=== PATIENT | female | born 1930 | race Caucasian/White ===

== ENCOUNTER 2016-07-09 11:58 | Inpatient (IN) | payer MEDICARE, MEDICAID ==
[~2016-07-09] VITALS: Ht 160 cm; Wt 79.8 kg
[~2016-07-09 11:58] MED LIST: ADVAIR; ALBU8.5H INH; ASPI-611 PO; CALC-191 PO; CIPR-280 PO; CLOP75TA PO; DOCU-175 PO; ENAL10TA PO; FURO40TA70 PO; GABA-215 PO; GUAI400T65 PO; HYDR-3989 PO; LATA2.5D7 BOTH EYES; MAGN250T33 PO; METR-116 PO; NEBI2.5T5 PO; OMEP40CA30 PO; PNEUMOCOCCAL VAC. ADMIN. CHARGE INJ ONE; POLY17PO2 PO; POTA-81 PO; TOLT4CAP12 PO
--- OUTSIDE RECORDS SUMMARY | 2016-07-09 12:03 | XMS REPORT | Continuity of Care Document ---
Author Author [facility] Organization [facility] Address Unknown Phone Unavailable Allergies Medications Problems Procedures Code Description Performed By Performed On 13.59 EXTRACAP LENS EXTRAC NEC 05/08/2012 13.90 OPERATION ON LENS, NOT ELSEWHERE CLASSIFIED Jose Hightower MD 05/08/2012 14.74 MECH VITRECTOMY NEC 05/08/2012 Results Test Result Range GLUCOSE (POC) - 05/08/12 06:34 GLUCOSE (POC) 130 mg/dL 70-99 HEMOGLOBIN - 05/08/12 06:41 MEAN CELL VOLUME 89.7 fl 80.0-100.0 HEMOGLOBIN 13.8 gm/dL 12.0-16.0 METABOLIC PANEL, BASIC - 05/08/12 06:41 POTASSIUM 4.1 mmol/L 3.5-5.3 EST GFR (MDRD) 41 mL/min > 59 ANION GAP 11 mmol/L 5-15 GLUCOSE 129 mg/dL 70-99 CALCIUM 9.4 mg/dL 8.5-10.1 BLOOD UREA NITROGEN 22 mg/dL 7-20 CREATININE 1.3 mg/dL 0.6-1.0 SODIUM 143 mmol/L 135-148 CHLORIDE 103 mmol/L 98-110 CARBON DIOXIDE 29 mmol/L 21-32 Encounters ACCT No. Visit Date/Time Discharge Status Pt. Type Provider Facility Loc./Unit Complaint [id number] 05/08/2012 05:57:00 2012 10:55:00 DIS Outpatient Jose Hightower MD [facility]
--- OUTSIDE RECORDS SUMMARY | 2016-07-09 12:03 | XMS REPORT | Continuity of Care Document ---
Author Author [facility] Organization [facility] Address Unknown Phone Unavailable Care Team Providers Care Skirt Trimmer Name Role Phone Yuval Hoang Primary Care Physician [phone] Source Comments Some departments are not documenting in the electronic medical record. If you do not see the information that you expected, contact Release of Information in the Health Information Management department at [phone] for further assistance in locating additional records.[facility] Active Allergies and Adverse Reactions Allergen Noted Date Severity Reactions Comments Aspartame 09/16/2010 UNKNOWN Contrast Dye Iv, Iodine 09/16/2010 RASH, ITCHING Containing Gluten 09/16/2010 SEE COMMENTS Celiac disease Keflex 09/16/2010 NAUSEA AND VOMITING Lactose 09/16/2010 NAUSEA AND VOMITING Merthiolate (Thimerosal) 09/16/2010 UNKNOWN Penicillins 09/16/2010 SEE COMMENTS Bruising from IM injection Cjoumvx-Dze-Kly Reductase 09/16/2010 UNKNOWN Inhibitors Current Medications Prescription Sig. Disp. Refills Start End Date Status Date budesonide/formoterol(+) Inhale 2 Puffs by mouth Active (SYMBICORT) 160/4.5 mcg twice daily. IN HFAA inhalation clonidine (CATAPRESS) 0.1 Take 0.1 mg by mouth Active mg PO tablet twice daily. hydrochlorothiazide Take 25 mg by mouth Active (HYDRODIURIL) 25 mg PO daily. tablet enalapril (VASOTEC) 10 mg Take 10 mg by mouth Active PO tablet daily. Aspirin 81 mg PO Tab Take 81 mg by mouth Active daily. potassium chloride SR Take 20 mEq by mouth Active (K-DUR) 20 mEq PO tablet daily. furosemide (LASIX) 40 mg Take 40 mg by mouth Active PO tablet daily. albuterol (PROVENTIL; Inhale 2 Puffs by mouth Active VENTOLIN) 90 every 6 hours as needed. mcg/Actuation IN inhaler albuterol-ipratropium Inhale 3 mL solution as Active (DUO-NEB) 0.5 mg-3 mg(2.5 directed every 6 hours as mg base)/3 mL IN needed. nebulizer solution nitroglycerin (NITROSTAT) Place 0.4 mg under tongue Active 0.4 mg SL tablet as Needed. tiotropium (SPIRIVA WITH Inhale 18 mcg by mouth Active HANDIHALER) 18 mcg IN daily. capsule for inhaler LUTEIN PO Take 45 mg by mouth Active daily. docusate (COLACE) 100 mg Take 100 mg by mouth four Active PO capsule times daily as needed. Magnesium 100 mg PO Cap Take 100 mg by mouth Active daily. CALCIUM CARBONATE/VITAMIN Take 2 Tabs by mouth Active D3 (CALCIUM 600 WITH twice daily. VITAMIN D3 PO) Red Yeast Rice Extract Take 2 Caps by mouth Active 600 mg PO Cap twice daily. Chromium Picolinate 500 Take 500 mcg by mouth Active mcg PO Cap twice daily. ferrous sulfate 325 mg Take 325 mg by mouth Active (65 mg iron) PO tablet daily. loratadine (CLARITIN) 10 Take 10 mg by mouth Active mg PO tablet daily. famotidine (PEPCID) 10 mg Take 10 mg by mouth twice Active PO tablet daily. oxycodone/acetaminophen Take 1 Tab by mouth every 60 Tab 0 09/22/19 Active (PERCOCET) 5/325 mg PO 4 hours as needed for 11 tablet Pain. senna/docusate Take 1 Tab by mouth twice 09/22/19 Active (SENOKOT-S) 8.6/50 mg PO daily. 11 tablet Active Problems Problem Noted Date Lumbar spinal stenosis 09/21/2010 Social History Tobacco Use Types Packs/Day Years Used Date Never Smoker Alcohol Use Drinks/Week oz/Week Comments No Last Filed Vital Signs Vital Sign Reading Time Taken Blood Pressure 121/51 09/21/2010 11:10 AM CDT Pulse 79 09/21/2010 11:10 AM CDT Temperature 37.2 C (98.9 F) 09/21/2010 11:10 AM CDT Respiratory Rate - - Height 1.6 m (5' 3") 09/16/2010 8:48 AM CDT Weight 83.3 kg (183 lb 10.3 oz) 09/16/2010 8:48 AM CDT Body Mass Index 32.54 09/16/2010 8:48 AM CDT Oxygen Saturation 97% 09/21/2010 11:34 AM CDT Plan of Care Health Maintenance Due Date Last Done Comments Physical (Comprehensive) 1935 Exam Pertussis Vaccine 1939 Tetanus Vaccine 1945 Shingles Vaccine 1988 Osteoporosis Screening 1993 Prevnar/Pneumovax (#1) 1993 Influenza Vaccine 12/10/2016 Results from Last 3 Months Not on file
--- OUTSIDE RECORDS SUMMARY | 2016-07-09 12:03 | XMS REPORT | Referral Summary ---
Author Author [facility] Organization [facility] Address Unknown Phone Unavailable Care Team Providers Care Design Project Manager Name Role Phone Andrey Maria Primary Care Physician [phone] Encounter VC Date(s): 08/27/14 - 08/27/14 [facility] [address] [place] [id number]- Discharge Disposition: 01-Home or Self Care Attending Physician: Juan Maria MD Admitting Physician: Amaya Gusman MD Vital Signs No data available for this section Problem List Condition Effective Dates Status Health Status Informant Allergic Active rhinitis(Confirmed) Allergy(Confirmed) Active Anxiety(Confirmed) Active Arthritis(Confirmed) Active Asthma(Confirmed) Active Afib(Confirmed) Active Benign essential Active hypertension (disorder)(Confirmed ) Cataracts, Active bilateral(Confirmed) Overactive Active bladder(Confirmed) Bronchitis(Confirmed Active ) Chicken Active pox(Confirmed) Chronic airway Active obstruction(Confirme d) Cirrhosis(Confirmed) Active Condition(Confirmed) Active 1 Condition(Confirmed) Active 2 condition(Confirmed) Active 3 CHF (congestive Active heart failure)(Confirmed) Coronary Active arteriosclerosis (disorder)(Confirmed ) Coronary Active atherosclerosis(Conf irmed) DDD (degenerative Active disc disease)(Confirmed) Depression(Confirmed Active ) Diabetes(Confirmed) Active Drug Active abuse(Confirmed) Ear Active infection(Confirmed) Fibromyalgia(Confirm Active ed) GERD Active (gastroesophageal reflux disease)(Confirmed) GI Active bleeding(Confirmed) Stress Active incontinence(Confirm ed) Glaucoma(Confirmed) Active High Active cholesterol(Confirme d) Hypertension(Confirm Active ed) Insomnia(Confirmed) Active Migraine Active headache(Confirmed) Obstructive sleep Active apnea, adult(Confirmed) Overweight(Confirmed Active ) Pneumonia(Confirmed) Active Psoriasis(Confirmed) Active Restless legs Active (disorder)(Confirmed ) Sinus Active infection(Confirmed) Sleep Active apnea(Confirmed) Substance Active abuse(Confirmed) TMJ Active disease(Confirmed) Tension Active headache(Confirmed) Ulcer(Confirmed) Active Urge Active incontinence(Confirm ed) 1digenerative disc disorder 2bladder problems 3bleeding Allergies, Adverse Reactions, Alerts Substance Reaction Severity Status cephalexin Active iodine Unknown Active penicillin Active Medications aspirin 81 mg, Oral, Daily, 0 Refill(s) Start Date: 09/24/13 Status: Ordered calcium carbonate Oral, Daily, 0 Refill(s) Start Date: 02/18/15 Status: Ordered clopidogrel 75 mg oral tablet 1 tabs, Oral, Daily, 0 Refill(s) Start Date: 04/15/14 Status: Ordered Colace 100 mg oral capsule 1 caps, Oral, BID, as needed for constipation, # 20 caps, 0 Refill(s) Start Date: 01/16/14 Status: Ordered enalapril 10 mg oral tablet 1 tabs, Oral, BID, # 60 tabs, 2 Refill(s), Pharmacy: [facility] , 1 tabs Oral BID Start Date: 01/30/14 Status: Ordered gabapentin 300 mg oral capsule 2 caps, Oral, BID, 0 Refill(s) Start Date: 09/24/13 Status: Ordered guaiFENesin 400 mg oral tablet 1 tabs, Oral, BID, 0 Refill(s) Start Date: 04/15/14 Status: Ordered latanoprost ophthalmic 1 drops, Eye-Both, Bedtime (once a day), 0 Refill(s) Start Date: 01/16/14 Status: Ordered magnesium oxide 250 mg oral tablet 1 tabs, Oral, Daily, 0 Refill(s) Start Date: 01/04/14 Status: Ordered metoprolol tartrate 25 mg oral tablet 25 mg 1 tabs, Oral, BID, # 180 tabs, 0 Refill(s) Start Date: 02/18/15 Status: Ordered MiraLax 17 g, Oral, Daily, 0 Refill(s) Start Date: 04/15/14 Status: Ordered [place] 5 mg-325 mg oral tablet 1 tabs, Oral, q4hr, as needed for pain, KATELIN, # 60 tabs, 0 Refill(s) Start Date: 09/11/14 Status: Ordered nystatin 100,000 units/g topical cream 1 malka, Topical, BID, Rash, 0 Refill(s) Start Date: 11/29/14 Status: Ordered nystatin 100,000 units/g topical powder 1 malka, Topical, BID, # 15 g, 0 Refill(s) Start Date: 02/18/15 Status: Ordered omeprazole 20 mg, Oral, Daily, 0 Refill(s) Start Date: 02/18/15 Status: Ordered potassium chloride 10 mEq oral capsule, extended release See Instructions, TAKE 2 CAPSULE (20MEQ) BY ORAL ROUTE 2 TIMES EVERY DAY WITH FOOD, # 60 unknown unit, 2 Refill(s), eRx: [facility] [id number], TAKE 1 CAPSULE (10MEQ) BY ORAL ROUTE 2 TIMES EVERY DAY WITH FOOD Start Date: 01/28/14 Status: Ordered ProAir HFA 90 mcg/inh inhalation aerosol 2 puffs, Inhalation, q4hr, as needed for wheezing, 0 Refill(s) Start Date: 01/16/14 Status: Ordered Symbicort 160 mcg-4.5 mcg/inh inhalation aerosol 2 puffs, Inhalation, BID, To replace Advair (non-formulary [employer]). Candi [facility] # 1 Each, 3 Refill(s) Start Date: 12/10/14 Status: Ordered tolterodine 2 mg oral capsule, extended release 2 mg 1 caps, Oral, Daily, # 90 caps, 0 Refill(s) Start Date: 02/18/15 Status: Ordered Results No data available for this section Immunizations Vaccine Date Refusal Reason influenza virus vaccine, inactivated 01/11/14 influenza virus vaccine, live 03/20/13 pneumococcal 23-polyvalent vaccine 01/02/14 zoster vaccine live 12/15/12 Procedures Procedure Date Related Diagnosis Body Site Eye examination 2012 Social History Social History Type Response Smoking Status Never smoker Assessment and Plan No data available for this section
--- OUTSIDE RECORDS SUMMARY | 2016-07-09 12:03 | XMS REPORT | Continuity of Care Document ---
Author Author [facility] Organization [facility] Address Unknown Phone Unavailable Support Name Relationship Address Phone JES SIEGEL MD Caregiver [address] [place] [address] [place] [address] PEDRO LIU MD Caregiver [address] [place] [address] [place] [phone] JUAN CLARK MD Caregiver [address] [place] [id number] [phone] DARLEEN LAWTON Next Of Kin [address] [place] [address] Insurance Providers Payer Name Policy Number Subscriber Name Relationship Medicare [id number] Aurelia Duran 16 Self [facility] [id number] Aurelia Duran 16 Self Advance Directives Directive Response Recorded Date/Time Advanced Directives Type Living Will 10/13/13 1:33pm Ordered Resuscitation Status Full Code 01/08/14 7:00pm Chief Complaint and Reason for Visit Chief Complaint CP, DIFFICULT BREATHING Reason for Visit Dyspnea on exertion COPD exacerbation Chest pain on exertion Pneumonia Dyspnea on exertion Diastolic CHF, chronic Obesity (BMI 30.0-34.9) Chest pain as manifestation of blood transfusion reaction HTN (hypertension) Elevated serum creatinine Hyponatremia Problems Medical Problems Problem Onset Date Status Headache, chronic daily Unknown Active Headache, chronic daily Unknown Active Muscle strain Unknown Active Cellulitis Unknown Active Candidiasis, intertrigo Unknown Active Lower extremity pain Unknown Active Muscle strain Unknown Active CHF exacerbation Unknown Active A-fib Unknown Active Asthma with COPD Unknown Active CAD (coronary artery disease) Unknown Active Diabetes Unknown Active GERD (gastroesophageal reflux disease) Unknown Active Insomnia Unknown Active Urge incontinence Unknown Active Sleep apnea Unknown Active Glaucoma Unknown Active Depression Unknown Active History of cirrhosis Unknown Resolved Dyspnea on exertion Unknown Active COPD exacerbation Unknown Active Chest pain on exertion Unknown Active Pneumonia Unknown Active Dyspnea on exertion Unknown Active Diastolic CHF, chronic Unknown Active Obesity (BMI 30.0-34.9) Unknown Active Chest pain as manifestation of blood transfusion reaction Unknown Active HTN (hypertension) Unknown Active Elevated serum creatinine Unknown Active Hyponatremia Unknown Active Medications Medication Dose Route Sig Days/Qty Instructions Order Date Discontinued Date Status Flaxseed 1,000 Mg PO DAILY 08/05/13 01/01/14 Discontinued Magnesium Oxide 250 Mg PO DAILY 08/05/13 Active Red Yeast Rice 1,200 Mg PO TWICE A DAY 08/05/13 Active Aspirin 81 Mg PO DAILY 08/05/13 Active Antiox#10/Om3/Dha/Epa/Lut/Zeax 1 Each PO DAILY 08/05/13 Active Calcium Carbonate 1 Tab PO TWICE A DAY 08/05/13 Active Fish Oil/Cartwright-3 Fatty Acids 1 Cap PO TWICE A DAY 08/05/13 Active Loratadine 10 Mg PO DAILY 08/05/13 Active Furosemide 40 Mg PO DAILY 10/13/13 Active Gabapentin 600 Mg PO TWICE A DAY 10/13/13 Active Omeprazole 40 Mg PO BEFORE BREAKFAST 10/13/13 Active Iron Ps Cmplx/Vit B12/Fa 1 Udcap PO TWICE A DAY 10/13/13 Active Potassium Chloride 10 Meq PO TWICE A DAY 10/13/13 Active Budesonide/Formoterol Fumarate 10.2 Gm IH TWICE A DAY 10/13/13 Active Tolterodine Tartrate 4 Mg PO DAILY 10/13/13 Active Nystatin 0 MC THREE TIMES A DAY 1 Qty Apply to affected area in right groin 3 times daily until 10/13/13 01/01/14 Discontinued Hydrocodone Bit/Acetaminophen 1-2 Tab PO EVERY 4-6 HOURS PRN PAIN 20 Qty 10/13/13 01/08/14 Discontinued Enalapril Maleate 1 Tab PO TWICE A DAY 60 Qty 01/03/14 Active Flaxseed 2,000 Mg PO TWICE A DAY 01/08/14 Active Docusate Sodium 1 Cap PO TWICE A DAY 01/08/14 Active Latanoprost 1 Drop RIGHT EYE BEDTIME 01/08/14 Active Meclizine HCl 1 Tab PO THREE TIMES A DAY PRN DIZZINESS 01/08/14 Active Albuterol Sulfate 2 Puff INH EVERY 4-6 HOURS PRN PRN ORDERS 01/08/14 Active Prednisone 0 PO DAILY For take per pk directions 1 Qty 01/12/14 Active Social History Social History Problem Response Recorded Date/Time Smoking Status Unknown if ever smoked 10/13/2013 1:39pm Hospital Discharge Instructions Instructions: Care Instructions: Reason for Hospitalization: COPD exacerbation I was in the hospital because (patient own words): "COUGH AND FIGHTING FOR BREATH" Discharge Diet: ADA, 2 gm low sodium, gluten free Discharge Activity: as tolerated Follow Up Appointments: see PCP in one week for hospital followup Patient Instructions: should your symptoms return you could contact your PCP through the office or return to the ED for emergent evaluation Condition at time of discharge: Good see discharge instructions Condition at time of discharge: Good Good 1.May drive in 4 weeks if you had your LEFT extremity operated on. 2.May drive in 6 weeks if you had your RIGHT extremity operated on. Wound/Incision Care: Tegaderm 1.Clear dressing is to remain in place for 2 weeks. 2.Do not pick at it or scrub it while showering. 3.If the dressing begins to pull up, secure it with 4x4 gauze pad and tape. 4.You may shower; however, do not submerge yourself in water until the incision is completely healed. Mepilex 1.Dressing to remain in place until your follow up appointment. 2.If this dressing starts peeling up slightly, it may be reinforced, if it peels excessively, notify your surgeon's office. 3.You may shower with the dressing in place, but do not submerge in water 4.Do not allow water to seep under the dressing, if it should seep under, remove the dressing and notify your surgeon. Notify Physician If: Call your Surgeon if you have: 1.Chest pain, difficulty breathing, fever>100.5 degrees, chills, heart rate >100, confusion, or persistent nausea/vomitting. 2.Severe pain, swelling, redness, or warmth in either of your legs. 3.During office hours, call [phone] 4. After hours, please call [facility] at [phone], and have the sand mill operator facing sand page your Surgeon IN THE EVENT OF AN EMERGENCY, seek medical care at the nearest Emergency Room Condition at time of discharge: Good Care Plan Discharge Patient: Goal: Understand discharge plan Patient Instructions: see patient instructions Plan of Care Discharge Date 01/12/14 6:00pm Disposition 06 HOME HEALTH SERVICE Instructions/Education Provided DI for Chronic Obstructive Pulmonary Disease Prednisone Prescriptions See Medications Section Functional Status Query Response Date Recorded Physical Hygiene Self January 12, 2014 3:37pm Disabilities Visual January 12, 2014 3:37pm Devices Used Walker January 12, 2014 3:37pm Dressing Self January 12, 2014 3:37pm Ambulation Assist January 12, 2014 3:37pm Diet Self January 12, 2014 3:37pm Mental Status Alert October 13, 2013 4:56pm Disabilities Visual January 12, 2014 3:37pm Devices Used Walker January 12, 2014 3:37pm Physical Hygiene Self January 12, 2014 3:37pm Dressing Self January 12, 2014 3:37pm Ambulation Assist January 12, 2014 3:37pm Diet Self January 12, 2014 3:37pm Allergies, Adverse Reactions, Alerts Allergen Type Severity Reaction Status Last Updated iodine Allergy Unknown Active 01/08/14 Penicillin Allergy Unknown Active 01/08/14 Cephalexin Allergy Intermediate Active 01/08/14 Immunizations Name Given Type Hx [place] [facility] [place] Pneumococcal Vacc[place]02[place] [facility] [place] [place] Hx Tetanus, Diptheria, Pertussis N UNKNOWN Historical Hx Influenza Vaccination [place] [facility] [place] [place] Hx Tetanus Diptheria N UNKNOWN Historical Hx Tetanus, Diptheria, Pertussis N UNKNOWN Historical Hx Tetanus Toxoid Vaccination N UNKNOWN Historical pneumococcal polysaccharide PPV23 01/02/14 Administered pneumococcal polysaccharide PPV23 01/02/14 Administered Influenza, seasonal, injectable 01/11/14 Administered Influenza, seasonal, injectable 01/11/14 Administered Influenza, seasonal, injectable 01/11/14 Administered Vital Signs Acute Vital Signs Vital Response Date/Time Temperature (Fahrenheit) 96.1 deg F (96.8 - 99.1) Temperature (Calculated Celsius) 35.18925 degrees C (36.0 - 37.3) Temperature Source Oral Pulse Rate (adult) 90 bpm (60 - 100) Respiratory Rate 18 breaths/min (10 - 20) O2 Sat by Pulse Oximetry 96 % (90 - 100) Oxygen Delivery Method Room Air Blood Pressure 151/82 mm Hg Blood Pressure Source Automatic Cuff Height 5 ft 3 in Weight 181 lb Body Mass Index 32.0 kg/m^2 Results Test Source Date Result Interp. Ref. Range Comments Activated Partial Thromboplast Time January 08, 2014 12:24pm 32.6 SEC N 24-36 Alanine Aminotransferase (ALT/SGPT) January 08, 2014 12:24pm 24 U/L N 9-52 Albumin January 08, 2014 12:24pm 4.4 G/DL N 3.5-5.0 Albumin/Globulin Ratio January 08, 2014 12:24pm 1.3 RATIO N 1.1-2.2 Alkaline Phosphatase January 08, 2014 12:24pm 75 U/L N 38-126 Amylase Level January 08, 2014 12:24pm 81 U/L N 30-110 Anion Gap January 12, 2014 5:29am 10 MEQ/L N 5-15 Aspartate Amino Transf (AST/SGOT) January 08, 2014 12:24pm 27 U/L N 14 -36 BUN/Creatinine Ratio January 12, 2014 5:29am 26 RATIO N 6-26 Band Neutrophils # January 10, 2014 4:26am 1.8 T/MM3 - Band Neutrophils % January 10, 2014 4:26am 12.0 % H 0-6 Basophils # (Auto) January 12, 2014 5:29am 0.0 T/MM3 N 0-0.2 Basophils (%) (Auto) January 12, 2014 5:29am 0.3 % N 0-2 Blood Urea Nitrogen January 12, 2014 5:29am 37.0 MG/DL H 7-17 C-Reactive Protein August 05, 2013 1:19pm 14.3 MG/L H 0-9 Calcium Level January 12, 2014 5:29am 9.1 MG/DL N 8.4-10.2 Calculated Osmolality January 12, 2014 5:29am 277 MOSM/KG N 261-280 Carbon Dioxide Level January 12, 2014 5:29am 27 MEQ/L N 22-30 Chemistry Specimen Hemolysis January 12, 2014 5:29am < 15 0-25 0-25: No Hemolysis.26-70: Slight Hemolysis - can falsely elevate K and Urine Protein. 71-285: Moderate Hemolysis - can falsely elevate K, Troponin I, CA 19-9, PTH, CSF GLucose, and Urine Protein, and can falsely decrease Phenytoin. 286-999: Gross Hemolysis - can falsely elevate K, Troponin I, CA 19-9, PTH, CSF Glucose, and Urine Protine, and can falsely decrease Phenytoin. Recommend specimen recollection. Chloride Level January 12, 2014 5:29am 99 MEQ/L N 98-107 Creatinine January 12, 2014 5:29am 1.4 MG/DL DH 0.7-1.2 Eosinophils # (Auto) January 12, 2014 5:29am 0.0 T/MM3 N 0-0.5 Eosinophils # (Manual) January 09, 2014 12:36am 0.1 T/MM3 N 0-0.5 Eosinophils % (Manual) January 09, 2014 12:36am 1.0 % N 0-4 Eosinophils (%) (Auto) January 12, 2014 5:29am 0.0 % N 0-4 Erythrocyte Sedimentation Rate August 05, 2013 1:19pm 17 MM/HR N 0-20 Globulin January 08, 2014 12:24pm 3.4 G/DL N 2.4-3.6 Glomerular Filtration Rate Calc January 12, 2014 5:29am 36 - Glucometer January 12, 2014 6:15am 159 mg/dL H 65-110 Glucose Level January 12, 2014 5:29am 204 MG/DL H 65-110 Hematocrit January 12, 2014 5:29am 38.5 % N 36-46 Hemoglobin January 12, 2014 5:29am 12.8 GM/DL N 12-16 Hemoglobin A1c January 01, 2014 5:56pm 6.0 % N 6-7 <6.0 NON-DIABETIC RANGE6.0-7.0 ADA THERAPEUTIC RANGE >7.0 ACTION SUGGESTED Icterus Index January 12, 2014 5:29am < 2 0-7 Immature Granulocyte # (Auto) January 12, 2014 5:29am 0.22 T/MM3 H 0.00- 0.03 Immature Granulocyte % (Auto) January 12, 2014 5:29am 2.0 % H 0.0-0.5 Lab Scanned Report January 01, 2014 9:21pm LAB TEST FORM REQUEST [id number] - Lipase January 08, 2014 12:24pm 136 U/L N 23-300 Lymphocytes # (Auto) January 12, 2014 5:29am 0.8 T/MM3 L 1-4.8 Lymphocytes # (Manual) January 11, 2014 4:41am 1.1 T/MM3 N 1-4.8 Lymphocytes % (Manual) January 11, 2014 4:41am 9.0 % L 23-45 Lymphocytes (%) (Auto) January 12, 2014 5:29am 7.1 % L 23-45 Magnesium Level January 09, 2014 12:36am 2.3 MG/DL N 1.6-2.3 Mean Corpuscular Hemoglobin January 12, 2014 5:29am 29.3 UUG N 26-34 Mean Corpuscular Hemoglobin Concent January 12, 2014 5:29am 33.2 GM/DL N 31-37 Mean Corpuscular Volume January 12, 2014 5:29am 88.1 UM3 N 80-100 Mean Platelet Volume January 12, 2014 5:29am 11.5 UM3 N 9.4-12.4 Monocytes # (Auto) January 12, 2014 5:29am 0.7 T/MM3 N 0-0.8 Monocytes # (Manual) January 11, 2014 4:41am 0.1 T/MM3 N 0-0.8 Monocytes % (Manual) January 11, 2014 4:41am 1.0 % N 0-9.0 Monocytes (%) (Auto) January 12, 2014 5:29am 6.0 % N 0-9.0 KI-Wub-J-Type Natriuretic Peptide January 08, 2014 12:24pm 133 PG/ML N 0-175 Rule in cut points: <50 years old=450; 50-75 years old=900; >75 years old=1800; When utilizing ProBNP rule-in cut points, adjustment for impaired renal function is typically not required. Neutrophils # (Auto) January 12, 2014 5:29am 9.5 T/MM3 H 1.8-7.7 Neutrophils # (Manual) January 11, 2014 4:41am 11.3 T/MM3 H 1.8-7.7 Neutrophils % (Manual) January 11, 2014 4:41am 90.0 % H 33-66 Neutrophils (%) (Auto) January 12, 2014 5:29am 84.6 % H 33-66 Platelet Count January 12, 2014 5:29am 188 T/MM3 N 130-400 Potassium Level January 12, 2014 5:29am 4.8 MEQ/L N 3.6-5 Prealbumin January 08, 2014 6:07pm 31.5 MG/DL N 17.6-36.0 COMMENT may use blood in lab Procalcitonin January 08, 2014 1:17pm < 0.05 NG/ML - PCT </=0.5 ng/ mL - sepsis not likely;PCT >0.5 and </=2 ng/mL - sepsis possible; PCT >2 ng/mL - sepsis likely; PCT >/=10 ng/mL - systemic inflammatory response - sepsis or septic shock highly indicated. Prothromb Time International Ratio January 08, 2014 12:24pm 0.90 N 0.81-1.09 THERAPUTIC RANGE=2.00-3.00 FOR ANTI-THROMBOSIS THERAPUTIC RANGE=2.50 -3.50 FOR IMPLANTED VALVE RDW Standard Deviation January 12, 2014 5:29am 47.0 FL N 36.9-50.2 Red Blood Count January 12, 2014 5:29am 4.37 M/MM3 N 4.00-5.20 Sodium Level January 12, 2014 5:29am 136 MEQ/L N 134-144 Thyroid Stimulating Hormone (TSH) January 08, 2014 12:24pm 1.93 MIU/L N 0.47-4.68 Total Bilirubin January 08, 2014 12:24pm 0.70 MG/DL N 0.20-1.30 Total Protein January 08, 2014 12:24pm 7.8 G/DL N 6.3-8.2 Troponin I January 09, 2014 12:36am < 0.012 ng/ml 0-0.12 Turbidity January 12, 2014 5:29am < 20 0-20 Urinalysis Comment January 01, 2014 8:10pm Microscopic not ind. - COMMENT UA, C&S REFLEXHas specimen been collected/obtained? Y Urine Bacteria January 08, 2014 3:05pm Trace H - Has specimen been collected/obtained? Y Urine Bilirubin January 08, 2014 3:05pm Negative - Has specimen been collected/obtained? Y Urine Blood January 08, 2014 3:05pm Trace-lysed H - Has specimen been collected/obtained? Y Urine Collection Type January 08, 2014 3:05pm Voided-not cc-midstr - Has specimen been collected/obtained? Y Urine Color January 08, 2014 3:05pm Yellow - Has specimen been collected/obtained? Y Urine Glucose (UA) January 08, 2014 3:05pm Negative - Has specimen been collected/obtained? Y Urine Ketones January 08, 2014 3:05pm Negative - Has specimen been collected/obtained? Y Urine Leukocyte Esterase January 08, 2014 3:05pm 1+ H - Has specimen been collected/obtained? Y Urine Nitrite January 08, 2014 3:05pm Negative - Has specimen been collected/obtained? Y Urine Protein January 08, 2014 3:05pm Negative - Has specimen been collected/obtained? Y Urine RBC January 08, 2014 3:05pm Trace /HPF - Has specimen been collected/obtained? Y Urine Specific [place] January 08, 2014 3:05pm 1.010 L - Has specimen been collected/obtained? Y Urine Squamous Epithelial Cells January 08, 2014 3:05pm 0-5 - Has specimen been collected/obtained? Y Urine Turbidity January 08, 2014 3:05pm Clear - Has specimen been collected/obtained? Y Urine Urobilinogen January 08, 2014 3:05pm 0.2 EU/DL - Has specimen been collected/obtained? Y Urine WBC January 08, 2014 3:05pm 3-5 /HPF - Has specimen been collected/obtained? Y Urine pH January 08, 2014 3:05pm 6.5 - Has specimen been collected/ obtained? Y Venous Blood Lactate January 08, 2014 1:17pm 2.0 MMOL/L N 0.6-2.2 White Blood Count January 12, 2014 5:29am 11.2 T/MM3 H 4.5-11.0 Blood Culture Blood January 08, 2014 1:17pm NO GROWTH AFTER 4 DAYS Name: AURELIA DURAN Unit #: [id number] : 1930 Sex: F Loc / Svc: ED DOS: 01/08/14 Signed Report #: [id number] DIAGNOSTIC IMAGING REPORT TYPE OF EXAM: CHEST, PA & LATERAL Dictated By: JUAN KENNY MD INDICATION: ITS.REASON: CHEST PAIN, SHORTNESS OF BREATH, COUGH COMPARISON: none. CHEST, PA LATERAL: Normal heart size. Minor increased lower lobe markings in the pneumonia or fibrosis. No evidence of CHF. There are monitoring leads. IMPRESSION: Possible lower lobe pneumonia or fibrosis. . Procedures No known history of procedures. Encounters Encounter Location Date/Time Discharged Inpatient [facility] 01/10/14 9:17am Discharged Inpatient [facility] 01/03/14 10:31am Registered Clinic [facility] 01/01/14 4:18pm Registered [facility] 11/06/13 8:54am Recent Diagnosis Dyspnea on exertion COPD exacerbation Chest pain on exertion Pneumonia Dyspnea on exertion Diastolic CHF, chronic Obesity (BMI 30.0-34.9) Chest pain as manifestation of blood transfusion reaction HTN (hypertension) Elevated serum creatinine Hyponatremia
--- OUTSIDE RECORDS SUMMARY | 2016-07-09 12:04 | XMS REPORT | Referral Summary ---
Author Author [facility] Organization [facility] Address Unknown Phone Unavailable Care Team Providers Care Statuary Painter Name Role Phone Andrey Maria Primary Care Physician [phone] Encounter VC Date(s): 12/24/14 - 12/24/14 [facility] [address] [place] [id number] Discharge Disposition: 01-Home or Self Care Attending Physician: Juan Maria MD Admitting Physician: Juan Maria MD Vital Signs No data available for [...] BID, # 60 tabs, 2 Refill(s), Pharmacy: [facility] , 1 tabs Oral BID Start Date: [...] 0 Refill(s) Start Date: 04/15/14 Status: Ordered [place] 5 mg-325 mg oral tablet 1 tabs, [...] # 60 unknown unit, 2 Refill(s), eRx: [id number], TAKE 1 CAPSULE (10MEQ) BY ORAL ROUTE 2 TIMES EVERY DAY WITH FOOD Start Date: 01/28/14 Status: Ordered ProAir HFA 90 mcg/inh inhalation aerosol 2 puffs, Inhalation, q4hr, as needed for wheezing, 0 Refill(s) Start Date: 01/16/14 Status: Ordered Symbicort 160 mcg-4.5 mcg/inh inhalation aerosol 2 puffs, Inhalation, BID, To replace Advair (non-formulary [employer]). Candi prather. [facility] # 1 Each, 3 Refill(s), Pharmacy: [facility] Start Date: 04/29/15 Status: Ordered tolterodine 2 mg oral capsule, extended release 2 mg 1 caps, Oral, Daily, # 90 caps, 0 Refill(s) Start Date: 02/18/15 Status: Ordered traMADol 50 mg oral tablet 50 mg 1 tabs, Oral, q8hr, jal, # 31 tabs, 3 Refill(s) Start Date: 03/31/15 Stop Date: 03/31/16 Status: Ordered Results No data available for this section Immunizations Vaccine Date Refusal Reason influenza virus vaccine, inactivated 01/11/14 influenza virus vaccine, live 03/20/13 pneumococcal 23-polyvalent vaccine 01/02/14 zoster vaccine live 12/15/12 Procedures Procedure Date Related Diagnosis Body Site Eye examination 2013 Social History Social History Type Response Smoking Status Never smoker Assessment and Plan No data available for this section
--- OUTSIDE RECORDS SUMMARY | 2016-07-09 12:04 | XMS REPORT | Continuity of Care Document ---
Author Author [facility] Organization [facility] Address Unknown Phone Unavailable Support Name Relationship Address Phone DASHA DE SANTIAGO MD Caregiver [address] [place] [phone] EDUARD CLARK MD Caregiver [address] [place] [phone] DARLEEN LAWTON Next Of Kin [address] [place] [phone] Insurance Providers Payer Name Policy Number Subscriber Name Relationship Medicare [id number] Aurelia Duran 16 Self [facility] [id number] Aurelia Duran 16 Self Advance Directives Directive Response Recorded Date/Time Advanced Directives Type Living Will 10/13/13 1:33pm Ordered Resuscitation Status Full Code, unverified 02/12/14 8:44am Resuscitation Documents on File No 02/12/14 8:30am Chief Complaint and Reason for Visit Chief Complaint Chest Pain Reason for Visit [id number] Dyspnea on exertion Chest pain on exertion Pneumonia Problems Medical Problems Problem Onset Date Status [...] PO TWICE A DAY 08/05/13 Active Fish Oil/Layton-3 Fatty Acids 1 Cap PO TWICE A DAY 08/05/13 Active Loratadine 10 Mg PO DAILY 08/05/13 Active Furosemide 40 Mg PO DAILY RESTART ON FEB 14. 10/13/13 Active Gabapentin 600 Mg PO TWICE A DAY 10/13/13 Active Omeprazole 40 Mg PO BEFORE BREAKFAST 10/13/13 Active Iron Ps Cmplx/Vit B12/Fa 1 Udcap PO TWICE A DAY 10/13/13 Active Potassium Chloride 10 Meq PO TWICE A DAY 10/13/13 02/12/14 Discontinued Budesonide/Formoterol Fumarate 10.2 Gm IH TWICE A DAY 10/13/13 Active Tolterodine Tartrate 4 Mg PO DAILY 10/13/13 Active Nystatin 0 MC THREE TIMES A DAY 1 Qty resolved. 10/13/13 01/01/14 Discontinued Hydrocodone Bit/Acetaminophen 1-2 Tab PO EVERY 4-6 HOURS PRN PAIN 20 Qty 10/13/13 01/08/14 Discontinued Enalapril Maleate 1 Tab PO TWICE A DAY 60 Qty 01/03/14 Active Flaxseed 2,000 Mg PO TWICE A DAY 01/08/14 Active Docusate Sodium 1 Cap PO NEEDED 01/08/14 Active Latanoprost 1 Drop RIGHT EYE BEDTIME 01/08/14 Active Meclizine HCl 1 Tab PO THREE TIMES A DAY PRN DIZZINESS 01/08/14 Active Albuterol Sulfate 2 Puff INH EVERY 4-6 HOURS PRN PRN ORDERS 01/08/14 Active Potassium Chloride 20 Meq PO TWICE DAILY WITH MEALS 0 Qty 02/12/14 Active Social History Social History Problem Response Recorded Date/Time Smoking Status Unknown if ever smoked 10/13/2013 1:39pm Hx Alcohol Use No 02/12/2014 8:34am Has the pt used tobacco in the last 12 months No 02/12/2014 8:34am Hospital Discharge Instructions Instructions: Care Instructions: Reason [...] evaluation Condition at time of discharge: Good Fever over 101.5. Redness or oozing of the incision. Increasing abdominal pain. Condition at time of discharge: Good 1)Cont PT/OT at current level. 2)Titrate oxygen to keep o2 sats equal to or greater than 90% on rest and exertion; take o2 sats daily Call MD if equal to or less than 90% 3) I&O per A.P protocol. Condition at time of discharge: Good General Information: n/a Condition at time of discharge: Fair Plan of Care Discharge Date 01/12/14 6:00pm Disposition 02 TO [facility] Condition at Discharge Stable Instructions/Education Provided DI for Chronic Obstructive Pulmonary Disease Prednisone Prescriptions See Medications Section Referrals EDUARD CLARK MD Functional Status Query Response Date Recorded Physical Hygiene Self January 12, 2014 3:37pm Mental Status Alert October 13, 2013 4:56pm Physical Hygiene Self January 12, 2014 3:37pm Allergies, Adverse Reactions, Alerts Allergen Type Severity Reaction Status Last Updated iodine Allergy Unknown Active 01/08/14 Penicillin Allergy Unknown Active 01/08/14 Cephalexin Allergy Intermediate Active 02/12/14 Immunizations Name Given Type Hx Influenza Vaccination Y PT UNSURE BELIEVES LAST ONE PASTIN 2012 Historical Hx Pneumococcal Vaccination Y GIVEN 01/02/14 AT [facility] Historical Hx Tetanus, Diptheria, Pertussis N UNKNOWN Historical Hx Influenza Vaccination Y PT UNSURE BELIEVES LAST ONE PASTIN 2012 Historical Hx Tetanus Diptheria N UNKNOWN Historical Hx Tetanus, Diptheria, Pertussis N UNKNOWN Historical Hx Tetanus Toxoid Vaccination N UNKNOWN Historical Vital Signs Acute Vital Signs Vital Response Date/Time Temperature (Fahrenheit) 96.3 deg F (96.8 - 99.1) Temperature (Calculated Celsius) 35.57208 degrees C (36.0 - 37.3) Temperature Source Temporal Pulse Rate (adult) 90 bpm (60 - 100) Respiratory Rate 24 breaths/min (10 - 20) O2 Sat by Pulse Oximetry 95 % (90 - 100) Oxygen Delivery Method Room Air Blood Pressure 154/71 mm Hg Blood Pressure Source Automatic Cuff Height 5 ft 3 in Weight 170 lb Body Mass Index 30.0 kg/m^2 Results Test Source Date Result Interp. [...] 12:24pm 81 U/L N 30-110 Anion Gap February 12, 2014 8:46am 16 MEQ/L H 5-15 COMMENT NURSE WILL CALL WHEN PT HERE Aspartate Amino Transf (AST/SGOT) January 08, 2014 12:24pm 27 U/L N 14 -36 BUN/Creatinine Ratio February 12, 2014 8:46am 32 RATIO H 6-26 COMMENT NURSE WILL CALL WHEN PT HERE Band Neutrophils # January 10, 2014 4:26am 1.8 T/MM3 - Band Neutrophils % January 10, 2014 4:26am 12.0 % H 0-6 Basophils # (Auto) February 12, 2014 8:46am 0.2 T/MM3 N 0-0.2 COMMENT NURSE WILL CALL WHEN PT HERE Basophils (%) (Auto) February 12, 2014 8:46am 1.1 % N 0-2 COMMENT NURSE WILL CALL WHEN PT HERE Blood Urea Nitrogen February 12, 2014 8:46am 38.0 MG/DL H 7-17 COMMENT NURSE WILL CALL WHEN PT HERE C-Reactive Protein August 05, 2013 1:19pm 14.3 MG/L H 0-9 Calcium Level February 12, 2014 8:46am 9.6 MG/DL N 8.4-10.2 COMMENT NURSE WILL CALL WHEN PT HERE Calculated Osmolality February 12, 2014 8:46am 281 MOSM/KG H 261-280 COMMENT NURSE WILL CALL WHEN PT HERE Carbon Dioxide Level February 12, 2014 8:46am 25 MEQ/L N 22-30 COMMENT NURSE WILL CALL WHEN PT HERE Chemistry Specimen Hemolysis February 12, 2014 8:46am 18 N 0-25 0-25: No Hemolysis.26-70: Slight Hemolysis - [...] decrease Phenytoin. Recommend specimen recollection. Chloride Level February 12, 2014 8:46am 99 MEQ/L N 98-107 COMMENT NURSE WILL CALL WHEN PT HERE Creatinine February 12, 2014 8:46am 1.2 MG/DL N 0.7-1.2 COMMENT NURSE WILL CALL WHEN PT HERE Eosinophils # (Auto) February 12, 2014 8:46am 0.0 T/MM3 N 0-0.5 COMMENT NURSE WILL CALL WHEN PT HERE Eosinophils # (Manual) January 09, 2014 12:36am 0.1 T/MM3 N 0-0.5 Eosinophils % (Manual) January 09, 2014 12:36am 1.0 % N 0-4 Eosinophils (%) (Auto) February 12, 2014 8:46am 0.3 % N 0-4 COMMENT NURSE WILL CALL WHEN PT HERE Erythrocyte Sedimentation Rate August 05, 2013 1:19pm 17 MM/HR N 0-20 Globulin January 08, 2014 12:24pm 3.4 G/DL N 2.4-3.6 Glomerular Filtration Rate Calc February 12, 2014 8:46am 43 - COMMENT NURSE WILL CALL WHEN PT HERE Glucometer January 12, 2014 6:15am 159 mg/dL H 65-110 Glucose Level February 12, 2014 8:46am 157 MG/DL H 65-110 COMMENT NURSE WILL CALL WHEN PT HERE Hematocrit February 12, 2014 8:46am 41.9 % N 36-46 COMMENT NURSE WILL CALL WHEN PT HERE Hemoglobin February 12, 2014 8:46am 13.8 GM/DL N 12-16 COMMENT NURSE WILL CALL WHEN PT HERE Hemoglobin A1c January 01, 2014 5:56pm 6.0 % N 6-7 <6.0 NON-DIABETIC RANGE6.0-7.0 ADA THERAPEUTIC RANGE >7.0 ACTION SUGGESTED Icterus Index February 12, 2014 8:46am < 2 0-7 COMMENT NURSE WILL CALL WHEN PT HERE Immature Granulocyte # (Auto) February 12, 2014 8:46am 0.12 T/MM3 H 0.00 -0.03 COMMENT NURSE WILL CALL WHEN PT HERE Immature Granulocyte % (Auto) February 12, 2014 8:46am 0.9 % H 0.0-0.5 COMMENT NURSE WILL CALL WHEN PT HERE Lab Scanned Report January 01, 2014 9:21pm LAB TEST FORM REQUEST [id number] - Lipase January 08, 2014 12:24pm 136 U/L N 23-300 Lymphocytes # (Auto) February 12, 2014 8:46am 1.3 T/MM3 N 1-4.8 COMMENT NURSE WILL CALL WHEN PT HERE Lymphocytes # (Manual) January 11, 2014 4:41am 1.1 T/MM3 N 1-4.8 Lymphocytes % (Manual) January 11, 2014 4:41am 9.0 % L 23-45 Lymphocytes (%) (Auto) February 12, 2014 8:46am 9.7 % L 23-45 COMMENT NURSE WILL CALL WHEN PT HERE Magnesium Level January 09, 2014 12:36am 2.3 MG/DL N 1.6-2.3 Mean Corpuscular Hemoglobin February 12, 2014 8:46am 28.9 UUG N 26-34 COMMENT NURSE WILL CALL WHEN PT HERE Mean Corpuscular Hemoglobin Concent February 12, 2014 8:46am 32.9 GM/DL N 31-37 COMMENT NURSE WILL CALL WHEN PT HERE Mean Corpuscular Volume February 12, 2014 8:46am 87.8 UM3 N 80-100 COMMENT NURSE WILL CALL WHEN PT HERE Mean Platelet Volume February 12, 2014 8:46am 11.2 UM3 N 9.4-12.4 COMMENT NURSE WILL CALL WHEN PT HERE Monocytes # (Auto) February 12, 2014 8:46am 1.6 T/MM3 H 0-0.8 COMMENT NURSE WILL CALL WHEN PT HERE Monocytes # (Manual) January 11, 2014 4:41am 0.1 T/MM3 N 0-0.8 Monocytes % (Manual) January 11, 2014 4:41am 1.0 % N 0-9.0 Monocytes (%) (Auto) February 12, 2014 8:46am 12.4 % H 0-9.0 COMMENT NURSE WILL CALL WHEN PT HERE TU-Qtd-N-Type Natriuretic Peptide January 08, 2014 12:24pm 133 PG/ML N 0-175 Rule in cut points: <50 years old=450; 50-75 years old=900; >75 years old=1800; When utilizing ProBNP rule-in cut points, adjustment for impaired renal function is typically not required. Neutrophils # (Auto) February 12, 2014 8:46am 9.9 T/MM3 H 1.8-7.7 COMMENT NURSE WILL CALL WHEN PT HERE Neutrophils # (Manual) January 11, 2014 4:41am 11.3 T/MM3 H 1.8-7.7 Neutrophils % (Manual) January 11, 2014 4:41am 90.0 % H 33-66 Neutrophils (%) (Auto) February 12, 2014 8:46am 75.6 % H 33-66 COMMENT NURSE WILL CALL WHEN PT HERE Platelet Count February 12, 2014 8:46am 283 T/MM3 N 130-400 COMMENT NURSE WILL CALL WHEN PT HERE Potassium Level February 12, 2014 8:46am 3.3 MEQ/L L 3.6-5 COMMENT NURSE WILL CALL WHEN PT HERE Prealbumin January 08, 2014 6:07pm 31.5 MG/DL [...] -3.50 FOR IMPLANTED VALVE RDW Standard Deviation February 12, 2014 8:46am 46.2 FL N 36.9-50.2 COMMENT NURSE WILL CALL WHEN PT HERE Red Blood Count February 12, 2014 8:46am 4.77 M/MM3 N 4.00-5.20 COMMENT NURSE WILL CALL WHEN PT HERE Sodium Level February 12, 2014 8:46am 140 MEQ/L N 134-144 COMMENT NURSE WILL CALL WHEN PT HERE Thyroid Stimulating Hormone (TSH) January 08, 2014 12:24pm 1.93 MIU/L N 0.47-4.68 Total Bilirubin January 08, 2014 12:24pm 0.70 MG/DL N 0.20-1.30 Total Protein January 08, 2014 12:24pm 7.8 G/DL N 6.3-8.2 Troponin I January 09, 2014 12:36am < 0.012 ng/ml 0-0.12 Turbidity February 12, 2014 8:46am < 20 0-20 COMMENT NURSE WILL CALL WHEN PT HERE Urinalysis Comment January 01, 2014 8:10pm Microscopic [...] Has specimen been collected/obtained? Y Urine Specific [place] January 08, 2014 3:05pm 1.010 L - [...] 2.0 MMOL/L N 0.6-2.2 White Blood Count February 12, 2014 8:46am 13.1 T/MM3 H 4.5-11.0 COMMENT NURSE WILL CALL WHEN PT HERE Blood Culture Blood January 08, 2014 1:17pm NO GROWTH AFTER 5 DAYS Name: AURELIA DURAN Unit #: [id number] : 1930 Sex: F DISCHARGE SUMMARY Admit Date: 01/10/14 Report #: [id number] General Date Date DATE: 01/12/14 TIME: 14:46 Attending Physician Magnus Back MD Admitting Physician Magnus Back MD Consulting Physician Sofy Christopher Admitting Diagnosis 1) COPD exacerbation Status: Acute (2) Diastolic CHF, chronic Status: Chronic (3) Chest pain on exertion Status: Acute (4) A-fib Status: Chronic (5) CAD (coronary artery disease) Status: Chronic (6) GERD (gastroesophageal reflux disease) Status: Chronic (7) HTN (hypertension) Status: Chronic (8) Sleep apnea Status: Chronic (9) Glaucoma Status: Chronic (10) Depression Status: Chronic (11) Insomnia Status: Chronic (12) Obesity (BMI 30.0-34.9) Status: Chronic Discharge Diagnosis same adding hyponatremia Laboratory Laboratory Laboratory Tests Test 01/12/14 01/12/14 05:29 06:15 White Blood Count 11.2 T/MM3 Red Blood Count 4.37 M/MM3 Hemoglobin 12.8 GM/DL Hematocrit 38.5 % Mean Corpuscular Volume 88.1 UM3 Mean Corpuscular Hemoglobin 29.3 UUG Mean Corpuscular Hemoglobin 33.2 GM/DL Concent RDW Standard Deviation 47.0 FL Platelet Count 188 T/MM3 Mean Platelet Volume 11.5 UM3 Immature Granulocyte % (Auto) 2.0 % Neutrophils (%) (Auto) 84.6 % Lymphocytes (%) (Auto) 7.1 % Monocytes (%) (Auto) 6.0 % Eosinophils (%) (Auto) 0.0 % Basophils (%) (Auto) 0.3 % Immature Granulocyte # (Auto) 0.22 T/MM3 Neutrophils # (Auto) 9.5 T/MM3 Lymphocytes # (Auto) 0.8 T/MM3 Monocytes # (Auto) 0.7 T/MM3 Eosinophils # (Auto) 0.0 T/MM3 Basophils # (Auto) 0.0 T/MM3 Turbidity < 20 Sodium Level 136 MEQ/L Potassium Level 4.8 MEQ/L Chloride Level 99 MEQ/L Carbon Dioxide Level 27 MEQ/L Anion Gap 10 MEQ/L Blood Urea Nitrogen 37.0 MG/DL Creatinine 1.4 MG/DL Glomerular Filtration Rate 36 Calc BUN/Creatinine Ratio 26 RATIO Glucose Level 204 MG/DL Calculated Osmolality 277 MOSM/KG Calcium Level 9.1 MG/DL Icterus Index < 2 Chemistry Specimen Hemolysis < 15 Glucometer 159 mg/dL History of Present Illness Aurelia Duran is an 83 year old woman who was recently admitted to [facility] for CHF exacerbation. She was discharged on 01/03, and had been getting along fairly well until today (01/08). She started experiencing diffuse chest pain, productive cough, and difficulty breathing, especially with exertion. She denies known fever/chills. She denies sinus problems. She denies abdominal pain, n/v/d , or urinary problems. She states that she hasn't had any leg swelling since getting home from the hospital. She presented to [facility] ED for evaluation. There, lab and imaging studies were obtained. CBC was stable. Lactate was at upper limits of normal at 2.0. On chemistries, her sodium was high at 146. UA showed 1+ leuk esterace and trace bacteria. EKG was NSR with nonspecific t wave changes. CXR was read as possible lower lobe pneumonia. BNP was 133, and troponin was < .012. Levaquin was initiated in the ED. Dr. Back was notified, and the patient was placed into outpatient observation status for further treatment and monitoring. Hospital Course Pt was admitted to the outpt unit but was later changed to an inpt as her stay exceeded the scope of observation. She was started on Levaquin for empiric abx coverage. Solumedrol was given and weaned slowly over her stay. Duonebs with pulmicort neb treatments and supplemental O2 was given. Mucinex was used for mucolysis. DVT and GI protection was utilized. Her lasix, TRUDY inhibitor and K was held due to a small rise in her Cr. She also had a small drop in her sodium level which normalized prior to DC. Overall her stay was one of good improvement. However at the end she was still needing some assistance. CM did get them set up with [facility]. She was instructed to f/u with her PCP in one week. Should her symptoms return she could contact her PCP through the office or return to the ED for emergent evaluation. Time spent in discharge activity was 40 minutes Problems: DVT Prophylaxis: SCD'S, Lovenox GI Prophylaxis: Protonix Code Status Full Code Home Meds Active Scripts Prednisone 5 Mg Tab.ds.pk Po Daily #1 Prov:OSCAR MCCORMICK DO 01/12/14 Enalapril Maleate 10 Mg Tablet1 Tab PO BID #60 TAB Prov:OSCAR MCCORMICK DO 01/03/14 Reported Medications Albuterol Sulfate (Proair Hfa)8.5 Gm Hfa.aer.ad2 Puff INH Q4-6H PRN (PRN ORDERS) 01/08/14 Meclizine HCl 25 Mg Tablet1 Tab PO TID PRN (DIZZINESS) 01/08/14 Latanoprost 2.5 Ml Drops1 Drop RIGHT EYE HS 01/08/14 Docusate Sodium 100 Mg Capsule1 Cap PO BID 01/08/14 Flaxseed (Flaxseed Oil)1,000 Mg Capsule2,000 Mg PO BID 01/08/14 Tolterodine Tartrate (Detrol La)4 Mg Cap.sr.24h4 Mg PO DAILY 10/13/13 Budesonide/Formoterol Fumarate (Symbicort 160-4.5 Mcg Inhaler)10.2 Gm Hfa.aer.ad10.2 Gm IH BID 10/13/13 Potassium Chloride 10 Meq Capsule.sa10 Meq PO BID 10/13/13 Iron Ps Cmplx/Vit B12/Fa (Poly-Iron 150 Forte Capsule)1 Udcap Capsule1 Udcap PO BID 10/13/13 Omeprazole (Prilosec)40 Mg Capsule.dr40 Mg PO ACB 10/13/13 Gabapentin 300 Mg [id number] Mg PO BID 10/13/13 Furosemide (Lasix)40 Mg Goyagb05 Mg PO DAILY 10/13/13 Loratadine 10 Mg Icfubd34 Mg PO DAILY 08/05/13 Fish Oil/Layton-3 Fatty Acids (Fish Oil 1,000 Mg Softgel)1 Cap Capsule1 Cap PO BID 08/05/13 Calcium Carbonate (Calcium 500)1 Tab Tablet1 Tab PO BID 08/05/13 Antiox#10/Om3/Dha/Epa/Lut/Zeax (I-Caps With Lutein-Layton 3 Sfg)1 Each Capsule1 Each PO DAILY 08/05/13 Aspirin 81 Mg Bqgrek97 Mg PO DAILY 08/05/13 Red Yeast Rice 600 Mg Tablet1,200 Mg PO BID 08/05/13 Magnesium Oxide (Magnesium)250 Mg Oqwamq610 Mg PO DAILY 08/05/13 Discharge Disposition stable Copies To 1: EDUARD CLARK MD, CARRIE DO Jan 12, 2014 14:46 Procedures No known history of procedures. Encounters Encounter Location Date/Time Departed [facility] 02/12/14 8:06am Registered [facility] 01/29/14 9:54am Discharged Inpatient [facility] 01/10/14 9:17am Discharged Inpatient [facility] 01/03/14 10:31am Registered [facility] 01/01/14 4:18pm
--- OUTSIDE RECORDS SUMMARY | 2016-07-09 12:04 | XMS REPORT | Continuity of Care Document ---
Author Author [facility] Organization [facility] Address Unknown Phone Unavailable Support Name Relationship Address Phone LEVAR DE SANTIAGO MD Caregiver [address] [id number] EDUARD CLARK MD Caregiver [address] [place], [place] [phone] [place] Next Of Kin [address] [place], [place] [id number] Insurance Providers Payer Name Policy Number Subscriber Name Relationship Medicare [id number] Aurelia Duran 16 Self [facility] [id number] Aurelia Duran 16 Self Advance Directives Directive Response Recorded Date/Time Advanced Directives Type Living Will 10/13/13 1:33pm Ordered Resuscitation Status Full Code, unverified 02/19/14 3:20am Chief Complaint and Reason for Visit Chief Complaint Chest Pain Reason for Visit [id number] Dyspnea on exertion Chest pain on exertion [...] PO TWICE A DAY 08/05/13 Active Fish Oil/[place]-3 Fatty Acids 1 Cap PO TWICE A [...] TWICE A DAY 60 Qty 01/03/14 Active Docusate Sodium 1 Cap PO NEEDED 01/08/14 Active Latanoprost 1 Drop RIGHT EYE BEDTIME 01/08/14 Active Meclizine HCl 1 Tab PO THREE TIMES A DAY PRN DIZZINESS 01/08/14 Active Albuterol Sulfate 2 Puff INH EVERY 4-6 HOURS PRN PRN ORDERS 01/08/14 Active Potassium Chloride 20 Meq PO TWICE DAILY WITH MEALS 0 Qty 02/12/14 Active Guaifenesin 1 Tab PO TWICE A DAY 02/19/14 Active Sodium Chloride 1 [place] NS NEEDED 02/19/14 Active Clopidogrel Bisulfate 75 Mg PO DAILY 30 Qty 02/19/14 Active Social History Social History Problem Response Recorded Date/Time Smoking Status Unknown if ever smoked 10/13/2013 1:39pm Chewing Tobacco Status No 02/18/2014 11:26am Hx Substance Use No 02/18/2014 11:26am Hx Alcohol Use No 02/18/2014 11:26am Has the pt used tobacco in the last 12 months No 02/18/2014 11:26am Hospital Discharge Instructions Instructions: Care Instructions: Reason [...] evaluation Condition at time of discharge: Good Discharge Diet: regular Discharge Activity: as tolerated Follow Up Appointments: Follow up with Dr. Clark as needed Condition at time of discharge: Good n/a Condition at time of discharge: Fair Plan of Care Discharge Date 01/12/14 6:00pm Disposition 02 TO [facility] Condition at Discharge Stable Instructions/Education Provided [...] Name Given Type Hx Influenza Vaccination Y JANUARY 2014 Historical Hx Pneumococcal Vaccination Y GIVEN 01/02/14 AT [facility] Historical Hx Tetanus, Diptheria, Pertussis N UNKNOWN Historical Hx Influenza Vaccination Y JANUARY 2014 Historical Hx Tetanus Diptheria N UNKNOWN Historical Hx Tetanus, Diptheria, Pertussis N UNKNOWN Historical Hx Tetanus Toxoid Vaccination N UNKNOWN Historical Vital Signs Acute Vital Signs Vital Response Date/Time Temperature (Fahrenheit) 96.7 deg F (96.8 - 99.1) Temperature (Calculated Celsius) 35.17864 degrees C (36.0 - 37.3) Temperature Source Temporal Pulse Rate (adult) 90 bpm (60 - 100) O2 Sat by Pulse Oximetry 94 % (90 - 100) Oxygen Delivery Method Nasal Cannula Oxygen Flow Rate 1.00 L/min Blood Pressure 147/68 mm Hg Blood Pressure Source Automatic Cuff Height 5 ft 3 in Weight 171 lb Body Mass Index 30.0 kg/m^2 Results [...] 81 U/L N 30-110 Anion Gap February 19, 2014 6:29am 10 MEQ/L N 5-15 COMMENT WILL CALL LAB WHEN NEEDED Aspartate Amino Transf (AST/SGOT) January 08, 2014 12:24pm 27 U/L N 14 -36 BUN/Creatinine Ratio February 19, 2014 6:29am 23 RATIO N 6-26 COMMENT WILL CALL LAB WHEN NEEDED Band Neutrophils # February 19, 2014 6:29am 0.2 T/MM3 - COMMENT WILL CALL LAB WHEN NEEDED Band Neutrophils % February 19, 2014 6:29am 2.0 % DN 0-6 COMMENT WILL CALL LAB WHEN NEEDED Basophils # (Auto) February 12, 2014 8:46am 0.2 T/MM3 N 0-0.2 COMMENT NURSE WILL CALL WHEN PT HERE Basophils (%) (Auto) February 12, 2014 8:46am 1.1 % N 0-2 COMMENT NURSE WILL CALL WHEN PT HERE Blood Urea Nitrogen February 19, 2014 6:29am 27.0 MG/DL H 7-17 COMMENT WILL CALL LAB WHEN NEEDED C-Reactive Protein August 05, 2013 1:19pm 14.3 MG/L H 0-9 Calcium Level February 19, 2014 6:29am 9.2 MG/DL N 8.4-10.2 COMMENT WILL CALL LAB WHEN NEEDED Calculated Osmolality February 19, 2014 6:29am 266 MOSM/KG N 261-280 COMMENT WILL CALL LAB WHEN NEEDED Carbon Dioxide Level February 19, 2014 6:29am 26 MEQ/L N 22-30 COMMENT WILL CALL LAB WHEN NEEDED Chemistry Specimen Hemolysis February 19, 2014 6:29am 223 H 0-25 0-25: No Hemolysis.26-70: Slight Hemolysis - [...] Phenytoin. Recommend specimen recollection. Chloride Level February 19, 2014 6:29am 98 MEQ/L N 98-107 COMMENT WILL CALL LAB WHEN NEEDED Creatinine February 19, 2014 6:29am 1.2 MG/DL N 0.7-1.2 COMMENT WILL CALL LAB WHEN NEEDED Eosinophils # (Auto) February 12, 2014 8:46am 0.0 T/MM3 N 0-0.5 COMMENT NURSE WILL CALL WHEN PT HERE Eosinophils # (Manual) February 19, 2014 6:29am 0.1 T/MM3 N 0-0.5 COMMENT WILL CALL LAB WHEN NEEDED Eosinophils % (Manual) February 19, 2014 6:29am 1.0 % N 0-4 COMMENT WILL CALL LAB WHEN NEEDED Eosinophils (%) (Auto) February 12, 2014 8:46am 0.3 % N 0-4 COMMENT NURSE WILL CALL WHEN PT HERE Erythrocyte Sedimentation Rate August 05, 2013 1:19pm 17 MM/HR N 0-20 Globulin January 08, 2014 12:24pm 3.4 G/DL N 2.4-3.6 Glomerular Filtration Rate Calc February 19, 2014 6:29am 43 - COMMENT WILL CALL LAB WHEN NEEDED Glucometer January 12, 2014 6:15am 159 mg/dL H 65-110 Glucose Level February 19, 2014 6:29am 157 MG/DL H 65-110 COMMENT WILL CALL LAB WHEN NEEDED Hematocrit February 19, 2014 6:29am 39.0 % N 36-46 COMMENT WILL CALL LAB WHEN NEEDED Hemoglobin February 19, 2014 6:29am 13.2 GM/DL N 12-16 COMMENT WILL CALL LAB WHEN NEEDED Hemoglobin A1c January 01, 2014 5:56pm 6.0 % N 6-7 <6.0 NON-DIABETIC RANGE6.0-7.0 ADA THERAPEUTIC RANGE >7.0 ACTION SUGGESTED Icterus Index February 19, 2014 6:29am < 2 0-7 COMMENT WILL CALL LAB WHEN NEEDED Immature Granulocyte # (Auto) February 12, 2014 8:46am 0.12 T/MM3 H 0.00 -0.03 COMMENT NURSE WILL CALL WHEN PT HERE Immature Granulocyte % (Auto) February 12, 2014 8:46am 0.9 % H 0.0-0.5 COMMENT NURSE WILL CALL WHEN PT HERE Lab Scanned Report January 01, 2014 9:21pm LAB TEST FORM REQUEST [id number] - Lipase January 08, 2014 12:24pm 136 U/L N 23-300 Lymphocytes # (Auto) February 12, 2014 8:46am 1.3 T/MM3 N 1-4.8 COMMENT NURSE WILL CALL WHEN PT HERE Lymphocytes # (Manual) February 19, 2014 6:29am 1.5 T/MM3 N 1-4.8 COMMENT WILL CALL LAB WHEN NEEDED Lymphocytes % (Manual) February 19, 2014 6:29am 13.0 % L 23-45 COMMENT WILL CALL LAB WHEN NEEDED Lymphocytes (%) (Auto) February 12, 2014 8:46am 9.7 % L 23-45 COMMENT NURSE WILL CALL WHEN PT HERE Magnesium Level January 09, 2014 12:36am 2.3 MG/DL N 1.6-2.3 Mean Corpuscular Hemoglobin February 19, 2014 6:29am 29.1 UUG N 26-34 COMMENT WILL CALL LAB WHEN NEEDED Mean Corpuscular Hemoglobin Concent February 19, 2014 6:29am 33.8 GM/DL N 31-37 COMMENT WILL CALL LAB WHEN NEEDED Mean Corpuscular Volume February 19, 2014 6:29am 86.1 UM3 N 80-100 COMMENT WILL CALL LAB WHEN NEEDED Mean Platelet Volume February 19, 2014 6:29am 11.8 UM3 N 9.4-12.4 COMMENT WILL CALL LAB WHEN NEEDED Monocytes # (Auto) February 12, 2014 8:46am 1.6 T/MM3 H 0-0.8 COMMENT NURSE WILL CALL WHEN PT HERE Monocytes # (Manual) February 19, 2014 6:29am 1.1 T/MM3 H 0-0.8 COMMENT WILL CALL LAB WHEN NEEDED Monocytes % (Manual) February 19, 2014 6:29am 10.0 % H 0-9.0 COMMENT WILL CALL LAB WHEN NEEDED Monocytes (%) (Auto) February 12, 2014 8:46am 12.4 % H 0-9.0 COMMENT NURSE WILL CALL WHEN PT HERE VX-Hpo-M-Type Natriuretic Peptide January 08, 2014 12:24pm 133 PG/ML N 0-175 Rule in cut points: <50 years old=450; 50-75 years old=900; >75 years old=1800; When utilizing ProBNP rule-in cut points, adjustment for impaired renal function is typically not required. Neutrophils # (Auto) February 12, 2014 8:46am 9.9 T/MM3 H 1.8-7.7 COMMENT NURSE WILL CALL WHEN PT HERE Neutrophils # (Manual) February 19, 2014 6:29am 8.4 T/MM3 H 1.8-7.7 COMMENT WILL CALL LAB WHEN NEEDED Neutrophils % (Manual) February 19, 2014 6:29am 74.0 % H 33-66 COMMENT WILL CALL LAB WHEN NEEDED Neutrophils (%) (Auto) February 12, 2014 8:46am 75.6 % H 33-66 COMMENT NURSE WILL CALL WHEN PT HERE Platelet Count February 19, 2014 6:29am 192 T/MM3 N 130-400 COMMENT WILL CALL LAB WHEN NEEDED Potassium Level February 19, 2014 6:29am 5.0 MEQ/L N 3.6-5 K+ REDRAWN AT 0745 02/19/14, K+ REDRAW RESULT 5.0--- 02/19/14 0923 --- K previously reported as: 5.6 H MEQ/L Prealbumin January 08, 2014 6:07pm 31.5 MG/DL [...] FOR IMPLANTED VALVE RDW Standard Deviation February 19, 2014 6:29am 45.0 FL N 36.9-50.2 COMMENT WILL CALL LAB WHEN NEEDED Red Blood Count February 19, 2014 6:29am 4.53 M/MM3 N 4.00-5.20 COMMENT WILL CALL LAB WHEN NEEDED Sodium Level February 19, 2014 6:29am 134 MEQ/L N 134-144 COMMENT WILL CALL LAB WHEN NEEDED Thyroid Stimulating Hormone (TSH) January 08, 2014 12:24pm 1.93 MIU/L N 0.47-4.68 Total Bilirubin January 08, 2014 12:24pm 0.70 MG/DL N 0.20-1.30 Total Protein January 08, 2014 12:24pm 7.8 G/DL N 6.3-8.2 Troponin I January 09, 2014 12:36am < 0.012 ng/ml 0-0.12 Turbidity February 19, 2014 6:29am < 20 0-20 COMMENT WILL CALL LAB WHEN NEEDED Urinalysis Comment January 01, 2014 8:10pm Microscopic [...] Has specimen been collected/obtained? Y Urine Specific [place] January 08, 2014 3:05pm 1.010 L - [...] MMOL/L N 0.6-2.2 White Blood Count February 19, 2014 6:29am 11.4 T/MM3 H 4.5-11.0 COMMENT WILL CALL LAB WHEN NEEDED Blood Culture Blood January 08, 2014 1:17pm NO GROWTH AFTER 5 DAYS Name: AURELIA DURAN Unit #: [id number] : 1930 Sex: F DISCHARGE SUMMARY Admit Date: 01/10/14 Report #: [id number] General Date Date DATE: 01/12/14 TIME: 14:46 [...] old woman who was recently admitted to [facility] for CHF exacerbation. She was discharged on [...] home from the hospital. She presented to [facility] ED for evaluation. There, lab and imaging [...] CM did get them set up with [facility]. She was instructed to f/u with [...] Mg PO ACB 10/13/13 Gabapentin 300 Mg Swlplnq464 Mg PO BID 10/13/13 Furosemide (Lasix)40 Mg Cffwvd54 Mg PO DAILY 10/13/13 Loratadine 10 Mg Ecvoql33 Mg PO DAILY 08/05/13 Fish Oil/[place]-3 Fatty Acids (Fish Oil 1,000 Mg Softgel)1 Cap Capsule1 Cap PO BID 08/05/13 Calcium Carbonate (Calcium 500)1 Tab Tablet1 Tab PO BID 08/05/13 Antiox#10/Om3/Dha/Epa/Lut/Zeax (I-Caps With Lutein-[place] 3 Sfg)1 Each Capsule1 Each PO DAILY 08/05/13 Aspirin 81 Mg Mrepzp36 Mg PO DAILY 08/05/13 Red Yeast Rice 600 Mg Tablet1,200 Mg PO BID 08/05/13 Magnesium Oxide (Magnesium)250 Mg Xdbvtz498 Mg PO DAILY 08/05/13 Discharge Disposition stable Copies To 1: EDUARD CLARK MD, CARRIE DO Jan 12, 2014 14:46 Procedures Procedure Status Date Provider(s) ROUTINE VENIPUNCTURE completed 02/12/14 METABOLIC PANEL TOTAL CA completed 02/12/14 COMPLETE CBC W/AUTO DIFF WBC completed 02/12/14 ELECTROCARDIOGRAM TRACING completed 02/12/14 L HRT ARTERY/VENTRICLE ANGIO completed 02/12/14 DASHA DE SANTIAGO MD [id number] ITEM OR SERVICE completed 02/12/14999536"INJECTION, DIPHENHYDRAMINE HCL, UP TO 50 MG" completed 02/12/14269897"INJECTION, HEPARIN SODIUM, PER 1000 UNITS" completed 02/12/14044249"INJECTION, HEPARIN SODIUM, PER 1000 UNITS" completed 02/12/14242738"INJECTION, MIDAZOLAM HYDROCHLORIDE, PER 1 MG" completed 02/12/14830953"INJECTION, METHYLPREDNISOLONE SODIUM SUCCINATE, UP TO completed 003"INJECTION, FENTANYL CITRATE, 0.1 MG" completed 02/12/14883429CTQBIQYHTVUE DRUGS completed 02/12/14993402"INFUSION, NORMAL SALINE SOLUTION , 1000 CC" completed 02/12/14696386"LOW OSMOLAR CONTRAST MATERIAL, 300-399 MG/ML IODINE C completed Encounters Encounter Location Date/Time Departed [facility] 02/19/14 5:57am Departed [facility] 02/12/14 8:06am Registered Clinic [facility] 01/29/14 9:54am Discharged Inpatient [facility] 01/10/14 9:17am Discharged Inpatient [facility] 01/03/14 10:31am Registered Clinic [facility] 01/01/14 4:18pm
--- OUTSIDE RECORDS SUMMARY | 2016-07-09 12:04 | XMS REPORT | Continuity of Care Document ---
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 Name Role Phone Juan Maria PP Unavailable Payers Payer name Insurance type Covered alliance party ID Authorization(s) Unknown Problems Condition Effective Dates (start - stop) Clinical Status Hip pain, right - *Acute COPD - *Chronic CAD, Unspecified - *Chronic RESTLESS LEGS SYNDROME - *Chronic Hypertension, Benign - *Chronic Celiac disease - *Chronic NEED FOR PROPHYLACTIC VACCINATION AND INOCULATION, OTHER VIRAL DISEASES - DJD (degenerative joint disease), lumbar - *Chronic Right hip pain - *Symptomatic Headache - *Chronic COPD - *Chronic CAD, Unspecified - *Chronic RESTLESS LEGS SYNDROME - *Chronic Hypertension, Benign - *Chronic COPD - Chronic CAD, Unspecified - Chronic RESTLESS LEGS SYNDROME - Chronic Hypertension, Benign - Chronic CAD, Unspecified - *Chronic Hypertension, Benign - *Chronic RESTLESS LEGS SYNDROME - *Chronic COPD - *Chronic CAD, Unspecified - Chronic Hypertension, Benign - Chronic RESTLESS LEGS SYNDROME - Chronic COPD - Chronic Headache - *Acute Hypertension, Benign - *Chronic CAD, Unspecified - *Chronic COPD - *Chronic RESTLESS LEGS SYNDROME - *Chronic Headache - *Chronic Influenza Vaccine - COPD - Chronic COPD - *Chronic CAD, Unspecified - *Chronic RESTLESS LEGS SYNDROME - *Chronic Hypertension, Benign - *Chronic COPD - Chronic CAD, Unspecified - Chronic RESTLESS LEGS SYNDROME - Chronic Hypertension, Benign - Chronic Back pain - *Chronic Stomach tumor (benign) - *Chronic Family History Family Member Diagnosis Age At Onset Status Unknown Social History Social History Element Description Quantity Unknown Allergies, Adverse Reactions, Alerts Substance Reaction Severity Status CEPHALEXIN MONOHYDRATE Unknown PENICILLINS Unknown IODINE Unknown Unknown Medications Medication Instructions Dosage Effective Dates (start - stop) Status tramadol 50 mg tablet take 1 tablet (50MG) by oral route every 6 hours as needed 50 MG - No Longer Active Test daily fasting or 2 hours after meals 250.00 - Active Symbicort 160 mcg-4.5 mcg/actuation HFA aerosol inhaler inhale 2 puff by inhalation route 2 times every day 0 - Active albuterol sulfate HFA 90 mcg/actuation aerosol inhaler inhale 2 puff by inhalation route every 4 - 6 hours as needed 0 - Active aspirin, buffered 81 mg tablet 1 t, po, qd - Active red yeast rice 600 mg capsule 4 c, po, qd - Active loratadine 10 mg tablet take 1 tablet (10MG) by oral route every day as needed as needed 10 MG - Active Calcium 600 600 mg (1,500 mg) tablet take 1 by Oral route every day 0 - Active magnesium 100 mg capsule 1 c, po, tid - Active fish oil-fat acid comb8-herb prbo147 1,200 mg (400 gg-[id number]) cap 4 c, po , qd - Active I-Caps 280 mg-10 mg-2 mg capsule 1 c, po, qd - Active Tylenol Ex Str Arthritis Pain 500 mg tablet take 2 tablet (1000MG) by oral route every 8 hours as needed as needed 1000 MG - Active latanoprost 0.005 % eye drops instill 1 drop by ophthalmic route every day into affected eye(s) in the evening 0 - Active Accu-Chek Janina Plus Meter Test daily fasting or 2 hours after meals dx 250.00 - Active Accu-Chek Janina strips Test daily fasting or 2 hours after meals dx 250.00 - Active enalapril maleate 10 mg tablet take 1.5 Tablet (15MG) by oral route every day 15 MG - Active furosemide 40 mg tablet take 1 Tablet (40MG) by oral route every day Apr - Active omeprazole 40 mg capsule,delayed release take 1 capsule (40MG) by oral route every day at bedtime 40 MG - Active Detrol LA 4 mg capsule,extended release take 1 capsule (4MG) by oral route every day 4 MG - Active potassium chloride ER 10 mEq capsule,extended release take 1 capsule (10MEQ) by oral route 2 times every day with food 10 MEQ - Active Poly-Iron 150 Forte 150 mg-25 mcg-1 mg capsule take 1 capsule by oral route 2 times every day 0 - Active gabapentin 300 mg capsule take 2 Capsule (600MG) by oral route every day at HS 600 MG - Active meclizine 25 mg tablet take 1 tablet (25MG) by oral route 3 times every day as needed for dizziness 25 MG - Active tramadol 50 mg tablet take 1 tablet (50MG) by oral route every 6 hours as needed 50 MG - Active Immunizations Vaccine Date Status Comments Zoster completed Flu (split) (3 yrs or older) completed Results Test Name Date and Time Measure Units Reference Range Abnormal Flag Comments Unknown Vital Signs Date / Time: Height Weight Pulse Rate Blood Pressure Temperature /13:51:00 63.00 in 181.40 lbs 72 /min 130/66 mm[Hg] 97.7 F Procedures Procedure Date Unknown Encounters Encounter Location Date Patient Visit [facility] Patient [facility] Patient [facility] Patient [facility] Patient [facility] Patient [facility] Patient [facility] Patient Visit [facility] Patient Visit [facility] Patient [facility] Patient Visit [facility] Advance Directives Directive Effective Date Unknown
--- OUTSIDE RECORDS SUMMARY | 2016-07-09 12:04 | XMS REPORT | Referral Summary ---
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 Role Phone Andrey Maria Primary Care Physician [phone] Encounter VC Date(s): 06/10/14 - 06/10/14 [facility], [place] [address] , [facility] [address] [place], [place] [address] Discharge Diagnosis: Obstructive sleep apnea, adult Discharge Disposition: Home or Self Care Attending Physician: Roldan Alejandre MD Admitting Physician: Roldan Alejandre MD Vital Signs Most recent to 1 oldest [Reference Range]: Peripheral Pulse 64 bpm Rate [60-100 bpm] (06/10/14 11:22 AM) Blood Pressure 110/62 mmHg [90-140/60-90 mmHg] (06/10/14 11:22 AM) Most recent to 1 oldest [Reference Range]: SpO2 93 % (06/10/14 11:22 AM) Problem List Condition Effective Dates Status Health [...] Active iodine Unknown Active penicillin Active Medications acetaminophen 325 mg oral tablet 2 tabs, Oral, q4hr, as needed for pain, not to exceed 3000 mg in 24 hour period , # 120 tabs, 0 Refill(s) Special Instructions: not to exceed 3000 mg in 24 hour period Start Date: 06/10/14 Status: Ordered Asper-Flex 0 Refill(s) Start Date: 06/10/14 Status: Ordered aspirin 81 mg, Oral, Daily, 0 Refill(s) Start Date: 09/24/13 Status: Ordered Calcium 600+D 1 tabs, Oral, BID, 0 Refill(s) Start Date: 09/24/13 Status: Ordered clopidogrel 75 mg oral tablet 1 tabs, Oral, Daily, 0 Refill(s) Start Date: 04/15/14 Status: Ordered Colace 100 mg oral capsule 1 caps, Oral, BID, as needed for constipation, # 20 caps, 0 Refill(s) Start Date: 01/16/14 Status: Ordered enalapril 10 mg oral tablet 1 tabs, Oral, BID, # 60 tabs, 2 Refill(s), Pharmacy: [facility] [id number] , 1 tabs Oral BID Start Date: 01/30/14 Status: Ordered Fish Oil 1200 mg oral capsule 1 caps, Oral, BID, 0 Refill(s) Start Date: 09/24/13 Status: Ordered furosemide 40 mg oral tablet See Instructions, TAKE 1 TABLET (40MG) BY ORAL ROUTE EVERY DAY, # 30 unknown unit, 2 Refill(s), eRx: [facility] [id number], TAKE 1 TABLET (40MG) BY ORAL ROUTE EVERY DAY Special Instructions: TAKE 1 TABLET (40MG) BY ORAL ROUTE EVERY DAY Start Date: 04/08/14 Status: Ordered gabapentin 300 mg oral capsule 2 caps, Oral, BID, 0 Refill(s) Start Date: 09/24/13 Status: Ordered guaiFENesin 400 mg oral tablet 1 tabs, Oral, BID, 0 Refill(s) Start Date: 04/15/14 Status: Ordered ICaps MV 1 tabs, Oral, Daily, 0 Refill(s) Start Date: 09/24/13 Status: Ordered latanoprost ophthalmic 1 drops, Eye-Both, Bedtime (once a day), 0 Refill(s) Start Date: 01/16/14 Status: Ordered loratadine 10 mg, Oral, Daily, 0 Refill(s) Start Date: 09/24/13 Status: Ordered magnesium oxide 250 mg oral tablet 1 tabs, Oral, Daily, 0 Refill(s) Start Date: 01/04/14 Status: Ordered meclizine 25 mg oral tablet See Instructions, TAKE 1 TABLET BY MOUTH THREE TIMES DAILY NEEDED FOR DIZZINESS, # 100 tabs, 3 Refill(s), LIZZY, eRx: [facility] [id number], TAKE 1 TABLET BY MOUTH THREE TIMES DAILY NEEDED FOR DIZZINESS Special Instructions: TAKE 1 TABLET BY MOUTH THREE TIMES DAILY NEEDED FOR DIZZINESS Start Date: 03/11/14 Status: Ordered metoprolol tartrate 12.5 mg tab 1 tabs, Oral, BID, 0 Refill(s) Start Date: 06/10/14 Status: Ordered MiraLax 17 g, Oral, Daily, 0 Refill(s) Start Date: 04/15/14 Status: Ordered [place] 5 mg-325 mg oral tablet 1 tabs, Oral, q4hr, as needed for pain, # 60 tabs, 0 Refill(s) Start Date: 04/16/14 Status: Ordered omeprazole 40 mg oral delayed release capsule See Instructions, TAKE 1 CAPSULE (40MG) BY ORAL ROUTE EVERY DAY AT BEDTIME, # 30 unknown unit, 5 Refill(s), eRx: [facility] [id number], TAKE 1 CAPSULE ( 40MG) BY ORAL ROUTE EVERY DAY AT BEDTIME Special Instructions: TAKE 1 CAPSULE (40MG) BY ORAL ROUTE EVERY DAY AT BEDTIME Start Date: 03/11/14 Status: Ordered Poly Iron 150 Forte oral capsule See Instructions, TAKE 1 CAPSULE BY ORAL ROUTE 2 TIMES EVERY DAY, # 60 unknown unit, 1 Refill(s), eRx: [facility] [id number], TAKE 1 CAPSULE BY ORAL ROUTE 2 TIMES EVERY DAY Special Instructions: TAKE 1 CAPSULE BY ORAL ROUTE 2 TIMES EVERY DAY Start Date: 04/08/14 Status: Ordered potassium chloride 10 mEq oral capsule, extended release See Instructions, TAKE 1 CAPSULE (10MEQ) BY ORAL ROUTE 2 TIMES EVERY DAY WITH FOOD, # 60 unknown unit, 2 Refill(s), eRx: [facility] , TAKE 1 CAPSULE (10MEQ) BY ORAL ROUTE 2 TIMES EVERY DAY WITH FOOD Special Instructions: TAKE 1 CAPSULE (10MEQ) BY ORAL ROUTE 2 TIMES EVERY DAY WITH FOOD Start Date: 01/28/14 Status: Ordered ProAir HFA 90 mcg/inh inhalation aerosol 2 puffs, Inhalation, QID, as needed for wheezing, 0 Refill(s) Start Date: 01/16/14 Status: Ordered Red Yeast Rice 600 mg oral capsule 4 caps, Oral, Daily, 0 Refill(s) Start Date: 09/24/13 Status: Ordered Simply Saline 0.9% nasal spray 1 sprays, Nasal, q30min, as needed for dry nasal passages, # 45 mL, 0 Refill(s) Start Date: 04/15/14 Status: Ordered Symbicort 160 mcg-4.5 mcg/inh inhalation aerosol See Instructions, INHALE 2 PUFF BY INHALATION ROUTE 2 TIMES EVERY DAY, # 1 unknown unit, 1 Refill(s), eRx: [facility] [id number], INHALE 2 PUFF BY INHALATION ROUTE 2 TIMES EVERY DAY Special Instructions: INHALE 2 PUFF BY INHALATION ROUTE 2 TIMES EVERY DAY Start Date: 10/23/13 Status: Ordered tolterodine 4 mg oral capsule, extended release See Instructions, TAKE 1 CAPSULE BY MOUTH EVERY DAY, # 30 caps, 4 Refill(s), ILZZY , eRx: [facility] [id number], TAKE 1 CAPSULE BY MOUTH EVERY DAY Special Instructions: TAKE 1 CAPSULE BY MOUTH EVERY DAY Start Date: 04/12/14 Status: Ordered Results No data available for this section Immunizations Vaccine Date Refusal Reason influenza virus vaccine, inactivated 01/11/14 influenza virus vaccine, live 03/20/13 pneumococcal 23-polyvalent vaccine 01/02/14 zoster vaccine live 12/15/12 Procedures Procedure Date Related Diagnosis Body Site Eye examination 2012 Social History Social History Type Response Smoking Status Never smoker Assessment and Plan Extracted from: Title: Office Visit Note Author: Roldan Alejandre MD Date: 06/10/14 Assessment/Plan Obstructive sleep apnea, adult Assessment: The patient has an obsolete CPAP machine that has no humidifier and the should be replaced. It is fairly likely that she requires a higher pressure, as pressure needs often go up with age. She has some sleep onset insomnia issues that are multifactorial. An effective CPAP pressure and mask may help. Plan: We talked about the pros and cons of repeating a sleep study. We could titrate her pressure and troubleshoot mask issues, finding her mask a that works. That would be difficult to do. The other option, which is chosen , is to start with an auto titrating CPAP unit. That will be set at 5-14 cm. And order is sent with the patient today to her nursing facility,[facility]. She needs to be fitted for a mask. She needs a local home care company to provide supplies, and I am sure the longterm has a contract with someone. She will return here in 2 months, sooner if necessary. Referrals to Other Providers Referred by: Roldan Alejandre MD
--- OUTSIDE RECORDS SUMMARY | 2016-07-09 12:04 | XMS REPORT | Continuity of Care Document ---
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 Name Role Phone Juan Maria PP Unavailable Payers Payer name Insurance type Covered republican ID Authorization(s) Unknown Problems Condition Effective Dates (start - stop) Clinical Status Hypertension, Benign - *Chronic CAD, Unspecified - *Chronic COPD - *Chronic RESTLESS LEGS SYNDROME - *Chronic Headache - *Chronic Influenza Vaccine - COPD - *Chronic CAD, Unspecified - *Chronic RESTLESS LEGS SYNDROME - *Chronic Hypertension, Benign - *Chronic Celiac disease - *Chronic NEED FOR PROPHYLACTIC VACCINATION AND INOCULATION, OTHER VIRAL DISEASES - CAD, Unspecified - *Chronic Hypertension, Benign - *Chronic RESTLESS LEGS SYNDROME - *Chronic COPD - *Chronic CAD, Unspecified - Chronic Hypertension, Benign - Chronic RESTLESS LEGS SYNDROME - Chronic COPD - Chronic Headache - *Acute COPD - Chronic Family History Family Member Diagnosis Age At Onset Status Unknown Social History Social History Element Description Quantity Unknown Allergies, Adverse Reactions, Alerts Substance Reaction Severity Status CEPHALEXIN MONOHYDRATE Unknown PENICILLINS Unknown Medications Medication Instructions Dosage Effective Dates (start - stop) Status meclizine 25 mg tablet take 1 tablet (25MG) by oral route 3 times every day as needed for dizziness 25 MG - Active omeprazole 40 mg capsule,delayed release take 1 capsule (40MG) by oral route every day at bedtime 40 MG - Active Test daily fasting or 2 hours after meals 250.00 - Active Celebrex 200 mg capsule take 1 capsule (200MG) by oral route every day as needed 200 MG - Active Symbicort 160 mcg-4.5 mcg/actuation HFA aerosol inhaler inhale 2 puff by inhalation route 2 times every day 0 - Active albuterol sulfate HFA 90 mcg/actuation aerosol inhaler inhale 2 puff by inhalation route every 4 - 6 hours as needed 0 - Active ipratropium-albuterol 0.5 mg-3 mg(2.5 mg base)/3 mL nebulization soln inhale 3 milliliter by nebulization route q 4 hrs prn - Active aspirin, buffered 81 mg tablet 1 t, po, qd - Active docusate sodium 100 mg capsule take 1 capsule (100MG) by oral route every day at bedtime as needed 100 MG - Active red yeast rice 600 mg capsule 4 c, po, qd - Active loratadine 10 mg tablet take 1 tablet (10MG) by oral route every day as needed as needed 10 MG - Active Calcium 600 600 mg (1,500 mg) tablet take 1 by Oral route every day 0 - Active magnesium 100 mg capsule 1 c, po, tid - Active MUCINEX (unknown strength) take 1 Tablet by oral route every 12 hours - Active fish oil-fat acid comb8-herb [id number] 1,200 mg (400 [id number]) cap 4 c, po , qd - Active I-Caps 280 mg-10 mg-2 mg capsule 1 c, po, qd - Active Vitamin B-12 ER 1,000 mcg tablet,extended release 1 t, po, qd - Active Miralax 17 gram/dose oral powder take (17G) by oral route every day mixed with 8 oz. water, juice, soda, coffee or tea 17 G - Active Tylenol Ex Str Arthritis Pain 500 mg tablet take 2 tablet (1000MG) by oral route every 8 hours as needed as needed 1000 MG - Active potassium chloride ER 10 mEq capsule,extended release take 1 capsule (10MEQ) by oral route 2 times every day with food 10 MEQ - Active latanoprost 0.005 % eye drops instill 1 drop by ophthalmic route every day into affected eye(s) in the evening 0 - Active Accu-Chek Janina Plus Meter Test daily fasting or 2 hours after meals dx 250.00 - Active Accu-Chek Janina strips Test daily fasting or 2 hours after meals dx 250.00 - Active Poly-Iron 150 Forte 150 mg-25 mcg-1 mg capsule take 1 capsule by oral route 2 times every day 0 - Active gabapentin 300 mg capsule take 2 Capsule (600MG) by oral route every day at HS 600 MG - Active tramadol 50 mg tablet take 1 - 2 Tablet (50MG) by oral route every 6 hours as needed 50 MG - Active Detrol LA 4 mg capsule,extended release take 1 capsule (4MG) by oral route every day 4 MG - Active enalapril maleate 10 mg tablet take 1.5 Tablet (15MG) by oral route every day 15 MG - Active furosemide 40 mg tablet take 1 Tablet (40MG) by oral route every day Apr - Active Immunizations Vaccine Date Status Comments Flu (split) (3 yrs or older) completed Zoster completed Results Test Name Date and Time Measure Units Reference Range Abnormal Flag Comments Unknown Vital Signs Date / Time: Height Weight Pulse Rate Blood Pressure Temperature /09:00:00 63.00 in 177.00 lbs 72 /min 122/72 mm[Hg] 96.4 F Procedures Procedure Date FLU VACCINE,>/=3 YRS, IM ADMINISTRATION OF FLU SHOT Encounters Encounter Location Date Patient Visit [facility] Patient Visit [facility] Patient Visit [facility] Patient Visit [facility] Patient Visit [facility] Patient Visit [facility] Patient Visit [facility] Patient Visit [facility] Patient Visit [facility] Advance Directives Directive Effective Date Unknown
--- OUTSIDE RECORDS SUMMARY | 2016-07-09 12:05 | XMS REPORT | Referral Summary ---
Author Organization Unknown Address Unknown Phone Unavailable Care Team Providers Care Skiff Operator Name Role Phone Andrey Maria Primary Care Physician [phone] Encounter VC Date(s): 05/21/14 - 05/21/14 [facility], [place], Family [address] [place] [address] Discharge Diagnosis: Arthritis Discharge Diagnosis: Diabetes Discharge Diagnosis: Afib Discharge Diagnosis: CHF (congestive heart failure) Discharge Diagnosis: Chronic airway obstruction Discharge Diagnosis: Benign essential hypertension Discharge Disposition: Home or Self Care Attending Physician: Juan Maria MD Admitting Physician: Juan Maria MD Vital Signs Most recent to 1 oldest [Reference Range]: Temperature Tympanic 36.0 degC [36.6-38.1 degC] *LOW* (05/21/14 9:34 AM) Peripheral Pulse 88 bpm Rate [60-100 bpm] (05/21/14 9:34 AM) Respiratory Rate 18 br/min [14-20 br/min] (05/21/14 9:34 AM) Blood Pressure 152/84 mmHg [90-140/60-90 mmHg] *HI* (05/21/14 9:34 AM) Problem List Condition Effective Dates Status [...] Active ed) Insomnia(Confirmed) Active Migraine Active headache(Confirmed) Overweight(Confirmed Active ) Pneumonia(Confirmed) Active Psoriasis(Confirmed) Active [...] BID, # 60 tabs, 2 Refill(s), Pharmacy: [facility] [place] [id number] , 1 tabs Oral BID Start Date: 01/30/14 Status: Ordered Fish Oil 1200 mg oral capsule 1 caps, Oral, BID, 0 Refill(s) Start Date: 09/24/13 Status: Ordered furosemide 40 mg oral tablet See Instructions, TAKE 1 TABLET (40MG) BY ORAL ROUTE EVERY DAY, # 30 unknown unit, 2 Refill(s), eRx: [facility] [place] [id number], TAKE 1 TABLET (40MG) BY ORAL ROUTE [...] # 100 tabs, 3 Refill(s), LIZZY, eRx: [facility] [place] [id number], TAKE 1 TABLET BY MOUTH THREE TIMES DAILY NEEDED FOR DIZZINESS Special Instructions: TAKE 1 TABLET BY MOUTH THREE TIMES DAILY NEEDED FOR DIZZINESS Start Date: 03/11/14 Status: Ordered MiraLax 17 g, Oral, Daily, 0 Refill(s) Start Date: 04/15/14 Status: Ordered [place] 5 mg-325 mg oral tablet 1 tabs, Oral, q4hr, as needed for pain, # 60 tabs, 0 Refill(s) Start Date: 04/16/14 Status: Ordered omeprazole 40 mg oral delayed release capsule See Instructions, TAKE 1 CAPSULE (40MG) BY ORAL ROUTE EVERY DAY AT BEDTIME, # 30 unknown unit, 5 Refill(s), eRx: [facility] [place] [address], TAKE 1 CAPSULE ( 40MG) BY ORAL ROUTE EVERY DAY AT BEDTIME Special Instructions: TAKE 1 CAPSULE (40MG) BY ORAL ROUTE EVERY DAY AT BEDTIME Start Date: 03/11/14 Status: Ordered Poly Iron 150 Forte oral capsule See Instructions, TAKE 1 CAPSULE BY ORAL ROUTE 2 TIMES EVERY DAY, # 60 unknown unit, 1 Refill(s), eRx: [facility] [place] [id number], TAKE 1 CAPSULE BY ORAL ROUTE 2 TIMES EVERY DAY Special Instructions: TAKE 1 CAPSULE BY ORAL ROUTE 2 TIMES EVERY DAY Start Date: 04/08/14 Status: Ordered potassium chloride 10 mEq oral capsule, extended release See Instructions, TAKE 1 CAPSULE (10MEQ) BY ORAL ROUTE 2 TIMES EVERY DAY WITH FOOD, # 60 unknown unit, 2 Refill(s), eRx: [facility] [id number], TAKE 1 CAPSULE (10MEQ) BY ORAL ROUTE [...] # 1 unknown unit, 1 Refill(s), eRx: [facility] [place] [address], INHALE 2 PUFF BY INHALATION ROUTE 2 TIMES EVERY DAY Special Instructions: INHALE 2 PUFF BY INHALATION ROUTE 2 TIMES EVERY DAY Start Date: 10/23/13 Status: Ordered tolterodine 4 mg oral capsule, extended release See Instructions, TAKE 1 CAPSULE BY MOUTH EVERY DAY, # 30 caps, 4 Refill(s), LIZZY , eRx: [facility] [id number], TAKE 1 CAPSULE BY MOUTH EVERY DAY [...] Extracted from: Title: Office Visit Note Author: Juan Maria MD Date: 05/21/14 Assessment/Plan Afib Chronic stable rate controlled. Continue current treatment without change. Ordered: Office Visit Level 4 Est 38140 Arthritis Stable overall seems to be doing fine. No new change in treatment. Ordered: Office Visit Level 4 Est 52351 Benign essential hypertension Blood pressure is well-controlled continue current treatment plan without change. Ordered: Office Visit Level 4 Est 90557 CHF (congestive heart failure) Heart failure appears to be well compensated no change in current treatment plan recommended. Ordered: Office Visit Level 4 Est 33517 Chronic airway obstruction Stable no change in current treatment plan. Ordered: Office Visit Level 4 Est 38497 Diabetes Glucometer readings reviewed overall appears stable no change in current treatment plan. Ordered: Office Visit Level 4 Est 62969 Generalized weakness this is related to her recent hospital stay along with her chronic medical problems. Overall appears to be improving some although we may be reaching a plateau. There some question as to whether she will be safe back at home. Family is considering various options. We talked about assisted living versus living at home with assistance versus penitentiary care. All these are under consideration this time. His decisions are being made if I can be helpful the family will let me know."
--- OUTSIDE RECORDS SUMMARY | 2016-07-09 12:05 | XMS REPORT | Referral Summary ---
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 Name Role Phone Andrey Maria Primary Care Physician [phone] Encounter VC Date(s): 11/24/14 - 11/24/14 [facility] [address] [place] [address] [place] [address]- Discharge Disposition: 01-Home or Self Care Attending Physician: Barrera Banks MD Admitting Physician: Barrera Banks MD Vital Signs No data available for [...] BID, # 60 tabs, 2 Refill(s), [facility] , 1 tabs Oral BID Start Date: [...] 0 Refill(s) Start Date: 04/15/14 Status: Ordered [place] 5 mg-325 mg oral tablet 1 tabs, [...] # 60 unknown unit, 2 Refill(s), eRx: [facility] [address], TAKE 1 CAPSULE (10MEQ) BY ORAL ROUTE 2 TIMES EVERY DAY WITH FOOD Start Date: 01/28/14 Status: Ordered ProAir HFA 90 mcg/inh inhalation aerosol 2 puffs, Inhalation, q4hr, as needed for wheezing, 0 Refill(s) Start Date: 01/16/14 Status: Ordered Symbicort 160 mcg-4.5 mcg/inh inhalation aerosol 2 puffs, Inhalation, BID, To replace Advair (non-formulary [employer]). [facility] # 1 Each, 3 Refill(s), Pharmacy: [facility] Start Date: 04/29/15 Status: Ordered tolterodine 2 mg oral capsule, extended release 2 mg 1 caps, Oral, Daily, # 90 caps, 0 Refill(s) Start Date: 02/18/15 Status: Ordered traMADol 50 mg oral tablet 50 mg 1 tabs, Oral, q8hr, katelin, # 31 tabs, 3 Refill(s) Start Date: [...]
--- OUTSIDE RECORDS SUMMARY | 2016-07-09 12:05 | XMS REPORT | Continuity of Care Document ---
Author Author [facility] Organization [facility] Address Unknown Phone Unavailable Support Name Relationship Address Phone MAGNUS BACK MD Caregiver [address] [place] [address] DR [place] [phone] ОЛЬГА JOHNSON FACS, MD Caregiver [address] [place] [address] [address] [place] [phone] PEDRO LIU MD Caregiver [address] [place] [address] [place] [phone] EDUARD CLARK MD Caregiver [address] [place] [address] [place] [phone] DARLEEN LAWTON Next Of Kin [address] [place] [address] Insurance Providers Payer Name Policy Number Subscriber Name Relationship Medicare [id number] Aurelia Duran 16 Self [facility] [id number] Aurelia Duran 16 Self Advance Directives Directive Response Recorded Date/Time Advanced Directives Type Living Will 10/13/13 1:33pm Ordered Resuscitation Status Full Code 04/02/14 2:49pm Resuscitation Documents on File No 04/02/14 10:06am Chief Complaint and Reason for Visit Chief Complaint DIVERTICULITIS W/MICROPERFORATION,FALL, LBP, FIBFX Reason for Visit Diabetes Urge incontinence History of cirrhosis Bradycardia Diverticulitis of large intestine with perforation Closed rib fracture Dyslipidemia History of RI (myocardial infarction) Allergic rhinitis Osteoarthritis Back pain Respiratory insufficiency Syncope Injury of jaw Low back pain Diverticulitis of large intestine with perforation Fall Problems Medical Problems Problem Onset Date Status [...] Depression Unknown Active History of cirrhosis Unknown Active Dyspnea on exertion Unknown Active COPD exacerbation Unknown Active Chest pain on exertion Unknown Active Pneumonia Unknown Active Dyspnea on exertion Unknown Active Diastolic CHF, chronic Unknown Active Obesity (BMI 30.0-34.9) Unknown Active Chest pain as manifestation of blood transfusion reaction Unknown Active HTN (hypertension) Unknown Active Elevated serum creatinine Unknown Active Hyponatremia Unknown Active Bradycardia Unknown Resolved Diverticulitis of large intestine with perforation Unknown Active Closed rib fracture ~04/02/2014 Active Dyslipidemia Unknown Active History of RI (myocardial infarction) Unknown Active Allergic rhinitis Unknown Active Osteoarthritis Unknown Active Back pain Unknown Active Respiratory insufficiency Unknown Resolved Syncope Unknown Resolved Injury of jaw Unknown Resolved Low back pain Unknown Active Diverticulitis of large intestine with perforation Unknown Active Fall Unknown Active Medications Medication Dose Route Sig [...] PO TWICE A DAY 08/05/13 Active Fish Oil/Florence-3 Fatty Acids 1 Cap PO TWICE A [...] A DAY 02/19/14 Active Sodium Chloride 1 Redmon NS NEEDED 02/19/14 Active Clopidogrel Bisulfate 75 Mg PO DAILY 30 Qty 02/19/14 Active Metronidazole 500 Mg PO EVERY 12 HOURS 10 Days 04/11/14 Active Hydrocodone/Acetaminophen 1 Tab PO Q4H PRN PAIN 30 Qty 04/11/14 Active Ciprofloxacin HCl 500 Mg PO EVERY 12 HOURS 10 Days 04/11/14 Active Polyethylene Glycol 3350 1 Packet PO DAILY 30 Days 04/11/14 Active Social History Social History Problem Response Recorded Date/Time Hx Substance Use No 04/02/2014 7:27am Hx Alcohol Use No 04/02/2014 7:27am Has the pt used tobacco in the last 12 months No 04/02/2014 9:57am Tobacco Usage none 04/02/2014 2:49pm Query Response Start Date Stop Date Smoking Status Unknown if ever smoked Hospital Discharge Instructions Instructions: Care Instructions: Reason for Hospitalization: diverticulitis with perforation I was in the hospital because (patient own words): "I FELL AND THE DR SAID I HAVE DIVERTICULITIS" Discharge Diet: regular Discharge Activity: as tolerated Follow Up Appointments: see Dr Johnson in one week for followup, pt to make appointment Patient Instructions: should your symptoms return you could contact Dr Johnson or your PCP through the office or return to the ED for emergent evaluation Condition at time of discharge: Good See Maternal Child dismissal instructions General Information: See Maternal Child dismissal instructions Condition at time of discharge: Good - You develop redness, swelling, increasing pain, excessive bleeding, or excessive/foul smelling drainage at your incision site. - You have difficulty breathing. During office hours, call [phone]. After hours, please call [facility] at [phone] and have the impact hammer operator page Dr. Pretty or the covering surgeon. *In the event of an emergency, seek medical care at the nearest emergency room.* Condition at time of discharge: Good Plan of Care Discharge Date 04/11/14 4:35pm Disposition 06 HOME HEALTH SERVICE Instructions/Education Provided [facility] Congestive Heart Failure DI for Diverticulitis Prescriptions See Medications Section Functional Status Query Response Date Recorded Physical Hygiene Self April 11, 2014 2:37pm Disabilities Visual April 11, 2014 2:37pm Devices Used Glasses Walker April 11, 2014 2:37pm Dressing Self April 11, 2014 2:37pm Ambulation Self April 11, 2014 2:37pm Diet Self April 11, 2014 2:37pm Mental Status Alert October 13, 2013 4:56pm Disabilities Visual April 11, 2014 2:37pm Devices Used Glasses Walker April 11, 2014 2:37pm Physical Hygiene Self April 11, 2014 2:37pm Dressing Self April 11, 2014 2:37pm Ambulation Self April 11, 2014 2:37pm Diet Self April 11, 2014 2:37pm Allergies, Adverse Reactions, Alerts Allergen Type Severity Reaction Status Last Updated iodine Allergy Unknown Active 04/02/14 Penicillin Allergy Unknown Active 04/02/14 Cephalexin Allergy Intermediate Active 04/02/14 Immunizations Name Given Type Hx Influenza Vaccination Y JANUARY 2014 Historical Hx Pneumococcal Vaccination Y GIVEN 01/02/14 AT [facility] Historical Hx Tetanus, Diptheria, Pertussis N UNKNOWN Historical Hx Influenza Vaccination Y JANUARY 2014 Historical Hx Tetanus Diptheria N UNKNOWN Historical Hx Tetanus, Diptheria, Pertussis N UNKNOWN Historical Hx Tetanus Toxoid Vaccination N UNKNOWN Historical Vital Signs Acute Vital Signs Vital Response Date/Time Temperature (Fahrenheit) 96.7 deg F (96.8 - 99.1) Temperature (Calculated Celsius) 35.47959 degrees C (36.0 - 37.3) Temperature Source Oral Pulse Rate (adult) 84 bpm (60 - 100) Respiratory Rate 12 breaths/min (10 - 20) O2 Sat by Pulse Oximetry 90 % (90 - 100) Oxygen Delivery Method Room Air Blood Pressure 137/66 mm Hg Blood Pressure Source Automatic Cuff Height 5 ft 3 in Weight 181 lb Body Mass Index 32.0 kg/m^2 Results Test Source Date Result Interp. Ref. Range Comments Activated Partial Thromboplast Time January 08, 2014 12:24pm 32.6 SEC N 24-36 Alanine Aminotransferase (ALT/SGPT) April 08, 2014 4:37am 24 U/L N 9- 52 Albumin April 08, 2014 4:37am 3.2 G/DL L 3.5-5.0 Albumin/Globulin Ratio April 08, 2014 4:37am 1.2 RATIO N 1.1-2.2 Alkaline Phosphatase April 08, 2014 4:37am 51 U/L N 38-126 Amylase Level January 08, 2014 12:24pm 81 U/L N 30-110 Anion Gap April 10, 2014 5:05am 6 MEQ/L N 5-15 Anisocytosis April 08, 2014 4:37am 1+ - Aspartate Amino Transf (AST/SGOT) April 08, 2014 4:37am 20 U/L N 14- 36 BUN/Creatinine Ratio April 10, 2014 5:05am 16 RATIO N 6-26 Band Neutrophils # April 08, 2014 4:37am 0.2 T/MM3 - Band Neutrophils % April 08, 2014 4:37am 4.0 % N 0-6 Basophils # (Auto) April 10, 2014 5:05am 0.1 T/MM3 N 0-0.2 Basophils (%) (Auto) April 10, 2014 5:05am 2.1 % H 0-2 Blood Urea Nitrogen April 10, 2014 5:05am 17.0 MG/DL N 7-17 C-Reactive Protein August 05, 2013 1:19pm 14.3 MG/L H 0-9 Calcium Level April 10, 2014 5:05am 9.0 MG/DL N 8.4-10.2 Calculated Osmolality April 10, 2014 5:05am 273 MOSM/KG N 261-280 Carbon Dioxide Level April 10, 2014 5:05am 34 MEQ/L H 22-30 Chemistry Specimen Hemolysis April 10, 2014 5:05am < 15 0-25 0-25 : No Hemolysis.26-70: Slight Hemolysis - can falsely elevate K and Urine Protein. 71-285: Moderate Hemolysis - can falsely elevate K, Troponin I, CA 19-9, PTH, CSF GLucose, and Urine Protein, and can falsely decrease Phenytoin. 286-999: Gross Hemolysis - can falsely elevate K, Troponin I, CA 19-9, PTH, CSF Glucose, and Urine Protine, and can falsely decrease Phenytoin. Recommend specimen recollection. Chloride Level April 10, 2014 5:05am 101 MEQ/L N 98-107 Creatinine April 10, 2014 5:05am 1.1 MG/DL N 0.7-1.2 Eosinophils # (Auto) April 10, 2014 5:05am 0.3 T/MM3 N 0-0.5 Eosinophils # (Manual) February 19, 2014 6:29am 0.1 T/MM3 N 0-0.5 COMMENT WILL CALL LAB WHEN NEEDED Eosinophils % (Manual) February 19, 2014 6:29am 1.0 % N 0-4 COMMENT WILL CALL LAB WHEN NEEDED Eosinophils (%) (Auto) April 10, 2014 5:05am 5.5 % H 0-4 Erythrocyte Sedimentation Rate August 05, 2013 1:19pm 17 MM/HR N 0-20 Globulin April 08, 2014 4:37am 2.6 G/DL N 2.4-3.6 Glomerular Filtration Rate Calc April 10, 2014 5:05am 47 - Glucometer April 11, 2014 6:15am 129 mg/dL H 65-110 Glucose Level April 10, 2014 5:05am 101 MG/DL N 65-110 Hematocrit April 10, 2014 5:05am 37.1 % N 36-46 Hemoglobin April 10, 2014 5:05am 11.9 GM/DL L 12-16 Hemoglobin A1c April 02, 2014 8:46am 6.0 % N 6-7 <6.0 NON-DIABETIC RANGE6.0-7.0 ADA THERAPEUTIC RANGE >7.0 ACTION SUGGESTED Icterus Index April 10, 2014 5:05am < 2 0-7 Immature Granulocyte # (Auto) April 10, 2014 5:05am 0.01 T/MM3 N 0.00 -0.03 Immature Granulocyte % (Auto) April 10, 2014 5:05am 0.2 % N 0.0-0.5 Lab Scanned Report January 01, 2014 9:21pm LAB TEST FORM REQUEST [id number] - Large Platelets April 08, 2014 4:37am Few - Lipase January 08, 2014 12:24pm 136 U/L N 23-300 Lymphocytes # (Auto) April 10, 2014 5:05am 1.2 T/MM3 N 1-4.8 Lymphocytes # (Manual) April 08, 2014 4:37am 1.1 T/MM3 N 1-4.8 Lymphocytes % (Manual) April 08, 2014 4:37am 19.0 % L 23-45 Lymphocytes (%) (Auto) April 10, 2014 5:05am 25.8 % N 23-45 Magnesium Level April 02, 2014 8:46am 2.4 MG/DL H 1.6-2.3 COMMENT may use blood in lab Mean Corpuscular Hemoglobin April 10, 2014 5:05am 29.8 UUG N 26-34 Mean Corpuscular Hemoglobin Concent April 10, 2014 5:05am 32.1 GM/DL N 31-37 Mean Corpuscular Volume April 10, 2014 5:05am 92.8 UM3 N 80-100 Mean Platelet Volume April 10, 2014 5:05am 11.5 UM3 N 9.4-12.4 Monocytes # (Auto) April 10, 2014 5:05am 0.6 T/MM3 N 0-0.8 Monocytes # (Manual) April 08, 2014 4:37am 1.1 T/MM3 H 0-0.8 Monocytes % (Manual) April 08, 2014 4:37am 18.0 % H 0-9.0 Monocytes (%) (Auto) April 10, 2014 5:05am 13.4 % H 0-9.0 UJ-Uyl-U-Type Natriuretic Peptide April 02, 2014 8:46am 438 PG/ML H 0 -175 Rule in cut points: <50 years old=450; 50-75 years old=900; >75 years old=1800; When utilizing ProBNP rule-in cut points, adjustment for impaired renal function is typically not required. Neutrophils # (Auto) April 10, 2014 5:05am 2.5 T/MM3 N 1.8-7.7 Neutrophils # (Manual) April 08, 2014 4:37am 3.5 T/MM3 N 1.8-7.7 Neutrophils % (Manual) April 08, 2014 4:37am 59.0 % N 33-66 Neutrophils (%) (Auto) April 10, 2014 5:05am 53.0 % N 33-66 Platelet Count April 10, 2014 5:05am 179 T/MM3 N 130-400 Potassium Level April 10, 2014 5:05am 3.7 MEQ/L N 3.6-5 Prealbumin April 02, 2014 8:46am 24.5 MG/DL N 17.6-36.0 COMMENT may use blood [...] -3.50 FOR IMPLANTED VALVE RDW Standard Deviation April 10, 2014 5:05am 50.8 FL H 36.9-50.2 Red Blood Count April 10, 2014 5:05am 4.00 M/MM3 N 4.00-5.20 Sodium Level April 10, 2014 5:05am 141 MEQ/L N 134-144 Thyroid Stimulating Hormone (TSH) April 02, 2014 8:46am 1.39 MIU/L N 0.47-4.68 COMMENT may use blood in lab Total Bilirubin April 08, 2014 4:37am 0.50 MG/DL N 0.20-1.30 Total Protein April 08, 2014 4:37am 5.8 G/DL L 6.3-8.2 Troponin I April 02, 2014 8:46am < 0.012 ng/ml 0-0.12 COMMENT may use blood in lab Turbidity April 10, 2014 5:05am < 20 0-20 Urinalysis Comment April 02, 2014 9:05am Microscopic not ind. - Has specimen been collected/obtained? Y Urine Bacteria January 08, 2014 3:05pm Trace H - Has specimen been collected/obtained? Y Urine Bilirubin April 02, 2014 9:05am Negative - Has specimen been collected/obtained? Y Urine Blood April 02, 2014 9:05am Negative - Has specimen been collected/obtained? Y Urine Collection Type April 02, 2014 9:05am Straight cath - Has specimen been collected/obtained? Y Urine Color April 02, 2014 9:05am Yellow - Has specimen been collected/obtained? Y Urine Glucose (UA) April 02, 2014 9:05am Negative - Has specimen been collected/obtained? Y Urine Ketones April 02, 2014 9:05am Negative - Has specimen been collected/obtained? Y Urine Leukocyte Esterase April 02, 2014 9:05am Negative - Has specimen been collected/obtained? Y Urine Nitrite April 02, 2014 9:05am Negative - Has specimen been collected/obtained? Y Urine Protein April 02, 2014 9:05am Negative - Has specimen been collected/obtained? Y Urine RBC January 08, 2014 3:05pm Trace /HPF - Has specimen been collected/obtained? Y Urine Specific [place] April 02, 2014 9:05am 1.010 L - Has specimen been collected/obtained? Y Urine Squamous Epithelial Cells January 08, 2014 3:05pm 0-5 - Has specimen been collected/obtained? Y Urine Turbidity April 02, 2014 9:05am Clear - Has specimen been collected/obtained? Y Urine Urobilinogen April 02, 2014 9:05am 0.2 EU/DL - Has specimen been collected/obtained? Y Urine WBC January 08, 2014 3:05pm 3-5 /HPF - Has specimen been collected/obtained? Y Urine pH April 02, 2014 9:05am 7.0 - Has specimen been collected/ obtained? Y Venous Blood Lactate January 08, 2014 1:17pm 2.0 MMOL/L N 0.6-2.2 Vitamin B12 Level April 02, 2014 8:46am 810 PG/ML N 239-931 COMMENT may use blood in lab White Blood Count April 10, 2014 5:05am 4.7 T/MM3 N 4.5-11.0 Blood Culture Blood January 08, 2014 1:17pm NO GROWTH AFTER 5 DAYS Name: AURELIA DURAN Unit #: [id number] : 1930 Sex: F DISCHARGE SUMMARY Admit Date: 04/02/14 Report #: [id number] General Date Date DATE: 04/11/14 TIME: 14:18 Attending Physician Magnus Back MD Admitting Physician Magnus Back MD Consulting Physician [facility] Dr Johnson Admitting Diagnosis (1) Syncope Status: Acute (2) Diverticulitis of large intestine with perforation Status: Acute (3) Respiratory insufficiency Status: Acute Assessment & Plan: present on admission (4) Closed rib fracture Onset Date: ~ 04/02/2014 Status: Acute Assessment & Plan: [id number] rib (5) Bradycardia Status: Acute Assessment & Plan: present on admission; heart rate 51 (6) Injury of jaw Status: Acute (7) Back pain Status: Acute Assessment & Plan: acute on chronic (8) Asthma with COPD Status: Acute (9) Diastolic CHF, chronic Status: Chronic Assessment & Plan: Echo 01/02/14: EF 60%; mild diastolic dysfunction; aortic stenosis; RVH with borderline pulmonary hypertension and mildly high central venous pressure. (10) HTN (hypertension) Status: Chronic (11) A-fib Status: Chronic (12) CAD (coronary artery disease) Status: Chronic (13) Sleep apnea Status: Chronic (14) Glaucoma Status: Chronic (15) GERD (gastroesophageal reflux disease) Status: Chronic (16) Depression Status: Chronic (17) Insomnia Status: Chronic (18) Obesity (BMI 30.0-34.9) Status: Chronic (19) History of cirrhosis Status: Chronic (20) Diabetes Status: Chronic (21) Urge incontinence Status: Chronic (22) History of RI (myocardial infarction) Status: Chronic (23) Dyslipidemia Status: Chronic (24) Allergic rhinitis Status: Chronic (25) Osteoarthritis Status: Chronic Discharge Diagnosis 1. Diverticulitis of large intestine with microperforation. 2. Syncope. 3. Acute respiratory insufficiency improving. 4. Closed rib fracture. 5. Bradycardia. 6. Injury to jaw. 7. Back pain. 8. COPD/asthma. 9. Chronic diastolic heart failure. 10. Chronic atrial fibrillation. 11. ASCAD. 12. Hypertension. 13. Obstructive sleep apnea. 14. Dyslipidemia. 15. GERD. 16. Glaucoma. 17. Depression. 18. Insomnia. 19. Allergic rhinitis. 20. Obesity with BMI 30.9. Procedures none Laboratory Laboratory Laboratory Tests Test 04/10/14 04/10/14 04/11/14 17:09 21:32 06:15 Glucometer 200 mg/dL 144 mg/dL 129 mg/dL History of Present Illness Aurelia Duran is a very pleasant 84 year old female who presented to [facility] ED today, 04/02/14, via EMS for severe low back pain after falling at home. She reports that she remembers going to bed last night and then woke up this morning on the floor. She pushed her emergency button to alert EMS who responded and transported her to [facility] ED. Upon arrival to the ED she complained of severe mid low back pain with no numbness or tingling and reports that her pain today is different than her chronic back pain. She also reports left jaw pain with mild swelling and ecchymosis. She denies any recent illness but does admit to a recent dry cough but attributes it to no using her CPAP recently due to it needing to be repaired. She also reports shortness of breath but states that she is chronically short of breath but denies using oxygen at home. No known fevers, chills, nausea , vomiting, headache, dental injury, neck pain, chest pain, abdominal pain, diarrhea or blood in her stools. No headache or change in vision. In the ED, she was found to have a blood pressure 182 /79, heart rate 51, respiratory rate 18, temperature 97.2 and SAO2 93% on 1L NC. Labs were obtained and showed WBC 7.7, hemoglobin 13.4, platelets 204, sodium 144, potassium 4.0, BUN 20, SCr 1.1 and glucose 116. UA was unremarkable. CT head showed no acute abnormalities. CT C-spine showed no fracture or acute abnormalities. CT L-spine showed no fracture or cord compression; old hardware intact; acute sigmoid diverticulitis with evidence of microperforation ; left 12th rib fracture. In the ED she was given morphine 2mg once which helped with her back pain. Due to diverticulitis with microperforation and syncope, Dr. Back was contacted and she was admitted into inpatient status for further evaluation, IV antibiotics, IV fluids, close monitoring with continuous pulse oximetry and telemetry and surgical consult to Dr. Johnson. Her length of stay is expected to exceed more than 2 overnights. Hospital Course 04/11/14 Pt has had 2 bowel movements overnight, she is going to go and stay with her grand daughter overnight the first night. Pt is instructed to call [facility] and notify them of her plans. She should followup with Dr Johnson in 1-2 weeks. Should her symptoms return she could contact Dr Johnson or Dr Clark through the office or return to the ED for emergent evaluation. Time spent in discharge activity was 45 min 04/10 Pt was set up for home health services but expresses concerns regarding her bowels and is somewhat nervous going home alone the first night. Spoke with family and they will make arrangements to stay with her. Pt continues to decline SNU. Will motivate bowels. Anticipate discharge in the am 04/09: Continue treatment plan with Ciprio and Flagyl for antimicrobial coverage and low-flow IV fluids. Assess for possible discharge tomorrow, 04/10. CM assisting, switched to PO abx (cipro and flagyl). Weaned to RA with CPAP support overnight (baseline) 04/08 Continue Cipro and metronidazole for antimicrobial coverage. Continue low-flow IV fluids . Encourage activities Continue with supportive care. 04/06- Slowly improving. Tolerating PO well. Continue antibiotics, ADAT. Monitor for BM. Encourage activity as tolerated. Pain is controlled. Continue supportive meds for medical co-morbidities. 04/03 IV Flagyl Q 6 hours and Levaquin IV daily for antimicrobial coverage Bowel rest- NPO Appreciate Surgical consultation and expertise Monitor daily labs 04/02: Patient was admitted to inpatient status under the care of Dr. Back for syncope, back pain and sigmoid diverticulitis with perforation. Upon further review of her chart she was also found to be bradycardic which appears to be new from when she was admitted 12/2013 and had a heart rate in the 80 's at that time. Today she is in the upper 40's-50's. She is also found to have respiratory insufficiency requiring oxygen which she does not typically use. EKG, CXR and troponin pending. CT head and c-spine were unremarkable. CT lumbar showed sigmoid diverticulitis and left 12th rib fracture. She will be monitored on telemetry with continuos pulse oximetry and breathing treatments. Dr. Urias was consulted for surgical evaluation. Morphine for pain control and zofran as needed for nausea and vomiting. Radiology to review CT head and c- spine to evaluate for possible left jaw fracture (negative). Will continue home medications and provide oxygen to maintain SAO2 >90%. Will monitor blood sugars with AM labs and routine BGMs. Problems: (1) Diverticulitis of large intestine with perforation Status: Acute (2) Syncope Status: Resolved (3) Respiratory insufficiency Status: Resolved Assessment & Plan: present on admission (4) Closed rib fracture Onset Date: ~ 04/02/2014 Status: Acute Assessment & Plan: [id number] rib (5) Bradycardia Status: Resolved Assessment & Plan: present on admission; heart rate 51 (6) Injury of jaw Status: Resolved Assessment & Plan: CT of the mandible showed no sign of acute fracture. (7) Back pain Status: Acute Assessment & Plan: acute on chronic (8) Asthma with COPD Status: Acute (9) Diastolic CHF, chronic Status: Chronic Assessment & Plan: Echo 01/02/14: EF 60%; mild diastolic dysfunction; aortic stenosis; RVH with borderline pulmonary hypertension and mildly high central venous pressure. (10) HTN (hypertension) Status: Chronic (11) A-fib Status: Chronic (12) CAD (coronary artery disease) Status: Chronic (13) Sleep apnea Status: Chronic (14) GERD (gastroesophageal reflux disease) Status: Chronic (15) Depression Status: Chronic (16) Obesity (BMI 30.0-34.9) Status: Chronic (17) History of cirrhosis Status: Chronic (18) Diabetes Status: Chronic (19) History of RI (myocardial infarction) Status: Chronic (20) Dyslipidemia Status: Chronic DVT Prophylaxis: SCD'S GI Prophylaxis: Protonix Code Status Full Code Home Meds Active Scripts Polyethylene Glycol 3350 17 Gm Powd.pack1 Packet PO DAILY 30 Days Prov:OSCAR MCCORMICK DO 04/11/14 Ciprofloxacin HCl (Cipro)500 Mg [id number] Mg PO Q12HR 10 Days Prov:OSCAR MCCORMICK DO 04/11/14 Hydrocodone/Acetaminophen (Hydrocodon-Acetaminophen 5-325)1 Tab Tablet1 Tab PO Q4H PRN (PAIN) #30 TAB Prov:OSCAR MCCORMICK DO 04/11/14 Metronidazole (Flagyl)500 Mg [id number] Mg PO Q12HR 10 Days Prov:OSCAR MCCORMICK DO 04/11/14 Clopidogrel Bisulfate (Plavix)75 Mg Dpylvq37 Mg PO DAILY #30 Ref 11 Prov:LEVAR DE SANTIAGO MD 02/19/14 Potassium Chloride 20 Meq Tablet.er20 Meq PO BIDWM #0 TAB Take 1 tablet, by mouth, two times a day with meals. Prov:DASHA DE SANTIAGO MD 02/12/14 Enalapril Maleate 10 Mg Tablet1 Tab PO BID #60 TAB Prov:OSCAR MCCORMICK DO 01/03/14 Reported Medications Sodium Chloride (Saline Nasal Redmon)30 Ml Spray1 Redmon NS PRN 02/19/14 Guaifenesin 400 Mg Tablet1 Tab PO BID 02/19/14 Albuterol Sulfate (Proair Hfa)8.5 Gm Hfa.aer.ad2 Puff INH Q4-6H PRN (PRN ORDERS) 01/08/14 Meclizine HCl 25 Mg Tablet1 Tab PO TID PRN (DIZZINESS) 01/08/14 Latanoprost 2.5 Ml Drops1 Drop RIGHT EYE HS 01/08/14 Docusate Sodium 100 Mg Capsule1 Cap PO PRN 01/08/14 Tolterodine Tartrate (Detrol La)4 Mg Cap.sr.24h4 Mg PO DAILY 10/13/13 Budesonide/Formoterol Fumarate (Symbicort 160-4.5 Mcg Inhaler)10.2 Gm Hfa.aer.ad10.2 Gm IH BID 10/13/13 Iron Ps Cmplx/Vit B12/Fa (Poly-Iron 150 Forte Capsule)1 Udcap Capsule1 Udcap PO BID 10/13/13 Omeprazole (Prilosec)40 Mg Capsule.dr40 Mg PO ACB 10/13/13 Gabapentin 300 Mg [id number] Mg PO BID 10/13/13 Furosemide (Lasix)40 Mg Zezbeh39 Mg PO DAILY RESTART ON FEB 14. 10/13/13 Loratadine 10 Mg Vnrrkj78 Mg PO DAILY 08/05/13 Fish Oil/[place]-3 Fatty Acids (Fish Oil 1,000 Mg Softgel)1 Cap Capsule1 Cap PO BID 08/05/13 Calcium Carbonate (Calcium 500)1 Tab Tablet1 Tab PO BID 08/05/13 Antiox#10/Om3/Dha/Epa/Lut/Zeax (I-Caps With Lutein-[place] 3 Sfg)1 Each Capsule1 Each PO DAILY 08/05/13 Aspirin 81 Mg Vdcbmv48 Mg PO DAILY 08/05/13 Red Yeast Rice 600 Mg Tablet1,200 Mg PO BID 08/05/13 Magnesium Oxide (Magnesium)250 Mg Cjmayt496 Mg PO DAILY 08/05/13 Discharge Disposition stable Copies To 1: EDUARD CLARK MD Copies To 2: ОЛЬГА JOHNSON MD, FACS, CWS OSCAR MCCORMICK DO Apr 11, 2014 14:23 Procedures Procedure Status Date Provider(s) ROUTINE VENIPUNCTURE completed 02/12/14 METABOLIC PANEL TOTAL CA completed 02/12/14 COMPLETE CBC W/AUTO DIFF WBC completed 02/12/14 ELECTROCARDIOGRAM TRACING completed 02/12/14 L HRT ARTERY/VENTRICLE ANGIO completed 02/12/14 DASHA DE SANTIAGO MD [id number] ITEM OR SERVICE completed 02/12/14947088"INJECTION, DIPHENHYDRAMINE HCL, UP TO 50 MG" completed 02/12/14"INJECTION, HEPARIN SODIUM, PER 1000 UNITS" completed 02/12/14"INJECTION, HEPARIN SODIUM, PER 1000 UNITS" completed 02/12/14"INJECTION, MIDAZOLAM HYDROCHLORIDE, PER 1 MG" completed 02/12/14"INJECTION, METHYLPREDNISOLONE SODIUM SUCCINATE, UP TO completed "INJECTION, FENTANYL CITRATE, 0.1 MG" completed 02/12/14433973WLUPEQUHPNSG DRUGS completed 02/12/14"INFUSION, NORMAL SALINE SOLUTION , 1000 CC" completed 02/12/14"LOW OSMOLAR CONTRAST MATERIAL, 300-399 MG/ML IODINE C completed ROUTINE VENIPUNCTURE completed 02/19/14 METABOLIC PANEL TOTAL CA completed 02/19/14 BL SMEAR W/DIFF WBC COUNT completed 02/19/14 COMPLETE CBC AUTOMATED completed 02/19/14 [id number] ITEM OR SERVICE completed 02/19/14 [id number] ITEM OR SERVICE completed 02/19/14 [id number] ITEM OR SERVICE completed 02/19/14 [id number] ITEM OR SERVICE completed 02/19/14915763"CLOSURE DEVICE, VASCULAR (IMPLANTABLE/INSERTABLE)" completed 02/19/14874278LLMMA WIRE completed 02/19/14"STENT, COATED/COVERED, WITH DELIVERY SYSTEM" completed 02/19/14"CATHETER, GUIDING (MAY INCLUDE INFUSION/PERFUSION CAP completed [id number] THAN PEEL-AWAY completed 02/19/14 completed 02/19/14 LEVAR DE SANTIAGO MD [id number]"INJECTION, HEPARIN SODIUM, PER 1000 UNITS" completed 02/19/14"INJECTION, HEPARIN SODIUM, PER 1000 UNITS" completed 02/19/14"INJECTION, MIDAZOLAM HYDROCHLORIDE, PER 1 MG" completed 02/19/14"INJECTION, FENTANYL CITRATE, 0.1 MG" completed 02/19/14"INFUSION, NORMAL SALINE SOLUTION , 1000 CC" completed 02/19/14"LOW OSMOLAR CONTRAST MATERIAL, 300-399 MG/ML IODINE C completed Encounters Encounter Location Date/Time Discharged Inpatient [facility] 04/02/14 8:47am Departed Clinic [facility] 02/19/14 5:57am Departed Clinic [facility] 02/12/14 8:06am Registered Clinic [facility] 01/29/14 9:54am Discharged Inpatient [facility] 01/10/14 9:17am Recent Diagnosis Diabetes Urge incontinence History of cirrhosis Bradycardia Diverticulitis of large intestine with perforation Closed rib fracture Dyslipidemia History of RI (myocardial infarction) Allergic rhinitis Osteoarthritis Back pain Respiratory insufficiency Syncope Injury of jaw Low back pain Diverticulitis of large intestine with perforation Fall
--- OUTSIDE RECORDS SUMMARY | 2016-07-09 12:05 | XMS REPORT | Continuity of Care Document ---
Author Author Chelita Coelho Organization Amb[facility] Address [address] [facility] [place] [address] Phone Care Team Providers Care Dynamometer Tuner Name Role Phone Juan Maria PP Unavailable Payers Payer name Insurance type Covered democrat ID Authorization(s) Unknown Problems Condition Effective Dates (start - stop) Clinical Status DJD (degenerative joint disease), lumbar - *Chronic Right hip pain - *Symptomatic COPD - *Chronic CAD, Unspecified - *Chronic RESTLESS LEGS SYNDROME - *Chronic Hypertension, Benign - *Chronic Celiac disease - *Chronic NEED FOR PROPHYLACTIC VACCINATION AND INOCULATION, OTHER VIRAL DISEASES - Hip pain, right - *Acute Headache - *Chronic COPD - *Chronic CAD, [...] Dosage Effective Dates (start - stop) Status Test daily fasting or 2 hours after [...] tid - Active fish oil-fat acid [id number] 1,200 mg ([id number]) cap 4 c, po , qd - [...] Height Weight Pulse Rate Blood Pressure Temperature /14:16:00 63.00 in 180.00 lbs Procedures Procedure Date Unknown Encounters Encounter Location Date Patient Visit [facility] Orth[facility] Patient Visit [facility] Patient Visit [facility] Patient Visit [facility] Patient Visit [facility] Patient [facility] Patient [facility] Patient [facility] Patient [facility] Patient [facility] Patient Visit [facility] Patient Visit [facility] Patient Visit [facility] Patient Visit [facility] Patient Visit [facility] Patient Visit [facility] Advance Directives Directive Effective Date Unknown
--- OUTSIDE RECORDS SUMMARY | 2016-07-09 12:05 | XMS REPORT | Continuity of Care Document ---
Author Author [facility] Organization [facility] Address Unknown Phone Unavailable Support Name Relationship Address Phone EDUARD CLARK MD Caregiver [address] [facility] [facility] [place] [phone] SONDRA BERGERON MD Caregiver [address] [place] [address] DARLEEN LAWTON Next Of Kin Unknown [phone] Insurance Providers Payer Name Policy Number Subscriber Name Relationship Medicare [id number] Aurelia Duran 18 Self [facility] [id number] [place]lia [employer] Self Advance Directives Directive Response Recorded Date/Time Advanced Directives Type Living Will 10/13/13 1:33pm Problems Medical Problems Problem Onset Date Status Headache, chronic daily Unknown Active Headache, chronic daily Unknown Active Muscle strain Unknown Active Cellulitis Unknown Active Candidiasis, intertrigo Unknown Active Lower extremity pain Unknown Active Muscle strain Unknown Active Medications Medication Dose Route Sig Days/Qty Instructions Order Date Discontinued Date Status Flaxseed 1,000 Mg PO DAILY 08/05/13 Active Magnesium Oxide 250 Mg PO DAILY 08/05/13 Active Red Yeast Rice 1,200 Mg PO TWICE A DAY 08/05/13 Active Aspirin 81 Mg PO DAILY 08/05/13 Active Antiox#10/Om3/Dha/Epa/Lut/Zeax 1 Each PO DAILY 08/05/13 Active Calcium Carbonate 1 Tab PO TWICE A DAY 08/05/13 Active Fish Oil/[place]-3 Fatty Acids 1 Cap PO TWICE A DAY 08/05/13 Active Loratadine 10 Mg PO DAILY 08/05/13 Active Enalapril Maleate 15 Mg PO DAILY 10/13/13 Active Furosemide 40 Mg PO DAILY 10/13/13 Active Gabapentin 600 Mg PO TWICE A DAY 10/13/13 Active Omeprazole 40 Mg PO BEFORE BREAKFAST 10/13/13 Active Iron Ps Cmplx/Vit B12/Fa 1 Udcap PO TWICE A DAY 10/13/13 Active Potassium Chloride 10 Meq PO TWICE A DAY 10/13/13 Active Budesonide/Formoterol Fumarate 10.2 Gm IH DAILY 10/13/13 Active Tolterodine Tartrate 4 Mg PO DAILY 10/13/13 Active Tramadol Hcl 50 Mg PO NEEDED 10/13/13 Active Nystatin 0 MC THREE TIMES A DAY 1 Qty Apply to affected area in right groin 3 times daily until 10/13/13 Active Hydrocodone Bit/Acetaminophen 1-2 Tab PO EVERY 4-6 HOURS PRN PAIN 20 Qty 10/13/13 Active Social History Social History Problem Response Recorded Date/Time Smoking Status Unknown if ever smoked 10/13/2013 1:39pm Hospital Discharge Instructions No hospital discharge instructions. Plan of Care No plan of care. Functional Status Query Response Date Recorded Mental Status Alert October 13, 2013 4:56pm Allergies, Adverse Reactions, Alerts Allergen Type Severity Reaction Status Last Updated iodine Allergy Unknown Active 10/13/13 Penicillin Allergy Unknown Active 10/13/13 Aspirin Allergy Unknown Active 10/13/13 Immunizations No immunization records. Vital Signs Acute Vital Signs Vital Response Date/Time Temperature (Fahrenheit) 97.8 deg F (96.8 - 99.1) Temperature (Calculated Celsius) 36.09138 degrees C (36.0 - 37.3) Pulse Rate (adult) 78 bpm (60 - 100) Respiratory Rate 12 breaths/min (10 - 20) O2 Sat by Pulse Oximetry 94 % (90 - 100) Blood Pressure 157/73 mm Hg Height 5 ft 3 in Weight 180 lb Body Mass Index 31.0 kg/m^2 Results Test Source Date Result Interp. Ref. Range Comments Alanine Aminotransferase (ALT/SGPT) August 05, 2013 1:19pm 19 U/L N 9-52 Albumin August 05, 2013 1:19pm 3.9 G/DL N 3.5-5.0 Albumin/Globulin Ratio August 05, 2013 1:19pm 1.5 RATIO N 1.1-2.2 Alkaline Phosphatase August 05, 2013 1:19pm 63 U/L N 38-126 Anion Gap August 05, 2013 1:19pm 10 MEQ/L N 5-15 Aspartate Amino Transf (AST/SGOT) August 05, 2013 1:19pm 16 U/L N 14-36 BUN/Creatinine Ratio August 05, 2013 1:19pm 22 RATIO N 6-26 Basophils # (Auto) October 13, 2013 2:21pm 0.1 T/MM3 N 0-0.2 Basophils (%) (Auto) October 13, 2013 2:21pm 0.8 % N 0-2 Blood Urea Nitrogen August 05, 2013 1:19pm 24.0 MG/DL H 7-17 C-Reactive Protein August 05, 2013 1:19pm 14.3 MG/L H 0-9 Calcium Level August 05, 2013 1:19pm 9.1 MG/DL N 8.4-10.2 Calculated Osmolality August 05, 2013 1:19pm 276 MOSM/KG N 261-280 Carbon Dioxide Level August 05, 2013 1:19pm 29 MEQ/L N 22-30 Chloride Level August 05, 2013 1:19pm 102 MEQ/L N 98-107 Creatinine August 05, 2013 1:19pm 1.1 MG/DL N 0.7-1.2 Eosinophils # (Auto) October 13, 2013 2:21pm 0.3 T/MM3 N 0-0.5 Eosinophils (%) (Auto) October 13, 2013 2:21pm 2.9 % N 0-4 Erythrocyte Sedimentation Rate August 05, 2013 1:19pm 17 MM/HR N 0-20 Globulin August 05, 2013 1:19pm 2.6 G/DL N 2.4-3.6 Glucose Level August 05, 2013 1:19pm 120 MG/DL H 65-110 Hematocrit October 13, 2013 2:21pm 41.6 % N 36-46 Hemoglobin October 13, 2013 2:21pm 13.5 GM/DL N 12-16 Lymphocytes # (Auto) October 13, 2013 2:21pm 1.7 T/MM3 N 1-4.8 Lymphocytes (%) (Auto) October 13, 2013 2:21pm 19.2 % L 23-45 Mean Corpuscular Hemoglobin October 13, 2013 2:21pm 29.6 UUG N 26-34 Mean Corpuscular Hemoglobin Concent October 13, 2013 2:21pm 32.5 GM/DL N 31 -37 Mean Corpuscular Volume October 13, 2013 2:21pm 91.2 UM3 N 80-100 Mean Platelet Volume October 13, 2013 2:21pm 10.7 UM3 N 9.4-12.4 Monocytes # (Auto) October 13, 2013 2:21pm 1.1 T/MM3 H 0-0.8 Monocytes (%) (Auto) October 13, 2013 2:21pm 12.2 % H 0-9.0 Neutrophils # (Auto) October 13, 2013 2:21pm 5.8 T/MM3 N 1.8-7.7 Neutrophils (%) (Auto) October 13, 2013 2:21pm 64.7 % N 33-66 Platelet Count October 13, 2013 2:21pm 247 T/MM3 N 130-400 Potassium Level August 05, 2013 1:19pm 4.4 MEQ/L N 3.6-5 RDW Standard Deviation October 13, 2013 2:21pm 49.7 FL N 36.9-50.2 Red Blood Count October 13, 2013 2:21pm 4.56 M/MM3 N 4.00-5.20 Sodium Level August 05, 2013 1:19pm 141 MEQ/L N 134-144 Thyroid Stimulating Hormone (TSH) August 05, 2013 1:19pm 1.03 MIU/L N 0.47-4.68 Total Bilirubin August 05, 2013 1:19pm 0.30 MG/DL N 0.20-1.30 Total Protein August 05, 2013 1:19pm 6.5 G/DL N 6.3-8.2 Urine Bilirubin August 05, 2013 1:55pm Negative - Has specimen been collected/obtained? Y Urine Blood August 05, 2013 1:55pm Negative - Has specimen been collected/obtained? Y Urine Collection Type August 05, 2013 1:55pm Voided-not cc-midstr - Has specimen been collected/obtained? Y Urine Color August 05, 2013 1:55pm Yellow - Has specimen been collected/obtained? Y Urine Glucose (UA) August 05, 2013 1:55pm Negative - Has specimen been collected/obtained? Y Urine Ketones August 05, 2013 1:55pm Negative - Has specimen been collected/obtained? Y Urine Leukocyte Esterase August 05, 2013 1:55pm Negative - Has specimen been collected/obtained? Y Urine Nitrite August 05, 2013 1:55pm Negative - Has specimen been collected/obtained? Y Urine Protein August 05, 2013 1:55pm Negative - Has specimen been collected/obtained? Y Urine Specific Byron August 05, 2013 1:55pm <=1.005 L - Has specimen been collected/obtained? Y Urine Turbidity August 05, 2013 1:55pm Clear - Has specimen been collected/obtained? Y Urine Urobilinogen August 05, 2013 1:55pm 0.2 EU/DL - Has specimen been collected/obtained? Y Urine pH August 05, 2013 1:55pm 6.0 - Has specimen been collected/ obtained? Y White Blood Count October 13, 2013 2:21pm 9.0 T/MM3 N 4.5-11.0 Chemistry Specimen Hemolysis August 05, 2013 1:19pm < 15 0-25 0-25: No Hemolysis.26-70: Slight [...] can falsely decrease Phenytoin. Recommend specimen recollection. Urinalysis Comment August 05, 2013 1:55pm Microscopic not ind. - Has specimen been collected/obtained? Y Turbidity August 05, 2013 1:19pm < 20 0-20 Glomerular Filtration Rate Calc August 05, 2013 1:19pm 47 - Immature Granulocyte # (Auto) October 13, 2013 2:21pm 0.02 T/MM3 N 0.00- 0.03 Immature Granulocyte % (Auto) October 13, 2013 2:21pm 0.2 % N 0.0-0.5 Icterus Index August 05, 2013 1:19pm < 2 0-7 Procedures Procedure Status Date Provider(s) THER/PROPH/DIAG INJ IV PUSH completed 08/05/13 TX/PRO/DX INJ NEW DRUG ADDON completed 08/05/13 HYDRATE IV INFUSION ADD-ON completed 08/05/13 Encounters Encounter Location Date/Time Departed Emergency Room [facility] 10/13/13 1:28pm Departed Emergency Room [facility] 08/05/13 12:39pm Recent Diagnosis
--- OUTSIDE RECORDS SUMMARY | 2016-07-09 12:05 | XMS REPORT | Referral Summary ---
Author Author [facility] Organization [facility] Address Unknown Phone Unavailable Care Team Providers Care Collar Starcher Name Role Phone Andrey Maria Primary Care Physician [phone] Encounter VC Date(s): 02/18/15 - 02/18/15 [facility] [address] [place] [id number] Discharge Diagnosis: Skin candidiasis Discharge Disposition: 01-Home or Self Care Attending Physician: Lupis Ernst APRN Admitting Physician: Lupis Ernst APRN Vital Signs Most recent to 1 oldest [Reference Range]: Temperature Tympanic 36.3 degC [36.6-38.1 degC] *LOW* (02/18/15 1:05 PM) Peripheral Pulse 64 bpm Rate [60-100 bpm] (02/18/15 1:05 PM) Respiratory Rate 18 br/min [14-20 br/min] (02/18/15 1:05 PM) Blood Pressure 134/76 mmHg [90-140/60-90 mmHg] (02/18/15 1:05 PM) Problem List Condition Effective Dates Status Health [...] BID, # 60 tabs, 2 Refill(s), [facility] [id number] , 1 tabs Oral BID Start Date: [...] 0 Refill(s) Start Date: 04/15/14 Status: Ordered [place] 5 mg-325 mg oral tablet 1 tabs, [...] # 60 unknown unit, 2 Refill(s), eRx: [facility] [id number], TAKE 1 CAPSULE (10MEQ) BY ORAL ROUTE 2 TIMES EVERY DAY WITH FOOD Start Date: 01/28/14 Status: Ordered ProAir HFA 90 mcg/inh inhalation aerosol 2 puffs, Inhalation, q4hr, as needed for wheezing, 0 Refill(s) Start Date: 01/16/14 Status: Ordered Symbicort 160 mcg-4.5 mcg/inh inhalation aerosol 2 puffs, Inhalation, BID, To replace Advair (non-formulary [employer]). Candi prather. 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 Continue the nystatin powder and cream twice a day routinely. Discussed keeping skin clean and dry. Probiotic one tablet daily. If does not improve may need to consider culturing rash. Ordered: Office Visit Level 3 Est [id number]
--- OUTSIDE RECORDS SUMMARY | 2016-07-09 12:05 | XMS REPORT | Referral Summary ---
Author Author [facility] Organization [facility] Address Unknown Phone Unavailable Care Team Providers Care Supervisor Brooder Farm Name Role Phone Andrey Maria Primary Care Physician [phone] Encounter VC Date(s): 10/03/14 - 10/03/14 [facility] [address], [facility] [address] [place], [place] [address] Discharge Diagnosis: Obstructive sleep apnea, adult Discharge Disposition: 01-Home or Self Care Attending Physician: Roldan Alejandre MD Admitting Physician: Roldan Alejandre MD Referring Physician: Juan Maria MD Vital Signs Most recent to 1 oldest [Reference Range]: Peripheral Pulse 67 bpm Rate [60-100 bpm] (10/03/14 2:39 PM) Blood Pressure 122/60 mmHg [90-140/60-90 mmHg] (10/03/14 2:39 PM) SpO2 94 % (10/03/14 2:39 PM) Problem List Condition Effective Dates Status [...] BID, # 60 tabs, 2 Refill(s), Pharmacy: [facility] [id number] , 1 tabs Oral BID Start Date: [...] 0 Refill(s) Start Date: 04/15/14 Status: Ordered [place] 5 mg-325 mg oral tablet 1 tabs, [...] # 60 unknown unit, 2 Refill(s), eRx: [facility] [id number], TAKE 1 CAPSULE (10MEQ) BY ORAL ROUTE 2 TIMES EVERY DAY WITH FOOD Start Date: 01/28/14 Status: Ordered ProAir HFA 90 mcg/inh inhalation aerosol 2 puffs, Inhalation, q4hr, as needed for wheezing, 0 Refill(s) Start Date: 01/16/14 Status: Ordered Symbicort 160 mcg-4.5 mcg/inh inhalation aerosol 2 puffs, Inhalation, BID, To replace Advair (non-formulary [employer]). Candi prather. [facility] # 1 Each, 3 Refill(s) Start [...] Visit Note Author: Roldan Alejandre MD Date: 10/03/14 Assessment/Plan Obstructive sleep apnea, adult Assessment: Obstructive sleep apnea syndrome. The patient is complying with CPAP and benefiting. Her sleep apnea is adequately controlled at the current pressure, no changes are needed. Plan: Continue CPAP at current pressure range. With her debility, I would recommend a PRN return. A form is filled out for her snf.
--- OUTSIDE RECORDS SUMMARY | 2016-07-09 12:06 | XMS REPORT | Continuity of Care Document ---
Author Author [facility] Organization [facility] Address Unknown Phone Unavailable Support Name Relationship Address Phone JACE OSCAR DO Caregiver [address] [place] [address] EDUARD CLARK MD Caregiver [address] [place] [phone] DARLEEN LAWTON Next Of Kin Unknown [phone] Insurance Providers Payer Name Policy Number Subscriber Name Relationship Medicare [id number] RogerAurelia 18 Self [facility] [id number] Aurelia Duran 16 Self Advance Directives Directive Response Recorded Date/Time Advanced Directives Type Living Will 10/13/13 1:33pm Ordered Resuscitation Status Full Code 01/01/14 5:40pm Chief Complaint and Reason for Visit Chief Complaint CHF EXACRERBATION Reason for Visit CHF exacerbation A-fib Asthma with COPD CAD (coronary artery disease) Diabetes GERD (gastroesophageal reflux disease) Insomnia Urge incontinence Sleep apnea Glaucoma Depression History of cirrhosis Problems Medical Problems Problem Onset Date Status [...] Unknown Active History of cirrhosis Unknown Resolved Medications Medication Dose Route Sig Days/Qty Instructions [...] PO TWICE A DAY 08/05/13 Active Fish Oil/Birch Tree-3 Fatty Acids 1 Cap PO TWICE A [...] HOURS PRN PAIN 20 Qty 10/13/13 Active Enalapril Maleate 1 Tab PO TWICE A DAY 60 Qty 01/03/14 Active Social History Social History Problem Response Recorded Date/Time Smoking Status Unknown if ever smoked 10/13/2013 1:39pm Hospital Discharge Instructions Instructions: Care Instructions: Reason for Hospitalization: CONGESTIVE HEART FAILURE EXACERBATION I was in the hospital because (patient own words): States,"I was having shortness of air and i gained 12lbs." Discharge Diet: diabetic/cardiac 2g low sodium Discharge Activity: as tolerated Follow Up Appointments: RETURN TO DR CONTRERAS'S OFFICE 01/29/14 AT 1:00PM FOR ECHOCARDIOGRAM. CHECK IN AT [facility] REGISTRATION ON 01/15/14 AT 8:30AM FOR A NUCLEAR STRESS TEST. FOLLOW UP AT DR CONTRERAS'S OFFICE ON 02/04/14 AT 2:45PM. Patient Instructions: Should your symptoms return you could contact Dr Clark or Dr Contreras through the office or return to the ED for emergent evaluation Condition at time of discharge: Good BLOOT CLOTS WALKING (REPETITIVE, I KNOW, BUT IT'S GOOD FOR YOU) AND ANKLES PUMPS TAKE ANTICOAGULANTS ORDERED-ASPIRIN, COUMADIN, OR LOVENOX FOR COUMADIN-LABS DRAWN ON EVERY TUESDAY AND TUESDAY LOVENOX INSTRUCTIONS ON PAGE 35 IN YOUR WORKBOOK PULMONARY EMBOLUS IF YOU EXPERIENCE SUDDEN CHEST PAIN, DIFFICULT OR RAPID BREATHING, SHORTNESS OF BREATH, SWEATING OR CONFUSION, CALL 911-THIS CAN POTENTIALLY BE LIFE THREATENING! Wound/Incision Care: LEAVE THE DRESSING ON. IT WILL BE REMOVED AT YOUR FOLLOW UP APPOINTMENT, PLEASE REPORT TO SURGEON IF DRESSING BECOMES DISLODGED OR WET Durable Medical Equipment: [email or web address] [phone] Notify Physician If: CALL YOUR SURGEON IF: INCISION BECOMES MORE RED AND INFLAMMED FEVER GREATER THAN 101.0, OR NIGHT SWEATS INCREASE DRAINAGE OR CHANGE IN COLOR OF DRAINAGE INCREASED PAIN, NOT ASSOCIATED WITH ACTIVITY PAIN, REDNESS OR SWELLING IN EITHER LEG BLEEDING OR OOZING FROM SURGICAL SITE DRESSING BECOME DISLODGED OR WET Condition at time of discharge: Good Dr. Camarillo wants to see you in follow up on 01/01/14. You will need to get an INR on 12/26/[address] Camarillo with the result [phone]. Condition at time of discharge: Good Plan of Care Discharge Date 01/03/14 3:55pm Disposition 01 DISCHARGED HOME, SELF-CARE Instructions/Education Provided [facility] [place] Congestive Heart Failure Prescriptions See Medications Section Functional Status Query Response Date Recorded Mental Status Alert October 13, 2013 4:56pm Allergies, Adverse Reactions, Alerts Allergen Type Severity Reaction Status Last Updated iodine Allergy Unknown Active 01/02/14 Penicillin Allergy Unknown Active 01/02/14 Cephalexin Allergy Intermediate Active 01/02/14 Immunizations Name Given Type Hx Influenza Vaccination No Historical Hx Pneumococcal Vaccination Y GIVEN 01/02/14 AT [facility] [place] Hx Influenza Vaccination No Historical Vital Signs Acute Vital Signs Vital Response Date/Time Temperature (Fahrenheit) 98.9 deg F (96.8 - 99.1) Temperature (Calculated Celsius) 37.20491 degrees C (36.0 - 37.3) Temperature Source Oral Pulse Rate (adult) 75 bpm (60 - 100) Respiratory Rate 16 breaths/min (10 - 20) O2 Sat by Pulse Oximetry 92 % (90 - 100) Height 5 ft 3 in Weight 184 lb Body Mass Index 32.0 kg/m^2 Results Test Source Date Result Interp. Ref. Range Comments Alanine Aminotransferase (ALT/SGPT) January 02, 2014 5:13am 23 U/L N 9 -52 Albumin January 02, 2014 5:13am 3.8 G/DL N 3.5-5.0 Albumin/Globulin Ratio January 02, 2014 5:13am 1.5 RATIO N 1.1-2.2 Alkaline Phosphatase January 02, 2014 5:13am 64 U/L N 38-126 Anion Gap January 02, 2014 5:13am 9 MEQ/L N 5-15 Aspartate Amino Transf (AST/SGOT) January 02, 2014 5:13am 19 U/L N 14- 36 BUN/Creatinine Ratio January 02, 2014 5:13am 17 RATIO N 6-26 Basophils # (Auto) January 02, 2014 5:13am 0.1 T/MM3 N 0-0.2 Basophils (%) (Auto) January 02, 2014 5:13am 0.8 % N 0-2 Blood Urea Nitrogen January 02, 2014 5:13am 19.0 MG/DL H 7-17 C-Reactive Protein August 05, 2013 1:19pm 14.3 MG/L H 0-9 Calcium Level January 02, 2014 5:13am 9.0 MG/DL N 8.4-10.2 Calculated Osmolality January 02, 2014 5:13am 275 MOSM/KG N 261-280 Carbon Dioxide Level January 02, 2014 5:13am 34 MEQ/L H 22-30 Chemistry Specimen Hemolysis January 02, 2014 5:13am 29 H 0-25 0-25: No Hemolysis.26-70: Slight Hemolysis [...] Phenytoin. Recommend specimen recollection. Chloride Level January 02, 2014 5:13am 98 MEQ/L N 98-107 Creatinine January 02, 2014 5:13am 1.1 MG/DL N 0.7-1.2 Eosinophils # (Auto) January 02, 2014 5:13am 0.1 T/MM3 N 0-0.5 Eosinophils (%) (Auto) January 02, 2014 5:13am 1.0 % N 0-4 Erythrocyte Sedimentation Rate August 05, 2013 1:19pm 17 MM/HR N 0-20 Globulin January 02, 2014 5:13am 2.6 G/DL N 2.4-3.6 Glomerular Filtration Rate Calc January 02, 2014 5:13am 47 - Glucometer January 03, 2014 10:55am 113 mg/dL H 65-110 Glucose Level January 02, 2014 5:13am 138 MG/DL H 65-110 Hematocrit January 02, 2014 5:13am 40.6 % N 36-46 Hemoglobin January 02, 2014 5:13am 13.4 GM/DL N 12-16 Hemoglobin A1c January 01, 2014 5:56pm 6.0 % N 6-7 <6.0 NON-DIABETIC RANGE6.0-7.0 ADA THERAPEUTIC RANGE >7.0 ACTION SUGGESTED Icterus Index January 02, 2014 5:13am < 2 0-7 Immature Granulocyte # (Auto) January 02, 2014 5:13am 0.04 T/MM3 H 0.00-0.03 Immature Granulocyte % (Auto) January 02, 2014 5:13am 0.5 % N 0.0-0.5 Lab Scanned Report January 01, 2014 9:21pm LAB TEST FORM REQUEST - Lymphocytes # (Auto) January 02, 2014 5:13am 1.5 T/MM3 N 1-4.8 Lymphocytes (%) (Auto) January 02, 2014 5:13am 16.8 % L 23-45 Magnesium Level January 01, 2014 5:56pm 2.3 MG/DL N 1.6-2.3 Mean Corpuscular Hemoglobin January 02, 2014 5:13am 29.6 UUG N 26-34 Mean Corpuscular Hemoglobin Concent January 02, 2014 5:13am 33.0 GM/DL N 31-37 Mean Corpuscular Volume January 02, 2014 5:13am 89.8 UM3 N 80-100 Mean Platelet Volume January 02, 2014 5:13am 11.4 UM3 N 9.4-12.4 Monocytes # (Auto) January 02, 2014 5:13am 0.9 T/MM3 H 0-0.8 Monocytes (%) (Auto) January 02, 2014 5:13am 10.4 % H 0-9.0 GZ-Iac-L-Type Natriuretic Peptide January 02, 2014 5:13am 244 PG/ML H 0-175 Rule in cut points: <50 years old=450; 50-75 years old=900; >75 years old=1800; When utilizing ProBNP rule-in cut points, adjustment for impaired renal function is typically not required. Neutrophils # (Auto) January 02, 2014 5:13am 6.1 T/MM3 N 1.8-7.7 Neutrophils (%) (Auto) January 02, 2014 5:13am 70.5 % H 33-66 Platelet Count January 02, 2014 5:13am 178 T/MM3 N 130-400 Potassium Level January 02, 2014 5:13am 4.4 MEQ/L N 3.6-5 Prealbumin January 01, 2014 5:56pm 36.1 MG/DL H 17.6-36.0 RDW Standard Deviation January 02, 2014 5:13am 47.2 FL N 36.9-50.2 Red Blood Count January 02, 2014 5:13am 4.52 M/MM3 N 4.00-5.20 Sodium Level January 02, 2014 5:13am 141 MEQ/L N 134-144 Thyroid Stimulating Hormone (TSH) January 01, 2014 5:56pm 2.50 MIU/L DN 0.47-4.68 Total Bilirubin January 02, 2014 5:13am 0.40 MG/DL N 0.20-1.30 Total Protein January 02, 2014 5:13am 6.4 G/DL N 6.3-8.2 Troponin I January 02, 2014 5:13am < 0.012 ng/ml 0-0.12 Turbidity January 02, 2014 5:13am < 20 0-20 Urinalysis Comment January 01, 2014 8:10pm Microscopic not ind. - COMMENT UA, C&S REFLEXHas specimen been collected/obtained? Y Urine Bilirubin January 01, 2014 8:10pm Negative - COMMENT UA, C&S REFLEXHas specimen been collected/obtained? Y Urine Blood January 01, 2014 8:10pm Negative - COMMENT UA, C&S REFLEXHas specimen been collected/obtained? Y Urine Collection Type January 01, 2014 8:10pm Cleancatch-midstream - COMMENT UA, C&S REFLEXHas specimen been collected/obtained? Y Urine Color January 01, 2014 8:10pm Yellow - COMMENT UA, C&S REFLEXHas specimen been collected/obtained? Y Urine Glucose (UA) January 01, 2014 8:10pm Negative - COMMENT UA, C &S REFLEXHas specimen been collected/obtained? Y Urine Ketones January 01, 2014 8:10pm Negative - COMMENT UA, C&S REFLEXHas specimen been collected/obtained? Y Urine Leukocyte Esterase January 01, 2014 8:10pm Negative - COMMENT UA, C&S REFLEXHas specimen been collected/obtained? Y Urine Nitrite January 01, 2014 8:10pm Negative - COMMENT UA, C&S REFLEXHas specimen been collected/obtained? Y Urine Protein January 01, 2014 8:10pm Negative - COMMENT UA, C&S REFLEXHas specimen been collected/obtained? Y Urine Specific [place] January 01, 2014 8:10pm <=1.005 L - COMMENT UA , C&S REFLEXHas specimen been collected/obtained? Y Urine Turbidity January 01, 2014 8:10pm Clear - COMMENT UA, C&S REFLEXHas specimen been collected/obtained? Y Urine Urobilinogen January 01, 2014 8:10pm 0.2 EU/DL - COMMENT UA, C&S REFLEXHas specimen been collected/obtained? Y Urine pH January 01, 2014 8:10pm 7.0 - COMMENT UA, C&S REFLEXHas specimen been collected/obtained? Y White Blood Count January 02, 2014 5:13am 8.6 T/MM3 DN 4.5-11.0 Name: AURELIA DURAN Unit #: [id number] : 1930 Sex: F DISCHARGE SUMMARY Admit Date: 01/03/14 Report #: [id number] General Date Date DATE: 01/03/14 TIME: 14:50 Attending Physician Oscar Brown DO Admitting Physician Oscar Brown DO Consulting Physician Dasha Contreras MD Admitting Diagnosis (1) CHF exacerbation Status: Acute (2) Asthma with COPD Status: Acute Assessment & Plan: (3) Diabetes Status: Acute (4) A-fib Status: Chronic (5) CAD (coronary artery disease) Status: Chronic (6) GERD (gastroesophageal reflux disease) Status: Chronic (7) Glaucoma Status: Chronic (8) Insomnia Status: Chronic (9) Depression Status: Chronic (10) Sleep apnea Status: Chronic Discharge Diagnosis same Laboratory Laboratory Laboratory Tests Test 01/02/14 01/02/14 01/03/14 01/03/14 16:42 20:43 06:17 10:55 Glucometer 116 mg/dL 142 mg/dL 121 mg/dL 113 mg/dL History of Present Illness Patient is an 83-year-old female who was brought to the [facility] to see Dr. Min for increasing shortness of breath over the last week. Her primary care provider is Dr. Clark. Patient reports has been using her rescue inhaler more often however is not seeming to get much relief. She reports dyspnea is worse with laying flat and reports she has had increased cough that is nonproductive. Patient reports that yesterday and today she noticed that she is more dyspneic even with sitting still. Patient lives alone and her daughter usually sets up her pill- patient is unsure she is taking her daily medications including her Lasix for fluid motivation to patient does have a known history of congestive heart failure. While at the clinic a CBC, BNP, BMP, Chest xray, EKG. EKG was a sinus rhythm with a rate of 86. Patient's chest x-ray was consistent with cardiomegaly with cephalization of pulmonary vessels. CBC-6.4, hemoglobin 13, hematocrit 39.3, platelet count 170 otherwise unremarkable. Sodium is 141, potassium 3.8, BUN 16 , creatinine 1.0, glucose 161, calculated osmolality 275. Pro BNP 154. Based on patient's clinical symptomatic dyspnea as well his medication adherence Dr. Brown was contacted by Dr. Min for direct admission to the outpatient floor. It is expected that patient stay will be less than 2 overnights. Hospital Course Pt was admitted to the outpt unit under the hospitalist service. She was started on IV lasix and a montero was placed. Neb treatments were given as well. Pt did diurese well. Home meds were continued. Pain and nausea were controlled with PRN medications. DVT and GI protection was utilized. Dr Contreras did see the pt after changes were noted on her echo (see report) and he was consulted to see the pt. He did change her enalapril to BID and encouraged a low sodium diet. At discharge pt was feeling much improved and felt ready to go home. CM did see her and she denied any needs. She was instructed to f/u with Dr Contreras in a week for outpt repeat echo , nuclear stress testing and office followup. Should her symptoms return she could either contact her PCP Dr Clark or Dr Contreras through the office or return to the ED for emergent evaluation Problems: (1) CHF exacerbation Status: Acute (2) Asthma with COPD Status: Acute Assessment & Plan: (3) Diabetes Status: Acute (4) A-fib Status: Chronic (5) CAD (coronary artery disease) Status: Chronic (6) GERD (gastroesophageal reflux disease) Status: Chronic (7) Glaucoma Status: Chronic (8) Insomnia Status: Chronic (9) Depression Status: Chronic (10) Sleep apnea Status: Chronic Assessment & Plan: May use C-pap (11) History of cirrhosis Status: Resolved DVT Prophylaxis: SCD'S GI Prophylaxis: Protonix Code Status Full Code Home Meds Active Scripts Enalapril Maleate 10 Mg Tablet1 Tab PO BID #60 TAB Prov:OSCAR BROWN DO 01/03/14 Hydrocodone Bit/Acetaminophen ([place] 5/325 Tablet)1 Tab Tablet1-2 Tab PO Q4-6H PRN (PAIN) #20 TAB Prov:SIA CARBONE 10/13/13 Reported Medications Tramadol Hcl 50 Mg Uufkqx97 Mg PO PRN 10/13/13 Tolterodine Tartrate (Detrol La)4 Mg Cap.sr.24h4 Mg PO DAILY 10/13/13 Budesonide/Formoterol Fumarate (Symbicort 160-4.5 Mcg Inhaler)10.2 Gm Hfa.aer.ad10.2 Gm IH DAILY 10/13/13 Potassium Chloride 10 Meq Capsule.sa10 Meq PO BID 10/13/13 Iron Ps Cmplx/Vit B12/Fa (Poly-Iron 150 Forte Capsule)1 Udcap Capsule1 Udcap PO BID 10/13/13 Omeprazole (Prilosec)40 Mg Capsule.dr40 Mg PO ACB 10/13/13 Gabapentin 300 Mg Mvtvqqg189 Mg PO BID 10/13/13 Furosemide (Lasix)40 Mg Vltrac46 Mg PO DAILY 10/13/13 Loratadine 10 Mg Aveitf67 Mg PO DAILY 08/05/13 Fish Oil/Birch Tree-3 Fatty Acids (Fish Oil 1,000 Mg Softgel)1 Cap Capsule1 Cap PO BID 08/05/13 Calcium Carbonate (Calcium 500)1 Tab Tablet1 Tab PO BID 08/05/13 Antiox#10/Om3/Dha/Epa/Lut/Zeax (I-Caps With Lutein-Birch Tree 3 Sfg)1 Each Capsule1 Each PO DAILY 08/05/13 Aspirin 81 Mg Rssrrr61 Mg PO DAILY 08/05/13 Red Yeast Rice 600 Mg Tablet1,200 Mg PO BID 08/05/13 Magnesium Oxide (Magnesium)250 Mg Bilroo850 Mg PO DAILY 08/05/13 Discontinued Reported Medications Flaxseed (Flaxseed Oil)1,000 Mg Capsule1,000 Mg PO DAILY 08/05/13 Discontinued Scripts Nystatin 25 Gm Powder Mc Tid #1 Pwd Apply to affected area in right groin 3 times daily until resolved. Prov:SIA CARBONE 10/13/13 Discharge Disposition stable Copies To 1: EDUARD CLARK MD Copies To 2: DASHA CONTRERAS MD, CARRIE DO Jan 03, 2014 14:55 Procedures No known history of procedures. Encounters Encounter Location Date/Time Discharged Inpatient [facility] 01/03/14 10:31am Registered Clinic [facility] 01/01/14 4:18pm Registered Clinic [facility] 11/06/13 8:54am Departed Emergency Room [facility] 10/13/13 1:28pm Recent Diagnosis CHF exacerbation A-fib Asthma with COPD CAD (coronary artery disease) Diabetes GERD (gastroesophageal reflux disease) Insomnia Urge incontinence Sleep apnea Glaucoma Depression History of cirrhosis
--- OUTSIDE RECORDS SUMMARY | 2016-07-09 12:06 | XMS REPORT | Continuity of Care Document ---
Author Author Stefani Diez RN Ambulatory Address [address] [place] [address] Phone Care Team Providers Care Territory Supervisor Name Role Phone Juan Maria PP Unavailable Payers Payer name Insurance type Covered green party ID Authorization(s) Unknown Problems Condition Effective Dates (start - stop) Clinical Status COPD - *Chronic CAD, Unspecified - *Chronic RESTLESS LEGS SYNDROME - *Chronic Hypertension, Benign - *Chronic COPD - Chronic CAD, Unspecified - Chronic RESTLESS LEGS SYNDROME - Chronic Hypertension, Benign - Chronic Back pain - *Chronic Stomach tumor (benign) - *Chronic COPD - *Chronic CAD, Unspecified - *Chronic RESTLESS LEGS SYNDROME - *Chronic Hypertension, Benign - *Chronic Celiac disease - *Chronic NEED FOR PROPHYLACTIC VACCINATION AND INOCULATION, OTHER VIRAL DISEASES - DJD (degenerative joint disease), lumbar - *Chronic Right hip pain - *Symptomatic Hip pain, right - *Acute Headache - [...] *Chronic Influenza Vaccine - COPD - Chronic Family History Family Member [...] tid - Active fish oil-fat acid comb8-herb [id number] 1,200 mg (400 [id number]) cap 4 c, po , qd - [...] Height Weight Pulse Rate Blood Pressure Temperature /10:00:00 63.00 in 179.00 lbs 68 /min 112/68 mm[Hg] 97.7 F Procedures Procedure Date Unknown Encounters Encounter Location Date Patient Visit [facility] Patient Visit [facility] Patient Visit [facility] Patient Visit [facility] Patient Visit [facility] Patient Visit [facility] Patient Visit [facility] Patient Visit [facility] Patient Visit [facility] Patient Visit [facility] Orth[facility] Patient Visit [facility] Patient Visit [facility] Patient Visit [facility] Patient Visit [facility] Patient Visit [facility] Patient Visit [facility] Advance Directives Directive Effective Date Unknown
--- NOTE | 2016-07-09 12:24 | ERPDOC ---
Departure Disposition Decision Date: Jul 09, 2016 Disposition Decision Time: 14:44 (ENRIQUE WILLSON APRN) Disposition: 02 TO [facility] Impression Impression (ENRIQUE WILLSON APRN) Impression: Primary Impression: Bradycardia Additional Impressions: UTI (urinary tract infection) Fall Hand fracture, right Condition: Stable Seen By: Mid-level only (ENRIQUE WILLSON APRN) Referrals: EDUARD CLARK MD (Family) Problems/Meds/Labs Reviewed?: Yes Medications reviewed and manag: Yes (ENRIQUE WILLSON APRN) Follow up care ordered?: Yes Mental Status: Alert, Oriented (ENRIQUE WILLSON APRN) Scripts Diltiazem HCl (Cardizem Cd) 120 Mg Cap.er.24h 120 MG PO DAILY for hypertension/SVT, #30 CAP Prov: ANGELES FUNK MD 07/16/16 Minocycline HCl (Minocin) 50 Mg Capsule 50 MG PO BID for prophylaxsis after pacemaker for 6 Days, #12 CAP Prov: ANGELES FUNK MD 07/16/16 Tramadol HCl (Tramadol HCl) 50 Mg Tablet 25 MG PO HS Y for pain, #30 Prov: ANGELES FUNK MD 07/16/16 HPI - Fall/Injury General Chief Complaint: Fall Stated Complaint: FALL,RIGHT WRIST PAIN Time Seen by Provider: 12:24 Source: patient, family (son Shawn) (ENRIQUE WILLSON APRN) Time Seen by Provider: 12:39 (ANDREW MASTERSON MD) HPI - Fall/Injury Initial Comments Aurelia is an 86 year old elderly female resident of [facility]. She was reportedly sitting on the toilet this morning and fell off there is question as to whether it was witnessed. Patient is a poor historian and son was not present. Patient reportedly struck her head on the right side and comes to the emergency room via private facility vehicle. Complains of right wrist and right shoulder pain. Son states yesterday patient was found asleep on the toilet and that over the last couple of days she has had poor sleeping and increased daytime fatigue. No documented or known fevers. Patient denies any chest pain or trouble breathing. She denies cough. Patient reports not being able to bear weight fully following fall but normally is ambulatory with walker. retirement documentation corroborates inability to bear weight post fall. Pain Scale: Now: 10/10 Injuries/Pain Location: head, upper extremity, pelvis, lower extremity Context: unknown Loss of Consciousness: no loss of consciousness Associated Symptoms: neck pain Hx of Similar Symptoms: Yes (ENRIQUE WILLSON APRN) Allergies: Coded Allergies: cephalexin (Verified Allergy, Intermediate, 07/09/16) Penicillins (Verified Allergy, Unknown, 07/09/16) iodine (Verified Allergy, Unknown, 07/09/16) milk (Verified Allergy, Unknown, 07/09/16) gluten (Verified Adverse Reaction, Intermediate, diarrhea, stomach cramps , 07/13/16) Past History Patient Surgical History Back surgery Cholecystectomy Cardiac stent T&A (ENRIQUE WILLSON APRN) Past Medical History Metabolic: diabetes, hypercholesterolemia, hypertension ENMT: cataracts, glaucoma Cardiac: A-fib, CAD, CHF, [place], echocardiogram Respiratory: COPD, asthma, other, pneumonia GI: GERD, gallbladder disease, other Female: other Neurological: concussion, headaches, migraines, neuropathy Musculoskeletal: back pain, osteoarthritis Psychological: depression (ENRIQUE WILLSON APRN) Surgical History General: back, gallbladder, other, tonsils Cardiac: cardiac cath, cardiac stent (ENRIQUE WILLSON APRN) Family History Family PMH: FOUND: CAD, CHF, [place], cancer, diabetes, hypertension (ENRIQUE WILLSON APRN) Vaccines Hx Influenza Vaccination: Yes (FALL 2014) Hx Pneumococcal Vaccination: No (UNKNOWN MAYBE 2 YEARS AGO PER SON) Hx Tetanus Diptheria: No (UNKNOWN) Hx Tetanus, Diptheria, Pertuss: No (UNKNOWN) (ENRIQUE WILLSON APRN) Social History Smoking Status: Never smoker Substance Use Type: does not use Alcohol Intake: none Sexuality: other Housing: [facility] Current Occupational Status: retired Advance Directives: Yes DNR, Yes DPOA for Healthcare Only (ENRIQUE WILLSON APRN) Review of Systems Constitutional Constitutional: weakness, DENIES: fever (ENRIQUE WILLSON APRN) Eyes Vision: other (legally blind) (ENRIQUE WILLSON APRN) ENMT Mouth/Throat: DENIES: sore throat (ENRIQUE WILLSON APRN) Cardiovascular Cardiac: DENIES: chest pain, dyspnea on exertion (ENRIQUE WILLSON APRN) Pulmonary Respiratory: DENIES: cough (WILLSON,ENRIQUE ORGANIZATIONAL RESEARCH CONSULTANT) GI Upper Abdomen: DENIES: vomiting Lower Abdomen: DENIES: diarrhea (WILLSON,ENRIQUE ORGANIZATIONAL RESEARCH CONSULTANT) General: DENIES: dysuria (WILLSON,ENRIQUE ORGANIZATIONAL RESEARCH CONSULTANT) Musculoskeletal General: pain (rt wrist, rt shoulder, pelvis) (WILLSON,ENRIQUE ORGANIZATIONAL RESEARCH CONSULTANT) Integumentary Skin: DENIES: rash (WILLSON,ENRIQUE ORGANIZATIONAL RESEARCH CONSULTANT) Neurological General: headache (WILLSON,ENRIQUE ORGANIZATIONAL RESEARCH CONSULTANT) Psychiatric Psychiatric: memory loss (WILLSON,ENRIQUE ORGANIZATIONAL RESEARCH CONSULTANT) All other Systems All Other Systems: Reviewed and Negative (WILLSON,ENRIQUE ORGANIZATIONAL RESEARCH CONSULTANT) Physical Exam General General Nourishment: well nourished, well developed, appears stated age, no acute distress (WILLSON,ENRIQUE ORGANIZATIONAL RESEARCH CONSULTANT) Vitals and Pain Weight: Kilograms: 75.300 Height (feet): 5 Height (inches): 3.00 Triage Pain Scale: (WILLSON,ENRIQUE ORGANIZATIONAL RESEARCH CONSULTANT) Eyes (brief) Eyes Brief: found: PERRL, not found: scleral icterus, trauma (WILLSON,ENRIQUE ORGANIZATIONAL RESEARCH CONSULTANT) ENMT (brief) ENMT Brief: FOUND: TM clear, TM good light reflex, ear canals clear, mucosa moist, NOT FOUND: nasal exudate (WILLSON,ENRIQUE ORGANIZATIONAL RESEARCH CONSULTANT) Neck (brief) Neck: NOT FOUND: thyromegaly (WILLSON,ENRIQUE ORGANIZATIONAL RESEARCH CONSULTANT) Respiratory (brief) Respiratory: FOUND: clear all florez, equal bilaterally (WILLSON,ENRIQUE ORGANIZATIONAL RESEARCH CONSULTANT) Cardiovascular (brief) Cardiac: FOUND: regular rate, regular rhythm (WILLSON,ENRIQUE ORGANIZATIONAL RESEARCH CONSULTANT) Abdomen (brief) Abdominal Brief: FOUND: bowel normo active x4, soft, NOT FOUND: tender (WILLSON, ENRIQUE ORGANIZATIONAL RESEARCH CONSULTANT) Lymphatic (brief) Lymphatic Brief: NOT FOUND: lymphedema (WILLSON,ENRIQUE ORGANIZATIONAL RESEARCH CONSULTANT) Musculoskeletal (brief) Musculoskeletal Brief: FOUND: tenderness (rt wrist, rt shoulder, cspine) (WILLSON, ENRIQUE ORGANIZATIONAL RESEARCH CONSULTANT) Integumentary (brief) Integumentary Brief: FOUND: dry, pink, warm, NOT FOUND: rash (WILLSON,ENRIQUE ORGANIZATIONAL RESEARCH CONSULTANT) Neurologic (brief) Neurological Brief: FOUND: CN w/o gross def to obs (WILLSON,ENRIQUE ORGANIZATIONAL RESEARCH CONSULTANT) Psychiatric (brief) Psychiatric Brief: FOUND: alert, attentive, oriented (WILLSON,ENRIQUE ORGANIZATIONAL RESEARCH CONSULTANT) Differential Diagnoses Considering: Contusion, Fracture, Sprain, Strain, Subdural Hematoma, UTI (ENRIQUE WILLSON APRN) Procedures Splinting Procedure Splint : Site: rt wrist Pre-placement NV: FOUND: good movement, good sensation Hand-Made Type: orthoglass Splint: volar Post-placement NV: FOUND: cap refill < 3 sec, good movement, good sensation Applied by: PA/CLINICAL OFFICE TECHNICIAN (ENRIQUE WILLSON APRN) Progress Results/Orders Orders Procedure Category Date Status Time Cbc W/Auto LAB 07/09/16 Complete Diff-Reflex Manual 12:39 Bmp - Basic Metabolic LAB 07/09/16 Complete Panel 12:39 EKG EKG 07/09/16 Taken 12:39 Pelvis 1-2 View RAD 07/09/16 Resulted Dedicated Pelv 12:39 Ct Head W/O Contrast CT 07/09/16 Resulted 12:39 Ct Cervical Spine W/O CT 07/09/16 Resulted Contrast 12:39 Iv Lock (Ed Only) EDM 07/09/16 Transmitted 12:39 Troponin I W LAB 07/09/16 Complete Hemolysis Index 12:39 Wrist Right 2 View RAD 07/09/16 Resulted Shoulder Right 2-3 RAD 07/09/16 Resulted Views Telemetry CINDA 07/09/16 Complete 13:17 UA, LAB 07/09/16 Complete Dip&Micro(Complete) & 13:29 Urine Culture DANIEL 07/09/16 Complete 13:53 Lactate - Lactic Acid LAB 07/09/16 Complete Lactate - Lactic Acid LAB 07/09/16 Complete 18:37 Blood Culture DANIEL 07/09/16 Complete Levofloxacin 500 Mg PHA 07/09/16 Complete Ivpb (Levaquin [address] 15:00 Place In Facility As: ADMIT 07/09/16 Transmitted 14:47 (ANDREW MASTERSON MD) Lab Results Laboratory Tests Test 07/09/16 13:23 07/09/16 13:29 07/09/16 14:37 White Blood Count 14.6T/MM3 Red Blood Count 5.17M/MM3 Hemoglobin 14.9GM/DL Hematocrit 45.7% Mean Corpuscular Volume 88.4UM3 Mean Corpuscular Hemoglobin 28.8UUG Mean Corpuscular Hemoglobin Concent 32.6GM/DL RDW Standard Deviation 47.9FL Platelet Count 243T/MM3 Mean Platelet Volume 11.5UM3 Immature Granulocyte % (Auto) 0.2% Neutrophils (%) (Auto) 80.9% Lymphocytes (%) (Auto) 10.2% Monocytes (%) (Auto) 7.9% Eosinophils (%) (Auto) 0.5% Basophils (%) (Auto) 0.3% Absolute Immature Granulocyte (auto 0.03T/MM3 Absolute Neutrophils (auto) 11.8T/MM3 Absolute Lymphocytes (auto) 1.5T/MM3 Absolute Monocytes (auto) 1.2T/MM3 Absolute Eosinophils (auto) 0.1T/MM3 Absolute Basophils (auto) 0.0T/MM3 Turbidity < 20 Sodium Level 144MEQ/L Potassium Level 5.2MEQ/L Chloride Level 104MEQ/L Carbon Dioxide Level 28MEQ/L Anion Gap 12MEQ/L Blood Urea Nitrogen 26.0MG/DL Creatinine 1.8MG/DL Glomerular Filtration Rate Calc 27 BUN/Creatinine Ratio 14RATIO Glucose Level 123MG/DL Hemoglobin A1c 6.0% Calculated Osmolality 283MOSM/KG Calcium Level 9.8MG/DL Icterus Index < 2 Troponin I < 0.012ng/ml Thyroid Stimulating Hormone (TSH) 1.60MIU/L Chemistry Specimen Hemolysis 20 Urine Collection Type Urine Color Yellow Urine Turbidity Sl cloudy Urine pH 5.5 Urine Specific [place] 1.010 Urine Protein Negative Urine Glucose (UA) Negative Urine Ketones Negative Urine Blood Negative Urine Nitrite Positive Urine Bilirubin Negative Urine Urobilinogen 0.2EU/DL Urine Leukocyte Esterase 1+ Urine RBC 0-1/HPF Urine WBC 3-5/HPF Urine WBC Clumps Few Urine Squamous Epithelial Cells None seen Urine Amorphous Urates Few Urine Bacteria 2+ Urine Culture Indicated Cult reflexed &setup Plasma Lactate 2.2MMOL/L (ANDREW MASTERSON MD) Progress Progress 1435 - Patient as low as 42 on the firing pin gauger while sleeping. (ENRIQUE WILLSON APRN) EKG EKG : Rate: <60 Rhythm: sinus QRS: RBBB ST/T: non-specific changes Interpreted by: signing physician (ENRIQUE WILLSON APRN) Consult/PCP Consult/PCP : Time Called: 14:35 Time of first response: 14:40 Type of discussion: Admit Discussion/PCP Discussion Details Admit acute UTI, bradycardia (ENRIQUE WILLSON APRN) Xray Xray #1: Xray: Wrist R Interpretation: Abnormal (closed fx fourth metacarpal), Interpreted by Me Xray #2: Xray: Shoulder R Interpretation: Normal, Reviewed Written Report Xray #3: Xray: Pelvis Interpretation: Normal, Reviewed Written Report (ENRIQUE WILLSON APRN) CT CT #1: CT: Head no contrast Interpretation: Abnormal (subacute vs chronic occipital infarct), Reviewed Written Report CT #2: CT: C-Spine no contrast Interpretation: Normal, Reviewed Written Report (ENRIQUE WILLSON APRN) ENRIQUE WILLSON APRN Jul 09, 2016 12:24 ANDREW MASTERSON MD Jul 20, 2016 17:04
--- NOTE | 2016-07-09 12:26 | NUR ---
ENRIQUE ORTIZ IN
--- NOTE | 2016-07-09 12:38 | NUR ---
HX PT WAS ON TOILET & TIPPED APPLIANCE CAUSED HER TO HIT HER HEAD. NO LOC. PT REPORTEDLY ALWAYS HAS GARBLED SPEECH. HAS C/O RT WRIST PAIN. NO DEFORMITY NOTED.
[2016-07-09] MEDS ORDERED: BUDE10.2 INH (12:40)
[2016-07-09] MEDS ORDERED: METO25TA6 PO (12:40)
[2016-07-09] MEDS ORDERED: GABA-305 PO (12:40)
[2016-07-09] MEDS ORDERED: ENAL10TA PO (12:42)
[2016-07-09] MEDS ORDERED: CLOP75TA33 PO (12:46)
[2016-07-09] MEDS ORDERED: POTA20TA87 PO (12:46)
--- OUTSIDE RECORDS SUMMARY | 2016-07-09 12:46 | XMS REPORT | Continuity of Care Document ---
[facility] Address Unknown Phone Unavailable Care Team Providers Care Director Outcomes Name Role Phone Yuval Hoang Primary Care Physician [phone] Source Comments Some departments are not documenting in the electronic medical record. If you do not see the information that you expected, contact Release of Information in the Health Information Management department at [phone] for further assistance in locating additional records[facility] Active Allergies and Adverse Reactions Allergen Noted Date Severity Reactions Comments Aspartame 09/16/2010 UNKNOWN Contrast Dye Iv, Iodine 09/16/2010 RASH, ITCHING Containing Gluten 09/16/2010 SEE COMMENTS Celiac disease Keflex 09/16/2010 NAUSEA AND VOMITING Lactose 09/16/2010 NAUSEA AND VOMITING Merthiolate (Thimerosal) 09/16/2010 UNKNOWN Penicillins 09/16/2010 SEE COMMENTS Bruising from IM injection Eydaasz-Eie-Smg Reductase 09/16/2010 UNKNOWN Inhibitors Current Medications Prescription [...]
--- OUTSIDE RECORDS SUMMARY | 2016-07-09 12:46 | XMS REPORT | Continuity of Care Document ---
Author Author [facility] Organization [facility] Address Unknown Phone Unavailable Allergies Medications Problems [...] Status Pt. Type Provider Facility Loc./Unit Complaint [id number] 05/08/2012 05:57:00 2012 10:55:00 DIS Outpatient Jose Hightower MD [facility]
--- OUTSIDE RECORDS SUMMARY | 2016-07-09 12:46 | XMS REPORT | Continuity of Care Document ---
Author Author [facility] Organization [facility] Address Unknown Phone Unavailable Support Name Relationship Address Phone JES SIEGEL MD Caregiver [address] [place] [address] [place] [address] PEDRO LIU MD Caregiver [address] [place] [address] [place] [phone] JUNA CLARK MD Caregiver [address] [place] [phone] DARLEEN LAWTON Next Of Kin [address] [place] [address] Insurance Providers Payer Name Policy Number Subscriber Name Relationship Medicare [id number] Aurelia Duran 16 Self [facility] [id number] Aurelia Duran 16 Self Advance Directives Directive [...] PO TWICE A DAY 08/05/13 Active Fish Oil/Fluker-3 Fatty Acids 1 Cap PO TWICE A [...] of your legs. 3.During office hours, call [phone] 4. After hours, please call [facility] at [phone], and have the picker machine operator page your Surgeon IN THE EVENT OF [...] Hx Influenza Vaccination [place] [facility] [place] Hx Pneumococcal Vaccination Y GIVEN 01/02/14 AT [facility] Historical Hx Tetanus, Diptheria, Pertussis N UNKNOWN Historical Hx Influenza Vaccination Y GIVEN 01/11/10 AT [facility] Historical Hx Tetanus Diptheria N UNKNOWN Historical [...] F (96.8 - 99.1) Temperature (Calculated Celsius) 35.92231 degrees C (36.0 - 37.3) Temperature Source [...] 01, 2014 9:21pm LAB TEST FORM REQUEST [id number] - Lipase January 08, 2014 12:24pm 136 [...] 12, 2014 5:29am 6.0 % N 0-9.0 UL-Jny-D-Type Natriuretic Peptide January 08, 2014 12:24pm 133 [...] Has specimen been collected/obtained? Y Urine Specific [place] January 08, 2014 3:05pm 1.010 L - [...] 4 DAYS Name: AURELIA DURAN Unit #: [id number] : 1930 Sex: F Loc / Svc: ED DOS: 01/08/14 Signed Report #: [id number] DIAGNOSTIC IMAGING REPORT TYPE OF EXAM: CHEST, [...] procedures. Encounters Encounter Location Date/Time Discharged Inpatient [facility] 01/10/14 9:17am Discharged Inpatient [facility] 01/03/14 10:31am Registered Clinic [facility] 01/01/14 4:18pm Registered [facility] 11/06/13 8:54am Recent Diagnosis Dyspnea on exertion COPD exacerbation Chest pain on exertion Pneumonia Dyspnea on exertion Diastolic CHF, chronic Obesity (BMI 30.0-34.9) Chest pain as manifestation of blood transfusion reaction HTN (hypertension) Elevated serum creatinine Hyponatremia
--- OUTSIDE RECORDS SUMMARY | 2016-07-09 12:47 | XMS REPORT | Continuity of Care Document ---
Author Author [facility] Organization [facility] Address Unknown Phone Unavailable Support Name Relationship Address Phone EDUARD CLARK MD Caregiver [address] [place] [phone] SONDRA BERGERON MD Caregiver [address] [place] [address] DARLEEN LAWTON Next Of Kin Unknown [phone] Insurance Providers Payer Name Policy Number Subscriber Name Relationship Medicare [id number] Aurelia Duran 16 Self [facility] [id number] [place]lia 16 Self Advance Directives Directive Response Recorded [...] PO TWICE A DAY 08/05/13 Active Fish Oil/[place]-3 Fatty Acids 1 Cap PO TWICE A [...] F (96.8 - 99.1) Temperature (Calculated Celsius) 36.70232 degrees C (36.0 - 37.3) Pulse Rate [...] Has specimen been collected/obtained? Y Urine Specific [place] August 05, 2013 1:55pm <=1.005 L - [...] Encounters Encounter Location Date/Time Departed Emergency Room [facility] 10/13/13 1:28pm Departed Emergency Room [facility] 08/05/13 12:39pm Recent Diagnosis
--- OUTSIDE RECORDS SUMMARY | 2016-07-09 12:47 | XMS REPORT | Continuity of Care Document ---
Author Author [facility] Organization [facility] Address Unknown Phone Unavailable Support Name Relationship Address Phone DASHA DE SANTIAGO MD Caregiver [address] [place] [address] [place] [phone] EDUARD CLARK MD Caregiver [address] [place] [phone] DARLEEN LAWTON Next Of Kin [address] [place] [id number] Insurance Providers Payer Name Policy Number Subscriber Name Relationship Medicare [id number] Aurelia Duran [address] [facility] [id number] Aurelia Duran 16 Self Advance Directives Directive Response Recorded Date/Time Advanced Directives Type Living Will 10/13/13 1:33pm Ordered Resuscitation Status Full Code, unverified 02/12/14 8:44am Resuscitation Documents on File No 02/12/14 8:30am Chief Complaint and Reason for Visit Chief Complaint Chest Pain Reason for Visit [id number] Dyspnea on exertion Chest pain on exertion [...] PO TWICE A DAY 08/05/13 Active Fish Oil/[place]-3 Fatty Acids 1 Cap PO TWICE A [...] Discharge Date 01/12/14 6:00pm Disposition 02 TO [facility] Condition at Discharge Stable Instructions/Education Provided [...] Hx P[place] [facility] [place] Hx Tetanus, Diptheria, Pertussis N UNKNOWN Historical Hx Influenza Vaccination Y PT UNSURE BELIEVES LAST ONE PASTIN 2012 Historical Hx Tetanus Diptheria N UNKNOWN Historical Hx Tetanus, Diptheria, Pertussis N UNKNOWN Historical Hx Tetanus Toxoid Vaccination N UNKNOWN Historical Vital Signs Acute Vital Signs Vital Response Date/Time Temperature (Fahrenheit) 96.3 deg F (96.8 - 99.1) Temperature (Calculated Celsius) 35.86160 degrees C (36.0 - 37.3) Temperature Source [...] 01, 2014 9:21pm LAB TEST FORM REQUEST [id number] - Lipase January 08, 2014 12:24pm 136 [...] COMMENT NURSE WILL CALL WHEN PT HERE XW-Lyb-M-Type Natriuretic Peptide January 08, 2014 12:24pm 133 [...] Has specimen been collected/obtained? Y Urine Specific [place] January 08, 2014 3:05pm 1.010 L - [...] 5 DAYS Name: AURELIA DURAN Unit #: [id number] : 1930 Sex: F DISCHARGE SUMMARY Admit Date: 01/10/14 Report #: [id number] General Date Date DATE: 01/12/14 TIME: 14:46 [...] old woman who was recently [place] [facility] [place]. She was discharged [...] home from the hospital. She presented [place] [facility] [place]. There, lab and [...] CM did get them set up with [facility]. She was instructed to f/u with [...] Mg PO ACB 10/13/13 Gabapentin 300 Mg [id number] Mg PO BID 10/13/13 Furosemide (Lasix)40 Mg [id number] Mg PO DAILY 10/13/13 Loratadine 10 Mg Jyvwhe69 Mg PO DAILY 08/05/13 Fish Oil/Biddle-3 Fatty Acids (Fish Oil 1,000 Mg Softgel)1 Cap Capsule1 Cap PO BID 08/05/13 Calcium Carbonate (Calcium 500)1 Tab Tablet1 Tab PO BID 08/05/13 Antiox#10/Om3/Dha/Epa/Lut/Zeax (I-Caps With Lutein-Biddle 3 Sfg)1 Each Capsule1 Each PO DAILY 08/05/13 Aspirin 81 Mg [id number] Mg PO DAILY 08/05/13 Red Yeast Rice 600 Mg Tablet1,200 Mg PO BID 08/05/13 Magnesium Oxide (Magnesium)250 Mg [id number] Mg PO DAILY 08/05/13 Discharge Disposition stable Copies To 1: EDUARD CLARK MD, CARRIE DO Jan 12, 2014 14:46 Procedures No known history of procedures. Encounters Encounter Location Date/Time Departed [facility] 02/12/14 8:06am Registered [facility] 01/29/14 9:54am Discharged Inpatient [facility] 01/10/14 9:17am Discharged Inpatient [facility] 01/03/14 10:31am Registered [facility] 01/01/14 4:18pm
--- OUTSIDE RECORDS SUMMARY | 2016-07-09 12:47 | XMS REPORT | Continuity of Care Document ---
Author Author [facility] Organization [facility] Address Unknown Phone Unavailable Support Name Relationship Address Phone LEVAR DE SANTIAGO MD Caregiver [address] [address] EDUARD CLARK MD Caregiver [address] [facility] [address] [facility] [address] [place], [place] [phone] LAWTONDARLEEN Next Of Kin [address] [facility] [facility] [place] [id number] Insurance Providers Payer Name Policy Number Subscriber Name Relationship Medicare [id number] Aurelia Duran 18 Self [facility] [id number] Aurelia Duran 18 Self Advance Directives Directive Response Recorded Date/Time Advanced Directives Type Living Will 10/13/13 1:33pm Ordered Resuscitation Status Full Code, unverified 02/19/14 3:20am Chief Complaint and Reason for Visit Chief Complaint Chest Pain Reason for Visit [id number] Dyspnea on exertion Chest pain on exertion [...] PO TWICE A DAY 08/05/13 Active Fish Oil/[place]-3 Fatty Acids 1 Cap PO TWICE A [...] A DAY 02/19/14 Active Sodium Chloride 1 [place] NS NEEDED 02/19/14 Active Clopidogrel Bisulfate 75 [...] Discharge Date 01/12/14 6:00pm Disposition 02 TO [facility] Condition at Discharge Stable Instructions/Education Provided DI [...] Hx Pneumococcal Vaccination Y GIVEN 01/02/14 AT [facility] Historical Hx Tetanus, Diptheria, Pertussis N UNKNOWN Historical Hx Influenza Vaccination Y JANUARY 2014 Historical Hx Tetanus Diptheria N UNKNOWN Historical Hx Tetanus, Diptheria, Pertussis N UNKNOWN Historical Hx Tetanus Toxoid Vaccination N UNKNOWN Historical Vital Signs Acute Vital Signs Vital Response Date/Time Temperature (Fahrenheit) 96.7 deg F (96.8 - 99.1) Temperature (Calculated Celsius) 35.07664 degrees C (36.0 - 37.3) Temperature Source [...] 01, 2014 9:21pm LAB TEST FORM REQUEST [id number] - Lipase January 08, 2014 12:24pm 136 [...] COMMENT NURSE WILL CALL WHEN PT HERE BM-Vmq-Y-Type Natriuretic Peptide January 08, 2014 12:24pm 133 [...] Has specimen been collected/obtained? Y Urine Specific [place] January 08, 2014 3:05pm 1.010 L - [...] 5 DAYS Name: AURELIA DURAN Unit #: [id number] : 1930 Sex: F DISCHARGE SUMMARY Admit Date: 01/10/14 Report #: [id number] General Date Date DATE: 01/12/14 TIME: 14:46 [...] old woman who was recently admitted to [facility] for CHF exacerbation. She was discharged on [...] home from the hospital. She presented to [facility] ED for evaluation. There, lab and imaging [...] CM did get them set up with [facility]. She was instructed to f/u with her [...] Mg PO ACB 10/13/13 Gabapentin 300 Mg Miuejnn826 Mg PO BID 10/13/13 Furosemide (Lasix)40 Mg Mrnxqp53 Mg PO DAILY 10/13/13 Loratadine 10 Mg Dxdoah38 Mg PO DAILY 08/05/13 Fish Oil/[place]-3 Fatty Acids (Fish Oil 1,000 Mg Softgel)1 Cap Capsule1 Cap PO BID 08/05/13 Calcium Carbonate (Calcium 500)1 Tab Tablet1 Tab PO BID 08/05/13 Antiox#10/Om3/Dha/Epa/Lut/Zeax (I-Caps With Lutein-[place] 3 Sfg)1 Each Capsule1 Each PO DAILY 08/05/13 Aspirin 81 Mg Eweiju69 Mg PO DAILY 08/05/13 Red Yeast Rice 600 Mg Tablet1,200 Mg PO BID 08/05/13 Magnesium Oxide (Magnesium)250 Mg Tfbkig727 Mg PO DAILY 08/05/13 Discharge Disposition stable Copies To 1: EDUARD CLARK MD, CARRIE DO Jan 12, 2014 14:46 Procedures Procedure Status Date Provider(s) ROUTINE VENIPUNCTURE completed 02/12/14 METABOLIC PANEL TOTAL CA completed 02/12/14 COMPLETE CBC W/AUTO DIFF WBC completed 02/12/14 ELECTROCARDIOGRAM TRACING completed 02/12/14 L HRT ARTERY/VENTRICLE ANGIO completed 02/12/14 DASHA DE SANTIAGO MD [id number] ITEM OR SERVICE completed 02/12/14619831"INJECTION, DIPHENHYDRAMINE HCL, UP TO 50 MG" completed 02/12/14693036"INJECTION, HEPARIN SODIUM, PER 1000 UNITS" completed 02/12/14782376"INJECTION, HEPARIN SODIUM, PER 1000 UNITS" completed 02/12/14065180"INJECTION, MIDAZOLAM HYDROCHLORIDE, PER 1 MG" completed 02/12/14334140"INJECTION, METHYLPREDNISOLONE SODIUM SUCCINATE, UP TO completed 003"INJECTION, FENTANYL CITRATE, 0.1 MG" completed 02/12/14462720NARAHXWYKYDW DRUGS completed 02/12/14070792"INFUSION, NORMAL SALINE SOLUTION , 1000 CC" completed 02/12/14145102"LOW OSMOLAR CONTRAST MATERIAL, 300-399 MG/ML IODINE C completed Encounters Encounter Location Date/Time Departed [facility] 02/19/14 5:57am Departed [facility] 02/12/14 8:06am Registered Clinic [facility] 01/29/14 9:54am Discharged Inpatient [facility] 01/10/14 9:17am Discharged Inpatient [facility] 01/03/14 10:31am Registered Clinic [facility] 01/01/14 4:18pm
--- OUTSIDE RECORDS SUMMARY | 2016-07-09 12:48 | XMS REPORT | Continuity of Care Document ---
Author Author [facility] Organization [facility] Address Unknown Phone Unavailable Support Name Relationship Address Phone JACE OSCAR DO Caregiver [address] [place] [address] EDUARD CLARK MD Caregiver [address] [place] [phone] DARLEEN LAWTON Next Of Kin Unknown [phone] Insurance Providers Payer Name Policy Number Subscriber Name Relationship Medicare [id number] RogerAurelia 18 Self [facility] [id number] Aurelia Duran 18 Self Advance Directives Directive [...] PO TWICE A DAY 08/05/13 Active Fish Oil/[place]-3 Fatty Acids 1 Cap PO TWICE A [...] AT 1:00PM FOR ECHOCARDIOGRAM. CHECK IN AT [facility] REGISTRATION ON 01/15/14 AT 8:30AM FOR A [...] BECOMES DISLODGED OR WET Durable Medical Equipment: [employer] [phone] Notify Physician If: CALL YOUR SURGEON IF: [...] and call Dr. Camarillo with the result [phone]. Condition at time of discharge: Good Plan of Care Discharge Date 01/03/14 3:55pm Disposition 01 DISCHARGED HOME, SELF-CARE Instructions/Education Provided [facility] Congestive Heart Failure Prescriptions See Medications Section Functional Status Query Response Date Recorded Mental Status Alert October 13, 2013 4:56pm Allergies, Adverse Reactions, Alerts Allergen Type Severity Reaction Status Last Updated iodine Allergy Unknown Active 01/02/14 Penicillin Allergy Unknown Active 01/02/14 Cephalexin Allergy Intermediate Active 01/02/14 Immunizations Name Given Type Hx Influenza Vaccination No Historical Hx Pneumococcal Vaccination Y GIVEN 01/02/14 AT [facility] Historical Hx Influenza Vaccination No Historical Vital Signs Acute Vital Signs Vital Response Date/Time Temperature (Fahrenheit) 98.9 deg F (96.8 - 99.1) Temperature (Calculated Celsius) 37.44292 degrees C (36.0 - 37.3) Temperature Source [...] 02, 2014 5:13am 10.4 % H 0-9.0 DZ-Wyo-K-Type Natriuretic Peptide January 02, 2014 5:13am 244 [...] REFLEXHas specimen been collected/obtained? Y Urine Specific [place] January 01, 2014 8:10pm <=1.005 L - [...] DN 4.5-11.0 Name: AURELIA DURAN Unit #: [id number] : 1930 Sex: F DISCHARGE SUMMARY Admit Date: 01/03/14 Report #: [id number] General Date Date DATE: 01/03/14 TIME: 14:50 [...] 83-year-old female who was brought to the [facility] to see Dr. Min for increasing shortness [...] TAB Prov:OSCAR BROWN DO 01/03/14 Hydrocodone Bit/Acetaminophen ([place] 5/325 Tablet)1 Tab Tablet1-2 Tab PO Q4-6H PRN (PAIN) #20 TAB Prov:SIA CARBONE 10/13/13 Reported Medications Tramadol Hcl 50 Mg Heinmq61 Mg PO PRN 10/13/13 Tolterodine Tartrate (Detrol La)4 Mg Cap.sr.24h4 Mg PO DAILY 10/13/13 Budesonide/Formoterol Fumarate (Symbicort 160-4.5 Mcg Inhaler)10.2 Gm Hfa.aer.ad10.2 Gm IH DAILY 10/13/13 Potassium Chloride 10 Meq Capsule.sa10 Meq PO BID 10/13/13 Iron Ps Cmplx/Vit B12/Fa (Poly-Iron 150 Forte Capsule)1 Udcap Capsule1 Udcap PO BID 10/13/13 Omeprazole (Prilosec)40 Mg Capsule.dr40 Mg PO ACB 10/13/13 Gabapentin 300 Mg Cpfbfus526 Mg PO BID 10/13/13 Furosemide (Lasix)40 Mg Dwmbfd47 Mg PO DAILY 10/13/13 Loratadine 10 Mg Qyzoph51 Mg PO DAILY 08/05/13 Fish Oil/[place]-3 Fatty Acids (Fish Oil 1,000 Mg Softgel)1 Cap Capsule1 Cap PO BID 08/05/13 Calcium Carbonate (Calcium 500)1 Tab Tablet1 Tab PO BID 08/05/13 Antiox#10/Om3/Dha/Epa/Lut/Zeax (I-Caps With Lutein-[place] 3 Sfg)1 Each Capsule1 Each PO DAILY 08/05/13 Aspirin 81 Mg Yxgcbw13 Mg PO DAILY 08/05/13 Red Yeast Rice 600 Mg Tablet1,200 Mg PO BID 08/05/13 Magnesium Oxide (Magnesium)250 Mg Tbgjtv727 Mg PO DAILY 08/05/13 Discontinued Reported Medications [...] procedures. Encounters Encounter Location Date/Time Discharged Inpatient [facility] 01/03/14 10:31am Registered Clinic [facility] 01/01/14 4:18pm Registered Clinic [facility] 11/06/13 8:54am Departed Emergency Room [facility] 10/13/13 1:28pm Recent Diagnosis CHF exacerbation A-fib Asthma with COPD CAD (coronary artery disease) Diabetes GERD (gastroesophageal reflux disease) Insomnia Urge incontinence Sleep apnea Glaucoma Depression History of cirrhosis
--- OUTSIDE RECORDS SUMMARY | 2016-07-09 12:48 | XMS REPORT | Continuity of Care Document ---
Author Author [facility] Organization [facility] Address Unknown Phone Unavailable Support Name Relationship Address Phone MAGNUS BACK MD Caregiver [address] [place] [address] [address] [place] [phone] ОЛЬГА JOHNSON FACS, MD Caregiver [address] [place] [address] [address] [place] [phone] PEDRO LIU MD Caregiver [address] [place] [address] [place] [phone] EDUARD CLARK MD Caregiver [address] [place] [place] [address] [place] [phone] DARLEEN LAWTON Next Of Kin [address] [place] [address] Insurance Providers Payer Name Policy Number Subscriber Name Relationship Medicare [id number] Aurelia Duran 18 Self [facility] [id number] Aurelia Duran 18 Self Advance Directives Directive [...] perforation Closed rib fracture Dyslipidemia History of SD (myocardial infarction) Allergic rhinitis Osteoarthritis Back pain [...] ~04/02/2014 Active Dyslipidemia Unknown Active History of SD (myocardial infarction) Unknown Active Allergic rhinitis Unknown [...] PO TWICE A DAY 08/05/13 Active Fish Oil/[place]-3 Fatty Acids 1 Cap PO TWICE A [...] A DAY 02/19/14 Active Sodium Chloride 1 [place] NS NEEDED 02/19/14 Active Clopidogrel Bisulfate 75 [...] have difficulty breathing. During office hours, call [phone]. After hours, please call [facility] at [phone] and have the die stamping press operator page Dr. Pretty or the covering surgeon. *In the event of an emergency, seek medical care at the nearest emergency room.* Condition at time of discharge: Good Plan of Care Discharge Date 04/11/14 4:35pm Disposition 06 HOME HEALTH SERVICE Instructions/Education Provided [facility] Congestive Heart Failure DI for Diverticulitis Prescriptions [...] Hx Pneumococcal Vaccination Y GIVEN 01/02/14 AT [facility] Historical Hx Tetanus, Diptheria, Pertussis N UNKNOWN Historical Hx Influenza Vaccination Y JANUARY 2014 Historical Hx Tetanus Diptheria N UNKNOWN Historical Hx Tetanus, Diptheria, Pertussis N UNKNOWN Historical Hx Tetanus Toxoid Vaccination N UNKNOWN Historical Vital Signs Acute Vital Signs Vital Response Date/Time Temperature (Fahrenheit) 96.7 deg F (96.8 - 99.1) Temperature (Calculated Celsius) 35.88558 degrees C (36.0 - 37.3) Temperature Source [...] 01, 2014 9:21pm LAB TEST FORM REQUEST [id number] - Large Platelets April 08, 2014 4:37am [...] 10, 2014 5:05am 13.4 % H 0-9.0 RK-Fln-H-Type Natriuretic Peptide April 02, 2014 8:46am 438 [...] Has specimen been collected/obtained? Y Urine Specific [place] April 02, 2014 9:05am 1.010 L - [...] 5 DAYS Name: AURELIA DURAN Unit #: [id number] : 1930 Sex: F DISCHARGE SUMMARY Admit Date: 04/02/14 Report #: [id number] General Date Date DATE: 04/11/14 TIME: 14:18 Attending Physician Magnus Back MD Admitting Physician Magnus Back MD Consulting Physician [facility] Dr Johnson Admitting Diagnosis (1) Syncope Status: Acute (2) Diverticulitis of large intestine with perforation Status: Acute (3) Respiratory insufficiency Status: Acute Assessment & Plan: present on admission (4) Closed rib fracture Onset Date: ~ 04/02/2014 Status: Acute Assessment & Plan: [id number] rib (5) Bradycardia Status: Acute Assessment & [...] Urge incontinence Status: Chronic (22) History of SD (myocardial infarction) Status: Chronic (23) Dyslipidemia Status: [...] 84 year old female who presented to [facility] ED today, 04/02/14, via EMS for severe low back pain after falling at home. She reports that she remembers going to bed last night and then woke up this morning on the floor. She pushed her emergency button to alert EMS who responded and transported her to [facility] ED. Upon arrival to the ED she [...] ~ 04/02/2014 Status: Acute Assessment & Plan: fwlf80so rib (5) Bradycardia Status: Resolved Assessment & [...] (18) Diabetes Status: Chronic (19) History of SD (myocardial infarction) Status: Chronic (20) Dyslipidemia Status: Chronic DVT Prophylaxis: SCD'S GI Prophylaxis: Protonix Code Status Full Code Home Meds Active Scripts Polyethylene Glycol 3350 17 Gm Powd.pack1 Packet PO DAILY 30 Days Prov:OSCAR MCCORMICK DO 04/11/14 Ciprofloxacin HCl (Cipro)500 Mg Dubxbg249 Mg PO Q12HR 10 Days Prov:OSCAR MCCORMICK DO 04/11/14 Hydrocodone/Acetaminophen (Hydrocodon-Acetaminophen 5-325)1 Tab Tablet1 Tab PO Q4H PRN (PAIN) #30 TAB Prov:OSCAR MCCORMICK DO 04/11/14 Metronidazole (Flagyl)500 Mg Rmajwr459 Mg PO Q12HR 10 Days Prov:OSCAR MCCORMICK DO 04/11/14 Clopidogrel Bisulfate (Plavix)75 Mg Mdwhff91 Mg PO DAILY #30 Ref 11 Prov:LEVAR DE SANTIAGO MD 02/19/14 Potassium Chloride 20 Meq Tablet.er20 Meq PO BIDWM #0 TAB Take 1 tablet, by mouth, two times a day with meals. Prov:DASHA DE SANTIAGO MD 02/12/14 Enalapril Maleate 10 Mg Tablet1 Tab PO BID #60 TAB Prov:OSCAR MCCORMICK DO 01/03/14 Reported Medications Sodium Chloride (Saline Nasal [place])30 Ml Spray1 [place] NS PRN 02/19/14 Guaifenesin 400 Mg Tablet1 [...] Mg PO ACB 10/13/13 Gabapentin 300 Mg Iwxvnnh104 Mg PO BID 10/13/13 Furosemide (Lasix)40 Mg Wachph10 Mg PO DAILY RESTART ON FEB 14. 10/13/13 Loratadine 10 Mg Ohbedz90 Mg PO DAILY 08/05/13 Fish Oil/[place]-3 Fatty Acids (Fish Oil 1,000 Mg Softgel)1 Cap Capsule1 Cap PO BID 08/05/13 Calcium Carbonate (Calcium 500)1 Tab Tablet1 Tab PO BID 08/05/13 Antiox#10/Om3/Dha/Epa/Lut/Zeax (I-Caps With Lutein-[place] 3 Sfg)1 Each Capsule1 Each PO DAILY 08/05/13 Aspirin 81 Mg Gxjhhh89 Mg PO DAILY 08/05/13 Red Yeast Rice 600 Mg Tablet1,200 Mg PO BID 08/05/13 Magnesium Oxide (Magnesium)250 Mg Qhazfd324 Mg PO DAILY 08/05/13 Discharge Disposition stable [...] ANGIO completed 02/12/14 DASHA DE SANTIAGO MD [id number] ITEM OR SERVICE completed 02/12/14043433"INJECTION, DIPHENHYDRAMINE HCL, UP TO 50 MG" completed 02/12/14"INJECTION, HEPARIN SODIUM, PER 1000 UNITS" completed 02/12/14"INJECTION, HEPARIN SODIUM, PER 1000 UNITS" completed 02/12/14"INJECTION, MIDAZOLAM HYDROCHLORIDE, PER 1 MG" completed 02/12/14"INJECTION, METHYLPREDNISOLONE SODIUM SUCCINATE, UP TO completed "INJECTION, FENTANYL CITRATE, 0.1 MG" completed 02/12/14876643XWTXRWFIGEEX DRUGS completed 02/12/14"INFUSION, NORMAL SALINE SOLUTION , 1000 CC" completed 02/12/14"LOW OSMOLAR CONTRAST MATERIAL, 300-399 MG/ML IODINE C completed ROUTINE VENIPUNCTURE completed 02/19/14 METABOLIC PANEL TOTAL CA completed 02/19/14 BL SMEAR W/DIFF WBC COUNT completed 02/19/14 COMPLETE CBC AUTOMATED completed 02/19/14 [id number] ITEM OR SERVICE completed 02/19/14 [id number] ITEM OR SERVICE completed 02/19/14 [id number] ITEM OR SERVICE completed 02/19/14 [id number] ITEM OR SERVICE completed 02/19/14529371"CLOSURE DEVICE, VASCULAR (IMPLANTABLE/INSERTABLE)" completed 02/19/14132242BKJXU WIRE completed 02/19/14"STENT, COATED/COVERED, WITH DELIVERY SYSTEM" completed 02/19/14"CATHETER, GUIDING (MAY INCLUDE INFUSION/PERFUSION CAP completed [id number] THAN PEEL-AWAY completed 02/19/14 completed 02/19/14 LEVAR DE SANTIAGO MD [id number]"INJECTION, HEPARIN SODIUM, PER 1000 UNITS" completed 02/19/14"INJECTION, HEPARIN SODIUM, PER 1000 UNITS" completed 02/19/14"INJECTION, MIDAZOLAM HYDROCHLORIDE, PER 1 MG" completed 02/19/14"INJECTION, FENTANYL CITRATE, 0.1 MG" completed 02/19/14"INFUSION, NORMAL SALINE SOLUTION , 1000 CC" completed 02/19/14"LOW OSMOLAR CONTRAST MATERIAL, 300-399 MG/ML IODINE C completed Encounters Encounter Location Date/Time Discharged Inpatient [facility] 04/02/14 8:47am Departed Clinic [facility] 02/19/14 5:57am Departed Clinic [facility] 02/12/14 8:06am Registered Clinic [facility] 01/29/14 9:54am Discharged Inpatient [facility] 01/10/14 9:17am Recent Diagnosis Diabetes Urge incontinence History of cirrhosis Bradycardia Diverticulitis of large intestine with perforation Closed rib fracture Dyslipidemia History of SD (myocardial infarction) Allergic rhinitis Osteoarthritis Back pain Respiratory insufficiency Syncope Injury of jaw Low back pain Diverticulitis of large intestine with perforation Fall
[2016-07-09] MEDS ORDERED: POLY255P2 PO (12:49)
[2016-07-09] MEDS ORDERED: NYST15PO3 TOP (12:51)
[2016-07-09] MEDS ORDERED: POLY15DR57 BOTH EYES (12:54)
[2016-07-09] MEDS ORDERED: ACET-62 PO (12:54)
[2016-07-09] MEDS ORDERED: MAG360OR92 PO (12:54)
[2016-07-09] MEDS ORDERED: LORA0.5T2 PO (12:58)
[2016-07-09] MEDS ORDERED: GUAI600T94 PO (12:58)
[2016-07-09] MEDS ORDERED: DONE10TA30 PO (12:58)
[2016-07-09] MEDS ORDERED: BISA10SU8 RECTALLY (12:59)
[2016-07-09] MEDS ORDERED: TRAM50TA4 PO (12:59)
--- NOTE | 2016-07-09 13:25 | NUR ---
ACTIVITY PT IS VERY SENSITIVE TO BEING TOUCHED. SHE JUMPS ANYTIME SHE IS TOUCHED ANYWHERE. PT IS MOVING RT ARM & WRIST
[2016-07-09 13:29] LABS: BASOPHILS % (AUTO) 0.3 % (0-2); EOSINOPHILS # (AUTO) 0.1 T/MM3 (0-0.5); EOSINOPHILS % (AUTO) 0.5 % (0-4); HCT - HEMATOCRIT 45.7 % (36-46); HGB - HEMOGLOBIN 14.9 GM/DL (12-16); IMMATURE GRANULOCYTE # (AUTO) 0.03 T/MM3 (0.00-0.03); IMMATURE GRANULOCYTE % (AUTO) 0.2 % (0.0-0.5); LYMPHOCYTES # (AUTO) 1.5 T/MM3 (1-4.8); LYMPHOCYTES % (AUTO) 10.2 % (23-45); MEAN CORPUSCULAR HGB 28.8 UUG (26-34); MEAN CORPUSCULAR HGB CONC(MCHC 32.6 GM/DL (31-37); MEAN CORPUSCULAR VOLUME 88.4 UM3 (80-100); MEAN PLATELET VOLUME 11.5 UM3 (9.4-12.4); MONOCYTES # (AUTO) 1.2 T/MM3 (0-0.8); MONOCYTES % (AUTO) 7.9 % (0-9.0); NEUTROPHILS #(AUTO)-ABSOLUTE 11.8 T/MM3 (1.8-7.7); NEUTROPHILS % (AUTO) 80.9 % (33-66); RED BLOOD COUNT 5.17 M/MM3 (4.00-5.20); WBC - WHITE BLOOD COUNT 14.6 T/MM3 (4.5-11.0)
[2016-07-09 13:34] LABS: BLOOD, URINE NEGATIVE (NEGATIVE); COLOR,URINE YELLOW (YELLOW); LEUKOCYTE ESTERASE ,URINE 1+ (NEGATIVE); NITRITE,URINE POSITIVE (NEGATIVE); UROBILINOGEN,URINE 0.2 EU/DL (NORMAL)
[2016-07-09 13:38] LABS: ANION GAP 12 MEQ/L (5-15); BUN/CREATININE RATIO 14 RATIO (6-26); CALCIUM 9.8 MG/DL (8.4-10.2); CHLORIDE 104 MEQ/L (98-107); CO2 - CARBON DIOXIDE 28 MEQ/L (22-30); CREATININE 1.8 MG/DL (0.7-1.2); GLOMERULAR FILTRATION RATE 27; GLUCOSE 123 MG/DL (65-110); POTASSIUM 5.2 MEQ/L (3.6-5); SODIUM 144 MEQ/L (134-144)
[2016-07-09 13:50] LABS: SQUAMOUS EPITHELIAL CELL,UR NONE SEEN
[2016-07-09 13:52] LABS: RBC,URINE 0-1 /HPF (0-3); WBC CLUMPS,URINE FEW
[2016-07-09 13:53] LABS: BACTERIA,URINE 2+ (NEGATIVE)
--- NOTE | 2016-07-09 13:54 | DI ---
Indication: ITS.REASON: FALL, HEAD INJURY, ON PLAVIX PROCEDURE: CT HEAD W/O CONTRAST: Encounter: Initial Comparison: April 02, 2014 Technique: Axial CT images through the head were performed without contrast. Iterative Reconstruction dose reducing technique was utilized. FINDINGS: Interval development of a left occipital lobe infarct with encephalomalacia. Old infarct in the right thalamus. The ventricles are of normal size, shape, and configuration for the patient's age. There is no evidence of acute intracranial hemorrhage, midline displacement, or mass effect. There are extensive areas of low attenuation in the white matter which most likely represent changes of chronic microvascular ischemia. The CT attenuation of the brain parenchyma is otherwise normal within the cerebellum, brain stem, and cerebral hemispheres. The tympanic cavities and mastoid air cells are free of appreciable disease. There are no definite fractures of the skull base, calvarium, or visualized portion of the midface. IMPRESSION: 1. No CT evidence of acute traumatic intracranial injury. 2. 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 .
--- NOTE | 2016-07-09 13:56 | DI ---
Indication: ITS.REASON: FALL, NECK PAIN, PROCEDURE: CT CERVICAL SPINE W/O CONTRAST: Encounter: Initial Comparison: CT cervical spine dated April 02, 2014 Technique: Axial CT images through the cervical spine were performed without contrast. Coronal and sagittal reformatted images were also obtained. Automated Exposure Control and Iterative Reconstruction dose reducing techniques were utilized. FINDINGS: Motion artifact. The alignment of the cervical spine is unchanged. Multilevel degenerative changes are present. There is no evidence of acute fracture or subluxation of the cervical spine. The atlantoaxial articulation, dens, and upper cervical spine demonstrate no subluxation. The paraspinal soft tissues and spinal canal appear unremarkable. IMPRESSION: No acute traumatic abnormality of the cervical spine. .
--- NOTE | 2016-07-09 14:00 | NUR ---
BACK FROM CT
--- NOTE | 2016-07-09 14:15 | DI ---
Indication: ITS.REASON: FALL, PELVIC PAIN PROCEDURE: PELVIS 1-2 VIEW DEDICATED PELV: Encounter: Initial Comparison: None Findings: There is no acute fracture, dislocation or malalignment identified. Impression: No acute osseous abnormality. .
--- NOTE | 2016-07-09 14:16 | DI ---
Indication: ITS.REASON: FALL, WRIST PAIN PROCEDURE: WRIST RIGHT 2 VIEW: Encounter: Initial Comparison: None Findings: There is a spiral minimally displaced fracture of the fourth metacarpal. This may extend into the carpometacarpal joint. Severe degenerative change at the first carpometacarpal joint. No additional acute fracture or dislocation seen. Impression: Closed posttraumatic fourth metacarpal fracture. .
--- NOTE | 2016-07-09 14:23 | DI ---
Indication: ITS.REASON: FALL, SHOULDER PAIN PROCEDURE: SHOULDER RIGHT 2-3 VIEWS: Encounter: Initial Comparison: Chest x-rays dated April 09, 2014, April 02, 2014 and January 08, 2014 Findings: There is no acute fracture, dislocation or malalignment identified. Mild degenerative change in the acromioclavicular and glenohumeral joints. 1.5 cm pulmonary nodule seen projecting over the right lower lobe this is not definitely visualized on any of the prior chest x-rays. Impression: 1. No acute osseous abnormality. 2. 1.5 cm right lower lobe pulmonary nodule. Recommend a noncontrast chest CT for further evaluation which can be performed on a nonemergent basis. .
--- NOTE | 2016-07-09 14:40 | NUR ---
LAB HERE TO DRAW BLOOD CULTURES
--- NOTE | 2016-07-09 14:47 | NUR ---
REPORT TO MORALES RN
--- OUTSIDE RECORDS SUMMARY | 2016-07-09 14:59 | XMS REPORT | Continuity of Care Document ---
Author Author [facility] Organization [facility] Address Unknown Phone Unavailable Care Team Providers Care Sorter Operator Name Role Phone Yuval Hoang Primary Care Physician [phone] Source Comments Some departments are not documenting in the electronic medical record. If you do not see the information that you expected, contact Release of Information in the Health Information Management department at [phone] for further assistance in locating additional records.[facility] Active Allergies and Adverse Reactions Allergen Noted Date Severity Reactions Comments Aspartame 09/16/2010 UNKNOWN Contrast Dye Iv, Iodine 09/16/2010 RASH, ITCHING Containing Gluten 09/16/2010 SEE COMMENTS Celiac disease Keflex 09/16/2010 NAUSEA AND VOMITING Lactose 09/16/2010 NAUSEA AND VOMITING Merthiolate (Thimerosal) 09/16/2010 UNKNOWN Penicillins 09/16/2010 SEE COMMENTS Bruising from IM injection Veezpdl-Vgc-Zwx Reductase 09/16/2010 UNKNOWN Inhibitors Current Medications Prescription [...]
[2016-07-09] MEDS ORDERED: LEVOFLOXACIN 500 mg IVPB 500 MG in D5W 100 ML IV ONE (15:00)
--- OUTSIDE RECORDS SUMMARY | 2016-07-09 15:00 | XMS REPORT | Continuity of Care Document ---
Author Author [facility] Organization [facility] Address Unknown Phone Unavailable Support Name Relationship Address Phone LEVAR DE SANTIAGO MD Caregiver [address] [address] EDUARD CLARK MD Caregiver [address] [place], [place] [phone] LAWTONDARLEEN Next Of Kin [address] [place], [place] [id number] Insurance Providers Payer Name Policy Number Subscriber Name Relationship Medicare [id number] Aurelia Duran 18 Self [facility] [id number] Aurelia Duran 16 Self Advance Directives Directive Response Recorded Date/Time Advanced Directives Type Living Will 10/13/13 1:33pm Ordered Resuscitation Status Full Code, unverified 02/19/14 3:20am Chief Complaint and Reason for Visit Chief Complaint Chest Pain Reason for Visit [id number] Dyspnea on exertion Chest pain on exertion [...] PO TWICE A DAY 08/05/13 Active Fish Oil/[place]-3 Fatty Acids 1 Cap PO TWICE A [...] A DAY 02/19/14 Active Sodium Chloride 1 Deweese NS NEEDED 02/19/14 Active Clopidogrel Bisulfate 75 [...] Discharge Date 01/12/14 6:00pm Disposition 02 TO [facility] Condition at Discharge Stable Instructions/Education Provided [...] Hx Pneumococcal Vaccination Y GIVEN 01/02/14 AT [facility] Historical Hx Tetanus, Diptheria, Pertussis N UNKNOWN Historical Hx Influenza Vaccination Y JANUARY 2014 Historical Hx Tetanus Diptheria N UNKNOWN Historical Hx Tetanus, Diptheria, Pertussis N UNKNOWN Historical Hx Tetanus Toxoid Vaccination N UNKNOWN Historical Vital Signs Acute Vital Signs Vital Response Date/Time Temperature (Fahrenheit) 96.7 deg F (96.8 - 99.1) Temperature (Calculated Celsius) 35.25318 degrees C (36.0 - 37.3) Temperature Source [...] 01, 2014 9:21pm LAB TEST FORM REQUEST [id number] - Lipase January 08, 2014 12:24pm 136 [...] COMMENT NURSE WILL CALL WHEN PT HERE CV-Vfr-S-Type Natriuretic Peptide January 08, 2014 12:24pm 133 [...] Has specimen been collected/obtained? Y Urine Specific [place] January 08, 2014 3:05pm 1.010 L - [...] 5 DAYS Name: AURELIA DURAN Unit #: [id number] : 1930 Sex: F DISCHARGE SUMMARY Admit Date: 01/10/14 Report #: [id number] General Date Date DATE: 01/12/14 TIME: 14:46 [...] old woman who was recently admitted to [facility] for CHF exacerbation. She was discharged on [...] home from the hospital. She presented to [facility] ED for evaluation. There, lab and imaging [...] CM did get them set up with [facility]. She was instructed to f/u with [...] 5 Mg Tab.ds.pk Po Daily #1 Prov:OSCAR MCCORMIKC DO 01/12/14 Enalapril Maleate 10 Mg Tablet1 [...] Mg PO ACB 10/13/13 Gabapentin 300 Mg Pnvdull704 Mg PO BID 10/13/13 Furosemide (Lasix)40 Mg Drufmi24 Mg PO DAILY 10/13/13 Loratadine 10 Mg Nirweu91 Mg PO DAILY 08/05/13 Fish Oil/[place]-3 Fatty Acids (Fish Oil 1,000 Mg Softgel)1 Cap Capsule1 Cap PO BID 08/05/13 Calcium Carbonate (Calcium 500)1 Tab Tablet1 Tab PO BID 08/05/13 Antiox#10/Om3/Dha/Epa/Lut/Zeax (I-Caps With Lutein-[place] 3 Sfg)1 Each Capsule1 Each PO DAILY 08/05/13 Aspirin 81 Mg Vpbbie11 Mg PO DAILY 08/05/13 Red Yeast Rice 600 Mg Tablet1,200 Mg PO BID 08/05/13 Magnesium Oxide (Magnesium)250 Mg Wplkhr784 Mg PO DAILY 08/05/13 Discharge Disposition stable Copies To 1: EDUARD CLARK MD, CARRIE DO Jan 12, 2014 14:46 Procedures Procedure Status Date Provider(s) ROUTINE VENIPUNCTURE completed 02/12/14 METABOLIC PANEL TOTAL CA completed 02/12/14 COMPLETE CBC W/AUTO DIFF WBC completed 02/12/14 ELECTROCARDIOGRAM TRACING completed 02/12/14 L HRT ARTERY/VENTRICLE ANGIO completed 02/12/14 DASHA DE SANTIAGO MD [id number] ITEM OR SERVICE completed 02/12/14876633"INJECTION, DIPHENHYDRAMINE HCL, UP TO 50 MG" completed 02/12/14904739"INJECTION, HEPARIN SODIUM, PER 1000 UNITS" completed 02/12/14579681"INJECTION, HEPARIN SODIUM, PER 1000 UNITS" completed 02/12/14672373"INJECTION, MIDAZOLAM HYDROCHLORIDE, PER 1 MG" completed 02/12/14830748"INJECTION, METHYLPREDNISOLONE SODIUM SUCCINATE, UP TO completed 003"INJECTION, FENTANYL CITRATE, 0.1 MG" completed 02/12/14189832WBBAVZDNWZGF DRUGS completed 02/12/14594036"INFUSION, NORMAL SALINE SOLUTION , 1000 CC" completed 02/12/14042976"LOW OSMOLAR CONTRAST MATERIAL, 300-399 MG/ML IODINE C completed Encounters Encounter Location Date/Time Departed [facility] 02/19/14 5:57am Departed [facility] 02/12/14 8:06am Registered Clinic [facility] 01/29/14 9:54am Discharged Inpatient [facility] 01/10/14 9:17am Discharged Inpatient [facility] 01/03/14 10:31am Registered Clinic [facility] 01/01/14 4:18pm
--- OUTSIDE RECORDS SUMMARY | 2016-07-09 15:00 | XMS REPORT | Continuity of Care Document ---
Author Author [facility] Organization [facility] Address Unknown Phone Unavailable Allergies Medications Problems [...] Status Pt. Type Provider Facility Loc./Unit Complaint [id number] 05/08/2012 05:57:00 2012 10:55:00 DIS Outpatient Jose Hightower MD [facility]
--- OUTSIDE RECORDS SUMMARY | 2016-07-09 15:00 | XMS REPORT | Continuity of Care Document ---
Author Author [facility] Organization [facility] Address Unknown Phone Unavailable Support Name Relationship Address Phone DASHA DE SANTIAGO MD Caregiver [address] [place] [place] [phone] EDUARD CLARK MD Caregiver [address] [phone] DARLEEN LAWTON Next Of Kin [address] [place] [id number] Insurance Providers Payer Name Policy Number Subscriber Name Relationship Medicare [id number] Aurelia Duran 18 Self [facility] [id number] Aurelia Duran 18 Self Advance Directives Directive Response Recorded Date/Time Advanced Directives Type Living Will 10/13/13 1:33pm Ordered Resuscitation Status Full Code, unverified 02/12/14 8:44am Resuscitation Documents on File No 02/12/14 8:30am Chief Complaint and Reason for Visit Chief Complaint Chest Pain Reason for Visit [id number] Dyspnea on exertion Chest pain on exertion [...] PO TWICE A DAY 08/05/13 Active Fish Oil/[place]-3 Fatty Acids 1 Cap PO TWICE A [...] Discharge Date 01/12/14 6:00pm Disposition 02 TO [facility] Condition at Discharge Stable Instructions/Education Provided DI [...] F (96.8 - 99.1) Temperature (Calculated Celsius) 35.54260 degrees C (36.0 - 37.3) Temperature Source [...] 01, 2014 9:21pm LAB TEST FORM REQUEST [id number] - Lipase January 08, 2014 12:24pm 136 [...] COMMENT NURSE WILL CALL WHEN PT HERE MO-Upc-Y-Type Natriuretic Peptide January 08, 2014 12:24pm 133 [...] Has specimen been collected/obtained? Y Urine Specific [place] January 08, 2014 3:05pm 1.010 L - [...] 5 DAYS Name: AURELIA DURAN Unit #: [id number] : 1930 Sex: F DISCHARGE SUMMARY Admit Date: 01/10/14 Report #: [id number] General Date Date DATE: 01/12/14 TIME: 14:46 [...] CM did get them set up with [facility]. She was instructed to f/u with [...] Mg PO ACB 10/13/13 Gabapentin 300 Mg Azvsjlg534 Mg PO BID 10/13/13 Furosemide (Lasix)40 Mg Dcsoam63 Mg PO DAILY 10/13/13 Loratadine 10 Mg Wmmvlx29 Mg PO DAILY 08/05/13 Fish Oil/[place]-3 Fatty Acids (Fish Oil 1,000 Mg Softgel)1 Cap Capsule1 Cap PO BID 08/05/13 Calcium Carbonate (Calcium 500)1 Tab Tablet1 Tab PO BID 08/05/13 Antiox#10/Om3/Dha/Epa/Lut/Zeax (I-Caps With Lutein-[place] 3 Sfg)1 Each Capsule1 Each PO DAILY 08/05/13 Aspirin 81 Mg Fbitfz55 Mg PO DAILY 08/05/13 Red Yeast Rice 600 Mg Tablet1,200 Mg PO BID 08/05/13 Magnesium Oxide (Magnesium)250 Mg Eneiei275 Mg PO DAILY 08/05/13 Discharge Disposition stable Copies To 1: EDUARD CLARK MD, CARRIE DO Jan 12, 2014 14:46 Procedures No known history of procedures. Encounters Encounter Location Date/Time Departed [facility] 02/12/14 8:06am Registered [facility] 01/29/14 9:54am Discharged Inpatient [facility] 01/10/14 9:17am Discharged Inpatient [facility] 01/03/14 10:31am Registered [facility] 01/01/14 4:18pm
--- OUTSIDE RECORDS SUMMARY | 2016-07-09 15:00 | XMS REPORT | Continuity of Care Document ---
Author Author [facility] Organization [facility] Address Unknown Phone Unavailable Support Name Relationship Address Phone JES SIEGEL MD Caregiver [address] [place] [address] [place] [address] PEDRO LIU MD Caregiver [address] [place] [address] [place] [phone] JUAN CLARK MD Caregiver [address] [place] [phone] DARLEEN LAWTON Next Of Kin [address] [place] [address] Insurance Providers Payer Name Policy Number Subscriber Name Relationship Medicare [id number] Aurelia Duran 18 Self [facility] [id number] Aurelia Duran 18 Self Advance Directives Directive [...] PO TWICE A DAY 08/05/13 Active Fish Oil/[place]-3 Fatty Acids 1 Cap PO TWICE A [...] of your legs. 3.During office hours, call [phone] 4. After hours, please call [facility] at [phone], and have the bindery cutter operator page your Surgeon IN THE EVENT [...] Hx Influenza Vaccination Y GIVEN 01[place]11[place]10 [place] [facility] Historical Hx Pneumococcal Vaccination Y GIVEN 01/02/14 AT [facility] Historical Hx Tetanus, Diptheria, Pertussis N UNKNOWN Historical Hx Influenza Vaccination Y GIVEN 01/11/10 [place] [facility] Historical Hx Tetanus Diptheria N UNKNOWN Historical [...] F (96.8 - 99.1) Temperature (Calculated Celsius) 35.20035 degrees C (36.0 - 37.3) Temperature Source [...] 01, 2014 9:21pm LAB TEST FORM REQUEST [id number] - Lipase January 08, 2014 12:24pm 136 [...] 12, 2014 5:29am 6.0 % N 0-9.0 ZF-Zxl-G-Type Natriuretic Peptide January 08, 2014 12:24pm 133 [...] Has specimen been collected/obtained? Y Urine Specific [address] January 08, 2014 3:05pm 1.010 L - [...] 4 DAYS Name: AURELIA DURAN Unit #: [id number] : 1930 Sex: F Loc / Svc: ED DOS: 01/08/14 Signed Report #: [id number] DIAGNOSTIC IMAGING REPORT TYPE OF EXAM: CHEST, [...] procedures. Encounters Encounter Location Date/Time Discharged Inpatient [facility] 01/10/14 9:17am Discharged Inpatient [facility] 01/03/14 10:31am Registered Clinic [facility] 01/01/14 4:18pm Registered [facility] 11/06/13 8:54am Recent Diagnosis Dyspnea on exertion COPD exacerbation Chest pain on exertion Pneumonia Dyspnea on exertion Diastolic CHF, chronic Obesity (BMI 30.0-34.9) Chest pain as manifestation of blood transfusion reaction HTN (hypertension) Elevated serum creatinine Hyponatremia
--- OUTSIDE RECORDS SUMMARY | 2016-07-09 15:01 | XMS REPORT | Continuity of Care Document ---
Author Author [facility] Organization [facility] Address Unknown Phone Unavailable Support Name Relationship Address Phone EDUARD CLARK MD Caregiver [address] [place] [place] [phone] SONDRA BERGERON MD Caregiver [address] [place] [place] [address] DARLEEN LAWTON Next Of Kin Unknown [phone] Insurance Providers Payer Name Policy Number Subscriber Name Relationship Medicare [id number] Aurelia Duran 16 Self [facility] [id number] MoultonAurelia 18 Self Advance Directives Directive Response Recorded [...] PO TWICE A DAY 08/05/13 Active Fish Oil/[place]-3 Fatty Acids 1 Cap PO TWICE A [...] F (96.8 - 99.1) Temperature (Calculated Celsius) 36.62894 degrees C (36.0 - 37.3) Pulse Rate [...] Has specimen been collected/obtained? Y Urine Specific [place] August 05, 2013 1:55pm <=1.005 L - [...] Encounters Encounter Location Date/Time Departed Emergency Room [facility] 10/13/13 1:28pm Departed Emergency Room [facility] 08/05/13 12:39pm Recent Diagnosis
--- OUTSIDE RECORDS SUMMARY | 2016-07-09 15:01 | XMS REPORT | Continuity of Care Document ---
Author Author [facility] Organization [facility] Address Unknown Phone Unavailable Support Name Relationship Address Phone JACE OSCAR DO Caregiver [address] [place] [address] EDUARD CLARK MD Caregiver [address] [phone] DARLEEN LAWTON Next Of Kin Unknown [phone] Insurance Providers Payer Name Policy Number Subscriber Name Relationship Medicare [id number] RogerAurelia 18 Self [facility] [id number] Aurelia Duran 18 Self Advance Directives Directive [...] PO TWICE A DAY 08/05/13 Active Fish Oil/[place]-3 Fatty Acids 1 Cap PO TWICE A [...] AT 1:00PM FOR ECHOCARDIOGRAM. CHECK IN AT [facility] REGISTRATION ON 01/15/14 AT 8:30AM FOR A [...] BECOMES DISLODGED OR WET Durable Medical Equipment: [employer] [phone] Notify Physician If: CALL YOUR SURGEON IF: [...] and call Dr. Camarillo with the result [phone]. Condition at time of discharge: Good Plan of Care Discharge Date 01/03/14 3:55pm Disposition 01 DISCHARGED HOME, SELF-CARE Instructions/Education Provided [facility] Congestive Heart Failure Prescriptions See Medications Section Functional Status Query Response Date Recorded Mental Status Alert October 13, 2013 4:56pm Allergies, Adverse Reactions, Alerts Allergen Type Severity Reaction Status Last Updated iodine Allergy Unknown Active 01/02/14 Penicillin Allergy Unknown Active 01/02/14 Cephalexin Allergy Intermediate Active 01/02/14 Immunizations Name Given Type Hx Influenza Vaccination No Historical Hx Pneumococcal Vaccination Y GIVEN 01/02/14 AT [facility] Historical Hx Influenza Vaccination No Historical Vital Signs Acute Vital Signs Vital Response Date/Time Temperature (Fahrenheit) 98.9 deg F (96.8 - 99.1) Temperature (Calculated Celsius) 37.62246 degrees C (36.0 - 37.3) Temperature Source [...] 02, 2014 5:13am 10.4 % H 0-9.0 AY-The-F-Type Natriuretic Peptide January 02, 2014 5:13am 244 [...] REFLEXHas specimen been collected/obtained? Y Urine Specific [place] January 01, 2014 8:10pm <=1.005 L - [...] DN 4.5-11.0 Name: AURELIA DURAN Unit #: [id number] : 1930 Sex: F DISCHARGE SUMMARY Admit Date: 01/03/14 Report #: [id number] General Date Date DATE: 01/03/14 TIME: 14:50 [...] 83-year-old female who was brought to the [facility] to see Dr. Min for [...] TAB Prov:OSCAR BROWN DO 01/03/14 Hydrocodone Bit/Acetaminophen ([place] 5/325 Tablet)1 Tab Tablet1-2 Tab PO Q4-6H PRN (PAIN) #20 TAB Prov:SIA CARBONE 10/13/13 Reported Medications Tramadol Hcl 50 Mg Etxvze14 Mg PO PRN 10/13/13 Tolterodine Tartrate (Detrol La)4 Mg Cap.sr.24h4 Mg PO DAILY 10/13/13 Budesonide/Formoterol Fumarate (Symbicort 160-4.5 Mcg Inhaler)10.2 Gm Hfa.aer.ad10.2 Gm IH DAILY 10/13/13 Potassium Chloride 10 Meq Capsule.sa10 Meq PO BID 10/13/13 Iron Ps Cmplx/Vit B12/Fa (Poly-Iron 150 Forte Capsule)1 Udcap Capsule1 Udcap PO BID 10/13/13 Omeprazole (Prilosec)40 Mg Capsule.dr40 Mg PO ACB 10/13/13 Gabapentin 300 Mg Urxufbp186 Mg PO BID 10/13/13 Furosemide (Lasix)40 Mg Wxmvng28 Mg PO DAILY 10/13/13 Loratadine 10 Mg Voroas32 Mg PO DAILY 08/05/13 Fish Oil/[place]-3 Fatty Acids (Fish Oil 1,000 Mg Softgel)1 Cap Capsule1 Cap PO BID 08/05/13 Calcium Carbonate (Calcium 500)1 Tab Tablet1 Tab PO BID 08/05/13 Antiox#10/Om3/Dha/Epa/Lut/Zeax (I-Caps With Lutein-[place] 3 Sfg)1 Each Capsule1 Each PO DAILY 08/05/13 Aspirin 81 Mg Pueumw07 Mg PO DAILY 08/05/13 Red Yeast Rice 600 Mg Tablet1,200 Mg PO BID 08/05/13 Magnesium Oxide (Magnesium)250 Mg Iagkcp234 Mg PO DAILY 08/05/13 Discontinued Reported Medications [...] procedures. Encounters Encounter Location Date/Time Discharged Inpatient [facility] 01/03/14 10:31am Registered Clinic [facility] 01/01/14 4:18pm Registered Clinic [facility] 11/06/13 8:54am Departed Emergency Room [facility] 10/13/13 1:28pm Recent Diagnosis CHF exacerbation A-fib Asthma with COPD CAD (coronary artery disease) Diabetes GERD (gastroesophageal reflux disease) Insomnia Urge incontinence Sleep apnea Glaucoma Depression History of cirrhosis
--- OUTSIDE RECORDS SUMMARY | 2016-07-09 15:01 | XMS REPORT | Continuity of Care Document ---
Author Author [facility] Organization [facility] Address Unknown Phone Unavailable Support Name Relationship Address Phone MAGNUS BACK MD Caregiver [address] [place] [address] [address] [place] [phone] ОЛЬГА JOHNSON FACS, MD Caregiver [address] [place] [address] [address] [place] [phone] PEDRO LIU MD Caregiver [address] [place] [address] [place] [phone] EDUARD CLARK MD Caregiver [address] [place] [address] [place] [phone] DARLEEN LATWON Next Of Kin [address] [place] [address] Insurance Providers Payer Name Policy Number Subscriber Name Relationship Medicare [id number] Aurelia Duran 16 Self [facility] [id number] Aurelia Duran 16 Self Advance Directives Directive [...] perforation Closed rib fracture Dyslipidemia History of LA (myocardial infarction) Allergic rhinitis Osteoarthritis Back pain [...] ~04/02/2014 Active Dyslipidemia Unknown Active History of LA (myocardial infarction) Unknown Active Allergic rhinitis Unknown [...] PO TWICE A DAY 08/05/13 Active Fish Oil/Cokato-3 Fatty Acids 1 Cap PO TWICE A [...] A DAY 02/19/14 Active Sodium Chloride 1 [place] NS NEEDED 02/19/14 Active Clopidogrel Bisulfate 75 [...] have difficulty breathing. During office hours, call [phone]. After hours, please call [facility] at [phone] and have the cbx operator page Dr. Pretty or the covering surgeon. *In the event of an emergency, seek medical care at the nearest emergency room.* Condition at time of discharge: Good Plan of Care Discharge Date 04/11/14 4:35pm Disposition 06 HOME HEALTH SERVICE Instructions/Education Provided [facility] Congestive Heart Failure DI for Diverticulitis Prescriptions [...] Hx Pneumococcal Vaccination Y GIVEN 01/02/14 AT [facility] Historical Hx Tetanus, Diptheria, Pertussis N UNKNOWN Historical Hx Influenza Vaccination Y JANUARY 2014 Historical Hx Tetanus Diptheria N UNKNOWN Historical Hx Tetanus, Diptheria, Pertussis N UNKNOWN Historical Hx Tetanus Toxoid Vaccination N UNKNOWN Historical Vital Signs Acute Vital Signs Vital Response Date/Time Temperature (Fahrenheit) 96.7 deg F (96.8 - 99.1) Temperature (Calculated Celsius) 35.12984 degrees C (36.0 - 37.3) Temperature Source [...] 01, 2014 9:21pm LAB TEST FORM REQUEST [id number] - Large Platelets April 08, 2014 4:37am [...] 10, 2014 5:05am 13.4 % H 0-9.0 GJ-Wxs-L-Type Natriuretic Peptide April 02, 2014 8:46am 438 [...] Has specimen been collected/obtained? Y Urine Specific [place] April 02, 2014 9:05am 1.010 L - [...] 5 DAYS Name: AURELIA DURAN Unit #: [id number] : 1930 Sex: F DISCHARGE SUMMARY Admit Date: 04/02/14 Report #: [id number] General Date Date DATE: 04/11/14 TIME: 14:18 Attending Physician Magnus Back MD Admitting Physician Magnus Back MD Consulting Physician [facility] Dr Johnson Admitting Diagnosis (1) Syncope Status: Acute (2) Diverticulitis of large intestine with perforation Status: Acute (3) Respiratory insufficiency Status: Acute Assessment & Plan: present on admission (4) Closed rib fracture Onset Date: ~ 04/02/2014 Status: Acute Assessment & Plan: [id number] rib (5) Bradycardia Status: Acute Assessment & [...] Urge incontinence Status: Chronic (22) History of LA (myocardial infarction) Status: Chronic (23) Dyslipidemia Status: [...] 84 year old female who presented to [facility] ED today, 04/02/14, via EMS for severe low back pain after falling at home. She reports that she remembers going to bed last night and then woke up this morning on the floor. She pushed her emergency button to alert EMS who responded and transported her to [facility] ED. Upon arrival to the ED she [...] ~ 04/02/2014 Status: Acute Assessment & Plan: [id number] rib (5) Bradycardia Status: Resolved Assessment & [...] (18) Diabetes Status: Chronic (19) History of LA (myocardial infarction) Status: Chronic (20) Dyslipidemia Status: Chronic DVT Prophylaxis: SCD'S GI Prophylaxis: Protonix Code Status Full Code Home Meds Active Scripts Polyethylene Glycol 3350 17 Gm Powd.pack1 Packet PO DAILY 30 Days Prov:OSCAR MCCORMICK DO 04/11/14 Ciprofloxacin HCl (Cipro)500 Mg Dkleip878 Mg PO Q12HR 10 Days Prov:OSCAR MCCORMICK DO 04/11/14 Hydrocodone/Acetaminophen (Hydrocodon-Acetaminophen 5-325)1 Tab Tablet1 Tab PO Q4H PRN (PAIN) #30 TAB Prov:OSCAR MCCORMICK DO 04/11/14 Metronidazole (Flagyl)500 Mg Hvnwsj504 Mg PO Q12HR 10 Days Prov:OSCAR MCCORMICK DO 04/11/14 Clopidogrel Bisulfate (Plavix)75 Mg Skgwyg59 Mg PO DAILY #30 Ref 11 Prov:LEVAR DE SANTIAGO MD 02/19/14 Potassium Chloride 20 Meq Tablet.er20 Meq PO BIDWM #0 TAB Take 1 tablet, by mouth, two times a day with meals. Prov:DASHA DE SANTIAGO MD 02/12/14 Enalapril Maleate 10 Mg Tablet1 Tab PO BID #60 TAB Prov:OSCAR MCCORMICK DO 01/03/14 Reported Medications Sodium Chloride (Saline Nasal [place])30 Ml Spray1 [place] NS PRN 02/19/14 Guaifenesin 400 Mg Tablet1 [...] Mg PO ACB 10/13/13 Gabapentin 300 Mg Nhxgefs055 Mg PO BID 10/13/13 Furosemide (Lasix)40 Mg Kypfvc28 Mg PO DAILY RESTART ON FEB 14. 10/13/13 Loratadine 10 Mg Ysgrax62 Mg PO DAILY 08/05/13 Fish Oil/Cokato-3 Fatty Acids (Fish Oil 1,000 Mg Softgel)1 Cap Capsule1 Cap PO BID 08/05/13 Calcium Carbonate (Calcium 500)1 Tab Tablet1 Tab PO BID 08/05/13 Antiox#10/Om3/Dha/Epa/Lut/Zeax (I-Caps With Lutein-Cokato 3 Sfg)1 Each Capsule1 Each PO DAILY 08/05/13 Aspirin 81 Mg Trhqvn55 Mg PO DAILY 08/05/13 Red Yeast Rice 600 Mg Tablet1,200 Mg PO BID 08/05/13 Magnesium Oxide (Magnesium)250 Mg Bsuciz675 Mg PO DAILY 08/05/13 Discharge Disposition stable [...] ANGIO completed 02/12/14 DASHA DE SANTIAGO MD [id number] ITEM OR SERVICE completed 02/12/14024315"INJECTION, DIPHENHYDRAMINE HCL, UP TO 50 MG" completed 02/12/14"INJECTION, HEPARIN SODIUM, PER 1000 UNITS" completed 02/12/14"INJECTION, HEPARIN SODIUM, PER 1000 UNITS" completed 02/12/14"INJECTION, MIDAZOLAM HYDROCHLORIDE, PER 1 MG" completed 02/12/14"INJECTION, METHYLPREDNISOLONE SODIUM SUCCINATE, UP TO completed "INJECTION, FENTANYL CITRATE, 0.1 MG" completed 02/12/[id number] DRUGS completed 02/12/14"INFUSION, NORMAL SALINE SOLUTION , 1000 CC" completed 02/12/14"LOW OSMOLAR CONTRAST MATERIAL, 300-399 MG/ML IODINE C completed ROUTINE VENIPUNCTURE completed 02/19/14 METABOLIC PANEL TOTAL CA completed 02/19/14 BL SMEAR W/DIFF WBC COUNT completed 02/19/14 COMPLETE CBC AUTOMATED completed 02/19/14 [id number] ITEM OR SERVICE completed 02/19/14 [id number] ITEM OR SERVICE completed 02/19/14 [id number] ITEM OR SERVICE completed 02/19/14 [id number] ITEM OR SERVICE completed 02/19/14117374"CLOSURE DEVICE, VASCULAR (IMPLANTABLE/INSERTABLE)" completed 02/19/14328384MMIGF WIRE completed 02/19/14"STENT, COATED/COVERED, WITH DELIVERY SYSTEM" completed 02/19/14"CATHETER, GUIDING (MAY INCLUDE INFUSION/PERFUSION CAP completed [id number] THAN PEEL-AWAY completed 02/19/14 completed 02/19/14 LEVAR DE SANTIAGO MD [id number]"INJECTION, HEPARIN SODIUM, PER 1000 UNITS" completed 02/19/14"INJECTION, HEPARIN SODIUM, PER 1000 UNITS" completed 02/19/14"INJECTION, MIDAZOLAM HYDROCHLORIDE, PER 1 MG" completed 02/19/14"INJECTION, FENTANYL CITRATE, 0.1 MG" completed 02/19/14"INFUSION, NORMAL SALINE SOLUTION , 1000 CC" completed 02/19/14"LOW OSMOLAR CONTRAST MATERIAL, 300-399 MG/ML IODINE C completed Encounters Encounter Location Date/Time Discharged Inpatient [facility] 04/02/14 8:47am Departed Clinic [facility] 02/19/14 5:57am Departed Clinic [facility] 02/12/14 8:06am Registered Clinic [facility] 01/29/14 9:54am Discharged Inpatient [facility] 01/10/14 9:17am Recent Diagnosis Diabetes Urge incontinence History of cirrhosis Bradycardia Diverticulitis of large intestine with perforation Closed rib fracture Dyslipidemia History of LA (myocardial infarction) Allergic rhinitis Osteoarthritis Back pain Respiratory insufficiency Syncope Injury of jaw Low back pain Diverticulitis of large intestine with perforation Fall
--- NOTE | 2016-07-09 15:05 | NUR ---
LAB HERE FOR SECOND BC
--- NOTE | 2016-07-09 15:15 | NUR ---
TRANSPORTED PER CART TO [facility] ACCOMPANIED BY ELIAS MONTEMAYOR. CARE ASSUMED BY MORALES MONTEMAYOR
--- NOTE | 2016-07-09 15:15 | NUR ---
ADMIT PT TO [facility] PER CART AFTER REPORT RECEIVED FROM ALBINA TANNER. PT ALERT AND ORIENTED TO NAME AND "HOSPITAL." PT RATES PAIN TO RIGHT WRIST 5/10 BUT DENIES THE NEED FOR PAIN MEDICATION AT THIS TIME. PERIPHERAL VASCULAR STATUS TO RUE INTACT-CAP REFILL <3 SECONDS TO FINGERNAILS, PT REPORTS ABILITY TO FEEL, FINGERS PINK. VITALS OBTAINED AND STABLE CHARTED. WILL CONTINUE TO MONITOR.
[2016-07-09 15:29] VITALS: PULSE 75; RESP 16; TEMP 96.7; O2SAT 99
--- NOTE | 2016-07-09 15:31 | HPPDOC ---
NITA CRUZ V ECONOMIC FORECASTER 07/09/16 1521: HPI - Adult Date DATE: 07/09/16 TIME: 15:18 General Chief Complaint: sepsis, UTI, encephalopathy, bradycardia History of Present Illness Patient is an 86-year-old female who currently resides at [facility]. It is reported that she was sitting on the toilet this morning and had an unwitnessed fall. [facility] staff reported that patient allegedly struck her head, however, event was unwitnessed. Patient was brought to the emergency room today for further evaluation. Lab for studies were obtained. Patient was found have an elevated white count at 14.6, hemoglobin 14.9, hematocrit 45.7, platelet count 243, neutrophils 80.9. Sodium is 144, potassium 5.2, BUN 26, creatinine 1.8. Baseline creatinine is found to be 1.0 (4 months ago). Gluecose is 123. Troponin less than 0.012, venous lactate 2.2. Urinalysis was obtained showing specific gravity of 1.010, positive nitrates, 1+ leukocyte esterase, 2+ bacteria. Patient is afebrile at 96.8. Patient has been intermittently bradycardic and at one point. Heart rate was in the 40s. Twelve-lead EKG is obtained showing sinus bradycardia. CT scan of the C-spine was negative for acute trauma, CT scan of the head did show a subacute left occipital lobe infarct. X-ray of pelvic and shoulders were both negative. X-ray of the right wrist did indicate a 4th metacarpal fracture of the midshaft. Patient was placed in or the Splint for support. The hospitalist services were contacted and accepted patient for inpatient admission for further evaluation and treatment. A shunt is seen on initial examination. She is lying in the bed. She is alert, however, is confused. She is able to identify her son in the room, however, is unclear of her location or the year. Son reports that she does have some "dementia". However, she has been more confused over the last several days. He reports that she usually is confused when she has a acute infectious process. Patient is unable to participate in review of systems or answer specific questions. All information is obtained from her son at the bedside. We did discuss advanced directives and son does verify that patient is a do not resuscitate. Past Medical History Past Medical History Atrial fibrillation. COPD Asthma Chronic diastolic heart failure Coronary artery disease with history of [place] Dyslipidemia Hypertension Depression Glaucoma with blindness Osteoarthritis Sleep Apnea Surgical History Patient's Surgical History: Back surgery Cholecystectomy Cardiac stent T&A Current Medications Home Meds Reported Medications Tramadol HCl (Tramadol HCl) 50 Mg Tablet, 25 MG PO HS 07/09/16 Bisacodyl (Bisacodyl) 10 Mg Supp.rect, 10 MG RECTALLY DAILY Y for CONSTIPATION 07/09/16 Guaifenesin (Guaifenesin ER) 600 Mg Tab.er.12h, 600 MG PO Q12H Y for CONGESTION 07/09/16 Lorazepam (Lorazepam) 0.5 Mg Tablet, 0.5 MG PO Q6H Y for ANXIETY/AGITATION 07/09/16 Donepezil HCl (Donepezil HCl) 10 Mg Tablet, 10 MG PO HS 07/09/16 Acetaminophen (Acetaminophen) 500 Mg Tablet, 1000 MG PO Q4-6H Y for PAIN 07/09/16 Polyvinyl Alcohol (Artificial Tears) 15 Ml Drops, 1 DROP BOTH EYES QID Y for DRY EYES 07/09/16 Mag Hydrox/Al Hydrox/Simeth (Alum-Mag Hydroxide-Simeth Liq) 360 Ml Oral.susp, 30 ML PO Q4H Y for EPIGASTRIC DISTRESS 07/09/16 Nystatin (Nyamyc) 15 Gm Powder, 1 APPLIC TOP BID Y for PRN ORDERS APPLY UNDER ABD FOLD AND/OR GROIN BID PRN 07/09/16 Polyethylene Glycol 3350 (Polyethylene Glycol 3350) 255 Gm Powder, 17 GM PO DAILY Y for CONSTIPATION 07/09/16 Potassium Chloride (Potassium Chloride) 20 Meq Tab.er.prt, 20 MEQ PO BID 07/09/16 Clopidogrel Bisulfate (Clopidogrel) 75 Mg Tablet, 75 MG PO DAILY 07/09/16 Enalapril Maleate (Enalapril Maleate) 10 Mg Tablet, 10 MG PO BID 07/09/16 Gabapentin (Gabapentin) 600 Mg Tablet, 600 MG PO BID 07/09/16 Metoprolol Tartrate (Metoprolol Tartrate) 25 Mg Tablet, 25 MG PO BID 07/09/16 Budesonide/Formoterol Fumarate (Symbicort 160-4.5 Mcg Inhaler) 10.2 Gm Hfa.aer.ad, 2 PUFF INH BID 07/09/16 Calcium Carbonate/Vitamin D3 (Calcium + Vitamin D Tablet) 1 Each Tablet, 1 TAB PO DAILY 11/23/14 Albuterol Sulfate (Proair HFA 90 mcg/actuation) 8.5 Gm Hfa.aer.ad, 2 PUFF INH Q4HR Y for WHEEZING 01/08/14 Latanoprost (Latanoprost) 2.5 Ml Drops, 1 DROP BOTH EYES PM 01/08/14 Omeprazole (Prilosec) 40 Mg Capsule.dr, 20 MG PO ACB 10/13/13 Furosemide (Lasix) 40 Mg Tablet, 40 MG PO DAILY 10/13/13 Allergies: Coded Allergies: cephalexin (Verified Allergy, Intermediate, 07/09/16) Penicillins (Verified Allergy, Unknown, 07/09/16) iodine (Verified Allergy, Unknown, 07/09/16) milk (Verified Allergy, Unknown, 07/09/16) Family History Family History: Father- Coronary artery disease, CHF Mother- DM Brother- DM Social History Smoking Status: Never smoker Substance Use Type: does not use Alcohol Intake: none Housing: retirement Current Occupational Status: retired Advance Directives: Yes DNR, Yes DPOA for Healthcare Only Social History Comments PCP Dr Maria Review of Systems Unable to Obtain ROS Due to: clinical condition Comments Unable to obtain ROS due to mentation, encephalopathy Physical Exam General General Nourishment: well nourished, well developed, obese Vital Signs Vital Signs Date Time Temp Pulse Resp B/P Pulse Ox O2 Delivery O2 Flow Rate FiO2 07/09/16 15:00 97.8 68 23 196/86 98 Room Air Height (Feet): 5 Height (Inches): 3.00 Comments Blindness Respiratory Brief: FOUND: clear all florez Comments Diminished bases Cardiovascular (brief) Cardiac Brief: FOUND: pedal edema, regular rate, regular rhythm Abdomen (brief) Abdominal Brief: FOUND: BS normo active x4, soft Integumentary (brief) Integumentary Brief: FOUND: pink Neurologic (brief) Neurological Brief: FOUND: cranial 2-12 intact, motor (Moves 4 extremities equally bilaterally) Neurologic RN Documented GCS Eye Opening: (4)Spontaneous Verbal: (4)Confused Motor: (6)Obeys Commands Total: Psychiatric (brief) FOUND: alert Comments Alert only to son. Confused regarding location and date Laboratory Laboratory Tests Test 07/09/16 13:23 07/09/16 13:29 07/09/16 14:37 White Blood Count 14.6T/MM3 Red Blood Count 5.17M/MM3 Hemoglobin 14.9GM/DL Hematocrit 45.7% Mean Corpuscular Volume 88.4UM3 Mean Corpuscular Hemoglobin 28.8UUG Mean Corpuscular Hemoglobin Concent 32.6GM/DL RDW Standard Deviation 47.9FL Platelet Count 243T/MM3 Mean Platelet Volume 11.5UM3 Immature Granulocyte % (Auto) 0.2% Neutrophils (%) (Auto) 80.9% Lymphocytes (%) (Auto) 10.2% Monocytes (%) (Auto) 7.9% Eosinophils (%) (Auto) 0.5% Basophils (%) (Auto) 0.3% Absolute Immature Granulocyte (auto 0.03T/MM3 Absolute Neutrophils (auto) 11.8T/MM3 Absolute Lymphocytes (auto) 1.5T/MM3 Absolute Monocytes (auto) 1.2T/MM3 Absolute Eosinophils (auto) 0.1T/MM3 Absolute Basophils (auto) 0.0T/MM3 Turbidity < 20 Sodium Level 144MEQ/L Potassium Level 5.2MEQ/L Chloride Level 104MEQ/L Carbon Dioxide Level 28MEQ/L Anion Gap 12MEQ/L Blood Urea Nitrogen 26.0MG/DL Creatinine 1.8MG/DL Glomerular Filtration Rate Calc 27 BUN/Creatinine Ratio 14RATIO Glucose Level 123MG/DL Calculated Osmolality 283MOSM/KG Calcium Level 9.8MG/DL Icterus Index < 2 Troponin I < 0.012ng/ml Chemistry Specimen Hemolysis 20 Urine Collection Type Urine Color Yellow Urine Turbidity Sl cloudy Urine pH 5.5 Urine Specific [place] 1.010 Urine Protein Negative Urine Glucose (UA) Negative Urine Ketones Negative Urine Blood Negative Urine Nitrite Positive Urine Bilirubin Negative Urine Urobilinogen 0.2EU/DL Urine Leukocyte Esterase 1+ Urine RBC 0-1/HPF Urine WBC 3-5/HPF Urine WBC Clumps Few Urine Squamous Epithelial Cells None seen Urine Amorphous Urates Few Urine Bacteria 2+ Urine Culture Indicated Cult reflexed &setup Plasma Lactate 2.2MMOL/L Sepsis Diagnostic Criteria Sepsis Confirmed/Suspected Infection: Yes SIRS Criteria: Acute mental status chg, WBC >=12,000 or <=4,000 Assessment & Plan Problems: (1) Sepsis Status: Acute Assessment & Plan: Magnifications of Sepsis include the following- 1. UTI 2. Leukocytosis- WBC 14.6 3. Encephalopathy 4. Tachypneic- rate 26 (2) Encephalopathy Status: Acute (3) UTI (urinary tract infection) Status: Acute (4) Fracture, metacarpal Status: Acute Qualifiers: Encounter type: initial encounter Metacarpal bone: fourth Fracture type: closed Metacarpal location: shaft Fracture alignment: displaced Laterality: right Qualified Codes: S62.324A - Displaced fracture of shaft of fourth metacarpal bone, right hand, initial encounter for closed fracture (5) Acute kidney injury Status: Acute Assessment & Plan: Present on admission (6) Hyperkalemia Status: Acute Assessment & Plan: Present on admission (7) Diastolic CHF, chronic Status: Chronic (8) Asthma with COPD Status: Acute (9) Dyslipidemia Status: Chronic (10) HTN (hypertension) Status: Chronic (11) GERD (gastroesophageal reflux disease) Status: Chronic (12) Bradycardia Status: Acute Assessment & Plan: Heart rate in the 40's. (13) A-fib Status: Chronic (14) Diabetes Status: Chronic (15) Sleep apnea Status: Chronic (16) Depression Status: Chronic (17) Osteoarthritis Status: Chronic (18) History of [place] (myocardial infarction) Status: Resolved Plan/Intensity of Service Admit patient to inpatient status under the care of Dr. Rodarte for sepsis, urinary tract infection, encephalopathy, bradycardia, and medic carpal fracture. Patient was started on Levaquin IV for antimicrobial coverage while in the emergency room. Will discuss this further with attending as Levaquin may worsen encephalopathy. Place patient on half NS at 100 ML per hour for gentle hydration. Will monitor patient. Cardiac telemetry given bradycardia. Did review home medications and note that patient is on metoprolol 25 milligrams twice a day. Will hold this medication on admission In light of sepsis protocol. Will obtain serial venous lactate levels, blood cultures and urine cultures are pending. Continue patient on Plavix. Patient does have known coronary artery disease along with findings of subacute cerebral infarct. No neurologic deficits on exam. Monitor Accu-Cheks, diabetes is listed in patient's history, however, she is not currently on an oral agent. Will check a hemoglobin A1c on admission. SCDs to bilateral lower extremity for DVT prophylaxis Hyperkalemia noted on admission. However, this could be due to specimen analysis. Will recheck tomorrow am. Will recheck CBC and BMP tomorrow morning to follow blood counts, renal function , electrolytes Again, patient is a do not resuscitate and this orders written Will discuss further plan of care with attending, Dr. Rodarte At time of discharge medical care will return to primary care provider, Dr. Maria DVT Prophylaxis: SCD'S Code Status Do Not Resuscitate Hospital Course Summary Disclaimer The hospital course summary below is not to be considered part of the above Progress Note. Hospital Course Summary Admit patient to inpatient status under the care of Dr. Rodarte for sepsis, urinary tract infection, encephalopathy, bradycardia, and medic carpal fracture. Patient was started on Levaquin IV for antimicrobial coverage while in the emergency room. Will discuss this further with attending as Levaquin may worsen encephalopathy. Place patient on half NS at 100 ML per hour for gentle hydration. Will monitor patient. Cardiac telemetry given bradycardia. Did review home medications and note that patient is on metoprolol 25 milligrams twice a day. Will hold this medication on admission In light of sepsis protocol. Will obtain serial venous lactate levels, blood cultures and urine cultures are pending. Continue patient on Plavix. Patient does have known coronary artery disease along with findings of subacute cerebral infarct. No neurologic deficits on exam. Monitor Accu-Cheks, diabetes is listed in patient's history, however, she is not currently on an oral agent. Will check a hemoglobin A1c on admission. SCDs to bilateral lower extremity for DVT prophylaxis Hyperkalemia noted on admission. However, this could be due to specimen analysis. Will recheck tomorrow am. Will recheck CBC and BMP tomorrow morning to follow blood counts, renal function , electrolytes Again, patient is a do not resuscitate and this orders written Will discuss further plan of care with attending, Dr. Rodarte At time of discharge medical care will return to primary care provider, ENZO Gilliam MD 07/09/162120: Past Medical History Current Medications Home Meds Reported Medications Tramadol HCl (Tramadol HCl) 50 Mg Tablet, 25 MG PO HS 07/09/16 Bisacodyl (Bisacodyl) 10 Mg Supp.rect, 10 MG RECTALLY DAILY Y for CONSTIPATION 07/09/16 Guaifenesin (Guaifenesin ER) 600 Mg Tab.er.12h, 600 MG PO Q12H Y for CONGESTION 07/09/16 Lorazepam (Lorazepam) 0.5 Mg Tablet, 0.5 MG PO Q6H Y for ANXIETY/AGITATION 07/09/16 Donepezil HCl (Donepezil HCl) 10 Mg Tablet, 10 MG PO HS 07/09/16 Acetaminophen (Acetaminophen) 500 Mg Tablet, 1000 MG PO Q4-6H Y for PAIN 07/09/16 Polyvinyl Alcohol (Artificial Tears) 15 Ml Drops, 1 DROP BOTH EYES QID Y for DRY EYES 07/09/16 Mag Hydrox/Al Hydrox/Simeth (Alum-Mag Hydroxide-Simeth Liq) 360 Ml Oral.susp, 30 ML PO Q4H Y for EPIGASTRIC DISTRESS 07/09/16 Nystatin (Nyamyc) 15 Gm Powder, 1 APPLIC TOP BID Y for PRN ORDERS APPLY UNDER ABD FOLD AND/OR GROIN BID PRN 07/09/16 Polyethylene Glycol 3350 (Polyethylene Glycol 3350) 255 Gm Powder, 17 GM PO DAILY Y for CONSTIPATION 07/09/16 Potassium Chloride (Potassium Chloride) 20 Meq Tab.er.prt, 20 MEQ PO BID 07/09/16 Clopidogrel Bisulfate (Clopidogrel) 75 Mg Tablet, 75 MG PO DAILY 07/09/16 Enalapril Maleate (Enalapril Maleate) 10 Mg Tablet, 10 MG PO BID 07/09/16 Gabapentin (Gabapentin) 600 Mg Tablet, 600 MG PO BID 07/09/16 Metoprolol Tartrate (Metoprolol Tartrate) 25 Mg Tablet, 25 MG PO BID 07/09/16 Budesonide/Formoterol Fumarate (Symbicort 160-4.5 Mcg Inhaler) 10.2 Gm Hfa.aer.ad, 2 PUFF INH BID 07/09/16 Calcium Carbonate/Vitamin D3 (Calcium + Vitamin D Tablet) 1 Each Tablet, 1 TAB PO DAILY 11/23/14 Albuterol Sulfate (Proair HFA 90 mcg/actuation) 8.5 Gm Hfa.aer.ad, 2 PUFF INH Q4HR Y for WHEEZING 01/08/14 Latanoprost (Latanoprost) 2.5 Ml Drops, 1 DROP BOTH EYES PM 01/08/14 Omeprazole (Prilosec) 40 Mg Capsule.dr, 20 MG PO ACB 10/13/13 Furosemide (Lasix) 40 Mg Tablet, 40 MG PO DAILY 10/13/13 Allergies: Coded Allergies: cephalexin (Verified Allergy, Intermediate, 07/09/16) Penicillins (Verified Allergy, Unknown, 07/09/16) iodine (Verified Allergy, Unknown, 07/09/16) milk (Verified Allergy, Unknown, 07/09/16) Assessment & Plan Assessment 07/09/2016-I reviewed this chart, the patient history, and the ECONOMIC FORECASTER's/PA's documented findings as above. We discussed and formulated the assessment and plan as above with the additions below.-Dr. Rodarte The patient was seen in her room this evening. No family was present late this evening. The patient states she is feeling okay currently and has just some mild pain in her right hand where she suffered a right fourth metacarpal fracture earlier today. Her hand is in a splint. She denies any pain elsewhere but states her neck is a little stiff. She denies any headache. She denies any chest pain. She does have some mumbling speech and expressive aphasia with word finding difficulties. She states she's had that for "a long time". She denies any new weakness anywhere. She has had severe vision difficulties chronically but notices no new vision problems. She denies any difficulty swallowing, and less she is trying to swallow 3 or more pills at a time. She denies any dysuria or frequency. She think she is urinating less than she should. She denies any recent fevers chills or sweats. She states she has occasional diarrhea. She does not remember falling today. I did call her son, Shawn and he stated that is not unusual for her to have mumbling speech and word finding difficulties when she has an infection. He states that this seems to come and go when she has an infection. He states he noticed her having these symptoms about a week ago. I discussed with him that we found a possible stroke that was not seen in 2013 on her CAT scan of her head. I also notified him that we saw a right lower lobe nodule on shoulder x- ray. He stated that with her dementia and significant decline over the past 2 years he does not think we should evaluate those issues any further. He wants to make sure that she is Comfortable and he agrees with treatment of UTI and dehydration. He also agrees with PT and OT evaluations. He stated that he noticed that she would stop breathing on occasion in the ER and he would nudge her so she would wake up and take a breath. At that time she had some bradycardia as well. She does have known sleep apnea and has a CPAP. We will make sure she uses that at night. On exam the patient is alert and in no acute distress. She has some mumbling speech, and occasional word salad. HEENT reveals sclerae to be anicteric and pupils are equal. She has significant visual deficits. Oropharynx is moist. Neck is somewhat stiff. Carotids are silent. Chest is clear to auscultation. Cardiac vascular reveals a well controlled rate with an irregular rhythm. Abdomen is soft and nontender with positive bowel sounds. Extremities are free of edema. The patient is able to move all 4 extremities on command. Cranial nerves II through XII are intact other than stiffness in her neck and visual difficulties. 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 Crust Sorter strength feels good in the left hand. She is able to raise both arms up off of the bed without difficulties. Strength in her legs is 4+ to 5 and equal bilaterally. Impression Encephalopathy with associated expressive aphasia and slurred speech, possibly secondary to UTI and dehydration Urinary tract infection Dehydration Acute kidney injury on chronic kidney disease-baseline creatinine 1.3 and is 1.8 today Dementia Left occipital infarct subacute versus chronic-no workup wanted by family Hypokalemia Right lower lobe lung nodule seen on shoulder x-ray-no workup wanted by family Atrial fibrillation with well-controlled rate COPD Obstructive sleep apnea Plan IV fluids for rehydration Continue Levaquin for now for UTI, await culture results. Patient is allergic to penicillin and cephalexin Continue home medications except, will hold enalapril, potassium and Lasix. Hold beta christin if heart rate is less than 60 or systolic blood pressure less than 110. Continue on telemetry PT and OT evaluation CPAP for sleep apnea Recheck lab tomorrow DO NOT RESUSCITATE status NITA CRUZ APRN Jul 09, 2016 15:21 ENZO RODARTE MD Jul 09, 2016 21:21
[2016-07-09 15:35] VITALS: Ht 160 cm; Wt 79.8 kg
[2016-07-09 16:11] VITALS: PULSE 75; RESP 16; O2SAT 99
[2016-07-09 16:30] VITALS: BP 143/69
[2016-07-09] MEDS: 1/2 NS 1,000 ML IV SCH (16:34)
[2016-07-09 17:00] LABS: THYROID STIM HORMONE-TSH 1.6 MIU/L (0.47-4.68)
[2016-07-09] MEDS: HYDROCODONE/APAP 5 mg/325 mg TABLET PO PRN (19:19)
--- NOTE | 2016-07-09 19:35 | NUR ---
STATUS PT EATS 100% OF SUPPER WITH SOME ASSIST. PT UP TO BSC WITH ASSIST X2 AND USE OF GAIT BELT. PT INCONTINENT OF MINIMAL AMOUNT OF URINE BUT DOES NOT VOID MORE AT THIS TIME. NORCO 5 i TAB PO GIVEN FOR C/O'S RIGHT ARM PAIN RATED 7/10. PT RESTING QUIETLY BACK IN BED. WILL CONTINUE TO MONITOR.
[2016-07-09] MEDS ORDERED: GUAIFENESIN LA 600 MG TABLET PO PRN (21:00)
[2016-07-09] MEDS ORDERED: LORAZEPAM 0.5 MG TABLET PO PRN (21:00)
[2016-07-09] MEDS ORDERED: BISACODYL 10 MG SUPPOSITORY RECTALLY PRN (21:00)
[2016-07-09 22:04] VITALS: BP 121/57; PULSE 57
[2016-07-09] MEDS: DONEPEZIL 10 MG TABLET PO SCH (22:33)
[2016-07-09] MEDS: GABAPENTIN 600 MG TABLET PO SCH (22:34)
[2016-07-10] VITALS: BP 147/65; PULSE 72; RESP 20; TEMP 96.2; O2SAT 95
[2016-07-10] MEDS: NYSTATIN POWDER 15gm BOTTLE TOP PRN (03:11)
[2016-07-10] MEDS: 1/2 NS 1,000 ML IV SCH ×3 (03:16→23:55)
--- NOTE | 2016-07-10 04:50 | NUR ---
SHIFT SUMMARY: PT IS COOPERATIVE, AND ALERT TO SELF AND LOCATION, IS UP WITH 2 TO BEDSIDE COMMODE, CAN BE INCONTINENT (MINIMAL AMOUNT OF URINE OUTPUT), TAKES PILLS WHOLE, RIGHT HAND IN A CAST, FLUIDS RUNNING, WEARS A C-PAP AT NIGHT, ON ROOM AIR, WEARS SCD'S, TURNED Q2 HRS, AND SPEECH IS A LITTLE GARBLED. CALL LIGHT WITHIN REACH, BED ALARM ON. WILL CONTINUE TO MONITOR.
--- NOTE | 2016-07-10 05:51 | NUR ---
LOW OUTPUT: PT HAD 1 INCONTINENT OUTPUT AT THE BEGINNING OF MY SHIFT. BLADDER SCANNED PT AT 05:45 THIS MORNING AND ONLY 281 URINE RETENTION. WILL CONTINUE TO MONITOR AND PASS INFORMATION ONTO DAY SHIFT.
[2016-07-10] MEDS ORDERED: ALBUTEROL INH.SOLN. 2.5mg/3ml (0.083%) Neb. AEROSOL PRN (07:00)
[2016-07-10 07:32] VITALS: BP 167/72; PULSE 72; RESP 18; TEMP 96.8; O2SAT 96
--- NOTE | 2016-07-10 07:40 | NUR ---
YEAST: IT APPEARS THAT THE PT IS DEVELOPING YEAST IN HER GROIN AREA. SPOKE TO DR. BARRERA REGARDING THIS, SHE ASKED ME TO PUT AN ORDER IN FOR NYSTATIN POWDER. ORDER PLACED AND POWDER APPLIED. DAY SHIFT NOTIFIED.
[2016-07-10 08:40] LABS: BASOPHILS % (AUTO) 0.5 % (0-2); EOSINOPHILS # (AUTO) 0.1 T/MM3 (0-0.5); EOSINOPHILS % (AUTO) 1.7 % (0-4); HGB - HEMOGLOBIN 12.1 GM/DL (12-16); IMMATURE GRANULOCYTE # (AUTO) 0.02 T/MM3 (0.00-0.03); IMMATURE GRANULOCYTE % (AUTO) 0.3 % (0.0-0.5); LYMPHOCYTES % (AUTO) 26.4 % (23-45); MEAN CORPUSCULAR HGB CONC(MCHC 32.7 GM/DL (31-37); MEAN CORPUSCULAR VOLUME 88.7 UM3 (80-100); MEAN PLATELET VOLUME 11.8 UM3 (9.4-12.4); MONOCYTES # (AUTO) 0.9 T/MM3 (0-0.8); MONOCYTES % (AUTO) 11.2 % (0-9.0); NEUTROPHILS #(AUTO)-ABSOLUTE 4.6 T/MM3 (1.8-7.7); NEUTROPHILS % (AUTO) 59.9 % (33-66); RED BLOOD COUNT 4.17 M/MM3 (4.00-5.20); WBC - WHITE BLOOD COUNT 7.6 T/MM3 (4.5-11.0)
[2016-07-10 08:58] LABS: ANION GAP 10 MEQ/L (5-15); BUN/CREATININE RATIO 15 RATIO (6-26); CALCIUM 8.5 MG/DL (8.4-10.2); CHLORIDE 102 MEQ/L (98-107); CO2 - CARBON DIOXIDE 27 MEQ/L (22-30); CREATININE 1.7 MG/DL (0.7-1.2); GLOMERULAR FILTRATION RATE 28; GLUCOSE 100 MG/DL (65-110); POTASSIUM 4.7 MEQ/L (3.6-5); SODIUM 139 MEQ/L (134-144)
[2016-07-10] MEDS ORDERED: POLYETHYL.GLYCOL 3350 PACKET 17gm PO PRN (09:00)
[2016-07-10] MEDS: HYDROCODONE/APAP 5 mg/325 mg TABLET PO PRN (09:06)
[2016-07-10] MEDS: GABAPENTIN 600 MG TABLET PO SCH ×2 (09:48→22:18)
[2016-07-10] MEDS: CLOPIDOGREL 75 MG TABLET PO SCH (09:48)
--- NOTE | 2016-07-10 10:00 | NUR ---
OLIVIER CATHETER JORGE CARE PERFORMED PRIOR TO INSERTION OF OLIVIER. PROPER HYGIENE APPLIED, STERILE TECHNIQUE IMPLEMENTED DURING INSERTION, PT TOLERATED WELL. IMMEDIATE URINE OUTPUT, URINE CLOUDY AND STRAW COLORED. WILL CONTINUE TO MONITOR.
[2016-07-10 10:58] VITALS: BP 145/57; PULSE 53
--- NOTE | 2016-07-10 11:53 | NUR ---
VICKI CM VISITED PT. PT RESTING QUIETLY. CM LEFT CONTACT AT BEDSIDE AND WROTE ON BOARD. CM LEFT MESSAGE FOR PT GUERDA MOREJON AND PROVIDED CONTACT INFORMATION. PT IS [facility].
--- NOTE | 2016-07-10 12:00 | NUR ---
STATUS PT VERY FATIGUED AND LETHARGIC. VSS. PT ON RA, NO S/S OF SOA. BLOOD SUGAR WNL. DR. BARRERA NOTIFIED OF PT'S STATUS, HOME CPAP TO BE APPLIED. WILL CONTINUE TO MONITOR.
[2016-07-10 12:40] VITALS: BP 142/66; PULSE 51
[2016-07-10] MEDS ORDERED: PNEUMOCOCCAL 13 VACCINE 0.5 ML SYRINGE IM ONE (13:00)
[2016-07-10] MEDS ORDERED: PNEUMOCOCCAL VAC. ADMIN. CHARGE INJ ONE (14:00)
--- NOTE | 2016-07-10 14:15 | NUR ---
STATUS BED ALARM SOUNDED, NURSING STAFF FOUND PT SITTING UP ON EDGE OF BED. PT CONFUSED, PULLING OFF TELEMETRY AND IV WAS PULLED OUT. PT ATTEMPTING TO REMOVE OLIVIER CATHETER STAT-LOCK. PT REORIENTED AND REDIRECTED, AND PT EXPRESSED UNDERSTANDING OF WHERE SHE WAS AND WHAT WAS HAPPENING. PT REPOSITIONED TO COMFORT IN BED. PT ABLE TO MAKE NEEDS KNOWN. PLEASANT AND COOPERATIVE WITH STAFF. WILL CONTINUE TO MONITOR.
[2016-07-10] MEDS ORDERED: D5W IV SCH (15:00)
[2016-07-10] MEDS ORDERED: LEVOFLOXACIN IV SCH (15:00)
[2016-07-10 15:57] VITALS: BP_SYST 142; BP_SYST 149; BP_DIAS 66; PULSE 51; RESP 18; TEMP 96.4; O2SAT 97
[2016-07-10] MEDS: ACETAMINOPHEN 500 MG TABLET PO PRN ×2 (18:23→22:18)
--- NOTE | 2016-07-10 18:46 | PNPDOC ---
Subjective Date DATE: 07/10/16 TIME: 18:33 Subjective The patient was seen today accompanied by her son and her nurse. The patient is currently alert and states she feels okay other than some mild pain in her right hand when she moves it. She did have some confusion earlier today after she woke up and had taken off her brace on her hand and was trying to take out her IV. She was redirected fairly easily. Prior to that she was somnolent and had some bradycardia. This seemed to improve after placing her CPAP with sleep. She was also noted to have urinary retention with over 700 ML's of urine on bladder scan. A Valentin catheter was placed. Hopefully this will help with acute kidney injury. Objective Vital Signs Vital signs Vital Signs Date Time Temp Pulse Resp B/P Pulse Ox O2 Delivery O2 Flow Rate FiO2 07/10/16 15:57 96.4 51 18 149/66 97 Room Air GEN-alert, mild slurred speech, word finding difficulties, no acute distress. Patient's son states that the speech abnormality is normal for her when she gets an infection HEENT-oropharynx is moist NECK-supple CV-borderline bradycardic rate with an irregular rhythm CHEST-clear to auscultation bilaterally ABD-soft, obese, nontender, nondistended with positive bowel sounds -Valentin in place and urine looks clear EXT-no edema NEURO-significant for slurred speech and expressive aphasia with word finding difficulties and no other focal deficits SKIN-warm and dry and without rashes Height (Feet): 5 Height (Inches): 3.00 Weight (Kilograms): 77.500 Laboratory Laboratory Item Value Date Time Glucometer 108 mg/dL 07/10/16 1707 Glucometer 118 mg/dL H 07/10/16 1120 Glucometer 136 mg/dL H 07/10/16 1101 Glucometer 108 mg/dL 07/10/16 0611 Hemoglobin A1c 6.0 % L 07/09/16 1323 Laboratory Tests 07/09/16 13:23 07/10/16 08:04 Laboratory Tests 07/09/16 13:23 07/10/16 08:04 Microbiology Microbiology Microbiology Date/Time Source Procedure Growth Status 07/09/16 15:08 Peripheral/Iv Start Blood Culture - Preliminary NO GROWTH AFTER 24 HOURS Resulted 07/09/16 14:37 Peripheral/Iv Start Blood Culture - Preliminary NO GROWTH AFTER 24 HOURS Resulted 07/09/16 13:53 Not Provided Urine Culture - Preliminary Gram Negative Eliseo Resulted Sepsis Diagnostic Criteria Sepsis Confirmed/Suspected Infection: Yes SIRS Criteria: Acute mental status chg, WBC >=12,000 or <=4,000 Assessment & Plan Problems: (1) Sepsis Status: Acute Assessment & Plan: Magnifications of Sepsis include the following- 1. UTI 2. Leukocytosis- WBC 14.6 3. Encephalopathy 4. Tachypneic- rate 26 (2) Encephalopathy Status: Acute (3) UTI (urinary tract infection) Status: Acute (4) Fracture, metacarpal Status: Acute Qualifiers: Encounter type: initial encounter Metacarpal bone: fourth Fracture type: closed Metacarpal location: shaft Fracture alignment: displaced Laterality: right Qualified Codes: S62.324A - Displaced fracture of shaft of fourth metacarpal bone, right hand, initial encounter for closed fracture (5) Acute kidney injury Status: Acute Assessment & Plan: Present on admission (6) Hyperkalemia Status: Acute Assessment & Plan: Present on admission (7) Diastolic CHF, chronic Status: Chronic (8) Asthma with COPD Status: Acute (9) Dyslipidemia Status: Chronic (10) HTN (hypertension) Status: Chronic (11) GERD (gastroesophageal reflux disease) Status: Chronic (12) Bradycardia Status: Acute Assessment & Plan: Heart rate in the 40's. (13) A-fib Status: Chronic (14) Diabetes Status: Chronic (15) Sleep apnea Status: Chronic (16) Depression Status: Chronic (17) Osteoarthritis Status: Chronic (18) History of CT (myocardial infarction) Status: Resolved Assessment Impression/plan Sepsis-improved with normalized white count. UTI with gram-negative rods-initiated Levaquin on 07/09/2016. Allergy to penicillin and cephalosporin. Encephalopathy with slurred speech, confusion and expressive aphasia which is typical for her when she has a urinary tract infection Acute kidney injury likely secondary to dehydration and urinary retention- improving Urinary retention with 700 ML's of urine seen on bladder scan-Valentin catheter placed 07/10/2016 Hyperkalemia-resolved History of CVA with stroke subacute or chronic seen on CT head-family does not want a workup Lung nodule seen on shoulder x-ray-no workup wanted by family. Dementia Bradycardia-likely secondary to metoprolol-we'll hold for now and monitor Atrial fibrillation-rate controlled, may need to restart a lower dose metoprolol tomorrow Obstructive sleep apnea-continue CPAP Hypertension-fair control Hyperglycemia-normal A1c, DC Accu-Cheks Decrease IV fluids. Continue Valentin catheter. Continue on telemetry. PT and OT have been consulted. Repeat lab tomorrow. Discussed care plan with son and nurse. DVT Prophylaxis: SCD'S Code Status Do Not Resuscitate Hospital Course Summary Disclaimer The hospital course summary below is not to be considered part of the above Progress Note. Hospital Course Summary Admit patient to inpatient status under the care of Dr. Barrera for sepsis, urinary tract infection, encephalopathy, bradycardia, and medic carpal fracture. Patient was started on Levaquin IV for antimicrobial coverage while in the emergency room. Will discuss this further with attending as Levaquin may worsen encephalopathy. Place patient on half NS at 100 ML per hour for gentle hydration. Will monitor patient. Cardiac telemetry given bradycardia. Did review home medications and note that patient is on metoprolol 25 milligrams twice a day. Will hold this medication on admission In light of sepsis protocol. Will obtain serial venous lactate levels, blood cultures and urine cultures are pending. Continue patient on Plavix. Patient does have known coronary artery disease along with findings of subacute cerebral infarct. No neurologic deficits on exam. Monitor Accu-Cheks, diabetes is listed in patient's history, however, she is not currently on an oral agent. Will check a hemoglobin A1c on admission. SCDs to bilateral lower extremity for DVT prophylaxis Hyperkalemia noted on admission. However, this could be due to specimen analysis. Will recheck tomorrow am. Will recheck CBC and BMP tomorrow morning to follow blood counts, renal function , electrolytes Again, patient is a do not resuscitate and this orders written Will discuss further plan of care with attending, Dr. Barrera At time of discharge medical care will return to primary care provider, Dr. Maria 07/09/2016-I reviewed this chart, the patient history, and the FOOD QUALITY TESTER's/PA's documented findings as above. We discussed and formulated the assessment and plan as above with the additions below.-Dr. Barrera The patient was seen in her room this evening. No family was present late this evening. The patient states she is feeling okay currently and has just some mild pain in her right hand where she suffered a right fourth metacarpal fracture earlier today. Her hand is in a splint. She denies any pain elsewhere but states her neck is a little stiff. She denies any headache. She denies any chest pain. She does have some mumbling speech and expressive aphasia with word finding difficulties. She states she's had that for "a long time". She denies any new weakness anywhere. She has had severe vision difficulties chronically but notices no new vision problems. She denies any difficulty swallowing, and less she is trying to swallow 3 or more pills at a time. She denies any dysuria or frequency. She think she is urinating less than she should. She denies any recent fevers chills or sweats. She states she has occasional diarrhea. She does not remember falling today. I did call her son, Shawn and he stated that is not unusual for her to have mumbling speech and word finding difficulties when she has an infection. He states that this seems to come and go when she has an infection. He states he noticed her having these symptoms about a week ago. I discussed with him that we found a possible stroke that was not seen in 2014 on her CAT scan of her head. I also notified him that we saw a right lower lobe nodule on shoulder x- ray. He stated that with her dementia and significant decline over the past 2 years he does not think we should evaluate those issues any further. He wants to make sure that she is Comfortable and he agrees with treatment of UTI and dehydration. He also agrees with PT and OT evaluations. He stated that he noticed that she would stop breathing on occasion in the ER and he would nudge her so she would wake up and take a breath. At that time she had some bradycardia as well. She does have known sleep apnea and has a CPAP. We will make sure she uses that at night. On exam the patient is alert and in no acute distress. She has some mumbling speech, and occasional word salad. HEENT reveals sclerae to be anicteric and pupils are equal. She has significant visual deficits. Oropharynx is moist. Neck is somewhat stiff. Carotids are silent. Chest is clear to auscultation. Cardiac vascular reveals a well controlled rate with an irregular rhythm. Abdomen is soft and nontender with positive bowel sounds. Extremities are free of edema. The patient is able to move all 4 extremities on command. Cranial nerves II through XII are intact other than stiffness in her neck and visual difficulties. 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 Painter Rough strength feels good in the left hand. She is able to raise both arms up off of the bed without difficulties. Strength in her legs is 4+ to 5 and equal bilaterally. Impression Encephalopathy with associated expressive aphasia and slurred speech, possibly secondary to UTI and dehydration Urinary tract infection Dehydration Acute kidney injury on chronic kidney disease-baseline creatinine 1.3 and is 1.8 today Dementia Left occipital infarct subacute versus chronic-no workup wanted by family Hypokalemia Right lower lobe lung nodule seen on shoulder x-ray-no workup wanted by family Atrial fibrillation with well-controlled rate COPD Obstructive sleep apnea Plan IV fluids for rehydration Continue Levaquin for now for UTI, await culture results. Patient is allergic to penicillin and cephalexin Continue home medications except, will hold enalapril, potassium and Lasix. Hold beta christin if heart rate is less than 60 or systolic blood pressure less than 110. Continue on telemetry PT and OT evaluation CPAP for sleep apnea Recheck lab tomorrow DO NOT RESUSCITATE status ENZO BARRERA MD Jul 10, 2016 18:36
--- NOTE | 2016-07-10 19:30 | NUR ---
SHIFT SUMMARY PT ALERT, ORIENTED TO PERSON. PT ON RA, DENIES SOA. PT DENIES PAIN AT THIS TIME, PRN TYLENOL AND NORCO ADMINISTERED EARLIER THIS SHIFT. PT DENIES N/V. TURN Q2H WITH ASSIST X2. OLIVIER PATENT, ADEQUATE URINE OUTPUT. NO BM THIS SHIFT. IVF INFUSING ORDERED INTO LEFT FOREARM. BED ALARM ON, CALL LIGHT WITHIN REACH.
[2016-07-10 20:00] VITALS: PULSE 51; RESP 18
[2016-07-10] MEDS: DONEPEZIL 10 MG TABLET PO SCH (22:19)
[2016-07-10] MEDS: LATANOPROST 0.005% EYE DROPS 2.5 ML BOTTLE BOTH EYES SCH (22:19)
[2016-07-11] VITALS: BP 146/68; PULSE 96; RESP 18; TEMP 98; O2SAT 97
[2016-07-11] MEDS: 1/2 NS 1,000 ML IV SCH (07:15)
--- NOTE | 2016-07-11 07:38 | NUR ---
SHIFT SUMMARY PT ALERT AND ORIENTED TO SELF. PLEASANT AND COOPERATIVE WITH CARES. RIGHT FORE ARM TO HER HAND PT HAS SPLINT IN PLACE. PT HAD TYLENOL 1000 MG PO X 2. PT DENIES HAVING PAIN AFTER THIS. STATES IT HURTS BUT NOT BAD. IV INFUSING WITHOUT DIFFICULT. PT HAD HARD TIME GOING TO SLEEP. OFFER TO TURN HER TV ON FOR HER TO LISTEN TO. PT REFUSED STATES IF I'M NOT ABLE TO SEE IT I DON'T WANT IT ON. DENIES SOA OR CHEST PAIN. NOTED HER HEART DID DECREASE LOWER 40'S. PT REPOSITION Q 2 HOURS AND PRN. CHARLINE DD, INTACT CLEAR/YELLOW URINE OUT. CALL LIGHT WITHIN REACH. BED ALARM ON.
[2016-07-11 08:22] VITALS: BP 154/71; PULSE 65; RESP 16; TEMP 96.6; O2SAT 96
[2016-07-11 08:23] VITALS: PULSE 65; RESP 16
[2016-07-11 08:42] LABS: HCT - HEMATOCRIT 35.1 % (36-46); HGB - HEMOGLOBIN 11.7 GM/DL (12-16); MEAN CORPUSCULAR HGB CONC(MCHC 33.3 GM/DL (31-37); MEAN CORPUSCULAR VOLUME 86.9 UM3 (80-100); MEAN PLATELET VOLUME 10.7 UM3 (9.4-12.4); RED BLOOD COUNT 4.04 M/MM3 (4.00-5.20); WBC - WHITE BLOOD COUNT 7.7 T/MM3 (4.5-11.0)
[2016-07-11 08:49] LABS: ALBUMIN 3.1 G/DL (3.5-5.0); ANION GAP 7 MEQ/L (5-15); BUN/CREATININE RATIO 16 RATIO (6-26); CALCIUM 8.5 MG/DL (8.4-10.2); CHLORIDE 105 MEQ/L (98-107); CO2 - CARBON DIOXIDE 26 MEQ/L (22-30); CREATININE 1.2 MG/DL (0.7-1.2); GLOMERULAR FILTRATION RATE 42; GLUCOSE 105 MG/DL (65-110); PHOSPHORUS 4.1 MG/DL (2.5-4.5); POTASSIUM 4.2 MEQ/L (3.6-5); SODIUM 138 MEQ/L (134-144)
--- NOTE | 2016-07-11 09:08 | NUR ---
AM METOPROLOL HELD METOPROLOL HELD THIS MORNING DUE TO BRADYCARDIA. PT MOSTLY 40S-50S. ONLY OCCASIONALLY IN 60S.
[2016-07-11 09:09] LABS: BASOPHILS # (MANUAL) 0.1 T/MM3 (0-0.2); EOSINOPHILS # (MANUAL) 0.1 T/MM3 (0-0.5); LYMPHOCYTES # (MANUAL) 1.5 T/MM3 (1-4.8); TOTAL CELLS COUNTED 100 %
[2016-07-11 09:24] LABS: BLOOD, URINE 2+ (NEGATIVE); COLOR,URINE YELLOW (YELLOW); LEUKOCYTE ESTERASE ,URINE 3+ (NEGATIVE); NITRITE,URINE NEGATIVE (NEGATIVE); UROBILINOGEN,URINE 0.2 EU/DL (NORMAL)
[2016-07-11 09:33] LABS: BACTERIA,URINE 4+ (NEGATIVE); RBC,URINE 0-1 /HPF (0-3); SQUAMOUS EPITHELIAL CELL,UR NONE SEEN; WBC CLUMPS,URINE FEW; WBC,URINE 50-200 /HPF (0-5)
[2016-07-11] MEDS ORDERED: FOSFOMYCIN 3 GRAM PACKET PO ONE (09:45)
[2016-07-11] MEDS: CLOPIDOGREL 75 MG TABLET PO SCH (09:59)
[2016-07-11] MEDS: HYDROCODONE/APAP 5 mg/325 mg TABLET PO PRN ×3 (10:00→21:07)
[2016-07-11] MEDS: GABAPENTIN 600 MG TABLET PO SCH ×2 (10:00→21:08)
[2016-07-11 15:23] VITALS: BP_SYST 157; BP_SYST 174; BP_DIAS 63; BP_DIAS 70; PULSE 61; RESP 18; TEMP 96.1; O2SAT 97
--- NOTE | 2016-07-11 18:24 | NUR ---
SHIFT SUMMARY VSS. RA. PATIENT MOSTLY JUST ORIENTED TO PERSON. NORCO GIVEN TWICE THIS SHIFT FOR GENERALIZED PAIN. UP TO CHAIR FOR ALL THREE MEALS. ADEQUATE URINE OUTPUT FROM OLIVIER, URINE REMAINS QUITE CLOUDY. PERIPHERAL IV SALINE LOCKED. BED AND CHAIR ALARMS IN USE.
--- NOTE | 2016-07-11 18:26 | NUR ---
PM METOPROLOL HELD METOPROLOL HELD DUE TO HR 50S-60.
--- NOTE | 2016-07-11 20:55 | PNPDOC ---
Subjective Date DATE: 07/11/16 TIME: 20:45 Subjective Patient was seen earlier this morning. She was still a little drowsy after being awoken from sleep for breakfast and to take her pills. She used her CPAP overnight. She denies any pain. She denies any shortness of breath. Objective Vital Signs Vital signs Vital Signs Date Time Temp Pulse Resp B/P Pulse Ox O2 Delivery O2 Flow Rate FiO2 07/11/16 20:32 16 07/11/16 20:32 66 07/11/16 15:23 96.1 157/70 97 Room Air GEN-drowsy but arousable, no acute distress CV-irregularly irregular, borderline low rate. Telemetry showed heart rate down into the 40s at times and a [place] to 15 beat run of undetermined tachycardia CHEST-clear to auscultation bilaterally ABD-soft, nontender, nondistended with positive bowel sounds -Valentin placed for urinary retention EXT-no edema NEURO-mental status improving SKIN-warm and dry Height (Feet): 5 Height (Inches): 3.00 Weight (Kilograms): 78.200 Laboratory Laboratory Laboratory Tests 07/10/16 08:04 07/11/16 08:34 Laboratory Tests 07/10/16 08:04 07/11/16 08:34 Microbiology Microbiology Microbiology Date/Time Source Procedure Growth Status 07/09/16 15:08 Peripheral/Iv Start Blood Culture - Preliminary NO GROWTH AFTER 48 HOURS Resulted 07/09/16 14:37 Peripheral/Iv Start Blood Culture - Preliminary NO GROWTH AFTER 48 HOURS Resulted 07/11/16 09:33 Urine, Valentin Indwelling Urine Culture - Preliminary CULTURE INITIATED - RESULTS PENDING Resulted 07/09/16 13:53 Not Provided Urine Culture - Final Escherichia Coli Complete URINE CULTURE. Final 07/11/16-737 Organism 1 ESCHERICHIA COLI COLONY COUNT >100,000 CFU/ml E COLI INTERP DANIEL ------ --------- AMOX/CLAV ACID S 8 AMPICILLIN R >=32 CEFAZOLIN S <=4 CEFEPIME S <=1 CEFTAZIDIME S <=1 CEFTRIAXONE S <=1 CIPROFLOXACIN R >=4 ERTAPENEM S <=0.5 GENTAMICIN R >=16 LEVOFLOXACIN R >=8 TOBRAMYCIN I 8 TRIMETH/SULFA R >=320 PIPERACILL/TAZO S <=4 URINE CULTURE. Preliminary (changed) 07/11/16-0737 Organism 1 ESCHERICHIA COLI COLONY COUNT >100,000 CFU/ml Sepsis Diagnostic Criteria Sepsis Confirmed/Suspected Infection: Yes SIRS Criteria: Acute mental status chg, WBC >=12,000 or <=4,000 Assessment & Plan Problems: (1) Sepsis Status: Acute Assessment & Plan: Magnifications of Sepsis include the following- 1. UTI 2. Leukocytosis- WBC 14.6 3. Encephalopathy 4. Tachypneic- rate 26 (2) Encephalopathy Status: Acute (3) UTI (urinary tract infection) Status: Acute (4) Fracture, metacarpal Status: Acute Qualifiers: Encounter type: initial encounter Metacarpal bone: fourth Fracture type: closed Metacarpal location: shaft Fracture alignment: displaced Laterality: right Qualified Codes: S62.324A - Displaced fracture of shaft of fourth metacarpal bone, right hand, initial encounter for closed fracture (5) Acute kidney injury Status: Acute Assessment & Plan: Present on admission (6) Hyperkalemia Status: Acute Assessment & Plan: Present on admission (7) Diastolic CHF, chronic Status: Chronic (8) Asthma with COPD Status: Acute (9) Dyslipidemia Status: Chronic (10) HTN (hypertension) Status: Chronic (11) GERD (gastroesophageal reflux disease) Status: Chronic (12) Bradycardia Status: Acute Assessment & Plan: Heart rate in the 40's. (13) A-fib Status: Chronic (14) Diabetes Status: Chronic (15) Sleep apnea Status: Chronic (16) Depression Status: Chronic (17) Osteoarthritis Status: Chronic (18) History of [place] (myocardial infarction) Status: Resolved Assessment 07/11/2016 Impression/plan Sepsis-improved with normalized white count. UTI with Escherichia coli resistant to Levaquin. Patient has Allergy to penicillin and cephalosporin. Discussed with pharmacist and will give fosfomycin 1 today Encephalopathy with slurred speech, confusion and expressive aphasia which is typical for her when she has a urinary tract infection-improving Acute kidney injury likely secondary to dehydration and urinary retention- improving daily Urinary retention with 700 ML's of urine seen on bladder scan-Valentin catheter placed 07/10/2016 Hyperkalemia-resolved History of CVA with stroke subacute or chronic seen on CT head-family does not want a workup Lung nodule seen on shoulder x-ray-no workup wanted by family. Family requests that we do not mention nodule to the patient because she will worry excessively Dementia Bradycardia-likely secondary to metoprolol-continue to hold. Consider consultation with Dr. Contreras Fall possibly secondary to UTI with encephalopathy versus bradycardia versus other Atrial fibrillation-rate controlled, may need to restart a lower dose metoprolol tomorrow Obstructive sleep apnea-continue CPAP Hypertension-fair control Left fourth metacarpal fracture which will make ambulation with her walker difficult Hyperglycemia-normal A1c, DC Accu-Cheks DC IV fluids. Continue Valentin catheter. Continue on telemetry. PT and OT have been consulted. Repeat lab tomorrow. Discussed care plan with nurse. Greater than 35 minutes of time spent seeing and evaluating the patient and determining care plan DVT Prophylaxis: SCD'S Code Status Do Not Resuscitate Hospital Course Summary Disclaimer The hospital course summary below is not to be considered part of the above Progress Note. Hospital Course Summary Admit patient to inpatient status under the care of Dr. Rodarte for sepsis, urinary tract infection, encephalopathy, bradycardia, and medic carpal fracture. Patient was started on Levaquin IV for antimicrobial coverage while in the emergency room. Will discuss this further with attending as Levaquin may worsen encephalopathy. Place patient on half NS at 100 ML per hour for gentle hydration. Will monitor patient. Cardiac telemetry given bradycardia. Did review home medications and note that patient is on metoprolol 25 milligrams twice a day. Will hold this medication on admission In light of sepsis protocol. Will obtain serial venous lactate levels, blood cultures and urine cultures are pending. Continue patient on Plavix. Patient does have known coronary artery disease along with findings of subacute cerebral infarct. No neurologic deficits on exam. Monitor Accu-Cheks, diabetes is listed in patient's history, however, she is not currently on an oral agent. Will check a hemoglobin A1c on admission. SCDs to bilateral lower extremity for DVT prophylaxis Hyperkalemia noted on admission. However, this could be due to specimen analysis. Will recheck tomorrow am. Will recheck CBC and BMP tomorrow morning to follow blood counts, renal function , electrolytes Again, patient is a do not resuscitate and this orders written Will discuss further plan of care with attending, Dr. Rodarte At time of discharge medical care will return to primary care provider, Dr. Maria 07/09/2016-I reviewed this chart, the patient history, and the NAVAL SURFACE FIRE SUPPORT PLANNER's/PA's documented findings as above. We discussed and formulated the assessment and plan as above with the additions below.-Dr. Rodarte The patient was seen in her room this evening. No family was present late this evening. The patient states she is feeling okay currently and has just some mild pain in her right hand where she suffered a right fourth metacarpal fracture earlier today. Her hand is in a splint. She denies any pain elsewhere but states her neck is a little stiff. She denies any headache. She denies any chest pain. She does have some mumbling speech and expressive aphasia with word finding difficulties. She states she's had that for "a long time". She denies any new weakness anywhere. She has had severe vision difficulties chronically but notices no new vision problems. She denies any difficulty swallowing, and less she is trying to swallow 3 or more pills at a time. She denies any dysuria or frequency. She think she is urinating less than she should. She denies any recent fevers chills or sweats. She states she has occasional diarrhea. She does not remember falling today. I did call her son, Shawn and he stated that is not unusual for her to have mumbling speech and word finding difficulties when she has an infection. He states that this seems to come and go when she has an infection. He states he noticed her having these symptoms about a week ago. I discussed with him that we found a possible stroke that was not seen in 2013 on her CAT scan of her head. I also notified him that we saw a right lower lobe nodule on shoulder x- ray. He stated that with her dementia and significant decline over the past 2 years he does not think we should evaluate those issues any further. He wants to make sure that she is Comfortable and he agrees with treatment of UTI and dehydration. He also agrees with PT and OT evaluations. He stated that he noticed that she would stop breathing on occasion in the ER and he would nudge her so she would wake up and take a breath. At that time she had some bradycardia as well. She does have known sleep apnea and has a CPAP. We will make sure she uses that at night. On exam the patient is alert and in no acute distress. She has some mumbling speech, and occasional word salad. HEENT reveals sclerae to be anicteric and pupils are equal. She has significant visual deficits. Oropharynx is moist. Neck is somewhat stiff. Carotids are silent. Chest is clear to auscultation. Cardiac vascular reveals a well controlled rate with an irregular rhythm. Abdomen is soft and nontender with positive bowel sounds. Extremities are free of edema. The patient is able to move all 4 extremities on command. Cranial nerves II through XII are intact other than stiffness in her neck and visual difficulties. With right hand in a splint we are not able to check her die casting machine operator strength. Assistant Head Cashier strength feels good in the left hand. She is able to raise both arms up off of the bed without difficulties. Strength in her legs is 4+ to 5 and equal bilaterally. Impression Encephalopathy with associated expressive aphasia and slurred speech, possibly secondary to UTI and dehydration Urinary tract infection Dehydration Acute kidney injury on chronic kidney disease-baseline creatinine 1.3 and is 1.8 today Dementia Left occipital infarct subacute versus chronic-no workup wanted by family Hypokalemia Right lower lobe lung nodule seen on shoulder x-ray-no workup wanted by family Atrial fibrillation with well-controlled rate COPD Obstructive sleep apnea Plan IV fluids for rehydration Continue Levaquin for now for UTI, await culture results. Patient is allergic to penicillin and cephalexin Continue home medications except, will hold enalapril, potassium and Lasix. Hold beta christin if heart rate is less than 60 or systolic blood pressure less than 110. Continue on telemetry PT and OT evaluation CPAP for sleep apnea Recheck lab tomorrow DO NOT RESUSCITATE status 07/10/2016 Impression/plan Sepsis-improved with normalized white count. UTI with gram-negative rods-initiated Levaquin on 07/09/2016. Allergy to penicillin and cephalosporin. Encephalopathy with slurred speech, confusion and expressive aphasia which is typical for her when she has a urinary tract infection Acute kidney injury likely secondary to dehydration and urinary retention- improving Urinary retention with 700 ML's of urine seen on bladder scan-Valentin catheter placed 07/10/2016 Hyperkalemia-resolved History of CVA with stroke subacute or chronic seen on CT head-family does not want a workup Lung nodule seen on shoulder x-ray-no workup wanted by family. Dementia Bradycardia-likely secondary to metoprolol-we'll hold for now and monitor Atrial fibrillation-rate controlled, may need to restart a lower dose metoprolol tomorrow Obstructive sleep apnea-continue CPAP Hypertension-fair control Hyperglycemia-normal A1c, DC Accu-Cheks Decrease IV fluids. Continue Valentin catheter. Continue on telemetry. PT and OT have been consulted. Repeat lab tomorrow. Discussed care plan with son and nurse. ENZO RODARTE MD Jul 11, 2016 20:48
[2016-07-11] MEDS: DONEPEZIL 10 MG TABLET PO SCH (21:08)
[2016-07-11] MEDS: LATANOPROST 0.005% EYE DROPS 2.5 ML BOTTLE BOTH EYES SCH (21:08)
[2016-07-12 00:20] VITALS: BP 169/72; PULSE 73; RESP 14; TEMP 96.8; O2SAT 96
--- NOTE | 2016-07-12 01:34 | NUR ---
Chart Check 24 hour chart check completed
[2016-07-12 04:30] VITALS: BP 162/77; PULSE 85; RESP 12; TEMP 96.5; O2SAT 95
--- NOTE | 2016-07-12 06:33 | NUR ---
Status Pt moved to bed at 1900 from chair. Pt required 2 assist with walker. Cassie, RN, stated that she was weaker in evening then previously in day. Pt used home CPAP during night. Turned [id number]. Had a headache and generalized aches. Gave Varna, and pt stated the headache was better. Pt somewhat difficult to understand with CPAP on. Somewhat mumbled at times without CPAP as well. Pt appeared to rest well. Bed alarm on and call light within reach. Will continue to monitor.
[2016-07-12 07:35] VITALS: BP 203/87; PULSE 75; RESP 20; TEMP 96.8; O2SAT 96
[2016-07-12 07:41] VITALS: BP 180/81; PULSE 75
[2016-07-12 08:39] LABS: ALBUMIN 3.3 G/DL (3.5-5.0); ANION GAP 8 MEQ/L (5-15); BUN/CREATININE RATIO 14 RATIO (6-26); CALCIUM 8.9 MG/DL (8.4-10.2); CHLORIDE 104 MEQ/L (98-107); CO2 - CARBON DIOXIDE 28 MEQ/L (22-30); GLOMERULAR FILTRATION RATE 52; GLUCOSE 115 MG/DL (65-110); PHOSPHORUS 3.6 MG/DL (2.5-4.5); POTASSIUM 4.2 MEQ/L (3.6-5); SODIUM 140 MEQ/L (134-144)
[2016-07-12] MEDS: GABAPENTIN 600 MG TABLET PO SCH ×2 (08:40→20:15)
[2016-07-12] MEDS: CLOPIDOGREL 75 MG TABLET PO SCH (08:40)
[2016-07-12] MEDS: AMLODIPINE 2.5 MG TABLET PO SCH (08:41)
[2016-07-12 08:47] VITALS: PULSE 75; RESP 20
--- NOTE | 2016-07-12 11:33 | PNPDOC ---
NITA CRUZ V RIGGING ENGINEER 07/12/16 1128: Subjective Date DATE: 07/12/16 TIME: 11:18 Subjective Aurelia is seen this morning while up in the chair. She is alert and pleasant on examination. She seem to have continued confusion during conversation. She is able to verbalize that her right hand hurts at times. She denies having shortness of breath or chest pain. She is maintaining adequate saturations on room and using C-pap at night. No episodes of bradycardia overnight, pulse in the 70s. BP elevated this morning at180/81. Objective Vital Signs Vital signs Vital Signs Date Time Temp Pulse Resp B/P Pulse Ox O2 Delivery O2 Flow Rate FiO2 07/12/16 08:47 75 20 07/12/16 07:41 180/81 07/12/16 07:35 96.8 96 CPAP Height (Feet): 5 Height (Inches): 3.00 Weight (Kilograms): 78.000 General General Appearance: Alert, Orientated x 1, Confused, Cooperative, No Acute Distress Eyes (Brief) Eyes: FOUND: EOMI ENMT (Brief) ENMT: FOUND: mucosa moist, normal dentition, NOT FOUND: pharnyx erythema Neck (Brief) Neck: FOUND: midline, NOT FOUND: adenopathy, carotid bruits, tracheal deviation Respiratory (Brief) Respiratory: FOUND: clear all florez, equal bilaterally, NOT FOUND: wheezes Cardiovascular (Brief) Cardiac: FOUND: regular rate, regular rhythm, NOT FOUND: murmur, pedal edema Capillary Refill: <2 sec Abdomen (Brief) Abdominal: FOUND: BS normo active x4, soft, NOT FOUND: distended, tender Lymphatic (Brief) Lymphatic: NOT FOUND: adenopathy Musculoskeletal (Brief) Musculoskeletal: NOT FOUND: tenderness Integumentary (Brief) Integumentary: FOUND: dry, pink, warm Neurologic (Brief) Neurological: FOUND: cranial 2-12 intact Psychiatric (Brief) Psychiatric: FOUND: alert, attentive, normal affect, oriented Laboratory Laboratory Laboratory Tests 07/11/16 08:34 07/12/16 08:10 Laboratory Tests 07/11/16 08:34 Microbiology Microbiology Microbiology Date/Time Source Procedure Growth Status 07/09/16 15:08 Peripheral/Iv Start Blood Culture - Preliminary NO GROWTH AFTER 48 HOURS Resulted 07/09/16 14:37 Peripheral/Iv Start Blood Culture - Preliminary NO GROWTH AFTER 48 HOURS Resulted 07/11/16 09:33 Urine, Valentin Indwelling Urine Culture - Preliminary Escherichia Coli Resulted 07/09/16 13:53 Not Provided Urine Culture - Final Escherichia Coli Complete Sepsis Diagnostic Criteria Sepsis Confirmed/Suspected Infection: Yes SIRS Criteria: Acute mental status chg, WBC >=12,000 or <=4,000 Assessment & Plan Problems: (1) Sepsis Status: Acute Assessment & Plan: Magnifications of Sepsis include the following- 1. UTI 2. Leukocytosis- WBC 14.6 3. Encephalopathy 4. Tachypneic- rate 26 (2) Encephalopathy Status: Acute (3) UTI (urinary tract infection) Status: Acute (4) Fracture, metacarpal Status: Acute Qualifiers: Encounter type: initial encounter Metacarpal bone: fourth Fracture type: closed Metacarpal location: shaft Fracture alignment: displaced Laterality: right Qualified Codes: S62.324A - Displaced fracture of shaft of fourth metacarpal bone, right hand, initial encounter for closed fracture (5) Acute kidney injury Status: Acute Assessment & Plan: Present on admission (6) Hyperkalemia Status: Acute Assessment & Plan: Present on admission (7) Diastolic CHF, chronic Status: Chronic (8) Asthma with COPD Status: Acute (9) Dyslipidemia Status: Chronic (10) HTN (hypertension) Status: Chronic (11) GERD (gastroesophageal reflux disease) Status: Chronic (12) Bradycardia Status: Acute Assessment & Plan: Heart rate in the 40's. (13) A-fib Status: Chronic (14) Diabetes Status: Chronic (15) Sleep apnea Status: Chronic (16) Depression Status: Chronic (17) Osteoarthritis Status: Chronic (18) History of IL (myocardial infarction) Status: Resolved Plan/Intensity of Service 07/12/16 Fosfomycin 3 gm PO x1 was given yesterday for treatment of UTI. Leukocytosis has resolved, WBC count 7.7 yesterday In light of hypertension she was started on Norvasc 2.5 mg daily in addition to current regimen of Lopressor 12.5 milligrams twice a day Consultation placed with Dr. Contreras in light of recent bradycardia Will review right metacarpal fracture, which is currently in Ortho-Glass splint. Will discuss this with Ortho regarding recommendations for therapy and possible splint replacement. Will encourage work with PT/OT Will discuss further plan of care with Dr Rodarte Code Status Do Not Resuscitate Hospital Course Summary Disclaimer The hospital course summary below is not to be considered part of the above Progress Note. Hospital Course Summary Admit patient to inpatient status under the care of Dr. Rodarte for sepsis, urinary tract infection, encephalopathy, bradycardia, and medic carpal fracture. Patient was started on Levaquin IV for antimicrobial coverage while in the emergency room. Will discuss this further with attending as Levaquin may worsen encephalopathy. Place patient on half NS at 100 ML per hour for gentle hydration. Will monitor patient. Cardiac telemetry given bradycardia. Did review home medications and note that patient is on metoprolol 25 milligrams twice a day. Will hold this medication on admission In light of sepsis protocol. Will obtain serial venous lactate levels, blood cultures and urine cultures are pending. Continue patient on Plavix. Patient does have known coronary artery disease along with findings of subacute cerebral infarct. No neurologic deficits on exam. Monitor Accu-Cheks, diabetes is listed in patient's history, however, she is not currently on an oral agent. Will check a hemoglobin A1c on admission. SCDs to bilateral lower extremity for DVT prophylaxis Hyperkalemia noted on admission. However, this could be due to specimen analysis. Will recheck tomorrow am. Will recheck CBC and BMP tomorrow morning to follow blood counts, renal function , electrolytes Again, patient is a do not resuscitate and this orders written Will discuss further plan of care with attending, Dr. Rodarte At time of discharge medical care will return to primary care provider, Dr. Maria 07/09/2016-I reviewed this chart, the patient history, and the RIGGING ENGINEER's/PA's documented findings as above. We discussed and formulated the assessment and plan as above with the additions below.-Dr. Rodarte The patient was seen in her room this evening. No family was present late this evening. The patient states she is feeling okay currently and has just some mild pain in her right hand where she suffered a right fourth metacarpal fracture earlier today. Her hand is in a splint. She denies any pain elsewhere but states her neck is a little stiff. She denies any headache. She denies any chest pain. She does have some mumbling speech and expressive aphasia with word finding difficulties. She states she's had that for "a long time". She denies any new weakness anywhere. She has had severe vision difficulties chronically but notices no new vision problems. She denies any difficulty swallowing, and less she is trying to swallow 3 or more pills at a time. She denies any dysuria or frequency. She think she is urinating less than she should. She denies any recent fevers chills or sweats. She states she has occasional diarrhea. She does not remember falling today. I did call her son, Shawn and he stated that is not unusual for her to have mumbling speech and word finding difficulties when she has an infection. He states that this seems to come and go when she has an infection. He states he noticed her having these symptoms about a week ago. I discussed with him that we found a possible stroke that was not seen in 2014 on her CAT scan of her head. I also notified him that we saw a right lower lobe nodule on shoulder x- ray. He stated that with her dementia and significant decline over the past 2 years he does not think we should evaluate those issues any further. He wants to make sure that she is Comfortable and he agrees with treatment of UTI and dehydration. He also agrees with PT and OT evaluations. He stated that he noticed that she would stop breathing on occasion in the ER and he would nudge her so she would wake up and take a breath. At that time she had some bradycardia as well. She does have known sleep apnea and has a CPAP. We will make sure she uses that at night. On exam the patient is alert and in no acute distress. She has some mumbling speech, and occasional word salad. HEENT reveals sclerae to be anicteric and pupils are equal. She has significant visual deficits. Oropharynx is moist. Neck is somewhat stiff. Carotids are silent. Chest is clear to auscultation. Cardiac vascular reveals a well controlled rate with an irregular rhythm. Abdomen is soft and nontender with positive bowel sounds. Extremities are free of edema. The patient is able to move all 4 extremities on command. Cranial nerves II through XII are intact other than stiffness in her neck and visual difficulties. With right hand in a splint we are not able to check her hot die picker strength. Annealer strength feels good in the left hand. She is able to raise both arms up off of the bed without difficulties. Strength in her legs is 4+ to 5 and equal bilaterally. Impression Encephalopathy with associated expressive aphasia and slurred speech, possibly secondary to UTI and dehydration Urinary tract infection Dehydration Acute kidney injury on chronic kidney disease-baseline creatinine 1.3 and is 1.8 today Dementia Left occipital infarct subacute versus chronic-no workup wanted by family Hypokalemia Right lower lobe lung nodule seen on shoulder x-ray-no workup wanted by family Atrial fibrillation with well-controlled rate COPD Obstructive sleep apnea Plan IV fluids for rehydration Continue Levaquin for now for UTI, await culture results. Patient is allergic to penicillin and cephalexin Continue home medications except, will hold enalapril, potassium and Lasix. Hold beta christin if heart rate is less than 60 or systolic blood pressure less than 110. Continue on telemetry PT and OT evaluation CPAP for sleep apnea Recheck lab tomorrow DO NOT RESUSCITATE status 07/10/2016 Impression/plan Sepsis-improved with normalized white count. UTI with gram-negative rods-initiated Levaquin on 07/09/2016. Allergy to penicillin and cephalosporin. Encephalopathy with slurred speech, confusion and expressive aphasia which is typical for her when she has a urinary tract infection Acute kidney injury likely secondary to dehydration and urinary retention- improving Urinary retention with 700 ML's of urine seen on bladder scan-Valentin catheter placed 07/10/2016 Hyperkalemia-resolved History of CVA with stroke subacute or chronic seen on CT head-family does not want a workup Lung nodule seen on shoulder x-ray-no workup wanted by family. Dementia Bradycardia-likely secondary to metoprolol-we'll hold for now and monitor Atrial fibrillation-rate controlled, may need to restart a lower dose metoprolol tomorrow Obstructive sleep apnea-continue CPAP Hypertension-fair control Hyperglycemia-normal A1c, DC Accu-Cheks Decrease IV fluids. Continue Valentin catheter. Continue on telemetry. PT and OT have been consulted. Repeat lab tomorrow. Discussed care plan with son and nurse. 07/11/2016 Impression/plan Sepsis-improved with normalized white count. UTI with Escherichia coli resistant to Levaquin. Patient has Allergy to penicillin and cephalosporin. Discussed with pharmacist and will give fosfomycin 1 today Encephalopathy with slurred speech, confusion and expressive aphasia which is typical for her when she has a urinary tract infection-improving Acute kidney injury likely secondary to dehydration and urinary retention- improving daily Urinary retention with 700 ML's of urine seen on bladder scan-Valentin catheter placed 07/10/2016 Hyperkalemia-resolved History of CVA with stroke subacute or chronic seen on CT head-family does not want a workup Lung nodule seen on shoulder x-ray-no workup wanted by family. Family requests that we do not mention nodule to the patient because she will worry excessively Dementia Bradycardia-likely secondary to metoprolol-continue to hold. Consider consultation with Dr. Contreras Fall possibly secondary to UTI with encephalopathy versus bradycardia versus other Atrial fibrillation-rate controlled, may need to restart a lower dose metoprolol tomorrow Obstructive sleep apnea-continue CPAP Hypertension-fair control Left fourth metacarpal fracture which will make ambulation with her walker difficult Hyperglycemia-normal A1c, DC Accu-Cheks DC IV fluids. Continue Valentin catheter. Continue on telemetry. PT and OT have been consulted. Repeat lab tomorrow. Discussed care plan with nurse. Greater than 35 minutes of time spent seeing and evaluating the patient and determining care plan 07/12/16 Fosfomycin 3 gm PO x1 was given yesterday for treatment of UTI. Leukocytosis has resolved, WBC count 7.7 yesterday In light of hypertension she was started on Norvasc 2.5 mg daily in addition to current regimen of Lopressor 12.5 milligrams twice a day Consultation placed with Dr. Contreras in light of recent bradycardia Will review right metacarpal fracture, which is currently in Ortho-Glass splint. Will discuss this with Ortho regarding recommendations for therapy and possible splint replacement. Will encourage work with PT/OT Will discuss further plan of care with ENZO Sanchez MD 07/12/161915: Assessment & Plan Assessment 07/12/2016-I reviewed this chart, the patient history, and the RIGGING ENGINEER's/PA's documented findings as above. We discussed and formulated the assessment and plan as above with the additions below.-Dr. Rodarte The patient was seen earlier this afternoon. She had had a tachyarrhythmia on telemetry overnight. I did call and talk with Dr. Contreras. He reviewed the patient's telemetry and history. 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 He did discuss possible pacemaker placement with her and her son. When I examined the patient this afternoon she stated she wanted to go ahead and proceed with pacemaker. She states she is doing okay. She has some occasional hand pain. She denies any chest pain or headache. She denies any shortness of breath. She denies any nausea or vomiting. On exam she is alert with occasional slurred speech and word finding difficulties. Chest is clear to auscultation. Cardiovascular reveals an irregularly irregular rhythm. Abdomen is soft and nontender. Extremities are free of edema. Skin is warm and dry I did return this evening to talk with the patient's son. He wanted to talk about whether or not to proceed with pacemaker. We did discuss pros and cons and he has decided to go ahead and proceed with pacemaker placement. I did ask the nurse to notify Dr. Contreras. Overall, the patient appears to be improving. White count has normalized. No fevers. Monitor for signs for recurrence of UTI. Altered mental status has markedly improved. She did have increase in blood pressure with decrease in metoprolol. Norvasc was started at a low dose. Continues to use CPAP with sleep. Greater than 35 minutes of time was spent seeing and evaluating the patient, talking with family and talking with Dr. Contreras. DVT Prophylaxis: SCD'S NITA CRUZ APRN Jul 12, 2016 11:28 ENZO RODARTE MD Jul 12, 2016 19:16
--- NOTE | 2016-07-12 11:57 | NUR ---
CM CM LEFT MESSAGE FOR WINIFRED AT [facility] REGARDING PT STATUS AND ANTICIPATED D/C PLAN FOR PT. WINIFRED AWARE TO CONTACT CM IF NEEDS ARISE.
--- NOTE | 2016-07-12 15:00 | NUR ---
STATUS PT ALERT AND ORIENTED TO PERSON AND PLACE. PT ON RA, DENIES SOA. RATES RIGHT WRIST PAIN 5/10, DENIES NEED FOR PAIN MEDICATION AT THIS TIME, REPORTS "PUTTING IT ON THE PILLOW HELPS." IVL LEFT HAND PATENT. PT UP WITH ASSIST X2, GAIT BELT, WALKER. PT TO BARE WEIGHT ONTO RIGHT FOREARM INSTEAD OF RIGHT WRIST WHEN USING WALKER, EXPRESSES UNDERSTANDING. OLIVIER PATENT, ADEQUATE URINE OUTPUT. BM THIS SHIFT. CHAIR ALARM ON, CALL LIGHT WITHIN REACH.
[2016-07-12 15:09] VITALS: BP 159/71; PULSE 76; RESP 16; TEMP 97.9; O2SAT 95
[2016-07-12] MEDS: LATANOPROST 0.005% EYE DROPS 2.5 ML BOTTLE BOTH EYES SCH (20:15)
[2016-07-12] MEDS: DONEPEZIL 10 MG TABLET PO SCH (20:15)
[2016-07-12] MEDS: HYDROCODONE/APAP 5 mg/325 mg TABLET PO PRN (20:18)
[2016-07-13] VITALS (7 sets, daily range): BP systolic 82–186; BP diastolic 56–78; PULSE 55–84; RESP 16–22; TEMP 95.9–98.6; O2SAT 92–95
--- NOTE | 2016-07-13 05:04 | NUR ---
Status Pt using home CPAP during night. Had BM in evening. Adequate urine output in montero. Gave [place] for "pain in legs." Pt appeared to rest well. Turned q2hr. Takes pills whole. Bed alarm on and call light within reach. Will continue to monitor.
[2016-07-13] MEDS: ACETAMINOPHEN 500 MG TABLET PO PRN (08:16)
[2016-07-13] MEDS: CLOPIDOGREL 75 MG TABLET PO SCH (09:00)
[2016-07-13] MEDS: AMLODIPINE 2.5 MG TABLET PO SCH (09:57)
[2016-07-13] MEDS: GABAPENTIN 600 MG TABLET PO SCH ×2 (09:58→20:30)
--- NOTE | 2016-07-13 10:55 | NUR ---
CM CM SPOKE WITH [facility] FROM [facility]. AWARE OF PT PLANED PROCEDURE FOR TOMORROW. AWARE TO CONTACT CM IF NEEDS ARISE.
--- NOTE | 2016-07-13 16:28 | NUR ---
SCD SCD BILATERAL IN PLACE. PT SITTING UP IN CHAIR AT BEDSIDE. PT TOLERATING SCD'S WELL NO COMPLAINTS AT THIS TIME. Addendum: 07/13/16 at 1629 by MEL WALKER RN Amended: Links added.
--- NOTE | 2016-07-13 16:38 | CONSPD ---
Consultation Info Date DATE: 07/13/16 TIME: 16:25 Attending Physician Coni Sanders MD Reason for Consultation: Closed, displaced fx of right 4th proximal metacarpal Impression/Recommendation Impression/Recommendation: (1) Fracture of metacarpal base of right hand, closed Status: Acute Qualifiers: Encounter type: initial encounter Qualified Codes: S62.319A - Displaced fracture of base of unspecified metacarpal bone, initial encounter for closed fracture Recommendation: x We plan to treat her with a splint that will allow for mobilization of her fingers to prevent stiffness. She can work on gentle ROM of her fingers but should not use the hand for lifting / gripping or bearing wt. Will check an Xray in 3-4 weeks to confirm healing. Monitor for any change in rotational deformity of the finger which could suggest a change in fracture position. Ortho HPI HPI Elements HPI 86 yo female who is a resident of [facility] here in [place]. She fell off the toilet in an unwitnessed fall on 07/09/16 at [place] and injured her right hand. She was brought to [facility] for evaluation after her fall. She has multiple other medical issues that she is being treated for. Xrays of the right hand show a closed, displaced fx of the right 4th metacarpal base. She has pain in the right hand and has limited use due to the pain. She is not a heavy user of the hand except for ADL's. The fx is minimally displaced and there is no rotational deformity of the finger noted. She should do well with a simple splint and f/u to confirm healing. Review of Systems Unable to Obtain ROS Due to: clinical condition Constitutional: REPORTS: fever Past Medical History Adult Problem List Updates Atrial fibrillation. COPD Asthma Chronic diastolic heart failure Coronary artery disease with history of PR Dyslipidemia Hypertension Depression Glaucoma with blindness Osteoarthritis Sleep Apnea Surgical History Patient's Surgical History: Back surgery Cholecystectomy Cardiac stent T&A Current Medications Acetaminophen (Acetaminophen) 500 Mg Tablet, 1,000 MG PO Q4-6H PRN for PAIN, ( Reported) Last Taken: Unknown Dose on Unknown Date & Time Albuterol Sulfate (Proair HFA 90 mcg/actuation) 8.5 Gm Hfa.aer.ad, 2 PUFF INH Q4HR PRN for WHEEZING, ( Reported) Last Taken: Unknown Dose on Unknown Date & Time Bisacodyl (Bisacodyl) 10 Mg Supp.rect, 10 MG RECTALLY DAILY PRN for CONSTIPATION, (Reported) Last Taken: Unknown Dose on Unknown Date & Time Budesonide/Formoterol Fumarate (Symbicort 160-4.5 Mcg Inhaler) 10.2 Gm Hfa.aer.ad, 2 PUFF INH BID, ( Reported) Last Taken: Unknown Dose on 07/09/16 0914 Calcium Carbonate/Vitamin D3 ( Calcium + Vitamin D Tablet) 1 Each Tablet, 1 TAB PO DAILY, (Reported) Last Taken: Unknown Dose on 07/09/16914 Clopidogrel Bisulfate (Clopidogrel ) 75 Mg Tablet, 75 MG PO DAILY, (Reported) Last Taken: Unknown Dose on 07/09/16914 Donepezil HCl (Donepezil HCl) 10 Mg Tablet, 10 MG PO HS, (Reported) Last Taken: Unknown Dose on 07/08/161999 Enalapril Maleate (Enalapril Maleate) 10 Mg Tablet, 10 MG PO BID, (Reported) Last Taken: Unknown Dose on 07/09/16914 Furosemide (Lasix) 40 Mg Tablet, 40 MG PO DAILY, (Reported) Last Taken: Unknown Dose on 07/09/16914 Gabapentin (Gabapentin) 600 Mg Tablet, 600 MG PO BID, (Reported) Last Taken: Unknown Dose on 07/09/16914 Guaifenesin (Guaifenesin ER) 600 Mg Tab.er.12h, 600 MG PO Q12H PRN for CONGESTION, (Reported) Last Taken: Unknown Dose on Unknown Date & Time Latanoprost (Latanoprost) 2.5 Ml Drops, 1 DROP BOTH EYES PM, (Reported) Last Taken: Unknown Dose on 07/08/16 1700 Lorazepam (Lorazepam) 0.5 Mg Tablet , 0.5 MG PO Q6H PRN for ANXIETY/AGITATION, (Reported) Last Taken: Unknown Dose on Unknown Date & Time Mag Hydrox/Al Hydrox/Simeth (Alum-Mag Hydroxide-Simeth Liq) 360 Ml Oral.susp, 30 ML PO Q4H PRN for EPIGASTRIC DISTRESS, (Reported) Last Taken: Unknown Dose on Unknown Date & Time Metoprolol Tartrate ( Metoprolol Tartrate) 25 Mg Tablet, 25 MG PO BID, (Reported) Last Taken: Unknown Dose on 07/09/16915 Nystatin (Nyamyc) 15 Gm Powder, 1 APPLIC TOP BID PRN for PRN ORDERS, (Reported) APPLY UNDER ABD FOLD AND/OR GROIN BID PRN Last Taken: Unknown Dose on Unknown Date & Time Omeprazole (Prilosec) 40 Mg Capsule.dr, 20 MG PO ACB, (Reported) Last Taken: Unknown Dose on 07/09/16 0651 Polyethylene Glycol 3350 ( Polyethylene Glycol 3350) 255 Gm Powder, 17 GM PO DAILY PRN for CONSTIPATION, ( Reported) Last Taken: Unknown Dose on Unknown Date & Time Polyvinyl Alcohol ( Artificial Tears) 15 Ml Drops, 1 DROP BOTH EYES QID PRN for DRY EYES, (Reported) Last Taken: Unknown Dose on Unknown Date & Time Potassium Chloride ( Potassium Chloride) 20 Meq Tab.er.prt, 20 MEQ PO BID, (Reported) Last Taken: Unknown Dose on 07/09/16 0916 Tramadol HCl (Tramadol HCl) 50 Mg Tablet, 25 MG PO HS, (Reported) Last Taken: Unknown Dose on 07/08/161999 Allergies Allergies: Coded Allergies: cephalexin (Verified Allergy, Intermediate, 07/09/16) Penicillins (Verified Allergy, Unknown, 07/09/16) iodine (Verified Allergy, Unknown, 07/09/16) milk (Verified Allergy, Unknown, 07/09/16) Family History Family History: Father- Coronary artery disease, CHF Mother- DM Brother- DM Vaccines 01/16/16 PCV13 UNKNOWN MAYBE 2 YEARS AGO PER SON NO OPEN WOUNDS Social History Smoking Status: Never smoker Substance Use Type: does not use Alcohol Intake: none Housing: senior living Current Occupational Status: retired Advance Directives: Yes DNR, Yes DPOA for Healthcare Only ([facility]) Physical Exam General General: well nourished, well developed, no acute distress Respiratory FOUND non-labored Cardiovascular FOUND other (radial pulse intact.) Capillary Refill: <2 sec Musculoskeletal Musculoskeletal : Comments The right hand is tender over the 4th Metacarpal base. She has decreased ROM of the hand but has no obvious rotational deformity of the finger. Neurologic FOUND intact to light touch, FOUND no deficits Psychiatric FOUND alert Radiology Radiology Closed, displaced fx of the right proximal 4th metacarpal base. GOVIND MIRELES Jul 13, 2016 16:30
--- NOTE | 2016-07-13 18:51 | NUR ---
SHIFT SUMMARY PT ALERT AND ORIENTED TO PERSON. PT ON RA, DENIES SOA. RATES RIGHT WRIST PAIN AND BACK PAIN 5/10, PRN TYLENOL ADMINISTERED EARLIER THIS SHIFT, PT REPORTED DECREASED PAIN AND DENIES NEED FOR PAIN MEDICATION AT THIS TIME. PT UP WITH ASSIST X1, GAIT BELT, WALKER. NON-WEIGHT BEARING TO RIGHT WRIST. OLIVIER PATENT, ADEQUATE URINE OUTPUT. IVL LEFT HAND PATENT. UP IN RECLINER FOR SUPPER. CHAIR ALARM ON, CALL LIGHT WITHIN REACH.
--- NOTE | 2016-07-13 19:49 | PNPDOC ---
Subjective Date DATE: 07/13/16 TIME: 19:20 Subjective Nursing reports that Mrs. Duran was fairly somnolent this morning but at the time of my assessment midafternoon the patient was up in a chair and verbally responsive. She complained of intermittent pressure in her right wrist and hand due to the splint but denied numbness in her fingers. She reports that she is occasionally lightheaded when she transfers from bed to chair and complained of chronic back pain which is not increased from baseline. She denied dyspnea, chest pain, palpitations, nausea, or constipation. Objective Vital Signs Vital signs Vital Signs Date Time Temp Pulse Resp B/P Pulse Ox O2 Delivery O2 Flow Rate FiO2 07/13/16 18:40 84 07/13/16 16:26 97.2 22 186/72 94 Room Air EXAM General-NAD, slow verbal responses with some word searching HEENT-sunglasses on Lungs-respirations are nonlabored with good airflow, breath sounds clear bilaterally Cardiac-regular rhythm, S1-S2 Abd-soft, nontender, nondistended, managed bowel sounds Ext-without edema bilateral lower extremities, minor edema present fingers of the right hand distal to her splint Neuro-wiggles fingers of her right hand without difficulty, sensation intact 4 extremities Psych-cooperative, calm, vague responses at times Height (Feet): 5 Height (Inches): 3.00 Weight (Kilograms): 78.900 Laboratory Laboratory Laboratory Tests 07/12/16 08:10 EKG Telemetry strips reviewed-typically atrial fibrillation with slow rate, one episode SVT Microbiology Microbiology Microbiology Date/Time Source Procedure Growth Status 07/11/16 09:33 Urine, Valentin Indwelling Urine Culture - Final Escherichia Coli Complete Blood cultures 2 negative after 4 days Sepsis Diagnostic Criteria Sepsis Confirmed/Suspected Infection: Yes SIRS Criteria: Acute mental status chg, WBC >=12,000 or <=4,000 Assessment & Plan Problems: (1) Tachycardia-bradycardia syndrome Status: Acute (2) Sepsis Status: Acute Assessment & Plan: Magnifications of Sepsis include the following- 1. UTI 2. Leukocytosis- WBC 14.6 3. Encephalopathy 4. Tachypneic- rate 26 (3) Encephalopathy Status: Acute (4) Fracture, metacarpal Status: Acute Qualifiers: Encounter type: subsequent encounter Metacarpal bone: fourth Fracture type: closed Metacarpal location: shaft Fracture alignment: displaced Laterality: right (5) HTN (hypertension) Status: Chronic (6) UTI (urinary tract infection) Status: Acute Assessment & Plan: Escherichia coli, multidrug resistant; treated fosfomycin on 07/11/16 (7) Acute kidney injury Status: Resolved Assessment & Plan: Present on admission (8) Hyperkalemia Status: Resolved Assessment & Plan: Present on admission (9) Diastolic CHF, chronic Status: Chronic (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 Duran reports she plans to proceed with and her son has consented to pacemaker placement for management of bradycardia. Plavix on hold for procedure, underlying atrial fibrillation. Blood pressure remains modestly elevated and beta christin is routinely being held due to slow heart rate. Orthostatic vital signs to be obtained prior to addition of further antihypertensives, following pacemaker placement will resume beta christin. With stabilization of renal function will resume enalapril at home dose. Reassess renal function and electrolytes in the morning. Right hand discomfort improved following modification in splint earlier today, Tylenol available as needed. Urinary tract infection treated. Afebrile, white count normal when last evaluated. Continue PT/OT Plan/Intensity of Service Discussed with nursing and Dr. Contreras. Laboratory data reviewed, bacteriology reviewed. Telemetry strips reviewed by myself. Pacemaker placement planned for tomorrow. Code Status Do Not Resuscitate Hospital Course Summary Disclaimer The hospital course summary below is not to be considered part of the above Progress Note. Hospital Course Summary Admit patient to inpatient status under the care of Dr. Rodarte for sepsis, urinary tract infection, encephalopathy, bradycardia, and medic carpal fracture. Patient was started on Levaquin IV for antimicrobial coverage while in the emergency room. Will discuss this further with attending as Levaquin may worsen encephalopathy. Place patient on half NS at 100 ML per hour for gentle hydration. Will monitor patient. Cardiac telemetry given bradycardia. Did review home medications and note that patient is on metoprolol 25 milligrams twice a day. Will hold this medication on admission In light of sepsis protocol. Will obtain serial venous lactate levels, blood cultures and urine cultures are pending. Continue patient on Plavix. Patient does have known coronary artery disease along with findings of subacute cerebral infarct. No neurologic deficits on exam. Monitor Accu-Cheks, diabetes is listed in patient's history, however, she is not currently on an oral agent. Will check a hemoglobin A1c on admission. SCDs to bilateral lower extremity for DVT prophylaxis Hyperkalemia noted on admission. However, this could be due to specimen analysis. Will recheck tomorrow am. Will recheck CBC and BMP tomorrow morning to follow blood counts, renal function , electrolytes Again, patient is a do not resuscitate and this orders written At time of discharge medical care will return to primary care provider, Dr. Maria Impression Encephalopathy with associated expressive aphasia and slurred speech, possibly secondary to UTI and dehydration Urinary tract infection Dehydration Acute kidney injury on chronic kidney disease-baseline creatinine 1.3 and is 1.8 today Dementia Left occipital infarct subacute versus chronic-no workup wanted by family Hypokalemia Right lower lobe lung nodule seen on shoulder x-ray-no workup wanted by family Atrial fibrillation with well-controlled rate COPD Obstructive sleep apnea 07/10/2016 Impression/plan Sepsis-improved with normalized white count. UTI with gram-negative rods-initiated Levaquin on 07/09/2016. Allergy to penicillin and cephalosporin. Encephalopathy with slurred speech, confusion and expressive aphasia which is typical for her when she has a urinary tract infection Acute kidney injury likely secondary to dehydration and urinary retention- improving Urinary retention with 700 ML's of urine seen on bladder scan-Valentin catheter placed 07/10/2016 Hyperkalemia-resolved History of CVA with stroke subacute or chronic seen on CT head-family does not want a workup Lung nodule seen on shoulder x-ray-no workup wanted by family. Dementia Bradycardia-likely secondary to metoprolol-we'll hold for now and monitor Atrial fibrillation-rate controlled, may need to restart a lower dose metoprolol tomorrow Obstructive sleep apnea-continue CPAP Hypertension-fair control Hyperglycemia-normal A1c, DC Accu-Cheks Decrease IV fluids. Continue Valentin catheter. Continue on telemetry. PT and OT have been consulted. Repeat lab tomorrow. Discussed care plan with son and nurse. 07/11/2016 Impression/plan Sepsis-improved with normalized white count. UTI with Escherichia coli resistant to Levaquin. Patient has Allergy to penicillin and cephalosporin. Discussed with pharmacist and will give fosfomycin 1 today Encephalopathy with slurred speech, confusion and expressive aphasia which is typical for her when she has a urinary tract infection-improving Acute kidney injury likely secondary to dehydration and urinary retention- improving daily Urinary retention with 700 ML's of urine seen on bladder scan-Valentin catheter placed 07/10/2016 Hyperkalemia-resolved History of CVA with stroke subacute or chronic seen on CT head-family does not want a workup Lung nodule seen on shoulder x-ray-no workup wanted by family. Family requests that we do not mention nodule to the patient because she will worry excessively Dementia Bradycardia-likely secondary to metoprolol-continue to hold. Consider consultation with Dr. Contreras Fall possibly secondary to UTI with encephalopathy versus bradycardia versus other Atrial fibrillation-rate controlled, may need to restart a lower dose metoprolol tomorrow Obstructive sleep apnea-continue CPAP Hypertension-fair control Left fourth metacarpal fracture which will make ambulation with her walker difficult Hyperglycemia-normal A1c, DC Accu-Cheks DC IV fluids. Continue Valentin catheter. Continue on telemetry. PT and OT have been consulted. Repeat lab tomorrow. Discussed care plan with nurse. Greater than 35 minutes of time spent seeing and evaluating the patient and determining care plan 07/12/16 Fosfomycin 3 gm PO x1 was given yesterday for treatment of UTI. Leukocytosis has resolved, WBC count 7.7 yesterday In light of hypertension she was started on Norvasc 2.5 mg daily in addition to current regimen of Lopressor 12.5 milligrams twice a day Consultation placed with Dr. Contreras in light of recent bradycardia Will review right metacarpal fracture, which is currently in Ortho-Glass splint. Will discuss this with Ortho regarding recommendations for therapy and possible splint replacement. Will encourage work with PT/OT 07/13/16-[place] Mrs. Duran reports she plans to proceed with and her son has consented to pacemaker placement for management of bradycardia. Blood pressure remains modestly elevated and beta christin is routinely being held due to slow heart rate. Orthostatic vital signs to be obtained prior to addition of further antihypertensives, following pacemaker placement will resume beta christin. With stabilization of renal function will resume enalapril at home dose. Reassess renal function and electrolytes in the morning. Right hand discomfort improved following modification in splint earlier today, Tylenol available as needed. Urinary tract infection treated. ANGELES FUNK MD Jul 13, 2016 19:23
[2016-07-13] MEDS: NYSTATIN POWDER 15gm BOTTLE TOP PRN (20:29)
[2016-07-13] MEDS: LATANOPROST 0.005% EYE DROPS 2.5 ML BOTTLE BOTH EYES SCH (20:29)
[2016-07-13] MEDS: DONEPEZIL 10 MG TABLET PO SCH (20:31)
[2016-07-13] MEDS: ENALAPRIL 10 MG TABLET PO SCH (20:49)
--- NOTE | 2016-07-13 21:34 | CONSPD ---
Consultation Info Date DATE: 07/12/16 TIME: 21:08 Date of Consultation: Jul 12, 2016 Attending Physician: zabrina HPI - Adult Date DATE: 07/12/16 TIME:noon General Date of Admission Date of Admission: Jul 09, 2016 at 14:49 Chief Complaint: sepsis, UTI, encephalopathy, bradycardia History of Present Illness 86 yo wf well known to me , with cad DCHF COPD and mild dementia. ADMITTED TO [facility] 07/09/16 after a fall. pt states she got up to the bathroom , to wash her hands and mouth and doesn't remember anything until the nurse walked in to check on her and found her on the floor. pt was told that she passed out and fell. She was admitted thru ER with a hand Fx and UTI and received 3 d of IV ATB so far. she doesnt remember any CP palpitations or warning dizziness. she has been confused intermittently and diagnosed with dementia. in the hospital (including ED) pt was found to be bradycardic reportedly in 30- 40s. BB were reduced and pt had long runs of nonsustained SVT/PAT. rate of about 160-180 BPM. she continuted to have intermittent S Bradycardia low 40's. she denies dizziness cp palp or dyspnea at present time. w/u also shoed subacute ischemic CVA on head CT scan. she is on plavix. her last cor stent was in 2013 to LCX where she had 3 v CAD w totally occluded LAD and severe occlusion of LCX NL LVFX , and pt was a poor surgical candidate for CABG. TAMIE 3.0 mm. Past Medical History Past Medical History Metabolic: diabetes, hypercholesterolemia, hypertension ENMT: cataracts, glaucoma Cardiac: A-fib, CAD, CHF, MO, echocardiogram Respiratory: COPD, asthma, other, pneumonia GI: GERD, gallbladder disease, other Female: other Neurological: concussion, headaches, migraines, neuropathy Musculoskeletal: back pain, osteoarthritis Psychological: depression Surgical History General: back, gallbladder, other, tonsils Cardiac: cardiac cath, cardiac stent Current Medications Home Meds Reported Medications Tramadol HCl (Tramadol HCl) 50 Mg Tablet, 25 MG PO HS 07/09/16 Bisacodyl (Bisacodyl) 10 Mg Supp.rect, 10 MG RECTALLY DAILY Y for CONSTIPATION 07/09/16 Guaifenesin (Guaifenesin ER) 600 Mg Tab.er.12h, 600 MG PO Q12H Y for CONGESTION 07/09/16 Lorazepam (Lorazepam) 0.5 Mg Tablet, 0.5 MG PO Q6H Y for ANXIETY/AGITATION 07/09/16 Donepezil HCl (Donepezil HCl) 10 Mg Tablet, 10 MG PO HS 07/09/16 Acetaminophen (Acetaminophen) 500 Mg Tablet, 1000 MG PO Q4-6H Y for PAIN 07/09/16 Polyvinyl Alcohol (Artificial Tears) 15 Ml Drops, 1 DROP BOTH EYES QID Y for DRY EYES 07/09/16 Mag Hydrox/Al Hydrox/Simeth (Alum-Mag Hydroxide-Simeth Liq) 360 Ml Oral.susp, 30 ML PO Q4H Y for EPIGASTRIC DISTRESS 07/09/16 Nystatin (Nyamyc) 15 Gm Powder, 1 APPLIC TOP BID Y for PRN ORDERS APPLY UNDER ABD FOLD AND/OR GROIN BID PRN 07/09/16 Polyethylene Glycol 3350 (Polyethylene Glycol 3350) 255 Gm Powder, 17 GM PO DAILY Y for CONSTIPATION 07/09/16 Potassium Chloride (Potassium Chloride) 20 Meq Tab.er.prt, 20 MEQ PO BID 07/09/16 Clopidogrel Bisulfate (Clopidogrel) 75 Mg Tablet, 75 MG PO DAILY 07/09/16 Enalapril Maleate (Enalapril Maleate) 10 Mg Tablet, 10 MG PO BID 07/09/16 Gabapentin (Gabapentin) 600 Mg Tablet, 600 MG PO BID 07/09/16 Metoprolol Tartrate (Metoprolol Tartrate) 25 Mg Tablet, 25 MG PO BID 07/09/16 Budesonide/Formoterol Fumarate (Symbicort 160-4.5 Mcg Inhaler) 10.2 Gm Hfa.aer.ad, 2 PUFF INH BID 07/09/16 Calcium Carbonate/Vitamin D3 (Calcium + Vitamin D Tablet) 1 Each Tablet, 1 TAB PO DAILY 11/23/14 Albuterol Sulfate (Proair HFA 90 mcg/actuation) 8.5 Gm Hfa.aer.ad, 2 PUFF INH Q4HR Y for WHEEZING 01/08/14 Latanoprost (Latanoprost) 2.5 Ml Drops, 1 DROP BOTH EYES PM 01/08/14 Omeprazole (Prilosec) 40 Mg Capsule.dr, 20 MG PO ACB 10/13/13 Furosemide (Lasix) 40 Mg Tablet, 40 MG PO DAILY 10/13/13 Allergies: Coded Allergies: cephalexin (Verified Allergy, Intermediate, 07/09/16) Penicillins (Verified Allergy, Unknown, 07/09/16) iodine (Verified Allergy, Unknown, 07/09/16) milk (Verified Allergy, Unknown, 07/09/16) gluten (Verified Adverse Reaction, Intermediate, diarrhea, stomach cramps , 07/13/16) Family History FOUND: CAD, CHF, MO, cancer, diabetes, hypertension Vaccines 01/16/16 PCV13 UNKNOWN MAYBE 2 YEARS AGO PER SON NO OPEN WOUNDS Social History Smoking Status: Never smoker Substance Use Type: does not use Alcohol Intake: none Housing: correction Current Occupational Status: retired Advance Directives: Yes DNR, Yes DPOA for Healthcare Only ([facility]) Review of Systems Constitutional: REPORTS: fatigue, DENIES: chills, fever, weight gain, weight loss Eyes Lids/Accessories: DENIES: swelling Vision: DENIES: double vision ENMT Hearing: REPORTS: hearing loss Nose: NOT FOUND: nosebleeds Mouth/Throat: DENIES: change in voice, drooling Cardiovascular DENIES: orthopnea Rhythm/Rate: bradycardia, tachycardia, DENIES: palpitations Pulmonary Respiratory: cough Integumentary Skin: DENIES: color change Neurological General: syncope Psychiatric Psychiatric: DENIES: depression Hematologic/Lymphatic anemia Allergic/Immunological allergic reactions Physical Exam General General Nourishment: well nourished, well developed, apparent age General Body Habitus: well groomed Vital Signs Vital Signs Date Time Temp Pulse Resp B/P Pulse Ox O2 Delivery O2 Flow Rate FiO2 07/13/16 21:02 16 07/13/16 21:02 66 07/13/16 16:26 97.2 186/72 94 Room Air Height (Feet): 5 Height (Inches): 3.00 Eyes Brief: FOUND: EOMI, PERRL, NOT FOUND: trauma ENMT Brief: FOUND: mucosa moist Neck Brief: NOT FOUND: JVD, thyromegaly Respiratory Brief: FOUND: clear all florez, equal bilaterally, other Cardiovascular (brief) Cardiac Brief: FOUND: regular rhythm, NOT FOUND: regular rate Capillary Refill: <2 sec Abdomen (brief) Abdominal Brief: FOUND: BS normo active x4, soft, NOT FOUND: distended, tender Lymphatic (brief) Lymphatic Brief: NOT FOUND: adenopathy, lymphedema Integumentary (brief) Integumentary Brief: FOUND: dry, pink, warm Neurologic (brief) Neurological Brief: FOUND: cranial 2-12 intact, NOT FOUND: facial droop, ptosis Neurologic RN Documented GCS Eye Opening: (4)Spontaneous Verbal: (4)Confused Motor: (6)Obeys Commands Total: Psychiatric (brief) FOUND: alert, attentive, normal affect, oriented Psychiatric Psychiatric General: FOUND: affect, judgment, mood Attitude: FOUND: cooperative Laboratory Laboratory Tests Test 07/12/16 08:10 Turbidity < 20 Sodium Level 140MEQ/L Potassium Level 4.2MEQ/L Chloride Level 104MEQ/L Carbon Dioxide Level 28MEQ/L Anion Gap 8MEQ/L Blood Urea Nitrogen 14.0MG/DL Creatinine 1.0MG/DL Glomerular Filtration Rate Calc 52 BUN/Creatinine Ratio 14RATIO Glucose Level 115MG/DL Calculated Osmolality 271MOSM/KG Calcium Level 8.9MG/DL Phosphorus Level 3.6MG/DL Icterus Index < 2 Albumin 3.3G/DL Chemistry Specimen Hemolysis < 15 EKG SR RBBB no acute changes of ischemia tele SB pacs' and sinus dysrhythmia couldn't R/O SA node exit block. Impression/Recommendation Recommendation Syncope symptomatic irrevrsible SA node dsyfx tachbradya syndrome PAF ischemic CVA falls cad sp TAMIE 2013 DCHF COPD dementia per records lengthy dw pt and her son (Robby) over the phone regarding indicatioon alternatives risks and benfetis of PPM insertion ,wnd they want to think about it to decide. see orders thank you DASHA DE SANTIAGO MD Jul 13, 2016 21:19
--- NOTE | 2016-07-13 21:41 | PNPDOC ---
Subjective Date DATE: 07/13/16 TIME: 21:34 seen about 1130 am Subjective no c/o deneis angin adyspnea or palpitations denies feeling dizzy. wants to proceed w pacemaker more tired today per RN from statying up in [place] for sa l;asa time Objective Vital Signs Vital signs Vital Signs 07/13/16 07/13/16 07/13/16 07/13/16 16:26 18:40 20:00 21:02 Temp 97.2 Pulse 69 84 84 66 Resp 22 22 B/P 186/72 Pulse Ox 94 O2 Delivery Room Air 07/13/16 07/13/16 21:02 21:02 Pulse 66 Resp 16 Telemetry Rhythm: Sinus Rhythm, Sinus Bradycardia Height (Feet): 5 Height (Inches): 3.00 Weight (Kilograms): 78.900 General Alert, Orientated x 3, No Acute Distress Eyes (Brief) EOMI, PERRL ENMT (Brief) mucosa moist Neck (Brief) NOT FOUND: JVD Respiratory (Brief) clear all florez, equal bilaterally Cardiovascular (Brief) other (distant), regular rate, regular rhythm Abdomen (Brief) BS normo active x4, soft, NOT FOUND: distended, tender Extremities (Brief) Extremity : Extremity Finding: NOT FOUND: clubbing, cyanosis, deformity Lymphatic (Brief) NOT FOUND: lymphedema Integumentary (Brief) pink, warm Neurologic (Brief) FOUND: cranial 2-12 intact, motor, NOT FOUND: facial droop, ptosis Psychiatric (Brief) alert, attentive, normal affect Microbiology Microbiology Microbiology Date/Time Source Procedure Growth Status 07/11/16 09:33 Urine, Valentin Indwelling Urine Culture - Final Escherichia Coli Complete Sepsis Diagnostic Criteria Sepsis Confirmed/Suspected Infection: Yes SIRS Criteria: Acute mental status chg, WBC >=12,000 or <=4,000 Assessment & Plan Assessment syncope bardycardia tachybrady syndrome CAD UTI PCN/cepha. allergy pacer tomorrow . prepacer orders. chlorhexadine bath Iv ATB and IVF etc..plavix on hold ,SCD's on. pt and son agree and understand the risks and possible compliocations DASHA DE SANTIAGO MD Jul 13, 2016 21:37
[2016-07-13] MEDS ORDERED: NORMAL SALINE 1,000 ML IV SCH (21:45)
[2016-07-13] MEDS: HYDROCODONE/APAP 5 mg/325 mg TABLET PO PRN (22:50)
[2016-07-14] VITALS (16 sets, daily range): BP systolic 137–187; BP diastolic 67–116; PULSE 15–89; RESP 14–78; TEMP 96.9–97.9; O2SAT 91–96
[2016-07-14 06:10] LABS: ALBUMIN 3.1 G/DL (3.5-5.0); ANION GAP 8 MEQ/L (5-15); BUN/CREATININE RATIO 13 RATIO (6-26); CALCIUM 8.8 MG/DL (8.4-10.2); CHLORIDE 105 MEQ/L (98-107); CO2 - CARBON DIOXIDE 27 MEQ/L (22-30); CREATININE 1.3 MG/DL (0.7-1.2); GLOMERULAR FILTRATION RATE 39; GLUCOSE 110 MG/DL (65-110); PHOSPHORUS 3.9 MG/DL (2.5-4.5); POTASSIUM 4.4 MEQ/L (3.6-5); SODIUM 140 MEQ/L (134-144)
--- NOTE | 2016-07-14 07:26 | NUR ---
SHIFT SUMMARY PT ALERT AND ORIENTED X 3. AT TIMES SHE HAS CONFUSION. OLIVIER DD, CLEAR/YELLOW URINE. RE-POSITION Q 2 HOURS WITH 2 ASSIST. PT MOVES SOME BY HER SELF. LEFT ARM ON PILLOW FOR SUPPORT. PT WILL HAVE A PACEMAKER PLACED TODAY. PT'S DAUGHTER CALLED LAST NIGHT ASKING WHEN HER MOTHER SURGERY WOULD BE? ASK DAUGHTER TO CALL BACK IN MORNING TO VISIT WITH DAY NURSE. PT WEAR C-PAP AT NIGHT, GONZALEZ. WELL. PT WAS NPO AT MIDNIGHT AND NS STARTED AT 125 ML/HR. NEW IV SITE TO PT'S LEFT FOREARM. CALL LIGHT WITHIN REACH.
[2016-07-14] MEDS: ENALAPRIL 10 MG TABLET PO SCH ×2 (10:23→21:05)
[2016-07-14] MEDS: GABAPENTIN 600 MG TABLET PO SCH ×2 (10:23→21:05)
[2016-07-14] MEDS: AMLODIPINE 2.5 MG TABLET PO SCH (10:23)
--- NOTE | 2016-07-14 13:11 | NUR ---
PT NOTE: Attempted to see pt twice but refused to do therapy as she is waiting for pacemaker insertion. Pt reported she wanted to wait and did not feel like doing therapy. Any questions call [phone]
[2016-07-14] MEDS: VANCOMYCIN IV SCH (14:00)
[2016-07-14] MEDS: NORMAL SALINE IV SCH (14:00)
[2016-07-14] MEDS ORDERED: WATER FOR INJECTION 20 ML ONE (14:44)
[2016-07-14] MEDS ORDERED: CEFAZOLIN 1 GRAM INJECTION ONE (14:44)
[2016-07-14] MEDS ORDERED: MIDAZOLAM 2mg/2ml INJECTION ONE (14:45)
[2016-07-14] MEDS ORDERED: FENTANYL 100mcg/2ml INJECTION ONE (14:45)
[2016-07-14] MEDS ORDERED: SALINE FLUSH 10ml SYRINGE ONE (14:45)
[2016-07-14] MEDS ORDERED: BACITRACIN INJ. 50,000 UNITS VL ONE (14:45)
[2016-07-14] MEDS ORDERED: LIDOCAINE 1% (10mg/ml) 30ml SDV ONE (14:46)
[2016-07-14] MEDS ORDERED: NORMAL SALINE 1,000 ML ONE (15:07)
[2016-07-14] MEDS ORDERED: DiphenhydrAMINE 50 MG/ML INJECTION ONE (15:33)
[2016-07-14] MEDS ORDERED: HYDROCORTISONE 100mg/2ml Injection ONE (15:33)
--- NOTE | 2016-07-14 15:33 | NUR ---
STATUS pt is alert and oriented. pt has denied pain. pt gets up with assist X2 using the gaitbelt and walker. pt has been NPO for a pacemaker placement this shift. pt is on room air. uses a cpap at night. family is present. pt is currently down for the procedure.
[2016-07-14] MEDS ORDERED: IOHEXOL 350mg/ml 200ml BOTTLE ONE (15:34)
[2016-07-14] MEDS ORDERED: EPINEPHRINE 1mg/10ml PFS ONE (15:34)
--- NOTE | 2016-07-14 17:00 | NUR ---
POST OP/PACEMAKER INSERTED PT TO RM 166 PER CART AFTER PACEMAKER INSERTION. PT ALERTED TO SELF, DENIES CHEST PAIN AND SOA, BP ELEVATED CHARTED. NS RUNNING AT 100ML/HR AT LEFT PERIPHERALLY FOREARM IV. SLING ON THE LEFT SIDE BECAUSE OF PACEMAKER INSERTION. SPLINT IN THE [place]AS[place]LL SIDE BECAUSE OF WRIST FRACTURE. DRESSING IN PLACE AT PACEMAKER INSERTION SITE INTACT WITH NO DRAINAGE IN THE LEFT UPPER CHEST.
[2016-07-14] MEDS ORDERED: OXYCODONE/APAP 5mg/325mg TABLET PO PRN (17:45)
[2016-07-14] MEDS ORDERED: ACETAMINOPHEN 325 MG TABLET PO PRN (17:45)
--- NOTE | 2016-07-14 19:08 | NUR ---
SHIFT SUMMARY PT IN BED AT THIS TIME AND FAMILY AT BEDSIDE. NS RUNNING AT 50ML/HR. HOB ELEVATED AT 30 DEGREES. DRESSING IS DRY AND INTACT. SLING ON THE LEFT ARM. BP IS DECREASING. PT IS ON RA.
--- NOTE | 2016-07-14 19:39 | PNPDOC ---
Subjective Date DATE: 07/14/16 TIME: 19:16 Subjective Mrs. Duran was seen prior to placement of pacemaker. She has no specific complaints indicating that she was not dizzy today and it had no difficulty breathing or chest pain/palpitations. She reported that she was having a little pain in her arm but no pressure in her hand or arm following modification in this plan yesterday. She denied nausea or back pain today. Nursing reports no orthostatic drop in her blood pressure with standing. Objective Vital Signs Vital signs Vital Signs Date Time Temp Pulse Resp B/P Pulse Ox O2 Delivery O2 Flow Rate FiO2 07/14/16 18:53 97.6 15 78 173/75 96 Room Air EXAM General-resting comfortably, NAD, alert HEENT-conjunctiva clear, sclera anicteric, conjugate gaze Lungs-breath sounds clear anteriorly, good airflow, respirations nonlabored Cardiac-regular rhythm, S1-S2 Abd-soft, nondistended, nontender, normal bowel sounds Ext-without edema including fingers of the right hand Skin-some bruising evident on digits right hand Neuro-wiggles fingers right hand without difficulty, sensation intact right hand Telemetry Rhythm: Sinus Rhythm, Sinus Bradycardia Height (Feet): 5 Height (Inches): 3.00 Weight (Kilograms): 78.600 Laboratory Laboratory Laboratory Tests 07/14/16 05:43 Calcium 8.8, phosphorus 3.9 EKG Telemetry strips reviewed-atrial fibrillation with slow ventricular response, no recurrent SVT over the past 24 hours Radiology Portable chest x-ray post pacemaker placement reviewed by myself demonstrating good lung expansion and left sided dual lead pacemaker, aortic calcification, and improvement in vascular markings from last film although markings remain slightly prominent. Sepsis Diagnostic Criteria Sepsis Confirmed/Suspected Infection: Yes SIRS Criteria: Acute mental status chg, WBC >=12,000 or <=4,000 Assessment & Plan Problems: (1) Tachycardia-bradycardia syndrome Status: Acute (2) Sepsis Status: Acute Assessment & Plan: Magnifications of Sepsis include the following- 1. UTI 2. Leukocytosis- WBC 14.6 3. Encephalopathy 4. Tachypneic- rate 26 (3) Encephalopathy Status: Acute (4) Fracture, metacarpal Status: Acute Qualifiers: Encounter type: subsequent encounter Metacarpal bone: fourth Fracture type: closed Metacarpal location: shaft Fracture alignment: displaced Laterality: right (5) HTN (hypertension) Status: Chronic (6) UTI (urinary tract infection) Status: Acute Assessment & Plan: Escherichia coli, multidrug resistant; treated fosfomycin on 07/11/16 (7) Acute kidney injury Status: Resolved Assessment & Plan: Present on admission (8) Hyperkalemia Status: Resolved Assessment & Plan: Present on admission (9) Diastolic CHF, chronic Status: Chronic (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 Duran is stable to proceed with pacemaker placement is planned when seen earlier in the day. Subsequently discussed with Dr. Contreras who indicated pacemaker placement was uneventful and suggested replacing amlodipine with extended release diltiazem for better control of SVT. Will discuss timing of resumption of Plavix with Dr. Contreras tomorrow. Blood pressure remains modestly elevated. Reassess with addition of diltiazem. May require higher dose calcium or beta christin. Creatinine up slightly today, nothing by mouth most of the day-recheck in a.m. Enalapril resumed yesterday. Edema of the right hand has improved and hand symptoms improved following splint modification yesterday. Continue PT/OT. May require prison or rehabilitation as she'll be unable to use either hand or arm effectively in the immediate future following left-sided pacemaker placement and right metacarpal fracture. Urinary tract infection treated. Afebrile, white count normal when last evaluated. Repeat CBC in the morning. Blood sugar stable on chemistries this morning. Plan/Intensity of Service Discussed with nursing and Dr. Contreras. Laboratory data reviewed. Telemetry strips reviewed by myself. Pacemaker placed. Chest x-ray reviewed by myself. Plans and treatment to date discussed with family member at bedside. Code Status Do Not Resuscitate Hospital Course Summary Disclaimer The hospital course summary below is not to be considered part of the above Progress Note. Hospital Course Summary Admit patient to inpatient status under the care of Dr. Rodarte for sepsis, urinary tract infection, encephalopathy, bradycardia, and medic carpal fracture. Patient was started on Levaquin IV for antimicrobial coverage while in the emergency room. Will discuss this further with attending as Levaquin may worsen encephalopathy. Place patient on half NS at 100 ML per hour for gentle hydration. Will monitor patient. Cardiac telemetry given bradycardia. Did review home medications and note that patient is on metoprolol 25 milligrams twice a day. Will hold this medication on admission In light of sepsis protocol. Will obtain serial venous lactate levels, blood cultures and urine cultures are pending. Continue patient on Plavix. Patient does have known coronary artery disease along with findings of subacute cerebral infarct. No neurologic deficits on exam. Monitor Accu-Cheks, diabetes is listed in patient's history, however, she is not currently on an oral agent. Will check a hemoglobin A1c on admission. SCDs to bilateral lower extremity for DVT prophylaxis Hyperkalemia noted on admission. However, this could be due to specimen analysis. Will recheck tomorrow am. Will recheck CBC and BMP tomorrow morning to follow blood counts, renal function , electrolytes Again, patient is a do not resuscitate and this orders written At time of discharge medical care will return to primary care provider, Dr. Maria Impression Encephalopathy with associated expressive aphasia and slurred speech, possibly secondary to UTI and dehydration Urinary tract infection Dehydration Acute kidney injury on chronic kidney disease-baseline creatinine 1.3 and is 1.8 today Dementia Left occipital infarct subacute versus chronic-no workup wanted by family Hypokalemia Right lower lobe lung nodule seen on shoulder x-ray-no workup wanted by family Atrial fibrillation with well-controlled rate COPD Obstructive sleep apnea 07/10/2016 Impression/plan Sepsis-improved with normalized white count. UTI with gram-negative rods-initiated Levaquin on 07/09/2016. Allergy to penicillin and cephalosporin. Encephalopathy with slurred speech, confusion and expressive aphasia which is typical for her when she has a urinary tract infection Acute kidney injury likely secondary to dehydration and urinary retention- improving Urinary retention with 700 ML's of urine seen on bladder scan-Valentin catheter placed 07/10/2016 Hyperkalemia-resolved History of CVA with stroke subacute or chronic seen on CT head-family does not want a workup Lung nodule seen on shoulder x-ray-no workup wanted by family. Dementia Bradycardia-likely secondary to metoprolol-we'll hold for now and monitor Atrial fibrillation-rate controlled, may need to restart a lower dose metoprolol tomorrow Obstructive sleep apnea-continue CPAP Hypertension-fair control Hyperglycemia-normal A1c, DC Accu-Cheks Decrease IV fluids. Continue Valentin catheter. Continue on telemetry. PT and OT have been consulted. Repeat lab tomorrow. Discussed care plan with son and nurse. 07/11/2016 Impression/plan Sepsis-improved with normalized white count. UTI with Escherichia coli resistant to Levaquin. Patient has Allergy to penicillin and cephalosporin. Discussed with pharmacist and will give fosfomycin 1 today Encephalopathy with slurred speech, confusion and expressive aphasia which is typical for her when she has a urinary tract infection-improving Acute kidney injury likely secondary to dehydration and urinary retention- improving daily Urinary retention with 700 ML's of urine seen on bladder scan-Valentin catheter placed 07/10/2016 Hyperkalemia-resolved History of CVA with stroke subacute or chronic seen on CT head-family does not want a workup Lung nodule seen on shoulder x-ray-no workup wanted by family. Family requests that we do not mention nodule to the patient because she will worry excessively Dementia Bradycardia-likely secondary to metoprolol-continue to hold. Consider consultation with Dr. Contreras Fall possibly secondary to UTI with encephalopathy versus bradycardia versus other Atrial fibrillation-rate controlled, may need to restart a lower dose metoprolol tomorrow Obstructive sleep apnea-continue CPAP Hypertension-fair control Left fourth metacarpal fracture which will make ambulation with her walker difficult Hyperglycemia-normal A1c, DC Accu-Cheks DC IV fluids. Continue Valentin catheter. Continue on telemetry. PT and OT have been consulted. Repeat lab tomorrow. Discussed care plan with nurse. Greater than 35 minutes of time spent seeing and evaluating the patient and determining care plan 07/12/16 Fosfomycin 3 gm PO x1 was given yesterday for treatment of UTI. Leukocytosis has resolved, WBC count 7.7 yesterday In light of hypertension she was started on Norvasc 2.5 mg daily in addition to current regimen of Lopressor 12.5 milligrams twice a day Consultation placed with Dr. Contreras in light of recent bradycardia Will review right metacarpal fracture, which is currently in Ortho-Glass splint. Will discuss this with Ortho regarding recommendations for therapy and possible splint replacement. Will encourage work with PT/OT 07/13/16-Ousmane Mrs. Duran reports she plans to proceed with and her son has consented to pacemaker placement for management of bradycardia. Blood pressure remains modestly elevated and beta christin is routinely being held due to slow heart rate. Orthostatic vital signs to be obtained prior to addition of further antihypertensives, following pacemaker placement will resume beta christin. With stabilization of renal function will resume enalapril at home dose. Reassess renal function and electrolytes in the morning. Right hand discomfort improved following modification in splint earlier today, Tylenol available as needed. Urinary tract infection treated. 07/14/16-Ousmane Mrs. Duran is stable to proceed with pacemaker placement is planned when seen earlier in the day. Subsequently discussed with Dr. Contreras who indicated pacemaker placement was uneventful and suggested replacing amlodipine with extended release diltiazem for better control of SVT. Blood pressure remains modestly elevated. Reassess with addition of diltiazem. May require higher dose calcium or beta christin. Creatinine up slightly today, nothing by mouth most of the day-recheck in a.m. Enalapril resumed yesterday. Edema of the right hand has improved and hand symptoms improved following splint modification yesterday. Continue PT/OT. May require prison or rehabilitation as she'll be unable to use either hand or arm effectively in the immediate future following left-sided pacemaker placement and right metacarpal fracture. Urinary tract infection treated. Afebrile, white count normal when last evaluated. Repeat CBC in the morning. Blood sugar stable on chemistries this morning. ANGELES FUNK MD Jul 14, 2016 19:22
[2016-07-14] MEDS: LATANOPROST 0.005% EYE DROPS 2.5 ML BOTTLE BOTH EYES SCH (20:13)
[2016-07-14] MEDS: DONEPEZIL 10 MG TABLET PO SCH (21:05)
--- NOTE | 2016-07-14 23:08 | NUR ---
RN and CORE EXTRUDER were unable to get an orthostatic blood pressure.
[2016-07-15] VITALS (10 sets, daily range): BP systolic 120–163; BP diastolic 59–86; PULSE 60–77; RESP 16–24; TEMP 96.1–98.5; O2SAT 92–95
--- NOTE | 2016-07-15 02:50 | NUR ---
Pt has cpap on. Is difficult to awaken. VSS
[2016-07-15] MEDS: NORMAL SALINE IV SCH (03:04)
[2016-07-15] MEDS: VANCOMYCIN IV SCH (03:04)
[2016-07-15 04:55] LABS: BASOPHILS # (AUTO) 0.1 T/MM3 (0-0.2); BASOPHILS % (AUTO) 0.6 % (0-2); EOSINOPHILS # (AUTO) 0.5 T/MM3 (0-0.5); EOSINOPHILS % (AUTO) 5.3 % (0-4); HCT - HEMATOCRIT 37.4 % (36-46); HGB - HEMOGLOBIN 12.3 GM/DL (12-16); IMMATURE GRANULOCYTE % (AUTO) 1.1 % (0.0-0.5); LYMPHOCYTES # (AUTO) 1.3 T/MM3 (1-4.8); LYMPHOCYTES % (AUTO) 14.4 % (23-45); MEAN CORPUSCULAR HGB 28.7 UUG (26-34); MEAN CORPUSCULAR HGB CONC(MCHC 32.9 GM/DL (31-37); MEAN CORPUSCULAR VOLUME 87.4 UM3 (80-100); MEAN PLATELET VOLUME 11.9 UM3 (9.4-12.4); MONOCYTES # (AUTO) 0.8 T/MM3 (0-0.8); MONOCYTES % (AUTO) 8.9 % (0-9.0); NEUTROPHILS #(AUTO)-ABSOLUTE 6.3 T/MM3 (1.8-7.7); NEUTROPHILS % (AUTO) 69.7 % (33-66); RED BLOOD COUNT 4.28 M/MM3 (4.00-5.20)
--- NOTE | 2016-07-15 05:00 | NUR ---
Pt continues to sleep soundly. VSS
[2016-07-15 05:04] LABS: ANION GAP 7 MEQ/L (5-15); BUN/CREATININE RATIO 16 RATIO (6-26); CHLORIDE 110 MEQ/L (98-107); CO2 - CARBON DIOXIDE 26 MEQ/L (22-30); GLOMERULAR FILTRATION RATE 52; GLUCOSE 112 MG/DL (65-110); MAGNESIUM 2.4 MG/DL (1.6-2.3); POTASSIUM 5.2 MEQ/L (3.6-5); SODIUM 143 MEQ/L (134-144)
--- NOTE | 2016-07-15 08:02 | NUR ---
ORTHO VS ATTEMPTED TO OBTAIN STANDING BP, PT UNABLE TO STAND LONG ENOUGH TO OBTAIN BP AND PT IS A VERY EXTENSIVE X2 ASSIST TO STAND.
--- NOTE | 2016-07-15 08:07 | DI ---
INDICATION: ITS.REASON: post ppm PROCEDURE: CHEST 2-VIEWS UPRIGHT (PA \T\ LAT) Encounter: Initial COMPARISON: July 14, 2016 FINDINGS: Left dual lead cardiac pacemaker is stable in appearance. No evidence of lead fracture or dislodgment. There is no pleural effusion or pneumothorax. The heart size, mediastinal contours and pulmonary vascularity are unchanged. IMPRESSION: Stable appearance of the left pacemaker without evidence of complication. .
--- NOTE | 2016-07-15 08:08 | DI ---
Indication: ITS.REASON: post ppm PROCEDURE: CHEST 1 VIEW: Encounter: Initial Comparison: November 23, 2014 Findings: New left-sided dual-lead cardiac pacemaker with right atrial and right ventricular leads. No evidence of lead fracture or dislodgment. No visible pneumothorax. Mild interstitial prominence but improved from the prior study. No pleural effusion seen. Heart size and mediastinal contours are stable. Calcified aortic arch. Impression: New left cardiac pacemaker without evidence of immediate complication. .
[2016-07-15] MEDS: DILTIAZEM CD 120mg CAP (QD) PO SCH (10:15)
[2016-07-15] MEDS: ENALAPRIL 10 MG TABLET PO SCH ×2 (10:16→20:19)
[2016-07-15] MEDS: GABAPENTIN 600 MG TABLET PO SCH ×2 (10:17→20:19)
--- NOTE | 2016-07-15 10:28 | NUR ---
VICKI CM VISITED PT. PT UP IN CHAIR. VICKI SPOKE WITH WINIFRED FROM [facility] REGARDING PT STATUS. WINIFRED AWARE TO CONTACT CM IF NEEDS ARISE.
--- NOTE | 2016-07-15 11:12 | NUR ---
ACTIVITY ORDERS RECEIVED FROM DR. DE SANTIAGO FOR ACTIVITY AND SLING. WILL ENTER ORDERS.
--- NOTE | 2016-07-15 11:42 | NUR ---
LOC NOTIFIED DR. FUNK OF PT DECREASE LOC. SHE WILL PUT IN ORDER.
[2016-07-15] MEDS: NORMAL SALINE 1,000 ML IV SCH (11:49)
[2016-07-15] MEDS ORDERED: NALOXONE 0.4mg/ml INJECTION IV ONE (12:15)
--- NOTE | 2016-07-15 15:49 | PNPDOC ---
Subjective Date DATE: 07/15/16 TIME: 15:33 Subjective Mrs. Duran has been seen several times through the day today. She was initially very somnolent and minimally arousable. Family members were at bedside. Following administration of Narcan the patient was much more alert and responded to questions though speech is slightly slurred. She denied dyspnea although describes a minor cough. She is not aware of palpitations. She describes some pain in her hand and discomfort in her upper left chest due to "tape pulling ". She's had no nausea or vomiting and reports she had a copious stool earlier today. After Narcan administration she was able to work with physical therapy and walk to the door without lightheadedness. Objective Vital Signs Vital signs Vital Signs Date Time Temp Pulse Resp B/P Pulse Ox O2 Delivery O2 Flow Rate FiO2 07/15/16 15:15 97.8 77 16 163/71 93 Room Air I/O 300/800 EXAM General-NAD, speech slightly mumbled but appropriate responses to questions HEENT-oropharynx clear, conjunctiva clear Lungs-respirations nonlabored, decreased airflow in general. Breath sounds clear anteriorly and laterally Cardiac-regular rhythm, S1 and S2, soft systolic murmur Abd-obese, soft, mild generalized tenderness without guarding, active bowel sounds Skin-pacemaker site left upper chest with Steri-Strips in place, no inflammation ; minor bruising at the base of right fingers with mild edema of the digits Ext-no lower extremity edema Neuro-sensation intact right fingers Psych-oriented 2 (name and year-cannot identify location), moving all extremities spontaneously Telemetry Rhythm: Sinus Rhythm, Sinus Bradycardia Height (Feet): 5 Height (Inches): 3.00 Weight (Kilograms): 79.000 Laboratory Laboratory Laboratory Tests 07/14/16 05:43 07/15/16 04:28 Laboratory Tests 07/15/16 04:28 EKG EKG 2 reviewed-paced rhythm with wide complex; telemetry strips reviewed intermittent pacing versus underlying sinus rhythm when not pacing Radiology Chest x-ray this morning NAD without evidence of pneumothorax by my review Sepsis Diagnostic Criteria Sepsis Confirmed/Suspected Infection: Yes SIRS Criteria: Acute mental status chg, WBC >=12,000 or <=4,000 Assessment & Plan Problems: (1) Tachycardia-bradycardia syndrome Status: Acute (2) Somnolence Status: Acute Assessment & Plan: Postprocedure; improved with Narcan 4/6 (3) Sepsis Status: Acute Assessment & Plan: Magnifications of Sepsis include the following- 1. UTI 2. Leukocytosis- WBC 14.6 3. Encephalopathy 4. Tachypneic- rate 26 (4) Encephalopathy Status: Acute (5) Fracture, metacarpal Status: Acute Qualifiers: Encounter type: subsequent encounter Metacarpal bone: fourth Fracture type: closed Metacarpal location: shaft Fracture alignment: displaced Laterality: right (6) HTN (hypertension) Status: Chronic (7) UTI (urinary tract infection) Status: Acute Assessment & Plan: Escherichia coli, multidrug resistant; treated fosfomycin on 07/11/16 (8) Acute kidney injury Status: Resolved Assessment & Plan: Present on admission (9) Hyperkalemia Status: Acute Assessment & Plan: Present on admission (10) Diastolic CHF, chronic Status: Chronic (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 Duran is much more alert following administration of Narcan. She received a combination of Benadryl, Versed, and fentanyl in the laboratory development technician yesterday for pacemaker implantation. Continue to monitor closely. Pacemaker site clean and dry, interrogation this morning reveals normal pacemaker function and intermittently pacing. No recurrent SVT-diltiazem initiated this morning. Blood pressure remains moderately elevated without orthostasis yesterday morning , unable to check orthostatics this morning due to somnolence. Continue to monitor with addition of diltiazem before further modification in antihypertensive regimen. Potassium mildly elevated today, minor hemolysis reported. Enalapril restarted several days ago. Recheck electrolytes in the morning. Renal function stable, stage III CKD. Continue low-volume fluids due to poor oral intake and administration of dye in catheter lab yesterday. Adequate pain control with current regimen for metacarpal fracture right hand. Anticipate discharge to long-term in the near future. Do not believe patient can be safely discharged today due to excess somnolence this morning. Plan/Intensity of Service Discussed with nursing, family members, and Dr. Contreras. Laboratory data reviewed. Telemetry strips reviewed by myself. Pacemaker placed yesterday. Chest x-ray reviewed by myself. Code Status Do Not Resuscitate Hospital Course Summary Disclaimer The hospital course summary below is not to be considered part of the above Progress Note. Hospital Course Summary Admit patient to inpatient status under the care of Dr. Rodarte for sepsis, urinary tract infection, encephalopathy, bradycardia, and medic carpal fracture. Patient was started on Levaquin IV for antimicrobial coverage while in the emergency room. Will discuss this further with attending as Levaquin may worsen encephalopathy. Place patient on half NS at 100 ML per hour for gentle hydration. Will monitor patient. Cardiac telemetry given bradycardia. Did review home medications and note that patient is on metoprolol 25 milligrams twice a day. Will hold this medication on admission In light of sepsis protocol. Will obtain serial venous lactate levels, blood cultures and urine cultures are pending. Continue patient on Plavix. Patient does have known coronary artery disease along with findings of subacute cerebral infarct. No neurologic deficits on exam. Monitor Accu-Cheks, diabetes is listed in patient's history, however, she is not currently on an oral agent. Will check a hemoglobin A1c on admission. SCDs to bilateral lower extremity for DVT prophylaxis Hyperkalemia noted on admission. However, this could be due to specimen analysis. Will recheck tomorrow am. Will recheck CBC and BMP tomorrow morning to follow blood counts, renal function , electrolytes Again, patient is a do not resuscitate and this orders written At time of discharge medical care will return to primary care provider, Dr. Maria 07/11/2016 Impression/plan Sepsis-improved with normalized white count. UTI with Escherichia coli resistant to Levaquin. Patient has Allergy to penicillin and cephalosporin. Discussed with pharmacist and will give fosfomycin 1 today Encephalopathy with slurred speech, confusion and expressive aphasia which is typical for her when she has a urinary tract infection-improving Acute kidney injury likely secondary to dehydration and urinary retention- improving daily Urinary retention with 700 ML's of urine seen on bladder scan-Valentin catheter placed 07/10/2016 Hyperkalemia-resolved History of CVA with stroke subacute or chronic seen on CT head-family does not want a workup Lung nodule seen on shoulder x-ray-no workup wanted by family. Family requests that we do not mention nodule to the patient because she will worry excessively Dementia Bradycardia-likely secondary to metoprolol-continue to hold. Consider consultation with Dr. Contreras Fall possibly secondary to UTI with encephalopathy versus bradycardia versus other Atrial fibrillation-rate controlled, may need to restart a lower dose metoprolol tomorrow Obstructive sleep apnea-continue CPAP Hypertension-fair control Left fourth metacarpal fracture which will make ambulation with her walker difficult Hyperglycemia-normal A1c, DC Accu-Cheks DC IV fluids. Continue Valentin catheter. Continue on telemetry. PT and OT have been consulted. Repeat lab tomorrow. Discussed care plan with nurse. Greater than 35 minutes of time spent seeing and evaluating the patient and determining care plan 07/12/16 Fosfomycin 3 gm PO x1 was given yesterday for treatment of UTI. Leukocytosis has resolved, WBC count 7.7 yesterday In light of hypertension she was started on Norvasc 2.5 mg daily in addition to current regimen of Lopressor 12.5 milligrams twice a day Consultation placed with Dr. Contreras in light of recent bradycardia Will review right metacarpal fracture, which is currently in Ortho-Glass splint. Will discuss this with Ortho regarding recommendations for therapy and possible splint replacement. Will encourage work with PT/OT 07/13/16-Ousmane Duran reports she plans to proceed with and her son has consented to pacemaker placement for management of bradycardia. Blood pressure remains modestly elevated and beta christin is routinely being held due to slow heart rate. Orthostatic vital signs to be obtained prior to addition of further antihypertensives, following pacemaker placement will resume beta christin. With stabilization of renal function will resume enalapril at home dose. Reassess renal function and electrolytes in the morning. Right hand discomfort improved following modification in splint earlier today, Tylenol available as needed. Urinary tract infection treated. 07/14/16-Ousmane Duran is stable to proceed with pacemaker placement is planned when seen earlier in the day. Subsequently discussed with Dr. Contreras who indicated pacemaker placement was uneventful and suggested replacing amlodipine with extended release diltiazem for better control of SVT. Blood pressure remains modestly elevated. Reassess with addition of diltiazem. May require higher dose calcium or beta christin. Creatinine up slightly today, nothing by mouth most of the day-recheck in a.m. Enalapril resumed yesterday. Edema of the right hand has improved and hand symptoms improved following splint modification yesterday. Continue PT/OT. May require long-term or rehabilitation as she'll be unable to use either hand or arm effectively in the immediate future following left-sided pacemaker placement and right metacarpal fracture. Urinary tract infection treated. Afebrile, white count normal when last evaluated. Repeat CBC in the morning. Blood sugar stable on chemistries this morning. 07/15/16 Mrs. Duran is much more alert following administration of Narcan. She received a combination of Benadryl, Versed, and fentanyl in the laboratory development technician yesterday for pacemaker implantation. Continue to monitor closely. Pacemaker site clean and dry, interrogation this morning reveals normal pacemaker function and intermittently pacing. No recurrent SVT-diltiazem initiated this morning. Blood pressure remains moderately elevated without orthostasis yesterday morning , unable to check orthostatics this morning due to somnolence. Continue to monitor with addition of diltiazem before further modification in antihypertensive regimen. Potassium mildly elevated today, minor hemolysis reported. Enalapril restarted several days ago. Recheck electrolytes in the morning. Renal function stable, stage III CKD. Continue low-volume fluids due to poor oral intake and administration of dye in catheter lab yesterday. Adequate pain control with current regimen for metacarpal fracture right hand. Anticipate discharge to long-term in the near future. Do not believe patient can be safely discharged today due to excess somnolence this morning. ANGELES FUNK MD Jul 15, 2016 15:37
--- NOTE | 2016-07-15 15:56 | PNPDOC ---
Subjective Date DATE: 07/15/16 TIME: 15:50 Subjective was lethargic this am and quickly woke up after Narcan. has no c/o of cp dyspena or phlegm.appears comfortable. Objective Vital Signs Vital signs Vital Signs 07/15/16 07/15/16 07/15/16 07/15/16 03:57 07:34 07:34 07:36 Temp 97.6 97.1 Pulse 61 60 63 60 Resp 18 18 B/P 120/70 153/71 153/71 153/71 Pulse Ox 95 94 O2 Delivery CPAP Room Air 07/15/16 07/15/16 07/15/16 07/15/16 09:26 12:00 12:45 13:33 Temp 96.6 Pulse 60 68 75 90 Resp 18 16 18 B/P 162/86 Pulse Ox 92 O2 Delivery Room Air 07/15/16 07/15/16 07/15/16 13:33 13:33 15:15 Temp 97.8 Pulse 89 77 Resp 16 16 B/P 163/71 Pulse Ox 93 O2 Delivery Room Air Telemetry Rhythm: Apaced Height (Feet): 5 Height (Inches): 3.00 Weight (Kilograms): 79.000 General Alert, Orientated x 3 Eyes (Brief) EOMI, PERRL, NOT FOUND: trauma ENMT (Brief) mucosa moist Neck (Brief) NOT FOUND: JVD Respiratory (Brief) rales (L base) Cardiovascular (Brief) other (distant), regular rate, regular rhythm Abdomen (Brief) BS normo active x4, soft, NOT FOUND: distended, tender Extremities (Brief) Extremity : Extremity Finding: NOT FOUND: clubbing, cyanosis, edema Lymphatic (Brief) NOT FOUND: lymphedema Musculoskeletal (Brief) NOT FOUND: deformity, loss of motion Integumentary (Brief) dry, other (PPM site looks good w/o swelling erythema orDc), pink, warm Neurologic (Brief) FOUND: cranial 2-12 intact, motor, sensory, NOT FOUND: facial droop, ptosis Psychiatric (Brief) alert, attentive, normal affect Laboratory Laboratory Laboratory Tests 07/15/16 04:28 Laboratory Tests 07/15/16 04:28 EKG A paced RB w magnet AV paced pacemaker analysis nL parameters Radiology CXR good PPm position no eveidecdne of complioactions Sepsis Diagnostic Criteria Sepsis Confirmed/Suspected Infection: Yes SIRS Criteria: Acute mental status chg, WBC >=12,000 or <=4,000 Assessment & Plan Assessment syncope bardycardia tachybrady syndrome CAD UTI PCN/cepha. allergy pacer tomorrow . prepacer orders. chlorhexadine bath Iv ATB and IVF etc..plavix on hold ,SCD's on. pt and son agree and understand the risks and possible compliocations Plan/Intensity of Service s/p PPM increase BB back tro 25 mg BID . cont. w Diltizem as dw you. stable. sign off. RTC incsion check 1-2 wks DASHA DE SANTIAGO MD Jul 15, 2016 15:54
[2016-07-15] MEDS: MINOCYCLINE 50 MG CAPSULE PO SCH ×2 (17:27→20:19)
--- NOTE | 2016-07-15 19:33 | NUR ---
SHIFT SUMMARY NO VOIDS SINCE OLIVIER REMOVAL. PT CONTINUES TO BE MORE AWAKE AND ALERT SINCE NARCAN ADMINISTRATION AT NOON. PT HAS BEEN EATING MEALS WELL SINCE THEN.
[2016-07-15] MEDS: LATANOPROST 0.005% EYE DROPS 2.5 ML BOTTLE BOTH EYES SCH (20:19)
[2016-07-15] MEDS: DONEPEZIL 10 MG TABLET PO SCH (22:01)
[2016-07-16] VITALS (7 sets, daily range): BP systolic 143–161; BP diastolic 67–80; PULSE 59–77; RESP 16; TEMP 96.9–97.5; O2SAT 91–96
--- NOTE | 2016-07-16 00:36 | NUR ---
STATUS PT HAS NOT VOIDED SINCE THE OLIVIER WAS DC'D. BLADDER SCANNED. HIGHEST RESIDUE IS 448. PT WAS ASSISTED TO THE COMMODE BY 2 STAFF. PT VOIDED LESS THAN 100CC. WILL CONTINUE TO MONITOR. ON CPAP SINCE HS.
[2016-07-16 05:45] LABS: ANION GAP 7 MEQ/L (5-15); BUN/CREATININE RATIO 14 RATIO (6-26); CALCIUM 8.7 MG/DL (8.4-10.2); CHLORIDE 108 MEQ/L (98-107); CO2 - CARBON DIOXIDE 27 MEQ/L (22-30); GLOMERULAR FILTRATION RATE 52; GLUCOSE 114 MG/DL (65-110); POTASSIUM 3.6 MEQ/L (3.6-5); SODIUM 142 MEQ/L (134-144)
--- NOTE | 2016-07-16 06:19 | NUR ---
SUMMARY PT SLEPT WELL THIS SIFT. PT IS ALERT AND ORIENTED. ABLE TO VOICE NEEDS TO THE STAFFS. DENIED ANY PAIN THIS SHIFT. NO PRN GIVEN THIS SHIFT. PT SLEPT CPAP ON ALL NIGHT. LEFT ARM SLING IN PLACE ALL NIGHT. PACEMAKER INCISION CLEAN, DRY AND NO SIGNS OF INFECTION. PT VOIDED ONCE THIS SHIFT WHEN SHE WAS ASSISTED TO THE COMMODE BY STAFFS. 2 PERSON ASSIST TRANSFER WITH A WALKER. CONTINUE ON IV FLUIDS THAT SHE TOLERATES WELL.
[2016-07-16] MEDS: MINOCYCLINE 50 MG CAPSULE PO SCH (08:56)
[2016-07-16] MEDS: DILTIAZEM CD 120mg CAP (QD) PO SCH (08:56)
[2016-07-16] MEDS: ENALAPRIL 10 MG TABLET PO SCH (08:57)
[2016-07-16] MEDS: GABAPENTIN 600 MG TABLET PO SCH (08:57)
[2016-07-16] MEDS: NORMAL SALINE 1,000 ML IV SCH ×2 (08:58→09:45)
[2016-07-16] MEDS: CLOPIDOGREL 75 MG TABLET PO SCH (09:07)
--- NOTE | 2016-07-16 11:19 | NUR ---
[facility]ICK[facility] CM VISITED PT. PT IS AWARE THAT SHE WILL RETURN TO [facility] TODAY. PT IS AWARE THAT THEY WILL TRANSPORT HER AT 3:00PM. PT IS AWARE THAT CM SPOKE WITH PT SON DARLEEN REGARDING THE D/C PLAN FOR TODAY. PT/SON IS AWARE TO CONTACT CM IF NEEDS ARISE.
--- NOTE | 2016-07-16 11:21 | DI ---
Indication: ITS.REASON: f/u on hand fracture PROCEDURE: HAND RIGHT 3 VIEW: Encounter: Initial Comparison: Wrist radiograph dated July 09, 2016 Findings: Splinting material obscures fine bony detail. Spiral fracture of the fourth metacarpal appears stable in alignment. No obvious new fracture or dislocation. Impression: Stable alignment of the fourth metacarpal fracture. .
[2016-07-16] MEDS ORDERED: DILT120C91 PO (13:01)
[2016-07-16] MEDS ORDERED: TRAM50TA4 PO (13:01)
[2016-07-16] MEDS ORDERED: MINO50CA PO (13:01)
--- NOTE | 2016-07-16 13:16 | PDOCECFAO ---
Admission Orders Admission Orders Admit to: Longterm Allergies: Coded Allergies: cephalexin (Verified Allergy, Intermediate, 07/09/16) Penicillins (Verified Allergy, Unknown, 07/09/16) iodine (Verified Allergy, Unknown, 07/09/16) milk (Verified Allergy, Unknown, 07/09/16) gluten (Verified Adverse Reaction, Intermediate, diarrhea, stomach cramps , 07/13/16) Admitting Diagnosis Uti,[place],Fall Admitting Physician Cassandra Romeo MD Code Status Do Not Resuscitate Anticipated LOS: 30 days or less Rehab Potential: Good Rehab Prognosis: Good Diet: No Concentrated Sweets, Soft Wound/Incision Care: Pacemaker site Steri-Stripped and open to air Splint right hand May use Facility Protocol /SO: Yes May Have Flu Vaccine: Yes Evaluations/Treat: Speech, PT (for [place], right platform), OT Longterm Certification I certify that SNF services are required to be given on an Inpatient basis because of the patients need for care home care on a continuing basis for the condition(s) for which he/she received inpatient hospital services prior to his/her transfer to the SNF. SNF inpatient care is necessary for the following reasons C/P Assessment/Care, Neuro Assessment (right hand), Wound Care/Assessment ( pacemaker site) Cardiac or Respiratory Arrest In Event of Arrest: Do Not Start CPR Resident is Aware of Diagnosis: Yes Additional Orders: BMP on 07/20-diagnosis hypertension Monitor urine output, bladder scan as needed (Valentin catheter removed 07/15 and has had incomplete bladder emptying since which has not required straight catheterization) Follow-up with Dr. Maria 1 week Follow-up with Dr. Contreras July 27 at 1:45 PM for pacemaker check CASSANDRA ROMEO MD Jul 16, 2016 13:16
--- NOTE | 2016-07-16 13:52 | DSPDOC ---
General Date Date DATE: 07/16/16 TIME: 13:17 Attending Physician Cassandra Romeo MD Admitting Physician Cassandra Romeo MD Consulting Physician Dasha Contreras MD Admitting Diagnosis uti, bradycadia, fall Discharge Diagnosis 1. Fall (versus syncope) 2. Tachybradycardia syndrome 3. SVT, paroxysmal 4. Fracture right fourth metacarpal, acute/traumatic with minimal displacement 5. Status post pacemaker placement 6. Multidrug resistant Escherichia coli UTI with sepsis 7. Acute kidney injury on chronic kidney disease-stage III 8. Hypertension 9. Hyperkalemia, resolved 10. Obstructive sleep apnea 11. Chronic diastolic heart failure 12. Diabetes mellitus, type II, controlled Procedures Dual-chamber pacemaker placement on 07/14/16 Laboratory Laboratory Tests Test 07/15/16 04:28 07/16/16 04:52 White Blood Count 9.0T/MM3 (4.5-11.0) Red Blood Count 4.28M/MM3 (4.00-5.20) Hemoglobin 12.3GM/DL (12-16) Hematocrit 37.4% (36-46) Mean Corpuscular Volume 87.4UM3 (80-100) Mean Corpuscular Hemoglobin 28.7UUG (26-34) Mean Corpuscular Hemoglobin Concent 32.9GM/DL (31-37) RDW Standard Deviation 45.9FL (36.9-50.2) Platelet Count 177T/MM3 (130-400) Mean Platelet Volume 11.9UM3 (9.4-12.4) Immature Granulocyte % (Auto) 1.1% (0.0-0.5) Neutrophils (%) (Auto) 69.7% (33-66) Lymphocytes (%) (Auto) 14.4% (23-45) Monocytes (%) (Auto) 8.9% (0-9.0) Eosinophils (%) (Auto) 5.3% (0-4) Basophils (%) (Auto) 0.6% (0-2) Absolute Immature Granulocyte (auto 0.10T/MM3 (0.00-0.03) Absolute Neutrophils (auto) 6.3T/MM3 (1.8-7.7) Absolute Lymphocytes (auto) 1.3T/MM3 (1-4.8) Absolute Monocytes (auto) 0.8T/MM3 (0-0.8) Absolute Eosinophils (auto) 0.5T/MM3 (0-0.5) Absolute Basophils (auto) 0.1T/MM3 (0-0.2) Turbidity < 20 (0-20) < 20 (0-20) Sodium Level 143MEQ/L (134-144) 142MEQ/L (134-144) Potassium Level 5.2MEQ/L (3.6-5) 3.6MEQ/L (3.6-5) Chloride Level 110MEQ/L (98-107) 108MEQ/L (98-107) Carbon Dioxide Level 26MEQ/L (22-30) 27MEQ/L (22-30) Anion Gap 7MEQ/L (5-15) 7MEQ/L (5-15) Blood Urea Nitrogen 16.0MG/DL (7-17) 14.0MG/DL (7-17) Creatinine 1.0MG/DL (0.7-1.2) 1.0MG/DL (0.7-1.2) Glomerular Filtration Rate Calc 52 52 BUN/Creatinine Ratio 16RATIO (6-26) 14RATIO (6-26) Glucose Level 112MG/DL (65-110) 114MG/DL (65-110) Calculated Osmolality 277MOSM/KG (261-280) 275MOSM/KG (261-280) Calcium Level 9.0MG/DL (8.4-10.2) 8.7MG/DL (8.4-10.2) Magnesium Level 2.4MG/DL (1.6-2.3) Icterus Index < 2 (0-7) < 2 (0-7) Chemistry Specimen Hemolysis 38 (0-25) < 15 (0-25) On admission creatinine 1.8, potassium 5.2, white count 14.6, hemoglobin 14.9. A1c 6.0, TSH 1.6 Microbiology URINE CULTURE. Final 07/11/16 Organism 1 ESCHERICHIA COLI COLONY COUNT >100,000 CFU/ml E COLI INTERP DANIEL ------ --------- AMOX/CLAV ACID S 8 AMPICILLIN R >=32 CEFAZOLIN S <=4 CEFEPIME S <=1 CEFTAZIDIME S <=1 CEFTRIAXONE S <=1 CIPROFLOXACIN R >=4 ERTAPENEM S <=0.5 GENTAMICIN R >=16 LEVOFLOXACIN R >=8 TOBRAMYCIN I 8 TRIMETH/SULFA R >=320 PIPERACILL/TAZO S <=4 Repeat urine culture on 07/11 with same organism/sensitivities. Blood cultures 2 drawn 07/09 negative after 5 days Radiology X-ray of the right wrist on admission demonstrated a closed spiral minimally displaced fourth metacarpal fracture. Follow-up film of the right hand on 07/16 demonstrated stable alignment of the fracture. X-ray of the right shoulder on admission demonstrated no acute bony abnormality of the shoulder but incidentally 1.5 cm right lower lobe pulmonary nodule was identified. Pelvis films on admission without evidence of fracture or other bony abnormality. Noncontrast CT of the head on admission was without evidence of acute traumatic injury however there was evidence of an chronic or subacute left occipital ischemic infarct. An old infarct in the right thalamus was also present. CT of the cervical spine demonstrated multilevel degenerative changes but no traumatic abnormalities. Chest x-rays on 07/14 and 07/15 following pacemaker placement revealed NAD and no evidence of pneumothorax. Pacemaker lead placement was stable. History of Present Illness Patient is an 86-year-old female who currently resides at [place]. It is reported that she was sitting on the toilet this morning and had an unwitnessed fall. snf staff reported that patient allegedly struck her head, however, event was unwitnessed. Patient was brought to the emergency room today for further evaluation. Lab for studies were obtained. Patient was found have an elevated white count at 14.6, hemoglobin 14.9, hematocrit 45.7, platelet count 243, neutrophils 80.9. Sodium is 144, potassium 5.2, BUN 26, creatinine 1.8. Baseline creatinine is found to be 1.0 (4 months ago). Gluecose is 123. Troponin less than 0.012, venous lactate 2.2. Urinalysis was obtained showing specific gravity of 1.010, positive nitrates, 1+ leukocyte esterase, 2+ bacteria. Patient is afebrile at 96.8. Patient has been intermittently bradycardic and at one point. Heart rate was in the 40s. Twelve-lead EKG is obtained showing sinus bradycardia. CT scan of the C-spine was negative for acute trauma, CT scan of the head did show a subacute left occipital lobe infarct. X-ray of pelvic and shoulders were both negative. X-ray of the right wrist did indicate a 4th metacarpal fracture of the midshaft. Patient was placed in or the Splint for support. The hospitalist services were contacted and accepted patient for inpatient admission for further evaluation and treatment. A shunt is seen on initial examination. She is lying in the bed. She is alert, however, is confused. She is able to identify her son in the room, however, is unclear of her location or the year. Son reports that she does have some "dementia". However, she has been more confused over the last several days. He reports that she usually is confused when she has a acute infectious process. Patient is unable to participate in review of systems or answer specific questions. All information is obtained from her son at the bedside. We did discuss advanced directives and son does verify that patient is a do not resuscitate. Hospital Course Admit patient to inpatient status under the care of Dr. Rodarte for sepsis, urinary tract infection, encephalopathy, bradycardia, and right fourth metacarpal fracture after fall or syncope. Patient was seen by the orthopedic service for evaluation of the right metacarpal fracture and placed in a splint. Follow-up with orthopedics in 3-4 weeks with repeat imaging at that time was recommended. Gentle range of motion of her fingers was recommended but the right hand should not be used for lifting or gripping or weightbearing in the intervening time. Patient was started on Levaquin IV for antimicrobial coverage while in the emergency room. Urine culture grew out [id number] Escherichia coli which was ultimately treated with fosfomycin on 07/11 due to patient drug allergies and organism resistance pattern. Family attributed presenting encephalopathy and slurred speech to urinary tract infection. Mrs. Duran was treated with 1/2NS at 100 ML per hour for gentle hydration on admission with lower rate later in the stay. Lasix was held throughout the hospitalization as well as potassium supplementation due to combined acute kidney injury and hyperkalemia. Fluids were discontinued prior to discharge but diuretics/potassium remain on hold. Renal function stabilized within 48 hours of admission and there was no deterioration in oxygenation or indication of heart failure as a result of hydration. Bradycardia was identified on admission with heart rates dropping into the 40s at times. The patient was not orthostatic when she was eventually able to stand to obtain orthostatic vitals. Metoprolol dose held on admission due to bradycardia arrhythmia but later resumed at 12.5 mg twice a day after an episode of SVT. Dr. Contreras was consulted and ultimately recommended pacemaker placement due to persistent bradycardia, uncontrolled hypertension, and intermittent SVT. Dual-chamber pacemaker was placed on 07/14 and well tolerated. The patient was somnolent the day after pacemaker placement requiring Narcan administration once. Following pacemaker placement diltiazem was initiated to minimize recurrent SVT and metoprolol dose was increased back to 25 mg twice a day with improvement in blood pressure control. Enalapril had been restarted at prior home dose following stabilization of renal function. She is discharged on combination of enalapril, metoprolol, and diltiazem ER with improved blood pressure control but this will require continued monitoring. Initial imaging obtained on admission revealed a 1.5 cm nodule in the right lower lobe which family requested not be evaluated further due to the patient's underlying dementia. They also asked that patient not be notified of the finding as it would chest create anxiety for her. CT of the head demonstrated an old stroke in addition to an interval ischemic stroke which family also did not want further evaluation of. Plavix was continued as an antiplatelet agent. There were no overt neurological deficits on examination. On 07/16 the patient was alert and described only minor pain in her right hand which has not required narcotic pain medications. She denied palpitations or dyspnea. Valentin catheter was removed yesterday and the patient has voided spontaneously although does not always empty bladder fully. Straight catheterization has not been needed. On examination sensation is intact in the digits of the right hand and there is minimal edema of the right fingers. Breath sounds are clear and cardiac rhythm regular. There is minor discomfort on palpation of the abdomen but no guarding. Pacemaker site is clean and dry with Steri-Strips in place. Telemetry strips demonstrate paced rhythm with occasional intervals of underlying sinus rhythm. Repeat films of the right hand demonstrates stable fracture of the right fourth metacarpal. Creatinine today is 1.0 with potassium of 3.6. Patient is felt stable for discharge with return to [facility] this time. >30 minutes spent on patient care and discharge care coordination today on the date of discharge. -- Problems: (1) Tachycardia-bradycardia syndrome Status: Acute (2) Paroxysmal SVT (supraventricular tachycardia) Status: Acute (3) Somnolence Status: Acute Assessment & Plan: Postprocedure; improved with Narcan 07/15 (4) Fracture, metacarpal Status: Acute Assessment & Plan: Right fourth (5) Sepsis Status: Resolved Assessment & Plan: Magnifications of Sepsis include the following- 1. UTI 2. Leukocytosis- WBC 14.6 3. Encephalopathy 4. 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 Incidentally noted on x-ray of right shoulder, family requested no further workup in that patient not be notified of presents (22) Dementia Status: Chronic (23) CVA (cerebral vascular accident) Status: Chronic Code Status Do Not Resuscitate Home Meds Active Scripts Diltiazem HCl (Cardizem Cd) 120 Mg Cap.er.24h, 120 MG PO DAILY for hypertension/ SVT, #30 CAP Prov:CASSANDRA ROMEO MD 07/16/16 Minocycline HCl (Minocin) 50 Mg Capsule, 50 MG PO BID for prophylaxsis after pacemaker for 6 Days, #12 CAP Prov:CASSANDRA ROMEO MD 07/16/16 Tramadol HCl (Tramadol HCl) 50 Mg Tablet, 25 MG PO HS Y for pain, #30 Prov:CASSANDRA ROMEO MD 07/16/16 Reported Medications Bisacodyl (Bisacodyl) 10 Mg Supp.rect, 10 MG RECTALLY DAILY Y for CONSTIPATION 07/09/16 Guaifenesin (Guaifenesin ER) 600 Mg Tab.er.12h, 600 MG PO Q12H Y for CONGESTION 07/09/16 Lorazepam (Lorazepam) 0.5 Mg Tablet, 0.5 MG PO Q6H Y for ANXIETY/AGITATION 07/09/16 Donepezil HCl (Donepezil HCl) 10 Mg Tablet, 10 MG PO HS 07/09/16 Acetaminophen (Acetaminophen) 500 Mg Tablet, 1000 MG PO Q4-6H Y for PAIN 07/09/16 Polyvinyl Alcohol (Artificial Tears) 15 Ml Drops, 1 DROP BOTH EYES QID Y for DRY EYES 07/09/16 Mag Hydrox/Al Hydrox/Simeth (Alum-Mag Hydroxide-Simeth Liq) 360 Ml Oral.susp, 30 ML PO Q4H Y for EPIGASTRIC DISTRESS 07/09/16 Nystatin (Nyamyc) 15 Gm Powder, 1 APPLIC TOP BID Y for PRN ORDERS APPLY UNDER ABD FOLD AND/OR GROIN BID PRN 07/09/16 Polyethylene Glycol 3350 (Polyethylene Glycol 3350) 255 Gm Powder, 17 GM PO DAILY Y for CONSTIPATION 07/09/16 Clopidogrel Bisulfate (Clopidogrel) 75 Mg Tablet, 75 MG PO DAILY 07/09/16 Enalapril Maleate (Enalapril Maleate) 10 Mg Tablet, 10 MG PO BID 07/09/16 Gabapentin (Gabapentin) 600 Mg Tablet, 600 MG PO BID 07/09/16 Metoprolol Tartrate (Metoprolol Tartrate) 25 Mg Tablet, 25 MG PO BID 07/09/16 Budesonide/Formoterol Fumarate (Symbicort 160-4.5 Mcg Inhaler) 10.2 Gm Hfa.aer.ad, 2 PUFF INH BID 07/09/16 Calcium Carbonate/Vitamin D3 (Calcium + Vitamin D Tablet) 1 Each Tablet, 1 TAB PO DAILY 11/23/14 Albuterol Sulfate (Proair HFA 90 mcg/actuation) 8.5 Gm Hfa.aer.ad, 2 PUFF INH Q4HR Y for WHEEZING 01/08/14 Latanoprost (Latanoprost) 2.5 Ml Drops, 1 DROP BOTH EYES PM 01/08/14 Omeprazole (Prilosec) 40 Mg Capsule.dr, 20 MG PO ACB 10/13/13 Discontinued Reported Medications Potassium Chloride (Potassium Chloride) 20 Meq Tab.er.prt, 20 MEQ PO BID 07/09/16 Furosemide (Lasix) 40 Mg Tablet, 40 MG PO DAILY 10/13/13 Face to Face Encounter I met with patient on the day of dismissal and discussed follow up appointments , medications, and safety plan. Discharge Disposition [facility] Copies To 1: DASHA CONTRERAS MD; EVON PAYAN MD; EDUARD CLARK MD Documentation Requirements Documenting Diagnosis Altered Mental Status CHF Type and Acuity Type of CHF: Diastolic Acuity CHF: Chronic Chronic Kidney Disease Stage of CKD: Stage 3 GFR 30-59 Urosepsis Clarification of Urosepsis: Sepsis from UTI Alt. Mental Status/Confusion Check if condition above is: Acute Renal Insufficiency Renal Insufficiency: Acute on Chronic Renal Failure Classification of CKD: Stage 3 GFR 30-59 BMI Low or High Assoc. dx for low or high BMI: Obesity 30-34.9 Diabetes Diabetes Type: Type 2 Diabetes Is Diabetes Contolled?: Contolled Related to Diabetes: Not related to CASSANDRA ROMEO MD Jul 16, 2016 13:23
--- NOTE | 2016-07-16 14:12 | NUR ---
CM D/C TIME OUT IS COMPLETE. ALL ORDERS HAVE BEEN SENT TO POST ACUTE CARE SETTING. WINIFRED FROM [facility] IS AWARE TO CONTACT CM IF NEEDS ARISE.
--- NOTE | 2016-07-16 15:21 | NUR ---
DISMISSAL PT DISMISSED TO [facility] HOME VIA WHEELCHAIR WITH BREAD SLICER MACHINE AT 1515. PT BELONGINGS PACKED, PT DRESSED, IVL'S PULLED AND REPORT CALLED TO RECEIVING RN.
== END 2016-07-16 15:15 | DRG 871 ==
LOC: ED 11:58 → EDHOLD 14:49 → MED 15:15
PROVIDERS: ADMIT Internal Medicine; ATTEND Internal Medicine
PROC: 2W3CX1Z Immobilization of Right Lower Arm using Splint (ICD-10-PCS; 2016-07-09)
PROC: 0JH606Z Insertion of Pacemaker, Dual Chamber into Chest Subcutaneous Tissue and Fascia, Open Approach (ICD-10-PCS; principal; 2016-07-14)
PROC: 02H63JZ Insertion of Pacemaker Lead into Right Atrium, Percutaneous Approach (ICD-10-PCS; 2016-07-14)
PROC: 02HK3JZ Insertion of Pacemaker Lead into Right Ventricle, Percutaneous Approach (ICD-10-PCS; 2016-07-14)
DX: A41.9 Sepsis, unspecified organism (principal); G93.41 Metabolic encephalopathy; N39.0 Urinary tract infection, site not specified; N17.9 Acute kidney failure, unspecified; I50.32 Chronic diastolic (congestive) heart failure; I47.1 Supraventricular tachycardia; I13.0 Hypertensive heart and chronic kidney disease with heart failure and stage 1 through stage 4 chronic kidney disease, or unspecified chronic kidney disease; I49.5 Sick sinus syndrome; S62.324A Displaced fracture of shaft of fourth metacarpal bone, right hand, initial encounter for closed fracture; E87.5 Hyperkalemia; E11.22 Type 2 diabetes mellitus with diabetic chronic kidney disease; N18.3 Chronic kidney disease, stage 3 (moderate); Z66 Do not resuscitate; J44.9 Chronic obstructive pulmonary disease, unspecified; B96.20 Unspecified Escherichia coli [E. coli] as the cause of diseases classified elsewhere; Z16.24 Resistance to multiple antibiotics; E78.5 Hyperlipidemia, unspecified; J45.909 Unspecified asthma, uncomplicated; K21.9 Gastro-esophageal reflux disease without esophagitis; I48.91 Unspecified atrial fibrillation; F32.9 Major depressive disorder, single episode, unspecified; M19.91 Primary osteoarthritis, unspecified site; G47.33 Obstructive sleep apnea (adult) (pediatric); H40.9 Unspecified glaucoma; I25.2 Old myocardial infarction; Z88.0 Allergy status to penicillin; Z88.1 Allergy status to other antibiotic agents; W18.11XA Fall from or off toilet without subsequent striking against object, initial encounter; Y93.89 Activity, other specified; Y92.121 Bathroom in nursing home as the place of occurrence of the external cause; Y99.8 Other external cause status
CPT/HCPCS: 36415; 36416; 51701; 80048; 80069; 81001; 82948; 83036; 83605; 83735; 84443; 84484; 85007; 85025; 85027; 87040; 87077; 87086; 87088; 87186; 93005; 94640

== ENCOUNTER → 2016-07-21 | Outpatient (CLI) | payer MEDICARE, MEDICAID ==
[~2016-07-21] MED LIST changes: +ACET-62 PO; -ADVAIR; -ASPI-611 PO; +BISA10SU8 RECTALLY; +BUDE10.2 INH; -CIPR-280 PO; -CLOP75TA PO; +CLOP75TA33 PO; +DILT120C91 PO; -DOCU-175 PO; +DONE10TA30 PO; -FURO40TA70 PO; -GABA-215 PO; +GABA-305 PO; -GUAI400T65 PO; +GUAI600T94 PO; -HYDR-3989 PO; +LORA0.5T2 PO; +MAG360OR92 PO; -MAGN250T33 PO; +METO25TA6 PO; -METR-116 PO; +MINO50CA PO; -NEBI2.5T5 PO; +NYST15PO3 TOP; -PNEUMOCOCCAL VAC. ADMIN. CHARGE INJ ONE; +POLY15DR57 BOTH EYES; -POLY17PO2 PO; +POLY255P2 PO; -POTA-81 PO; -TOLT4CAP12 PO; +TRAM50TA4 PO
[2016-07-21 09:36] LABS: ANION GAP 13 MEQ/L (5-15); BUN/CREATININE RATIO 17 RATIO (6-26); CHLORIDE 106 MEQ/L (98-107); CO2 - CARBON DIOXIDE 28 MEQ/L (22-30); CREATININE 1.1 MG/DL (0.7-1.2); GLOMERULAR FILTRATION RATE 47; GLUCOSE 153 MG/DL (65-110); SODIUM 147 MEQ/L (134-144)
== END ==
LOC: LABNH.A415 03:20
PROVIDERS: ATTEND Family Medicine
DX: I10 Essential (primary) hypertension (principal)
CPT/HCPCS: 36415; 80048; P9604

== ENCOUNTER 2016-07-31 16:17 | Emergency (ER) | payer MEDICARE, MEDICAID ==
[~2016-07-31] VITALS: Ht 157.5 cm; Wt 81.1 kg
[2016-07-31 16:20] VITALS: Ht 157.5 cm; Wt 81.1 kg
--- OUTSIDE RECORDS SUMMARY | 2016-07-31 16:21 | XMS REPORT | Continuity of Care Document ---
Author Author [facility] Organization [facility] Address Unknown Phone Unavailable Allergies Medications Problems [...] Status Pt. Type Provider Facility Loc./Unit Complaint [id number] 05/08/2012 05:57:00 2012 10:55:00 DIS Outpatient Jose Hightower MD [facility]
--- OUTSIDE RECORDS SUMMARY | 2016-07-31 16:21 | XMS REPORT | Continuity of Care Document ---
Author Author [facility] Organization [facility] Address Unknown Phone Unavailable Support Name Relationship Address Phone JES SIEGEL MD Caregiver [address] [place] [address] [place] [address] PEDRO LIU MD Caregiver [address] [place] [address] [place] [phone] JUAN CLARK MD Caregiver [address] [place] [phone] DARLEEN LAWTON Next Of Kin [address] [place] [address] Insurance Providers Payer Name Policy Number Subscriber Name Relationship Medicare [id number] Aurelia Duran 16 Self [facility] [id number] Aurelia Duran 18 Self Advance Directives Directive [...] PO TWICE A DAY 08/05/13 Active Fish Oil/[place]-3 Fatty Acids 1 Cap PO TWICE A [...] of your legs. 3.During office hours, call [phone] 4. After hours, please call [facility] at [phone], and have the cable armorer operator page your Surgeon IN THE EVENT [...] Hx Influenza Vaccination Y GIVEN 01/11/10 AT [facility] Historical Hx Pneumococcal Vaccination Y GIVEN 01/02/14 AT [facility] Historical Hx Tetanus, Diptheria, Pertussis N UNKNOWN Historical Hx Influenza Vaccination Y GIVEN 01/11/10 AT [facility] Historical Hx Tetanus Diptheria N UNKNOWN Historical [...] F (96.8 - 99.1) Temperature (Calculated Celsius) 35.91013 degrees C (36.0 - 37.3) Temperature Source [...] 01, 2014 9:21pm LAB TEST FORM REQUEST [id number] - Lipase January 08, 2014 12:24pm 136 [...] 12, 2014 5:29am 6.0 % N 0-9.0 [id number]-Type Natriuretic Peptide January 08, 2014 12:24pm 133 [...] Has specimen been collected/obtained? Y Urine Specific [place] January 08, 2014 3:05pm 1.010 L - [...] 4 DAYS Name: AURELIA DURAN Unit #: [id number] : 1930 Sex: F Loc / Svc: ED DOS: 01/08/14 Signed Report #: [id number] DIAGNOSTIC IMAGING REPORT TYPE OF EXAM: CHEST, [...] procedures. Encounters Encounter Location Date/Time Discharged Inpatient [facility] 01/10/14 9:17am Discharged Inpatient [facility] 01/03/14 10:31am Registered Clinic [facility] 01/01/14 4:18pm Registered [facility] 11/06/13 8:54am Recent Diagnosis Dyspnea on exertion COPD exacerbation Chest pain on exertion Pneumonia Dyspnea on exertion Diastolic CHF, chronic Obesity (BMI 30.0-34.9) Chest pain as manifestation of blood transfusion reaction HTN (hypertension) Elevated serum creatinine Hyponatremia
--- OUTSIDE RECORDS SUMMARY | 2016-07-31 16:21 | XMS REPORT | Continuity of Care Document ---
Author Author [facility] Organization [facility] Address Unknown Phone Unavailable Care Team Providers Care Business Process Lead Name Role Phone Yuval Hoang Primary Care Physician [phone] Source Comments Some departments are not documenting in the electronic medical record. If you do not see the information that you expected, contact Release of Information in the Health Information Management department at [phone] for further assistance in locating additional records.[facility] Active Allergies and Adverse Reactions Allergen Noted Date Severity Reactions Comments Aspartame 09/16/2010 UNKNOWN Contrast Dye Iv, Iodine 09/16/2010 RASH, ITCHING Containing Gluten 09/16/2010 SEE COMMENTS Celiac disease Keflex 09/16/2010 NAUSEA AND VOMITING Lactose 09/16/2010 NAUSEA AND VOMITING Merthiolate (Thimerosal) 09/16/2010 UNKNOWN Penicillins 09/16/2010 SEE COMMENTS Bruising from IM injection Jqwwtjv-Ccn-Ogb Reductase 09/16/2010 UNKNOWN Inhibitors Current Medications Prescription [...]
--- OUTSIDE RECORDS SUMMARY | 2016-07-31 16:22 | XMS REPORT | Continuity of Care Document ---
Author Author [facility] Address Unknown Phone Unavailable Support Name Relationship Address Phone ENZO RODARTE MD Caregiver [address] [place] [address] Unavailable CASSANDRA ROMEO MD Caregiver [address] [place] [address] Unavailable ANDREW MASTERSON MD Caregiver [address] [place] [address] Unavailable EDUARD CLARK MD Caregiver [address] [place] [address] Unavailable LAWTONDARLEEN ECHEVERRIA Next Of Kin [address] [place] [address] Insurance Providers Guarantor Aurelia Duran Address [address] [address] Email [email or web address] Payer [facility] State Plan Policy Number [id number] Subscriber's Name Aurelia Duran Relationship 18 Self Effective Date 16 Expiration Date 16 Payer Medicare Policy Number [id number] Subscriber's Name Aurelia Duran Relationship 18 Self Effective Date 93 Advance Directives Directive Response Recorded Date/Time Advanced Directives Type Living Will 10/13/13 1:33pm Ordered Resuscitation Status Do Not Resuscitate 07/09/16 2:49pm DPOA for Healthcare Only Y SON-DARLEEN LAWTON 07/13/16 9:34pm Living Will Yes 07/09/16 3:40pm Problems Active Problems Medical Problem Onset Date Status A-fib Unknown Chronic Acute kidney injury Unknown Resolved Allergic rhinitis Unknown Chronic Asthma with COPD Unknown Acute Back pain Unknown Acute CAD (coronary artery disease) Unknown Chronic CHF exacerbation Unknown Acute COPD exacerbation Unknown Acute CVA (cerebral vascular accident) Unknown Chronic Candidiasis, intertrigo Unknown Acute Cellulitis Unknown Acute Chest pain as manifestation of blood transfusion reaction Unknown Acute Chest pain on exertion Unknown Acute Closed rib fracture ~04/02/2014 Acute Confusion Unknown Acute Dementia Unknown Chronic Depression Unknown Chronic Diabetes Unknown Chronic Diastolic CHF, chronic Unknown Chronic Diverticulitis Unknown Acute Diverticulitis of large intestine with perforation Unknown Acute Diverticulitis of large intestine with perforation Unknown Acute Dyslipidemia Unknown Chronic Dyspnea on exertion Unknown Acute Dyspnea on exertion Unknown Acute Elevated serum creatinine Unknown Acute Encephalopathy Unknown Resolved Fall Unknown Acute Fever Unknown Acute Fracture of metacarpal base of right hand, closed Unknown Acute Fracture, metacarpal Unknown Acute GERD (gastroesophageal reflux disease) Unknown Chronic Glaucoma Unknown Chronic HTN (hypertension) Unknown Chronic Headache, chronic daily Unknown Acute Headache, chronic daily Unknown Acute History of [place] (myocardial infarction) Unknown Resolved History of cirrhosis Unknown Chronic Hyperkalemia Unknown Acute Hyponatremia Unknown Acute Hypoxia Unknown Acute Injury of jaw Unknown Resolved Insomnia Unknown Chronic Leukocytosis Unknown Acute Low back pain Unknown Acute Lower extremity pain Unknown Acute Muscle strain Unknown Acute Muscle strain Unknown Acute Obesity (BMI 30.0-34.9) Unknown Chronic Osteoarthritis Unknown Chronic Paroxysmal SVT (supraventricular tachycardia) Unknown Acute Pneumonia Unknown Acute Pulmonary nodule Unknown Respiratory insufficiency Unknown Resolved Sepsis Unknown Resolved Sleep apnea Unknown Chronic Somnolence Unknown Acute Syncope Unknown Resolved Tachycardia-bradycardia syndrome Unknown Acute Urge incontinence Unknown Chronic Past Problems Medical Problem Onset Date Bradycardia Unknown Hand fracture, right Unknown UTI (urinary tract infection) Unknown Medications Current Home Medications Medication Dose Units Route Directions Days Qty Instructions Start Date Acetaminophen 500 Mg Tablet 1,000 Mg Oral Every 4-6 Hours as needed for Pain 07/09/16 Albuterol Sulfate (Proair Hfa 90 Mcg/Actuation) 8.5 Gm Hfa.aer.ad 2 Puff Inhalation Every 4 Hours as needed for Wheezing 01/08/14 Bisacodyl 10 Mg Supp.rect 10 Mg Rectally Daily as needed for Constipation 07/09/16 Budesonide/Formoterol Fumarate (Symbicort 160-4.5 Mcg Inhaler) 10.2 Gm Hfa.aer.ad 2 Puff Inhalation Twice A Day 07/09/16 Calcium Carbonate/Vitamin D3 (Calcium + Vitamin D Tablet) 1 Each Tablet 1 Tab Oral Daily 11/23/14 Clopidogrel Bisulfate (Clopidogrel) 75 Mg Tablet 75 Mg Oral Daily 07/09/16 Diltiazem Hcl (Cardizem Cd) 120 Mg Cap.er.24h 120 Mg Oral Daily for Hypertension/Svt 30 Capsule 07/16/16 Donepezil Hcl 10 Mg Tablet 10 Mg Oral Bedtime 07/09/16 Enalapril Maleate 10 Mg Tablet 10 Mg Oral Twice A Day 07/09/16 Gabapentin 600 Mg Tablet 600 Mg Oral Twice A Day 07/09/16 Guaifenesin (Guaifenesin Er) 600 Mg Tab.er.12h 600 Mg Oral Every 12 Hours as needed for Congestion 07/09/16 Latanoprost 2.5 Ml Drops 1 Drop Both Eyes Every Evening 01/08/14 Lorazepam 0.5 Mg Tablet 0.5 Mg Oral Every 6 Hours as needed for Anxiety/ Agitation 07/09/16 Mag Hydrox/Al Hydrox/Simeth (Alum-Mag Hydroxide-Simeth Liq) 360 Ml Oral.susp 30 Ml Oral Every 4 Hours as needed for Epigastric Distress 07/09/16 Metoprolol Tartrate 25 Mg Tablet 25 Mg Oral Twice A Day 07/09/16 Minocycline Hcl (Minocin) 50 Mg Capsule 50 Mg Oral Twice A Day for Prophylaxsis After Pacemaker 6 Days 12 Capsule 07/16/16 Nystatin (Nyamyc) 15 Gm Powder 1 Applic Topically Twice A Day as needed for Prn Orders APPLY UNDER ABD FOLD AND/OR GROIN BID PRN 07/09/16 Omeprazole (Prilosec) 40 Mg Capsule.dr 20 Mg Oral Before Breakfast 10/13/13 Polyethylene Glycol 3350 255 Gm Powder 17 Gm Oral Daily as needed for Constipation 07/09/16 Polyvinyl Alcohol (Artificial Tears) 15 Ml Drops 1 Drop Both Eyes Four Times Daily as needed for Dry Eyes 07/09/16 Tramadol Hcl 50 Mg Tablet 25 Mg Oral Bedtime as needed for Pain 30 07/16/16 Past Home Medications Medication Directions Ordered Status Flaxseed (Flaxseed Oil) 1,000 Mg Capsule, 1000 Mg Oral Daily 08/05/13 Discontinued Furosemide (Lasix) 40 Mg Tablet, 40 Mg Oral Daily 10/13/13 Discontinued Hydrocodone Bit/Acetaminophen ([place] 5/325 Tablet) 1 Tab Tablet, 1-2 Tab Oral Every 4-6 Hours as needed for Pain 10/13/13 Discontinued Nystatin 25 Gm Powder, 0 Miscell Three Times A Day 10/13/13 Discontinued Potassium Chloride 20 Meq Tab.er.prt, 20 Meq Oral Twice A Day 07/09/16 Discontinued Potassium Chloride 10 Meq Capsule.sa, 10 Meq Oral Twice A Day 10/13/13 Discontinued Tramadol Hcl 50 Mg Tablet, 25 Mg Oral Bedtime 07/09/16 Discontinued Social History Social History Problem Response Recorded Date/Time Onset Date Status Reason for Hospitalization fall, hand fracture 07/16/2016 1:08pm Not Applicable Not Applicable Hx Substance Use No 07/09/2016 12:23pm Not Applicable Not Applicable Hx Alcohol Use No 07/09/2016 12:23pm Not Applicable Not Applicable Has the pt used tobacco in the last 12 months No 07/09/2016 3:44pm Not Applicable Not Applicable Tobacco Usage none 11/25/2014 9:27am Not Applicable Not Applicable Query Response Start Date Stop Date Smoking Status Unknown if ever smoked Hospital Discharge Instructions Instructions: Care Instructions: Reason for Hospitalization: fall, hand fracture I was in the hospital because (patient own words): "FALLING/WEAK" Discharge Diet: soft Discharge Activity: Per PT/OT, Platform wheeled walker Follow Up Appointments: APPOITMENT WITH DR CONTRERAS TuesdayJuly AT 1:45PM. Dr. Clark 1 week Pending Lab / Results: No Pending Lab Patient Instructions: Refer to instructions provided Candi Goetz Wound/Incision Care: Pacemaker site Steri-Stripped and open to air Splint right hand Pain Scale Utilized to Educate Patient: 0-10 Pain Scale Pain Management/Treatment: See medication list Expected Signs/Symptoms: Hand discomfort, may have mild discomfort at pacemaker site initially Notify Physician If: Falls or syncope During Business Hours:: Please call the physician's office at After Business Hours:: Please call [phone] and have the news camera operator page the physician. Condition at time of discharge: Fair Plan of Care Discharge Date 07/16/16 3:15pm Disposition 03 TO [facility] NOT [facility] (S[facility]) Instructions/Education Provided [facility] Congestive Heart Failure Urinary Tract Infection in Women (DC) Prescriptions See Medication Section Care Plan and Goals See Discharge Instructions Section Functional Status Query Response Date Recorded Mobility Status Ambulatory w/assist July 16, 2016 1:08pm Assistive Devices Four Wheeled Walker July 16, 2016 1:08pm Activity Limitations Weakness Fatigue Pain July 16, 2016 1:08pm Feeding Ability Independent July 16, 2016 1:08pm Toileting Ability Assist July 16, 2016 1:08pm Grooming Ability Assist July 16, 2016 1:08pm Dressing Ability Assist July 16, 2016 1:08pm Driving Ability Dependent July 16, 2016 1:08pm Housework Ability Dependent July 16, 2016 1:08pm Meal Preparation Ability Dependent July 16, 2016 1:08pm Stair Climbing Ability Dependent July 16, 2016 1:08pm Ability to complete ADL's impeded by Impaired Mobility July 16, 2016 1:08pm Cognitive/Perceptual Impairments Impaired vision July 16, 2016 1:08pm Allergies, Adverse Reactions, Alerts Allergen Type Severity Reaction Status Last Updated iodine Allergy Unknown Active 07/09/16 Penicillin Allergy Unknown Active 07/09/16 Cephalexin Allergy Intermediate Active 07/09/16 Gluten Adverse Reaction Intermediate diarrhea, stomach cramps Active 07/13 Milk Allergy Unknown Active 07/09/16 Immunizations Immunization Event Date Type Not Given Reason Dose Number Lot Number 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 Given Pneumococcal conjugate PCV 13 07/10/16 Administered 1 [id number] [employer]i Pasteur 02/13/15 Query Response on File Recorded Date/Time Hx Influenza Vaccination Y fall 201407/09/16 3:44pm Hx Pneumococcal Vaccination N UNKNOWN MAYBE 2 YEARS AGO PER SON 07/09/16 3: 44pm Hx Tetanus, Diptheria, Pertussis N UNKNOWN 11/23/14 6:49am Hx Influenza Vaccination Y fall 201407/09/16 3:44pm Hx Tetanus Diptheria N UNKNOWN 07/09/16 12:25pm Hx Tetanus, Diptheria, Pertussis N UNKNOWN 11/23/14 6:49am Hx Tetanus Toxoid Vaccination N UNKNOWN 07/09/16 12:25pm Influenza Vaccine Hx 01/16/16 07/10/16 12:03pm Tdap Vaccine Hx NO OPEN WOUNDS 07/09/16 12:25pm Vital Signs Acute Vital Signs Vital Response Date/Time Temperature (Fahrenheit) 96.9 deg F (96.8 - 99.1) 07/16/2016 7:45am Temperature (Calculated Celsius) 36.22779 degrees C (36.0 - 37.3) 07/16/2016 7:45am Pulse Rate (adult) 61 bpm (60 - 100) 07/16/2016 12:00pm Respiratory Rate 16 breaths/min (10 - 20) 07/16/2016 12:00pm O2 Sat by Pulse Oximetry 96 % (90 - 100) 07/16/2016 12:00pm Oxygen Delivery Method Room Air 07/16/2016 12:00pm Blood Pressure 148/68 mm Hg 07/16/2016 12:00pm Blood Pressure Source Automatic Cuff 07/16/2016 12:00pm Height (Feet) 5 feet 07/15/2016 3:56pm Height (Inches) 3.00 inches 07/15/2016 3:56pm Weight (Kilograms) 79.800 kg 07/16/2016 8:03am Body Mass Index (BMI) 29.4 07/09/2016 3:35pm Results Laboratory Results Test Name Result Units Flags Reference Collection Date/Time Result Date/ Time Comments White Blood Count 9.0 T/MM3 4.5-11.0 07/15/2016 4:07/15/2016 4: 55am Red Blood Count 4.28 M/MM3 4.00-5.20 07/15/2016 4:07/15/2016 4: 55am Hemoglobin 12.3 GM/DL 12-16 07/15/2016 4:07/15/2016 4:55am Hematocrit 37.4 % 36-46 07/15/2016 4:07/15/2016 4:55am Mean Corpuscular Volume 87.4 UM3 80-100 07/15/2016 4:07/15/2016 4: 55am Mean Corpuscular Hemoglobin 28.7 UUG 26-34 07/15/2016 4:2016 4:55am Mean Corpuscular Hemoglobin Concent 32.9 GM/DL 31-37 07/15/2016 4:07/15/2016 4:55am RDW Standard Deviation 45.9 FL 36.9-50.2 07/15/2016 4:07/15/2016 4 :55am Platelet Count 177 T/MM3 130-400 07/15/2016 4:07/15/2016 4:55am Mean Platelet Volume 11.9 UM3 9.4-12.4 07/15/2016 4:07/15/2016 4: 55am Neutrophils (%) (Auto) 69.7 % H 33-66 07/15/2016 4:07/15/2016 4: 55am Lymphocytes (%) (Auto) 14.4 % L 23-45 07/15/2016 4:07/15/2016 4: 55am Monocytes (%) (Auto) 8.9 % 0-9.0 07/15/2016 4:07/15/2016 4:55am Eosinophils (%) (Auto) 5.3 % H 0-4 07/15/2016 4:07/15/2016 4:55am Basophils (%) (Auto) 0.6 % 0-2 07/15/2016 4:07/15/2016 4:55am Immature Granulocyte % (Auto) 1.1 % H 0.0-0.5 07/15/2016 4:2016 4:55am Absolute Neutrophils (auto) 6.3 T/MM3 1.8-7.7 07/15/2016 4:2016 4:55am Absolute Lymphocytes (auto) 1.3 T/MM3 1-4.8 07/15/2016 4:2016 4:55am Absolute Monocytes (auto) 0.8 T/MM3 0-0.8 07/15/2016 4:07/15/2016 4:55am Absolute Eosinophils (auto) 0.5 T/MM3 0-0.5 07/15/2016 4:2016 4:55am Absolute Basophils (auto) 0.1 T/MM3 0-0.2 07/15/2016 4:07/15/2016 4:55am Absolute Immature Granulocyte (auto 0.10 T/MM3 H 0.00-0.03 07/15/2016 4: 07/15/2016 4:55am Neutrophils % (Manual) 65.0 % 33-66 07/11/2016 8:34am 07/11/2016 9: 09am Lymphocytes % (Manual) 20.0 % L 23-45 07/11/2016 8:34am 07/11/2016 9: 09am Monocytes % (Manual) 13.0 % H 0-9.0 07/11/2016 8:34am 07/11/2016 9:09am Eosinophils % (Manual) 1.0 % 0-4 07/11/2016 8:34am 07/11/2016 9:09am Basophils % (Manual) 1.0 % 0-2 07/11/2016 8:34am 07/11/2016 9:09am Absolute Neutrophils (Manual) 5.0 T/MM3 1.8-7.7 07/11/2016 8:34am 07/11 9:09am Lymphocytes # (Manual) 1.5 T/MM3 1-4.8 07/11/2016 8:34am 07/11/2016 9: 09am Monocytes # (Manual) 1.0 T/MM3 H 0-0.8 07/11/2016 8:34am 07/11/2016 9: 09am Eosinophils # (Manual) 0.1 T/MM3 0-0.5 07/11/2016 8:34am 07/11/2016 9: 09am Basophils # (Manual) 0.1 T/MM3 0-0.2 07/11/2016 8:34am 07/11/2016 9: 09am Red Cell Morphology Comment NORMAL 07/11/2016 8:34am 07/11/2016 9: 09am Icterus Index < 2 0-7 07/16/2016 4:52am 07/16/2016 5:45am Chemistry Specimen Hemolysis < 15 0-25 07/16/2016 4:52am 07/16/2016 5 :45am 0-25: Specimen Exhibited No Hemolysis. Turbidity < 20 0-20 07/16/2016 4:52am 07/16/2016 5:45am Sodium Level 142 MEQ/L 134-144 07/16/2016 4:52am 07/16/2016 5:45am Potassium Level 3.6 MEQ/L D 3.6-5 07/16/2016 4:52am 07/16/2016 5:47am Chloride Level 108 MEQ/L H 98-107 07/16/2016 4:52am 07/16/2016 5:45am Carbon Dioxide Level 27 MEQ/L 22-30 07/16/2016 4:52am 07/16/2016 5: 45am Anion Gap 7 MEQ/L 5-15 07/16/2016 4:52am 07/16/2016 5:45am Blood Urea Nitrogen 14.0 MG/DL 7-17 07/16/2016 4:52am 07/16/2016 5: 45am Creatinine 1.0 MG/DL 0.7-1.2 07/16/2016 4:52am 07/16/2016 5:45am BUN/Creatinine Ratio 14 RATIO 6-26 07/16/2016 4:52am 07/16/2016 5:45am Glomerular Filtration Rate Calc 52 07/16/2016 4:52am 07/16/2016 5: 45am Glucose Level 114 MG/DL H 65-110 07/16/2016 4:52am 07/16/2016 5:45am Calculated Osmolality 275 MOSM/KG 261-280 07/16/2016 4:52am 07/16/2016 5:45am Calcium Level 8.7 MG/DL 8.4-10.2 07/16/2016 4:52am 07/16/2016 5:45am Phosphorus Level 3.9 MG/DL 2.5-4.5 07/14/2016 5:43am 07/14/2016 6:10am Albumin 3.1 G/DL L 3.5-5.0 07/14/2016 5:43am 07/14/2016 6:10am Troponin I < 0.012 ng/ml 0-0.12 07/09/2016 1:23pm 07/09/2016 1:50pm Troponin values with a difference of 55% increase from orginal troponin value represent a true biological DELTA value. (%increase Calc=Orginal Troponin value, divided by subsequent Troponin value, multiplied by 100) Magnesium Level 2.4 MG/DL H 1.6-2.3 07/15/2016 4:28am 07/15/2016 5:04am Plasma Lactate 1.6 MMOL/L 0.6-2.2 07/09/2016 6:22pm 07/09/2016 6:41pm Thyroid Stimulating Hormone (TSH) 1.60 MIU/L 0.47-4.68 07/09/2016 1: 23pm 07/09/2016 5:00pm Hemoglobin A1c 6.0 % L 6.1-7.9 07/09/2016 1:23pm 07/09/2016 4:30pm < 6.0 NON-DIABETIC RANGE 6.1-7.9 [facility] TARGET RANGE >8.0 ACTION SUGGESTED Urine Collection Type OLIVIER INDWELLING 07/11/2016 9:132016 9:24am Urine Color YELLOW YELLOW 07/11/2016 9:1307/11/2016 9:24am Urine Turbidity CLOUDY CLEAR 07/11/2016 9:07/11/2016 9:24am Urine Specific [place] <=1.005 L 1.015-1.025 07/11/2016 9:13am 2016 9:24am Urine pH 5.0 5.0-8.0 07/11/2016 9:07/11/2016 9:24am Urine Leukocyte Esterase 3+ A NEGATIVE 07/11/2016 9:13am 07/11/2016 9: 24am Urine Nitrite NEGATIVE NEGATIVE 07/11/2016 9:1307/11/2016 9:24am Urine Protein NEGATIVE NEGATIVE 07/11/2016 9:13am 07/11/2016 9:24am Urine Glucose (UA) NEGATIVE NEGATIVE 07/11/2016 9:13am 07/11/2016 9: 24am Urine Ketones NEGATIVE NEGATIVE 07/11/2016 9:1307/11/2016 9:24am Urine Urobilinogen 0.2 EU/DL NORMAL 07/11/2016 9:13am 07/11/2016 9: 24am Urine Bilirubin NEGATIVE NEGATIVE 07/11/2016 9:1307/11/2016 9: 24am Urine Blood 2+ A NEGATIVE 07/11/2016 9:1307/11/2016 9:24am Urine WBC 50-200 /HPF H 0-5 07/11/2016 9:13am 07/11/2016 9:33am Urine WBC Clumps FEW 07/11/2016 9:1307/11/2016 9:33am Urine RBC 0-1 /HPF 0-3 07/11/2016 9:13am 07/11/2016 9:33am Urine Squamous Epithelial Cells NONE SEEN 07/11/2016 9:132016 9:33am Urine Bacteria 4+ H NEGATIVE 07/11/2016 9:13am 07/11/2016 9:33am Urine Amorphous Urates FEW 07/09/2016 1:29pm 07/09/2016 1:53pm Urine Culture Indicated CULT REFLEXED &SETUP 07/11/2016 9:13am 05/2016 9:33am Glucometer 107 mg/dL 65-110 07/11/2016 6:21am 07/11/2016 6:25am Microbiology Results Procedure Source Organism/Result Collection Date/Time Result Date/Time Result Status Urine Culture Not Provided ESCHERICHIA COLI 07/09/2016 1:53pm 07/11/2016 7 :38am Final Blood Culture Peripheral/Iv Start NO GROWTH AFTER 5 DAYS 07/09/2016 3:08pm 07/14/2016 3:10pm Final Urine Culture Urine, Olivier Indwelling ESCHERICHIA COLI 07/11/2016 9:33am 07/13/2016 7:32am Final Name: AURELIA DURAN Unit #: [id number] : 1930 Sex: F DISCHARGE SUMMARY Admit Date: 07/09/16 Report #: [id number] [facility] General Date Date DATE: 07/16/16 TIME: 13:17 Attending Physician Cassandra Romeo MD Admitting Physician Cassandra Romeo MD Consulting Physician Dasha Contreras MD Admitting Diagnosis uti, bradycadia, fall Discharge Diagnosis 1. Fall (versus syncope) 2. Tachybradycardia syndrome 3. SVT, paroxysmal 4. Fracture right fourth metacarpal, acute/traumatic with minimal displacement 5. Status post pacemaker placement 6. Multidrug resistant Escherichia coli UTI with sepsis 7. Acute kidney injury on chronic kidney disease-stage III 8. Hypertension 9. Hyperkalemia, resolved 10. Obstructive sleep apnea 11. Chronic diastolic heart failure 12. Diabetes mellitus, type II, controlled Procedures Dual-chamber pacemaker placement on 07/14/16 Laboratory Laboratory Tests Test 07/15/16 04:28 07/16/16 04:52 White Blood Count 9.0T/MM3 (4.5-11.0) Red Blood Count 4.28M/MM3 (4.00-5.20) Hemoglobin 12.3GM/DL (12-16) Hematocrit 37.4% (36-46) Mean Corpuscular Volume 87.4UM3 (80-100) Mean Corpuscular Hemoglobin 28.7UUG (26-34) Mean Corpuscular Hemoglobin Concent 32.9GM/DL (31-37) RDW Standard Deviation 45.9FL (36.9-50.2) Platelet Count 177T/MM3 (130-400) Mean Platelet Volume 11.9UM3 (9.4-12.4) Immature Granulocyte % (Auto) 1.1% (0.0-0.5) Neutrophils (%) (Auto) 69.7% (33-66) Lymphocytes (%) (Auto) 14.4% (23-45) Monocytes (%) (Auto) 8.9% (0-9.0) Eosinophils (%) (Auto) 5.3% (0-4) Basophils (%) (Auto) 0.6% (0-2) Absolute Immature Granulocyte (auto 0.10T/MM3 (0.00-0.03) Absolute Neutrophils (auto) 6.3T/MM3 (1.8-7.7) Absolute Lymphocytes (auto) 1.3T/MM3 (1-4.8) Absolute Monocytes (auto) 0.8T/MM3 (0-0.8) Absolute Eosinophils (auto) 0.5T/MM3 (0-0.5) Absolute Basophils (auto) 0.1T/MM3 (0-0.2) Turbidity < 20 (0-20) < 20 (0-20) Sodium Level 143MEQ/L (134-144) 142MEQ/L (134-144) Potassium Level 5.2MEQ/L (3.6-5) 3.6MEQ/L (3.6-5) Chloride Level 110MEQ/L (98-107) 108MEQ/L (98-107) Carbon Dioxide Level 26MEQ/L (22-30) 27MEQ/L (22-30) Anion Gap 7MEQ/L (5-15) 7MEQ/L (5-15) Blood Urea Nitrogen 16.0MG/DL (7-17) 14.0MG/DL (7-17) Creatinine 1.0MG/DL (0.7-1.2) 1.0MG/DL (0.7-1.2) Glomerular Filtration Rate Calc 52 52 BUN/Creatinine Ratio 16RATIO (6-26) 14RATIO (6-26) Glucose Level 112MG/DL (65-110) 114MG/DL (65-110) Calculated Osmolality 277MOSM/KG (261-280) 275MOSM/KG (261-280) Calcium Level 9.0MG/DL (8.4-10.2) 8.7MG/DL (8.4-10.2) Magnesium Level 2.4MG/DL (1.6-2.3) Icterus Index < 2 (0-7) < 2 (0-7) Chemistry Specimen Hemolysis 38 (0-25) < 15 (0-25) On admission creatinine 1.8, potassium 5.2, white count 14.6, hemoglobin 14.9. A1c 6.0, TSH 1.6 Microbiology URINE CULTURE. Final 07/11/16 Organism 1 ESCHERICHIA COLI COLONY COUNT >100,000 CFU/ml E COLI INTERP DANIEL ------ --------- AMOX/CLAV ACID S 8 AMPICILLIN R >=32 CEFAZOLIN S <=4 CEFEPIME S <=1 CEFTAZIDIME S <=1 CEFTRIAXONE S <=1 CIPROFLOXACIN R >=4 ERTAPENEM S <=0.5 GENTAMICIN R >=16 LEVOFLOXACIN R >=8 TOBRAMYCIN I 8 TRIMETH/SULFA R >=320 PIPERACILL/TAZO S <=4 Repeat urine culture on 07/11 with same organism/sensitivities. Blood cultures 2 drawn 07/09 negative after 5 days Radiology X-ray of the right wrist on admission demonstrated a closed spiral minimally displaced fourth metacarpal fracture. Follow-up film of the right hand on 07/16 demonstrated stable alignment of the fracture. X-ray of the right shoulder on admission demonstrated no acute bony abnormality of the shoulder but incidentally 1.5 cm right lower lobe pulmonary nodule was identified. Pelvis films on admission without evidence of fracture or other bony abnormality. Noncontrast CT of the head on admission was without evidence of acute traumatic injury however there was evidence of an chronic or subacute left occipital ischemic infarct. An old infarct in the right thalamus was also present. CT of the cervical spine demonstrated multilevel degenerative changes but no traumatic abnormalities. Chest x-rays on 07/14 and 07/15 following pacemaker placement revealed NAD and no evidence of pneumothorax. Pacemaker lead placement was stable. History of Present Illness Patient is an 86-year-old female who currently resides at [facility]. It is reported that she was sitting on the toilet this morning and had an unwitnessed fall. half-way staff reported that patient allegedly struck her head, however, event was unwitnessed. Patient was brought to the emergency room today for further evaluation. Lab for studies were obtained. Patient was found have an elevated white count at 14.6, hemoglobin 14.9, hematocrit 45.7, platelet count 243, neutrophils 80.9. Sodium is 144, potassium 5.2, BUN 26, creatinine 1.8. Baseline creatinine is found to be 1.0 (4 months ago). Gluecose is 123. Troponin less than 0.012, venous lactate 2.2. Urinalysis was obtained showing specific gravity of 1.010, positive nitrates, 1+ leukocyte esterase, 2+ bacteria. Patient is afebrile at 96.8. Patient has been intermittently bradycardic and at one point. Heart rate was in the 40s. Twelve-lead EKG is obtained showing sinus bradycardia. CT scan of the C-spine was negative for acute trauma, CT scan of the head did show a subacute left occipital lobe infarct. X-ray of pelvic and shoulders were both negative. X-ray of the right wrist did indicate a 4th metacarpal fracture of the midshaft. Patient was placed in or the Splint for support. The hospitalist services were contacted and accepted patient for inpatient admission for further evaluation and treatment. A shunt is seen on initial examination. She is lying in the bed. She is alert, however, is confused. She is able to identify her son in the room, however, is unclear of her location or the year. Son reports that she does have some "dementia". However, she has been more confused over the last several days. He reports that she usually is confused when she has a acute infectious process. Patient is unable to participate in review of systems or answer specific questions. All information is obtained from her son at the bedside. We did discuss advanced directives and son does verify that patient is a do not resuscitate. Hospital Course Admit patient to inpatient status under the care of Dr. Rodarte for sepsis, urinary tract infection, encephalopathy, bradycardia, and right fourth metacarpal fracture after fall or syncope. Patient was seen by the orthopedic service for evaluation of the right metacarpal fracture and placed in a splint. Follow-up with orthopedics in 3-4 weeks with repeat imaging at that time was recommended. Gentle range of motion of her fingers was recommended but the right hand should not be used for lifting or gripping or weightbearing in the intervening time. Patient was started on Levaquin IV for antimicrobial coverage while in the emergency room. Urine culture grew out [id number] Escherichia coli which was ultimately treated with fosfomycin on 07/11 due to patient drug allergies and organism resistance pattern. Family attributed presenting encephalopathy and slurred speech to urinary tract infection. Mrs. Duran was treated with 1/2NS at 100 ML per hour for gentle hydration on admission with lower rate later in the stay. Lasix was held throughout the hospitalization as well as potassium supplementation due to combined acute kidney injury and hyperkalemia. Fluids were discontinued prior to discharge but diuretics/potassium remain on hold. Renal function stabilized within 48 hours of admission and there was no deterioration in oxygenation or indication of heart failure as a result of hydration. Bradycardia was identified on admission with heart rates dropping into the 40s at times. The patient was not orthostatic when she was eventually able to stand to obtain orthostatic vitals. Metoprolol dose held on admission due to bradycardia arrhythmia but later resumed at 12.5 mg twice a day after an episode of SVT. Dr. Contreras was consulted and ultimately recommended pacemaker placement due to persistent bradycardia, uncontrolled hypertension, and intermittent SVT. Dual- chamber pacemaker was placed on 07/14 and well tolerated. The patient was somnolent the day after pacemaker placement requiring Narcan administration once. Following pacemaker placement diltiazem was initiated to minimize recurrent SVT and metoprolol dose was increased back to 25 mg twice a day with improvement in blood pressure control. Enalapril had been restarted at prior home dose following stabilization of renal function. She is discharged on combination of enalapril, metoprolol, and diltiazem ER with improved blood pressure control but this will require continued monitoring. Initial imaging obtained on admission revealed a 1.5 cm nodule in the right lower lobe which family requested not be evaluated further due to the patient's underlying dementia. They also asked that patient not be notified of the finding as it would chest create anxiety for her. CT of the head demonstrated an old stroke in addition to an interval ischemic stroke which family also did not want further evaluation of. Plavix was continued as an antiplatelet agent. There were no overt neurological deficits on examination. On 07/16 the patient was alert and described only minor pain in her right hand which has not required narcotic pain medications. She denied palpitations or dyspnea. Olivier catheter was removed yesterday and the patient has voided spontaneously although does not always empty bladder fully. Straight catheterization has not been needed. On examination sensation is intact in the digits of the right hand and there is minimal edema of the right fingers. Breath sounds are clear and cardiac rhythm regular. There is minor discomfort on palpation of the abdomen but no guarding. Pacemaker site is clean and dry with Steri-Strips in place. Telemetry strips demonstrate paced rhythm with occasional intervals of underlying sinus rhythm. Repeat films of the right hand demonstrates stable fracture of the right fourth metacarpal. Creatinine today is 1.0 with potassium of 3.6. Patient is felt stable for discharge with return to [facility] this time. >30 minutes spent on patient care and discharge care coordination today on the date of discharge. -- Problems: (1) Tachycardia-bradycardia syndrome Status: Acute (2) Paroxysmal SVT (supraventricular tachycardia) Status: Acute (3) Somnolence Status: Acute Assessment & Plan: Postprocedure; improved with Narcan 07/15 (4) Fracture, metacarpal Status: Acute Assessment & Plan: Right fourth (5) Sepsis Status: Resolved Assessment & Plan: Magnifications of Sepsis include the following- 1. UTI 2. Leukocytosis- WBC 14.6 3. Encephalopathy 4. 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 Incidentally noted on x-ray of right shoulder, family requested no further workup in that patient not be notified of presents (22) Dementia Status: Chronic (23) CVA (cerebral vascular accident) Status: Chronic Code Status Do Not Resuscitate Home Meds Active Scripts Diltiazem HCl (Cardizem Cd) 120 Mg Cap.er.24h, 120 MG PO DAILY for hypertension/ SVT, #30 CAP Prov:CASSANDRA ROMEO MD 07/16/16 Minocycline HCl (Minocin) 50 Mg Capsule, 50 MG PO BID for prophylaxsis after pacemaker for 6 Days, #12 CAP Prov:CASSANDRA ROMEO MD 07/16/16 Tramadol HCl (Tramadol HCl) 50 Mg Tablet, 25 MG PO HS Y for pain, #30 Prov:CASSANDRA ROMEO MD 07/16/16 Reported Medications Bisacodyl (Bisacodyl) 10 Mg Supp.rect, 10 MG RECTALLY DAILY Y for CONSTIPATION 07/09/16 Guaifenesin (Guaifenesin ER) 600 Mg Tab.er.12h, 600 MG PO Q12H Y for CONGESTION 07/09/16 Lorazepam (Lorazepam) 0.5 Mg Tablet, 0.5 MG PO Q6H Y for ANXIETY/AGITATION 07/09/16 Donepezil HCl (Donepezil HCl) 10 Mg Tablet, 10 MG PO HS 07/09/16 Acetaminophen (Acetaminophen) 500 Mg Tablet, 1000 MG PO Q4-6H Y for PAIN 07/09/16 Polyvinyl Alcohol (Artificial Tears) 15 Ml Drops, 1 DROP BOTH EYES QID Y for DRY EYES 07/09/16 Mag Hydrox/Al Hydrox/Simeth (Alum-Mag Hydroxide-Simeth Liq) 360 Ml Oral.susp, 30 ML PO Q4H Y for EPIGASTRIC DISTRESS 07/09/16 Nystatin (Nyamyc) 15 Gm Powder, 1 APPLIC TOP BID Y for PRN ORDERS APPLY UNDER ABD FOLD AND/OR GROIN BID PRN 07/09/16 Polyethylene Glycol 3350 (Polyethylene Glycol 3350) 255 Gm Powder, 17 GM PO DAILY Y for CONSTIPATION 07/09/16 Clopidogrel Bisulfate (Clopidogrel) 75 Mg Tablet, 75 MG PO DAILY 07/09/16 Enalapril Maleate (Enalapril Maleate) 10 Mg Tablet, 10 MG PO BID 07/09/16 Gabapentin (Gabapentin) 600 Mg Tablet, 600 MG PO BID 07/09/16 Metoprolol Tartrate (Metoprolol Tartrate) 25 Mg Tablet, 25 MG PO BID 07/09/16 Budesonide/Formoterol Fumarate (Symbicort 160-4.5 Mcg Inhaler) 10.2 Gm Hfa.aer.ad, 2 PUFF INH BID 07/09/16 Calcium Carbonate/Vitamin D3 (Calcium + Vitamin D Tablet) 1 Each Tablet, 1 TAB PO DAILY 11/23/14 Albuterol Sulfate (Proair HFA 90 mcg/actuation) 8.5 Gm Hfa.aer.ad, 2 PUFF INH Q4HR Y for WHEEZING 01/08/14 Latanoprost (Latanoprost) 2.5 Ml Drops, 1 DROP BOTH EYES PM 01/08/14 Omeprazole (Prilosec) 40 Mg Capsule.dr, 20 MG PO ACB 10/13/13 Discontinued Reported Medications Potassium Chloride (Potassium Chloride) 20 Meq Tab.er.prt, 20 MEQ PO BID 07/09/16 Furosemide (Lasix) 40 Mg Tablet, 40 MG PO DAILY 10/13/13 Face to Face Encounter I met with patient on the day of dismissal and discussed follow up appointments , medications, and safety plan. Discharge Disposition [facility] Copies To 1: DASHA CONTRERAS MD; EVON PAYAN MD; EDUARD CLARK MD Documentation Requirements Documenting Diagnosis Altered Mental Status CHF Type and Acuity Type of CHF: Diastolic Acuity CHF: Chronic Chronic Kidney Disease Stage of CKD: Stage 3 GFR 30-59 Urosepsis Clarification of Urosepsis: Sepsis from UTI Alt. Mental Status/Confusion Check if condition above is: Acute Renal Insufficiency Renal Insufficiency: Acute on Chronic Renal Failure Classification of CKD: Stage 3 GFR 30-59 BMI Low or High Assoc. dx for low or high BMI: Obesity 30-34.9 Diabetes Diabetes Type: Type 2 Diabetes Is Diabetes Contolled?: Contolled Related to Diabetes: Not related to CASSANDRA ROMEO MD Jul 16, 2016 13:23 Procedures Procedure Status Date Provider(s) Routine venipuncture Completed 04/21/16 Metabolic panel total ca Completed 04/21/16 [id number] TRIP CHARGE. Completed 04/21/16 Routine venipuncture Completed 04/28/16 Glycosylated hemoglobin test Completed 04/28/16 [id number] TRIP CHARGE. Completed 04/28/16 Routine venipuncture Completed 06/16/16 Complete cbc w/auto diff wbc Completed 06/16/16 [id number] TRIP CHARGE. Completed 06/16/16 Encounters Encounter Location Arrival/Admit Date Discharge/Depart Date Attending Provider Discharged Inpatient [facility] 07/09/16 2:49pm 07/16/16 3:15pm CASSANDRA ROMEO MD Registered [facility] 06/16/16 12:58am EDUARD CLARK MD Registered [facility] 04/28/16 2:45am EDUARD CLARK MD Registered [facility] 04/21/16 12:48am EDUARD CLARK MD
--- OUTSIDE RECORDS SUMMARY | 2016-07-31 16:22 | XMS REPORT | Continuity of Care Document ---
Author Author [facility] Organization [facility] Address Unknown Phone Unavailable Support Name Relationship Address Phone DASHA DE SANTIAGO MD Caregiver [address] [place] [address] [place] [phone] EDUARD CLARK MD Caregiver [address] [place] [phone] DARLEEN LAWTON Next Of Kin [address] [place] [phone] Insurance Providers Payer Name Policy Number Subscriber Name Relationship Medicare [id number] Aurelia Duran 18 Self [facility] [id number] Aurelia Duran 18 Self Advance Directives Directive Response Recorded Date/Time Advanced Directives Type Living Will 10/13/13 1:33pm Ordered Resuscitation Status Full Code, unverified 02/12/14 8:44am Resuscitation Documents on File No 02/12/14 8:30am Chief Complaint and Reason for Visit Chief Complaint Chest Pain Reason for Visit [id number] Dyspnea on exertion Chest pain on exertion [...] PO TWICE A DAY 08/05/13 Active Fish Oil/[place]-3 Fatty Acids 1 Cap PO TWICE A [...] Discharge Date 01/12/14 6:00pm Disposition 02 TO [facility] Condition at Discharge Stable Instructions/Education Provided DI [...] Hx Pneumococcal Vaccination Y GIVEN 01/02/14 [place] [facility] Historical Hx Tetanus, Diptheria, Pertussis N UNKNOWN Historical Hx Influenza Vaccination Y PT UNSURE BELIEVES LAST ONE PASTIN 2012 Historical Hx Tetanus Diptheria N UNKNOWN Historical Hx Tetanus, Diptheria, Pertussis N UNKNOWN Historical Hx Tetanus Toxoid Vaccination N UNKNOWN Historical Vital Signs Acute Vital Signs Vital Response Date/Time Temperature (Fahrenheit) 96.3 deg F (96.8 - 99.1) Temperature (Calculated Celsius) 35.35854 degrees C (36.0 - 37.3) Temperature Source [...] 01, 2014 9:21pm LAB TEST FORM REQUEST [id number] - Lipase January 08, 2014 12:24pm 136 [...] COMMENT NURSE WILL CALL WHEN PT HERE MK-Qro-F-Type Natriuretic Peptide January 08, 2014 12:24pm 133 [...] Has specimen been collected/obtained? Y Urine Specific [place] January 08, 2014 3:05pm 1.010 L - [...] 5 DAYS Name: AURELIA DURAN Unit #: [id number] : 1930 Sex: F DISCHARGE SUMMARY Admit Date: 01/10/14 Report #: [id number] General Date Date DATE: 01/12/14 TIME: 14:46 [...] old woman who was recently admitted to [facility] for CHF exacerbation. She was discharged on [...] home from the hospital. She presented to [facility] ED for evaluation. There, lab and imaging [...] CM did get them set up with [facility]. She was instructed to f/u with [...] Mg PO ACB 10/13/13 Gabapentin 300 Mg [id number] Mg PO BID 10/13/13 Furosemide (Lasix)40 Mg Lvjqzw91 Mg PO DAILY 10/13/13 Loratadine 10 Mg Ffqjnz70 Mg PO DAILY 08/05/13 Fish Oil/[place]-3 Fatty Acids (Fish Oil 1,000 Mg Softgel)1 Cap Capsule1 Cap PO BID 08/05/13 Calcium Carbonate (Calcium 500)1 Tab Tablet1 Tab PO BID 08/05/13 Antiox#10/Om3/Dha/Epa/Lut/Zeax (I-Caps With Lutein-[place] 3 Sfg)1 Each Capsule1 Each PO DAILY 08/05/13 Aspirin 81 Mg Srnqtj12 Mg PO DAILY 08/05/13 Red Yeast Rice 600 Mg Tablet1,200 Mg PO BID 08/05/13 Magnesium Oxide (Magnesium)250 Mg Bljqci081 Mg PO DAILY 08/05/13 Discharge Disposition stable Copies To 1: EDUARD CLARK MD, CARRIE DO Jan 12, 2014 14:46 Procedures No known history of procedures. Encounters Encounter Location Date/Time Departed [facility] 02/12/14 8:06am Registered [facility] 01/29/14 9:54am Discharged Inpatient [facility] 01/10/14 9:17am Discharged Inpatient [facility] 01/03/14 10:31am Registered [facility] 01/01/14 4:18pm
--- OUTSIDE RECORDS SUMMARY | 2016-07-31 16:23 | XMS REPORT | Continuity of Care Document ---
Author Author [facility] Organization [facility] Address Unknown Phone Unavailable Support Name Relationship Address Phone LEVAR DE SANTIAGO MD Caregiver [address] [phone] EDUARD CLARK MD Caregiver [address] [place], [place] [phone] LAWTONDARLEEN Next Of Kin [address] [place], [place] [phone] Insurance Providers Payer Name Policy Number Subscriber Name Relationship Medicare [id number] Aurelia Duran 18 Self [facility] [id number] Aurelia Duran 18 Self Advance Directives Directive Response Recorded Date/Time Advanced Directives Type Living Will 10/13/13 1:33pm Ordered Resuscitation Status Full Code, unverified 02/19/14 3:20am Chief Complaint and Reason for Visit Chief Complaint Chest Pain Reason for Visit [id number] Dyspnea on exertion Chest pain on exertion [...] PO TWICE A DAY 08/05/13 Active Fish Oil/[place]-3 Fatty Acids 1 Cap PO TWICE A [...] A DAY 02/19/14 Active Sodium Chloride 1 [place] NS NEEDED 02/19/14 Active Clopidogrel Bisulfate 75 [...] Discharge Date 01/12/14 6:00pm Disposition 02 TO [facility] Condition at Discharge Stable Instructions/Education Provided DI [...] Hx Pneumococcal Vaccination [place] [facility] [place] Hx Tetanus, Diptheria, Pertussis N UNKNOWN Historical Hx Influenza Vaccination Y JANUARY 2014 Historical Hx Tetanus Diptheria N UNKNOWN Historical Hx Tetanus, Diptheria, Pertussis N UNKNOWN Historical Hx Tetanus Toxoid Vaccination N UNKNOWN Historical Vital Signs Acute Vital Signs Vital Response Date/Time Temperature (Fahrenheit) 96.7 deg F (96.8 - 99.1) Temperature (Calculated Celsius) 35.69639 degrees C (36.0 - 37.3) Temperature Source [...] 01, 2014 9:21pm LAB TEST FORM REQUEST [id number] - Lipase January 08, 2014 12:24pm 136 [...] COMMENT NURSE WILL CALL WHEN PT HERE HF-Kni-X-Type Natriuretic Peptide January 08, 2014 12:24pm 133 [...] Has specimen been collected/obtained? Y Urine Specific [place] January 08, 2014 3:05pm 1.010 L - [...] 5 DAYS Name: AURELIA DURAN Unit #: [id number] : 1930 Sex: F DISCHARGE SUMMARY Admit Date: 01/10/14 Report #: [id number] General Date Date DATE: 01/12/14 TIME: 14:46 [...] old woman who was recently admitted [place] [facility] [place]. She was discharged on [...] home from the hospital. She presented to [facility] [place]. There, lab and imaging [...] CM did get them set up with [facility]. She was instructed to f/u with [...] Mg PO ACB 10/13/13 Gabapentin 300 Mg [id number] Mg PO BID 10/13/13 Furosemide (Lasix)40 Mg Xvxpxq87 Mg PO DAILY 10/13/13 Loratadine 10 Mg Korati72 Mg PO DAILY 08/05/13 Fish Oil/[place]-3 Fatty Acids (Fish Oil 1,000 Mg Softgel)1 Cap Capsule1 Cap PO BID 08/05/13 Calcium Carbonate (Calcium 500)1 Tab Tablet1 Tab PO BID 08/05/13 Antiox#10/Om3/Dha/Epa/Lut/Zeax (I-Caps With Lutein-[place] 3 Sfg)1 Each Capsule1 Each PO DAILY 08/05/13 Aspirin 81 Mg Iwqpep65 Mg PO DAILY 08/05/13 Red Yeast Rice 600 Mg Tablet1,200 Mg PO BID 08/05/13 Magnesium Oxide (Magnesium)250 Mg Bsjpej279 Mg PO DAILY 08/05/13 Discharge Disposition stable Copies To 1: EDUARD CLARK MD, CARRIE DO Jan 12, 2014 14:46 Procedures Procedure Status Date Provider(s) ROUTINE VENIPUNCTURE completed 02/12/14 METABOLIC PANEL TOTAL CA completed 02/12/14 COMPLETE CBC W/AUTO DIFF WBC completed 02/12/14 ELECTROCARDIOGRAM TRACING completed 02/12/14 L HRT ARTERY/VENTRICLE ANGIO completed 02/12/14 DASHA DE SANTIAGO MD [id number] ITEM OR SERVICE completed 02/12/14059072"INJECTION, DIPHENHYDRAMINE HCL, UP TO 50 MG" completed 02/12/14395073"INJECTION, HEPARIN SODIUM, PER 1000 UNITS" completed 02/12/14398013"INJECTION, HEPARIN SODIUM, PER 1000 UNITS" completed 02/12/14835326"INJECTION, MIDAZOLAM HYDROCHLORIDE, PER 1 MG" completed 02/12/14924164"INJECTION, METHYLPREDNISOLONE SODIUM SUCCINATE, UP TO completed 003"INJECTION, FENTANYL CITRATE, 0.1 MG" completed 02/12/[id number] DRUGS completed 02/12/14543289"INFUSION, NORMAL SALINE SOLUTION , 1000 CC" completed 02/12/14559941"LOW OSMOLAR CONTRAST MATERIAL, 300-399 MG/ML IODINE C completed Encounters Encounter Location Date/Time Departed [facility] 02/19/14 5:57am Departed [facility] 02/12/14 8:06am Registered Clinic [facility] 01/29/14 9:54am Discharged Inpatient [facility] 01/10/14 9:17am Discharged Inpatient [facility] 01/03/14 10:31am Registered Clinic [facility] 01/01/14 4:18pm
--- OUTSIDE RECORDS SUMMARY | 2016-07-31 16:23 | XMS REPORT | Continuity of Care Document ---
Author Author [facility] Organization [facility] Address Unknown Phone Unavailable Support Name Relationship Address Phone EDUARD CLARK MD Caregiver [address] [phone] SONDRA BERGERON MD Caregiver [address] [place] [address] DARLEEN LAWTON Next Of Kin Unknown [phone] Insurance Providers Payer Name Policy Number Subscriber Name Relationship Medicare [id number] Aurelia Duran 16 Self [facility] [id number] [place] 18 Self Advance Directives Directive Response Recorded [...] PO TWICE A DAY 08/05/13 Active Fish Oil/[place]-3 Fatty Acids 1 Cap PO TWICE A [...] F (96.8 - 99.1) Temperature (Calculated Celsius) 36.00256 degrees C (36.0 - 37.3) Pulse Rate [...] Has specimen been collected/obtained? Y Urine Specific [place] August 05, 2013 1:55pm <=1.005 L - [...] Encounters Encounter Location Date/Time Departed Emergency Room [facility] 10/13/13 1:28pm Departed Emergency Room [facility] 08/05/13 12:39pm Recent Diagnosis
--- OUTSIDE RECORDS SUMMARY | 2016-07-31 16:23 | XMS REPORT | Continuity of Care Document ---
Author Author [facility] Organization [facility] Address Unknown Phone Unavailable Support Name Relationship Address Phone MAGNUS BACK MD Caregiver [address] [place] [address] DR [place] [phone] ОЛЬГА JOHNSON FACS, MD Caregiver [address] [place] [address] [address] [place] [phone] PEDRO LIU MD Caregiver [address] [place] [address] [place] [phone] EDUARD CLARK MD Caregiver [address] [place] [address] [place] [phone] DARLEEN LAWTON Next Of Kin [address] [place] [address] Insurance Providers Payer Name Policy Number Subscriber Name Relationship Medicare [id number] Aurelia Duran 16 Self [facility] [id number] Aurelia Duran 18 Self Advance Directives Directive [...] perforation Closed rib fracture Dyslipidemia History of AR (myocardial infarction) Allergic rhinitis Osteoarthritis Back pain [...] ~04/02/2014 Active Dyslipidemia Unknown Active History of AR (myocardial infarction) Unknown Active Allergic rhinitis Unknown [...] PO TWICE A DAY 08/05/13 Active Fish Oil/Aldie-3 Fatty Acids 1 Cap PO TWICE A [...] A DAY 02/19/14 Active Sodium Chloride 1 [place] NS NEEDED 02/19/14 Active Clopidogrel Bisulfate 75 [...] have difficulty breathing. During office hours, call [phone]. After hours, please call [facility] at [phone] and have the operator receptionist page Dr. Pretty or the covering surgeon. *In the event of an emergency, seek medical care at the nearest emergency room.* Condition at time of discharge: Good Plan of Care Discharge Date 04/11/14 4:35pm Disposition 06 HOME HEALTH SERVICE Instructions/Education Provided [facility] Congestive Heart Failure DI for Diverticulitis Prescriptions [...] Hx Pneumococcal Vaccination Y GIVEN 01/02/14 AT [facility] Historical Hx Tetanus, Diptheria, Pertussis N UNKNOWN Historical Hx Influenza Vaccination Y JANUARY 2014 Historical Hx Tetanus Diptheria N UNKNOWN Historical Hx Tetanus, Diptheria, Pertussis N UNKNOWN Historical Hx Tetanus Toxoid Vaccination N UNKNOWN Historical Vital Signs Acute Vital Signs Vital Response Date/Time Temperature (Fahrenheit) 96.7 deg F (96.8 - 99.1) Temperature (Calculated Celsius) 35.84652 degrees C (36.0 - 37.3) Temperature Source [...] 01, 2014 9:21pm LAB TEST FORM REQUEST [id number] - Large Platelets April 08, 2014 4:37am [...] 10, 2014 5:05am 13.4 % H 0-9.0 CY-Alo-R-Type Natriuretic Peptide April 02, 2014 8:46am 438 [...] Has specimen been collected/obtained? Y Urine Specific [place] April 02, 2014 9:05am 1.010 L - [...] 5 DAYS Name: AURELIA DURAN Unit #: [id number] : 1930 Sex: F DISCHARGE SUMMARY Admit Date: 04/02/14 Report #: [id number] General Date Date DATE: 04/11/14 TIME: 14:18 Attending Physician Magnus Back MD Admitting Physician Magnus Back MD Consulting Physician [facility] Dr Johnson Admitting Diagnosis (1) Syncope Status: Acute (2) Diverticulitis of large intestine with perforation Status: Acute (3) Respiratory insufficiency Status: Acute Assessment & Plan: present on admission (4) Closed rib fracture Onset Date: ~ 04/02/2014 Status: Acute Assessment & Plan: [id number] rib (5) Bradycardia Status: Acute Assessment & [...] Urge incontinence Status: Chronic (22) History of AR (myocardial infarction) Status: Chronic (23) Dyslipidemia Status: [...] 84 year old female who presented to [facility] ED today, 04/02/14, via EMS for severe low back pain after falling at home. She reports that she remembers going to bed last night and then woke up this morning on the floor. She pushed her emergency button to alert EMS who responded and transported her to [facility] ED. Upon arrival to the ED she [...] ~ 04/02/2014 Status: Acute Assessment & Plan: [id number] rib (5) Bradycardia Status: Resolved Assessment & [...] (18) Diabetes Status: Chronic (19) History of AR (myocardial infarction) Status: Chronic (20) Dyslipidemia Status: Chronic DVT Prophylaxis: SCD'S GI Prophylaxis: Protonix Code Status Full Code Home Meds Active Scripts Polyethylene Glycol 3350 17 Gm Powd.pack1 Packet PO DAILY 30 Days Prov:OSCAR MCCORMICK DO 04/11/14 Ciprofloxacin HCl (Cipro)500 Mg Pyksba986 Mg PO Q12HR 10 Days Prov:OSCAR MCCORMICK DO 04/11/14 Hydrocodone/Acetaminophen (Hydrocodon-Acetaminophen 5-325)1 Tab Tablet1 Tab PO Q4H PRN (PAIN) #30 TAB Prov:OSCAR MCCORMICK DO 04/11/14 Metronidazole (Flagyl)500 Mg Esxtxy988 Mg PO Q12HR 10 Days Prov:OSCAR MCCORMICK DO 04/11/14 Clopidogrel Bisulfate (Plavix)75 Mg Pnszkb36 Mg PO DAILY #30 Ref 11 Prov:LEVAR DE SANTIAGO MD 02/19/14 Potassium Chloride 20 Meq Tablet.er20 Meq PO BIDWM #0 TAB Take 1 tablet, by mouth, two times a day with meals. Prov:DASHA DE SANTIAGO MD 02/12/14 Enalapril Maleate 10 Mg Tablet1 Tab PO BID #60 TAB Prov:OSCAR MCCORMICK DO 01/03/14 Reported Medications Sodium Chloride (Saline Nasal [place])30 Ml Spray1 [place] NS PRN 02/19/14 Guaifenesin 400 Mg Tablet1 [...] Mg PO ACB 10/13/13 Gabapentin 300 Mg Gllbvju266 Mg PO BID 10/13/13 Furosemide (Lasix)40 Mg Vmvpjf32 Mg PO DAILY RESTART ON FEB 14. 10/13/13 Loratadine 10 Mg Fdqijx68 Mg PO DAILY 08/05/13 Fish Oil/Aldie-3 Fatty Acids (Fish Oil 1,000 Mg Softgel)1 Cap Capsule1 Cap PO BID 08/05/13 Calcium Carbonate (Calcium 500)1 Tab Tablet1 Tab PO BID 08/05/13 Antiox#10/Om3/Dha/Epa/Lut/Zeax (I-Caps With Lutein-Aldie 3 Sfg)1 Each Capsule1 Each PO DAILY 08/05/13 Aspirin 81 Mg Egnvrs99 Mg PO DAILY 08/05/13 Red Yeast Rice 600 Mg Tablet1,200 Mg PO BID 08/05/13 Magnesium Oxide (Magnesium)250 Mg Xviwdt034 Mg PO DAILY 08/05/13 Discharge Disposition stable [...] ANGIO completed 02/12/14 DASHA DE SANTIAGO MD [id number] ITEM OR SERVICE completed 02/12/14216430"INJECTION, DIPHENHYDRAMINE HCL, UP TO 50 MG" completed 02/12/14"INJECTION, HEPARIN SODIUM, PER 1000 UNITS" completed 02/12/14"INJECTION, HEPARIN SODIUM, PER 1000 UNITS" completed 02/12/14"INJECTION, MIDAZOLAM HYDROCHLORIDE, PER 1 MG" completed 02/12/14"INJECTION, METHYLPREDNISOLONE SODIUM SUCCINATE, UP TO completed "INJECTION, FENTANYL CITRATE, 0.1 MG" completed 02/12/14844324MITRQVQPZDZL DRUGS completed 02/12/14"INFUSION, NORMAL SALINE SOLUTION , 1000 CC" completed 02/12/14"LOW OSMOLAR CONTRAST MATERIAL, 300-399 MG/ML IODINE C completed ROUTINE VENIPUNCTURE completed 02/19/14 METABOLIC PANEL TOTAL CA completed 02/19/14 BL SMEAR W/DIFF WBC COUNT completed 02/19/14 COMPLETE CBC AUTOMATED completed 02/19/14 [id number] ITEM OR SERVICE completed 02/19/14 [id number] ITEM OR SERVICE completed 02/19/14 [id number] ITEM OR SERVICE completed 02/19/14 [id number] ITEM OR SERVICE completed 02/19/14120667"CLOSURE DEVICE, VASCULAR (IMPLANTABLE/INSERTABLE)" completed 02/19/14398430ZYYMD WIRE completed 02/19/14"STENT, COATED/COVERED, WITH DELIVERY SYSTEM" completed 02/19/14"CATHETER, GUIDING (MAY INCLUDE INFUSION/PERFUSION CAP completed [id number] THAN PEEL-AWAY completed 02/19/14 completed 02/19/14 LEVAR DE SANTIAGO MD [id number]"INJECTION, HEPARIN SODIUM, PER 1000 UNITS" completed 02/19/14"INJECTION, HEPARIN SODIUM, PER 1000 UNITS" completed 02/19/14"INJECTION, MIDAZOLAM HYDROCHLORIDE, PER 1 MG" completed 02/19/14"INJECTION, FENTANYL CITRATE, 0.1 MG" completed 02/19/14"INFUSION, NORMAL SALINE SOLUTION , 1000 CC" completed 02/19/14"LOW OSMOLAR CONTRAST MATERIAL, 300-399 MG/ML IODINE C completed Encounters Encounter Location Date/Time Discharged Inpatient [facility] 04/02/14 8:47am Departed Clinic [facility] 02/19/14 5:57am Departed Clinic [facility] 02/12/14 8:06am Registered Clinic [facility] 01/29/14 9:54am Discharged Inpatient [facility] 01/10/14 9:17am Recent Diagnosis Diabetes Urge incontinence History of cirrhosis Bradycardia Diverticulitis of large intestine with perforation Closed rib fracture Dyslipidemia History of AR (myocardial infarction) Allergic rhinitis Osteoarthritis Back pain Respiratory insufficiency Syncope Injury of jaw Low back pain Diverticulitis of large intestine with perforation Fall
--- OUTSIDE RECORDS SUMMARY | 2016-07-31 16:24 | XMS REPORT | Continuity of Care Document ---
Author Author [facility] Organization [facility] Address Unknown Phone Unavailable Support Name Relationship Address Phone JACE OSCAR DO Caregiver [address] [place] [address] EDAURD CLARK MD Caregiver [address] [place] [phone] DARLEEN LAWTON Next Of Kin Unknown [phone] Insurance Providers Payer Name Policy Number Subscriber Name Relationship Medicare [id number] RogerAurelia 16 Self [facility] [id number] Aurelia Duran 16 Self Advance Directives Directive [...] PO TWICE A DAY 08/05/13 Active Fish Oil/[place]-3 Fatty Acids 1 Cap PO TWICE A [...] AT 1:00PM FOR ECHOCARDIOGRAM. CHECK IN AT [facility] REGISTRATION ON 01/15/14 AT 8:30AM FOR A [...] BECOMES DISLODGED OR WET Durable Medical Equipment: [employer] [phone] Notify Physician If: CALL YOUR SURGEON IF: [...] and call Dr. Camarillo with the result [phone]. Condition at time of discharge: Good Plan of Care Discharge Date 01/03/14 3:55pm Disposition 01 DISCHARGED HOME, SELF-CARE Instructions/Education Provided [facility] Congestive Heart Failure Prescriptions See Medications Section Functional Status Query Response Date Recorded Mental Status Alert October 13, 2013 4:56pm Allergies, Adverse Reactions, Alerts Allergen Type Severity Reaction Status Last Updated iodine Allergy Unknown Active 01/02/14 Penicillin Allergy Unknown Active 01/02/14 Cephalexin Allergy Intermediate Active 01/02/14 Immunizations Name Given Type Hx Influenza Vaccination No Historical Hx Pneumococcal Vaccination Y GIVEN 01/02/14 AT [facility] Historical Hx Influenza Vaccination No Historical Vital Signs Acute Vital Signs Vital Response Date/Time Temperature (Fahrenheit) 98.9 deg F (96.8 - 99.1) Temperature (Calculated Celsius) 37.32560 degrees C (36.0 - 37.3) Temperature Source [...] 02, 2014 5:13am 10.4 % H 0-9.0 DB-Bnd-W-Type Natriuretic Peptide January 02, 2014 5:13am 244 [...] REFLEXHas specimen been collected/obtained? Y Urine Specific [place] January 01, 2014 8:10pm <=1.005 L - [...] DN 4.5-11.0 Name: AURELIA DURAN Unit #: [id number] : 1930 Sex: F DISCHARGE SUMMARY Admit Date: 01/03/14 Report #: [id number] General Date Date DATE: 01/03/14 TIME: 14:50 [...] 83-year-old female who was brought to the [facility] to see Dr. Min for increasing [...] TAB Prov:OSCAR BROWN DO 01/03/14 Hydrocodone Bit/Acetaminophen ([place] 5/325 Tablet)1 Tab Tablet1-2 Tab PO Q4-6H PRN (PAIN) #20 TAB Prov:SIA CARBONE 10/13/13 Reported Medications Tramadol Hcl 50 Mg Ffbiyi70 Mg PO PRN 10/13/13 Tolterodine Tartrate (Detrol La)4 Mg Cap.sr.24h4 Mg PO DAILY 10/13/13 Budesonide/Formoterol Fumarate (Symbicort 160-4.5 Mcg Inhaler)10.2 Gm Hfa.aer.ad10.2 Gm IH DAILY 10/13/13 Potassium Chloride 10 Meq Capsule.sa10 Meq PO BID 10/13/13 Iron Ps Cmplx/Vit B12/Fa (Poly-Iron 150 Forte Capsule)1 Udcap Capsule1 Udcap PO BID 10/13/13 Omeprazole (Prilosec)40 Mg Capsule.dr40 Mg PO ACB 10/13/13 Gabapentin 300 Mg Qpxqyyz652 Mg PO BID 10/13/13 Furosemide (Lasix)40 Mg Nfyhyx23 Mg PO DAILY 10/13/13 Loratadine 10 Mg Dgcywg88 Mg PO DAILY 08/05/13 Fish Oil/Crescent-3 Fatty Acids (Fish Oil 1,000 Mg Softgel)1 Cap Capsule1 Cap PO BID 08/05/13 Calcium Carbonate (Calcium 500)1 Tab Tablet1 Tab PO BID 08/05/13 Antiox#10/Om3/Dha/Epa/Lut/Zeax (I-Caps With Lutein-Crescent 3 Sfg)1 Each Capsule1 Each PO DAILY 08/05/13 Aspirin 81 Mg Llhats75 Mg PO DAILY 08/05/13 Red Yeast Rice 600 Mg Tablet1,200 Mg PO BID 08/05/13 Magnesium Oxide (Magnesium)250 Mg Tpxnjl340 Mg PO DAILY 08/05/13 Discontinued Reported Medications [...] procedures. Encounters Encounter Location Date/Time Discharged Inpatient [facility] 01/03/14 10:31am Registered Clinic [facility] 01/01/14 4:18pm Registered Clinic [facility] 11/06/13 8:54am Departed Emergency Room [facility] 10/13/13 1:28pm Recent Diagnosis CHF exacerbation A-fib Asthma with COPD CAD (coronary artery disease) Diabetes GERD (gastroesophageal reflux disease) Insomnia Urge incontinence Sleep apnea Glaucoma Depression History of cirrhosis
[2016-07-31] MEDS ORDERED: DILT-36 PO (16:38)
[2016-07-31] MEDS ORDERED: LORA10TA7 PO (16:38)
[2016-07-31] MEDS ORDERED: [UNRECOGNIZED DRUG - CODE] PO (16:41)
--- NOTE | 2016-07-31 17:01 | NUR ---
LAB AT BEDSIDE FOR BLOOD DRAW.
--- NOTE | 2016-07-31 17:26 | ERPDOC ---
Departure Disposition Decision Date: Jul 31, 2016 Disposition Decision Time: 17:43 Disposition: 01 DISCHARGED HOME, SELF-CARE Impression Impression Impression: Primary Impression: Pain, dental Severity: Mild Condition: Improved Seen By: Physician only Referrals: EDUARD CLARK MD (Family) 2 Days Patient Instructions: Toothache (ED), Dental Caries (ED), ED Dental Follow-up Problems/Meds/Labs Reviewed?: Yes Medications reviewed and manag: Yes Follow up care ordered?: Yes Mental Status: Alert, Oriented Scripts Clindamycin HCl (Clindamycin HCl) 150 Mg Capsule 2 CAP PO Q6HR for 10 Days, #80 CAP 0 Refills TAKE WITH A FULL GLASS OF WATER TO AVOID ESOPHAGEAL IRRITATION. Prov: FAINA KILLIAN DO 07/31/16 HPI - General Medical General Chief Complaint: Toothache Stated Complaint: LEFT JAW BY EAR SWOLLEN Time Seen by Provider: 16:40 Source: patient Exam Limitations: no limitations HPI - General Medical Initial Comments 86-year-old female presents to emergency department with a chief complaint of pain in a left posterior tooth. Patient noted onset of symptoms 3 days ago. Patient states the pain is only present when she chews or bites down on her back tooth. She was at her care facility when the symptoms began. Symptoms have been persistent and intermittent nature as described. Patient describes the pain as sharp and present. Pain is moderate when present. No radiation. Patient denies any other complaints or associated symptoms. There is no chest pain or atypical shortness of breath. Patient has a history of COPD which is at baseline. She denies any other complaints or associated symptoms. Occurred At: home Onset: Gradual, other (Intermittent.) Allergies: Coded Allergies: cephalexin (Verified Allergy, Intermediate, 07/31/16) Penicillins (Verified Allergy, Unknown, 07/31/16) iodine (Verified Allergy, Unknown, 07/31/16) milk (Verified Allergy, Unknown, 07/31/16) gluten (Verified Adverse Reaction, Intermediate, diarrhea, stomach cramps , 07/31/16) Past History Patient Surgical History Back surgery Cholecystectomy Cardiac stent T&A Past Medical History Metabolic: diabetes, hypercholesterolemia, hypertension ENMT: cataracts, glaucoma Cardiac: A-fib, CAD, CHF, [place], echocardiogram Respiratory: COPD, asthma, other, pneumonia GI: GERD, gallbladder disease, other Female: other Neurological: concussion, headaches, migraines, neuropathy Musculoskeletal: back pain, osteoarthritis Psychological: depression Surgical History General: back, gallbladder, other, tonsils Cardiac: cardiac cath, cardiac stent Family History Family PMH: FOUND: CAD, CHF, [place], cancer, diabetes, hypertension Vaccines Hx Influenza Vaccination: Yes (FALL 2014) Hx Pneumococcal Vaccination: No (UNKNOWN MAYBE 2 YEARS AGO PER SON) Hx Tetanus Diptheria: No (UNKNOWN) Hx Tetanus, Diptheria, Pertuss: No (UNKNOWN) Social History Smoking Status: Former smoker Substance Use Type: does not use Alcohol Intake: none Housing: detention Current Occupational Status: retired Advance Directives: Yes DNR Review of Systems Constitutional Constitutional: DENIES: chills, fever Eyes General: DENIES: erythema, exudate Lids/Accessories: DENIES: erythema, swelling Vision: DENIES: acuity, blurring ENMT Ears: DENIES: drainage, erythema Hearing: DENIES: hearing loss Balance: DENIES: ataxia, falling to one side Sinuses: DENIES: congestion, pain Nose: DENIES: nosebleeds, pain Mouth/Throat: DENIES: painful swallowing, sore throat Teeth: pain Jaw: DENIES: pain Cardiovascular Cardiac: DENIES: chest pain, dyspnea on exertion Rhythm/Rate: DENIES: irregular beat, palpitations Vascular: DENIES: pedal edema, unilateral swelling Pulmonary Respiratory: DENIES: cough, dyspnea, pleuritic chest pain, sputum GI Upper Abdomen: DENIES: nausea, pain, vomiting Lower Abdomen: DENIES: diarrhea, pain General: DENIES: dysuria, frequency Musculoskeletal General: DENIES: joint pain, tenderness Integumentary Skin: DENIES: itching, rash Neurological General: DENIES: headache, numbness, weakness Psychiatric Psychiatric: DENIES: emotional instability, suicidal ideation/attempt Endocrine Endocrine: DENIES: polydipsia, polyphagia Hematologic/Lymphatic Hematologic/Lymphatic: DENIES: frequent nosebleeds, lymphadenopathy Allergic/Immunological Allergic/Immunoligical: DENIES: allergic reactions, hives Physical Exam General General Nourishment: well nourished, well developed, appears stated age, no acute distress, adult General Body Habitus: well groomed Vitals and Pain First Documented Vital Signs Date Time Temp Pulse Resp B/P Pulse Ox O2 Delivery O2 Flow Rate FiO2 07/31/16 16:20 97.9 62 20 235/106 90 Room Air 07/31/16 17:10 2.00 Weight: Kilograms: 81.100 Height (feet): 5 Height (inches): 2.00 Triage Pain Scale: RN VS reviewed by Provider: Yes Normal Exams: Head: Normocephalic w/o trauma Eyes: Pupils are PERRLA w/ EOMI, No scleral icterus, irritation, or foreign bodies noted ENMT: No facial trauma, nasal exudates, pharyngeal erythema, or exudates are noted Neck: Full range of motion, without adenopathy, JVD, bruits or thyromegaly Chest/Resp: Clear all florez, with good airflow, and symmetry bilaterally CV: Regular rate and rhythm, without murmur or gallop, Pulses 2+ all extremities, capillary refill, <2 seconds all ext., no pedal edema noted Abdomen: Bowel sounds positive, soft, non-tender, non-distended, no hepatosplenomegaly, masses or bruits noted Lymphatic: No lymphadenopathy, or lymphedema noted Musculoskeletal: No tenderness, or deformity noted, good range of motion, all extremities Integumentary: No rashes, hives, or bruising noted, hair and nails, without abnormality Neurologic: Patient is alert, and oriented, cranial nerves, motor/sensory/ cerebellar, exams w/o gross deficits, to observation Psychiatric: Patient exhibits, appropriate attention, emotion and affect ENMT (brief) Comments Oral - tooth number 19 is tender to percussion with dental caries. No sign of abscess. No exposed pulp or dentin. Uvula is midline. Voice is normal. Handling secretions without difficulty. No pharyngeal erythema. No tonsillar exudate. No elevation of tongue. No facial swelling or cellulitis. Differential Diagnoses Considering: Other (dental pain/dental caries/dental trauma/dental abscess) Progress Results/Orders Orders Procedure Category Date Status Time EKG EKG 07/31/16 Taken Troponin I W LAB 07/31/16 Complete Hemolysis Index Acetaminophen PHA 07/31/16 Complete (Tylenol Extra 18:00 Clindamycin (Cleocin) PHA 07/31/16 Complete 18:00 Lab Results Laboratory Tests Test 07/31/16 17:09 Troponin I 0.016ng/ml Chemistry Specimen Hemolysis < 15 Medications Current ED Medications Acetaminophen (Tylenol Extra Strength) 1,000 mg O ONCE PO Last administered on 07/31/16t 17:54; Start 07/31/16 at 18:00; Stop 07/31/16 at 18:01; Status DC Clindamycin HCl (Cleocin) 300 mg O ONCE PO Last administered on 07/31/16t 17: 53; Start 07/31/16 at 18:00; Stop 07/31/16 at 18:01; Status DC Progress Progress Patient is given acetaminophen and clindamycin in the emergency department with improvement of symptoms. Patient's EKG does not show any signs of ischemia and troponin is negative. Patient is discharged home in improved condition. She is to follow up as instructed. Patient is to return to the emergency Department if her condition worsens or changes in any manner. Patient's initial blood pressures upon arrival were taken with an inappropriately sized blood pressure cuff. Patient's true blood pressure was reassessed by myself with an appropriately sized cuff and was 185 systolic was the highest reading. She has not taken her evening antihypertensive medications at this time. She is asymptomatic with elevated blood pressure. She will take her antihypertensive medications upon arrival back to her care facility. Patient also was on room air at the time of her final vital signs. Patient has a history of COPD and her COPD is at baseline. Prescription for clindamycin was provided due to the patient's ALLERGIES. She is to follow up as instructed. She is to return to the emergency Department if her condition worsens or changes in any manner. Patient and son who arrives at bedside are in agreement with the current plan of management. Patient is discharged home in improved condition. EKG EKG : Rate: 60-100 Rhythm: other (electronic atrial pacer) [place]: normal QRS: RBBB ST/T: normal Interpreted by: signing physician FAINA KILLIAN DO Jul 31, 2016 17:26
--- NOTE | 2016-07-31 17:40 | NUR ---
PROVIDER DR. KILLIAN AT BEDSIDE, REMOVED OXYGEN AT THIS TIME. SPO2 READS 92% RA, WILL CONTINUE TO MONITOR.
[2016-07-31] MEDS ORDERED: CLIN-89 PO (17:45)
--- OUTSIDE RECORDS SUMMARY | 2016-07-31 17:55 | XMS REPORT | Continuity of Care Document ---
Author Author [facility] Organization [facility] Address Unknown Phone Unavailable Support Name Relationship Address Phone JES SIEGEL MD Caregiver [address] [place] [address] [place] [address] PEDRO LIU MD Caregiver [address] [place] [address] [place] [phone] JUAN CLARK MD Caregiver [address] [place] [phone] DARLEEN LAWTON Next Of Kin [address] [place] [address] Insurance Providers Payer Name Policy Number Subscriber Name Relationship Medicare [id number] Aurelia Duran 18 Self [facility] [id number] Aurelia Duran 18 Self Advance Directives Directive [...] PO TWICE A DAY 08/05/13 Active Fish Oil/[place]-3 Fatty Acids 1 Cap PO TWICE A [...] of your legs. 3.During office hours, call [phone] 4. After hours, please call [facility] at [phone], and have the operator engineer page your Surgeon IN THE EVENT OF [...] Hx Influenza Vaccination Y GIVEN 01/11/10 AT [facility] Historical Hx Pneumococcal Vaccination Y GIVEN 01/02/14 AT [facility] Historical Hx Tetanus, Diptheria, Pertussis N UNKNOWN Historical Hx Influenza Vaccination Y GIVEN 01/11/10 AT [facility] Historical Hx Tetanus Diptheria N UNKNOWN Historical [...] F (96.8 - 99.1) Temperature (Calculated Celsius) 35.96982 degrees C (36.0 - 37.3) Temperature Source [...] 01, 2014 9:21pm LAB TEST FORM REQUEST [id number] - Lipase January 08, 2014 12:24pm 136 [...] 12, 2014 5:29am 6.0 % N 0-9.0 KN-Bxn-D-Type Natriuretic Peptide January 08, 2014 12:24pm 133 [...] Has specimen been collected/obtained? Y Urine Specific [place] January 08, 2014 3:05pm 1.010 L - [...] 4 DAYS Name: AURELIA DURAN Unit #: [id number] : 1930 Sex: F Loc / Svc: ED DOS: 01/08/14 Signed Report #: [id number] DIAGNOSTIC IMAGING REPORT TYPE OF EXAM: CHEST, [...] procedures. Encounters Encounter Location Date/Time Discharged Inpatient [facility] 01/10/14 9:17am Discharged Inpatient [facility] 01/03/14 10:31am Registered Clinic [facility] 01/01/14 4:18pm Registered [facility] 11/06/13 8:54am Recent Diagnosis Dyspnea on exertion COPD exacerbation Chest pain on exertion Pneumonia Dyspnea on exertion Diastolic CHF, chronic Obesity (BMI 30.0-34.9) Chest pain as manifestation of blood transfusion reaction HTN (hypertension) Elevated serum creatinine Hyponatremia
--- OUTSIDE RECORDS SUMMARY | 2016-07-31 17:55 | XMS REPORT | Continuity of Care Document ---
Author Author [facility] Organization [facility] Address Unknown Phone Unavailable Care Team Providers Care Periodontist Name Role Phone Yuval Hoang Primary Care Physician [phone] Source Comments Some departments are not documenting in the electronic medical record. If you do not see the information that you expected, contact Release of Information in the Health Information Management department at [phone] for further assistance in locating additional records.[facility] Active Allergies and Adverse Reactions Allergen Noted Date Severity Reactions Comments Aspartame 09/16/2010 UNKNOWN Contrast Dye Iv, Iodine 09/16/2010 RASH, ITCHING Containing Gluten 09/16/2010 SEE COMMENTS Celiac disease Keflex 09/16/2010 NAUSEA AND VOMITING Lactose 09/16/2010 NAUSEA AND VOMITING Merthiolate (Thimerosal) 09/16/2010 UNKNOWN Penicillins 09/16/2010 SEE COMMENTS Bruising from IM injection Ywebexy-Lta-Dft Reductase 09/16/2010 UNKNOWN Inhibitors Current Medications Prescription [...]
--- OUTSIDE RECORDS SUMMARY | 2016-07-31 17:56 | XMS REPORT | Continuity of Care Document ---
Author Author [facility] Organization [facility] Address Unknown Phone Unavailable Allergies Medications Problems [...] Status Pt. Type Provider Facility Loc./Unit Complaint [id number] 05/08/2012 05:57:00 2012 10:55:00 DIS Outpatient Jose Hightower MD [facility]
--- OUTSIDE RECORDS SUMMARY | 2016-07-31 17:56 | XMS REPORT | Continuity of Care Document ---
Author Author [facility] Organization [facility] Address Unknown Phone Unavailable Support Name Relationship Address Phone DASHA DE SANTIAGO MD Caregiver [address] [place] [address] [place] [phone] EDUARD CLARK MD Caregiver [address] [place] [phone] DARLEEN LAWTON Next Of Kin [address] [place] [phone] Insurance Providers Payer Name Policy Number Subscriber Name Relationship Medicare [id number] Aurelia Duran 18 Self [facility] [id number] Aurelia Duran 18 Self Advance Directives Directive Response Recorded Date/Time Advanced Directives Type Living Will 10/13/13 1:33pm Ordered Resuscitation Status Full Code, unverified 02/12/14 8:44am Resuscitation Documents on File No 02/12/14 8:30am Chief Complaint and Reason for Visit Chief Complaint Chest Pain Reason for Visit [id number] Dyspnea on exertion Chest pain on exertion [...] PO TWICE A DAY 08/05/13 Active Fish Oil/[place]-3 Fatty Acids 1 Cap PO TWICE A [...] Discharge Date 01/12/14 6:00pm Disposition 02 TO [facility] Condition at Discharge Stable Instructions/Education Provided DI [...] F (96.8 - 99.1) Temperature (Calculated Celsius) 35.60465 degrees C (36.0 - 37.3) Temperature Source [...] 01, 2014 9:21pm LAB TEST FORM REQUEST [id number] - Lipase January 08, 2014 12:24pm 136 [...] COMMENT NURSE WILL CALL WHEN PT HERE IG-Sla-L-Type Natriuretic Peptide January 08, 2014 12:24pm 133 [...] Has specimen been collected/obtained? Y Urine Specific [place] January 08, 2014 3:05pm 1.010 L - [...] 5 DAYS Name: AURELIA DURAN Unit #: [id number] : 1930 Sex: F DISCHARGE SUMMARY Admit Date: 01/10/14 Report #: [id number] General Date Date DATE: 01/12/14 TIME: 14:46 [...] old woman who was recently admitted to [facility] for CHF exacerbation. She was discharged on [...] home from the hospital. She presented to [facility] ED for evaluation. There, lab and imaging [...] CM did get them set up with [facility]. She was instructed to f/u with [...] Mg PO ACB 10/13/13 Gabapentin 300 Mg Hfpjwpt842 Mg PO BID 10/13/13 Furosemide (Lasix)40 Mg Tubljt42 Mg PO DAILY 10/13/13 Loratadine 10 Mg Bmbmbe82 Mg PO DAILY 08/05/13 Fish Oil/[place]-3 Fatty Acids (Fish Oil 1,000 Mg Softgel)1 Cap Capsule1 Cap PO BID 08/05/13 Calcium Carbonate (Calcium 500)1 Tab Tablet1 Tab PO BID 08/05/13 Antiox#10/Om3/Dha/Epa/Lut/Zeax (I-Caps With Lutein-[place] 3 Sfg)1 Each Capsule1 Each PO DAILY 08/05/13 Aspirin 81 Mg Zivamq60 Mg PO DAILY 08/05/13 Red Yeast Rice 600 Mg Tablet1,200 Mg PO BID 08/05/13 Magnesium Oxide (Magnesium)250 Mg Ukdrmw761 Mg PO DAILY 08/05/13 Discharge Disposition stable Copies To 1: EDUARD CLARK MD, CARRIE DO Jan 12, 2014 14:46 Procedures No known history of procedures. Encounters Encounter Location Date/Time Departed [facility] 02/12/14 8:06am Registered [facility] 01/29/14 9:54am Discharged Inpatient [facility] 01/10/14 9:17am Discharged Inpatient [facility] 01/03/14 10:31am Registered [facility] 01/01/14 4:18pm
--- OUTSIDE RECORDS SUMMARY | 2016-07-31 17:57 | XMS REPORT | Continuity of Care Document ---
Author Author [facility] Organization [facility] Address Unknown Phone Unavailable Support Name Relationship Address Phone EDUARD CLARK MD Caregiver [address] [place] [phone] SONDRA BERGERON MD Caregiver [address] [place] [address] DARLEEN LAWTON Next Of Kin Unknown [phone] Insurance Providers Payer Name Policy Number Subscriber Name Relationship Medicare [id number] Aurelia Duran 18 Self [facility] [id number] [place]Aurelia 18 Self Advance Directives Directive Response Recorded [...] PO TWICE A DAY 08/05/13 Active Fish Oil/[place]-3 Fatty Acids 1 Cap PO TWICE A [...] F (96.8 - 99.1) Temperature (Calculated Celsius) 36.92165 degrees C (36.0 - 37.3) Pulse Rate [...] Has specimen been collected/obtained? Y Urine Specific [place] August 05, 2013 1:55pm <=1.005 L - [...] Encounters Encounter Location Date/Time Departed Emergency Room [facility] 10/13/13 1:28pm Departed Emergency Room [facility] 08/05/13 12:39pm Recent Diagnosis
--- OUTSIDE RECORDS SUMMARY | 2016-07-31 17:57 | XMS REPORT | Continuity of Care Document ---
Author Author [facility] Organization [facility] Address Unknown Phone Unavailable Support Name Relationship Address Phone LEVAR DE SANTIAGO MD Caregiver [address] [address] EDUARD CLARK MD Caregiver [address] [place], [place] [phone] LAWTONDARLEEN Next Of Kin [address] [place], [place] [phone] Insurance Providers Payer Name Policy Number Subscriber Name Relationship Medicare [id number] Aurelia Duran 18 Self [facility] [id number] Aurelia Duran 18 Self Advance Directives Directive Response Recorded Date/Time Advanced Directives Type Living Will 10/13/13 1:33pm Ordered Resuscitation Status Full Code, unverified 02/19/14 3:20am Chief Complaint and Reason for Visit Chief Complaint Chest Pain Reason for Visit [id number] Dyspnea on exertion Chest pain on exertion [...] PO TWICE A DAY 08/05/13 Active Fish Oil/[place]-3 Fatty Acids 1 Cap PO TWICE A [...] A DAY 02/19/14 Active Sodium Chloride 1 [place] NS NEEDED 02/19/14 Active Clopidogrel Bisulfate 75 [...] Discharge Date 01/12/14 6:00pm Disposition 02 TO [facility] Condition at Discharge Stable Instructions/Education Provided [...] Pneumococcal Vaccination Y GIVEN 01/02/14 AT [facility] Historical Hx Tetanus, Diptheria, Pertussis N UNKNOWN Historical Hx Influenza Vaccination Y JANUARY 2014 Historical Hx Tetanus Diptheria N UNKNOWN Historical Hx Tetanus, Diptheria, Pertussis N UNKNOWN Historical Hx Tetanus Toxoid Vaccination N UNKNOWN Historical Vital Signs Acute Vital Signs Vital Response Date/Time Temperature (Fahrenheit) 96.7 deg F (96.8 - 99.1) Temperature (Calculated Celsius) 35.81031 degrees C (36.0 - 37.3) Temperature Source [...] 01, 2014 9:21pm LAB TEST FORM REQUEST [id number] - Lipase January 08, 2014 12:24pm 136 [...] COMMENT NURSE WILL CALL WHEN PT HERE YS-Rhf-E-Type Natriuretic Peptide January 08, 2014 12:24pm 133 [...] Has specimen been collected/obtained? Y Urine Specific [place] January 08, 2014 3:05pm 1.010 L - [...] 5 DAYS Name: AURELIA DURAN Unit #: [id number] : 1930 Sex: F DISCHARGE SUMMARY Admit Date: 01/10/14 Report #: [id number] General Date Date DATE: 01/12/14 TIME: 14:46 [...] woman who was recently admitted to [facility] for CHF exacerbation. [...] from the hospital. She presented to [facility] ED for evaluation. [...] CM did get them set up with [facility]. She was instructed to f/u with [...] Mg PO ACB 10/13/13 Gabapentin 300 Mg Locrdkc231 Mg PO BID 10/13/13 Furosemide (Lasix)40 Mg Dqnwoi38 Mg PO DAILY 10/13/13 Loratadine 10 Mg Jscsif38 Mg PO DAILY 08/05/13 Fish Oil/[place]-3 Fatty Acids (Fish Oil 1,000 Mg Softgel)1 Cap Capsule1 Cap PO BID 08/05/13 Calcium Carbonate (Calcium 500)1 Tab Tablet1 Tab PO BID 08/05/13 Antiox#10/Om3/Dha/Epa/Lut/Zeax (I-Caps With Lutein-[place] 3 Sfg)1 Each Capsule1 Each PO DAILY 08/05/13 Aspirin 81 Mg Hegjps82 Mg PO DAILY 08/05/13 Red Yeast Rice 600 Mg Tablet1,200 Mg PO BID 08/05/13 Magnesium Oxide (Magnesium)250 Mg Xrjkpl494 Mg PO DAILY 08/05/13 Discharge Disposition stable Copies To 1: EDUARD CLARK MD, CARRIE DO Jan 12, 2014 14:46 Procedures Procedure Status Date Provider(s) ROUTINE VENIPUNCTURE completed 02/12/14 METABOLIC PANEL TOTAL CA completed 02/12/14 COMPLETE CBC W/AUTO DIFF WBC completed 02/12/14 ELECTROCARDIOGRAM TRACING completed 02/12/14 L HRT ARTERY/VENTRICLE ANGIO completed 02/12/14 DASHA DE SANTIAGO MD [id number] ITEM OR SERVICE completed 02/12/14725566"INJECTION, DIPHENHYDRAMINE HCL, UP TO 50 MG" completed 02/12/14099458"INJECTION, HEPARIN SODIUM, PER 1000 UNITS" completed 02/12/14239482"INJECTION, HEPARIN SODIUM, PER 1000 UNITS" completed 02/12/14843084"INJECTION, MIDAZOLAM HYDROCHLORIDE, PER 1 MG" completed 02/12/14951483"INJECTION, METHYLPREDNISOLONE SODIUM SUCCINATE, UP TO completed 003"INJECTION, FENTANYL CITRATE, 0.1 MG" completed 02/12/14406477HNOUEHDWNSZW DRUGS completed 02/12/14744024"INFUSION, NORMAL SALINE SOLUTION , 1000 CC" completed 02/12/14298919"LOW OSMOLAR CONTRAST MATERIAL, 300-399 MG/ML IODINE C completed Encounters Encounter Location Date/Time Departed [facility] 02/19/14 5:57am Departed [facility] 02/12/14 8:06am Registered Clinic [facility] 01/29/14 9:54am Discharged Inpatient [facility] 01/10/14 9:17am Discharged Inpatient [facility] 01/03/14 10:31am Registered Clinic [facility] 01/01/14 4:18pm
--- OUTSIDE RECORDS SUMMARY | 2016-07-31 17:57 | XMS REPORT | Continuity of Care Document ---
Author Author [facility] Organization [facility] Address Unknown Phone Unavailable Support Name Relationship Address Phone MAGNUS BACK MD Caregiver [address] [place] [address] [address] [place] [phone] ОЛЬГА JOHNSON FACS, MD Caregiver [address] [place] [address] [address] [place] [phone] PEDRO LIU MD Caregiver [address] [place] [address] [place] [phone] EDUARD CLARK MD Caregiver [address] [place] [address] [place] [phone] DARLEEN LAWTON Next Of Kin [address] [place] [address] Insurance Providers Payer Name Policy Number Subscriber Name Relationship Medicare [id number] Aurelia Duran 18 Self [facility] [id number] Aurelia Duran 18 Self Advance Directives Directive [...] perforation Closed rib fracture Dyslipidemia History of NV (myocardial infarction) Allergic rhinitis Osteoarthritis Back pain [...] ~04/02/2014 Active Dyslipidemia Unknown Active History of NV (myocardial infarction) Unknown Active Allergic rhinitis Unknown [...] PO TWICE A DAY 08/05/13 Active Fish Oil/[place]aty-3 Fatty Acids 1 Cap PO TWICE A [...] A DAY 02/19/14 Active Sodium Chloride 1 [place] NS NEEDED 02/19/14 Active Clopidogrel Bisulfate 75 [...] have difficulty breathing. During office hours, call [phone]. After hours, please call [facility] at [phone] and have the hooker operator page Dr. Prtety or the covering surgeon. *In the event of an emergency, seek medical care at the nearest emergency room.* Condition at time of discharge: Good Plan of Care Discharge Date 04/11/14 4:35pm Disposition 06 HOME HEALTH SERVICE Instructions/Education Provided [facility] Congestive Heart Failure DI for Diverticulitis Prescriptions [...] Hx Pneumococcal Vaccination Y GIVEN 01/02/14 AT [facility] Historical Hx Tetanus, Diptheria, Pertussis N UNKNOWN Historical Hx Influenza Vaccination Y JANUARY 2014 Historical Hx Tetanus Diptheria N UNKNOWN Historical Hx Tetanus, Diptheria, Pertussis N UNKNOWN Historical Hx Tetanus Toxoid Vaccination N UNKNOWN Historical Vital Signs Acute Vital Signs Vital Response Date/Time Temperature (Fahrenheit) 96.7 deg F (96.8 - 99.1) Temperature (Calculated Celsius) 35.64071 degrees C (36.0 - 37.3) Temperature Source [...] 01, 2014 9:21pm LAB TEST FORM REQUEST [id number] - Large Platelets April 08, 2014 4:37am [...] 10, 2014 5:05am 13.4 % H 0-9.0 II-Frk-G-Type Natriuretic Peptide April 02, 2014 8:46am 438 [...] Has specimen been collected/obtained? Y Urine Specific [place] April 02, 2014 9:05am 1.010 L - [...] 5 DAYS Name: AURELIA DURAN Unit #: [id number] : 1930 Sex: F DISCHARGE SUMMARY Admit Date: 04/02/14 Report #: [id number] General Date Date DATE: 04/11/14 TIME: 14:18 Attending Physician Magnus Back MD Admitting Physician Magnus Back MD Consulting Physician [facility] Dr Johnson Admitting Diagnosis (1) Syncope Status: Acute (2) Diverticulitis of large intestine with perforation Status: Acute (3) Respiratory insufficiency Status: Acute Assessment & Plan: present on admission (4) Closed rib fracture Onset Date: ~ 04/02/2014 Status: Acute Assessment & Plan: gqjp46za rib (5) Bradycardia Status: Acute Assessment & [...] Urge incontinence Status: Chronic (22) History of NV (myocardial infarction) Status: Chronic (23) Dyslipidemia Status: [...] 84 year old female who presented to [facility] ED today, 04/02/14, via EMS for severe low back pain after falling at home. She reports that she remembers going to bed last night and then woke up this morning on the floor. She pushed her emergency button to alert EMS who responded and transported her to [facility] ED. Upon arrival to the ED she [...] ~ 04/02/2014 Status: Acute Assessment & Plan: [id number] rib (5) Bradycardia Status: Resolved Assessment & [...] (18) Diabetes Status: Chronic (19) History of NV (myocardial infarction) Status: Chronic (20) Dyslipidemia Status: Chronic DVT Prophylaxis: SCD'S GI Prophylaxis: Protonix Code Status Full Code Home Meds Active Scripts Polyethylene Glycol 3350 17 Gm Powd.pack1 Packet PO DAILY 30 Days Prov:OSCAR MCCORMICK DO 04/11/14 Ciprofloxacin HCl (Cipro)500 Mg Wksrpi247 Mg PO Q12HR 10 Days Prov:OSCAR MCCORMICK DO 04/11/14 Hydrocodone/Acetaminophen (Hydrocodon-Acetaminophen 5-325)1 Tab Tablet1 Tab PO Q4H PRN (PAIN) #30 TAB Prov:OSCAR MCCORMICK DO 04/11/14 Metronidazole (Flagyl)500 Mg Yjsokp686 Mg PO Q12HR 10 Days Prov:OSCAR MCCORMICK DO 04/11/14 Clopidogrel Bisulfate (Plavix)75 Mg Lerfcl00 Mg PO DAILY #30 Ref 11 Prov:LEVAR DE SANTIAGO MD 02/19/14 Potassium Chloride 20 Meq Tablet.er20 Meq PO BIDWM #0 TAB Take 1 tablet, by mouth, two times a day with meals. Prov:DASHA DE SANTIAGO MD 02/12/14 Enalapril Maleate 10 Mg Tablet1 Tab PO BID #60 TAB Prov:OSCAR MCCORMICK DO 01/03/14 Reported Medications Sodium Chloride (Saline Nasal [place])30 Ml Spray1 [place] NS PRN 02/19/14 Guaifenesin 400 Mg Tablet1 [...] Mg PO ACB 10/13/13 Gabapentin 300 Mg Aohhgzz445 Mg PO BID 10/13/13 Furosemide (Lasix)40 Mg Fkawov53 Mg PO DAILY RESTART ON FEB 14. 10/13/13 Loratadine 10 Mg Drncbd03 Mg PO DAILY 08/05/13 Fish Oil/K[place]-3 Fatty Acids (Fish Oil 1,000 Mg Softgel)1 Cap Capsule1 Cap PO BID 08/05/13 Calcium Carbonate (Calcium 500)1 Tab Tablet1 Tab PO BID 08/05/13 Antiox#10/Om3/Dha/Epa/Lut/Zeax (I-Caps With Lutein-[place] 3 Sfg)1 Each Capsule1 Each PO DAILY 08/05/13 Aspirin 81 Mg Rqlrry25 Mg PO DAILY 08/05/13 Red Yeast Rice 600 Mg Tablet1,200 Mg PO BID 08/05/13 Magnesium Oxide (Magnesium)250 Mg Wluwqt475 Mg PO DAILY 08/05/13 Discharge Disposition stable [...] ANGIO completed 02/12/14 DASHA DE SANTIAGO MD [id number] ITEM OR SERVICE completed 02/12/14734300"INJECTION, DIPHENHYDRAMINE HCL, UP TO 50 MG" completed 02/12/14"INJECTION, HEPARIN SODIUM, PER 1000 UNITS" completed 02/12/14"INJECTION, HEPARIN SODIUM, PER 1000 UNITS" completed 02/12/14"INJECTION, MIDAZOLAM HYDROCHLORIDE, PER 1 MG" completed 02/12/14"INJECTION, METHYLPREDNISOLONE SODIUM SUCCINATE, UP TO completed "INJECTION, FENTANYL CITRATE, 0.1 MG" completed 02/12/14204810ZZPQNCBRTRWD DRUGS completed 02/12/14"INFUSION, NORMAL SALINE SOLUTION , 1000 CC" completed 02/12/14"LOW OSMOLAR CONTRAST MATERIAL, 300-399 MG/ML IODINE C completed ROUTINE VENIPUNCTURE completed 02/19/14 METABOLIC PANEL TOTAL CA completed 02/19/14 BL SMEAR W/DIFF WBC COUNT completed 02/19/14 COMPLETE CBC AUTOMATED completed 02/19/14 [id number] ITEM OR SERVICE completed 02/19/14 [id number] ITEM OR SERVICE completed 02/19/14 [id number] ITEM OR SERVICE completed 02/19/14 [id number]-MCNZYTC ITEM OR SERVICE completed 02/19/14430701"CLOSURE DEVICE, VASCULAR (IMPLANTABLE/INSERTABLE)" completed 02/19/14083539GJQHX WIRE completed 02/19/14"STENT, COATED/COVERED, WITH DELIVERY SYSTEM" completed 02/19/14"CATHETER, GUIDING (MAY INCLUDE INFUSION/PERFUSION CAP completed 170110EZIVN THAN PEEL-AWAY completed 02/19/14 completed 02/19/14 LEVAR DE SANTIAGO MD [id number]"INJECTION, HEPARIN SODIUM, PER 1000 UNITS" completed 02/19/14"INJECTION, HEPARIN SODIUM, PER 1000 UNITS" completed 02/19/14"INJECTION, MIDAZOLAM HYDROCHLORIDE, PER 1 MG" completed 02/19/14"INJECTION, FENTANYL CITRATE, 0.1 MG" completed 02/19/14"INFUSION, NORMAL SALINE SOLUTION , 1000 CC" completed 02/19/14"LOW OSMOLAR CONTRAST MATERIAL, 300-399 MG/ML IODINE C completed Encounters Encounter Location Date/Time Discharged Inpatient [facility] 04/02/14 8:47am Departed Clinic [facility] 02/19/14 5:57am Departed Clinic [facility] 02/12/14 8:06am Registered Clinic [facility] 01/29/14 9:54am Discharged Inpatient [facility] 01/10/14 9:17am Recent Diagnosis Diabetes Urge incontinence History of cirrhosis Bradycardia Diverticulitis of large intestine with perforation Closed rib fracture Dyslipidemia History of NV (myocardial infarction) Allergic rhinitis Osteoarthritis Back pain Respiratory insufficiency Syncope Injury of jaw Low back pain Diverticulitis of large intestine with perforation Fall
--- OUTSIDE RECORDS SUMMARY | 2016-07-31 17:58 | XMS REPORT | Continuity of Care Document ---
Author Author [facility] Organization [facility] Address Unknown Phone Unavailable Support Name Relationship Address Phone JACE OSCAR DO Caregiver [address] [place] [address] EDUARD CLARK MD Caregiver [address] [phone] DARLEEN LAWTON Next Of Kin Unknown [phone] Insurance Providers Payer Name Policy Number Subscriber Name Relationship Medicare [id number] RogerAurelia 18 Self [facility] [id number] Aurelia Duran 18 Self Advance Directives Directive [...] PO TWICE A DAY 08/05/13 Active Fish Oil/[place]-3 Fatty Acids 1 Cap PO TWICE A [...] AT 1:00PM FOR ECHOCARDIOGRAM. CHECK IN AT [facility] REGISTRATION ON 01/15/14 AT [...] BECOMES DISLODGED OR WET Durable Medical Equipment: [employer] [phone] Notify Physician If: CALL YOUR SURGEON IF: [...] and call Dr. Camarillo with the result [phone]. Condition at time of discharge: Good Plan of Care Discharge Date 01/03/14 3:55pm Disposition 01 DISCHARGED HOME, SELF-CARE Instructions/Education Provided [facility] Congestive Heart Failure Prescriptions See Medications Section Functional Status Query Response Date Recorded Mental Status Alert October 13, 2013 4:56pm Allergies, Adverse Reactions, Alerts Allergen Type Severity Reaction Status Last Updated iodine Allergy Unknown Active 01/02/14 Penicillin Allergy Unknown Active 01/02/14 Cephalexin Allergy Intermediate Active 01/02/14 Immunizations Name Given Type Hx Influenza Vaccination No Historical Hx Pneumococcal Vaccination Y GIVEN 01/02/14 AT [facility] Historical Hx Influenza Vaccination No Historical Vital Signs Acute Vital Signs Vital Response Date/Time Temperature (Fahrenheit) 98.9 deg F (96.8 - 99.1) Temperature (Calculated Celsius) 37.97658 degrees C (36.0 - 37.3) Temperature Source [...] 02, 2014 5:13am 10.4 % H 0-9.0 MS-Inc-H-Type Natriuretic Peptide January 02, 2014 5:13am 244 [...] REFLEXHas specimen been collected/obtained? Y Urine Specific [place] January 01, 2014 8:10pm <=1.005 L - [...] DN 4.5-11.0 Name: AURELIA DURAN Unit #: [id number] : 1930 Sex: F DISCHARGE SUMMARY Admit Date: 01/03/14 Report #: [id number] General Date Date DATE: 01/03/14 TIME: 14:50 [...] 83-year-old female who was brought to the [facility] to see Dr. Min for increasing shortness [...] TAB Prov:OSCAR BROWN DO 01/03/14 Hydrocodone Bit/Acetaminophen ([place] 5/325 Tablet)1 Tab Tablet1-2 Tab PO Q4-6H PRN (PAIN) #20 TAB Prov:SIA CARBONE 10/13/13 Reported Medications Tramadol Hcl 50 Mg Axddfd39 Mg PO PRN 10/13/13 Tolterodine Tartrate (Detrol La)4 Mg Cap.sr.24h4 Mg PO DAILY 10/13/13 Budesonide/Formoterol Fumarate (Symbicort 160-4.5 Mcg Inhaler)10.2 Gm Hfa.aer.ad10.2 Gm IH DAILY 10/13/13 Potassium Chloride 10 Meq Capsule.sa10 Meq PO BID 10/13/13 Iron Ps Cmplx/Vit B12/Fa (Poly-Iron 150 Forte Capsule)1 Udcap Capsule1 Udcap PO BID 10/13/13 Omeprazole (Prilosec)40 Mg Capsule.dr40 Mg PO ACB 10/13/13 Gabapentin 300 Mg Earjxzs563 Mg PO BID 10/13/13 Furosemide (Lasix)40 Mg Vfqtny70 Mg PO DAILY 10/13/13 Loratadine 10 Mg Ceeaxi71 Mg PO DAILY 08/05/13 Fish Oil/[place]-3 Fatty Acids (Fish Oil 1,000 Mg Softgel)1 Cap Capsule1 Cap PO BID 08/05/13 Calcium Carbonate (Calcium 500)1 Tab Tablet1 Tab PO BID 08/05/13 Antiox#10/Om3/Dha/Epa/Lut/Zeax (I-Caps With Lutein-[place] 3 Sfg)1 Each Capsule1 Each PO DAILY 08/05/13 Aspirin 81 Mg Hklfkl70 Mg PO DAILY 08/05/13 Red Yeast Rice 600 Mg Tablet1,200 Mg PO BID 08/05/13 Magnesium Oxide (Magnesium)250 Mg Muustj678 Mg PO DAILY 08/05/13 Discontinued Reported Medications [...] procedures. Encounters Encounter Location Date/Time Discharged Inpatient [facility] 01/03/14 10:31am Registered Clinic [facility] 01/01/14 4:18pm Registered Clinic [facility] 11/06/13 8:54am Departed Emergency Room [facility] 10/13/13 1:28pm Recent Diagnosis CHF exacerbation A-fib Asthma with COPD CAD (coronary artery disease) Diabetes GERD (gastroesophageal reflux disease) Insomnia Urge incontinence Sleep apnea Glaucoma Depression History of cirrhosis
[2016-07-31] MEDS ORDERED: ACETAMINOPHEN 500 MG TABLET PO ONE (18:00)
[2016-07-31] MEDS ORDERED: CLINDAMYCIN 300 MG CAPSULE PO ONE (18:00)
--- NOTE | 2016-07-31 18:13 | NUR ---
REPORT CALLED TO FABIANO, NURSING STAFF AT [facility]. DENIES QUESTIONS. TRANSPORTATION BACK TO FACILITY REQUESTED WITH ETA OF 20 TO 30 MINUTES.
[2016-07-31 18:53] VITALS: BP 172/98; PULSE 72; RESP 18; TEMP 97.9; O2SAT 92
== END 2016-07-31 18:53 | disposition home or self-care (01) ==
LOC: ED 16:17
DX: K08.89 Other specified disorders of teeth and supporting structures (principal); I10 Essential (primary) hypertension
CPT/HCPCS: 36415; 84484; 93005; 99283; A9270

== ENCOUNTER 2016-08-19 09:02 | Emergency (ER) | payer MEDICARE, BC, MEDICAID ==
[~2016-08-19] VITALS: Ht 160 cm; Wt 78.9 kg
[~2016-08-19 09:02] MED LIST changes: -BISA10SU8 RECTALLY; +CLIN-89 PO; +DILT-36 PO; -DILT120C91 PO; -LORA0.5T2 PO; +LORA10TA7 PO; -MAG360OR92 PO; -MINO50CA PO; -NYST15PO3 TOP; -POLY15DR57 BOTH EYES; -POLY255P2 PO; +[UNRECOGNIZED DRUG - CODE] PO
[2016-08-19 09:05] VITALS: Ht 160 cm; Wt 78.9 kg
--- OUTSIDE RECORDS SUMMARY | 2016-08-19 09:06 | XMS REPORT | Continuity of Care Document ---
Author Author [facility] Organization [facility] Address Unknown Phone Unavailable Care Team Providers Care Tax Manager Cpa Name Role Phone Yuval Hoang Primary Care Physician [phone] Source Comments Some departments are not documenting in the electronic medical record. If you do not see the information that you expected, contact Release of Information in the Health Information Management department at [phone] for further assistance in locating additional records.[facility] Active Allergies and Adverse Reactions Allergen Noted Date Severity Reactions Comments Aspartame 09/16/2010 UNKNOWN Contrast Dye Iv, Iodine 09/16/2010 RASH, ITCHING Containing Gluten 09/16/2010 SEE COMMENTS Celiac disease Keflex 09/16/2010 NAUSEA AND VOMITING Lactose 09/16/2010 NAUSEA AND VOMITING Merthiolate (Thimerosal) 09/16/2010 UNKNOWN Penicillins 09/16/2010 SEE COMMENTS Bruising from IM injection Rzzqiow-Jlt-Tjw Reductase 09/16/2010 UNKNOWN Inhibitors Current Medications Prescription [...]
--- OUTSIDE RECORDS SUMMARY | 2016-08-19 09:06 | XMS REPORT | Continuity of Care Document ---
Author Author [facility] Organization [facility] Address Unknown Phone Unavailable Support Name Relationship Address Phone JES SIEGEL MD Caregiver [address] [place] [address] [place] [address] PEDRO LIU MD Caregiver [address] [place] [address] [place] [phone] JUAN CLARK MD Caregiver [address] [place] [phone] DARLEEN LAWTON Next Of Kin [address] [place] [address] Insurance Providers Payer Name Policy Number Subscriber Name Relationship Medicare [id number] Aurelia Duran 16 Self [facility] [id number] Aurelia Duran 16 Self Advance Directives Directive [...] PO TWICE A DAY 08/05/13 Active Fish Oil/[place]-3 Fatty Acids 1 Cap PO TWICE A [...] of your legs. 3.During office hours, call [phone] 4. After hours, please call [facility] at [phone], and have the stone processing machine operator page your Surgeon IN THE [...] Hx Influenza Vaccination Y GIVEN 01/11/10 AT [facility] Historical Hx Pneumococcal Vaccination Y GIVEN 01/02/14 AT [facility] Historical Hx Tetanus, Diptheria, Pertussis N UNKNOWN Historical Hx Influenza Vaccination Y GIVEN 01/11/10 AT [facility] Historical Hx Tetanus Diptheria N UNKNOWN Historical [...] F (96.8 - 99.1) Temperature (Calculated Celsius) 35.02827 degrees C (36.0 - 37.3) Temperature Source [...] 01, 2014 9:21pm LAB TEST FORM REQUEST [id number] - Lipase January 08, 2014 12:24pm 136 [...] 12, 2014 5:29am 6.0 % N 0-9.0 CN-Xxu-V-Type Natriuretic Peptide January 08, 2014 12:24pm 133 [...] Has specimen been collected/obtained? Y Urine Specific [place] January 08, 2014 3:05pm 1.010 L - [...] 4 DAYS Name: AURELIA DURAN Unit #: [id number] : 1930 Sex: F Loc / Svc: ED DOS: 01/08/14 Signed Report #: [id number] DIAGNOSTIC IMAGING REPORT TYPE OF EXAM: CHEST, [...] procedures. Encounters Encounter Location Date/Time Discharged Inpatient [facility] 01/10/14 9:17am Discharged Inpatient [facility] 01/03/14 10:31am Registered Clinic [facility] 01/01/14 4:18pm Registered [facility] 11/06/13 8:54am Recent Diagnosis Dyspnea on exertion COPD exacerbation Chest pain on exertion Pneumonia Dyspnea on exertion Diastolic CHF, chronic Obesity (BMI 30.0-34.9) Chest pain as manifestation of blood transfusion reaction HTN (hypertension) Elevated serum creatinine Hyponatremia
--- OUTSIDE RECORDS SUMMARY | 2016-08-19 09:06 | XMS REPORT | Continuity of Care Document ---
Author Author [facility] Organization [facility] Address Unknown Phone Unavailable Allergies Medications Problems [...] Status Pt. Type Provider Facility Loc./Unit Complaint [id number] 05/08/2012 05:57:00 2012 10:55:00 DIS Outpatient Jose Hightower MD [facility]
--- OUTSIDE RECORDS SUMMARY | 2016-08-19 09:07 | XMS REPORT | Continuity of Care Document ---
Author Author [facility] Organization [facility] Address Unknown Phone Unavailable Support Name Relationship Address Phone DASHA DE SANTIAGO MD Caregiver [address] [place] [address] [place] [phone] EDUARD CLARK MD Caregiver [address] [place] [phone] DARLEEN LAWTON Next Of Kin [address] [place] [id number] Insurance Providers Payer Name Policy Number Subscriber Name Relationship Medicare [id number] Aurelia Duran 18 Self [facility] [id number] Aurelia Duran 16 Self Advance Directives Directive Response Recorded Date/Time Advanced Directives Type Living Will 10/13/13 1:33pm Ordered Resuscitation Status Full Code, unverified 02/12/14 8:44am Resuscitation Documents on File No 02/12/14 8:30am Chief Complaint and Reason for Visit Chief Complaint Chest Pain Reason for Visit [id number] Dyspnea on exertion Chest pain on exertion [...] PO TWICE A DAY 08/05/13 Active Fish Oil/[place]-3 Fatty Acids 1 Cap PO TWICE A [...] Discharge Date 01/12/14 6:00pm Disposition 02 TO [facility] Condition at Discharge Stable Instructions/Education Provided [...] Hx Pneumococcal Vaccination Y GIVEN 01/02/14 AT [facility] Historical Hx Tetanus, Diptheria, Pertussis N UNKNOWN Historical Hx Influenza Vaccination Y PT UNSURE BELIEVES LAST ONE PASTIN 2012 Historical Hx Tetanus Diptheria N UNKNOWN Historical Hx Tetanus, Diptheria, Pertussis N UNKNOWN Historical Hx Tetanus Toxoid Vaccination N UNKNOWN Historical Vital Signs Acute Vital Signs Vital Response Date/Time Temperature (Fahrenheit) 96.3 deg F (96.8 - 99.1) Temperature (Calculated Celsius) 35.70863 degrees C (36.0 - 37.3) Temperature Source [...] 01, 2014 9:21pm LAB TEST FORM REQUEST [id number] - Lipase January 08, 2014 12:24pm 136 [...] COMMENT NURSE WILL CALL WHEN PT HERE DY-Inb-F-Type Natriuretic Peptide January 08, 2014 12:24pm 133 [...] Has specimen been collected/obtained? Y Urine Specific [place] January 08, 2014 3:05pm 1.010 L - [...] 5 DAYS Name: AURELIA DURAN Unit #: [id number] : 1930 Sex: F DISCHARGE SUMMARY Admit Date: 01/10/14 Report #: [id number] General Date Date DATE: 01/12/14 TIME: 14:46 [...] old woman who was recently admitted to [facility] for CHF exacerbation. She was [...] home from the hospital. She presented to [facility] ED for evaluation. There, lab [...] CM did get them set up with [facility]. She was instructed to f/u with her [...] Mg PO ACB 10/13/13 Gabapentin 300 Mg Htxljeo475 Mg PO BID 10/13/13 Furosemide (Lasix)40 Mg Pwpicc96 Mg PO DAILY 10/13/13 Loratadine 10 Mg Fwlwts64 Mg PO DAILY 08/05/13 Fish Oil/[place]-3 Fatty Acids (Fish Oil 1,000 Mg Softgel)1 Cap Capsule1 Cap PO BID 08/05/13 Calcium Carbonate (Calcium 500)1 Tab Tablet1 Tab PO BID 08/05/13 Antiox#10/Om3/Dha/Epa/Lut/Zeax (I-Caps With Lutein-[place] 3 Sfg)1 Each Capsule1 Each PO DAILY 08/05/13 Aspirin 81 Mg Iyhcha14 Mg PO DAILY 08/05/13 Red Yeast Rice 600 Mg Tablet1,200 Mg PO BID 08/05/13 Magnesium Oxide (Magnesium)250 Mg Kjmjer949 Mg PO DAILY 08/05/13 Discharge Disposition stable Copies To 1: EDUARD CLARK MD, CARRIE DO Jan 12, 2014 14:46 Procedures No known history of procedures. Encounters Encounter Location Date/Time Departed [facility] 02/12/14 8:06am Registered [facility] 01/29/14 9:54am Discharged Inpatient [facility] 01/10/14 9:17am Discharged Inpatient [facility] 01/03/14 10:31am Registered [facility] 01/01/14 4:18pm
--- OUTSIDE RECORDS SUMMARY | 2016-08-19 09:07 | XMS REPORT | Continuity of Care Document ---
Author Author [facility] Organization [facility] Address Unknown Phone Unavailable Support Name Relationship Address Phone LEVAR DE SANTIAGO MD Caregiver [address] [phone] EDUARD CLARK MD Caregiver [address] [place], [place] [phone] LAWTONDARLEEN Next Of Kin [address] [place] [id number] Insurance Providers Payer Name Policy Number Subscriber Name Relationship Medicare [id number] Aurelia Duran [address] [facility] [id number] Aurelia Duran 16 Self Advance Directives Directive Response Recorded Date/Time Advanced Directives Type Living Will 10/13/13 1:33pm Ordered Resuscitation Status Full Code, unverified 02/19/14 3:20am Chief Complaint and Reason for Visit Chief Complaint Chest Pain Reason for Visit [id number] Dyspnea on exertion Chest pain on exertion [...] PO TWICE A DAY 08/05/13 Active Fish Oil/[place]-3 Fatty Acids 1 Cap PO TWICE A [...] A DAY 02/19/14 Active Sodium Chloride 1 [place] NS NEEDED 02/19/14 Active Clopidogrel Bisulfate 75 [...] Discharge Date 01/12/14 6:00pm Disposition 02 TO [facility] Condition at Discharge Stable Instructions/Education Provided DI [...] Hx Pneumococcal Vaccination Y GIVEN 01/02/14 AT [facility] Historical Hx Tetanus, Diptheria, Pertussis N UNKNOWN Historical Hx Influenza Vaccination Y JANUARY 2014 Historical Hx Tetanus Diptheria N UNKNOWN Historical Hx Tetanus, Diptheria, Pertussis N UNKNOWN Historical Hx Tetanus Toxoid Vaccination N UNKNOWN Historical Vital Signs Acute Vital Signs Vital Response Date/Time Temperature (Fahrenheit) 96.7 deg F (96.8 - 99.1) Temperature (Calculated Celsius) 35.02298 degrees C (36.0 - 37.3) Temperature Source [...] 01, 2014 9:21pm LAB TEST FORM REQUEST [id number] - Lipase January 08, 2014 12:24pm 136 [...] COMMENT NURSE WILL CALL WHEN PT HERE HY-Dhs-R-Type Natriuretic Peptide January 08, 2014 12:24pm 133 [...] Has specimen been collected/obtained? Y Urine Specific [place] January 08, 2014 3:05pm 1.010 L - [...] 5 DAYS Name: AURELIA DURAN Unit #: [id number] : 1930 Sex: F DISCHARGE SUMMARY Admit Date: 01/10/14 Report #: [id number] General Date Date DATE: 01/12/14 TIME: 14:46 [...] old woman who was recently admitted to [facility] for CHF exacerbation. She was discharged on [...] home from the hospital. She presented to [facility] ED for evaluation. There, lab and imaging [...] CM did get them set up with [facility]. She was instructed to f/u with her [...] Mg PO ACB 10/13/13 Gabapentin 300 Mg Wwldecl949 Mg PO BID 10/13/13 Furosemide (Lasix)40 Mg Oddjyg01 Mg PO DAILY 10/13/13 Loratadine 10 Mg Hsjkgk43 Mg PO DAILY 08/05/13 Fish Oil/[place]-3 Fatty Acids (Fish Oil 1,000 Mg Softgel)1 Cap Capsule1 Cap PO BID 08/05/13 Calcium Carbonate (Calcium 500)1 Tab Tablet1 Tab PO BID 08/05/13 Antiox#10/Om3/Dha/Epa/Lut/Zeax (I-Caps With Lutein-[place] 3 Sfg)1 Each Capsule1 Each PO DAILY 08/05/13 Aspirin 81 Mg Vjghlg43 Mg PO DAILY 08/05/13 Red Yeast Rice 600 Mg Tablet1,200 Mg PO BID 08/05/13 Magnesium Oxide (Magnesium)250 Mg Ytgukb919 Mg PO DAILY 08/05/13 Discharge Disposition stable Copies To 1: EDUARD CLARK MD, CARRIE DO Jan 12, 2014 14:46 Procedures Procedure Status Date Provider(s) ROUTINE VENIPUNCTURE completed 02/12/14 METABOLIC PANEL TOTAL CA completed 02/12/14 COMPLETE CBC W/AUTO DIFF WBC completed 02/12/14 ELECTROCARDIOGRAM TRACING completed 02/12/14 L HRT ARTERY/VENTRICLE ANGIO completed 02/12/14 DASHA DE SANTIAGO MD [id number] ITEM OR SERVICE completed 02/12/14714329"INJECTION, DIPHENHYDRAMINE HCL, UP TO 50 MG" completed 02/12/14702454"INJECTION, HEPARIN SODIUM, PER 1000 UNITS" completed 02/12/14381677"INJECTION, HEPARIN SODIUM, PER 1000 UNITS" completed 02/12/14932613"INJECTION, MIDAZOLAM HYDROCHLORIDE, PER 1 MG" completed 02/12/14721896"INJECTION, METHYLPREDNISOLONE SODIUM SUCCINATE, UP TO completed 003"INJECTION, FENTANYL CITRATE, 0.1 MG" completed 02/12/14132010CCHPDNCGOVAP DRUGS completed 02/12/14876726"INFUSION, NORMAL SALINE SOLUTION , 1000 CC" completed 02/12/14034567"LOW OSMOLAR CONTRAST MATERIAL, 300-399 MG/ML IODINE C completed Encounters Encounter Location Date/Time Departed [facility] 02/19/14 5:57am Departed [facility] 02/12/14 8:06am Registered Clinic [facility] 01/29/14 9:54am Discharged Inpatient [facility] 01/10/14 9:17am Discharged Inpatient [facility] 01/03/14 10:31am Registered Clinic [facility] 01/01/14 4:18pm
--- OUTSIDE RECORDS SUMMARY | 2016-08-19 09:07 | XMS REPORT | Continuity of Care Document ---
Author Author [facility] Organization [facility] Address Unknown Phone Unavailable Support Name Relationship Address Phone EDUARD CLARK MD Caregiver [address] [place] [phone] SONDRA BERGERON MD Caregiver [address] [place] [address] DARLEEN LAWTON Next Of Kin Unknown [phone] Insurance Providers Payer Name Policy Number Subscriber Name Relationship Medicare [id number] Aurelia Duran 18 Self [facility] [[email or web address]] [id number] MorrillAurelia 16 Self Advance Directives Directive Response Recorded [...] PO TWICE A DAY 08/05/13 Active Fish Oil/[place]-3 Fatty Acids 1 Cap PO TWICE A [...] F (96.8 - 99.1) Temperature (Calculated Celsius) 36.14163 degrees C (36.0 - 37.3) Pulse Rate [...] Has specimen been collected/obtained? Y Urine Specific [place] August 05, 2013 1:55pm <=1.005 L - [...] Encounters Encounter Location Date/Time Departed Emergency Room [facility] 10/13/13 1:28pm Departed Emergency Room [facility] 08/05/13 12:39pm Recent Diagnosis
--- OUTSIDE RECORDS SUMMARY | 2016-08-19 09:08 | XMS REPORT | Continuity of Care Document ---
Author Author [facility] Organization [facility] Address Unknown Phone Unavailable Support Name Relationship Address Phone MAGNUS BACK MD Caregiver [address] [place] [address] [place] [phone] ОЛЬГА JOHNSON FACS, MD Caregiver [address] [place] [address] [address] [place] [address] [phone] PEDRO LIU MD Caregiver [address] [place] [address] [place] [phone] EDUARD CLARK MD Caregiver [address] [place] [address] [place] [phone] DARLEEN LAWTON Next Of Kin [address] [place] [address] Insurance Providers Payer Name Policy Number Subscriber Name Relationship Medicare [id number] Aurelia Duran 16 Self [facility] [id number] Aurelia Duran 16 Self Advance Directives Directive [...] perforation Closed rib fracture Dyslipidemia History of PR (myocardial infarction) Allergic rhinitis Osteoarthritis Back pain [...] ~04/02/2014 Active Dyslipidemia Unknown Active History of PR (myocardial infarction) Unknown Active Allergic rhinitis Unknown [...] A DAY 02/19/14 Active Sodium Chloride 1 [place] NS NEEDED 02/19/14 Active Clopidogrel Bisulfate 75 [...] have difficulty breathing. During office hours, call [phone]. After hours, please call [facility] at [phone] and have the real time operator page Dr. Pretty or the covering surgeon. *In the event of an emergency, seek medical care at the nearest emergency room.* Condition at time of discharge: Good Plan of Care Discharge Date 04/11/14 4:35pm Disposition 06 HOME HEALTH SERVICE Instructions/Education Provided [facility] Congestive Heart Failure DI for Diverticulitis Prescriptions [...] [facility] Historical Hx Tetanus, Diptheria, Pertussis N UNKNOWN Historical Hx Influenza Vaccination Y JANUARY 2014 Historical Hx Tetanus Diptheria N UNKNOWN Historical Hx Tetanus, Diptheria, Pertussis N UNKNOWN Historical Hx Tetanus Toxoid Vaccination N UNKNOWN Historical Vital Signs Acute Vital Signs Vital Response Date/Time Temperature (Fahrenheit) 96.7 deg F (96.8 - 99.1) Temperature (Calculated Celsius) 35.32565 degrees C (36.0 - 37.3) Temperature Source [...] 01, 2014 9:21pm LAB TEST FORM REQUEST [id number] - Large Platelets April 08, 2014 4:37am [...] 10, 2014 5:05am 13.4 % H 0-9.0 TH-Gdw-Q-Type Natriuretic Peptide April 02, 2014 8:46am 438 [...] Has specimen been collected/obtained? Y Urine Specific [place] April 02, 2014 9:05am 1.010 L - [...] 5 DAYS Name: AURELIA DURAN Unit #: [id number] : 1930 Sex: F DISCHARGE SUMMARY Admit Date: 04/02/14 Report #: [id number] General Date Date DATE: 04/11/14 TIME: 14:18 Attending Physician Magnus Back MD Admitting Physician Magnus Back MD Consulting Physician [facility] Dr Johnson Admitting Diagnosis (1) Syncope Status: Acute (2) Diverticulitis of large intestine with perforation Status: Acute (3) Respiratory insufficiency Status: Acute Assessment & Plan: present on admission (4) Closed rib fracture Onset Date: ~ 04/02/2014 Status: Acute Assessment & Plan: [id number] rib (5) Bradycardia Status: Acute Assessment & [...] Urge incontinence Status: Chronic (22) History of PR (myocardial infarction) Status: Chronic (23) Dyslipidemia Status: [...] 84 year old female who presented to [facility] ED today, 04/02/14, via EMS for severe low back pain after falling at home. She reports that she remembers going to bed last night and then woke up this morning on the floor. She pushed her emergency button to alert EMS who responded and transported her to [facility] ED. Upon arrival to the ED she [...] ~ 04/02/2014 Status: Acute Assessment & Plan: [id number] rib (5) Bradycardia Status: Resolved Assessment & [...] (18) Diabetes Status: Chronic (19) History of PR (myocardial infarction) Status: Chronic (20) Dyslipidemia Status: Chronic DVT Prophylaxis: SCD'S GI Prophylaxis: Protonix Code Status Full Code Home Meds Active Scripts Polyethylene Glycol 3350 17 Gm Powd.pack1 Packet PO DAILY 30 Days Prov:OSCAR MCCORMICK DO 04/11/14 Ciprofloxacin HCl (Cipro)500 Mg Iwhsip273 Mg PO Q12HR 10 Days Prov:OSCAR MCCORMICK DO 04/11/14 Hydrocodone/Acetaminophen (Hydrocodon-Acetaminophen 5-325)1 Tab Tablet1 Tab PO Q4H PRN (PAIN) #30 TAB Prov:OSCAR MCCORMICK DO 04/11/14 Metronidazole (Flagyl)500 Mg Rjzzcu181 Mg PO Q12HR 10 Days Prov:OSCAR MCCORMICK DO 04/11/14 Clopidogrel Bisulfate (Plavix)75 Mg Tcnqpz71 Mg PO DAILY #30 Ref 11 Prov:LEVAR DE SANTIAGO MD 02/19/14 Potassium Chloride 20 Meq Tablet.er20 Meq PO BIDWM #0 TAB Take 1 tablet, by mouth, two times a day with meals. Prov:DASHA DE SANTIAGO MD 02/12/14 Enalapril Maleate 10 Mg Tablet1 Tab PO BID #60 TAB Prov:OSCAR MCCORMICK DO 01/03/14 Reported Medications Sodium Chloride (Saline Nasal [place])30 Ml Spray1 [place] NS PRN 02/19/14 Guaifenesin 400 Mg Tablet1 [...] Mg PO ACB 10/13/13 Gabapentin 300 Mg Fmmrqlb326 Mg PO BID 10/13/13 Furosemide (Lasix)40 Mg Xzuoig89 Mg PO DAILY RESTART ON FEB 14. 10/13/13 Loratadine 10 Mg Gsvdeu35 Mg PO DAILY 08/05/13 Fish Oil/[place]-3 Fatty Acids (Fish Oil 1,000 Mg Softgel)1 Cap Capsule1 Cap PO BID 08/05/13 Calcium Carbonate (Calcium 500)1 Tab Tablet1 Tab PO BID 08/05/13 Antiox#10/Om3/Dha/Epa/Lut/Zeax (I-Caps With Lutein-[place] 3 Sfg)1 Each Capsule1 Each PO DAILY 08/05/13 Aspirin 81 Mg Vppqjg00 Mg PO DAILY 08/05/13 Red Yeast Rice 600 Mg Tablet1,200 Mg PO BID 08/05/13 Magnesium Oxide (Magnesium)250 Mg Hwzqkh777 Mg PO DAILY 08/05/13 Discharge Disposition stable [...] ANGIO completed 02/12/14 DASHA DE SANTIAGO MD [id number] ITEM OR SERVICE completed 02/12/14723106"INJECTION, DIPHENHYDRAMINE HCL, UP TO 50 MG" completed 02/12/14"INJECTION, HEPARIN SODIUM, PER 1000 UNITS" completed 02/12/14"INJECTION, HEPARIN SODIUM, PER 1000 UNITS" completed 02/12/14"INJECTION, MIDAZOLAM HYDROCHLORIDE, PER 1 MG" completed 02/12/14"INJECTION, METHYLPREDNISOLONE SODIUM SUCCINATE, UP TO completed "INJECTION, FENTANYL CITRATE, 0.1 MG" completed 02/12/14956509JXSJBLBXBQMR DRUGS completed 02/12/14"INFUSION, NORMAL SALINE SOLUTION , 1000 CC" completed 02/12/14"LOW OSMOLAR CONTRAST MATERIAL, 300-399 MG/ML IODINE C completed ROUTINE VENIPUNCTURE completed 02/19/14 METABOLIC PANEL TOTAL CA completed 02/19/14 BL SMEAR W/DIFF WBC COUNT completed 02/19/14 COMPLETE CBC AUTOMATED completed 02/19/14 [id number] ITEM OR SERVICE completed 02/19/14 [id number] ITEM OR SERVICE completed 02/19/14 [id number] ITEM OR SERVICE completed 02/19/14 [id number] ITEM OR SERVICE completed 02/19/14969332"CLOSURE DEVICE, VASCULAR (IMPLANTABLE/INSERTABLE)" completed 02/19/14529277XTZFI WIRE completed 02/19/14"STENT, COATED/COVERED, WITH DELIVERY SYSTEM" completed 02/19/14"CATHETER, GUIDING (MAY INCLUDE INFUSION/PERFUSION CAP completed [id number] THAN PEEL-AWAY completed 02/19/14 completed 02/19/14 LEVAR DE SANTIAGO MD [id number]"INJECTION, HEPARIN SODIUM, PER 1000 UNITS" completed 02/19/14"INJECTION, HEPARIN SODIUM, PER 1000 UNITS" completed 02/19/14"INJECTION, MIDAZOLAM HYDROCHLORIDE, PER 1 MG" completed 02/19/14"INJECTION, FENTANYL CITRATE, 0.1 MG" completed 02/19/14"INFUSION, NORMAL SALINE SOLUTION , 1000 CC" completed 02/19/14"LOW OSMOLAR CONTRAST MATERIAL, 300-399 MG/ML IODINE C completed Encounters Encounter Location Date/Time Discharged Inpatient [facility] 04/02/14 8:47am Departed Clinic [facility] 02/19/14 5:57am Departed Clinic [facility] 02/12/14 8:06am Registered Clinic [facility] 01/29/14 9:54am Discharged Inpatient [facility] 01/10/14 9:17am Recent Diagnosis Diabetes Urge incontinence History of cirrhosis Bradycardia Diverticulitis of large intestine with perforation Closed rib fracture Dyslipidemia History of PR (myocardial infarction) Allergic rhinitis Osteoarthritis Back pain Respiratory insufficiency Syncope Injury of jaw Low back pain Diverticulitis of large intestine with perforation Fall
--- OUTSIDE RECORDS SUMMARY | 2016-08-19 09:08 | XMS REPORT | Continuity of Care Document ---
Author Author [facility] Organization [facility] Address Unknown Phone Unavailable Support Name Relationship Address Phone MARIA DFAINA Jania SMITH Caregiver [address] [place] [address] Unavailable EDUARD CLARK MD Caregiver [address] [place] [address] Unavailable DARLEEN LAWTON Next Of Kin [address] [place] [id number] Insurance Providers Guarantor RogerAurelia Address [address] [facility] [address] [place] [address] Email [email or web address] Payer [facility] State Plan Policy Number [id number] Subscriber's Name Aurelia Duran Relationship 18 Self Effective Date 16 Expiration Date 16 Payer Medicare Policy Number [id number] Subscriber's Name Aurelia Duran Relationship 18 Self Effective Date 93 Advance Directives Directive Response Recorded Date/Time Advanced Directives Type Living Will 10/13/13 1:33pm Chief Complaint and Reason for Visit Chief Complaint Toothache Reason for Visit [id number] Problems Active Problems Medical Problem Onset Date [...] Headache, chronic daily Unknown Acute History of WI (myocardial infarction) Unknown Resolved History of cirrhosis [...] Date Bradycardia Unknown Hand fracture, right Unknown Pain, dental Unknown UTI (urinary tract infection) Unknown Medications Current Home Medications Medication Dose Units Route Directions Days Qty Instructions Start Date Acetaminophen 500 Mg Tablet 1,000 Mg Oral Every 4-6 Hours as needed for Pain 07/09/16 Albuterol Sulfate (Proair Hfa 90 Mcg/Actuation) 8.5 Gm Hfa.aer.ad 2 Puff Inhalation Every 4 Hours as needed for Wheezing 01/08/14 Budesonide/Formoterol Fumarate (Symbicort 160-4.5 Mcg Inhaler) 10.2 Gm Hfa.aer.ad 2 Puff Inhalation Twice A Day 07/09/16 Calcium Carbonate/Vitamin D3 (Calcium + Vitamin D Tablet) 1 Each Tablet 1 Tab Oral Daily 11/23/14 Clindamycin Hcl 150 Mg Capsule 2 Cap Oral Q6h/0300,0900,1500,2100 10 Days 80 Capsule TAKE WITH A FULL GLASS OF WATER TO AVOID ESOPHAGEAL IRRITATION. 07/31/16 Clopidogrel Bisulfate (Clopidogrel) 75 Mg Tablet 75 Mg Oral Daily 07/09/16 Diltiazem Hcl (Diltiazem 24HR Cd) 120 Mg Cap.er.24h 120 Mg Oral Daily 07/31/16 Donepezil Hcl 10 Mg Tablet 10 Mg Oral Bedtime 07/09/16 Enalapril Maleate 10 Mg Tablet 10 Mg Oral Twice A Day 07/09/16 Gabapentin 600 Mg Tablet 600 Mg Oral Twice A Day 07/09/16 Guaifenesin (Guaifenesin Er) 600 Mg Tab.er.12h 600 Mg Oral Every 12 Hours as needed for Congestion 07/09/16 Guaifenesin/Dextromethorphan (Adult Cough Formula Dm Max Liq) 236 Ml Liquid 10 Ml Oral Every 4 Hours as needed for Prn Orders 07/31/16 Latanoprost 2.5 Ml Drops 1 Drop Both Eyes Every Evening 01/08/14 Loratadine 10 Mg Tablet 10 Mg Oral Before Breakfast 07/31/16 Metoprolol Tartrate 25 Mg Tablet 25 Mg Oral Twice A Day 07/09/16 Omeprazole (Prilosec) 40 Mg Capsule.dr 20 Mg Oral Before Breakfast 10/13/13 Tramadol Hcl 50 Mg Tablet 25 Mg Oral Bedtime as needed for Pain 30 07/16/16 Past Home Medications Medication Directions Ordered Status Flaxseed (Flaxseed Oil) 1,000 Mg Capsule, 1000 Mg Oral Daily 08/05/13 Discontinued Furosemide (Lasix) 40 Mg Tablet, 40 Mg Oral Daily 10/13/13 Discontinued Hydrocodone Bit/Acetaminophen ([place] 5/325 Tablet) 1 Tab Tablet, 1-2 Tab [...] Problem Response Recorded Date/Time Onset Date Status Hx Substance Use No 07/31/2016 5:10pm Not Applicable Not Applicable Hx Alcohol Use No 07/31/2016 5:10pm Not Applicable Not Applicable Has the pt used tobacco in the last 12 months No 07/09/2016 3:44pm Not Applicable Not Applicable Tobacco Usage none 11/25/2014 9:27am Not Applicable Not Applicable Query Response Start Date Stop Date Smoking Status Unknown if ever smoked Hospital Discharge Instructions No hospital discharge instructions. Plan of Care Discharge Date 07/31/16 6:53pm Disposition 01 DISCHARGED HOME, SELF-CARE Condition at Discharge Improved Instructions/Education Provided ED Dental Follow-up Dental Caries (ED) Toothache (ED) Prescriptions See Medication Section Referrals EDUARD CLARK MD Order Date: 2 Days Address: [address] [place] [address] [phone] Note: Care Plan and Goals Physician Care Plan Problem: Dental Pain Goal: Follow up with primary care provider Instructions: Take medications and follow care plan as discussed/written Functional Status No functional status results. Allergies, Adverse Reactions, Alerts Allergen Type Severity Reaction Status Last Updated iodine Allergy Unknown Active 07/31/16 Penicillin Allergy Unknown Active 07/31/16 Cephalexin Allergy Intermediate Active 07/31/16 Gluten Adverse Reaction Intermediate diarrhea, stomach cramps Active 07/31 Milk Allergy Unknown Active 07/31/16 Immunizations Immunization Event Date Type Not Given Reason Dose Number Lot Number Skin Lifter Bacon VIS Given Pneumococcal conjugate PCV 13 07/10/16 Administered 1 [id number] Sanofi Pasteur 02/13/15 Query Response on File [...] UNKNOWN 07/09/16 12:25pm Influenza Vaccine Hx 01/16/16 07/31/16 5:10pm Pneumococcal PCV13 Vaccine Hx 01/02/14 07/31/16 4:40pm Tdap Vaccine Hx NO OPEN WOUNDS 07/09/16 12:25pm Vital Signs Acute Vital Signs Vital Response Date/Time Temperature (Fahrenheit) 97.9 deg F (96.8 - 99.1) 07/31/2016 6:53pm Temperature (Calculated Celsius) 36.00419 degrees C (36.0 - 37.3) 07/31/2016 6:53pm Pulse Rate (adult) 72 bpm (60 - 100) 07/31/2016 6:53pm Respiratory Rate 18 breaths/min (10 - 20) 07/31/2016 6:53pm O2 Sat by Pulse Oximetry 92 % (90 - 100) 07/31/2016 6:53pm Oxygen Delivery Method Room Air 07/16/2016 12:00pm Oxygen Flow Rate 2.00 L/min 07/31/2016 6:53pm Blood Pressure 172/98 mm Hg 07/31/2016 6:53pm Blood Pressure Source Automatic Cuff 07/16/2016 12:00pm Height (Feet) 5 feet 07/31/2016 4:20pm Height (Inches) 2.00 inches 07/31/2016 4:20pm Weight (Kilograms) 81.100 kg 07/31/2016 4:20pm Body Mass Index (BMI) 32.0 07/31/2016 4:20pm Results Laboratory Results Test Name Result Units [...] Neutrophils % (Manual) 65.0 % 33-66 07/11/2016 8:m 07/11/2016 9: 09am Lymphocytes % (Manual) 20.0 [...] Comment NORMAL 07/11/2016 8:34am 07/11/2016 9: 09am Phosphorus Level 3.9 MG/DL 2.5-4.5 07/14/2016 5:43am 07/14/2016 6:10am Albumin 3.1 G/DL L 3.5-5.0 07/14/2016 5:43am 07/14/2016 6:10am Magnesium Level 2.4 MG/DL H 1.6-2.3 07/15/2016 4:28am 07/15/2016 5:04am Plasma Lactate 1.6 MMOL/L 0.6-2.2 07/09/2016 6:22pm 07/09/2016 6:41pm Thyroid Stimulating Hormone (TSH) 1.60 MIU/L 0.47-4.68 07/09/2016 1: 23pm 07/09/2016 5:00pm Hemoglobin A1c 6.0 % L 6.1-7.9 07/09/2016 1:23pm 07/09/2016 4:30pm < 6.0 NON-DIABETIC RANGE 6.1-7.9 [facility] TARGET RANGE >8.0 ACTION SUGGESTED Urine Collection Type OLIVIER INDWELLING 07/11/2016 9:132016 9:24am Urine Color YELLOW YELLOW 07/11/2016 9:1307/11/2016 9:24am Urine Turbidity [place] 07/11/2016 9:13am 07/11/2016 9:24am Urine Specific [place] <=1.005 L 1.015-1.025 07/11/2016 9:132016 9:24am Urine pH 5.0 5.0-8.0 07/11/2016 9:1307/11/2016 9:24am Urine Leukocyte Esterase 3+ A NEGATIVE 07/11/2016 9:1307/11/2016 9: 24am Urine Nitrite NEGATIVE NEGATIVE 07/11/2016 9:1307/11/2016 9:24am Urine Protein NEGATIVE NEGATIVE 07/11/2016 9:1307/11/2016 9:24am Urine Glucose (UA) NEGATIVE NEGATIVE 07/11/2016 9:1307/11/2016 9: 24am Urine Ketones NEGATIVE NEGATIVE 07/11/2016 9:07/11/2016 9:24am Urine Urobilinogen 0.2 EU/DL NORMAL 07/11/2016 9:07/11/2016 9: 24am Urine Bilirubin NEGATIVE NEGATIVE 07/11/2016 9:07/11/2016 9: 24am Urine Blood 2+ A NEGATIVE 07/11/2016 9:07/11/2016 9:24am Urine WBC 50-200 /HPF H 0-5 07/11/2016 9:07/11/2016 9:33am Urine WBC Clumps FEW 07/11/2016 9:07/11/2016 9:33am Urine RBC 0-1 /HPF 0-3 07/11/2016 9:07/11/2016 9:33am Urine Squamous Epithelial Cells NONE SEEN 07/11/2016 9:2016 9:33am Urine Bacteria 4+ H NEGATIVE 07/11/2016 9:07/11/2016 9:33am Urine Amorphous Urates FEW 07/09/2016 1:29pm 07/09/2016 1:53pm Urine Culture Indicated CULT REFLEXED &SETUP 07/11/2016 9:05/2016 9:33am Glucometer 107 mg/dL 65-110 07/11/2016 6:21am 07/11/2016 6:25am Icterus Index < 2 0-7 07/21/2016 8:0907/21/2016 9:36am Turbidity < 20 0-20 07/21/2016 8:0907/21/2016 9:36am Sodium Level 147 MEQ/L H 134-144 07/21/2016 8:07/21/2016 9:36am Potassium Level 3.0 MEQ/L L 3.6-5 07/21/2016 8:07/21/2016 9:36am Chloride Level 106 MEQ/L 98-107 07/21/2016 8:07/21/2016 9:36am Carbon Dioxide Level 28 MEQ/L 22-30 07/21/2016 8:07/21/2016 9: 36am Anion Gap 13 MEQ/L 5-15 07/21/2016 8:07/21/2016 9:36am Blood Urea Nitrogen 19.0 MG/DL H 7-17 07/21/2016 8:07/21/2016 9: 36am Creatinine 1.1 MG/DL 0.7-1.2 07/21/2016 8:07/21/2016 9:36am BUN/Creatinine Ratio 17 RATIO 6-26 07/21/2016 8:07/21/2016 9:36am Glomerular Filtration Rate Calc 47 07/21/2016 8:07/21/2016 9: 36am Glucose Level 153 MG/DL H 65-110 07/21/2016 8:07/21/2016 9:36am Calculated Osmolality 287 MOSM/KG H 261-280 07/21/2016 8:2016 9:36am Calcium Level 9.0 MG/DL 8.4-10.2 07/21/2016 8:07/21/2016 9:36am Chemistry Specimen Hemolysis < 15 0-25 07/31/2016 5:09pm 07/31/2016 5 :35pm 0-25: Specimen Exhibited No Hemolysis. Troponin I 0.016 ng/ml 0-0.12 07/31/2016 5:09pm 07/31/2016 5:35pm Troponin values with a difference of 55% increase from orginal troponin value represent a true biological DELTA value. (%increase Calc=Orginal Troponin value, divided by subsequent Troponin value, multiplied by 100) Microbiology Results Procedure Source Organism/Result Collection Date/Time Result Date/Time Result Status Urine Culture Not Provided ESCHERICHIA COLI 07/09/2016 1:53pm 07/11/2016 7 :38am Final Blood Culture Peripheral/Iv Start NO GROWTH AFTER 5 DAYS 07/09/2016 3:08pm 07/14/2016 3:10pm Final Urine Culture Urine, Olivier Indwelling ESCHERICHIA COLI 07/11/2016 9:33am 07/13/2016 7:32am Final Procedures Procedure Status Date Provider(s) Routine venipuncture Completed 06/16/16 Complete cbc w/auto diff wbc Completed 06/16/16 [id number] TRIP CHARGE. Completed 06/16/16 Insrt heart pm atrial & vent Completed 07/09/16 DASHA DE SANTIAGO MD Apply forearm splint Completed 07/09/16 ANDREW MASTERSON MD INSERT PACE. DUAL RG IN CHEST SUBCU/FASCIA, OPEN Completed 07/14/16 DASHA DE SANTIAGO MD INSERTION OF PACEMAKER LEAD INTO RIGHT ATRIUM, PERC APPROACH Completed DASHA DE SANTIAGO MD INSERTION OF PACEMAKER LEAD INTO R VENTRICLE, PERC APPROACH Completed DASHA DE SANTIAGO MD IMMOBILIZATION OF RIGHT LOWER ARM USING SPLINT Completed 07/09/16 ANDERW MASTERSON MD Routine venipuncture Completed 07/21/16 Metabolic panel total ca Completed 07/21/16 [id number] TRIP CHARGE. Completed 07/21/16 Encounters Encounter Location Arrival/Admit Date Discharge/Depart Date Attending Provider Departed Emergency Room [facility] 07/31/16 4:17pm 07/31/16 6: 53pm FAINA KILLIAN DO Registered [facility] 07/21/16 3:20am EDUARD CLARK MD Discharged Inpatient [facility] 07/09/16 2:49pm 07/16/16 3:15pm ANGELES FUNK MD Registered [facility] 06/16/16 12:58am EDUARD CLARK MD Recent Diagnosis
--- OUTSIDE RECORDS SUMMARY | 2016-08-19 09:09 | XMS REPORT | Continuity of Care Document ---
Author Author [facility] Organization [facility] Address Unknown Phone Unavailable Support Name Relationship Address Phone JACE OSCAR DO Caregiver [address] [place] [address] EDUARD CLARK MD Caregiver [address] [place] [phone] DARLEEN LAWTON Next Of Kin Unknown [phone] Insurance Providers Payer Name Policy Number Subscriber Name Relationship Medicare [id number] RogerAurelia 18 Self [facility] [id number] Aurelia Duran 18 Self Advance Directives Directive [...] PO TWICE A DAY 08/05/13 Active Fish Oil/[place]-3 Fatty Acids 1 Cap PO TWICE A [...] AT 1:00PM FOR ECHOCARDIOGRAM. CHECK IN AT [facility] REGISTRATION ON 01/15/14 AT 8:30AM FOR [...] BECOMES DISLODGED OR WET Durable Medical Equipment: [employer] [phone] Notify Physician If: CALL YOUR SURGEON IF: [...] and call Dr. Camarillo with the result [phone]. Condition at time of discharge: Good Plan of Care Discharge Date 01/03/14 3:55pm Disposition 01 DISCHARGED HOME, SELF-CARE Instructions/Education Provided [facility] Congestive Heart Failure Prescriptions See Medications Section Functional Status Query Response Date Recorded Mental Status Alert October 13, 2013 4:56pm Allergies, Adverse Reactions, Alerts Allergen Type Severity Reaction Status Last Updated iodine Allergy Unknown Active 01/02/14 Penicillin Allergy Unknown Active 01/02/14 Cephalexin Allergy Intermediate Active 01/02/14 Immunizations Name Given Type Hx Influenza Vaccination No Historical Hx Pneumococcal Vaccination Y GIVEN 01/02/14 AT [facility] Historical Hx Influenza Vaccination No Historical Vital Signs Acute Vital Signs Vital Response Date/Time Temperature (Fahrenheit) 98.9 deg F (96.8 - 99.1) Temperature (Calculated Celsius) 37.38720 degrees C (36.0 - 37.3) Temperature Source [...] 02, 2014 5:13am 10.4 % H 0-9.0 WD-Grt-Y-Type Natriuretic Peptide January 02, 2014 5:13am 244 [...] REFLEXHas specimen been collected/obtained? Y Urine Specific [place] January 01, 2014 8:10pm <=1.005 L - [...] DN 4.5-11.0 Name: AURELIA DURAN Unit #: [id number] : 1930 Sex: F DISCHARGE SUMMARY Admit Date: 01/03/14 Report #: [id number] General Date Date DATE: 01/03/14 TIME: 14:50 [...] 83-year-old female who was brought to the [facility] to see Dr. Min for increasing shortness [...] TAB Prov:OSCAR BROWN DO 01/03/14 Hydrocodone Bit/Acetaminophen ([place] 5/325 Tablet)1 Tab Tablet1-2 Tab PO Q4-6H PRN (PAIN) #20 TAB Prov:SIA CARBONE 10/13/13 Reported Medications Tramadol Hcl 50 Mg Peelzq12 Mg PO PRN 10/13/13 Tolterodine Tartrate (Detrol La)4 Mg Cap.sr.24h4 Mg PO DAILY 10/13/13 Budesonide/Formoterol Fumarate (Symbicort 160-4.5 Mcg Inhaler)10.2 Gm Hfa.aer.ad10.2 Gm IH DAILY 10/13/13 Potassium Chloride 10 Meq Capsule.sa10 Meq PO BID 10/13/13 Iron Ps Cmplx/Vit B12/Fa (Poly-Iron 150 Forte Capsule)1 Udcap Capsule1 Udcap PO BID 10/13/13 Omeprazole (Prilosec)40 Mg Capsule.dr40 Mg PO ACB 10/13/13 Gabapentin 300 Mg Ifmgdyf163 Mg PO BID 10/13/13 Furosemide (Lasix)40 Mg Ovufjm99 Mg PO DAILY 10/13/13 Loratadine 10 Mg Eelybe31 Mg PO DAILY 08/05/13 Fish Oil/[place]-3 Fatty Acids (Fish Oil 1,000 Mg Softgel)1 Cap Capsule1 Cap PO BID 08/05/13 Calcium Carbonate (Calcium 500)1 Tab Tablet1 Tab PO BID 08/05/13 Antiox#10/Om3/Dha/Epa/Lut/Zeax (I-Caps With Lutein-[place] 3 Sfg)1 Each Capsule1 Each PO DAILY 08/05/13 Aspirin 81 Mg Evqmtp56 Mg PO DAILY 08/05/13 Red Yeast Rice 600 Mg Tablet1,200 Mg PO BID 08/05/13 Magnesium Oxide (Magnesium)250 Mg Pyfxtq805 Mg PO DAILY 08/05/13 Discontinued Reported Medications [...] procedures. Encounters Encounter Location Date/Time Discharged Inpatient [facility] 01/03/14 10:31am Registered Clinic [facility] 01/01/14 4:18pm Registered Clinic [facility] 11/06/13 8:54am Departed Emergency Room [facility] 10/13/13 1:28pm Recent Diagnosis CHF exacerbation A-fib Asthma with COPD CAD (coronary artery disease) Diabetes GERD (gastroesophageal reflux disease) Insomnia Urge incontinence Sleep apnea Glaucoma Depression History of cirrhosis
[2016-08-19] MEDS ORDERED: BISA10SU8 RECTALLY (09:15)
[2016-08-19] MEDS ORDERED: ONDANSETRON 4mg/2ml INJECTION IV ONE (09:15)
[2016-08-19] MEDS ORDERED: KETOROLAC 30mg/ml INJECTION IV ONE (09:15)
--- NOTE | 2016-08-19 09:15 | NUR ---
PROVIDER DR. GONG AT BEDSIDE FOR EXAM.
[2016-08-19] MEDS ORDERED: LORA0.5T2 PO (09:17)
[2016-08-19] MEDS ORDERED: MAG360OR92 PO (09:19)
[2016-08-19] MEDS ORDERED: NYST1POW8 TOP (09:21)
[2016-08-19] MEDS ORDERED: POLY255P2 PO (09:22)
--- OUTSIDE RECORDS SUMMARY | 2016-08-19 09:22 | XMS REPORT | Continuity of Care Document ---
Author Author [facility] Organization [facility] Address Unknown Phone Unavailable Care Team Providers Care Construction Supervisor Name Role Phone Yuval Hoang Primary Care Physician [phone] Source Comments Some departments are not documenting in the electronic medical record. If you do not see the information that you expected, contact Release of Information in the Health Information Management department at [phone] for further assistance in locating additional records.[facility] Active Allergies and Adverse Reactions Allergen Noted Date Severity Reactions Comments Aspartame 09/16/2010 UNKNOWN Contrast Dye Iv, Iodine 09/16/2010 RASH, ITCHING Containing Gluten 09/16/2010 SEE COMMENTS Celiac disease Keflex 09/16/2010 NAUSEA AND VOMITING Lactose 09/16/2010 NAUSEA AND VOMITING Merthiolate (Thimerosal) 09/16/2010 UNKNOWN Penicillins 09/16/2010 SEE COMMENTS Bruising from IM injection Zpwsbfh-Coh-Sui Reductase 09/16/2010 UNKNOWN Inhibitors Current Medications Prescription [...]
--- OUTSIDE RECORDS SUMMARY | 2016-08-19 09:22 | XMS REPORT | Continuity of Care Document ---
Author Author [facility] Organization [facility] Address Unknown Phone Unavailable Support Name Relationship Address Phone JES SIEGEL MD Caregiver [address] [place] [address] [place] [address] PEDRO LIU MD Caregiver [address] [place] [address] [place] [phone] JUAN CLARK MD Caregiver [address] [place] [phone] DARLEEN LAWTON Next Of Kin [address] [place] [address] Insurance Providers Payer Name Policy Number Subscriber Name Relationship Medicare [id number] Aurelia Duran 18 Self [facility] [id number] Aurelia Duran 18 Self Advance Directives Directive [...] PO TWICE A DAY 08/05/13 Active Fish Oil/[place]-3 Fatty Acids 1 Cap PO TWICE A [...] of your legs. 3.During office hours, call [phone] 4. After hours, please call [facility] at [phone], and have the flotation operator page your Surgeon IN THE EVENT [...] Hx Influenza Vaccination Y GIVEN 01/11/10 AT [facility] Historical Hx Pneumococcal Vaccination Y GIVEN 01/02/14 AT [facility] Historical Hx Tetanus, Diptheria, Pertussis N UNKNOWN Historical Hx Influenza Vaccination Y GIVEN 01/11/10 AT [facility] Historical Hx Tetanus Diptheria N UNKNOWN Historical [...] F (96.8 - 99.1) Temperature (Calculated Celsius) 35.33625 degrees C (36.0 - 37.3) Temperature Source [...] 01, 2014 9:21pm LAB TEST FORM REQUEST [id number] - Lipase January 08, 2014 12:24pm 136 [...] 12, 2014 5:29am 6.0 % N 0-9.0 YK-Zjt-H-Type Natriuretic Peptide January 08, 2014 12:24pm 133 [...] Has specimen been collected/obtained? Y Urine Specific [place] January 08, 2014 3:05pm 1.010 L - [...] 4 DAYS Name: AURELIA DURAN Unit #: [id number] : 1930 Sex: F Loc / Svc: ED DOS: 01/08/14 Signed Report #: [id number] DIAGNOSTIC IMAGING REPORT TYPE OF EXAM: CHEST, [...] procedures. Encounters Encounter Location Date/Time Discharged Inpatient [facility] 01/10/14 9:17am Discharged Inpatient [facility] 01/03/14 10:31am Registered Clinic [facility] 01/01/14 4:18pm Registered [facility] 11/06/13 8:54am Recent Diagnosis Dyspnea on exertion COPD exacerbation Chest pain on exertion Pneumonia Dyspnea on exertion Diastolic CHF, chronic Obesity (BMI 30.0-34.9) Chest pain as manifestation of blood transfusion reaction HTN (hypertension) Elevated serum creatinine Hyponatremia
--- OUTSIDE RECORDS SUMMARY | 2016-08-19 09:22 | XMS REPORT | Continuity of Care Document ---
Author Author [facility] Organization [facility] Address Unknown Phone Unavailable Allergies Medications [...] Status Pt. Type Provider Facility Loc./Unit Complaint [id number] 05/08/2012 05:57:00 2012 10:55:00 DIS Outpatient Jose Hightower MD [facility]
[2016-08-19] MEDS ORDERED: DEXT15DR5 OP (09:23)
--- OUTSIDE RECORDS SUMMARY | 2016-08-19 09:23 | XMS REPORT | Continuity of Care Document ---
Author Author [facility] Organization [facility] Address Unknown Phone Unavailable Support Name Relationship Address Phone LEVAR DE SANTIAGO MD Caregiver [address] [phone] EDUARD CLARK MD Caregiver [address] [place], [place] [phone] LAWTONDARLEEN Next Of Kin [address] [place], [place] [phone] Insurance Providers Payer Name Policy Number Subscriber Name Relationship Medicare [id number] Aurelia Duran 18 Self [facility] [id number] Aurelia Duran 18 Self Advance Directives Directive Response Recorded Date/Time Advanced Directives Type Living Will 10/13/13 1:33pm Ordered Resuscitation Status Full Code, unverified 02/19/14 3:20am Chief Complaint and Reason for Visit Chief Complaint Chest Pain Reason for Visit [id number] Dyspnea on exertion Chest pain on exertion [...] PO TWICE A DAY 08/05/13 Active Fish Oil/[place]-3 Fatty Acids 1 Cap PO TWICE A [...] A DAY 02/19/14 Active Sodium Chloride 1 Mcdavid NS NEEDED 02/19/14 Active Clopidogrel Bisulfate 75 [...] 01/12/14 6:00pm Disposition 02 TO [facility] Condition at Discharge Stable Instructions/Education Provided [...] Hx Pneumococcal Vaccination Y GIVEN 01/02/14 AT [facility] Historical Hx Tetanus, Diptheria, Pertussis N UNKNOWN Historical Hx Influenza Vaccination Y JANUARY 2014 Historical Hx Tetanus Diptheria N UNKNOWN Historical Hx Tetanus, Diptheria, Pertussis N UNKNOWN Historical Hx Tetanus Toxoid Vaccination N UNKNOWN Historical Vital Signs Acute Vital Signs Vital Response Date/Time Temperature (Fahrenheit) 96.7 deg F (96.8 - 99.1) Temperature (Calculated Celsius) 35.22774 degrees C (36.0 - 37.3) Temperature Source [...] 01, 2014 9:21pm LAB TEST FORM REQUEST [id number] - Lipase January 08, 2014 12:24pm 136 [...] COMMENT NURSE WILL CALL WHEN PT HERE MU-Iit-L-Type Natriuretic Peptide January 08, 2014 12:24pm 133 [...] Has specimen been collected/obtained? Y Urine Specific [place] January 08, 2014 3:05pm 1.010 L - [...] 5 DAYS Name: AURELIA DURAN Unit #: [id number] : 1930 Sex: F DISCHARGE SUMMARY Admit Date: 01/10/14 Report #: [id number] General Date Date DATE: 01/12/14 TIME: 14:46 [...] old woman who was recently admitted to [facility] for CHF exacerbation. She was discharged on [...] home from the hospital. She presented to [facility] ED for evaluation. There, lab and imaging [...] CM did get them set up with [facility]. She was instructed to f/u with her [...] Mg PO ACB 10/13/13 Gabapentin 300 Mg Owuelce272 Mg PO BID 10/13/13 Furosemide (Lasix)40 Mg Usjglb11 Mg PO DAILY 10/13/13 Loratadine 10 Mg Jawbos96 Mg PO DAILY 08/05/13 Fish Oil/[place]-3 Fatty Acids (Fish Oil 1,000 Mg Softgel)1 Cap Capsule1 Cap PO BID 08/05/13 Calcium Carbonate (Calcium 500)1 Tab Tablet1 Tab PO BID 08/05/13 Antiox#10/Om3/Dha/Epa/Lut/Zeax (I-Caps With Lutein-[place] 3 Sfg)1 Each Capsule1 Each PO DAILY 08/05/13 Aspirin 81 Mg Cfdzzn02 Mg PO DAILY 08/05/13 Red Yeast Rice 600 Mg Tablet1,200 Mg PO BID 08/05/13 Magnesium Oxide (Magnesium)250 Mg Adjsln425 Mg PO DAILY 08/05/13 Discharge Disposition stable Copies To 1: EDUARD CLARK MD, CARRIE DO Jan 12, 2014 14:46 Procedures Procedure Status Date Provider(s) ROUTINE VENIPUNCTURE completed 02/12/14 METABOLIC PANEL TOTAL CA completed 02/12/14 COMPLETE CBC W/AUTO DIFF WBC completed 02/12/14 ELECTROCARDIOGRAM TRACING completed 02/12/14 L HRT ARTERY/VENTRICLE ANGIO completed 02/12/14 DASHA DE SANTIAGO MD [id number] ITEM OR SERVICE completed 02/12/14718061"INJECTION, DIPHENHYDRAMINE HCL, UP TO 50 MG" completed 02/12/14195368"INJECTION, HEPARIN SODIUM, PER 1000 UNITS" completed 02/12/14581095"INJECTION, HEPARIN SODIUM, PER 1000 UNITS" completed 02/12/14648227"INJECTION, MIDAZOLAM HYDROCHLORIDE, PER 1 MG" completed 02/12/14010702"INJECTION, METHYLPREDNISOLONE SODIUM SUCCINATE, UP TO completed 003"INJECTION, FENTANYL CITRATE, 0.1 MG" completed 02/12/14299419XXIEPMZLTZJJ DRUGS completed 02/12/14844202"INFUSION, NORMAL SALINE SOLUTION , 1000 CC" completed 02/12/14246623"LOW OSMOLAR CONTRAST MATERIAL, 300-399 MG/ML IODINE C completed Encounters Encounter Location Date/Time Departed [facility] 02/19/14 5:57am Departed [facility] 02/12/14 8:06am Registered Clinic [facility] 01/29/14 9:54am Discharged Inpatient [facility] 01/10/14 9:17am Discharged Inpatient [facility] 01/03/14 10:31am Registered Clinic [facility] 01/01/14 4:18pm
--- OUTSIDE RECORDS SUMMARY | 2016-08-19 09:23 | XMS REPORT | Continuity of Care Document ---
Author Author [facility] Organization [facility] Address Unknown Phone Unavailable Support Name Relationship Address Phone EDUARD CLARK MD Caregiver [address] [place] [phone] SONDRA BERGERON MD Caregiver [address] [place] [address] DARLEEN LAWTON Next Of Kin Unknown [phone] Insurance Providers Payer Name Policy Number Subscriber Name Relationship Medicare [id number] Aurelia Duran 16 Self [facility] [id number] [place] 18 Self Advance Directives Directive Response Recorded [...] PO TWICE A DAY 08/05/13 Active Fish Oil/[place]-3 Fatty Acids 1 Cap PO TWICE A [...] F (96.8 - 99.1) Temperature (Calculated Celsius) 36.87517 degrees C (36.0 - 37.3) Pulse Rate [...] Has specimen been collected/obtained? Y Urine Specific [place] August 05, 2013 1:55pm <=1.005 L - [...] Encounters Encounter Location Date/Time Departed Emergency Room [facility] 10/13/13 1:28pm Departed Emergency Room [facility] 08/05/13 12:39pm Recent Diagnosis
--- OUTSIDE RECORDS SUMMARY | 2016-08-19 09:23 | XMS REPORT | Continuity of Care Document ---
Author Author [facility] Organization [facility] Address Unknown Phone Unavailable Support Name Relationship Address Phone DASHA DE SANTIAGO MD Caregiver [address] [place] [phone] EDUARD CLARK MD Caregiver [address] [place] [phone] DARLEEN LAWTON Next Of Kin [address] [place] [phone] Insurance Providers Payer Name Policy Number Subscriber Name Relationship Medicare [id number] Aurelia Duran 16 Self [facility] [id number] Aurelia Duran 16 Self Advance Directives Directive Response Recorded Date/Time Advanced Directives Type Living Will 10/13/13 1:33pm Ordered Resuscitation Status Full Code, unverified 02/12/14 8:44am Resuscitation Documents on File No 02/12/14 8:30am Chief Complaint and Reason for Visit Chief Complaint Chest Pain Reason for Visit [id number] Dyspnea on exertion Chest pain on exertion [...] PO TWICE A DAY 08/05/13 Active Fish Oil/[place]-3 Fatty Acids 1 Cap PO TWICE A [...] Discharge Date 01/12/14 6:00pm Disposition 02 TO [facility] Condition at Discharge Stable Instructions/Education Provided [...] Hx Pneumococcal Vaccination Y GIVEN 01/02/14 AT [facility] Historical Hx Tetanus, Diptheria, Pertussis N UNKNOWN Historical Hx Influenza Vaccination Y PT UNSURE BELIEVES LAST ONE PASTIN 2012 Historical Hx Tetanus Diptheria N UNKNOWN Historical Hx Tetanus, Diptheria, Pertussis N UNKNOWN Historical Hx Tetanus Toxoid Vaccination N UNKNOWN Historical Vital Signs Acute Vital Signs Vital Response Date/Time Temperature (Fahrenheit) 96.3 deg F (96.8 - 99.1) Temperature (Calculated Celsius) 35.26989 degrees C (36.0 - 37.3) Temperature Source [...] 01, 2014 9:21pm LAB TEST FORM REQUEST [id number] - Lipase January 08, 2014 12:24pm 136 [...] COMMENT NURSE WILL CALL WHEN PT HERE NY-Ysy-J-Type Natriuretic Peptide January 08, 2014 12:24pm 133 [...] Has specimen been collected/obtained? Y Urine Specific [place] January 08, 2014 3:05pm 1.010 L - [...] 5 DAYS Name: AURELIA DURAN Unit #: [id number] : 1930 Sex: F DISCHARGE SUMMARY Admit Date: 01/10/14 Report #: [id number] General Date Date DATE: 01/12/14 TIME: 14:46 [...] old woman who was recently admitted to [facility] for CHF exacerbation. She was discharged on [...] home from the hospital. She presented to [facility] ED for evaluation. There, lab and imaging [...] did get them set up with [facility]. She was instructed to f/u with [...] Mg PO ACB 10/13/13 Gabapentin 300 Mg Zfaxaas086 Mg PO BID 10/13/13 Furosemide (Lasix)40 Mg Ulqzjk76 Mg PO DAILY 10/13/13 Loratadine 10 Mg Txyprc60 Mg PO DAILY 08/05/13 Fish Oil/[place]-3 Fatty Acids (Fish Oil 1,000 Mg Softgel)1 Cap Capsule1 Cap PO BID 08/05/13 Calcium Carbonate (Calcium 500)1 Tab Tablet1 Tab PO BID 08/05/13 Antiox#10/Om3/Dha/Epa/Lut/Zeax (I-Caps With Lutein-[place] 3 Sfg)1 Each Capsule1 Each PO DAILY 08/05/13 Aspirin 81 Mg Mlhpou47 Mg PO DAILY 08/05/13 Red Yeast Rice 600 Mg Tablet1,200 Mg PO BID 08/05/13 Magnesium Oxide (Magnesium)250 Mg Cszdhg941 Mg PO DAILY 08/05/13 Discharge Disposition stable Copies To 1: EDUARD CLARK MD, CARRIE DO Jan 12, 2014 14:46 Procedures No known history of procedures. Encounters Encounter Location Date/Time Departed [facility] 02/12/14 8:06am Registered [facility] 01/29/14 9:54am Discharged Inpatient [facility] 01/10/14 9:17am Discharged Inpatient [facility] 01/03/14 10:31am Registered [facility] 01/01/14 4:18pm
[2016-08-19] MEDS ORDERED: TRAM50TA4 PO (09:24)
--- OUTSIDE RECORDS SUMMARY | 2016-08-19 09:24 | XMS REPORT | Continuity of Care Document ---
Author Author [facility] Organization [facility] Address Unknown Phone Unavailable Support Name Relationship Address Phone JACE OSCAR DO Caregiver [address] [place] [address] EDUARD CLARK MD Caregiver [address] [place] [phone] DARLEEN LAWTON Next Of Kin Unknown [phone] Insurance Providers Payer Name Policy Number Subscriber Name Relationship Medicare [id number] RogerAurelia 18 Self [facility] [id number] Aurelia Duran 16 Self Advance Directives Directive [...] PO TWICE A DAY 08/05/13 Active Fish Oil/Stephen-3 Fatty Acids 1 Cap PO TWICE A [...] AT 1:00PM FOR ECHOCARDIOGRAM. CHECK IN AT [facility] REGISTRATION ON 01/15/14 AT 8:30AM FOR [...] BECOMES DISLODGED OR WET Durable Medical Equipment: Take the Interview-Spinal Simplicity [phone] Notify Physician If: CALL YOUR SURGEON IF: [...] and call Dr. Camarillo with the result [phone]. Condition at time of discharge: Good Plan of Care Discharge Date 01/03/14 3:55pm Disposition 01 DISCHARGED HOME, SELF-CARE Instructions/Education Provided [facility] Congestive Heart Failure Prescriptions See Medications Section Functional Status Query Response Date Recorded Mental Status Alert October 13, 2013 4:56pm Allergies, Adverse Reactions, Alerts Allergen Type Severity Reaction Status Last Updated iodine Allergy Unknown Active 01/02/14 Penicillin Allergy Unknown Active 01/02/14 Cephalexin Allergy Intermediate Active 01/02/14 Immunizations Name Given Type Hx Influenza Vaccination No Historical Hx Pneumococcal Vaccination Y GIVEN 01/02/14 AT [facility] Historical Hx Influenza Vaccination No Historical Vital Signs Acute Vital Signs Vital Response Date/Time Temperature (Fahrenheit) 98.9 deg F (96.8 - 99.1) Temperature (Calculated Celsius) 37.62828 degrees C (36.0 - 37.3) Temperature Source [...] 02, 2014 5:13am 10.4 % H 0-9.0 DC-Aah-R-Type Natriuretic Peptide January 02, 2014 5:13am 244 [...] REFLEXHas specimen been collected/obtained? Y Urine Specific [place] January 01, 2014 8:10pm <=1.005 L - [...] DN 4.5-11.0 Name: AURELIA DURAN Unit #: [id number] : 1930 Sex: F DISCHARGE SUMMARY Admit Date: 01/03/14 Report #: [id number] General Date Date DATE: 01/03/14 TIME: 14:50 [...] 83-year-old female who was brought to the [facility] to see Dr. Min for increasing [...] TAB Prov:OSCAR BROWN DO 01/03/14 Hydrocodone Bit/Acetaminophen (Blomkest 5/325 Tablet)1 Tab Tablet1-2 Tab PO Q4-6H PRN (PAIN) #20 TAB Prov:SIA CARBONE 10/13/13 Reported Medications Tramadol Hcl 50 Mg Hoijtc05 Mg PO PRN 10/13/13 Tolterodine Tartrate (Detrol La)4 Mg Cap.sr.24h4 Mg PO DAILY 10/13/13 Budesonide/Formoterol Fumarate (Symbicort 160-4.5 Mcg Inhaler)10.2 Gm Hfa.aer.ad10.2 Gm IH DAILY 10/13/13 Potassium Chloride 10 Meq Capsule.sa10 Meq PO BID 10/13/13 Iron Ps Cmplx/Vit B12/Fa (Poly-Iron 150 Forte Capsule)1 Udcap Capsule1 Udcap PO BID 10/13/13 Omeprazole (Prilosec)40 Mg Capsule.dr40 Mg PO ACB 10/13/13 Gabapentin 300 Mg Bvjekvh155 Mg PO BID 10/13/13 Furosemide (Lasix)40 Mg Yoefyc16 Mg PO DAILY 10/13/13 Loratadine 10 Mg Fhbplt43 Mg PO DAILY 08/05/13 Fish Oil/Stephen-3 Fatty Acids (Fish Oil 1,000 Mg Softgel)1 Cap Capsule1 Cap PO BID 08/05/13 Calcium Carbonate (Calcium 500)1 Tab Tablet1 Tab PO BID 08/05/13 Antiox#10/Om3/Dha/Epa/Lut/Zeax (I-Caps With Lutein-Stephen 3 Sfg)1 Each Capsule1 Each PO DAILY 08/05/13 Aspirin 81 Mg Zfuvsq70 Mg PO DAILY 08/05/13 Red Yeast Rice 600 Mg Tablet1,200 Mg PO BID 08/05/13 Magnesium Oxide (Magnesium)250 Mg Ubcuxy691 Mg PO DAILY 08/05/13 Discontinued Reported Medications [...] procedures. Encounters Encounter Location Date/Time Discharged Inpatient [facility] 01/03/14 10:31am Registered Clinic [facility] 01/01/14 4:18pm Registered Clinic [facility] 11/06/13 8:54am Departed Emergency Room [facility] 10/13/13 1:28pm Recent Diagnosis CHF exacerbation A-fib Asthma with COPD CAD (coronary artery disease) Diabetes GERD (gastroesophageal reflux disease) Insomnia Urge incontinence Sleep apnea Glaucoma Depression History of cirrhosis
--- OUTSIDE RECORDS SUMMARY | 2016-08-19 09:24 | XMS REPORT | Continuity of Care Document ---
Author Author [facility] Organization [facility] Address Unknown Phone Unavailable Support Name Relationship Address Phone MAGNUS BACK MD Caregiver [address] [place] [address] [address] [place] [phone] ОЛЬГА JOHNSON FACS, MD Caregiver [address] [place] [address] [address] [place] [phone] PEDRO LIU MD Caregiver [address] [place] [address] [place] [phone] EDUARD CLARK MD Caregiver [address] [place] [address] [place] [phone] DARLEEN LAWTON Next Of Kin [address] [place] [address] Insurance Providers Payer Name Policy Number Subscriber Name Relationship Medicare [id number] Aurelia Duran 16 Self [facility] [id number] Aurelia Duran 16 Self Advance Directives Directive [...] perforation Closed rib fracture Dyslipidemia History of FL (myocardial infarction) Allergic rhinitis Osteoarthritis Back pain [...] ~04/02/2014 Active Dyslipidemia Unknown Active History of FL (myocardial infarction) Unknown Active Allergic rhinitis Unknown [...] PO TWICE A DAY 08/05/13 Active Fish Oil/[place]-3 Fatty Acids 1 Cap PO TWICE A [...] A DAY 02/19/14 Active Sodium Chloride 1 [place] NS NEEDED 02/19/14 Active Clopidogrel Bisulfate 75 [...] have difficulty breathing. During office hours, call [phone]. After hours, please call [facility] at [phone] and have the block bolter mule operator page Dr. Pretty or the covering [...] F (96.8 - 99.1) Temperature (Calculated Celsius) 35.47846 degrees C (36.0 - 37.3) Temperature Source [...] 01, 2014 9:21pm LAB TEST FORM REQUEST [id number] - Large Platelets April 08, 2014 4:37am [...] 10, 2014 5:05am 13.4 % H 0-9.0 ZC-Rgb-L-Type Natriuretic Peptide April 02, 2014 8:46am 438 [...] Has specimen been collected/obtained? Y Urine Specific [place] April 02, 2014 9:05am 1.010 L - [...] 5 DAYS Name: AURELIA DURAN Unit #: [id number] : 1930 Sex: F DISCHARGE SUMMARY Admit Date: 04/02/14 Report #: [id number] General Date Date DATE: 04/11/14 TIME: 14:18 Attending Physician Magnus Back MD Admitting Physician Magnus Back MD Consulting Physician [facility] Dr Johnson Admitting Diagnosis (1) Syncope Status: Acute (2) Diverticulitis of large intestine with perforation Status: Acute (3) Respiratory insufficiency Status: Acute Assessment & Plan: present on admission (4) Closed rib fracture Onset Date: ~ 04/02/2014 Status: Acute Assessment & Plan: [id number] rib (5) Bradycardia Status: Acute Assessment & [...] Urge incontinence Status: Chronic (22) History of FL (myocardial infarction) Status: Chronic (23) Dyslipidemia Status: [...] ~ 04/02/2014 Status: Acute Assessment & Plan: [id number] rib (5) Bradycardia Status: Resolved Assessment & [...] (18) Diabetes Status: Chronic (19) History of FL (myocardial infarction) Status: Chronic (20) Dyslipidemia Status: Chronic DVT Prophylaxis: SCD'S GI Prophylaxis: Protonix Code Status Full Code Home Meds Active Scripts Polyethylene Glycol 3350 17 Gm Powd.pack1 Packet PO DAILY 30 Days Prov:OSCAR MCCORMICK DO 04/11/14 Ciprofloxacin HCl (Cipro)500 Mg Tghhmc559 Mg PO Q12HR 10 Days Prov:OSCAR MCCORMICK DO 04/11/14 Hydrocodone/Acetaminophen (Hydrocodon-Acetaminophen 5-325)1 Tab Tablet1 Tab PO Q4H PRN (PAIN) #30 TAB Prov:OSCAR MCCORMICK DO 04/11/14 Metronidazole (Flagyl)500 Mg Quwtdc774 Mg PO Q12HR 10 Days Prov:OSCAR MCCORMICK DO 04/11/14 Clopidogrel Bisulfate (Plavix)75 Mg Ikczmu79 Mg PO DAILY #30 Ref 11 Prov:LEVAR DE SANTIAGO MD 02/19/14 Potassium Chloride 20 Meq Tablet.er20 Meq PO BIDWM #0 TAB Take 1 tablet, by mouth, two times a day with meals. Prov:DASHA DE SANTIAGO MD 02/12/14 Enalapril Maleate 10 Mg Tablet1 Tab PO BID #60 TAB Prov:OSCAR MCCORMICK DO 01/03/14 Reported Medications Sodium Chloride (Saline Nasal [place])30 Ml Spray1 [place] NS PRN 02/19/14 Guaifenesin 400 Mg Tablet1 [...] Mg PO ACB 10/13/13 Gabapentin 300 Mg Oawizyg793 Mg PO BID 10/13/13 Furosemide (Lasix)40 Mg Zzwowr47 Mg PO DAILY RESTART ON FEB 14. 10/13/13 Loratadine 10 Mg Tmxtwk02 Mg PO DAILY 08/05/13 Fish Oil/[place]-3 Fatty Acids (Fish Oil 1,000 Mg Softgel)1 Cap Capsule1 Cap PO BID 08/05/13 Calcium Carbonate (Calcium 500)1 Tab Tablet1 Tab PO BID 08/05/13 Antiox#10/Om3/Dha/Epa/Lut/Zeax (I-Caps With Lutein-[place] 3 Sfg)1 Each Capsule1 Each PO DAILY 08/05/13 Aspirin 81 Mg Cgabeo72 Mg PO DAILY 08/05/13 Red Yeast Rice 600 Mg Tablet1,200 Mg PO BID 08/05/13 Magnesium Oxide (Magnesium)250 Mg Lllusi639 Mg PO DAILY 08/05/13 Discharge Disposition stable [...] ANGIO completed 02/12/14 DASHA DE SANTIAGO MD [id number] ITEM OR SERVICE completed 02/12/14033811"INJECTION, DIPHENHYDRAMINE HCL, UP TO 50 MG" completed 02/12/14"INJECTION, HEPARIN SODIUM, PER 1000 UNITS" completed 02/12/14"INJECTION, HEPARIN SODIUM, PER 1000 UNITS" completed 02/12/14"INJECTION, MIDAZOLAM HYDROCHLORIDE, PER 1 MG" completed 02/12/14"INJECTION, METHYLPREDNISOLONE SODIUM SUCCINATE, UP TO completed "INJECTION, FENTANYL CITRATE, 0.1 MG" completed 02/12/14377470LBVBKQMOEKTM DRUGS completed 02/12/14"INFUSION, NORMAL SALINE SOLUTION , 1000 CC" completed 02/12/14"LOW OSMOLAR CONTRAST MATERIAL, 300-399 MG/ML IODINE C completed ROUTINE VENIPUNCTURE completed 02/19/14 METABOLIC PANEL TOTAL CA completed 02/19/14 BL SMEAR W/DIFF WBC COUNT completed 02/19/14 COMPLETE CBC AUTOMATED completed 02/19/14 [id number] ITEM OR SERVICE completed 02/19/14 [id number] ITEM OR SERVICE completed 02/19/14 [id number] ITEM OR SERVICE completed 02/19/14 [id number] ITEM OR SERVICE completed 02/19/14228810"CLOSURE DEVICE, VASCULAR (IMPLANTABLE/INSERTABLE)" completed 02/19/14804079FLNBG WIRE completed 02/19/14"STENT, COATED/COVERED, WITH DELIVERY SYSTEM" completed 02/19/14"CATHETER, GUIDING (MAY INCLUDE INFUSION/PERFUSION CAP completed [id number] THAN PEEL-AWAY completed 02/19/14 completed 02/19/14 LEVAR DE SANTIAGO MD [id number]"INJECTION, HEPARIN SODIUM, PER 1000 UNITS" completed 02/19/14"INJECTION, [...] perforation Closed rib fracture Dyslipidemia History of FL (myocardial infarction) Allergic rhinitis Osteoarthritis Back pain Respiratory insufficiency Syncope Injury of jaw Low back pain Diverticulitis of large intestine with perforation Fall
[2016-08-19] MEDS ORDERED: LEVO500T88 PO (09:27)
--- NOTE | 2016-08-19 09:43 | NUR ---
CT PT TO CT BY CART ACCOMP BY THIS RN AT THIS TIME.
[2016-08-19 09:54] LABS: BASOPHILS # (AUTO) 0.1 T/MM3 (0-0.2); BASOPHILS % (AUTO) 0.8 % (0-2); EOSINOPHILS # (AUTO) 0.1 T/MM3 (0-0.5); EOSINOPHILS % (AUTO) 0.7 % (0-4); HCT - HEMATOCRIT 38.3 % (36-46); HGB - HEMOGLOBIN 12.1 GM/DL (12-16); IMMATURE GRANULOCYTE # (AUTO) 0.03 T/MM3 (0.00-0.03); IMMATURE GRANULOCYTE % (AUTO) 0.4 % (0.0-0.5); LYMPHOCYTES # (AUTO) 1.5 T/MM3 (1-4.8); LYMPHOCYTES % (AUTO) 18.3 % (23-45); MEAN CORPUSCULAR HGB 28.1 UUG (26-34); MEAN CORPUSCULAR HGB CONC(MCHC 31.6 GM/DL (31-37); MEAN CORPUSCULAR VOLUME 88.9 UM3 (80-100); MEAN PLATELET VOLUME 11.4 UM3 (9.4-12.4); MONOCYTES # (AUTO) 0.8 T/MM3 (0-0.8); NEUTROPHILS #(AUTO)-ABSOLUTE 5.8 T/MM3 (1.8-7.7); NEUTROPHILS % (AUTO) 69.8 % (33-66); RED BLOOD COUNT 4.31 M/MM3 (4.00-5.20); WBC - WHITE BLOOD COUNT 8.4 T/MM3 (4.5-11.0)
--- NOTE | 2016-08-19 09:54 | NUR ---
RETURN PT RETURNED FROM RADIOLOGY PER THIS RN BY CART AT THIS TIME.
[2016-08-19 09:57] LABS: INR 1.16 (0.76-1.04); PROTHROMBIN TIME 12.6 SEC (9.31-12.49); PTT 29.1 SEC (24-36)
[2016-08-19 09:59] LABS: ANION GAP 14 MEQ/L (5-15); BUN/CREATININE RATIO 13 RATIO (6-26); CALCIUM 8.5 MG/DL (8.4-10.2); CHLORIDE 104 MEQ/L (98-107); CO2 - CARBON DIOXIDE 29 MEQ/L (22-30); CREATININE 0.9 MG/DL (0.7-1.2); GLOMERULAR FILTRATION RATE 59; GLUCOSE 102 MG/DL (65-110); POTASSIUM 3.1 MEQ/L (3.6-5); SODIUM 147 MEQ/L (134-144)
--- NOTE | 2016-08-19 10:05 | DI ---
EXAM: CT HEAD W/O CONTRAST COMPARISON: 07/09/2016. 04/02/2014. HISTORY: ITS.REASON: Fall; pain LOCATION OF DICTATION: [facility]. TECHNIQUE: Without IV contrast, axial images were obtained through the brain and reviewed in brain, soft tissue, bone, and subdural windows. The current CT scan was performed using radiation dose-reduction techniques. FINDINGS:There is again seen hypodensity extending from the left occipital lobe deep white matter to the cortex likely representing encephalomalacia change from prior ischemic event and was present on prior exam. There is a hypodensity seen at the right thalamus and possibly left thalamus which may represent old lacunar infarcts or prominent Virchow-Migue spaces and is similar to prior studies well. The CSF spaces are prominent likely related to atrophy in keeping with age. There is extensive periventricular deep white matter hypodensities are noted likely related to small vessel ischemic disease. The suprasellar cistern and quadrigeminal plate cisterns are intact. The rodgers-white junctions are otherwise distinct. No sulcal effacement is identified. The basal ganglia, posterior fossa and brainstem region otherwise appear unremarkable. There is no evidence for midline shift or mass effect. The midline structures appear unremarkable. No osseous abnormalities are identified. The paranasal sinuses and mastoid air cells are clear. IMPRESSION: 1. Atrophy in keeping with age. 2. There is extensive periventricular deep white matter hypodensities are noted likely related to small vessel ischemic disease. 3. Encephalomalacia changes are again seen at the left occipital lobe likely from prior ischemic event and is similar to the prior exam. 4. 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 This is similar to the prior exam as well. Note: This report was generated soon after the exam was performed and is immediately available to the ordering clinician on 08/19/2016 10:01 AM. .
--- NOTE | 2016-08-19 10:16 | DI ---
EXAM: CT CERVICAL SPINE W/O CONTRAST COMPARISON: 07/09/2016. 04/02/2014. HISTORY: ITS.REASON: Fall; pain LOCATION OF DICTATION: [facility] [place] TECHNIQUE: Axial images were obtained through the cervical spine with thin sections from the base of the skull through C7-T1 and reconstructed in thin sections as well as sagittal and coronal reformations. The current CT scan was performed using radiation dose-reduction techniques. FINDINGS: Vertebral bodies: Vertebral body heights are well-maintained. There is mild anterolisthesis of C4 on C5 again noted. There is mild disc space narrowing at C5-6 with mild posterior bony ridging. There is straightening of the normal cervical lordosis which can be seen with musculoskeletal strain. Disc spaces: There is mild disc space narrowing at C5-6. Axial images obtained through the base of the skull, shows the skull base to be intact. C1 is intact. C2 is intact. At C2-3, no significant spinal canal stenosis. There is left-sided facet hypertrophic change. C3 is intact. At C3-4, there is right-sided neural foraminal narrowing from facet and uncovertebral joint hypertrophic change. C4 is intact. At C4-5, there is right-sided neural foraminal narrowing from facet hypertrophic change. There is mild flattening of the anterior thecal sac. C5 is intact. At C5-6, there is mild disc bulge with convex mass effect on the anterior thecal sac. C6 is intact. At C6-7, no significant spinal canal stenosis. C7 is intact. At C7-T1 no significant spinal canal stenosis. Bones: There is no evidence for acute fracture, subluxation or dislocation. Soft tissues: No prevertebral soft tissue abnormality is identified. Lung apices: Review of the lung windows shows the lung apices to be clear without evidence for pneumothorax or pulmonary contusion identified. IMPRESSION: 1. Degenerative changes of the cervical spine are again noted as described above without evidence for acute fracture identified. Note: This report was generated soon after the exam was performed and is immediately available to the ordering clinician on 08/19/2016 10:12 AM. .
--- NOTE | 2016-08-19 10:31 | NUR ---
C-COLLAR REMOVED BY THIS RN AFTER VERBAL ORDERS PER DR. GONG AT THIS TIME. PT CONTINUES TO REPORT PAIN 8/10 AFTER MEDICATION ADM. DENIES FURTHER NEEDS AT THIS TIME. PROVIDER NOTIFIED OF PAIN. CALL LIGHT WITHIN REACH, FAMILY REMAINS AT BEDSIDE.
[2016-08-19 10:33] LABS: BLOOD, URINE NEGATIVE (NEGATIVE); COLOR,URINE YELLOW (YELLOW); LEUKOCYTE ESTERASE ,URINE NEGATIVE (NEGATIVE); NITRITE,URINE NEGATIVE (NEGATIVE); UROBILINOGEN,URINE 0.2 EU/DL (NORMAL)
--- NOTE | 2016-08-19 10:35 | NUR ---
OXYGEN SPO2 READS 98% ON 2LPM. PT NOT NORMALLY ON OXYGEN AT NURSING FACILITY, BUT WAS ADVISED BY EMS THAT DECREASED OXYGEN NOT UNCOMMON FOR PT WHILE LAYING DOWN. PT SITTING IN UPRIGHT POSITION, OXYGEN DC'D TO MONITOR PT'S RESPONSE. MAINTAINING SPO2 AT 94% ON RA. WILL CONTINUE TO MONITOR.
--- NOTE | 2016-08-19 10:36 | ERPDOC ---
Departure Disposition Decision Date: August 19, 2016 Disposition Decision Time: 10:40 Disposition: 01 DISCHARGED HOME, SELF-CARE Impression Impression Impression: Primary Impression: Fall Encounter type: initial encounter Qualified Codes: W19.XXXA - Unspecified fall, initial encounter Additional Impressions: Headache, tension-type Headache chronicity pattern: acute headache Intractability: not intractable Qualified Codes: G44.209 - Tension-type headache, unspecified, not intractable Neck pain Severity: Moderate Condition: Improved Seen By: Physician only Referrals: EDUARD CLARK MD (Family) 1 Week Patient Instructions: Acute Headache (ED), Fall Prevention for Older Adults (ED ) Problems/Meds/Labs Reviewed?: Yes Medications reviewed and manag: Yes Additional Instructions: You have fallen, but there are no new injuries. Take tylenol and your prescribed pain medications for continued pain or headache. Do your best to avoid falls in the future. Follow up with your doctor in the next week. Follow up care ordered?: Yes Mental Status: Alert, Oriented HPI - Fall/Injury General Chief Complaint: Fall Stated Complaint: FALL Time Seen by Provider: 09:13 Source: patient, EMS Exam Limitations: no limitations HPI - Fall/Injury Initial Comments 86yo ing home resident is presented to the ER by EMS following a fall. Pt c/o posterior head pain and neck pain following the fall. Fall was witnessed; pt was walking and fell - no abnormal movements or syncope noted. Occurred At: home Onset: Rapid Duration: 1 hr Pain Scale: Now & Worst: 5/10 Severity: moderate Injuries/Pain Location: head, neck Context: unknown Loss of Consciousness: no loss of consciousness Modifying Factors: IMPROVES WITH: cold therapy, immobilization, pain medication , WORSE WITH: jarring, movement Associated Symptoms: denies symptoms Hx of Similar Symptoms: Yes Allergies: Coded Allergies: cephalexin (Verified Allergy, Intermediate, 08/19/16) Penicillins (Verified Allergy, Unknown, 08/19/16) iodine (Verified Allergy, Unknown, 08/19/16) milk (Verified Allergy, Unknown, 08/19/16) gluten (Verified Adverse Reaction, Intermediate, diarrhea, stomach cramps , 08/19/16) Past History Patient Surgical History Back surgery Cholecystectomy Cardiac stent T&A Past Medical History Metabolic: diabetes, hypercholesterolemia, hypertension ENMT: cataracts, glaucoma Cardiac: A-fib, CAD, CHF, NJ, echocardiogram Respiratory: COPD, asthma, other, pneumonia GI: GERD, gallbladder disease, other Female: other Neurological: CVA, concussion, headaches, migraines, neuropathy Musculoskeletal: back pain, osteoarthritis Psychological: depression Surgical History General: back, gallbladder, other, tonsils Cardiac: cardiac cath, cardiac stent Family History Family PMH: FOUND: CAD, CHF, NJ, cancer, diabetes, hypertension Vaccines Hx Influenza Vaccination: Yes (FALL 2014) Hx Pneumococcal Vaccination: No (UNKNOWN MAYBE 2 YEARS AGO PER SON) Hx Tetanus Diptheria: No (UNKNOWN) Hx Tetanus, Diptheria, Pertuss: No (UNKNOWN) Social History Substance Use Type: does not use Alcohol Intake: none Housing: long-term Current Occupational Status: retired Advance Directives: Yes DNR Review of Systems Musculoskeletal General: pain, see HPI Neurological General: headache All other Systems All Other Systems: Reviewed and Negative Physical Exam General General Nourishment: well nourished, well developed, appears stated age, no acute distress, adult, obese General Body Habitus: well groomed Vitals and Pain First Documented Vital Signs Date Time Temp Pulse Resp B/P Pulse Ox O2 Delivery O2 Flow Rate FiO2 08/19/16 09:05 98.1 72 16 173/81 92 Room Air 08/19/16 10:00 2.00 Weight: Kilograms: 78.900 Height (feet): 5 Height (inches): 3.00 Triage Pain Scale: RN VS reviewed by Provider: Yes Normal Exams: Head: Normocephalic w/o trauma Eyes: Pupils are PERRLA w/ EOMI, No scleral icterus, irritation ENMT: No facial trauma, nasal exudates, pharyngeal erythema Neck: Full range of motion, without adenopathy, JVD Lymphatic: No lymphadenopathy Musculoskeletal: No tenderness, or deformity noted Integumentary: No rashes, hives, or bruising noted Neurologic: Patient is alert, and oriented Psychiatric: Patient exhibits, appropriate attention Respiratory (brief) Respiratory: FOUND: clear all florez, equal bilaterally, symmetrical, NOT FOUND : rales, wheezes Cardiovascular (brief) Cardiac: FOUND: regular rate, regular rhythm, NOT FOUND: click, gallop, murmur , pedal edema, peripheral edema, rub Capillary Refill: <2 sec Pulses: all distal extremities, equal, strong Abdomen (brief) Abdominal Brief: FOUND: bowel normo active x4, soft, NOT FOUND: distended, hepatosplenomegaly, pulsatile mass, tender Differential Diagnoses Considering: Concussion, Contusion, CVA, Fracture, Seizure, Subdural Hematoma, TIA, UTI, Vasovagal Progress Results/Orders Orders Procedure Category Date Status Time Cbc W/Auto LAB 08/19/16 Complete Diff-Reflex Manual 09:13 Bmp - Basic Metabolic LAB 08/19/16 Complete Panel 09:13 Ua, Dip Wreflex LAB 08/19/16 Complete Microsc & Instrumentation Instructor 09:13 INR LAB 08/19/16 Complete 09:13 PTT LAB 08/19/16 Complete 09:13 Ct Head W/O Contrast CT 08/19/16 Resulted 09:13 Ct Cervical Spine W/O CT 08/19/16 Resulted Contrast 09:13 Iv Lock (Ed Only) EDM 08/19/16 Transmitted 09:13 Troponin I W LAB 08/19/16 Complete Hemolysis Index 09:13 Ondansetron Inj PHA 08/19/16 Complete (Zofran) 09:15 Ketorolac (Toradol) PHA 08/19/16 Complete 09:15 Lab Results Laboratory Tests Test 08/19/16 09:36 08/19/16 10:22 White Blood Count 8.4T/MM3 Red Blood Count 4.31M/MM3 Hemoglobin 12.1GM/DL Hematocrit 38.3% Mean Corpuscular Volume 88.9UM3 Mean Corpuscular Hemoglobin 28.1UUG Mean Corpuscular Hemoglobin Concent 31.6GM/DL RDW Standard Deviation 49.6FL Platelet Count 199T/MM3 Mean Platelet Volume 11.4UM3 Immature Granulocyte % (Auto) 0.4% Neutrophils (%) (Auto) 69.8% Lymphocytes (%) (Auto) 18.3% Monocytes (%) (Auto) 10.0% Eosinophils (%) (Auto) 0.7% Basophils (%) (Auto) 0.8% Absolute Immature Granulocyte (auto 0.03T/MM3 Absolute Neutrophils (auto) 5.8T/MM3 Absolute Lymphocytes (auto) 1.5T/MM3 Absolute Monocytes (auto) 0.8T/MM3 Absolute Eosinophils (auto) 0.1T/MM3 Absolute Basophils (auto) 0.1T/MM3 Prothromb Time International Ratio 1.16 Activated Partial Thromboplast Time 29.1SEC Turbidity < 20 Sodium Level 147MEQ/L Potassium Level 3.1MEQ/L Chloride Level 104MEQ/L Carbon Dioxide Level 29MEQ/L Anion Gap 14MEQ/L Blood Urea Nitrogen 12.0MG/DL Creatinine 0.9MG/DL Glomerular Filtration Rate Calc 59 BUN/Creatinine Ratio 13RATIO Glucose Level 102MG/DL Calculated Osmolality 282MOSM/KG Calcium Level 8.5MG/DL Icterus Index < 2 Troponin I 0.032ng/ml Chemistry Specimen Hemolysis 19 Urine Collection Type Straight cath Urine Color Yellow Urine Turbidity Clear Urine pH 7.5 Urine Specific [place] 1.020 Urine Protein Trace Urine Glucose (UA) Negative Urine Ketones Negative Urine Blood Negative Urine Nitrite Negative Urine Bilirubin Negative Urine Urobilinogen 0.2EU/DL Urine Leukocyte Esterase Negative Urinalysis Comment Microscopic not ind. Medications Current ED Medications Ondansetron HCl (Zofran) 4 mg O ONCE IV Last administered on 08/19/16 09:55; Start 08/19/16 at 09:15; Stop 08/19/16 at 09:16; Status DC Ketorolac Tromethamine (Toradol) 30 mg O ONCE IV Last administered on 09:57; Start 08/19/16 at 09:15; Stop 08/19/16 at 09:16; Status DC Progress Progress 86yo woman s/p fall. No evidence of abnormal neurologic, cardiac, or infectious cause of fall. No head/neck pathology on CT. C-collar removed. Pt has improved head/neck pain. Will d/c to [place] home with instructions to f/u with PCM. Pt voiced understanding of dx, prognosis, and tx. CT CT #1: CT: Head no contrast Interpretation: Normal, Reviewed Written Report CT #2: CT: C-Spine no contrast Interpretation: Normal, Reviewed Written Report NORBERT GONG DO August 19, 2016 10:36
--- NOTE | 2016-08-19 10:56 | NUR ---
ATTEMPTED REPORT/TRANSPORTATION ATTEMPTED TO CALL REPORT TO NURSING STAFF AT [facility]. NURSE UNAVAILABLE TO RECEIVE REPORT. SPOKE WITH SHAHEED, STAFF AT [facility] AND WAS ADVISED WILL HAVE TO HAVE NURSE CALL BACK FOR BOTH REPORT AND TRANSPORTATION SET UP.
--- NOTE | 2016-08-19 11:05 | NUR ---
REPORT CALLED TO MONIE NATARAJAN AT [facility]. WRITTEN INSTRUCTIONS REVIEWED AT THIS TIME. ADVISED WE[employer] PORTAL DEVELOPER WILL BE NOTIFIED FOR TRANSPORTATION BACK TO FACILITY.
[2016-08-19 11:24] VITALS: BP 163/95; PULSE 68; RESP 16; TEMP 98.1; O2SAT 94
--- NOTE | 2016-08-19 11:24 | NUR ---
DISCHARGE WRITTEN INSTRUCTIONS SENT WITH PT BACK TO [facility]. PT EXITS ER BY W/C PER [facility] TRANSPORTATION STAFF AT THIS TIME.
== END 2016-08-19 11:24 | disposition home or self-care (01) ==
LOC: ED 09:02
DX: G44.209 Tension-type headache, unspecified, not intractable (principal); M54.2 Cervicalgia; I11.0 Hypertensive heart disease with heart failure; I50.9 Heart failure, unspecified; I48.91 Unspecified atrial fibrillation; W18.30XA Fall on same level, unspecified, initial encounter; Y93.01 Activity, walking, marching and hiking; Y92.009 Unspecified place in unspecified non-institutional (private) residence as the place of occurrence of the external cause; Y99.8 Other external cause status
CPT/HCPCS: 36415; 51701; 70450; 72125; 80048; 81003; 84484; 85025; 85610; 85730; 96374; 96375; 99284; J1885; J2405

== ENCOUNTER 2016-08-29 10:55 | Observation (INO) | payer MEDICARE, BC, MEDICAID ==
[~2016-08-29] VITALS: Ht 157.5 cm; Wt 77.5 kg
[~2016-08-29 10:55] MED LIST changes: +BISA10SU8 RECTALLY; -CLIN-89 PO; +DEXT15DR5 OP; +LEVO500T88 PO; +LORA0.5T2 PO; +MAG360OR92 PO; +NYST1POW8 TOP; +POLY255P2 PO
--- OUTSIDE RECORDS SUMMARY | 2016-08-29 11:01 | XMS REPORT | Continuity of Care Document ---
Author Author [facility] Organization [facility] Address Unknown Phone Unavailable Care Team Providers Care Technical Training Coordinator Name Role Phone Yuval Hoang Primary Care Physician [phone] Source Comments Some departments are not documenting in the electronic medical record. If you do not see the information that you expected, contact Release of Information in the Health Information Management department at [phone] for further assistance in locating additional records.[facility] Active Allergies and Adverse Reactions Allergen Noted Date Severity Reactions Comments Aspartame 09/16/2010 UNKNOWN Contrast Dye Iv, Iodine 09/16/2010 RASH, ITCHING Containing Gluten 09/16/2010 SEE COMMENTS Celiac disease Keflex 09/16/2010 NAUSEA AND VOMITING Lactose 09/16/2010 NAUSEA AND VOMITING Merthiolate (Thimerosal) 09/16/2010 UNKNOWN Penicillins 09/16/2010 SEE COMMENTS Bruising from IM injection Wtihreq-Mok-Jjh Reductase 09/16/2010 UNKNOWN Inhibitors Current Medications Prescription [...]
--- OUTSIDE RECORDS SUMMARY | 2016-08-29 11:01 | XMS REPORT | Continuity of Care Document ---
Author Author [facility] Organization [facility] Address Unknown Phone Unavailable Allergies [...] Status Pt. Type Provider Facility Loc./Unit Complaint [id number] 05/08/2012 05:57:00 2012 10:55:00 DIS Outpatient Jose Hightower MD [facility]
--- OUTSIDE RECORDS SUMMARY | 2016-08-29 11:01 | XMS REPORT | Continuity of Care Document ---
Author Author [facility] Organization [facility] Address Unknown Phone Unavailable Support Name Relationship Address Phone JES SIEGEL MD Caregiver [address] [place] [address] [place] [address] PEDRO LIU MD Caregiver [address] [place] [address] [place] [phone] JUAN CLARK MD Caregiver [address] [place] [phone] DARLEEN LAWTON Next Of Kin [address] [place] [address] Insurance Providers Payer Name Policy Number Subscriber Name Relationship Medicare [id number] Aurelia Duran 16 Self [facility] [id number] Aurelia Duran 16 Self Advance Directives Directive [...] PO TWICE A DAY 08/05/13 Active Fish Oil/[place]-3 Fatty Acids 1 Cap PO TWICE A [...] of your legs. 3.During office hours, call [phone] 4. After hours, please call [facility] at [phone], and have the regrind mill operator page your Surgeon IN THE EVENT [...] Hx Influenza Vaccination Y GIVEN 01/11/10 AT [facility] Historical Hx Pneumococcal Vaccination Y GIVEN 01/02/14 AT [facility] Historical Hx Tetanus, Diptheria, Pertussis N UNKNOWN Historical Hx Influenza Vaccination Y GIVEN 01/11/10 AT [facility] Historical Hx Tetanus Diptheria N UNKNOWN Historical [...] F (96.8 - 99.1) Temperature (Calculated Celsius) 35.00987 degrees C (36.0 - 37.3) Temperature Source [...] 01, 2014 9:21pm LAB TEST FORM REQUEST [id number] - Lipase January 08, 2014 12:24pm 136 [...] 12, 2014 5:29am 6.0 % N 0-9.0 MR-Dra-O-Type Natriuretic Peptide January 08, 2014 12:24pm 133 [...] specimen been collected/obtained? Y Urine Specific [place] January 08, 2014 3:05pm 1.010 L - [...] 4 DAYS Name: AURELIA DURAN Unit #: [id number] : 1930 Sex: F Loc / Svc: ED DOS: 01/08/14 Signed Report #: [id number] DIAGNOSTIC IMAGING REPORT TYPE OF EXAM: CHEST, [...] procedures. Encounters Encounter Location Date/Time Discharged Inpatient [facility] 01/10/14 9:17am Discharged Inpatient [facility] 01/03/14 10:31am Registered Clinic [facility] 01/01/14 4:18pm Registered [facility] 11/06/13 8:54am Recent Diagnosis Dyspnea on exertion COPD exacerbation Chest pain on exertion Pneumonia Dyspnea on exertion Diastolic CHF, chronic Obesity (BMI 30.0-34.9) Chest pain as manifestation of blood transfusion reaction HTN (hypertension) Elevated serum creatinine Hyponatremia
--- OUTSIDE RECORDS SUMMARY | 2016-08-29 11:02 | XMS REPORT | Continuity of Care Document ---
Author Author [facility] Organization [facility] Address Unknown Phone Unavailable Support Name Relationship Address Phone LEVAR DE SANTIAGO MD Caregiver [address] [address] EDUARD CLARK MD Caregiver [address] [place], [place] [phone] LAWTONDARLEEN Next Of Kin [address] [place], [place] [phone] Insurance Providers Payer Name Policy Number Subscriber Name Relationship Medicare [id number] Aurelia Duran 16 Self [facility] [id number] Aurelia Duran 16 Self Advance Directives Directive Response Recorded Date/Time Advanced Directives Type Living Will 10/13/13 1:33pm Ordered Resuscitation Status Full Code, unverified 02/19/14 3:20am Chief Complaint and Reason for Visit Chief Complaint Chest Pain Reason for Visit [id number] Dyspnea on exertion Chest pain on exertion [...] PO TWICE A DAY 08/05/13 Active Fish Oil/[place]-3 Fatty Acids 1 Cap PO TWICE A [...] A DAY 02/19/14 Active Sodium Chloride 1 Scott NS NEEDED 02/19/14 Active Clopidogrel Bisulfate 75 [...] Follow Up Appointments: Follow up with Dr. lCark as needed Condition at time of discharge: Good n/a Condition at time of discharge: Fair Plan of Care Discharge Date 01/12/14 6:00pm Disposition 02 TO [facility] Condition at Discharge Stable Instructions/Education [...] Pneumococcal Vaccination Y GIVEN 01/02/14 AT [facility] Historical Hx Tetanus, Diptheria, Pertussis N UNKNOWN Historical Hx Influenza Vaccination Y JANUARY 2014 Historical Hx Tetanus Diptheria N UNKNOWN Historical Hx Tetanus, Diptheria, Pertussis N UNKNOWN Historical Hx Tetanus Toxoid Vaccination N UNKNOWN Historical Vital Signs Acute Vital Signs Vital Response Date/Time Temperature (Fahrenheit) 96.7 deg F (96.8 - 99.1) Temperature (Calculated Celsius) 35.56779 degrees C (36.0 - 37.3) Temperature Source [...] 01, 2014 9:21pm LAB TEST FORM REQUEST [id number] - Lipase January 08, 2014 12:24pm 136 [...] COMMENT NURSE WILL CALL WHEN PT HERE SD-Vah-P-Type Natriuretic Peptide January 08, 2014 12:24pm 133 [...] Has specimen been collected/obtained? Y Urine Specific [place] January 08, 2014 3:05pm 1.010 L - [...] 5 DAYS Name: AURELIA DURAN Unit #: [id number] : 1930 Sex: F DISCHARGE SUMMARY Admit Date: 01/10/14 Report #: [id number] General Date Date DATE: 01/12/14 TIME: 14:46 [...] woman who was recently admitted to [facility] for CHF exacerbation. She was discharged on [...] from the hospital. She presented to [facility] ED for evaluation. There, lab and imaging [...] CM did get them set up with [facility]. She was instructed to f/u [...] Mg PO ACB 10/13/13 Gabapentin 300 Mg Mgnbbex324 Mg PO BID 10/13/13 Furosemide (Lasix)40 Mg Hoyhry74 Mg PO DAILY 10/13/13 Loratadine 10 Mg Cyqhpa70 Mg PO DAILY 08/05/13 Fish Oil/[place]-3 Fatty Acids (Fish Oil 1,000 Mg Softgel)1 Cap Capsule1 Cap PO BID 08/05/13 Calcium Carbonate (Calcium 500)1 Tab Tablet1 Tab PO BID 08/05/13 Antiox#10/Om3/Dha/Epa/Lut/Zeax (I-Caps With Lutein-[place] 3 Sfg)1 Each Capsule1 Each PO DAILY 08/05/13 Aspirin 81 Mg Lltaxv11 Mg PO DAILY 08/05/13 Red Yeast Rice 600 Mg Tablet1,200 Mg PO BID 08/05/13 Magnesium Oxide (Magnesium)250 Mg Tniziz699 Mg PO DAILY 08/05/13 Discharge Disposition stable Copies To 1: EDUARD CLARK MD, CARRIE DO Jan 12, 2014 14:46 Procedures Procedure Status Date Provider(s) ROUTINE VENIPUNCTURE completed 02/12/14 METABOLIC PANEL TOTAL CA completed 02/12/14 COMPLETE CBC W/AUTO DIFF WBC completed 02/12/14 ELECTROCARDIOGRAM TRACING completed 02/12/14 L HRT ARTERY/VENTRICLE ANGIO completed 02/12/14 DASHA DE SANTIAGO MD [id number] ITEM OR SERVICE completed 02/12/14188389"INJECTION, DIPHENHYDRAMINE HCL, UP TO 50 MG" completed 02/12/14355456"INJECTION, HEPARIN SODIUM, PER 1000 UNITS" completed 02/12/14699293"INJECTION, HEPARIN SODIUM, PER 1000 UNITS" completed 02/12/14995697"INJECTION, MIDAZOLAM HYDROCHLORIDE, PER 1 MG" completed 02/12/14929968"INJECTION, METHYLPREDNISOLONE SODIUM SUCCINATE, UP TO completed 003"INJECTION, FENTANYL CITRATE, 0.1 MG" completed 02/12/14446225GBJGPIKVGHGK DRUGS completed 02/12/14216206"INFUSION, NORMAL SALINE SOLUTION , 1000 CC" completed 02/12/14863412"LOW OSMOLAR CONTRAST MATERIAL, 300-399 MG/ML IODINE C completed Encounters Encounter Location Date/Time Departed [facility] 02/19/14 5:57am Departed [facility] 02/12/14 8:06am Registered Clinic [facility] 01/29/14 9:54am Discharged Inpatient [facility] 01/10/14 9:17am Discharged Inpatient [facility] 01/03/14 10:31am Registered Clinic [facility] 01/01/14 4:18pm
--- OUTSIDE RECORDS SUMMARY | 2016-08-29 11:02 | XMS REPORT | Continuity of Care Document ---
Author Author [facility] Organization [facility] Address Unknown Phone Unavailable Support Name Relationship Address Phone EDUARD CLARK MD Caregiver [address] [place] [phone] SONDRA BERGERON MD Caregiver [address] [place] [address] DARLEEN LAWTON Next Of Kin Unknown [phone] Insurance Providers Payer Name Policy Number Subscriber Name Relationship Medicare [id number] Aurelia Duran 16 Self [facility] [id number] [place]Aurelia 16 Self Advance Directives Directive Response Recorded [...] PO TWICE A DAY 08/05/13 Active Fish Oil/[place]-3 Fatty Acids 1 Cap PO TWICE A [...] F (96.8 - 99.1) Temperature (Calculated Celsius) 36.97394 degrees C (36.0 - 37.3) Pulse Rate [...] Has specimen been collected/obtained? Y Urine Specific [place] August 05, 2013 1:55pm <=1.005 L - [...] Encounters Encounter Location Date/Time Departed Emergency Room [facility] 10/13/13 1:28pm Departed Emergency Room [facility] 08/05/13 12:39pm Recent Diagnosis
--- OUTSIDE RECORDS SUMMARY | 2016-08-29 11:02 | XMS REPORT | Continuity of Care Document ---
Author Author [facility] Organization [facility] Address Unknown Phone Unavailable Support Name Relationship Address Phone DASHA DE SANTIAGO MD Caregiver [address] [place] [address] [place] [phone] EDUARD CLARK MD Caregiver [address] [place] [phone] DARLEEN LAWTON Next Of Kin [address] [place] [phone] Insurance Providers Payer Name Policy Number Subscriber Name Relationship Medicare [id number] Aurelia Duran [address] [facility] [id number] Aurelia Duran 16 Self Advance Directives Directive Response Recorded Date/Time Advanced Directives Type Living Will 10/13/13 1:33pm Ordered Resuscitation Status Full Code, unverified 02/12/14 8:44am Resuscitation Documents on File No 02/12/14 8:30am Chief Complaint and Reason for Visit Chief Complaint Chest Pain Reason for Visit [id number] Dyspnea on exertion Chest pain on exertion [...] PO TWICE A DAY 08/05/13 Active Fish Oil/[place]-3 Fatty Acids 1 Cap PO TWICE A [...] Discharge Date 01/12/14 6:00pm Disposition 02 TO [facility] Condition at Discharge Stable Instructions/Education Provided DI [...] F (96.8 - 99.1) Temperature (Calculated Celsius) 35.65417 degrees C (36.0 - 37.3) Temperature Source [...] 01, 2014 9:21pm LAB TEST FORM REQUEST [id number] - Lipase January 08, 2014 12:24pm 136 [...] COMMENT NURSE WILL CALL WHEN PT HERE QB-Nsn-U-Type Natriuretic Peptide January 08, 2014 12:24pm 133 [...] Has specimen been collected/obtained? Y Urine Specific [place] January 08, 2014 3:05pm 1.010 L - [...] 5 DAYS Name: AURELIA DURAN Unit #: [id number] : 1930 Sex: F DISCHARGE SUMMARY Admit Date: 01/10/14 Report #: [id number] General Date Date DATE: 01/12/14 TIME: 14:46 [...] CM did get them set up with [facility]. She was instructed to f/u with her [...] Mg PO ACB 10/13/13 Gabapentin 300 Mg Fftjwpu981 Mg PO BID 10/13/13 Furosemide (Lasix)40 Mg Oofxln89 Mg PO DAILY 10/13/13 Loratadine 10 Mg Nhlmri46 Mg PO DAILY 08/05/13 Fish Oil/[place]-3 Fatty Acids (Fish Oil 1,000 Mg Softgel)1 Cap Capsule1 Cap PO BID 08/05/13 Calcium Carbonate (Calcium 500)1 Tab Tablet1 Tab PO BID 08/05/13 Antiox#10/Om3/Dha/Epa/Lut/Zeax (I-Caps With Lutein-[place] 3 Sfg)1 Each Capsule1 Each PO DAILY 08/05/13 Aspirin 81 Mg Zyxmdf97 Mg PO DAILY 08/05/13 Red Yeast Rice 600 Mg Tablet1,200 Mg PO BID 08/05/13 Magnesium Oxide (Magnesium)250 Mg Nivsxq167 Mg PO DAILY 08/05/13 Discharge Disposition stable Copies To 1: EDUARD CLARK MD, CARRIE DO Jan 12, 2014 14:46 Procedures No known history of procedures. Encounters Encounter Location Date/Time Departed [facility] 02/12/14 8:06am Registered [facility] 01/29/14 9:54am Discharged Inpatient [facility] 01/10/14 9:17am Discharged Inpatient [facility] 01/03/14 10:31am Registered [facility] 01/01/14 4:18pm
--- OUTSIDE RECORDS SUMMARY | 2016-08-29 11:03 | XMS REPORT | Continuity of Care Document ---
Author Author [facility] Organization [facility] Address Unknown Phone Unavailable Support Name Relationship Address Phone AUGUST, NORBERT Vizcarra DO Caregiver [address] [place] [address] Unavailable EDUARD CLARK MD Caregiver [address] [place] [address] Unavailable DARLEEN LAWTON Next Of Kin [address] [place] [phone] Insurance Providers Guarantor Aurelia Duran Address [address] [address] [place] [address] Email [email or web address] Payer [facility] State Plan Policy Number [id number] Subscriber's Name Aurelia Duran Relationship 18 Self Effective Date 16 Expiration Date 16 Payer Medicare Policy Number [id number] Subscriber's Name Aurelia Duran Relationship 18 Self Effective Date 93 Payer [facility] Policy Number [id number] Subscriber's Name Aurelia Duran Relationship 18 Self Group Number [id number] Advance Directives Directive Response Recorded Date/Time Advanced Directives Type Living Will 10/13/13 1:33pm Chief Complaint and Reason for Visit Chief Complaint Fall Reason for Visit [id number] Neck pain Fall Problems Active Problems Medical Problem Onset Date [...] serum creatinine Unknown Acute Encephalopathy Unknown Resolved Fever Unknown Acute Fracture of metacarpal base of right hand, closed Unknown Acute Fracture, metacarpal Unknown Acute GERD (gastroesophageal reflux disease) Unknown Chronic Glaucoma Unknown Chronic HTN (hypertension) Unknown Chronic Headache, chronic daily Unknown Acute Headache, chronic daily Unknown Acute History of PA (myocardial infarction) Unknown Resolved History of cirrhosis [...] Problems Medical Problem Onset Date Bradycardia Unknown Fall Unknown Hand fracture, right Unknown Headache, tension-type Unknown Neck pain Unknown Pain, dental Unknown UTI (urinary tract infection) Unknown Medications Current Home Medications Medication Dose Units Route Directions Days Qty Instructions Start Date Acetaminophen 500 Mg Tablet 1,000 Mg Oral Every 4 Hours as needed for Pain 07/09/16 Albuterol Sulfate (Proair Hfa 90 Mcg/Actuation) 8.5 Gm Hfa.aer.ad 2 Puff Inhalation Every 4 Hours as needed for Wheezing 01/08/14 Bisacodyl 10 Mg Supp.rect 1 Supp Rectally Daily as needed for Constipation 08/19/16 Budesonide/Formoterol Fumarate (Symbicort 160-4.5 Mcg Inhaler) 10.2 Gm Hfa.aer.ad 2 Puff Inhalation Twice A Day 07/09/16 Calcium Carbonate/Vitamin D3 (Calcium + Vitamin D Tablet) 1 Each Tablet 1 Tab Oral Daily 11/23/14 Clopidogrel Bisulfate (Clopidogrel) 75 Mg Tablet 75 Mg Oral Daily 07/09/16 Dextran 70/Hypromellose (Artificial Tears Eye Drops) 15 Ml Drops 1 Drop Ophthalmic Four Times Daily as needed for Dry Eyes 08/19/16 Diltiazem Hcl (Diltiazem 24HR Cd) 120 Mg [...] 1 Drop Both Eyes Every Evening 01/08/14 Levofloxacin 500 Mg Tablet 500 Mg Oral Daily 10 Days STARTING 08/10/16 08/19/16 Loratadine 10 Mg Tablet 10 Mg Oral Before Breakfast 07/31/16 Lorazepam 0.5 Mg Tablet 0.5 Mg Oral Every 6 Hours as needed for Anxiety 08/19/16 Mag Hydrox/Al Hydrox/Simeth (Alum-Mag Hydroxide-Simeth Liq) 360 Ml Oral.susp 30 Ml Oral Every 4 Hours as needed for Epigastric Distress 08/19/16 Metoprolol Tartrate 25 Mg Tablet 25 Mg Oral Twice A Day 07/09/16 Nystatin 1 Each Powder.ea. 1 Applic Topically Twice A Day as needed for Prn Orders 08/19/16 Omeprazole (Prilosec) 40 Mg Capsule.dr 20 Mg Oral Before Breakfast 10/13/13 Polyethylene Glycol 3350 255 Gm Powder 17 Gm Oral Daily as needed for Constipation 08/19/16 Tramadol Hcl 50 Mg Tablet 25 Mg Oral Bedtime as needed for Pain 08/19/16 Past Home Medications Medication Directions Ordered Status Flaxseed (Flaxseed Oil) 1,000 Mg Capsule, 1000 Mg Oral Daily 08/05/13 Discontinued Furosemide (Lasix) 40 Mg Tablet, 40 Mg Oral Daily 10/13/13 Discontinued Hydrocodone Bit/Acetaminophen ([place] 5/325 Tablet) 1 Tab Tablet, 1-2 Tab [...] Onset Date Status Hx Substance Use No 08/19/2016 9:20am Not Applicable Not Applicable Hx Alcohol Use No 08/19/2016 9:20am Not Applicable Not Applicable Has the pt used tobacco in the last 12 months No 07/09/2016 3:44pm Not Applicable Not Applicable Tobacco Usage none 11/25/2014 9:27am Not Applicable Not Applicable Query Response Start Date Stop Date Smoking Status Unknown if ever smoked Hospital Discharge Instructions No hospital discharge instructions. Plan of Care Discharge Date 08/19/16 11:24am Disposition 01 DISCHARGED HOME, SELF-CARE Condition at Discharge Improved Instructions/Education Provided Fall Prevention for Older Adults (ED) Acute Headache (ED) Prescriptions See Medication Section Referrals EDUARD CLARK MD Order Date: 1 Week Address: [address] [place] [address] [phone] Note: Additional Instructions/Education You have fallen, but there are no new injuries. Take tylenol and your prescribed pain medications for continued pain or headache. Do your best to avoid falls in the future. Follow up with your doctor in the next week. Care Plan and Goals Physician Care Plan Problem: Fall Goal: Follow up with primary care provider Instructions: Take medications and follow care plan as discussed/written Functional Status No functional status results. 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 Analyst VIS Given Pneumococcal conjugate PCV 13 07/10/16 Administered 1 [id number] [employer] Pasteur 02/13/15 Query Response on File Recorded Date/Time Hx Influenza Vaccination Y fall 201407/09/16 3:44pm Hx Pneumococcal Vaccination N UNKNOWN MAYBE 2 YEARS AGO PER SON 07/09/16 3: 44pm Hx Tetanus, Diptheria, Pertussis N UNKNOWN 11/23/14 6:49am Hx Influenza Vaccination Y fall 201407/09/16 3:44pm Hx Tetanus Diptheria N UNKNOWN 08/19/16 9:20am Hx Tetanus, Diptheria, Pertussis N UNKNOWN 11/23/14 6:49am Hx Tetanus Toxoid Vaccination N UNKNOWN 08/19/16 9:20am Influenza Vaccine Hx 01/16/16 08/19/16 9:20am Pneumococcal PCV13 Vaccine Hx 01/02/14 08/19/16 9:20am Tdap Vaccine Hx NO OPEN WOUNDS 08/19/16 9:20am Vital Signs Acute Vital Signs Vital Response Date/Time Temperature (Fahrenheit) 98.1 deg F (96.8 - 99.1) 08/19/2016 11:24am Temperature (Calculated Celsius) 36.73784 degrees C (36.0 - 37.3) 08/19/2016 11:24am Pulse Rate (adult) 68 bpm (60 - 100) 08/19/2016 11:24am Respiratory Rate 16 breaths/min (10 - 20) 08/19/2016 11:24am O2 Sat by Pulse Oximetry 94 % (90 - 100) 08/19/2016 11:24am Oxygen Delivery Method Room Air 07/16/2016 12:00pm Oxygen Flow Rate 2.00 L/min 08/19/2016 11:24am Blood Pressure 163/95 mm Hg 08/19/2016 11:24am Blood Pressure Source Automatic Cuff 07/16/2016 12:00pm Height (Feet) 5 feet 08/19/2016 9:05am Height (Inches) 3.00 inches 08/19/2016 9:05am Weight (Kilograms) 78.900 kg 08/19/2016 9:05am Body Mass Index (BMI) 30.0 08/19/2016 9:05am Results Laboratory Results Test Name Result Units Flags Reference Collection Date/Time Result Date/ Time Comments Neutrophils % (Manual) 65.0 % 33-66 07/11/2016 [...] 07/09/2016 4:30pm < 6.0 NON-DIABETIC RANGE 6.1-7.9 CITIZEN [place] DIABETES ASSOC TARGET RANGE >8.0 ACTION SUGGESTED Urine WBC 50-200 /HPF H 0-5 07/11/2016 9:13am 07/11/2016 9:33am Urine WBC Clumps FEW 07/11/2016 9:13am 07/11/2016 9:33am Urine RBC 0-1 /HPF 0-3 07/11/2016 9:13am 07/11/2016 9:33am Urine Squamous Epithelial Cells NONE SEEN 07/11/2016 9:13am 2016 9:33am Urine Bacteria 4+ H NEGATIVE 07/11/2016 9:13am 07/11/2016 9:33am Urine Amorphous Urates FEW 07/09/2016 1:29pm 07/09/2016 1:53pm Urine Culture Indicated CULT REFLEXED &SETUP 07/11/2016 9:13am 05/2016 9:33am Glucometer 107 mg/dL 65-110 07/11/2016 6:21am 07/11/2016 6:25am White Blood Count 8.4 T/MM3 4.5-11.0 08/19/2016 9:36am 08/19/2016 9: 54am Red Blood Count 4.31 M/MM3 4.00-5.20 08/19/2016 9:36am 08/19/2016 9: 54am Hemoglobin 12.1 GM/DL 12-16 08/19/2016 9:36am 08/19/2016 9:54am Hematocrit 38.3 % 36-46 08/19/2016 9:36am 08/19/2016 9:54am Mean Corpuscular Volume 88.9 UM3 80-100 08/19/2016 9:36am 08/19/2016 9: 54am Mean Corpuscular Hemoglobin 28.1 UUG 26-34 08/19/2016 9:36am 2016 9:54am Mean Corpuscular Hemoglobin Concent 31.6 GM/DL 31-37 08/19/2016 9:36am 08/19/2016 9:54am RDW Standard Deviation 49.6 FL 36.9-50.2 08/19/2016 9:36am 08/19/2016 9 :54am Platelet Count 199 T/MM3 130-400 08/19/2016 9:36am 08/19/2016 9:54am Mean Platelet Volume 11.4 UM3 9.4-12.4 08/19/2016 9:36am 08/19/2016 9: 54am Neutrophils (%) (Auto) 69.8 % H 33-66 08/19/2016 9:36am 08/19/2016 9: 54am Lymphocytes (%) (Auto) 18.3 % L 23-45 08/19/2016 9:36am 08/19/2016 9: 54am Monocytes (%) (Auto) 10.0 % H 0-9.0 08/19/2016 9:36am 08/19/2016 9:54am Eosinophils (%) (Auto) 0.7 % 0-4 08/19/2016 9:36am 08/19/2016 9:54am Basophils (%) (Auto) 0.8 % 0-2 08/19/2016 9:36am 08/19/2016 9:54am Immature Granulocyte % (Auto) 0.4 % 0.0-0.5 08/19/2016 9:362016 9:54am Absolute Neutrophils (auto) 5.8 T/MM3 1.8-7.7 08/19/2016 9:362016 9:54am Absolute Lymphocytes (auto) 1.5 T/MM3 1-4.8 08/19/2016 9:362016 9:54am Absolute Monocytes (auto) 0.8 T/MM3 0-0.8 08/19/2016 9:3608/19/2016 9:54am Absolute Eosinophils (auto) 0.1 T/MM3 0-0.5 08/19/2016 9:362016 9:54am Absolute Basophils (auto) 0.1 T/MM3 0-0.2 08/19/2016 9:3608/19/2016 9:54am Absolute Immature Granulocyte (auto 0.03 T/MM3 0.00-0.03 08/19/2016 9: 3608/19/2016 9:54am Prothromb Time International Ratio 1.16 H 0.76-1.04 08/19/2016 9:3608/19/2016 9:57am THERAPUTIC RANGE=2.00-3.00 FOR ANTI-THROMBOSIS THERAPUTIC RANGE=2.50-3.50 FOR IMPLANTED VALVE Activated Partial Thromboplast Time 29.1 SEC 24-36 08/19/2016 9:36am 9:57am Icterus Index < 2 0-7 08/19/2016 9:3608/19/2016 9:59am Chemistry Specimen Hemolysis 19 0-25 08/19/2016 9:3608/19/2016 9: 59am 0-25: Specimen Exhibited No Hemolysis. Turbidity < 20 0-20 08/19/2016 9:3608/19/2016 9:59am Sodium Level 147 MEQ/L H 134-144 08/19/2016 9:3608/19/2016 9:59am Potassium Level 3.1 MEQ/L L 3.6-5 08/19/2016 9:3608/19/2016 9:59am Chloride Level 104 MEQ/L 98-107 08/19/2016 9:3608/19/2016 9:59am Carbon Dioxide Level 29 MEQ/L 22-30 08/19/2016 9:3608/19/2016 9: 59am Anion Gap 14 MEQ/L 5-15 08/19/2016 9:3608/19/2016 9:59am Blood Urea Nitrogen 12.0 MG/DL 7-08/19/2016 9:3608/19/2016 9: 59am Creatinine 0.9 MG/DL 0.7-1.2 08/19/2016 9:3608/19/2016 9:59am BUN/Creatinine Ratio 13 RATIO 6-08/19/2016 9:3608/19/2016 9:59am Glomerular Filtration Rate Calc 59 08/19/2016 9:3608/19/2016 9: 59am Glucose Level 102 MG/DL 65-110 08/19/2016 9:3608/19/2016 9:59am Calculated Osmolality 282 MOSM/KG H 261-280 08/19/2016 9:362016 9:59am Calcium Level 8.5 MG/DL 8.4-10.2 08/19/2016 9:3608/19/2016 9:59am Troponin I 0.032 ng/ml 0-0.12 08/19/2016 9:3608/19/2016 10:11am Troponin values with a difference of 55% increase from orginal troponin value represent a true biological DELTA value. (%increase Calc=Orginal Troponin value, divided by subsequent Troponin value, multiplied by 100) Urine Collection Type STRAIGHT CATH 08/19/2016 10:08/19/2016 10:33am Urine Color YELLOW YELLOW 08/19/2016 10:08/19/2016 10:33am Urine Turbidity CLEAR CLEAR 08/19/2016 10:08/19/2016 10:33am Urine Specific [place] 1.020 1.015-1.025 08/19/2016 10:22am 2016 10:33am Urine pH 7.5 5.0-8.0 08/19/2016 10:22am 08/19/2016 10:33am Urine Leukocyte Esterase NEGATIVE NEGATIVE 08/19/2016 10:22am 2016 10:33am Urine Nitrite NEGATIVE NEGATIVE 08/19/2016 10:2208/19/2016 10: 33am Urine Protein TRACE A NEGATIVE 08/19/2016 10:2208/19/2016 10:33am Urine Glucose (UA) NEGATIVE NEGATIVE 08/19/2016 10:2208/19/2016 10 :33am Urine Ketones NEGATIVE NEGATIVE 08/19/2016 10:2208/19/2016 10: 33am Urine Urobilinogen 0.2 EU/DL NORMAL 08/19/2016 10:22am 08/19/2016 10: 33am Urine Bilirubin NEGATIVE NEGATIVE 08/19/2016 10:2208/19/2016 10: 33am Urine Blood NEGATIVE NEGATIVE 08/19/2016 10:08/19/2016 10:33am Urinalysis Comment MICROSCOPIC NOT IND. 08/19/2016 10:2016 10:33am Microbiology Results Procedure Source Organism/Result Collection Date/Time Result Date/Time Result Status Urine Culture Not Provided ESCHERICHIA COLI 07/09/2016 1:53pm 07/11/2016 7 :38am Final Blood Culture Peripheral/Iv Start NO GROWTH AFTER 5 DAYS 07/09/2016 3:08pm 07/14/2016 3:10pm Final Urine Culture Urine, Valentin Indwelling ESCHERICHIA COLI 07/11/2016 9:33am 07/13/2016 7:32am Final Name: AURELIA DURAN Unit #: [id number] : 1930 Sex: F Admit Date: Loc / Svc: ED Discharge Date: DIAGNOSTIC IMAGING REPORT Report #: [id number] [facility] ANYI Solano EXAM: CT CERVICAL SPINE W/O CONTRAST COMPARISON: 07/09/2016. 04/02/2014. HISTORY: ITS.REASON: Fall; pain [place] [facility] [place] Axial images were obtained through the cervical spine with thin sections from the base of the skull through C7-T1 and reconstructed in thin sections as well as sagittal and coronal reformations. The current CT scan was performed using radiation dose-reduction techniques. FINDINGS: Vertebral bodies: Vertebral body heights are well-maintained. There is mild anterolisthesis of C4 on C5 again noted. There is mild disc space narrowing at C5-6 with mild posterior bony ridging. There is straightening of the normal cervical lordosis which can be seen with musculoskeletal strain. Disc spaces: There is mild disc space narrowing at C5-6. Axial images obtained through the base of the skull, shows the skull base to be intact. C1 is intact. C2 is intact. At C2-3, no significant spinal canal stenosis. There is left-sided facet hypertrophic change. C3 is intact. At C3-4, there is right-sided neural foraminal narrowing from facet and uncovertebral joint hypertrophic change. C4 is intact. At C4-5, there is right-sided neural foraminal narrowing from facet hypertrophic change. There is mild flattening of the anterior thecal sac. C5 is intact. At C5-6, there is mild disc bulge with convex mass effect on the anterior thecal sac. C6 is intact. At C6-7, no significant spinal canal stenosis. C7 is intact. At C7-T1 no significant spinal canal stenosis. Bones: There is no evidence for acute fracture, subluxation or dislocation. Soft tissues: No prevertebral soft tissue abnormality is identified. Lung apices: Review of the lung windows shows the lung apices to be clear without evidence for pneumothorax or pulmonary contusion identified. IMPRESSION: 1. Degenerative changes of the cervical spine are again noted as described above without evidence for acute fracture identified. Note: This report was generated soon after the exam was performed and is immediately available to the ordering clinician on 08/19/2016 10:12 AM. . Procedures Procedure Status Date Provider(s) Routine venipuncture Completed 06/16/16 Complete cbc w/auto diff wbc Completed 06/16/16 [id number] TRIP CHARGE. Completed 06/16/16 Insrt heart pm [...] RIGHT LOWER ARM USING SPLINT Completed 07/09/16 ANDREW MASTERSON MD Routine venipuncture Completed 07/21/16 Metabolic panel total ca Completed 07/21/16 [id number] TRIP CHARGE. Completed 07/21/16 Routine venipuncture Completed 07/31/16 Assay of troponin quant Completed 07/31/16 Electrocardiogram tracing Completed 07/31/16 Emergency dept visit Completed 07/31/16 [id number] ITEM OR SERVICE Completed 07/31/16 [id number] ITEM OR SERVICE Completed 07/31/16 Encounters Encounter Location Arrival/Admit Date Discharge/Depart Date Attending Provider Departed Emergency Room [facility] 08/19/16 9:02am 08/19/16 11: 24am NORBERT GONG DO Departed Emergency Room [facility] 07/31/16 4:17pm 07/31/16 6: 53pm FAINA KILLIAN DO [facility] 07/21/16 3:20am EDUARD CLARK MD Discharged Inpatient [facility] 07/09/16 2:49pm 07/16/16 3:15pm ANGELES FUNK MD [facility] 06/16/16 12:58am EDUARD CLARK MD Recent Diagnosis
--- OUTSIDE RECORDS SUMMARY | 2016-08-29 11:03 | XMS REPORT | Continuity of Care Document ---
Author Author [facility] Organization [facility] Address Unknown Phone Unavailable Support Name Relationship Address Phone JACE OSCAR DO Caregiver [address] [place] [address] EDUARD CLARK MD Caregiver [address] [place] [phone] DARLEEN LAWTON Next Of Kin Unknown [phone] Insurance Providers Payer Name Policy Number Subscriber Name Relationship Medicare [id number] RogerAurelia 18 Self [facility] [id number] Aurelia Duran 18 Self Advance Directives Directive [...] PO TWICE A DAY 08/05/13 Active Fish Oil/[place]-3 Fatty Acids 1 Cap PO TWICE A [...] AT 1:00PM FOR ECHOCARDIOGRAM. CHECK IN AT [facility] REGISTRATION ON 01/15/14 AT 8:30AM [...] BECOMES DISLODGED OR WET Durable Medical Equipment: [employer] [phone] Notify Physician If: CALL YOUR SURGEON IF: [...] and call Dr. Camarillo with the result [phone]. Condition at time of discharge: Good Plan of Care Discharge Date 01/03/14 3:55pm Disposition 01 DISCHARGED HOME, SELF-CARE Instructions/Education Provided [facility] Congestive Heart Failure Prescriptions See Medications Section Functional Status Query Response Date Recorded Mental Status Alert October 13, 2013 4:56pm Allergies, Adverse Reactions, Alerts Allergen Type Severity Reaction Status Last Updated iodine Allergy Unknown Active 01/02/14 Penicillin Allergy Unknown Active 01/02/14 Cephalexin Allergy Intermediate Active 01/02/14 Immunizations Name Given Type Hx Influenza Vaccination No Historical Hx Pneumococcal Vaccination Y GIVEN 01/02/14 AT [facility] Historical Hx Influenza Vaccination No Historical Vital Signs Acute Vital Signs Vital Response Date/Time Temperature (Fahrenheit) 98.9 deg F (96.8 - 99.1) Temperature (Calculated Celsius) 37.67006 degrees C (36.0 - 37.3) Temperature Source [...] 02, 2014 5:13am 10.4 % H 0-9.0 CB-Bie-A-Type Natriuretic Peptide January 02, 2014 5:13am 244 [...] REFLEXHas specimen been collected/obtained? Y Urine Specific [place] January 01, 2014 8:10pm <=1.005 L - [...] DN 4.5-11.0 Name: AURELIA DURAN Unit #: [id number] : 1930 Sex: F DISCHARGE SUMMARY Admit Date: 01/03/14 Report #: [id number] General Date Date DATE: 01/03/14 TIME: 14:50 [...] 83-year-old female who was brought to the [facility] to see Dr. Min for increasing [...] TAB Prov:OSCAR BROWN DO 01/03/14 Hydrocodone Bit/Acetaminophen ([place] 5/325 Tablet)1 Tab Tablet1-2 Tab PO Q4-6H PRN (PAIN) #20 TAB Prov:SIA CARBONE 10/13/13 Reported Medications Tramadol Hcl 50 Mg Buibmn27 Mg PO PRN 10/13/13 Tolterodine Tartrate (Detrol La)4 Mg Cap.sr.24h4 Mg PO DAILY 10/13/13 Budesonide/Formoterol Fumarate (Symbicort 160-4.5 Mcg Inhaler)10.2 Gm Hfa.aer.ad10.2 Gm IH DAILY 10/13/13 Potassium Chloride 10 Meq Capsule.sa10 Meq PO BID 10/13/13 Iron Ps Cmplx/Vit B12/Fa (Poly-Iron 150 Forte Capsule)1 Udcap Capsule1 Udcap PO BID 10/13/13 Omeprazole (Prilosec)40 Mg Capsule.dr40 Mg PO ACB 10/13/13 Gabapentin 300 Mg Vfzajoc396 Mg PO BID 10/13/13 Furosemide (Lasix)40 Mg Ejorfs29 Mg PO DAILY 10/13/13 Loratadine 10 Mg Bzfyve98 Mg PO DAILY 08/05/13 Fish Oil/[place]-3 Fatty Acids (Fish Oil 1,000 Mg Softgel)1 Cap Capsule1 Cap PO BID 08/05/13 Calcium Carbonate (Calcium 500)1 Tab Tablet1 Tab PO BID 08/05/13 Antiox#10/Om3/Dha/Epa/Lut/Zeax (I-Caps With Lutein-[place] 3 Sfg)1 Each Capsule1 Each PO DAILY 08/05/13 Aspirin 81 Mg Xlrenb85 Mg PO DAILY 08/05/13 Red Yeast Rice 600 Mg Tablet1,200 Mg PO BID 08/05/13 Magnesium Oxide (Magnesium)250 Mg Rtiiml305 Mg PO DAILY 08/05/13 Discontinued Reported Medications [...] procedures. Encounters Encounter Location Date/Time Discharged Inpatient [facility] 01/03/14 10:31am Registered Clinic [facility] 01/01/14 4:18pm Registered Clinic [facility] 11/06/13 8:54am Departed Emergency Room [facility] 10/13/13 1:28pm Recent Diagnosis CHF exacerbation A-fib Asthma with COPD CAD (coronary artery disease) Diabetes GERD (gastroesophageal reflux disease) Insomnia Urge incontinence Sleep apnea Glaucoma Depression History of cirrhosis
--- OUTSIDE RECORDS SUMMARY | 2016-08-29 11:03 | XMS REPORT | Continuity of Care Document ---
Author Author [facility] Organization [facility] Address Unknown Phone Unavailable Support Name Relationship Address Phone MAGNUS BACK MD Caregiver [address] [place] [address] [address] [place] [phone] ОЛЬГА JOHNSON FACS, MD Caregiver [address] [place] [address] [address] [place] [address] [phone] PEDRO LIU MD Caregiver [address] [place] [address] [place] [phone] EDUARD CLARK MD Caregiver [address] [place] [address] [place] [phone] DARLEEN LAWTON Next Of Kin [address] [place] [address] Insurance Providers Payer Name Policy Number Subscriber Name Relationship Medicare [id number] Aurelia Duran 16 Self [facility] [id number] Aurelia Duran 16 Self Advance Directives Directive [...] perforation Closed rib fracture Dyslipidemia History of IA (myocardial infarction) Allergic rhinitis Osteoarthritis Back pain [...] ~04/02/2014 Active Dyslipidemia Unknown Active History of IA (myocardial infarction) Unknown Active Allergic rhinitis Unknown [...] PO TWICE A DAY 08/05/13 Active Fish Oil/Crawford-3 Fatty Acids 1 Cap PO TWICE A [...] A DAY 02/19/14 Active Sodium Chloride 1 Leonardo NS NEEDED 02/19/14 Active Clopidogrel Bisulfate 75 [...] have difficulty breathing. During office hours, call [phone]. After hours, please call [facility] at [phone] and have the bench boring machine operator page Dr. Pretty or the covering surgeon. *In the event of an emergency, seek medical care at the nearest emergency room.* Condition at time of discharge: Good Plan of Care Discharge Date 04/11/14 4:35pm Disposition 06 HOME HEALTH SERVICE Instructions/Education Provided [facility] Congestive Heart Failure DI [...] Pneumococcal Vaccination Y GIVEN 01/02/14 AT [facility] Historical Hx Tetanus, Diptheria, Pertussis N UNKNOWN Historical Hx Influenza Vaccination Y JANUARY 2014 Historical Hx Tetanus Diptheria N UNKNOWN Historical Hx Tetanus, Diptheria, Pertussis N UNKNOWN Historical Hx Tetanus Toxoid Vaccination N UNKNOWN Historical Vital Signs Acute Vital Signs Vital Response Date/Time Temperature (Fahrenheit) 96.7 deg F (96.8 - 99.1) Temperature (Calculated Celsius) 35.77717 degrees C (36.0 - 37.3) Temperature Source [...] 01, 2014 9:21pm LAB TEST FORM REQUEST [id number] - Large Platelets April 08, 2014 4:37am [...] 10, 2014 5:05am 13.4 % H 0-9.0 HV-Lim-X-Type Natriuretic Peptide April 02, 2014 8:46am 438 [...] Has specimen been collected/obtained? Y Urine Specific [place] April 02, 2014 9:05am 1.010 L - [...] 5 DAYS Name: AURELIA DURAN Unit #: [id number] : 1930 Sex: F DISCHARGE SUMMARY Admit Date: 04/02/14 Report #: [id number] General Date Date DATE: 04/11/14 TIME: 14:18 Attending Physician Magnus Back MD Admitting Physician Magnus Back MD Consulting Physician [facility] Dr Johnson Admitting Diagnosis (1) Syncope Status: Acute (2) Diverticulitis of large intestine with perforation Status: Acute (3) Respiratory insufficiency Status: Acute Assessment & Plan: present on admission (4) Closed rib fracture Onset Date: ~ 04/02/2014 Status: Acute Assessment & Plan: [id number] rib (5) Bradycardia Status: Acute Assessment & [...] Urge incontinence Status: Chronic (22) History of IA (myocardial infarction) Status: Chronic (23) Dyslipidemia Status: [...] 84 year old female who presented to [facility] ED today, 04/02/14, via EMS for severe low back pain after falling at home. She reports that she remembers going to bed last night and then woke up this morning on the floor. She pushed her emergency button to alert EMS who responded and transported her to [facility] ED. Upon arrival to [...] ~ 04/02/2014 Status: Acute Assessment & Plan: [id number] rib (5) Bradycardia Status: Resolved Assessment & [...] (18) Diabetes Status: Chronic (19) History of IA (myocardial infarction) Status: Chronic (20) Dyslipidemia Status: Chronic DVT Prophylaxis: SCD'S GI Prophylaxis: Protonix Code Status Full Code Home Meds Active Scripts Polyethylene Glycol 3350 17 Gm Powd.pack1 Packet PO DAILY 30 Days Prov:OSCAR MCCORMICK DO 04/11/14 Ciprofloxacin HCl (Cipro)500 Mg Gkkqar224 Mg PO Q12HR 10 Days Prov:OSCAR MCCORMICK DO 04/11/14 Hydrocodone/Acetaminophen (Hydrocodon-Acetaminophen 5-325)1 Tab Tablet1 Tab PO Q4H PRN (PAIN) #30 TAB Prov:OSCAR MCCORMICK DO 04/11/14 Metronidazole (Flagyl)500 Mg Bpaojm439 Mg PO Q12HR 10 Days Prov:OSCAR MCCORMICK DO 04/11/14 Clopidogrel Bisulfate (Plavix)75 Mg Frfpwp80 Mg PO DAILY #30 Ref 11 Prov:LEVAR DE SANTIAGO MD 02/19/14 Potassium Chloride 20 Meq Tablet.er20 Meq PO BIDWM #0 TAB Take 1 tablet, by mouth, two times a day with meals. Prov:DASHA DE SANTIAGO MD 02/12/14 Enalapril Maleate 10 Mg Tablet1 Tab PO BID #60 TAB Prov:OSCAR MCCORMICK DO 01/03/14 Reported Medications Sodium Chloride (Saline Nasal Leonardo)30 Ml Spray1 Leonardo NS PRN 02/19/14 Guaifenesin 400 Mg Tablet1 [...] Mg PO ACB 10/13/13 Gabapentin 300 Mg Dqcmdud736 Mg PO BID 10/13/13 Furosemide (Lasix)40 Mg Qfzapg85 Mg PO DAILY RESTART ON FEB 14. 10/13/13 Loratadine 10 Mg Rmptam61 Mg PO DAILY 08/05/13 Fish Oil/Crawford-3 Fatty Acids (Fish Oil 1,000 Mg Softgel)1 Cap Capsule1 Cap PO BID 08/05/13 Calcium Carbonate (Calcium 500)1 Tab Tablet1 Tab PO BID 08/05/13 Antiox#10/Om3/Dha/Epa/Lut/Zeax (I-Caps With Lutein-Crawford 3 Sfg)1 Each Capsule1 Each PO DAILY 08/05/13 Aspirin 81 Mg Zzhron48 Mg PO DAILY 08/05/13 Red Yeast Rice 600 Mg Tablet1,200 Mg PO BID 08/05/13 Magnesium Oxide (Magnesium)250 Mg Wsnbmp641 Mg PO DAILY 08/05/13 Discharge Disposition stable [...] ANGIO completed 02/12/14 DASHA DE SANTIAGO MD [id number] ITEM OR SERVICE completed 02/12/14607710"INJECTION, DIPHENHYDRAMINE HCL, UP TO 50 MG" completed 02/12/14"INJECTION, HEPARIN SODIUM, PER 1000 UNITS" completed 02/12/14"INJECTION, HEPARIN SODIUM, PER 1000 UNITS" completed 02/12/14"INJECTION, MIDAZOLAM HYDROCHLORIDE, PER 1 MG" completed 02/12/14"INJECTION, METHYLPREDNISOLONE SODIUM SUCCINATE, UP TO completed "INJECTION, FENTANYL CITRATE, 0.1 MG" completed 02/12/14260194DYTDBVGZKCDU DRUGS completed 02/12/14"INFUSION, NORMAL SALINE SOLUTION , 1000 CC" completed 02/12/14"LOW OSMOLAR CONTRAST MATERIAL, 300-399 MG/ML IODINE C completed ROUTINE VENIPUNCTURE completed 02/19/14 METABOLIC PANEL TOTAL CA completed 02/19/14 BL SMEAR W/DIFF WBC COUNT completed 02/19/14 COMPLETE CBC AUTOMATED completed 02/19/14 [id number] ITEM OR SERVICE completed 02/19/14 [id number] ITEM OR SERVICE completed 02/19/14 [id number] ITEM OR SERVICE completed 02/19/14 [id number] ITEM OR SERVICE completed 02/19/14259856"CLOSURE DEVICE, VASCULAR (IMPLANTABLE/INSERTABLE)" completed 02/19/14655797VEOZN WIRE completed 02/19/14"STENT, COATED/COVERED, WITH DELIVERY SYSTEM" completed 02/19/14"CATHETER, GUIDING (MAY INCLUDE INFUSION/PERFUSION CAP completed [id number] THAN PEEL-AWAY completed 02/19/14 completed 02/19/14 LEVAR DE SANTIAGO MD [id number]"INJECTION, HEPARIN SODIUM, PER 1000 UNITS" completed 02/19/14"INJECTION, HEPARIN SODIUM, PER 1000 UNITS" completed 02/19/14"INJECTION, MIDAZOLAM HYDROCHLORIDE, PER 1 MG" completed 02/19/14"INJECTION, FENTANYL CITRATE, 0.1 MG" completed 02/19/14"INFUSION, NORMAL SALINE SOLUTION , 1000 CC" completed 02/19/14"LOW OSMOLAR CONTRAST MATERIAL, 300-399 MG/ML IODINE C completed Encounters Encounter Location Date/Time Discharged Inpatient [facility] 04/02/14 8:47am Departed Clinic [facility] 02/19/14 5:57am Departed Clinic [facility] 02/12/14 8:06am Registered Clinic [facility] 01/29/14 9:54am Discharged Inpatient [facility] 01/10/14 9:17am Recent Diagnosis Diabetes Urge incontinence History of cirrhosis Bradycardia Diverticulitis of large intestine with perforation Closed rib fracture Dyslipidemia History of IA (myocardial infarction) Allergic rhinitis Osteoarthritis Back pain Respiratory insufficiency Syncope Injury of jaw Low back pain Diverticulitis of large intestine with perforation Fall
[2016-08-29] MEDS ORDERED: POTA-81 PO (11:12)
--- NOTE | 2016-08-29 11:31 | ERPDOC ---
Departure Disposition Decision Date: August 29, 2016 Disposition Decision Time: 12:00 Disposition: 02 TO [facility] Impression Impression Impression: Primary Impression: Altered mental status Altered mental status type: unspecified Qualified Codes: R41.82 - Altered mental status, unspecified Severity: Moderate Condition: Improved Seen By: Physician only Referrals: EDUARD CLARK MD (Family) Problems/Meds/Labs Reviewed?: Yes Medications reviewed and manag: Yes Follow up care ordered?: Yes Mental Status: Alert HPI - General Medical General Chief Complaint: Neuro Symptoms/Deficits Stated Complaint: NOT RESPONDING NORMALLY Time Seen by Provider: 11:01 Source: EMS, [facility]pc records Exam Limitations: clinical condition HPI - General Medical Initial Comments 86-year-old female presents to the emergency department with a chief complaint of an altered mental status. Patient was noted to be responding differently than normal to her fpc staff upon awakening this morning. This was at approximately 8:00 AM when she woke. Patient is refusing to speak and will not follow commands. Patient does have a history of behavioral disturbances with similar symptoms in the past. When the patient's symptoms persisted to approximately 11:00 AM she was sent to the emergency department for further evaluation and treatment. Patient refuses to follow commands or answer questions upon arrival to the ED. History is limited secondary to patient cooperation. History is obtained from the [facility]pc and EMS records. There has been no noted trauma or injury. No recent medication changes. Occurred At: other (Assisted) Onset: other (Improving) Allergies: Coded Allergies: cephalexin (Verified Allergy, Intermediate, 08/19/16) Penicillins (Verified Allergy, Unknown, 08/19/16) iodine (Verified Allergy, Unknown, 08/19/16) milk (Verified Allergy, Unknown, 08/19/16) gluten (Verified Adverse Reaction, Intermediate, diarrhea, stomach cramps , 08/19/16) Past History Patient Surgical History Back surgery Cholecystectomy Cardiac stent T&A Past Medical History Metabolic: diabetes, hypercholesterolemia, hypertension ENMT: cataracts, glaucoma Cardiac: A-fib, CAD, CHF, MT, echocardiogram Respiratory: COPD, asthma, other, pneumonia GI: GERD, gallbladder disease, other Female: other Neurological: CVA, concussion, headaches, migraines, neuropathy Musculoskeletal: back pain, osteoarthritis Psychological: depression Surgical History General: back, gallbladder, other, tonsils Cardiac: cardiac cath, cardiac stent Family History Family PMH: FOUND: CAD, CHF, MT, cancer, diabetes, hypertension Vaccines Hx Influenza Vaccination: Yes (FALL 2014) Hx Pneumococcal Vaccination: No (UNKNOWN MAYBE 2 YEARS AGO PER SON) Hx Tetanus Diptheria: No (UNKNOWN) Hx Tetanus, Diptheria, Pertuss: No (UNKNOWN) Social History Smoking Status: Unknown if ever smoked Substance Use Type: does not use Alcohol Intake: none Housing: fpc Current Occupational Status: retired Advance Directives: Yes DNR Review of Systems Unable to Obtain ROS Due to: clinical condition Physical Exam General General Nourishment: well nourished, well developed, appears stated age, no acute distress, adult General Body Habitus: well groomed Vitals and Pain First Documented Vital Signs Date Time Temp Pulse Resp B/P Pulse Ox O2 Delivery O2 Flow Rate FiO2 08/29/16 10:55 62 16 180/81 95 Room Air 08/29/16 10:55 98.6 Weight: Kilograms: Height (feet): 5 Height (inches): 3.00 Triage Pain Scale: RN VS reviewed by Provider: Yes Normal Exams: Head: Normocephalic w/o trauma Eyes: Pupils are PERRLA w/ EOMI, No scleral icterus, irritation, or foreign bodies noted ENMT: No facial trauma, nasal exudates, pharyngeal erythema, or exudates are noted Dental: No fractured, loose, or missing teeth noted Neck: Full range of motion, without adenopathy, JVD, bruits or thyromegaly Chest/Resp: Clear all florez, with good airflow, and symmetry bilaterally CV: Regular rate and rhythm, without murmur or gallop, Pulses 2+ all extremities, capillary refill, <2 seconds all ext., no pedal edema noted Abdomen: Bowel sounds positive, soft, non-tender, non-distended, no hepatosplenomegaly, masses or bruits noted Lymphatic: No lymphadenopathy, or lymphedema noted Musculoskeletal: No tenderness, or deformity noted, good range of motion, all extremities Integumentary: No rashes, hives, or bruising noted, hair and nails, without abnormality Neurologic: Patient is alert Neurologic (brief) Comments Neurologic examination is severely limited secondary to patient cooperation. Patient does move all 4 extremities without deficit and has spoken to nursing staff but refuses to speak to myself. Differential Diagnoses Considering: CVA, Hypo/Hyperglycemia, Medication Effect, Metabolic, TIA, UTI, Other (Behavioral Issue) Progress Results/Orders Orders Procedure Category Date Status Time Ct Head W/O Contrast CT 08/29/16 Resulted 11:07 Cbc W/Auto LAB 08/29/16 Complete Diff-Reflex Manual Cmp - Comprehensive LAB 08/29/16 Complete Metabolic Troponin I W LAB 08/29/16 Complete Hemolysis Index EKG EKG 08/29/16 Logged Chest 1 View RAD 08/29/16 Resulted 11:07 Ua, Dip Wreflex LAB 08/29/16 Complete Microsc & Deaf Interpreter 11:07 INR LAB 08/29/16 Complete PTT LAB 08/29/16 Complete Straight Cath EDM 08/29/16 Transmitted 11:07 Bladder Scanner (Ed) EDM 08/29/16 Transmitted 11:07 Lab Results Laboratory Tests Test 08/29/16 11:01 08/29/16 11:24 08/29/16 11:54 Glucometer 95mg/dL White Blood Count 8.6T/MM3 Red Blood Count 4.72M/MM3 Hemoglobin 13.1GM/DL Hematocrit 41.5% Mean Corpuscular Volume 87.9UM3 Mean Corpuscular Hemoglobin 27.8UUG Mean Corpuscular Hemoglobin Concent 31.6GM/DL RDW Standard Deviation 49.3FL Platelet Count 278T/MM3 Mean Platelet Volume 11.0UM3 Immature Granulocyte % (Auto) 0.2% Neutrophils (%) (Auto) 68.3% Lymphocytes (%) (Auto) 19.4% Monocytes (%) (Auto) 8.8% Eosinophils (%) (Auto) 2.6% Basophils (%) (Auto) 0.7% Absolute Immature Granulocyte (auto 0.02T/MM3 Absolute Neutrophils (auto) 5.9T/MM3 Absolute Lymphocytes (auto) 1.7T/MM3 Absolute Monocytes (auto) 0.8T/MM3 Absolute Eosinophils (auto) 0.2T/MM3 Absolute Basophils (auto) 0.1T/MM3 Prothromb Time International Ratio 1.00 Activated Partial Thromboplast Time 29.9SEC Turbidity < 20 Sodium Level 146MEQ/L Potassium Level 4.5MEQ/L Chloride Level 107MEQ/L Carbon Dioxide Level 29MEQ/L Anion Gap 10MEQ/L Blood Urea Nitrogen 8.0MG/DL Creatinine 0.9MG/DL Glomerular Filtration Rate Calc 59 BUN/Creatinine Ratio 9RATIO Glucose Level 103MG/DL Calculated Osmolality 279MOSM/KG Calcium Level 9.4MG/DL Total Bilirubin 0.60MG/DL Icterus Index < 2 Aspartate Amino Transf (AST/SGOT) 19U/L Alanine Aminotransferase (ALT/SGPT) 30U/L Alkaline Phosphatase 78U/L Troponin I < 0.012ng/ml Total Protein 6.8G/DL Albumin 4.0G/DL Globulin 2.8G/DL Albumin/Globulin Ratio 1.4RATIO Chemistry Specimen Hemolysis < 15 Urine Collection Type Cleancatch-midstream Urine Color Yellow Urine Turbidity Clear Urine pH 7.5 Urine Specific [place] 1.010 Urine Protein Negative Urine Glucose (UA) Negative Urine Ketones Negative Urine Blood Negative Urine Nitrite Negative Urine Bilirubin Negative Urine Urobilinogen 0.2EU/DL Urine Leukocyte Esterase Negative Urinalysis Comment Microscopic not ind. Progress Progress Labs/imaging were explained to the patient in detail. Patient has taken her Plavix today prior to arrival to the emergency Department. Patient was discussed with tele-neurology upon arrival to the emergency department and recommendation is no TPA at this time. Patient is admitted to the hospital in observation status for further evaluation and treatment. No further orders from tele-neurology Dr. Boyle or accepting physician Dr. Fishman who are both in agreement with the current plan of management. Patient is admitted to the hospital in improved condition. He shouldn't was not a TPA candidate due to being outside of the window for TPA therapy. I am unable to complete NIH score on this patient. Patient's symptoms appear to be improving in the emergency department. EKG EKG : Rate: 60-100 Rhythm: other (atrial paced rhythm.) [place]: normal QRS: RBBB Intervals: normal ST/T: normal Interpreted by: signing physician Xray Xray : Xray: CXR Portable Interpretation: Normal, Interpreted by Me CT CT : CT: Head no contrast Interpretation: Normal, Faxed Report FAINA KILLIAN DO August 29, 2016 11:31
--- OUTSIDE RECORDS SUMMARY | 2016-08-29 11:32 | XMS REPORT | Continuity of Care Document ---
Author Author [facility] Organization [facility] Address Unknown Phone Unavailable Care Team Providers Care Pet Care Worker Name Role Phone Yuval Hoang Primary Care Physician [phone] Source Comments Some departments are not documenting in the electronic medical record. If you do not see the information that you expected, contact Release of Information in the Health Information Management department at [phone] for further assistance in locating additional records.[facility] Active Allergies and Adverse Reactions Allergen Noted Date Severity Reactions Comments Aspartame 09/16/2010 UNKNOWN Contrast Dye Iv, Iodine 09/16/2010 RASH, ITCHING Containing Gluten 09/16/2010 SEE COMMENTS Celiac disease Keflex 09/16/2010 NAUSEA AND VOMITING Lactose 09/16/2010 NAUSEA AND VOMITING Merthiolate (Thimerosal) 09/16/2010 UNKNOWN Penicillins 09/16/2010 SEE COMMENTS Bruising from IM injection Rlgzdzw-Csw-Giz Reductase 09/16/2010 UNKNOWN Inhibitors Current Medications Prescription [...]
[2016-08-29 11:33] LABS: BASOPHILS # (AUTO) 0.1 T/MM3 (0-0.2); BASOPHILS % (AUTO) 0.7 % (0-2); EOSINOPHILS # (AUTO) 0.2 T/MM3 (0-0.5); EOSINOPHILS % (AUTO) 2.6 % (0-4); HCT - HEMATOCRIT 41.5 % (36-46); HGB - HEMOGLOBIN 13.1 GM/DL (12-16); IMMATURE GRANULOCYTE # (AUTO) 0.02 T/MM3 (0.00-0.03); IMMATURE GRANULOCYTE % (AUTO) 0.2 % (0.0-0.5); LYMPHOCYTES # (AUTO) 1.7 T/MM3 (1-4.8); LYMPHOCYTES % (AUTO) 19.4 % (23-45); MEAN CORPUSCULAR HGB 27.8 UUG (26-34); MEAN CORPUSCULAR HGB CONC(MCHC 31.6 GM/DL (31-37); MEAN CORPUSCULAR VOLUME 87.9 UM3 (80-100); MONOCYTES # (AUTO) 0.8 T/MM3 (0-0.8); MONOCYTES % (AUTO) 8.8 % (0-9.0); NEUTROPHILS #(AUTO)-ABSOLUTE 5.9 T/MM3 (1.8-7.7); NEUTROPHILS % (AUTO) 68.3 % (33-66); RED BLOOD COUNT 4.72 M/MM3 (4.00-5.20); WBC - WHITE BLOOD COUNT 8.6 T/MM3 (4.5-11.0)
--- OUTSIDE RECORDS SUMMARY | 2016-08-29 11:33 | XMS REPORT | Continuity of Care Document ---
Author Author [facility] Organization [facility] Address Unknown Phone Unavailable Support Name Relationship Address Phone JES SIEGEL MD Caregiver [address] [place] [address] [place] [address] PEDRO LIU MD Caregiver [address] [place] [address] [place] [phone] JUNA CLARK MD Caregiver [address] [place] [phone] DARLEEN LAWTON Next Of Kin [address] [place] [address] Insurance Providers Payer Name Policy Number Subscriber Name Relationship Medicare [id number] Aurelia Duran 16 Self [facility] [id number] Aurelia Duran 16 Self Advance Directives Directive [...] PO TWICE A DAY 08/05/13 Active Fish Oil/Ada-3 Fatty Acids 1 Cap PO TWICE A [...] of your legs. 3.During office hours, call [phone] 4. After hours, please call [facility] at [phone], and have the hydroelectric station operator page your Surgeon IN THE EVENT [...] Hx Influenza Vaccination Y GIVEN 01/11/10 AT [facility] Historical Hx Pneumococcal Vaccination Y GIVEN 01/02/14 AT [facility] Historical Hx Tetanus, Diptheria, Pertussis N UNKNOWN Historical Hx Influenza Vaccination Y GIVEN 01/11/10 AT [facility] Historical Hx Tetanus Diptheria N UNKNOWN Historical [...] F (96.8 - 99.1) Temperature (Calculated Celsius) 35.50844 degrees C (36.0 - 37.3) Temperature Source [...] 01, 2014 9:21pm LAB TEST FORM REQUEST [id number] - Lipase January 08, 2014 12:24pm 136 [...] 12, 2014 5:29am 6.0 % N 0-9.0 BU-Uka-J-Type Natriuretic Peptide January 08, 2014 12:24pm 133 [...] Has specimen been collected/obtained? Y Urine Specific [place] January 08, 2014 3:05pm 1.010 L - [...] 4 DAYS Name: AURELIA DURAN Unit #: [id number] : 1930 Sex: F Loc / Svc: ED DOS: 01/08/14 Signed Report #: [id number] DIAGNOSTIC IMAGING REPORT TYPE OF EXAM: CHEST, [...] procedures. Encounters Encounter Location Date/Time Discharged Inpatient [facility] 01/10/14 9:17am Discharged Inpatient [facility] 01/03/14 10:31am Registered Clinic [facility] 01/01/14 4:18pm Registered [facility] 11/06/13 8:54am Recent Diagnosis Dyspnea on exertion COPD exacerbation Chest pain on exertion Pneumonia Dyspnea on exertion Diastolic CHF, chronic Obesity (BMI 30.0-34.9) Chest pain as manifestation of blood transfusion reaction HTN (hypertension) Elevated serum creatinine Hyponatremia
--- OUTSIDE RECORDS SUMMARY | 2016-08-29 11:33 | XMS REPORT | Continuity of Care Document ---
Author Author [facility] Organization [facility] Address Unknown Phone Unavailable Allergies Medications [...] Status Pt. Type Provider Facility Loc./Unit Complaint [id number] 05/08/2012 05:57:00 2012 10:55:00 DIS Outpatient Jose Hightower MD [facility]
--- OUTSIDE RECORDS SUMMARY | 2016-08-29 11:34 | XMS REPORT | Continuity of Care Document ---
Author Author [facility] Organization [facility] Address Unknown Phone Unavailable Support Name Relationship Address Phone LEVAR DE SANTIAGO MD Caregiver [address] [address] EDUARD CLARK MD Caregiver [address] [place], [place] [phone] LAWTONDARLEEN Next Of Kin [address] [place], [place] [id number] Insurance Providers Payer Name Policy Number Subscriber Name Relationship Medicare [id number] Aurelia Duran 18 Self [facility] [id number] Aurelia Duran 18 Self Advance Directives Directive Response Recorded Date/Time Advanced Directives Type Living Will 10/13/13 1:33pm Ordered Resuscitation Status Full Code, unverified 02/19/14 3:20am Chief Complaint and Reason for Visit Chief Complaint Chest Pain Reason for Visit [id number] Dyspnea on exertion Chest pain on exertion [...] PO TWICE A DAY 08/05/13 Active Fish Oil/Price-3 Fatty Acids 1 Cap PO TWICE A [...] A DAY 02/19/14 Active Sodium Chloride 1 [place] NS NEEDED 02/19/14 Active Clopidogrel Bisulfate 75 [...] Discharge Date 01/12/14 6:00pm Disposition 02 TO [facility] Condition at Discharge Stable Instructions/Education [...] Pneumococcal Vaccination Y GIVEN [place] [facility] Historical Hx Tetanus, Diptheria, Pertussis N UNKNOWN Historical Hx Influenza Vaccination Y JANUARY 2014 Historical Hx Tetanus Diptheria N UNKNOWN Historical Hx Tetanus, Diptheria, Pertussis N UNKNOWN Historical Hx Tetanus Toxoid Vaccination N UNKNOWN Historical Vital Signs Acute Vital Signs Vital Response Date/Time Temperature (Fahrenheit) 96.7 deg F (96.8 - 99.1) Temperature (Calculated Celsius) 35.33546 degrees C (36.0 - 37.3) Temperature Source [...] 01, 2014 9:21pm LAB TEST FORM REQUEST [id number] - Lipase January 08, 2014 12:24pm 136 [...] COMMENT NURSE WILL CALL WHEN PT HERE EP-Ykl-I-Type Natriuretic Peptide January 08, 2014 12:24pm 133 [...] Has specimen been collected/obtained? Y Urine Specific [place] January 08, 2014 3:05pm 1.010 L - [...] 5 DAYS Name: AURELIA DURAN Unit #: [id number] : 1930 Sex: F DISCHARGE SUMMARY Admit Date: 01/10/14 Report #: [id number] General Date Date DATE: 01/12/14 TIME: 14:46 [...] woman who was recently admitted to [facility] for CHF exacerbation. She was discharged on [...] from the hospital. She presented to [facility] ED for evaluation. There, lab and imaging [...] CM did get them set up with [facility]. She was instructed to f/u with [...] Mg PO ACB 10/13/13 Gabapentin 300 Mg Maiovko333 Mg PO BID 10/13/13 Furosemide (Lasix)40 Mg Azascf30 Mg PO DAILY 10/13/13 Loratadine 10 Mg Yyzpob34 Mg PO DAILY 08/05/13 Fish Oil/Price-3 Fatty Acids (Fish Oil 1,000 Mg Softgel)1 Cap Capsule1 Cap PO BID 08/05/13 Calcium Carbonate (Calcium 500)1 Tab Tablet1 Tab PO BID 08/05/13 Antiox#10/Om3/Dha/Epa/Lut/Zeax (I-Caps With Lutein-Price 3 Sfg)1 Each Capsule1 Each PO DAILY 08/05/13 Aspirin 81 Mg Nagzdv45 Mg PO DAILY 08/05/13 Red Yeast Rice 600 Mg Tablet1,200 Mg PO BID 08/05/13 Magnesium Oxide (Magnesium)250 Mg Kouvoj783 Mg PO DAILY 08/05/13 Discharge Disposition stable Copies To 1: EDUARD CLARK MD, CARRIE DO Jan 12, 2014 14:46 Procedures Procedure Status Date Provider(s) ROUTINE VENIPUNCTURE completed 02/12/14 METABOLIC PANEL TOTAL CA completed 02/12/14 COMPLETE CBC W/AUTO DIFF WBC completed 02/12/14 ELECTROCARDIOGRAM TRACING completed 02/12/14 L HRT ARTERY/VENTRICLE ANGIO completed 02/12/14 DASHA DE SANTIAGO MD [id number] ITEM OR SERVICE completed 02/12/14653926"INJECTION, DIPHENHYDRAMINE HCL, UP TO 50 MG" completed 02/12/14808845"INJECTION, HEPARIN SODIUM, PER 1000 UNITS" completed 02/12/14742285"INJECTION, HEPARIN SODIUM, PER 1000 UNITS" completed 02/12/14315509"INJECTION, MIDAZOLAM HYDROCHLORIDE, PER 1 MG" completed 02/12/14006386"INJECTION, METHYLPREDNISOLONE SODIUM SUCCINATE, UP TO completed 003"INJECTION, FENTANYL CITRATE, 0.1 MG" completed 02/12/14139466RCCLIZXBTHFY DRUGS completed 02/12/14954487"INFUSION, NORMAL SALINE SOLUTION , 1000 CC" completed 02/12/14153717"LOW OSMOLAR CONTRAST MATERIAL, 300-399 MG/ML IODINE C completed Encounters Encounter Location Date/Time Departed [facility] 02/19/14 5:57am Departed [facility] 02/12/14 8:06am Registered Clinic [facility] 01/29/14 9:54am Discharged Inpatient [facility] 01/10/14 9:17am Discharged Inpatient [facility] 01/03/14 10:31am Registered Clinic [facility] 01/01/14 4:18pm
--- OUTSIDE RECORDS SUMMARY | 2016-08-29 11:34 | XMS REPORT | Continuity of Care Document ---
Author Author [facility] Organization [facility] Address Unknown Phone Unavailable Support Name Relationship Address Phone EDUARD CLARK MD Caregiver [address] [facility] [place] [phone] SONDRA BERGERON MD Caregiver [address] [place] [address] DARLEEN LAWTON Next Of Kin Unknown [phone] Insurance Providers Payer Name Policy Number Subscriber Name Relationship Medicare [id number] Aurelia Duran 18 Self [facility] [id number] [place] 18 Self Advance Directives Directive Response Recorded [...] PO TWICE A DAY 08/05/13 Active Fish Oil/[place]-3 Fatty Acids 1 Cap PO TWICE A [...] F (96.8 - 99.1) Temperature (Calculated Celsius) 36.06015 degrees C (36.0 - 37.3) Pulse Rate [...] Has specimen been collected/obtained? Y Urine Specific [place] August 05, 2013 1:55pm <=1.005 L - [...] Encounters Encounter Location Date/Time Departed Emergency Room [facility] 10/13/13 1:28pm Departed Emergency Room [facility] 08/05/13 12:39pm Recent Diagnosis
--- OUTSIDE RECORDS SUMMARY | 2016-08-29 11:34 | XMS REPORT | Continuity of Care Document ---
Author Author [facility] Organization [facility] Address Unknown Phone Unavailable Support Name Relationship Address Phone DASHA DE SANTIAGO MD Caregiver [address] [place] [place] [phone] EDUARD CLARK MD Caregiver [address] [place] [phone] DARLEEN LAWTON Next Of Kin [address] [place] [phone] Insurance Providers Payer Name Policy Number Subscriber Name Relationship Medicare [id number] Aurelia Duran 18 Self [facility] [id number] Aurelia Duran 18 Self Advance Directives Directive Response Recorded Date/Time Advanced Directives Type Living Will 10/13/13 1:33pm Ordered Resuscitation Status Full Code, unverified 02/12/14 8:44am Resuscitation Documents on File No 02/12/14 8:30am Chief Complaint and Reason for Visit Chief Complaint Chest Pain Reason for Visit [id number] Dyspnea on exertion Chest pain on exertion [...] PO TWICE A DAY 08/05/13 Active Fish Oil/[place]-3 Fatty Acids 1 Cap PO TWICE A [...] Discharge Date 01/12/14 6:00pm [facility] Condition at Discharge Stable Instructions/Education Provided [...] Hx Pneumococcal Vaccination Y GIV[place]02[place]14 [place] [facility] Historical [...] F (96.8 - 99.1) Temperature (Calculated Celsius) 35.82472 degrees C (36.0 - 37.3) Temperature Source [...] 01, 2014 9:21pm LAB TEST FORM REQUEST [id number] - Lipase January 08, 2014 12:24pm 136 [...] COMMENT NURSE WILL CALL WHEN PT HERE YO-Pyg-L-Type Natriuretic Peptide January 08, 2014 12:24pm 133 [...] Has specimen been collected/obtained? Y Urine Specific [place] January 08, 2014 3:05pm 1.010 L - [...] 5 DAYS Name: AURELIA DURAN Unit #: [id number] : 1930 Sex: F DISCHARGE SUMMARY Admit Date: 01/10/14 Report #: [id number] General Date Date DATE: 01/12/14 TIME: 14:46 [...] old woman who was recently admitted [place] [facility] [place]. She [...] home from the hospital. She presented [place] [facility] [place] for [place]. There, [...] CM did get them set up with [facility]. She was instructed to f/u with [...] Mg PO ACB 10/13/13 Gabapentin 300 Mg Xwyfjqw960 Mg PO BID 10/13/13 Furosemide (Lasix)40 Mg Hyjwxy40 Mg PO DAILY 10/13/13 Loratadine 10 Mg Egcbmz81 Mg PO DAILY 08/05/13 Fish Oil/[place]-3 Fatty Acids (Fish Oil 1,000 Mg Softgel)1 Cap Capsule1 Cap PO BID 08/05/13 Calcium Carbonate (Calcium 500)1 Tab Tablet1 Tab PO BID 08/05/13 Antiox#10/Om3/Dha/Epa/Lut/Zeax (I-Caps With Lutein-[place] 3 Sfg)1 Each Capsule1 Each PO DAILY 08/05/13 Aspirin 81 Mg Vvogpk36 Mg PO DAILY 08/05/13 Red Yeast Rice 600 Mg Tablet1,200 Mg PO BID 08/05/13 Magnesium Oxide (Magnesium)250 Mg Djfnis509 Mg PO DAILY 08/05/13 Discharge Disposition stable Copies To 1: EDUARD CLARK MD, CARRIE DO Jan 12, 2014 14:46 Procedures No known history of procedures. Encounters Encounter Location Date/Time Departed [facility] 02/12/14 8:06am Registered [facility] 01/29/14 9:54am Discharged Inpatient [facility] 01/10/14 9:17am Discharged Inpatient [facility] 01/03/14 10:31am Registered [facility] 01/01/14 4:18pm
--- OUTSIDE RECORDS SUMMARY | 2016-08-29 11:35 | XMS REPORT | Continuity of Care Document ---
Author Author [facility] Organization [facility]IVE Address Unknown Phone Unavailable Support Name Relationship Address Phone MAGNUS BACK MD Caregiver [address] [place] [address] [address] [place] [phone] ОЛЬГА JOHNSON FACS, MD Caregiver [address] [place] [address] [address] [place] [phone] PEDRO LIU MD Caregiver [address] [place] [address] [place] [phone] EDUARD CLARK MD Caregiver [address] [place] [address] [place] [phone] DARLEEN LAWTON Next Of Kin [address] [place] [address] Insurance Providers Payer Name Policy Number Subscriber Name Relationship Medicare [id number] Aurelia Duran 18 Self [facility] [id number] Aurelia Duran 18 Self Advance Directives Directive [...] perforation Closed rib fracture Dyslipidemia History of HI (myocardial infarction) Allergic rhinitis Osteoarthritis Back pain [...] ~04/02/2014 Active Dyslipidemia Unknown Active History of HI (myocardial infarction) Unknown Active Allergic rhinitis Unknown [...] PO TWICE A DAY 08/05/13 Active Fish Oil/[place]-3 Fatty Acids 1 Cap PO TWICE A [...] A DAY 02/19/14 Active Sodium Chloride 1 [place] NS NEEDED 02/19/14 Active Clopidogrel Bisulfate 75 [...] have difficulty breathing. During office hours, call [phone]. After hours, please call [facility] at [phone] and have the conditioning machine operator page Dr. Pretty or the covering surgeon. *In the event of an emergency, seek medical care at the nearest emergency room.* Condition at time of discharge: Good Plan of Care Discharge Date 04/11/14 4:35pm Disposition 06 HOME HEALTH SERVICE Instructions/Education Provided [facility] Congestive Heart Failure DI for Diverticulitis Prescriptions [...] F (96.8 - 99.1) Temperature (Calculated Celsius) 35.80506 degrees C (36.0 - 37.3) Temperature Source [...] 01, 2014 9:21pm LAB TEST FORM REQUEST [id number] - Large Platelets April 08, 2014 4:37am [...] 10, 2014 5:05am 13.4 % H 0-9.0 QY-Olp-S-Type Natriuretic Peptide April 02, 2014 8:46am 438 [...] Has specimen been collected/obtained? Y Urine Specific [place] April 02, 2014 9:05am 1.010 L - [...] 5 DAYS Name: AURELIA DURAN Unit #: [id number] : 1930 Sex: F DISCHARGE SUMMARY Admit Date: 04/02/14 Report #: [id number] General Date Date DATE: 04/11/14 TIME: 14:18 Attending Physician Magnus Back MD Admitting Physician Magnus Back MD Consulting Physician [facility] Dr Johnson Admitting Diagnosis (1) Syncope Status: Acute (2) Diverticulitis of large intestine with perforation Status: Acute (3) Respiratory insufficiency Status: Acute Assessment & Plan: present on admission (4) Closed rib fracture Onset Date: ~ 04/02/2014 Status: Acute Assessment & Plan: kuit30iu rib (5) Bradycardia Status: Acute Assessment & [...] Urge incontinence Status: Chronic (22) History of HI (myocardial infarction) Status: Chronic (23) Dyslipidemia Status: [...] 84 year old female who presented to [facility] ED today, 04/02/14, via EMS for severe low back pain after falling at home. She reports that she remembers going to bed last night and then woke up this morning on the floor. She pushed her emergency button to alert EMS who responded and transported her to [facility] ED. Upon arrival to the ED she [...] ~ 04/02/2014 Status: Acute Assessment & Plan: lney20oj rib (5) Bradycardia Status: Resolved Assessment & [...] (18) Diabetes Status: Chronic (19) History of HI (myocardial infarction) Status: Chronic (20) Dyslipidemia Status: Chronic DVT Prophylaxis: SCD'S GI Prophylaxis: Protonix Code Status Full Code Home Meds Active Scripts Polyethylene Glycol 3350 17 Gm Powd.pack1 Packet PO DAILY 30 Days Prov:OSCAR MCCORMICK DO 04/11/14 Ciprofloxacin HCl (Cipro)500 Mg Yrkeln191 Mg PO Q12HR 10 Days Prov:OSCAR MCCORMICK DO 04/11/14 Hydrocodone/Acetaminophen (Hydrocodon-Acetaminophen 5-325)1 Tab Tablet1 Tab PO Q4H PRN (PAIN) #30 TAB Prov:OSCAR MCCORMICK DO 04/11/14 Metronidazole (Flagyl)500 Mg Kdzfqn408 Mg PO Q12HR 10 Days Prov:OSCAR MCCORMICK DO 04/11/14 Clopidogrel Bisulfate (Plavix)75 Mg Azjadm18 Mg PO DAILY #30 Ref 11 Prov:LEVAR DE SANTIAGO MD 02/19/14 Potassium Chloride 20 Meq Tablet.er20 Meq PO BIDWM #0 TAB Take 1 tablet, by mouth, two times a day with meals. Prov:DASHA DE SANTIAGO MD 02/12/14 Enalapril Maleate 10 Mg Tablet1 Tab PO BID #60 TAB Prov:OSCAR MCCORMICK DO 01/03/14 Reported Medications Sodium Chloride (Saline Nasal [place])30 Ml Spray1 [place] NS PRN 02/19/14 Guaifenesin 400 Mg Tablet1 [...] Mg PO ACB 10/13/13 Gabapentin 300 Mg Zhripht958 Mg PO BID 10/13/13 Furosemide (Lasix)40 Mg Tkpqii86 Mg PO DAILY RESTART ON FEB 14. 10/13/13 Loratadine 10 Mg Aexvtq95 Mg PO DAILY 08/05/13 Fish Oil/[place]-3 Fatty Acids (Fish Oil 1,000 Mg Softgel)1 Cap Capsule1 Cap PO BID 08/05/13 Calcium Carbonate (Calcium 500)1 Tab Tablet1 Tab PO BID 08/05/13 Antiox#10/Om3/Dha/Epa/Lut/Zeax (I-Caps With Lutein-[place] 3 Sfg)1 Each Capsule1 Each PO DAILY 08/05/13 Aspirin 81 Mg Cpbsrt55 Mg PO DAILY 08/05/13 Red Yeast Rice 600 Mg Tablet1,200 Mg PO BID 08/05/13 Magnesium Oxide (Magnesium)250 Mg Qhvlxx293 Mg PO DAILY 08/05/13 Discharge Disposition stable [...] ANGIO completed 02/12/14 DASHA DE SANTIAGO MD [id number] ITEM OR SERVICE completed 02/12/14230838"INJECTION, DIPHENHYDRAMINE HCL, UP TO 50 MG" completed 02/12/14"INJECTION, HEPARIN SODIUM, PER 1000 UNITS" completed 02/12/14"INJECTION, HEPARIN SODIUM, PER 1000 UNITS" completed 02/12/14"INJECTION, MIDAZOLAM HYDROCHLORIDE, PER 1 MG" completed 02/12/14"INJECTION, METHYLPREDNISOLONE SODIUM SUCCINATE, UP TO completed "INJECTION, FENTANYL CITRATE, 0.1 MG" completed 02/12/14366069QEORNJRRGDLM DRUGS completed 02/12/14"INFUSION, NORMAL SALINE SOLUTION , 1000 CC" completed 02/12/14"LOW OSMOLAR CONTRAST MATERIAL, 300-399 MG/ML IODINE C completed ROUTINE VENIPUNCTURE completed 02/19/14 METABOLIC PANEL TOTAL CA completed 02/19/14 BL SMEAR W/DIFF WBC COUNT completed 02/19/14 COMPLETE CBC AUTOMATED completed 02/19/14 [id number] ITEM OR SERVICE completed 02/19/14 [id number] ITEM OR SERVICE completed 02/19/14 [id number] ITEM OR SERVICE completed 02/19/14 [id number] ITEM OR SERVICE completed 02/19/14857680"CLOSURE DEVICE, VASCULAR (IMPLANTABLE/INSERTABLE)" completed 02/19/14707256QDQVU WIRE completed 02/19/14"STENT, COATED/COVERED, WITH DELIVERY SYSTEM" completed 02/19/14"CATHETER, GUIDING (MAY INCLUDE INFUSION/PERFUSION CAP completed [id number] THAN PEEL-AWAY completed 02/19/14 completed 02/19/14 LEVAR DE SANTIAGO MD [id number]"INJECTION, HEPARIN SODIUM, PER 1000 UNITS" completed 02/19/14"INJECTION, HEPARIN SODIUM, PER 1000 UNITS" completed 02/19/14"INJECTION, MIDAZOLAM HYDROCHLORIDE, PER 1 MG" completed 02/19/14"INJECTION, FENTANYL CITRATE, 0.1 MG" completed 02/19/14"INFUSION, NORMAL SALINE SOLUTION , 1000 CC" completed 02/19/14"LOW OSMOLAR CONTRAST MATERIAL, 300-399 MG/ML IODINE C completed Encounters Encounter Location Date/Time Discharged Inpatient [facility] 04/02/14 8:47am Departed Clinic [facility] 02/19/14 5:57am Departed Clinic [facility] 02/12/14 8:06am Registered Clinic [facility] 01/29/14 9:54am Discharged Inpatient [facility] 01/10/14 9:17am Recent Diagnosis Diabetes Urge incontinence History of cirrhosis Bradycardia Diverticulitis of large intestine with perforation Closed rib fracture Dyslipidemia History of HI (myocardial infarction) Allergic rhinitis Osteoarthritis Back pain Respiratory insufficiency Syncope Injury of jaw Low back pain Diverticulitis of large intestine with perforation Fall
--- OUTSIDE RECORDS SUMMARY | 2016-08-29 11:35 | XMS REPORT | Continuity of Care Document ---
Author Author [facility] Organization [facility] Address Unknown Phone Unavailable Support Name Relationship Address Phone JACE OSCAR DO Caregiver [address] [place] [address] EDUARD CLARK MD Caregiver [address] [place] [phone] DARLEEN LAWTON Next Of Kin Unknown [phone] Insurance Providers Payer Name Policy Number Subscriber Name Relationship Medicare [id number] RogerAurelia 18 Self [facility] [id number] Aurelia Duran 18 Self Advance Directives Directive [...] PO TWICE A DAY 08/05/13 Active Fish Oil/[place]-3 Fatty Acids 1 Cap PO TWICE A [...] AT 1:00PM FOR ECHOCARDIOGRAM. CHECK IN AT [facility] REGISTRATION ON 01/15/14 AT 8:30AM FOR [...] BECOMES DISLODGED OR WET Durable Medical Equipment: [employer] [phone] Notify Physician If: CALL YOUR SURGEON IF: [...] and call Dr. Camarillo with the result [phone]. Condition at time of discharge: Good Plan of Care Discharge Date 01/03/14 3:55pm Disposition 01 DISCHARGED HOME, SELF-CARE Instructions/Education Provided [facility] [place]est[place] Prescriptions See [...] Y GIV[place]02[place] [facility] [place] Hx Influenza Vaccination No Historical Vital Signs Acute Vital Signs Vital Response Date/Time Temperature (Fahrenheit) 98.9 deg F (96.8 - 99.1) Temperature (Calculated Celsius) 37.89851 degrees C (36.0 - 37.3) Temperature Source [...] 02, 2014 5:13am 10.4 % H 0-9.0 FD-Jvn-T-Type Natriuretic Peptide January 02, 2014 5:13am 244 [...] REFLEXHas specimen been collected/obtained? Y Urine Specific [place] January 01, 2014 8:10pm <=1.005 L - [...] DN 4.5-11.0 Name: AURELIA DURAN Unit #: [id number] : 1930 Sex: F DISCHARGE SUMMARY Admit Date: 01/03/14 Report #: [id number] General Date Date DATE: 01/03/14 TIME: 14:50 [...] 83-year-old female who was brought to the [facility] to see Dr. Min for increasing [...] TAB Prov:OSCAR BROWN DO 01/03/14 Hydrocodone Bit/Acetaminophen ([place] 5/325 Tablet)1 Tab Tablet1-2 Tab PO Q4-6H PRN (PAIN) #20 TAB Prov:SIA CARBONE 10/13/13 Reported Medications Tramadol Hcl 50 Mg Ujjuzc36 Mg PO PRN 10/13/13 Tolterodine Tartrate (Detrol La)4 Mg Cap.sr.24h4 Mg PO DAILY 10/13/13 Budesonide/Formoterol Fumarate (Symbicort 160-4.5 Mcg Inhaler)10.2 Gm Hfa.aer.ad10.2 Gm IH DAILY 10/13/13 Potassium Chloride 10 Meq Capsule.sa10 Meq PO BID 10/13/13 Iron Ps Cmplx/Vit B12/Fa (Poly-Iron 150 Forte Capsule)1 Udcap Capsule1 Udcap PO BID 10/13/13 Omeprazole (Prilosec)40 Mg Capsule.dr40 Mg PO ACB 10/13/13 Gabapentin 300 Mg Lkwfbwt687 Mg PO BID 10/13/13 Furosemide (Lasix)40 Mg Tqkhzp56 Mg PO DAILY 10/13/13 Loratadine 10 Mg Bioqwe59 Mg PO DAILY 08/05/13 Fish Oil/[place]-3 Fatty Acids (Fish Oil 1,000 Mg Softgel)1 Cap Capsule1 Cap PO BID 08/05/13 Calcium Carbonate (Calcium 500)1 Tab Tablet1 Tab PO BID 08/05/13 Antiox#10/Om3/Dha/Epa/Lut/Zeax (I-Caps With Lutein-[place] 3 Sfg)1 Each Capsule1 Each PO DAILY 08/05/13 Aspirin 81 Mg Bftutl70 Mg PO DAILY 08/05/13 Red Yeast Rice 600 Mg Tablet1,200 Mg PO BID 08/05/13 Magnesium Oxide (Magnesium)250 Mg Pobqew791 Mg PO DAILY 08/05/13 Discontinued Reported Medications [...] procedures. Encounters Encounter Location Date/Time Discharged Inpatient [facility] 01/03/14 10:31am Registered Clinic [facility] 01/01/14 4:18pm Registered Clinic [facility] 11/06/13 8:54am Departed Emergency Room [facility] 10/13/13 1:28pm Recent Diagnosis CHF exacerbation A-fib Asthma with COPD CAD (coronary artery disease) Diabetes GERD (gastroesophageal reflux disease) Insomnia Urge incontinence Sleep apnea Glaucoma Depression History of cirrhosis
[2016-08-29 11:42] LABS: PTT 29.9 SEC (24-36)
[2016-08-29 11:43] LABS: ALBUMIN/GLOBULIN RATIO 1.4 RATIO (1.1-2.2); ALKALINE PHOSPHATASE 78 U/L (38-126); ALT (SGPT) 30 U/L (9-52); ANION GAP 10 MEQ/L (5-15); AST (SGOT) 19 U/L (14-36); BUN/CREATININE RATIO 9 RATIO (6-26); CALCIUM 9.4 MG/DL (8.4-10.2); CHLORIDE 107 MEQ/L (98-107); CO2 - CARBON DIOXIDE 29 MEQ/L (22-30); CREATININE 0.9 MG/DL (0.7-1.2); GLOMERULAR FILTRATION RATE 59; GLUCOSE 103 MG/DL (65-110); POTASSIUM 4.5 MEQ/L (3.6-5); SODIUM 146 MEQ/L (134-144); TOTAL PROTEIN 6.8 G/DL (6.3-8.2)
--- NOTE | 2016-08-29 11:47 | DI ---
Indication: ITS.REASON: ams PROCEDURE: CT HEAD W/O CONTRAST: Encounter: Initial Comparison: August 19, 2016 Technique: Axial CT images through the head were performed without contrast. Iterative Reconstruction dose reducing technique was utilized. FINDINGS: Moderate to severe atrophy. The ventricles are unchanged. There are extensive areas of low attenuation in the white matter which most likely represent changes from chronic microvascular ischemia. 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 The brainstem, cerebellum, and cerebral hemispheres otherwise have a normal morphology and CT attenuation. There is no evidence of midline displacement. No hemorrhage, signs of acute territorial stroke, mass effect, mass lesions, or edema is evident. The visualized portions of the skull base, midface, and calvarium demonstrate no abnormality. The paranasal sinuses are well aerated and free of significant disease. The tympanic and mastoid cavities appear normal. IMPRESSION: No acute intracranial abnormality or hemorrhage. There is a preliminary report by virtual radiologic. .
[2016-08-29 12:01] LABS: BLOOD, URINE NEGATIVE (NEGATIVE); COLOR,URINE YELLOW (YELLOW); LEUKOCYTE ESTERASE ,URINE NEGATIVE (NEGATIVE); NITRITE,URINE NEGATIVE (NEGATIVE); UROBILINOGEN,URINE 0.2 EU/DL (NORMAL)
--- NOTE | 2016-08-29 12:01 | NUR ---
Comfort Warm blanket provided, pt is asked "is that alright?" and answers "yeah".
--- OUTSIDE RECORDS SUMMARY | 2016-08-29 12:22 | XMS REPORT | Continuity of Care Document ---
Author Author [facility] Organization [facility] Address Unknown Phone Unavailable Support Name Relationship Address Phone JES SIEGEL MD Caregiver [address] [place] [address] [place] [address] PEDRO LIU MD Caregiver [address] [place] [address] [place] [phone] JUAN CLARK MD Caregiver [address] [place] [phone] DARLEEN LAWTON Next Of Kin [address] [place] [address] Insurance Providers Payer Name Policy Number Subscriber Name Relationship Medicare [id number] Aurelia Duran 16 Self [facility] [id number] Aurelia Duran 16 Self Advance Directives Directive [...] PO TWICE A DAY 08/05/13 Active Fish Oil/[place]-3 Fatty Acids 1 Cap PO TWICE A [...] of your legs. 3.During office hours, call [phone] 4. After hours, please call [facility] at [phone], and have the container packer operator page your Surgeon IN THE EVENT [...] Influenza Vaccination Y GIVEN 01/11/10 AT [facility] Historical Hx Pneumococcal Vaccination Y GIVEN 01/02/14 AT [facility] Historical Hx Tetanus, Diptheria, Pertussis N UNKNOWN Historical Hx Influenza Vaccination Y GIVEN 01/11/10 AT [facility] Historical Hx Tetanus Diptheria [...] F (96.8 - 99.1) Temperature (Calculated Celsius) 35.37057 degrees C (36.0 - 37.3) Temperature Source [...] 01, 2014 9:21pm LAB TEST FORM REQUEST [id number] - Lipase January 08, 2014 12:24pm 136 [...] 12, 2014 5:29am 6.0 % N 0-9.0 OT-Psk-T-Type Natriuretic Peptide January 08, 2014 12:24pm 133 [...] Has specimen been collected/obtained? Y Urine Specific [place] January 08, 2014 3:05pm 1.010 L - [...] 4 DAYS Name: AURELIA DURAN Unit #: [id number] : 1930 Sex: F Loc / Svc: ED DOS: 01/08/14 Signed Report #: [id number] DIAGNOSTIC IMAGING REPORT TYPE OF EXAM: CHEST, [...] procedures. Encounters Encounter Location Date/Time Discharged Inpatient [facility] 01/10/14 9:17am Discharged Inpatient [facility] 01/03/14 10:31am Registered Clinic [facility] 01/01/14 4:18pm Registered [facility] 11/06/13 8:54am Recent Diagnosis Dyspnea on exertion COPD exacerbation Chest pain on exertion Pneumonia Dyspnea on exertion Diastolic CHF, chronic Obesity (BMI 30.0-34.9) Chest pain as manifestation of blood transfusion reaction HTN (hypertension) Elevated serum creatinine Hyponatremia
--- OUTSIDE RECORDS SUMMARY | 2016-08-29 12:22 | XMS REPORT | Continuity of Care Document ---
Author Author [facility] Organization [facility] Address Unknown Phone Unavailable Allergies Medications Problems [...] Status Pt. Type Provider Facility Loc./Unit Complaint [id number] 05/08/2012 05:57:00 2012 10:55:00 DIS Outpatient Jose Hightower MD [facility]
--- OUTSIDE RECORDS SUMMARY | 2016-08-29 12:22 | XMS REPORT | Continuity of Care Document ---
Author Author [facility] Organization [facility] Address Unknown Phone Unavailable Care Team Providers Care Supply Chain Specialist Name Role Phone Yuval Hoang Primary Care Physician [phone] Source Comments Some departments are not documenting in the electronic medical record. If you do not see the information that you expected, contact Release of Information in the Health Information Management department at [phone] for further assistance in locating additional records.[facility] Active Allergies and Adverse Reactions Allergen Noted Date Severity Reactions Comments Aspartame 09/16/2010 UNKNOWN Contrast Dye Iv, Iodine 09/16/2010 RASH, ITCHING Containing Gluten 09/16/2010 SEE COMMENTS Celiac disease Keflex 09/16/2010 NAUSEA AND VOMITING Lactose 09/16/2010 NAUSEA AND VOMITING Merthiolate (Thimerosal) 09/16/2010 UNKNOWN Penicillins 09/16/2010 SEE COMMENTS Bruising from IM injection Qrgbkgi-Wdi-Rpd Reductase 09/16/2010 UNKNOWN Inhibitors Current Medications Prescription [...]
--- OUTSIDE RECORDS SUMMARY | 2016-08-29 12:23 | XMS REPORT | Continuity of Care Document ---
Author Author [facility] Organization [facility] Address Unknown Phone Unavailable Support Name Relationship Address Phone EDUARD CLARK MD Caregiver [address] [place] [phone] SONDRA BERGERON MD Caregiver [address] [place] [address] DARLEEN LAWTON Next Of Kin Unknown [phone] Insurance Providers Payer Name Policy Number Subscriber Name Relationship Medicare [id number] Aurelia Duran 16 Self [facility] [id number] [place] 18 Self Advance Directives Directive Response Recorded [...] PO TWICE A DAY 08/05/13 Active Fish Oil/[place]-3 Fatty Acids 1 Cap PO TWICE A [...] F (96.8 - 99.1) Temperature (Calculated Celsius) 36.59542 degrees C (36.0 - 37.3) Pulse Rate [...] Has specimen been collected/obtained? Y Urine Specific [place] August 05, 2013 1:55pm <=1.005 L - [...] Encounters Encounter Location Date/Time Departed Emergency Room [facility] 10/13/13 1:28pm Departed Emergency Room [facility] 08/05/13 12:39pm Recent Diagnosis
--- OUTSIDE RECORDS SUMMARY | 2016-08-29 12:23 | XMS REPORT | Continuity of Care Document ---
Author Author [facility] Organization [facility] Address Unknown Phone Unavailable Support Name Relationship Address Phone LEVAR DE SANTIAGO MD Caregiver [address] [address] EDUARD CLARK MD Caregiver [address] [place], [place] [phone] LAWTONDARLEEN Next Of Kin [address] [place], [place] [phone] Insurance Providers Payer Name Policy Number Subscriber Name Relationship Medicare [id number] Aurelia Duran 18 Self [facility] [id number] Aurelia Duran 18 Self Advance Directives Directive Response Recorded Date/Time Advanced Directives Type Living Will 10/13/13 1:33pm Ordered Resuscitation Status Full Code, unverified 02/19/14 3:20am Chief Complaint and Reason for Visit Chief Complaint Chest Pain Reason for Visit [id number] Dyspnea on exertion Chest pain on exertion [...] PO TWICE A DAY 08/05/13 Active Fish Oil/[place]-3 Fatty Acids 1 Cap PO TWICE A [...] A DAY 02/19/14 Active Sodium Chloride 1 [place] NS NEEDED 02/19/14 Active Clopidogrel Bisulfate 75 [...] Discharge Date 01/12/14 6:00pm Disposition 02 TO [facility] Condition at Discharge Stable Instructions/Education Provided [...] Hx Pneumococcal Vaccination Y GIVEN 01/02/14 AT [facility] Historical Hx Tetanus, Diptheria, Pertussis N UNKNOWN Historical Hx Influenza Vaccination Y JANUARY 2014 Historical Hx Tetanus Diptheria N UNKNOWN Historical Hx Tetanus, Diptheria, Pertussis N UNKNOWN Historical Hx Tetanus Toxoid Vaccination N UNKNOWN Historical Vital Signs Acute Vital Signs Vital Response Date/Time Temperature (Fahrenheit) 96.7 deg F (96.8 - 99.1) Temperature (Calculated Celsius) 35.10264 degrees C (36.0 - 37.3) Temperature Source [...] 01, 2014 9:21pm LAB TEST FORM REQUEST [id number] - Lipase January 08, 2014 12:24pm 136 [...] COMMENT NURSE WILL CALL WHEN PT HERE VP-Cml-X-Type Natriuretic Peptide January 08, 2014 12:24pm 133 [...] Has specimen been collected/obtained? Y Urine Specific [place] January 08, 2014 3:05pm 1.010 L - [...] 5 DAYS Name: AURELIA DURAN Unit #: [id number] : 1930 Sex: F DISCHARGE SUMMARY Admit Date: 01/10/14 Report #: [id number] General Date Date DATE: 01/12/14 TIME: 14:46 [...] old woman who was recently admitted to [facility] for CHF exacerbation. She was discharged on [...] home from the hospital. She presented to [facility] ED for evaluation. There, lab and imaging [...] CM did get them set up with [facility]. She was instructed to f/u with [...] Mg PO ACB 10/13/13 Gabapentin 300 Mg Zxxjrxl173 Mg PO BID 10/13/13 Furosemide (Lasix)40 Mg Rtasft47 Mg PO DAILY 10/13/13 Loratadine 10 Mg Ofaomp61 Mg PO DAILY 08/05/13 Fish Oil/[place]-3 Fatty Acids (Fish Oil 1,000 Mg Softgel)1 Cap Capsule1 Cap PO BID 08/05/13 Calcium Carbonate (Calcium 500)1 Tab Tablet1 Tab PO BID 08/05/13 Antiox#10/Om3/Dha/Epa/Lut/Zeax (I-Caps With Lutein-[place] 3 Sfg)1 Each Capsule1 Each PO DAILY 08/05/13 Aspirin 81 Mg Dgvlrc62 Mg PO DAILY 08/05/13 Red Yeast Rice 600 Mg Tablet1,200 Mg PO BID 08/05/13 Magnesium Oxide (Magnesium)250 Mg Iyzxoq170 Mg PO DAILY 08/05/13 Discharge Disposition stable Copies To 1: EDUARD CLARK MD, CARRIE DO Jan 12, 2014 14:46 Procedures Procedure Status Date Provider(s) ROUTINE VENIPUNCTURE completed 02/12/14 METABOLIC PANEL TOTAL CA completed 02/12/14 COMPLETE CBC W/AUTO DIFF WBC completed 02/12/14 ELECTROCARDIOGRAM TRACING completed 02/12/14 L HRT ARTERY/VENTRICLE ANGIO completed 02/12/14 DASHA DE SANTIAGO MD [id number] ITEM OR SERVICE completed 02/12/14126197"INJECTION, DIPHENHYDRAMINE HCL, UP TO 50 MG" completed 02/12/14614324"INJECTION, HEPARIN SODIUM, PER 1000 UNITS" completed 02/12/14963864"INJECTION, HEPARIN SODIUM, PER 1000 UNITS" completed 02/12/14211462"INJECTION, MIDAZOLAM HYDROCHLORIDE, PER 1 MG" completed 02/12/14530482"INJECTION, METHYLPREDNISOLONE SODIUM SUCCINATE, UP TO completed 003"INJECTION, FENTANYL CITRATE, 0.1 MG" completed 02/12/14810246DABYBDCAWBHY DRUGS completed 02/12/14169420"INFUSION, NORMAL SALINE SOLUTION , 1000 CC" completed 02/12/14139890"LOW OSMOLAR CONTRAST MATERIAL, 300-399 MG/ML IODINE C completed Encounters Encounter Location Date/Time Departed [facility] 02/19/14 5:57am Departed [facility] 02/12/14 8:06am Registered Clinic [facility] 01/29/14 9:54am Discharged Inpatient [facility] 01/10/14 9:17am Discharged Inpatient [facility] 01/03/14 10:31am Registered Clinic [facility] 01/01/14 4:18pm
--- OUTSIDE RECORDS SUMMARY | 2016-08-29 12:23 | XMS REPORT | Continuity of Care Document ---
Author Author [facility] Organization [facility] Address Unknown Phone Unavailable Support Name Relationship Address Phone DASHA DE SANTIAGO MD Caregiver [address] [place] [address] [place] [phone] EDUARD CLARK MD Caregiver [address] [place] [phone] DARLEEN LAWTON Next Of Kin [address] [place] [phone] Insurance Providers Payer Name Policy Number Subscriber Name Relationship Medicare [id number] Aurelia Duran 18 Self [facility] [id number] Aurelia Duran 18 Self Advance Directives Directive Response Recorded Date/Time Advanced Directives Type Living Will 10/13/13 1:33pm Ordered Resuscitation Status Full Code, unverified 02/12/14 8:44am Resuscitation Documents on File No 02/12/14 8:30am Chief Complaint and Reason for Visit Chief Complaint Chest Pain Reason for Visit [id number] Dyspnea on exertion Chest pain on exertion [...] PO TWICE A DAY 08/05/13 Active Fish Oil/Tony-3 Fatty Acids 1 Cap PO TWICE A [...] Discharge Date 01/12/14 6:00pm Disposition 02 TO [facility] Condition at Discharge Stable Instructions/Education Provided [...] Hx Pneumococcal Vaccination Y GIVEN 01/02/14 AT [facility] Historical Hx Tetanus, Diptheria, Pertussis N UNKNOWN Historical Hx Influenza Vaccination Y PT UNSURE BELIEVES LAST ONE PASTIN 2012 Historical Hx Tetanus Diptheria N UNKNOWN Historical Hx Tetanus, Diptheria, Pertussis N UNKNOWN Historical Hx Tetanus Toxoid Vaccination N UNKNOWN Historical Vital Signs Acute Vital Signs Vital Response Date/Time Temperature (Fahrenheit) 96.3 deg F (96.8 - 99.1) Temperature (Calculated Celsius) 35.94525 degrees C (36.0 - 37.3) Temperature Source [...] 01, 2014 9:21pm LAB TEST FORM REQUEST [id number] - Lipase January 08, 2014 12:24pm 136 [...] COMMENT NURSE WILL CALL WHEN PT HERE YQ-Bsh-V-Type Natriuretic Peptide January 08, 2014 12:24pm 133 [...] Has specimen been collected/obtained? Y Urine Specific [place] January 08, 2014 3:05pm 1.010 L - [...] 5 DAYS Name: AURELIA DURAN Unit #: [id number] : 1930 Sex: F DISCHARGE SUMMARY Admit Date: 01/10/14 Report #: [id number] General Date Date DATE: 01/12/14 TIME: 14:46 [...] old woman who was recently admitted to [facility] for CHF exacerbation. [...] home from the hospital. She presented to [facility] ED for evaluation. [...] did get them set up with [facility]. She was instructed to f/u with [...] Mg PO ACB 10/13/13 Gabapentin 300 Mg Woprwof357 Mg PO BID 10/13/13 Furosemide (Lasix)40 Mg Ldzhhq22 Mg PO DAILY 10/13/13 Loratadine 10 Mg Xpvmvm14 Mg PO DAILY 08/05/13 Fish Oil/Tony-3 Fatty Acids (Fish Oil 1,000 Mg Softgel)1 Cap Capsule1 Cap PO BID 08/05/13 Calcium Carbonate (Calcium 500)1 Tab Tablet1 Tab PO BID 08/05/13 Antiox#10/Om3/Dha/Epa/Lut/Zeax (I-Caps With Lutein-Tony 3 Sfg)1 Each Capsule1 Each PO DAILY 08/05/13 Aspirin 81 Mg Aiyfyc74 Mg PO DAILY 08/05/13 Red Yeast Rice 600 Mg Tablet1,200 Mg PO BID 08/05/13 Magnesium Oxide (Magnesium)250 Mg Eajnvp055 Mg PO DAILY 08/05/13 Discharge Disposition stable Copies To 1: EDUARD CLARK MD, CARRIE DO Jan 12, 2014 14:46 Procedures No known history of procedures. Encounters Encounter Location Date/Time Departed [facility] 02/12/14 8:06am Registered [facility] 01/29/14 9:54am Discharged Inpatient [facility] 01/10/14 9:17am Discharged Inpatient [facility] 01/03/14 10:31am Registered [facility] 01/01/14 4:18pm
--- OUTSIDE RECORDS SUMMARY | 2016-08-29 12:24 | XMS REPORT | Continuity of Care Document ---
Author Author [facility] Organization [facility] Address Unknown Phone Unavailable Support Name Relationship Address Phone JACE OSCAR DO Caregiver [address] [place] [address] EDUARD CLARK MD Caregiver [address] [place] [phone] DARLEEN LAWTON Next Of Kin Unknown [phone] Insurance Providers Payer Name Policy Number Subscriber Name Relationship Medicare [id number] RogerAurelia 18 Self [facility] [id number] Aurelia Duran 18 Self Advance Directives Directive [...] PO TWICE A DAY 08/05/13 Active Fish Oil/[place]-3 Fatty Acids 1 Cap PO TWICE A [...] AT 1:00PM FOR ECHOCARDIOGRAM. CHECK IN AT [facility] REGISTRATION ON 01/15/14 AT 8:30AM FOR [...] BECOMES DISLODGED OR WET Durable Medical Equipment: [employer] [id number] Notify Physician If: CALL YOUR SURGEON IF: [...] and call Dr. Camarillo with the result [phone]. Condition at time of discharge: Good Plan of Care Discharge Date 01/03/14 3:55pm Disposition 01 DISCHARGED HOME, SELF-CARE Instructions/Education Provided [facility] Congestive Heart Failure Prescriptions See Medications Section Functional Status Query Response Date Recorded Mental Status Alert October 13, 2013 4:56pm Allergies, Adverse Reactions, Alerts Allergen Type Severity Reaction Status Last Updated iodine Allergy Unknown Active 01/02/14 Penicillin Allergy Unknown Active 01/02/14 Cephalexin Allergy Intermediate Active 01/02/14 Immunizations Name Given Type Hx Influenza Vaccination No Historical Hx Pneumococcal Vaccination Y GIVEN 01/02/14 AT [facility] Historical Hx Influenza Vaccination No Historical Vital Signs Acute Vital Signs Vital Response Date/Time Temperature (Fahrenheit) 98.9 deg F (96.8 - 99.1) Temperature (Calculated Celsius) 37.35374 degrees C (36.0 - 37.3) Temperature Source [...] 02, 2014 5:13am 10.4 % H 0-9.0 LO-Mnx-X-Type Natriuretic Peptide January 02, 2014 5:13am 244 [...] REFLEXHas specimen been collected/obtained? Y Urine Specific [place] January 01, 2014 8:10pm <=1.005 L - [...] DN 4.5-11.0 Name: AURELIA DURAN Unit #: [id number] : 1930 Sex: F DISCHARGE SUMMARY Admit Date: 01/03/14 Report #: [id number] General Date Date DATE: 01/03/14 TIME: 14:50 [...] 83-year-old female who was brought to the [facility] to see Dr. Min for [...] TAB Prov:OSCAR BROWN DO 01/03/14 Hydrocodone Bit/Acetaminophen (George 5/325 Tablet)1 Tab Tablet1-2 Tab PO Q4-6H PRN (PAIN) #20 TAB Prov:SIA CARBONE 10/13/13 Reported Medications Tramadol Hcl 50 Mg Ihyfnp91 Mg PO PRN 10/13/13 Tolterodine Tartrate (Detrol La)4 Mg Cap.sr.24h4 Mg PO DAILY 10/13/13 Budesonide/Formoterol Fumarate (Symbicort 160-4.5 Mcg Inhaler)10.2 Gm Hfa.aer.ad10.2 Gm IH DAILY 10/13/13 Potassium Chloride 10 Meq Capsule.sa10 Meq PO BID 10/13/13 Iron Ps Cmplx/Vit B12/Fa (Poly-Iron 150 Forte Capsule)1 Udcap Capsule1 Udcap PO BID 10/13/13 Omeprazole (Prilosec)40 Mg Capsule.dr40 Mg PO ACB 10/13/13 Gabapentin 300 Mg Ktayqea886 Mg PO BID 10/13/13 Furosemide (Lasix)40 Mg Rtibif60 Mg PO DAILY 10/13/13 Loratadine 10 Mg Fprfhm91 Mg PO DAILY 08/05/13 Fish Oil/[place]-3 Fatty Acids (Fish Oil 1,000 Mg Softgel)1 Cap Capsule1 Cap PO BID 08/05/13 Calcium Carbonate (Calcium 500)1 Tab Tablet1 Tab PO BID 08/05/13 Antiox#10/Om3/Dha/Epa/Lut/Zeax (I-Caps With Lutein-[place] 3 Sfg)1 Each Capsule1 Each PO DAILY 08/05/13 Aspirin 81 Mg Gdxpsm37 Mg PO DAILY 08/05/13 Red Yeast Rice 600 Mg Tablet1,200 Mg PO BID 08/05/13 Magnesium Oxide (Magnesium)250 Mg Txqwfj081 Mg PO DAILY 08/05/13 Discontinued Reported Medications [...] procedures. Encounters Encounter Location Date/Time Discharged Inpatient [facility] 01/03/14 10:31am Registered Clinic [facility] 01/01/14 4:18pm Registered Clinic [facility] 11/06/13 8:54am Departed Emergency Room [facility] 10/13/13 1:28pm Recent Diagnosis CHF exacerbation A-fib Asthma with COPD CAD (coronary artery disease) Diabetes GERD (gastroesophageal reflux disease) Insomnia Urge incontinence Sleep apnea Glaucoma Depression History of cirrhosis
--- OUTSIDE RECORDS SUMMARY | 2016-08-29 12:24 | XMS REPORT | Continuity of Care Document ---
Author Author [facility] Organization [facility] Address Unknown Phone Unavailable Support Name Relationship Address Phone MAGNUS BACK MD Caregiver [address] [place] [address] DR [place]AN[place] [phone] ОЛЬГА JOHNSON FACS, MD Caregiver [address] [place] [address] DR [place] [phone] PEDRO LIU MD Caregiver [address] [place] [address] [place] [phone] EDUARD CLARK MD Caregiver [address] [place] [place] [address] [place] [phone] DARLEEN LAWTON Next Of Kin [address] [place] [address] Insurance Providers Payer Name Policy Number Subscriber Name Relationship Medicare [id number] Aurelia Duran 16 Self [facility] [id number] Aurelia Duran 16 Self Advance Directives Directive [...] perforation Closed rib fracture Dyslipidemia History of ME (myocardial infarction) Allergic rhinitis Osteoarthritis Back pain [...] ~04/02/2014 Active Dyslipidemia Unknown Active History of ME (myocardial infarction) Unknown Active Allergic rhinitis Unknown [...] PO TWICE A DAY 08/05/13 Active Fish Oil/Crossroads-3 Fatty Acids 1 Cap PO TWICE A [...] A DAY 02/19/14 Active Sodium Chloride 1 [place] NS NEEDED 02/19/14 Active Clopidogrel Bisulfate 75 [...] have difficulty breathing. During office hours, call [phone]. After hours, please call [facility] at [phone] and have the boom conveyor operator page Dr. Pretty or the covering surgeon. *In the event of an emergency, seek medical care at the nearest emergency room.* Condition at time of discharge: Good Plan of Care Discharge Date 04/11/14 4:35pm Disposition 06 HOME HEALTH SERVICE Instructions/Education Provided [facility] Congestive Heart Failure DI for Diverticulitis Prescriptions [...] Hx Pneumococcal Vaccination Y GIVEN 01/02/14 AT [facility] Historical Hx Tetanus, Diptheria, Pertussis N UNKNOWN Historical Hx Influenza Vaccination Y JANUARY 2014 Historical Hx Tetanus Diptheria N UNKNOWN Historical Hx Tetanus, Diptheria, Pertussis N UNKNOWN Historical Hx Tetanus Toxoid Vaccination N UNKNOWN Historical Vital Signs Acute Vital Signs Vital Response Date/Time Temperature (Fahrenheit) 96.7 deg F (96.8 - 99.1) Temperature (Calculated Celsius) 35.60116 degrees C (36.0 - 37.3) Temperature Source [...] 01, 2014 9:21pm LAB TEST FORM REQUEST [id number] - Large Platelets April 08, 2014 4:37am [...] 10, 2014 5:05am 13.4 % H 0-9.0 LO-Iks-V-Type Natriuretic Peptide April 02, 2014 8:46am 438 [...] Has specimen been collected/obtained? Y Urine Specific [place] April 02, 2014 9:05am 1.010 L - [...] 5 DAYS Name: AURELIA DURAN Unit #: [id number] : 1930 Sex: F DISCHARGE SUMMARY Admit Date: 04/02/14 Report #: [id number] General Date Date DATE: 04/11/14 TIME: 14:18 Attending Physician Magnus Back MD Admitting Physician Magnus Back MD Consulting Physician [facility] Dr Johnson Admitting Diagnosis (1) Syncope Status: Acute (2) Diverticulitis of large intestine with perforation Status: Acute (3) Respiratory insufficiency Status: Acute Assessment & Plan: present on admission (4) Closed rib fracture Onset Date: ~ 04/02/2014 Status: Acute Assessment & Plan: [id number] rib (5) Bradycardia Status: Acute Assessment & [...] Urge incontinence Status: Chronic (22) History of ME (myocardial infarction) Status: Chronic (23) Dyslipidemia Status: [...] 84 year old female who presented to [facility] ED today, 04/02/14, via EMS for severe low back pain after falling at home. She reports that she remembers going to bed last night and then woke up this morning on the floor. She pushed her emergency button to alert EMS who responded and transported her to [facility]. Upon arrival to the ED she [...] ~ 04/02/2014 Status: Acute Assessment & Plan: [id number] rib (5) Bradycardia Status: Resolved Assessment & [...] (18) Diabetes Status: Chronic (19) History of ME (myocardial infarction) Status: Chronic (20) Dyslipidemia Status: Chronic DVT Prophylaxis: SCD'S GI Prophylaxis: Protonix Code Status Full Code Home Meds Active Scripts Polyethylene Glycol 3350 17 Gm Powd.pack1 Packet PO DAILY 30 Days Prov:OSCAR MCCORMICK DO 04/11/14 Ciprofloxacin HCl (Cipro)500 Mg Eyywhl936 Mg PO Q12HR 10 Days Prov:OSCAR MCCORMICK DO 04/11/14 Hydrocodone/Acetaminophen (Hydrocodon-Acetaminophen 5-325)1 Tab Tablet1 Tab PO Q4H PRN (PAIN) #30 TAB Prov:OSCAR MCCORMICK DO 04/11/14 Metronidazole (Flagyl)500 Mg Jpkngl334 Mg PO Q12HR 10 Days Prov:OSCAR MCCORMICK DO 04/11/14 Clopidogrel Bisulfate (Plavix)75 Mg Moahaa59 Mg PO DAILY #30 Ref 11 Prov:LEVAR DE SANTIAGO MD 02/19/14 Potassium Chloride 20 Meq Tablet.er20 Meq PO BIDWM #0 TAB Take 1 tablet, by mouth, two times a day with meals. Prov:DASHA DE SANTIAGO MD 02/12/14 Enalapril Maleate 10 Mg Tablet1 Tab PO BID #60 TAB Prov:OSCAR MCCORMICK DO 01/03/14 Reported Medications Sodium Chloride (Saline Nasal [place])30 Ml Spray1 [place] NS PRN 02/19/14 Guaifenesin 400 Mg Tablet1 [...] Mg PO ACB 10/13/13 Gabapentin 300 Mg Iqgpjux190 Mg PO BID 10/13/13 Furosemide (Lasix)40 Mg Mswgmx06 Mg PO DAILY RESTART ON FEB 14. 10/13/13 Loratadine 10 Mg Rgueuo52 Mg PO DAILY 08/05/13 Fish Oil/Crossroads-3 Fatty Acids (Fish Oil 1,000 Mg Softgel)1 Cap Capsule1 Cap PO BID 08/05/13 Calcium Carbonate (Calcium 500)1 Tab Tablet1 Tab PO BID 08/05/13 Antiox#10/Om3/Dha/Epa/Lut/Zeax (I-Caps With Lutein-Crossroads 3 Sfg)1 Each Capsule1 Each PO DAILY 08/05/13 Aspirin 81 Mg Irxueq83 Mg PO DAILY 08/05/13 Red Yeast Rice 600 Mg Tablet1,200 Mg PO BID 08/05/13 Magnesium Oxide (Magnesium)250 Mg Zureln510 Mg PO DAILY 08/05/13 Discharge Disposition stable [...] ANGIO completed 02/12/14 DASHA DE SANTIAGO MD [id number] ITEM OR SERVICE completed 02/12/14761210"INJECTION, DIPHENHYDRAMINE HCL, UP TO 50 MG" completed 02/12/14"INJECTION, HEPARIN SODIUM, PER 1000 UNITS" completed 02/12/14"INJECTION, HEPARIN SODIUM, PER 1000 UNITS" completed 02/12/14"INJECTION, MIDAZOLAM HYDROCHLORIDE, PER 1 MG" completed 02/12/14"INJECTION, METHYLPREDNISOLONE SODIUM SUCCINATE, UP TO completed "INJECTION, FENTANYL CITRATE, 0.1 MG" completed 02/12/14181003ACIKUUHEYBQT DRUGS completed 02/12/14"INFUSION, NORMAL SALINE SOLUTION , 1000 CC" completed 02/12/14"LOW OSMOLAR CONTRAST MATERIAL, 300-399 MG/ML IODINE C completed ROUTINE VENIPUNCTURE completed 02/19/14 METABOLIC PANEL TOTAL CA completed 02/19/14 BL SMEAR W/DIFF WBC COUNT completed 02/19/14 COMPLETE CBC AUTOMATED completed 02/19/14 [id number] ITEM OR SERVICE completed 02/19/14 [id number] ITEM OR SERVICE completed 02/19/14 [id number] ITEM OR SERVICE completed 02/19/14 [id number] ITEM OR SERVICE completed 02/19/14161566"CLOSURE DEVICE, VASCULAR (IMPLANTABLE/INSERTABLE)" completed 02/19/14380344VOXID WIRE completed 02/19/14"STENT, COATED/COVERED, WITH DELIVERY SYSTEM" completed 02/19/14"CATHETER, GUIDING (MAY INCLUDE INFUSION/PERFUSION CAP completed [id number] THAN PEEL-AWAY completed 02/19/14 completed 02/19/14 LEVAR DE SANTIAGO MD [id number]"INJECTION, HEPARIN SODIUM, PER 1000 UNITS" completed 02/19/14"INJECTION, HEPARIN SODIUM, PER 1000 UNITS" completed 02/19/14"INJECTION, MIDAZOLAM HYDROCHLORIDE, PER 1 MG" completed 02/19/14"INJECTION, FENTANYL CITRATE, 0.1 MG" completed 02/19/14"INFUSION, NORMAL SALINE SOLUTION , 1000 CC" completed 02/19/14"LOW OSMOLAR CONTRAST MATERIAL, 300-399 MG/ML IODINE C completed Encounters Encounter Location Date/Time Discharged Inpatient [facility] 04/02/14 8:47am Departed Clinic [facility] 02/19/14 5:57am Departed Clinic [facility] 02/12/14 8:06am Registered Clinic [facility] 01/29/14 9:54am Discharged Inpatient [facility] 01/10/14 9:17am Recent Diagnosis Diabetes Urge incontinence History of cirrhosis Bradycardia Diverticulitis of large intestine with perforation Closed rib fracture Dyslipidemia History of ME (myocardial infarction) Allergic rhinitis Osteoarthritis Back pain Respiratory insufficiency Syncope Injury of jaw Low back pain Diverticulitis of large intestine with perforation Fall
--- NOTE | 2016-08-29 12:52 | DI ---
Indication: ITS.REASON: ams PROCEDURE: CHEST 1 VIEW: Encounter: Initial Comparison: July 15, 2016 Findings: The lungs are stable in appearance without new focal airspace consolidation. There is no pleural effusion or pneumothorax. The heart size, pulmonary vascularity and mediastinal contours are unchanged. Left pacemaker. IMPRESSION: Stable appearance of the chest without acute cardiopulmonary disease. .
[2016-08-29 13:09] VITALS: BP 197/97; PULSE 67; RESP 16; TEMP 96.3; O2SAT 94
[2016-08-29 13:16] VITALS: Ht 157.5 cm; Wt 77.5 kg
--- NOTE | 2016-08-29 14:30 | HPPDOC ---
NITA CRUZ V VIOLIN TEACHER 08/29/16 1409: HPI - Adult Date DATE: 08/29/16 TIME: 14:03 General Chief Complaint: Altered mental status History of Present Illness Patient is an 86-year-old female who is brought to the emergency room [facility] for evaluation of nonverbal and questionable mental status changes. Although patient has a known history of dementia. She had been less verbal from her baseline this morning. The exact timeline is unclear from jail staff. On arrival to the emergency room further evaluation including upper studies, chest x-ray and CT scan of the head were obtained. CBC was unremarkable, sodium was found to be slightly elevated at 146, however, remaining electrolytes were normal. Troponin undetectable. A urinalysis was obtained that is also unremarkable. Patient is afebrile on arrival. Noted to be slightly hypertensive 197/97 Initially. Chest x-ray showed no acute cardiopulmonary findings, and CT scan of the head showed no acute intracranial abnormality is or hemorrhages. The hospitalist services work contacted by the emergency room physician and requested outpatient admission for further evaluation and treatment including an MRI. On initial examination in the emergency room. Patient is alert. She will follow commands, however, only answers some questions appropriately. She is able to verbalize that her son's name is Shawn. Within approximately 30 minutes she began answering questions. Question whether these were behaviors related to dementia versus acute mental status change. Past Medical History Past Medical History Atrial fibrillation. COPD Asthma Chronic diastolic heart failure Coronary artery disease with history of [place] Dyslipidemia Hypertension Depression Glaucoma with blindness Osteoarthritis Sleep Apnea Dementia Surgical History Patient's Surgical History: Pacemaker Back surgery Cholecystectomy Cardiac stent T&A Current Medications Home Meds Reported Medications Potassium Chloride (Potassium Chloride) 20 Meq Tablet.er, 20 MEQ PO BIDWM for 3 Days starting 08/28/16 08/29/16 Tramadol HCl (Tramadol HCl) 50 Mg Tablet, 25 MG PO HS Y for PAIN 08/19/16 Dextran 70/Hypromellose (Artificial Tears Eye Drops) 15 Ml Drops, 1 DROP OP QID Y for dry eyes 08/19/16 Polyethylene Glycol 3350 (Polyethylene Glycol 3350) 255 Gm Powder, 17 GM PO DAILY Y for CONSTIPATION 08/19/16 Nystatin (Nystatin) 1 Each Powder.ea., 1 APPLIC TOP BID Y for PRN ORDERS 08/19/16 Mag Hydrox/Al Hydrox/Simeth (Alum-Mag Hydroxide-Simeth Liq) 360 Ml Oral.susp, 30 ML PO Q4H Y for EPIGASTRIC DISTRESS 08/19/16 Lorazepam (Lorazepam) 0.5 Mg Tablet, 0.5 MG PO Q6H Y for ANXIETY 08/19/16 Bisacodyl (Bisacodyl) 10 Mg Supp.rect, 1 SUPP RECTALLY DAILY Y for CONSTIPATION 08/19/16 Guaifenesin/Dextromethorphan (Adult Cough Formula Dm Max Liq) 236 Ml Liquid, 10 ML PO Q4H Y for PRN ORDERS 07/31/16 Loratadine (Loratadine) 10 Mg Tablet, 10 MG PO ACB 07/31/16 Diltiazem HCl (Diltiazem 24Hr Cd) 120 Mg Cap.er.24h, 120 MG PO DAILY 07/31/16 Guaifenesin (Guaifenesin ER) 600 Mg Tab.er.12h, 600 MG PO Q12H Y for CONGESTION 07/09/16 Donepezil HCl (Donepezil HCl) 10 Mg Tablet, 10 MG PO HS 07/09/16 Acetaminophen (Acetaminophen) 500 Mg Tablet, 1000 MG PO Q4HR Y for PAIN 07/09/16 Clopidogrel Bisulfate (Clopidogrel) 75 Mg Tablet, 75 MG PO DAILY 07/09/16 Enalapril Maleate (Enalapril Maleate) 10 Mg Tablet, 10 MG PO BID 07/09/16 Gabapentin (Gabapentin) 600 Mg Tablet, 600 MG PO BID 07/09/16 Metoprolol Tartrate (Metoprolol Tartrate) 25 Mg Tablet, 25 MG PO BID 07/09/16 Budesonide/Formoterol Fumarate (Symbicort 160-4.5 Mcg Inhaler) 10.2 Gm Hfa.aer.ad, 2 PUFF INH BID 07/09/16 Calcium Carbonate/Vitamin D3 (Calcium + Vitamin D Tablet) 1 Each Tablet, 1 TAB PO DAILY 11/23/14 Albuterol Sulfate (Proair HFA 90 mcg/actuation) 8.5 Gm Hfa.aer.ad, 2 PUFF INH Q4HR Y for WHEEZING 01/08/14 Latanoprost (Latanoprost) 2.5 Ml Drops, 1 DROP BOTH EYES PM 01/08/14 Omeprazole (Prilosec) 40 Mg Capsule.dr, 20 MG PO ACB 10/13/13 Allergies: Coded Allergies: cephalexin (Verified Allergy, Intermediate, 08/19/16) Penicillins (Verified Allergy, Unknown, 08/19/16) iodine (Verified Allergy, Unknown, 08/19/16) milk (Verified Allergy, Unknown, 08/19/16) gluten (Verified Adverse Reaction, Intermediate, diarrhea, stomach cramps , 08/19/16) Family History Family History: Father- Coronary artery disease, CHF Mother- DM Brother- DM Social History Substance Use Type: does not use Alcohol Intake: none Housing: jail Current Occupational Status: retired Advance Directives: Yes DNR, No DPOA for Healthcare Only Social History Comments PCP Dr Maria Review of Systems Unable to Obtain ROS Due to: clinical condition Comments Unable to obtain accurate review of systems 2nd, patient's mentation Physical Exam General Vital Signs Vital Signs Date Time Temp Pulse Resp B/P Pulse Ox O2 Delivery O2 Flow Rate FiO2 08/29/16 13:09 96.3 67 16 197/97 94 Room Air Height (Feet): 5 Height (Inches): 2.00 Neurologic RN Documented GCS Eye Opening: (4)Spontaneous Verbal: (1)None Motor: (6)Obeys Commands Total: Laboratory Laboratory Tests Test 08/29/16 11:01 08/29/16 11:24 08/29/16 11:54 Glucometer 95mg/dL White Blood Count 8.6T/MM3 Red Blood Count 4.72M/MM3 Hemoglobin 13.1GM/DL Hematocrit 41.5% Mean Corpuscular Volume 87.9UM3 Mean Corpuscular Hemoglobin 27.8UUG Mean Corpuscular Hemoglobin Concent 31.6GM/DL RDW Standard Deviation 49.3FL Platelet Count 278T/MM3 Mean Platelet Volume 11.0UM3 Immature Granulocyte % (Auto) 0.2% Neutrophils (%) (Auto) 68.3% Lymphocytes (%) (Auto) 19.4% Monocytes (%) (Auto) 8.8% Eosinophils (%) (Auto) 2.6% Basophils (%) (Auto) 0.7% Absolute Immature Granulocyte (auto 0.02T/MM3 Absolute Neutrophils (auto) 5.9T/MM3 Absolute Lymphocytes (auto) 1.7T/MM3 Absolute Monocytes (auto) 0.8T/MM3 Absolute Eosinophils (auto) 0.2T/MM3 Absolute Basophils (auto) 0.1T/MM3 Prothromb Time International Ratio 1.00 Activated Partial Thromboplast Time 29.9SEC Turbidity < 20 Sodium Level 146MEQ/L Potassium Level 4.5MEQ/L Chloride Level 107MEQ/L Carbon Dioxide Level 29MEQ/L Anion Gap 10MEQ/L Blood Urea Nitrogen 8.0MG/DL Creatinine 0.9MG/DL Glomerular Filtration Rate Calc 59 BUN/Creatinine Ratio 9RATIO Glucose Level 103MG/DL Calculated Osmolality 279MOSM/KG Calcium Level 9.4MG/DL Total Bilirubin 0.60MG/DL Icterus Index < 2 Aspartate Amino Transf (AST/SGOT) 19U/L Alanine Aminotransferase (ALT/SGPT) 30U/L Alkaline Phosphatase 78U/L Troponin I < 0.012ng/ml Total Protein 6.8G/DL Albumin 4.0G/DL Globulin 2.8G/DL Albumin/Globulin Ratio 1.4RATIO Chemistry Specimen Hemolysis < 15 Urine Collection Type Cleancatch-midstream Urine Color Yellow Urine Turbidity Clear Urine pH 7.5 Urine Specific [place] 1.010 Urine Protein Negative Urine Glucose (UA) Negative Urine Ketones Negative Urine Blood Negative Urine Nitrite Negative Urine Bilirubin Negative Urine Urobilinogen 0.2EU/DL Urine Leukocyte Esterase Negative Urinalysis Comment Microscopic not ind. Assessment & Plan Problems: (1) Altered awareness, transient Status: Acute (2) Dementia Status: Chronic (3) CAD (coronary artery disease) Status: Chronic (4) Diabetes Status: Chronic (5) A-fib Status: Chronic (6) GERD (gastroesophageal reflux disease) Status: Chronic (7) HTN (hypertension) Status: Chronic (8) Asthma with COPD Status: Chronic (9) Dyslipidemia Status: Chronic (10) Sleep apnea Status: Chronic (11) History of UT (myocardial infarction) Status: Resolved (12) Low back pain Status: Resolved (13) Obesity (BMI 30.0-34.9) Status: Chronic Plan/Intensity of Service Initially patient was admitted to medical floor as outpatient observation while awaiting call from [facility]. Upon further evaluation of pacemaker MRI could not be performed today. Spoke with network technical analyst regarding pacemaker. The pacemaker would have to be turned off in order to to obtain a and this has to be done during the week. Spoke with Shawn fisher regarding patient's symptoms, labs, CT scan results. Shawn feels that patient has had a ongoing progression of her dementia over the last several weeks to several months. He verbalizes he does not want further testing or evaluation if no acute infectious process has been identified. He requests that patient be sent back to jail. This plan is reviewed with patient and she agree. She is alert and answering questions appropriately. She states "I am fine, my spell is better". Case discussed and plan reviewed with attending Dr Fishman Code Status Full Code Hospital Course Summary Disclaimer The hospital course summary below is not to be considered part of the above Progress Note. DASHA FISHMAN MD 08/30/16 0845: Past Medical History Current Medications Home Meds Reported Medications Potassium Chloride (Potassium Chloride) 20 Meq Tablet.er, 20 MEQ PO BIDWM for 3 Days starting 08/28/16 08/29/16 Tramadol HCl (Tramadol HCl) 50 Mg Tablet, 25 MG PO HS Y for PAIN 08/19/16 Dextran 70/Hypromellose (Artificial Tears Eye Drops) 15 Ml Drops, 1 DROP OP QID Y for dry eyes 08/19/16 Polyethylene Glycol 3350 (Polyethylene Glycol 3350) 255 Gm Powder, 17 GM PO DAILY Y for CONSTIPATION 08/19/16 Nystatin (Nystatin) 1 Each Powder.ea., 1 APPLIC TOP BID Y for PRN ORDERS 08/19/16 Mag Hydrox/Al Hydrox/Simeth (Alum-Mag Hydroxide-Simeth Liq) 360 Ml Oral.susp, 30 ML PO Q4H Y for EPIGASTRIC DISTRESS 08/19/16 Lorazepam (Lorazepam) 0.5 Mg Tablet, 0.5 MG PO Q6H Y for ANXIETY 08/19/16 Bisacodyl (Bisacodyl) 10 Mg Supp.rect, 1 SUPP RECTALLY DAILY Y for CONSTIPATION 08/19/16 Guaifenesin/Dextromethorphan (Adult Cough Formula Dm Max Liq) 236 Ml Liquid, 10 ML PO Q4H Y for PRN ORDERS 07/31/16 Loratadine (Loratadine) 10 Mg Tablet, 10 MG PO ACB 07/31/16 Diltiazem HCl (Diltiazem 24Hr Cd) 120 Mg Cap.er.24h, 120 MG PO DAILY 07/31/16 Guaifenesin (Guaifenesin ER) 600 Mg Tab.er.12h, 600 MG PO Q12H Y for CONGESTION 07/09/16 Donepezil HCl (Donepezil HCl) 10 Mg Tablet, 10 MG PO HS 07/09/16 Acetaminophen (Acetaminophen) 500 Mg Tablet, 1000 MG PO Q4HR Y for PAIN 07/09/16 Clopidogrel Bisulfate (Clopidogrel) 75 Mg Tablet, 75 MG PO DAILY 07/09/16 Enalapril Maleate (Enalapril Maleate) 10 Mg Tablet, 10 MG PO BID 07/09/16 Gabapentin (Gabapentin) 600 Mg Tablet, 600 MG PO BID 07/09/16 Metoprolol Tartrate (Metoprolol Tartrate) 25 Mg Tablet, 25 MG PO BID 07/09/16 Budesonide/Formoterol Fumarate (Symbicort 160-4.5 Mcg Inhaler) 10.2 Gm Hfa.aer.ad, 2 PUFF INH BID 07/09/16 Calcium Carbonate/Vitamin D3 (Calcium + Vitamin D Tablet) 1 Each Tablet, 1 TAB PO DAILY 11/23/14 Albuterol Sulfate (Proair HFA 90 mcg/actuation) 8.5 Gm Hfa.aer.ad, 2 PUFF INH Q4HR Y for WHEEZING 01/08/14 Latanoprost (Latanoprost) 2.5 Ml Drops, 1 DROP BOTH EYES PM 01/08/14 Omeprazole (Prilosec) 40 Mg Capsule.dr, 20 MG PO ACB 10/13/13 Allergies: Coded Allergies: cephalexin (Verified Allergy, Intermediate, 08/19/16) Penicillins (Verified Allergy, Unknown, 08/19/16) iodine (Verified Allergy, Unknown, 08/19/16) milk (Verified Allergy, Unknown, 08/19/16) gluten (Verified Adverse Reaction, Intermediate, diarrhea, stomach cramps , 08/19/16) Assessment & Plan Assessment Seen and examined patient with nurse practitioner Nita Cruz. Patient was engaging in speech and movement intermittently and showing that this is most likely due to volition. She had full range of activity when startled quickly went back to non-receptive behavior. I was disinclined to keep the patient except that neurology had requested further workup. Once LORENA Cruz had had a conversation with the son who is the DPOA, it became apparent that this is all progression of her dementia disease process and her behavioral disorder and she goes through these episodes from time to time. He declined any further workup and as she has implants that are contraindicated to MRI no further workup is required. She need not be observed for any similar circumstance again. She's discharged at this time NITA CRUZ APRN August 29, 2016 14:09 DASHA FISHMAN MD August 30, 2016 08:45
--- NOTE | 2016-08-29 14:58 | PDOCECFAO ---
Admission Orders Admission Orders Admit to: [facility] Allergies: Coded Allergies: cephalexin (Verified Allergy, Intermediate, 08/19/16) Penicillins (Verified Allergy, Unknown, 08/19/16) iodine (Verified Allergy, Unknown, 08/19/16) milk (Verified Allergy, Unknown, 08/19/16) gluten (Verified Adverse Reaction, Intermediate, diarrhea, stomach cramps , 08/19/16) Admitting Diagnosis AMS Admitting Physician Darion Fishman MD Attending Physician Kye Code Status Do Not Resuscitate Anticipated LOS: Greater than 30 days Rehab Potential: Good Rehab Prognosis: Good Diet: Regular Wound/Incision Care: N/S May use Facility Protocol /SO: Yes May Have Flu Vaccine: Yes Not Applicable NITA CRUZ APRN August 29, 2016 14:58
--- NOTE | 2016-08-29 15:02 | NUR ---
admit Pt A/O x3, still mumbles alittle. Pt states voice should be a bit more clear. V/S taken and stable on RA. Pt denies pain. After has seen in med unit, has decided to DC back to [facility] [place] called and transportation arranged. Pt DC to home at 1500, picked by their pack train driver and taken via WC. Pt was dresses and has all her paperwork. IV site DC, cath tip intact.
== END 2016-08-29 14:56 ==
LOC: ED 10:55 → EDHOLD 12:14 → MED 13:03
PROVIDERS: ADMIT Family Medicine; ATTEND Family Medicine
DX: R40.4 Transient alteration of awareness (principal); F03.90 Unspecified dementia, unspecified severity, without behavioral disturbance, psychotic disturbance, mood disturbance, and anxiety; I25.10 Atherosclerotic heart disease of native coronary artery without angina pectoris; E11.36 Type 2 diabetes mellitus with diabetic cataract; E11.40 Type 2 diabetes mellitus with diabetic neuropathy, unspecified; I48.91 Unspecified atrial fibrillation; K21.9 Gastro-esophageal reflux disease without esophagitis; J45.909 Unspecified asthma, uncomplicated; Z66 Do not resuscitate; J44.9 Chronic obstructive pulmonary disease, unspecified; E78.00 Pure hypercholesterolemia, unspecified; G47.30 Sleep apnea, unspecified; I25.2 Old myocardial infarction; M54.5 Low back pain; E66.9 Obesity, unspecified; I10 Essential (primary) hypertension; Z95.5 Presence of coronary angioplasty implant and graft; I50.32 Chronic diastolic (congestive) heart failure; Z87.01 Personal history of pneumonia (recurrent); Z90.49 Acquired absence of other specified parts of digestive tract; Z86.73 Personal history of transient ischemic attack (TIA), and cerebral infarction without residual deficits; G43.909 Migraine, unspecified, not intractable, without status migrainosus; F32.9 Major depressive disorder, single episode, unspecified; Z79.02 Long term (current) use of antithrombotics/antiplatelets; Z79.899 Other long term (current) drug therapy
CPT/HCPCS: 36415; 51701; 70450; 71010; 80053; 81003; 82948; 84484; 85025; 85610; 85730; 93005; 99284; G0378; 99218

== ENCOUNTER 2017-11-16 10:34 | Inpatient (IN) ==
--- NOTE | 2017-11-16 10:37 | Emergency Department Report ---
General Adult HPI - General Stated complaint: dyspnea Time Seen by Provider: 11/16/17 10:37 Source: family, EMS, other ([place] Staff) Mode of arrival: EMS Limitations: altered mental status - History of Present Illness HPI narrative: 87 F who is a do not resuscitate presents to the emergency department for evaluation of altered mental status and potential hypoxia. Patient was at her care facility when her symptoms began. Symptoms have been gradually progressive over the past "couple of days." History is limited secondary to the patient's clinical condition and information is obtained from the family and [facility] staff as well as EMS. She does have a history of dementia but is not able to answer questions currently. - Related Data Home Medications Medication Instructions Recorded Confirmed Albuterol Sulfate [Proair Hfa] 2 puff INH Q4HR PRN #0 01/08/14 11/16/17 Budesonide/Formoterol Fumarate 2 puff INH BID #0 07/09/16 11/16/17 [Symbicort 160-4.5 Mcg Inhaler] Clopidogrel Bisulfate [Clopidogrel] 75 mg PO DAILY #0 07/09/16 11/16/17 Dextran 70/Hypromellose 1 drop EACH EYE QID PRN #0 08/19/16 11/16/17 [Artificial Tears Eye Drops] Mag Hydrox/Aluminum Hyd/Simeth 30 ml PO Q4H PRN #0 08/19/16 11/16/17 [Alum-Mag Hydroxide-Simeth Liq] Nystatin 1 applicatio TOP BID PRN #0 08/19/16 11/16/17 Acetaminophen 650 mg PO Q4H PRN 11/16/17 11/16/17 Acetaminophen [Acetaminophen Extra 1,000 mg PO Q4H PRN 11/16/17 11/16/17 Strength] Albuterol/Ipratropium [Duoneb] 3 ml AEROSOL Q4H PRN 11/16/17 11/16/17 Bisacodyl Supp [Dulcolax] 10 mg RECTALLY DAILY PRN 11/16/17 11/16/17 Calcium 600 + D [Caltrate + D] 1 tab PO DAILY 11/16/17 11/16/17 Donepezil [Aricept 10 mg] 10 mg PO HS 11/16/17 11/16/17 Enalapril [Vasotec] 5 mg PO BID 11/16/17 11/16/17 Gabapentin [Neurontin] 600 mg PO BID 11/16/17 11/16/17 Guaifenesin/Dextromethorphan 10 ml PO Q4H PRN 11/16/17 11/16/17 [Guaifenesin Dm Syrup] Hydrocortisone 2.5% Cream 1 applicatio RECTALLY BID PRN 11/16/17 11/16/17 [Anusol-Hc 2.5% Cream] LORazepam [Ativan] 0.5 mg PO Q6H PRN 11/16/17 11/16/17 Latanoprost 1 drop EACH EYE PM 11/16/17 11/16/17 Levofloxacin [Levaquin] 500 mg PO DAILY 11/16/17 11/16/17 Loperamide HCl [Imodium A-D] 2 mg PO QID PRN 11/16/17 11/16/17 Loratadine [Claritin] 10 mg PO DAILY 11/16/17 11/16/17 Magnesium Hydroxide [Milk of 30 ml PO Q12H PRN 11/16/17 11/16/17 Magnesia] Melatonin 6 mg PO HS 11/16/17 11/16/17 Metoprolol Tartrate [Lopressor] 25 mg PO BID 11/16/17 11/16/17 Omeprazole [Prilosec] 20 mg PO DAILY 11/16/17 11/16/17 Peg 3350 238 G Bottle [Miralax] 17 gm PO DAILY PRN 11/16/17 11/16/17 Potassium Chloride 20 meq PO BID 11/16/17 11/16/17 Promethazine HCl 25 mg PO Q12H PRN 11/16/17 11/16/17 Tramadol [Ultram] 25 mg PO Q6HR PRN 11/16/17 11/16/17 dilTIAZem HCl [Diltiazem 24Hr ER] 180 mg PO DAILY 11/16/17 11/16/17 guaiFENesin [Mucinex] 600 mg PO Q12H PRN 11/16/17 11/16/17 Allergies Allergy/AdvReac Type Severity Reaction Status Date / Time cephalexin Allergy Intermediate Verified 11/16/17 10:45 cefuroxime [From Ceftin] Allergy Unknown Verified 11/16/17 10:45 iodine Allergy Unknown Verified 11/16/17 10:45 milk Allergy Unknown Verified 11/16/17 10:45 Penicillins Allergy Unknown Verified 11/16/17 10:45 gluten AdvReac Intermediate diarrhea, Verified 11/16/17 10:45 stomach cramps Review of Systems Limitations: ROS unobtainable due to patient's medical condition PFS Patient Stated Medical History Dementia Yes Cataracts Yes Glaucoma Yes Other HEENT Yes: Allergic Rhinitis Congestive Heart Failure Yes Coronary Artery Disease Yes Hypertension Yes Asthma Yes Chronic Obstructive Pulmonary Yes Disease (COPD) Diabetes Mellitus Type 2 Yes Gastroesophageal Reflux Yes Disease Other GI Yes: Constipation Osteoarthritis Yes Depression Yes Medical History Updates: HTN. COPD. Constipation. CAD. Dementia with behavioral disturbance. Fibromyalgia. Glaucoma. Anxiety. GERD. Dry eyes. LIZ. Hemorrhoids. Hypokalemia. Insomnia Surgical History: Pacemaker. Back surgery. Cholecystectomy. Cardiac stent. T &A Family History: Reviewed and noncontributory - Social History Smoking status: Never smoker Substance use type: does not use Alcohol intake frequency: does not drink Physical Exam - Limitations Limitations: altered mental status - General General appearance: alert, in no apparent distress - Normal Exams: Head:: Normocephalic without trauma Eyes:: Pupils are PERRLA w/ EOMI, No scleral icterus, irritation, or foreign bodies noted ENMT:: No facial trauma, nasal exudates, pharyngeal erythema, or exudates are noted Dental: No fractured, loose, or missing teeth noted Neck:: Full range of motion, without adenopathy, JVD, bruits or thyromegaly Chest/Respirations:: Clear all florez, with good airflow, and symmetry bilaterally Cardiovascular:: Regular rate and rhythm, without murmur or gallop, Pulses 2+ all extremities, capillary refill, <2 seconds all extremities Abdomen:: Bowel sounds positive, soft, non-tender, non-distended, no hepatosplenomegaly, masses or bruits noted Lymphatic:: No lymphadenopathy, or lymphedema noted Musculoskeletal:: No tenderness, or deformity noted, good range of motion, all extremities Integumentary:: No rashes, hives, or bruising noted, hair and nails, without abnormality Neurological:: Patient is alert (Does not answer orientation questions. No obvious focal deficit.) Course Vital Signs Temperature 97 F 11/16/17 10:25 Pulse Rate 85 11/16/17 10:25 Respiratory Rate 16 11/16/17 10:25 Blood Pressure 127/60 11/16/17 10:25 Pulse Oximetry 99 11/16/17 10:25 Temperature 97 F 11/16/17 10:39 Pulse Rate 85 11/16/17 10:45 Respiratory Rate 16 11/16/17 11:54 Blood Pressure 127/60 11/16/17 10:45 Pulse Oximetry 99 11/16/17 11:54 Medical Decision Making - MDM Narrative Medical decision making narrative: Labs/imaging were reviewed in detail with the patient and family and questions are answered. Patient is given 500 mL of normal saline intravenously times one. When patient's potassium is reviewed she is given 1 amp of calcium gluconate, 10 units of regular insulin/1 amp of D50, continuous albuterol nebulizer, 1 amp of sodium bicarbonate, and 30 g of Kayexalate rectally. Patient is a do not resuscitate. She is discussed in detail with Dr. Cunha who agrees to accept the patient to his service for further evaluation and treatment. Patient is admitted to the service of the hospitalist to CCU in improved condition. No further orders from accepting physician who is in agreement with the current plan of management. Patient was unable to take the Kayexalate orally so it must be given rectally due to AMS. Slight delay in administration of Kayexalate rectally secondary to obtaining materials and supplies to administer rectal Kayexalate. - Differential Diagnosis metabolic disorder, UTI, PNA, CHF - Lab Data Result diagrams: 11/16/17 10:53 11/16/17 10:53 Lab Results 11/16/17 11/16/17 11/16/17 Range/Units 10:52 10:53 10:53 WBC 14.7 H (4.5-11.0) T/MM3 RBC 4.10 (4.00-5.20) M/MM3 Hgb 12.2 (12-16) GM/DL Hct 37.4 (36-46) % MCV 91.2 (80-100) UM3 MCH 29.8 (26-34) UUG MCHC 32.6 (31-37) GM/DL RDW Std Deviation 47.0 (36.9-50.2) FL Plt Count 147 (130-400) T/MM3 MPV 12.9 H (9.4-12.4) UM3 Immature Gran % (Auto) 0.5 (0.0-0.5) % Neut % (Auto) 79.6 H (33-66) % Lymph % (Auto) 12.2 L (23-45) % [place]inger % (Auto) 7.0 (0-9.0) % Eos % (Auto) 0.5 (0-4) % Baso % (Auto) 0.2 (0-2) % Neut # (Auto) 11.7 H (1.8-7.7) T/MM3 Lymph # (Auto) 1.8 (1-4.8) T/MM3 Grainger # (Auto) 1.0 H (0-0.8) T/MM3 Eos # (Auto) 0.1 (0-0.5) T/MM3 Baso # (Auto) 0.0 (0-0.2) T/MM3 Abs Immat Gran (auto) 0.07 H (0.00-0.03) T/MM3 Turbidity < 20 (0-20) Sodium 147 H (136-146) MEQ/L Potassium 7.0 H* (3.6-5) MEQ/L Chloride 121 H (98-107) MEQ/L Carbon Dioxide 13 L (22-30) MEQ/L Anion Gap 13 (5-15) meq/L BUN 109.0 H* (7-17) MG/DL Creatinine 3.8 H (0.7-1.2) mg/dL Estimated Creat Clear 9 (>50) mL/min GFR Calculation 11 (>60) mL/min BUN/Creatinine Ratio 29 H (6-26) RATIO Glucose 119 H (65-110) MG/DL Calculated Osmolality 317 H (261-280) MOSM/KG Calcium 9.2 (8.4-10.2) MG/DL Phosphorus 4.7 H (2.5-4.5) MG/DL Magnesium 2.2 (1.6-2.3) MG/DL Total Bilirubin 0.40 (0.20-1.30) MG/DL Icterus Index < 2 (0-7) AST 77 H (14-36) U/L ALT 100 H (1-35) U/L Alkaline Phosphatase 114 (38-126) U/L Troponin I 0.038 (0-0.12) ng/ml NT-Pro-B Natriuret Pep 29216 H (0-175) pg/mL Total Protein 6.5 (6.3-8.2) g/dL Albumin 3.4 L (3.5-5.0) g/dL Globulin 3.1 (2.4-3.6) G/DL Albumin/Globulin Ratio 1.1 (1.1-2.2) RATIO Specimen Hemolysis < 15 (0-25) Ur Collection Type Urine Color (YELLOW) Urine Clarity Urine pH (5.0-8.0) Ur Specific [place] (1.015-1.025) Urine Protein (NEGATIVE) Urine Glucose (UA) (NEGATIVE) Urine Ketones (NEGATIVE) Urine Occult Blood (NEGATIVE) Urine Nitrate (NEGATIVE) Urine Bilirubin (NEGATIVE) Urine Urobilinogen (NORMAL) EU/DL Ur Leukocyte Esterase (NEGATIVE) Urinalysis Comment 11/16/17 Range/Units 11:39 WBC (4.5-11.0) T/MM3 RBC (4.00-5.20) M/MM3 Hgb (12-16) GM/DL Hct (36-46) % MCV (80-100) UM3 MCH (26-34) UUG MCHC (31-37) GM/DL RDW Std Deviation (36.9-50.2) FL Plt Count (130-400) T/MM3 MPV (9.4-12.4) UM3 Immature Gran % (Auto) (0.0-0.5) % Neut % (Auto) (33-66) % Lymph % (Auto) (23-45) % Grainger % (Auto) (0-9.0) % Eos % (Auto) (0-4) % Baso % (Auto) (0-2) % Neut # (Auto) (1.8-7.7) T/MM3 Lymph # (Auto) (1-4.8) T/MM3 [place]inger # (Auto) (0-0.8) T/MM3 Eos # (Auto) (0-0.5) T/MM3 Baso # (Auto) (0-0.2) T/MM3 Abs Immat Gran (auto) (0.00-0.03) T/MM3 Turbidity (0-20) Sodium (136-146) MEQ/L Potassium (3.6-5) MEQ/L Chloride (98-107) MEQ/L Carbon Dioxide (22-30) MEQ/L Anion Gap (5-15) meq/L BUN (7-17) MG/DL Creatinine (0.7-1.2) mg/dL Estimated Creat Clear (>50) mL/min GFR Calculation (>60) mL/min BUN/Creatinine Ratio (6-26) RATIO Glucose (65-110) MG/DL Calculated Osmolality (261-280) MOSM/KG Calcium (8.4-10.2) MG/DL Phosphorus (2.5-4.5) MG/DL Magnesium (1.6-2.3) MG/DL Total Bilirubin (0.20-1.30) MG/DL Icterus Index (0-7) AST (14-36) U/L ALT (1-35) U/L Alkaline Phosphatase (38-126) U/L Troponin I (0-0.12) ng/ml NT-Pro-B Natriuret Pep (0-175) pg/mL Total Protein (6.3-8.2) g/dL Albumin (3.5-5.0) g/dL Globulin (2.4-3.6) G/DL Albumin/Globulin Ratio (1.1-2.2) RATIO Specimen Hemolysis (0-25) Ur Collection Type Urine, cath straight Urine Color Yellow (YELLOW) Urine Clarity Clear Urine pH 5.5 (5.0-8.0) Ur Specific [place] 1.025 (1.015-1.025) Urine Protein Trace A (NEGATIVE) Urine Glucose (UA) Negative (NEGATIVE) Urine Ketones Negative (NEGATIVE) Urine Occult Blood Negative (NEGATIVE) Urine Nitrate Negative (NEGATIVE) Urine Bilirubin Negative (NEGATIVE) Urine Urobilinogen 0.2 (NORMAL) EU/DL Ur Leukocyte Esterase Negative (NEGATIVE) Urinalysis Comment Microscopic not ind. - Radiology Data CXR - no obvious acute processes. CT head: No acute processes. - EKG Data EKG #1 EKG results narrative: Sinus rhythm. Right bundle branch block. 82 bpm. No STEMI. T wave abnormality anterior lateral. Critical Care Time Critical Care Time: Yes Total Critical Care Time: 47 Attestation: 47 minutes of critical care time was assessed to the patient due to the need for complex medical decision making, need for repeated assessment at the bedside , and potential for decompensation. Critical care time was spent treating the patient, documenting the medical record, updating family, and making telephone calls on the patient's behalf. Patient was admitted to the ICU for further evaluation and treatment due to hyperkalemia with treatment cocktail given. Disposition Clinical Impression: Hyperkalemia Acute renal failure Qualifiers: Acute renal failure type: unspecified Qualified Code(s): N17.9 - Acute kidney failure, unspecified Altered mental status Qualifiers: Altered mental status type: unspecified Qualified Code(s): R41.82 - Altered mental status, unspecified Disposition: 02 To [facility] [place] Acute Care Condition: Critical Time of Disposition: 11:40 (Admit. Dr. Cunha. ) - Seen By: physician
--- OUTSIDE RECORDS SUMMARY | 2017-11-16 10:45 | External Medical Summary | Clinical Summary ---
:1930 Author Organization [facility] Address [address] [place] [address] Care Team Providers Name Role Phone Jenn Desir RN Unavailable Yuval Hoang DO Primary Care Provider Jose Rothman MD Unavailable Source Comments Some departments are not documenting in the electronic medical record. If you do not see the information that you expected, contact Release of Information in the Health Information Management department at [phone] for further assistance in locating additional records.[facility] Allergies Active Allergy Reactions Severity Noted Date Comments Aspartame UNKNOWN 09/16/2010 Iodinated Contrast- Oral RASH, ITCHING 09/16/2010 And Iv Dye Gluten SEE COMMENTS 09/16/2010 Celiac disease Cephalexin NAUSEA AND VOMITING 09/16/2010 Lactose NAUSEA AND VOMITING 09/16/2010 Merthiolate (Thimerosal) UNKNOWN 09/16/2010 Penicillins SEE COMMENTS 09/16/2010 Bruising from IM injection Eqocsci-Tin-Esi UNKNOWN 09/16/2010 Reductase Inhibitors Current Medications Prescription Sig. Disp. Refills Start Date End Date Status budesonide/formoterol(+) Inhale 2 Puffs Active (SYMBICORT) 160/4.5 mcg IN by mouth twice HFAA inhalation daily. clonidine (CATAPRESS) 0.1 Take 0.1 mg by Active mg PO tablet mouth twice daily. hydrochlorothiazide Take 25 mg by Active (HYDRODIURIL) 25 mg PO mouth daily. tablet enalapril (VASOTEC) 10 mg Take 10 mg by Active PO tablet mouth daily. Aspirin 81 mg PO Tab Take 81 mg by Active mouth daily. potassium chloride SR Take 20 mEq by Active (K-DUR) 20 mEq PO tablet mouth daily. furosemide (LASIX) 40 mg PO Take 40 mg by Active tablet mouth daily. albuterol (PROVENTIL; Inhale 2 Puffs Active VENTOLIN) 90 mcg/Actuation by mouth every 6 IN inhaler hours as needed. albuterol-ipratropium Inhale 3 mL Active (DUO-NEB) 0.5 mg-3 mg(2.5 solution as mg base)/3 mL IN nebulizer directed every 6 solution hours as needed. nitroglycerin (NITROSTAT) Place 0.4 mg Active 0.4 mg SL tablet under tongue as Needed. tiotropium (SPIRIVA WITH Inhale 18 mcg by Active HANDIHALER) 18 mcg IN mouth daily. capsule for inhaler LUTEIN PO Take 45 mg by Active mouth daily. docusate (COLACE) 100 mg PO Take 100 mg by Active capsule mouth four times daily as needed. Magnesium 100 mg PO Cap Take 100 mg by Active mouth daily. CALCIUM CARBONATE/VITAMIN Take 2 Tabs by Active D3 (CALCIUM 600 WITH mouth twice VITAMIN D3 PO) daily. Red Yeast Rice Extract 600 Take 2 Caps by Active mg PO Cap mouth twice daily. Chromium Picolinate 500 mcg Take 500 mcg by Active PO Cap mouth twice daily. ferrous sulfate 325 mg (65 Take 325 mg by Active mg iron) PO tablet mouth daily. loratadine (CLARITIN) 10 mg Take 10 mg by Active PO tablet mouth daily. famotidine (PEPCID) 10 mg Take 10 mg by Active PO tablet mouth twice daily. oxycodone/acetaminophen Take 1 Tab by 60 Tab 0 09/21/2010 Active (PERCOCET) 5/325 mg PO mouth every 4 tablet hours as needed for Pain. senna/docusate (SENOKOT-S) Take 1 Tab by 09/21/2010 Active 8.6/50 mg PO tablet mouth twice daily. Active Problems Problem Noted Date Lumbar spinal stenosis 09/21/2010 Social History Tobacco Use Types Packs/Day Years Used Date Never Smoker Alcohol Use Drinks/Week oz/Week Comments No Sex Assigned at Date Recorded Not on file Last Filed Vital Signs Vital Sign Reading Time Taken Blood Pressure 121/51 09/21/2010 11:10 AM CDT Pulse 79 09/21/2010 11:10 AM CDT Temperature 37.2 C (98.9 F) 09/21/2010 11:10 AM CDT Respiratory Rate - - Oxygen Saturation 97% 09/21/2010 11:34 AM CDT Inhaled Oxygen Concentration - - Weight 83.3 kg (183 lb 10.3 oz) 09/16/2010 8:48 AM CDT Height 160 cm (5' 3") 09/16/2010 8:48 AM CDT Body Mass Index 32.53 09/16/2010 8:48 AM CDT Plan of Treatment Health Maintenance Due Date Last Done Comments PHYSICAL (COMPREHENSIVE) EXAM 1935 PERTUSSIS VACCINE 1939 TETANUS VACCINE 1945 SHINGLES RECOMBINANT VACCINE (1 of 2) 1978 OSTEOPOROSIS SCREENING 1993 PNEUMONIA (PCV13/PPSV23) VACCINES (1 of 2 - PCV13) 1993 INFLUENZA VACCINE 01/09/2018
--- NOTE | 2017-11-16 11:19 | CT Scan Report ---
Indication: AMS PROCEDURE: CT head/brain wo con: Encounter: Initial Comparison: June 19, 2017 Technique: Axial CT images through the head were performed without contrast. Iterative Reconstruction dose reducing technique was utilized. FINDINGS: Moderate atrophy. The ventricles are stable. 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 There are extensive areas of low attenuation in the white matter which most likely represent changes from chronic microvascular ischemia. The brainstem, cerebellum, and cerebral hemispheres otherwise have a normal morphology and CT attenuation. There is no evidence of midline displacement. No hemorrhage mass effect, mass lesions, or edema is evident. The visualized portions of the skull base, midface, and calvarium demonstrate no abnormality. The paranasal sinuses are well aerated and free of significant disease. The tympanic and mastoid cavities appear normal. IMPRESSION: No acute intracranial abnormality or hemorrhage. .
[2017-11-16] MEDS ORDERED: INSULIN REGULAR, HUMAN 100 UNIT/ML INJECTION IVP ONE (11:21)
[2017-11-16] MEDS ORDERED: CALCIUM GLUCONATE 1,000mg/10ml INJECTION IVP ONE (11:21)
--- NOTE | 2017-11-16 11:21 | XRay Report ---
Indication: sob PROCEDURE: XR chest 1V: Encounter: Initial Comparison: August 29, 2016 Findings: Lungs are mildly hypoinflated but grossly stable and clear. No pleural effusion or pneumothorax. Heart size and mediastinal contours are stable. Left pacemaker. Pulmonary vascularity appears normal. Impression: Hypoinflation without focal pneumonia or congestive failure. .
[2017-11-16] MEDS ORDERED: DEXTROSE 50% INJ 50ml VIAL IV ONE (11:22)
[2017-11-16] MEDS ORDERED: ALBUTEROL CONTINOUS ONE (11:23)
[2017-11-16] MEDS ORDERED: SODIUM BICARBONATE 8.4% (50mEq/50ml) VIAL IV SCH (11:30)
[2017-11-16] MEDS ORDERED: DEXTROSE 50% SYRINGE 50ml (1 AMP) IV ONE (11:45)
[2017-11-16] MEDS: SALINE FLUSH 10ml SYRINGE IVF PRN (11:57)
[2017-11-16] MEDS ORDERED: SODIUM POLYSTYRENE SULFONATE 15 GM/60 ML BOTTLE RECTALLY ONE (12:00)
[2017-11-16] MEDS ORDERED: SODIUM BICARBONATE 8.4% (50mEq/50ml) PFS (1 amp) IVP ONE (12:00)
[2017-11-16] MEDS: 1/2 NS 1,000 ML IV SCH ×2 (14:02→22:11)
[2017-11-16 14:26] VITALS: BMI 25.8
[2017-11-16] MEDS ORDERED: ACETAMINOPHEN 650 MG SUPPOSITORY PR PRN (16:58)
[2017-11-16] MEDS ORDERED: RENAL DOSING - PHARMACY CONSULT MC ONE (16:58)
[2017-11-16] MEDS ORDERED: ONDANSETRON 4 MG/2 ML INJECTION IVP PRN (16:58)
[2017-11-16] MEDS ORDERED: FAMOTIDINE PB 20 MG/50 ML BAG IV SCH (17:00)
[2017-11-16] MEDS ORDERED: NYSTATIN TOP PRN (17:07)
[2017-11-16] MEDS ORDERED: BISACODYL 10 MG SUPPOSITORY RECTALLY PRN (17:07)
[2017-11-16] MEDS ORDERED: HYDROCORTISONE 2.5% CREAM 30gm RECTALLY PRN (17:07)
[2017-11-16] MEDS ORDERED: [UNRECOGNIZED DRUG - OTHER] EACH EYE PRN (17:07)
[2017-11-16] MEDS ORDERED: HYPROMELLOSE EACH EYE PRN (17:07)
[2017-11-16] MEDS ORDERED: DEXTRAN EACH EYE PRN (17:07)
[2017-11-16] MEDS ORDERED: ALBUTEROL/IPRATROPIUM 2.5mg-0.5mg/3ml NEB AEROSOL PRN ×2 (17:10→19:05)
[2017-11-16] MEDS ORDERED: HALOPERIDOL 0.5 MG TABLET PO PRN (17:11)
--- NOTE | 2017-11-16 18:39 | Pharmacy Consult- Renal Dosing ---
Wendi Gerard-Renal Dosing - Laboratory Information 11/16/17 10:53 BUN 109.0 H* Creatinine 3.8 H - Consult Information RENAL DOSING: Day 1 Today's SCr = 3.8 mg/dl. Calculated CrCl = 9 ml/min. Changed the Pepcid to 20 mg iv every 48 hours per renal function. A Renal Dosing Consult was ordered. Thanks, Leoncio Berry [facility].
[2017-11-16] MEDS ORDERED: ALBUTEROL/IPRATROPIUM 2.5mg-0.5mg/3ml NEB AEROSOL SCH (19:00)
[2017-11-16] MEDS ORDERED: BUDESONIDE INH.SOLN 0.5mg/2ml NEB AEROSOL SCH (19:03)
--- NOTE | 2017-11-16 19:35 | History & Physical Report ---
History of Present Illness Date: 11/16/17 Chief complaint: altered mental status, hyperkalemia HPI: Aurelia Duran is an 87-year-old female patient of Dr. Juan Maria who current resides at [facility]. long-term staff reports she was being treated empirically with Levaquin for a suspected infection, though it is unclear if the source of infection was believed to be pulmonary or urinary. Reportedly over the past 24 hours, Aurelia has had a decline in her mental status with increased somnolence and questionable hypoxia prompting the residential to transfer her to [facility] ED for further evaluation. Upon arrival to the ED, she was barely arousable with loud voice and quickly went back to sleep. She has a known history of dementia and was unable to answer questions or contribute to the history, thus limiting the exam. Labs were obtained and revealed hypernatremia (Na 147) with critical hyperkalemia (K 7.0), elevated BUN and SCr at 109 and 3.78 respectively and leukocytosis (WBC 14.7). [place] [address] head and CXR were both unremarkable. She was given 500cc bolus of NS with 1 amp of calcium gluconate, 1 amp of D50, 10 units of regular insulin, 1 amp of bicarb and continuous albuterol for treatment of her hyperkalemia. She was also given Kayexalate 30mg rectally. Recheck of potassium following treatment was improved at 5.7. Due to her decreased level of consciousness with critical hyperkalemia and acute kidney injury, Dr. Back was consulted and was admitted to the ICU for close monitoring, continued treatment, serial labs. Review of Systems ROS unobtainable: due to mental status Review of systems: Though patient awakens briefly to painful stimuli and answer some questions, overall she is somnolent with decreased level of consciousness. - Constitutional Constitutional: Present: lethargy. Absent: fever(s) - EENMT Eyes: Absent: photophobia Balance: Absent: falling to one side Nose: Absent: nosebleeds - Cardiovascular Cardiovascular: Absent: syncope, edema Rhythm: Present: regular rhythm Vascular: Absent: pallor of an extermity, pedal edema, unilateral swelling - Respiratory Respiratory: Present: cough (questionable), wheezing - Gastrointestinal Gastrointestinal: Present: abdominal pain (LLQ), constipation. Absent: vomiting Gastrointestinal Comments: Last reported BM was 11/15/17 per residential staff - Genitourinary Genitourinary: Present: urinary frequency, urinary incontinence, urinary urgency. Absent: hematuria Menstruation: post menopausal - Musculoskeletal Musculoskeletal: Present: muscle weakness. Absent: deformity - Integumentary/Breasts Integumentary: Absent: rash - Neurological Neurological: Present: abnormal speech (incoherent at times), confusion, weakness. Absent: convulsions, focal weakness - Psychiatric Psychiatric Comments: History of dementia with behavioral disturbances including depression and anxiety. - Endocrine Endocrine: Absent: cold intolerance, flushing, heat intolerance - Hematologic/Lymphatic Hematologic/Lymphatic: Present: easy bruising - Allergic/Immunologic Allergic/Immunologic: Present: seasonal rhinorrhea Past Medical History Medical History: Medical History (Last Updated 11/16/17 @ 19:45 by SOPHIA Deleon) Allergic rhinitis Anxiety Asthma Atrial fibrillation CAD (coronary artery disease) COPD (chronic obstructive pulmonary disease) Cataracts, bilateral Chronic kidney disease (CKD), stage III (moderate) Constipation Dementia Depression Diabetes mellitus Diastolic congestive heart failure Fibromyalgia GERD (gastroesophageal reflux disease) Glaucoma Glaucoma Hemorrhoids History of hypokalemia Hyperlipidemia Hypertension Insomnia Obstructive sleep apnea Osteoarthritis Peripheral neuropathy Surgical History: Pacemaker. Back surgery. Cholecystectomy. Cardiac stent - 2014. T&A. Family History: Unable to verify with patient at time of admission. Prior records indicate: Father - CAD, CHF. Mother - DM. Brother - DM. Family History: As Above - Social History Smoking status: Never smoker Housing: residential ([facility]) Household members: none Current occupational status: retired [facility] Social history: PCP - Dr. Juan Maria. Cardio - Dr. Contreras. 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 Medications Home Medications Medication Instructions Recorded Confirmed Type Albuterol Sulfate [Proair Hfa] 2 puff INH Q4HR PRN #0 01/08/14 11/16/17 History Budesonide/Formoterol Fumarate 2 puff INH BID #0 07/09/16 11/16/17 History [Symbicort 160-4.5 Mcg Inhaler] Clopidogrel Bisulfate [Clopidogrel] 75 mg PO DAILY #0 07/09/16 11/16/17 History Dextran 70/Hypromellose 1 drop EACH EYE QID PRN #0 08/19/16 11/16/17 History [Artificial Tears Eye Drops] Mag Hydrox/Aluminum Hyd/Simeth 30 ml PO Q4H PRN #0 08/19/16 11/16/17 History [Alum-Mag Hydroxide-Simeth Liq] Nystatin 1 applicatio TOP BID PRN #0 08/19/16 11/16/17 History Acetaminophen 650 mg PO Q4H PRN 11/16/17 11/16/17 History Acetaminophen [Acetaminophen Extra 1,000 mg PO Q4H PRN 11/16/17 11/16/17 History Strength] Albuterol/Ipratropium [Duoneb] 3 ml AEROSOL Q4H PRN 11/16/17 11/16/17 History Bisacodyl Supp [Dulcolax] 10 mg RECTALLY DAILY PRN 11/16/17 11/16/17 History Calcium 600 + D [Caltrate + D] 1 tab PO DAILY 11/16/17 11/16/17 History Donepezil [Aricept 10 mg] 10 mg PO HS 11/16/17 11/16/17 History Enalapril [Vasotec] 5 mg PO BID 11/16/17 11/16/17 History Gabapentin [Neurontin] 600 mg PO BID 11/16/17 11/16/17 History Guaifenesin/Dextromethorphan 10 ml PO Q4H PRN 11/16/17 11/16/17 History [Guaifenesin Dm Syrup] Hydrocortisone 2.5% Cream 1 applicatio RECTALLY BID PRN 11/16/17 11/16/17 History [Anusol-Hc 2.5% Cream] LORazepam [Ativan] 0.5 mg PO Q6H PRN 11/16/17 11/16/17 History Latanoprost 1 drop EACH EYE PM 11/16/17 11/16/17 History Levofloxacin [Levaquin] 500 mg PO DAILY 11/16/17 11/16/17 History Loperamide HCl [Imodium A-D] 2 mg PO QID PRN 11/16/17 11/16/17 History Loratadine [Claritin] 10 mg PO DAILY 11/16/17 11/16/17 History Magnesium Hydroxide [Milk of 30 ml PO Q12H PRN 11/16/17 11/16/17 History Magnesia] Melatonin 6 mg PO HS 11/16/17 11/16/17 History Metoprolol Tartrate [Lopressor] 25 mg PO BID 11/16/17 11/16/17 History Omeprazole [Prilosec] 20 mg PO DAILY 11/16/17 11/16/17 History Peg 3350 238 G Bottle [Miralax] 17 gm PO DAILY PRN 11/16/17 11/16/17 History Potassium Chloride 20 meq PO BID 11/16/17 11/16/17 History Promethazine HCl 25 mg PO Q12H PRN 11/16/17 11/16/17 History Tramadol [Ultram] 25 mg PO Q6HR PRN 11/16/17 11/16/17 History dilTIAZem HCl [Diltiazem 24Hr ER] 180 mg PO DAILY 11/16/17 11/16/17 History guaiFENesin [Mucinex] 600 mg PO Q12H PRN 11/16/17 11/16/17 History Allergies Allergy/AdvReac Type Severity Reaction Status Date / Time cephalexin Allergy Intermediate Verified 11/16/17 10:45 cefuroxime [From Ceftin] Allergy Unknown Verified 11/16/17 10:45 iodine Allergy Unknown Verified 11/16/17 10:45 milk Allergy Unknown Verified 11/16/17 10:45 Penicillins Allergy Unknown Verified 11/16/17 10:45 gluten AdvReac Intermediate diarrhea, Verified 11/16/17 10:45 stomach cramps Exam Vital Signs: Temperature 97.7 F 11/16/17 18:00 Pulse Rate 86 11/16/17 18:00 Respiratory Rate 24 11/16/17 18:00 Blood Pressure 150/62 H 11/16/17 18:00 Pulse Oximetry 95 11/16/17 18:00 Telemetry Rhythm: Sinus Tachycardia Height/Weight/BMI: Height 5 ft 3 in Weight 145 lb 15.136 oz Body Mass Index 25.8 Comments: Patient is somnolent on exam. Arouses to painful stimuli and loud voice briefly. Appears confused with occasional incoherent speech but at other times answers questions appropriately. - Constitutional Present: no acute distress, well nourished, well developed, somnolent - Routine HEENT Exam Head: Present: normocephalic, atraumatic Eye: Present: PERRL. Absent: conjunctival icterus ENT: Present: mucous membranes dry Comments: Limited exam due to altered mental status. - Routine Neck Exam Present: supple, trachea midline - Routine Chest/Breast/Axilla Exam Chest wall: Present: pacemaker - Routine Respiratory Exam Present: decreased breath sounds, wheezes - Routine Cardiovascular Exam Present: RRR, S1, S2 - Routine Abdominal Exam Present: soft, tenderness (LLQ), guarding (involuntary). Absent: rebound, firm , rigid, organomegaly, mass Comments: No pulsating mass. - Routine Exam Comments: Valentin catheter placed. - Routine Extremities Exam Present: no edema, pulses intact, normal capillary refill - Routine Back/Spine/Pelvis Exam Comments: Unable to assess. - Routine Skin Exam Present: intact, dry, warm Comments: Afebrile. - Routine Neurological Exam Present: altered mental status. Absent: facial asymmetry, normal speech - Detailed Neurological Exam: Coma Scale Coma scale eye opening: to pain Coma scale motor response: withdraws to pain Coma scale verbal response: incomprehensible Coma scale total: 8 Comments: Slight improvement in mentation noted as hyperkalemia improved. 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 Base line cognition is reportedly A&O x 2-3, able to ambulate with a walker with blunt affect and oral orientated thought organization, coherent language but poor memory. Results - Labs CBC & Chem 7: 11/16/17 10:53 11/16/17 20:06 Labs: 09/08/16 - K+ 5.3, Scr 1.5. 06/16/17 - CBC WNL 06/30/17 - Na 145, K+ 5.2, BUN 40, SCr 1.4 - ABG Interpretation ABG results: 11/16/17 17:46 ABG pH 7.337 L ABG pCO2 30 L ABG pO2 68.3 L ABG HCO3 16.0 L ABG Total CO2 16.9 L ABG O2 Saturation 92.5 L ABG Base Excess -8.6 L - Impressions Date of Exam: 11/16/17 Type of Exam(s): XR chest 1V Reason for Exam(s): sob Findings: Lungs are mildly hypoinflated but grossly stable and clear. No pleural effusion or pneumothorax. Heart size and mediastinal contours are stable. Left pacemaker. Pulmonary vascularity appears normal. Impression: Hypoinflation without focal pneumonia or congestive failure. Date of Exam: 11/16/17 Type of Exam(s): CT head/brain wo con Reason for Exam(s): AMS FINDINGS: Moderate atrophy. The ventricles are stable. 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 There are extensive areas of low attenuation in the white matter which most likely represent changes from chronic microvascular ischemia. The brainstem, cerebellum, and cerebral hemispheres otherwise have a normal morphology and CT attenuation. There is no evidence of midline displacement. No hemorrhage mass effect, mass lesions, or edema is evident. The visualized portions of the skull base, midface, and calvarium demonstrate no abnormality. The paranasal sinuses are well aerated and free of significant disease. The tympanic and mastoid cavities appear normal. IMPRESSION: No acute intracranial abnormality or hemorrhage. Assessment and Plan Assessment and Plan: Assessment: Acute kidney injury (POA) Critical hyperkalemia (K 7.0), POA - chronic history of hypokalemia Altered mental status, POA Left lower quadrant abdominal pain, POA Leukocytosis (WBC 14.7), POA Hypernatremia (Na 147), POA Transaminitis (AST 77, ALT 100), POA A-fib with pacemaker placement Hypertension Diastolic congestive heart failure CAD Hyperlipidemia Chronic kidney disease, stage III Diabetes mellitus Osteoarthritis Obstructive sleep apnea with home CPAP Dementia with history of behaviors Insomnia COPD/Asthma Constipation Peripheral neuropathy Hemorrhoids Allergic rhinitis GERD Fibromyalgia Anxiety and depression Plan Admit to ICU under the care of Dr. Back. Patient received calcium gluconate, D50, continuous albuterol, 10 units of regular insulin and 1 amp bicarb in ED with NS 500cc bolus. Initial K+ 7.0 and decreased to 5.7. Monitor serial potassium levels. Monitor closely on telemetry with continuous pulse oximetry. Currently being treated as outpatient with Levaquin initiated 11/10/17-11/20/17 for reported cough, though family believes treatment was for UTI. Give altered mental status with history of dementia as well as HOLGER which can occur in patients taking fluoroquinolones with TRUDY-I, will discontinue levaquin at this time. CXR in ED was unremarkable as well as CT head. Initiate respiratory cares including DuoNeb treatments QID and PRN as well as Pulmicort BID. Oxygen as indicated to maintain SAO2 >92%, weaning as able. long-term reports PRN orders for oxygen though patient does not typically require daytime oxygen. Patient supposed to use CPAP at night but often refuses. ABG obtained revealed metabolic acidosis with pH 7.337 and pCO2 low at 30. Monitor serial labs and recheck labs in AM. Upon discharge, patient's cares will be returned to her PCP, Dr. Maria. Patient is a FULL CODE. DVT Prophylaxis: SCD's, CY Hose GI Prophylaxis: Protonix Resuscitation Status: Full Code - Time spent with patient Time with patient PN: 70 minutes - Physician Narrative Physician: Magnus Back MD Narrative: Date: 11/16/17 Time: 2053 Have independently interviewed and examined pt. Chart reviewed. Case discussed with ED physician and my PA. Care plan developed with my supervision; agree with above. Presents to ED with decreased level of consciousness. Resides in [place] and dose have underlying dementia. Recently started on levofloxacin. Mentation declined today. Evaluated in ED - creatinine increased to 3.8 (baseline 0.9-1.2) and potassium critically high at 7.7 (no hemolysis). Blood pressure in 120 systolic. CXR not showing signs of overload. Patient placed in inpatient admission at [facility] for correction of her hyperkalemia secondary to HOLGER. Lungs: decreased, upper airway noises CV: regular sounding AB: soft ND, bs decreased MSE: awake, mild confusion Plan: Inpatient admission. IVF initiate to help lower potassium and improve renal function. Barbie to [facility]. Renal US. Recheck potassium sound decline out of critical zone-will need to continue to monitor. Hold Potassium and TRUDY. Stop levofloxacin as likely contributing to mental status change and HOLGER. Recheck CXR in am to monitor for increased pulm edema due to IVF use. SCD for DVT prevention. Monitor lab. Care to return to Dr Maria at time of discharge from [facility]. Hospital Course Summary Disclaimer: The visit summary below is not to be considered part of the above Progress Note. Hospital Course: 11/16/17 Admit to ICU under the care of Dr. Back. Patient received calcium gluconate, D50, continuous albuterol, 10 units of regular insulin and 1 amp bicarb in ED with NS 500cc bolus. Initial K+ 7.0 with decreased to 5.7. Monitor serial potassium levels. Monitor closely on telemetry with continuous pulse oximetry. Currently being treated as outpatient with Levaquin initiated 11/10/17-11/20/17 for reported cough, though family believes treatment was for UTI. Give altered mental status with history of dementia as well as HOLGER which can occur in patients taking fluoroquinolones with TRUDY-I, will discontinue Levaquin at this time. CXR in ED was unremarkable as well as CT head. Initiate respiratory cares including DuoNeb treatments QID and PRN as well as Pulmicort BID. Oxygen as indicated to maintain SAO2 >92%, weaning as able. long-term reports PRN orders for oxygen though patient does not typically require daytime oxygen. Patient supposed to use CPAP at night but often refuses. ABG obtained revealed metabolic acidosis with pH 7.337 and pCO2 low at 30. Monitor serial labs and recheck labs in AM. Upon discharge, patient's cares will be returned to her PCP, Dr. Maria. Patient is a FULL CODE.
[2017-11-16] MEDS: LATANOPROST 0.005% EYE DROPS 2.5ml EACH EYE SCH (19:49)
[2017-11-16] MEDS: FAMOTIDINE PB 20 MG/50 ML BAG IV SCH (19:50)
[2017-11-16] MEDS: ARFORMOTEROL NEB 15mcg/2ml AEROSOL SCH (20:02)
[2017-11-16] MEDS: BUDESONIDE INH.SOLN 0.5mg/2ml NEB AEROSOL SCH (20:02)
[2017-11-16] MEDS ORDERED: ARTIFICIAL TEARS 15ml EACH EYE PRN (21:00)
[2017-11-17] MEDS: 1/2 NS 1,000 ML IV SCH ×2 (01:35→12:04)
[2017-11-17] MEDS ORDERED: DiltiaZEM 25 MG/5 ML INJECTION IVP ONE (01:46)
[2017-11-17] MEDS ORDERED: DiltiaZEM Drip 125 MG in NS 125 ML IV SCH (02:30)
[2017-11-17] MEDS: DIGOXIN 500 MCG/2 ML INJECTION IVP SCH ×2 (04:03→10:07)
[2017-11-17] MEDS ORDERED: SODIUM POLYSTYRENE SULFONATE 15 GM/60 ML BOTTLE RECTALLY ONE (06:31)
--- NOTE | 2017-11-17 08:16 | CT Scan Report ---
Indication: LLQ abdominal pain, decreased LOC PROCEDURE: CT abdomen pelvis wo con: Encounter: Initial Comparison: November 23, 2014 Technique: Axial CT images were performed through the abdomen and pelvis without intravenous contrast. Coronal and sagittal two-dimensional reformats. Automated Exposure Control and Iterative Reconstruction dose reducing techniques were utilized. Findings: Atelectasis and scarring in both lower lobes. There is a region of groundglass opacity with an atoll sign seen in the left lower lobe. Subpleural benign stable 6 mm nodule in the right middle lobe The unenhanced contours of the liver are grossly normal. Motion artifact. Gallbladder is surgically absent. The spleen, pancreas and adrenal glands are grossly normal. Valentin catheter within the bladder. Uterus is unremarkable. No free fluid. Inflammation surrounding the proximal sigmoid colon with multiple diverticula present. No free air or abscess. No bowel obstruction. Bone windows show no acute findings. Impression: 1. Acute sigmoid diverticulitis. 2. Possible infectious or inflammatory infiltrate in the left lower lobe. There is a preliminary report by [employer] [facility]. .
--- NOTE | 2017-11-17 08:19 | Ultrasound Report ---
Indication: HOLGER PROCEDURE: US renal BI: Encounter: Initial Comparison: None Technique: Grayscale and color Doppler sonographic imaging of both kidneys and bladder was performed. FINDINGS: Both kidneys are present with normal cortical thickness and echogenicity. No evidence for collecting system dilatation, contour deforming mass, nephrolithiasis, or abnormal perinephric fluid collection. The right kidney measures 10.7 cm in length, and the left kidney measures 11.6 cm in length. Bladder appears sonographically normal without debris or mass. No ureteral jets visualized. IMPRESSION: No hydronephrosis. .
--- NOTE | 2017-11-17 09:05 | Pharmacy Consult- Renal Dosing ---
Wendi Gerard-Renal Dosing - Laboratory Information 11/16/17 11/17/17 10:53 04:41 BUN 109.0 H* 96.0 H* Creatinine 3.8 H 2.9 H D RENAL DOSING OF MEDICATIONS: Renal fx continue significantly compromised. Today's estimated CrCl = 12 ml/ min Continue Famotidine @ 20mg IV q 48 hours. All other medications OK at present dosing regimens Thank you
--- NOTE | 2017-11-17 11:13 | XRay Report ---
Indication: F/U - HOLGER, IVF use PROCEDURE: XR chest 1V: Encounter: Initial Comparison: November 16, 2017 Findings: Lungs are grossly clear. No focal pneumonia, pleural effusion or pneumothorax. The left lower lobe airspace disease seen on CT is not well visualized radiographically. No pneumothorax or significant pleural fluid. Heart size and mediastinal contours are stable. Left dual-lead cardiac pacemaker. Impression: No focal pneumonia or overt congestive failure. .
[2017-11-17] MEDS: BUDESONIDE INH.SOLN 0.5mg/2ml NEB AEROSOL SCH ×2 (11:30→20:41)
[2017-11-17] MEDS: ARFORMOTEROL NEB 15mcg/2ml AEROSOL SCH ×2 (11:31→20:41)
[2017-11-17] MEDS: MetroNIDAZOLE PB 500 MG/100 ML BAG IV SCH ×2 (13:30→17:55)
--- NOTE | 2017-11-17 15:13 | Progress Note ---
- Date 11/17/17 Subjective: F/U: Acute kidney injury, Critical hyperkalemia, Altered mental status Resting in bed at time of my evaluation. Speech did see patient and started therapeutic NPO - do not feel her mentation is up to eating unsupervised. Nursing reports patient having more episodes of mental clarity. Has been adherent with BiPAP when sleeping. HR increased overnight-diltiazem drip started and given Digoxin with rate improving. Creatinine decreasing, but potassium with increase to 6.2. Objective Vital signs: Temperature 97.2 F 11/17/17 05:12 Pulse Rate 72 11/17/17 12:00 Respiratory Rate 16 11/17/17 11:30 Blood Pressure 96/56 11/17/17 06:00 Pulse Oximetry 99 11/17/17 11:30 Height/Weight/BMI: Height 1.6 m Weight 66.4 kg Body Mass Index 25.8 - Constitutional Present: well nourished, well developed, average body habitus, somnolent - Routine HEENT Exam Head: Present: normocephalic, atraumatic ENT: Present: mucous membranes moist - Routine Respiratory Exam Present: decreased breath sounds, distant breath sounds. Absent: respiratory distress - Routine Cardiovascular Exam Present: RRR, no murmur - Routine Abdominal Exam Present: soft, non distended. Absent: normoactive bowel sounds (decreased) - Routine Extremities Exam Present: edema (Trace). Absent: cyanosis, clubbing Comments: SCD in place - Routine Musculoskeletal Exam Musculoskeletal: Present: no clubbing or cyanosis - Routine Skin Exam Present: dry, warm - Routine Neurological Exam Somnolent Results - Labs CBC & Chem 7: 11/17/17 04:40 11/17/17 04:41 - ABG Interpretation ABG results: 11/16/17 17:46 ABG pH 7.337 L ABG pCO2 30 L ABG pO2 68.3 L ABG HCO3 16.0 L ABG Total CO2 16.9 L ABG O2 Saturation 92.5 L ABG Base Excess -8.6 L Assessment and Plan (1) Hyperkalemia Current visit: Yes Status: Acute (2) Acute renal failure Current visit: Yes Status: Acute (3) Altered mental status Current visit: Yes Status: Acute Assessment and Plan: Assessment: Acute kidney injury (POA) Critical hyperkalemia (K 7.0), POA - chronic history of hypokalemia Altered mental status, POA Left lower quadrant abdominal pain, POA Acute diverticulosis Leukocytosis (WBC 14.7), POA Hypernatremia (Na 147), POA Transaminitis (AST 77, ALT 100), POA A-fib with pacemaker placement Hypertension Diastolic congestive heart failure CAD Hyperlipidemia Chronic kidney disease, stage III Diabetes mellitus Osteoarthritis Obstructive sleep apnea with home CPAP Dementia with history of behaviors Insomnia COPD/Asthma Constipation Peripheral neuropathy Hemorrhoids Allergic rhinitis GERD Fibromyalgia Anxiety and depression Plan Initiate Metronidazole for GI coverage due to diverticulitis - Pen allergy exclude Zosyn, and wish to avoid fluoroquinolones at this time. Sodium with increase from 147 to 148 despite 1/2NS; will change to D5W at 100cc/ hr. Bumex 0.5mg x1 to waste potassium as potassium with increase to 6.2 this am. Recheck BMP this afternoon. Speech working with patient - therapeutic NPO due to decreased level of consciousness. RVR overnight - rate improved with IV diltiazem drip, Digoxin given. BP showing increase this afternoon -- restart diltiazem at home 180mg daily. Monitor BP. Recheck CMP in am due to elevated liver enzymes and HOLGER. Repeat CBC secondary to resolving leukocytosis. Case discussed with CCU nursing. Time spent with patient care 25 minutes. DVT Prophylaxis: SCD's, CY Hose GI Prophylaxis: Protonix Resuscitation Status: Full Code - Time spent with patient Time with patient PN: 25 minutes - Physician Narrative Physician: Magnus Back MD Narrative: Date: 11/17/17 Time: 1763 Hospital Course Summary Disclaimer: The visit summary below is not to be considered part of the above Progress Note. Hospital Course: 11/16/17 Admit to ICU under the care of Dr. Back. Patient received calcium gluconate, D50, continuous albuterol, 10 units of regular insulin and 1 amp bicarb in ED with NS 500cc bolus. Initial K+ 7.0 with decreased to 5.7. Monitor serial potassium levels. Monitor closely on telemetry with continuous pulse oximetry. Currently being treated as outpatient with Levaquin initiated 11/10/17-11/20/17 for reported cough, though family believes treatment was for UTI. Give altered mental status with history of dementia as well as HOLGER which can occur in patients taking fluoroquinolones with TRUDY-I, will discontinue Levaquin at this time. CXR in ED was unremarkable as well as CT head. Initiate respiratory cares including DuoNeb treatments QID and PRN as well as Pulmicort BID. Oxygen as indicated to maintain SAO2 >92%, weaning as able. prison reports PRN orders for oxygen though patient does not typically require daytime oxygen. Patient supposed to use CPAP at night but often refuses. ABG obtained revealed metabolic acidosis with pH 7.337 and pCO2 low at 30. Monitor serial labs and recheck labs in AM. Upon discharge, patient's cares will be returned to her PCP, Dr. Maria. Patient is a FULL CODE. 11/17/17 Initiate Metronidazole for GI coverage due to diverticulitis - Pen allergy exclude Zosyn, and wish to avoid fluoroquinolones at this time. Sodium with increase from 147 to 148 despite 1/2NS; will change to D5W at 100cc/ hr. Bumex 0.5mg x1 to waste potassium as potassium with increase to 6.2 this am. Recheck BMP this afternoon. Speech working with patient - therapeutic NPO due to decreased level of consciousness. RVR overnight - rate improved with IV diltiazem drip, Digoxin given. BP showing increase this afternoon -- restart diltiazem at home 180mg daily. Monitor BP.
[2017-11-17] MEDS: SALINE FLUSH 10ml SYRINGE IVF PRN (16:15)
[2017-11-17] MEDS: D5W 1,000 ML IV SCH (16:23)
[2017-11-17] MEDS: LATANOPROST 0.005% EYE DROPS 2.5ml EACH EYE SCH (20:00)
[2017-11-18] MEDS: MetroNIDAZOLE PB 500 MG/100 ML BAG IV SCH ×3 (00:13→17:35)
[2017-11-18] MEDS: D5W 1,000 ML IV SCH ×3 (05:08→18:37)
[2017-11-18] MEDS: BUDESONIDE INH.SOLN 0.5mg/2ml NEB AEROSOL SCH ×2 (07:35→18:47)
[2017-11-18] MEDS: ARFORMOTEROL NEB 15mcg/2ml AEROSOL SCH ×2 (07:35→18:47)
--- NOTE | 2017-11-18 11:48 | Progress Note ---
- Date 11/18/17 Subjective: F/U: Acute kidney injury, Critical hyperkalemia, Altered mental status Resting in bed this morning, but easily awaked. Not reporting ab pain (nursing did note LLQ ab pain this morning, decreased from admission). Taking oral in with speech assistance-they are working on advancing diet. Patient not reporting nausea. Breathing feels okay-not congested or SOA. Does tolerate BiPAP when sleeping (LIZ). No f/c. Level of alertness continues to improve. Objective Vital signs: Temperature 99.1 F 11/18/17 04:00 Pulse Rate 75 11/18/17 08:00 Respiratory Rate 17 11/18/17 07:35 Blood Pressure 136/64 11/18/17 06:00 Pulse Oximetry 96 11/18/17 07:54 Height/Weight/BMI: Height 1.6 m Weight 68 kg Body Mass Index 25.8 - Constitutional Present: well nourished, well developed, average body habitus, cooperative - Routine HEENT Exam Head: Present: normocephalic, atraumatic Eye: Present: EOMI, PERRL, normal accommodation ENT: Present: mucous membranes moist - Routine Respiratory Exam Present: decreased breath sounds. Absent: rales, respiratory distress, rhonchi , stridor, wheezes, crackles - Routine Cardiovascular Exam Present: RRR, no murmur - Routine Abdominal Exam Present: soft, non distended, non tender. Absent: normoactive bowel sounds ( decreased), guarding - Routine Extremities Exam Present: no edema, pulses intact. Absent: cyanosis, clubbing Comments: SCD in place - Routine Musculoskeletal Exam Musculoskeletal: Present: no clubbing or cyanosis - Routine Skin Exam Present: dry, warm - Routine Neurological Exam Present: alert, CN II-XII intact, moving all extremities, vision grossly intact , hearing grossly intact, normal speech - Routine Psychiatric Exam Present: normal affect, cooperative. Absent: anxious, agitated, paranoid Results - Labs CBC & Chem 7: 11/18/17 04:23 11/18/17 04:23 - ABG Interpretation ABG results: 11/16/17 17:46 ABG pH 7.337 L ABG pCO2 30 L ABG pO2 68.3 L ABG HCO3 16.0 L ABG Total CO2 16.9 L ABG O2 Saturation 92.5 L ABG Base Excess -8.6 L Assessment and Plan (1) Hyperkalemia Current visit: Yes Status: Acute (2) Acute renal failure Current visit: Yes Status: Acute (3) Altered mental status Current visit: Yes Status: Acute Assessment and Plan: Assessment: Acute kidney injury (POA) Critical hyperkalemia (K 7.0), POA - chronic history of hypokalemia Altered mental status, POA Left lower quadrant abdominal pain, POA Acute diverticulosis Leukocytosis (WBC 14.7), POA Hypernatremia (Na 147), POA Transaminitis (AST 77, ALT 100), POA A-fib with pacemaker placement Hypertension Diastolic congestive heart failure CAD Hyperlipidemia Chronic kidney disease, stage III Diabetes mellitus Osteoarthritis Obstructive sleep apnea with home CPAP Dementia with history of behaviors Insomnia COPD/Asthma Constipation Peripheral neuropathy Hemorrhoids Allergic rhinitis GERD Fibromyalgia Anxiety and depression Plan Renal status improving - creatinine decreased to 1.9 with BUN 63. Potassium 4.3 with Sodium 143. Continue D5W but decrease to 75cc/hr - will give Bumex 0.5mg x1. Heart rate improved on home metoprolol and diltiazem. Continue metronidazole for GI coverage due to diverticulitis - Pen allergy exclude Zosyn, and wish to avoid fluoroquinolones at this time. Continue Speech Therapy to improve swallow function - diet being advanced. Recheck BMP in am due to elevated liver enzymes and HOLGER. Repeat CBC secondary to resolving leukocytosis. With clinical improvements can transfer to medical floor for continuation of care. Case discussed with CCU nursing. Time spent with patient care 25 minutes. DVT Prophylaxis: SCD's, CY Hose GI Prophylaxis: Protonix Resuscitation Status: Full Code - Physician Narrative Narrative: Date: 11/18/17 Time: 1145 Hospital Course Summary Disclaimer: The visit summary below is not to be considered part of the above Progress Note. Hospital Course: 11/16/17 Admit to ICU under the care of Dr. Back. Patient received calcium gluconate, D50, continuous albuterol, 10 units of regular insulin and 1 amp bicarb in ED with NS 500cc bolus. Initial K+ 7.0 with decreased to 5.7. Monitor serial potassium levels. Monitor closely on telemetry with continuous pulse oximetry. Currently being treated as outpatient with Levaquin initiated 11/10/17-11/20/17 for reported cough, though family believes treatment was for UTI. Give altered mental status with history of dementia as well as HOLGER which can occur in patients taking fluoroquinolones with TRUDY-I, will discontinue Levaquin at this time. CXR in ED was unremarkable as well as CT head. Initiate respiratory cares including DuoNeb treatments QID and PRN as well as Pulmicort BID. Oxygen as indicated to maintain SAO2 >92%, weaning as able. [facility] reports PRN orders for oxygen though patient does not typically require daytime oxygen. Patient supposed to use CPAP at night but often refuses. ABG obtained revealed metabolic acidosis with pH 7.337 and pCO2 low at 30. Monitor serial labs and recheck labs in AM. Upon discharge, patient's cares will be returned to her PCP, Dr. Maria. Patient is a FULL CODE. 11/17/17 Initiate Metronidazole for GI coverage due to diverticulitis - Pen allergy exclude Zosyn, and wish to avoid fluoroquinolones at this time. Sodium with increase from 147 to 148 despite 1/2NS; will change to D5W at 100cc/ hr. Bumex 0.5mg x1 to waste potassium as potassium with increase to 6.2 this am. Recheck BMP this afternoon. Speech working with patient - therapeutic NPO due to decreased level of consciousness. RVR overnight - rate improved with IV diltiazem drip, Digoxin given. BP showing increase this afternoon -- restart diltiazem at home 180mg daily. Monitor BP. 11/18/17 Renal status improving - creatinine decreased to 1.9 with BUN 63. Potassium 4.3 with Sodium 143. Continue D5W but decrease to 75cc/hr - will give Bumex 0.5mg x1. Heart rate improved on home metoprolol and diltiazem. Continue metronidazole for GI coverage due to diverticulitis - Pen allergy exclude Zosyn, and wish to avoid fluoroquinolones at this time. Continue Speech Therapy to improve swallow function - diet being advanced. Recheck BMP in am due to elevated liver enzymes and HOLGER. Repeat CBC secondary to resolving leukocytosis. With clinical improvements can transfer to medical floor for continuation of care.
[2017-11-18] MEDS: SALINE FLUSH 10ml SYRINGE IVF PRN (12:39)
[2017-11-18] MEDS: LATANOPROST 0.005% EYE DROPS 2.5ml EACH EYE SCH (21:11)
[2017-11-18] MEDS: FAMOTIDINE PB 20 MG/50 ML BAG IV SCH (21:12)
[2017-11-19] MEDS: MetroNIDAZOLE PB 500 MG/100 ML BAG IV SCH ×3 (00:36→17:02)
[2017-11-19] MEDS: SALINE FLUSH 10ml SYRINGE IVF PRN (03:29)
[2017-11-19] MEDS: BUDESONIDE INH.SOLN 0.5mg/2ml NEB AEROSOL SCH ×2 (07:30→20:02)
[2017-11-19] MEDS: ARFORMOTEROL NEB 15mcg/2ml AEROSOL SCH ×2 (07:31→20:02)
[2017-11-19] MEDS: D5W 1,000 ML IV SCH (10:56)
[2017-11-19] MEDS: 1/2 NS 1,000 ML IV SCH (13:46)
[2017-11-19] MEDS ORDERED: LORazepam 0.5 MG TABLET PO PRN (15:55)
[2017-11-19] MEDS ORDERED: POLYETHYL GLYCOL 3350 17gm PACKET PO PRN (15:55)
--- NOTE | 2017-11-19 16:19 | Progress Note ---
- Date 11/19/17 Subjective: F/U: Acute kidney injury, Critical hyperkalemia, Altered mental status Resting in bed this afternoon. Has eyes open, will answer questions with yes/no - not engaging in conversation. Denies feeling SOA or congested. No reporting nausea or ab pain. Nursing charted no lunch intake. Objective Vital signs: Temperature 96.1 F L 11/19/17 15:21 Pulse Rate 75 11/19/17 15:21 Respiratory Rate 20 11/19/17 15:21 Blood Pressure 156/65 H 11/19/17 15:21 Pulse Oximetry 95 11/19/17 15:21 Height/Weight/BMI: Height 1.6 m Weight 71.4 kg Body Mass Index 25.8 - Constitutional Present: well nourished, well developed, average body habitus - Routine HEENT Exam Head: Present: normocephalic, atraumatic Eye: Present: EOMI, PERRL - Routine Respiratory Exam Present: decreased breath sounds. Absent: respiratory distress, wheezes, crackles - Routine Cardiovascular Exam Present: RRR, no murmur - Routine Abdominal Exam Present: soft, non distended, non tender. Absent: normoactive bowel sounds ( decreased) - Routine Extremities Exam Present: pulses intact. Absent: cyanosis, clubbing Comments: SCD present - Routine Musculoskeletal Exam Musculoskeletal: Present: no clubbing or cyanosis - Routine Skin Exam Present: dry, warm - Routine Neurological Exam Present: alert, moving all extremities, vision grossly intact, hearing grossly intact - Routine Psychiatric Exam Comments: Appears mildly apprehensive Results - Labs CBC & Chem 7: 11/19/17 03:29 11/19/17 05:30 Assessment and Plan (1) Hyperkalemia Current visit: Yes Status: Acute (2) Acute renal failure Current visit: Yes Status: Acute (3) Altered mental status Current visit: Yes Status: Acute Assessment and Plan: Assessment: Acute kidney injury (POA) Critical hyperkalemia (K 7.0), POA - chronic history of hypokalemia Altered mental status, POA Left lower quadrant abdominal pain, POA Acute diverticulosis Leukocytosis (WBC 14.7), POA Hypernatremia (Na 147), POA Transaminitis (AST 77, ALT 100), POA A-fib with pacemaker placement Hypertension Diastolic congestive heart failure CAD Hyperlipidemia Chronic kidney disease, stage III Diabetes mellitus Osteoarthritis Obstructive sleep apnea with home CPAP Dementia with history of behaviors Insomnia COPD/Asthma Constipation Peripheral neuropathy Hemorrhoids Allergic rhinitis GERD Fibromyalgia Anxiety and depression Plan Renal status improving - creatinine decreased to 1.5 with BUN 45. Potassium 4.0 with Sodium 139. Urine output increased. Change IVF to 1/2NS at 50cc/hr as sodium decreasing. Will give Bumex 1mg x1. Continue metronidazole for GI coverage due to diverticulitis - WBC 12.9. Patient not reporting ab pain. Encourage oral intake as able. Recheck CMP in am due to elevated liver enzymes and HOLGER. Repeat CBC secondary to resolving leukocytosis. Case discussed with CCU nursing. Time spent with patient care 25 minutes. DVT Prophylaxis: SCD's, CY Hose GI Prophylaxis: Protonix Resuscitation Status: Full Code - Physician Narrative Narrative: Date: 11/19/17 Time: 1616 Hospital Course Summary Disclaimer: The visit summary below is not to be considered part of the above Progress Note. Hospital Course: 11/16/17 Admit to ICU under the care of Dr. Back. Patient received calcium gluconate, D50, continuous albuterol, 10 units of regular insulin and 1 amp bicarb in ED with NS 500cc bolus. Initial K+ 7.0 with decreased to 5.7. Monitor serial potassium levels. Monitor closely on telemetry with continuous pulse oximetry. Currently being treated as outpatient with Levaquin initiated 11/10/17-11/20/17 for reported cough, though family believes treatment was for UTI. Give altered mental status with history of dementia as well as HOLGER which can occur in patients taking fluoroquinolones with TRUDY-I, will discontinue Levaquin at this time. CXR in ED was unremarkable as well as CT head. Initiate respiratory cares including DuoNeb treatments QID and PRN as well as Pulmicort BID. Oxygen as indicated to maintain SAO2 >92%, weaning as able. skilled nursing reports PRN orders for oxygen though patient does not typically require daytime oxygen. Patient supposed to use CPAP at night but often refuses. ABG obtained revealed metabolic acidosis with pH 7.337 and pCO2 low at 30. Monitor serial labs and recheck labs in AM. Upon discharge, patient's cares will be returned to her PCP, Dr. Maria. Patient is a FULL CODE. 8/9/18 Initiate Metronidazole for GI coverage due to diverticulitis - Pen allergy exclude Zosyn, and wish to avoid fluoroquinolones at this time. Sodium with increase from 147 to 148 despite 1/2NS; will change to D5W at 100cc/ hr. Bumex 0.5mg x1 to waste potassium as potassium with increase to 6.2 this am. Recheck BMP this afternoon. Speech working with patient - therapeutic NPO due to decreased level of consciousness. RVR overnight - rate improved with IV diltiazem drip, Digoxin given. BP showing increase this afternoon -- restart diltiazem at home 180mg daily. Monitor BP. 11/18/17 Renal status improving - creatinine decreased to 1.9 with BUN 63. Potassium 4.3 with Sodium 143. Continue D5W but decrease to 75cc/hr - will give Bumex 0.5mg x1. Heart rate improved on home metoprolol and diltiazem. Continue metronidazole for GI coverage due to diverticulitis. Continue Speech Therapy to improve swallow function - diet being advanced. With clinical improvements can transfer to medical floor for continuation of care. 11/19/17 Renal status improving - creatinine decreased to 1.5 with BUN 45. Potassium 4.0 with Sodium 139. Urine output increased. Change IVF to 1/2NS at 50cc/hr as sodium decreasing. Will give Bumex 1mg x1. Continue metronidazole for GI coverage due to diverticulitis - WBC 12.9. Patient not reporting ab pain. Encourage oral intake as able.
[2017-11-19] MEDS ORDERED: ACETAMINOPHEN 325 MG TABLET PO PRN (17:03)
[2017-11-19] MEDS: DONEPEZIL 10 MG TABLET PO SCH (22:25)
[2017-11-19] MEDS: LATANOPROST 0.005% EYE DROPS 2.5ml EACH EYE SCH (22:25)
[2017-11-20] MEDS: MetroNIDAZOLE PB 500 MG/100 ML BAG IV SCH ×3 (02:29→17:33)
[2017-11-20] MEDS: BUDESONIDE INH.SOLN 0.5mg/2ml NEB AEROSOL SCH ×2 (07:11→20:00)
[2017-11-20] MEDS: ARFORMOTEROL NEB 15mcg/2ml AEROSOL SCH ×2 (07:12→20:00)
[2017-11-20] MEDS: OMEPRAZOLE 20 MG CAPSULE PO SCH (10:05)
[2017-11-20] MEDS: CLOPIDOGREL 75 MG TABLET PO SCH (10:12)
[2017-11-20] MEDS: 1/2 NS 1,000 ML IV SCH (10:17)
--- NOTE | 2017-11-20 15:09 | Progress Note ---
- Date 11/20/17 Subjective: Aurelia is seen this afternoon while resting in bed. She does briefly open her eyes and make eye contact, however closes them again and does not verbally respond to any questions. She is noted to be breathing on room air, does not appear to be in any acute distress. Chart reviewed, vital signs stable, afebrile Objective Vital signs: Temperature 98.9 F 11/20/17 08:02 Pulse Rate 76 11/20/17 08:02 Respiratory Rate 22 11/20/17 08:02 Blood Pressure 148/71 H 11/20/17 08:02 Pulse Oximetry 94 11/20/17 15:03 Height/Weight/BMI: Height 1.6 m Weight 67 kg Body Mass Index 25.8 - Constitutional Present: no acute distress, well nourished, well developed - Routine HEENT Exam Eye: Present: EOMI ENT: Present: mucous membranes moist, dentition normal - Routine Respiratory Exam Present: diminished air movement. Absent: wheezes - Routine Cardiovascular Exam Present: RRR, S1, S2. Absent: murmur - Routine Abdominal Exam Present: soft, normoactive bowel sounds, non distended. Absent: tenderness - Routine Extremities Exam Present: edema (trace bilateral lower ext) - Routine Skin Exam Present: intact, dry, warm - Routine Neurological Exam Present: alert, altered mental status - Routine Lymphatic Exam Lymphatic: Absent: adenopathy - Routine Psychiatric Exam Present: cooperative Results - Labs CBC & Chem 7: 11/20/17 05:07 11/20/17 05:07 Assessment and Plan (1) Hyperkalemia Current visit: Yes Status: Acute (2) Acute renal failure Current visit: Yes Status: Acute (3) Altered mental status Current visit: Yes Status: Acute Assessment and Plan: Assessment: Acute kidney injury (POA) Critical hyperkalemia (K 7.0), POA - chronic history of hypokalemia Altered mental status, POA Left lower quadrant abdominal pain, POA Acute diverticulosis Leukocytosis (WBC 14.7), POA Hypernatremia (Na 147), POA Transaminitis (AST 77, ALT 100), POA A-fib with pacemaker placement Hypertension Diastolic congestive heart failure CAD Hyperlipidemia Chronic kidney disease, stage III Diabetes mellitus Osteoarthritis Obstructive sleep apnea with home CPAP Dementia with history of behaviors Insomnia COPD/Asthma Constipation Peripheral neuropathy Hemorrhoids Allergic rhinitis GERD Fibromyalgia Anxiety and depression Plan Overall appears to be improving, although remains non-verbal Continues on IV fluids. Was given IV Bumex yesterday. Does not appear fluid overloaded today. Weight today is at admission weight baseline Renal function continues to improve. Liver enzymes normalized. Continue on Flagyl for GI coverage Encourage oral intake as able. DVT Prophylaxis: SCD's, CY Hose GI Prophylaxis: Protonix Resuscitation Status: Full Code - Time spent with patient Time with patient PN: 25 minutes - Physician Narrative Physician: Magnus Back MD Narrative: Date: 11/20/17 Time: 1644 Have independently interviewed and examined pt. Chart reviewed. Case discussed with my [employer] TECHNICIAN. Care plan developed with my supervision; agree with above. Resting in bed. Eyes open, but no engaging in conversation. Looks uncomfortable- figetting in bed. No stool charted since 11/17; Dulcolax/Miralax prn medications have not been used this hospitalization. During exam, became more uncomfortable as I heard bowel gas noises. Ate better at breakfast than past days, but did not want lunch. Breathing comfortably on RA. Lungs: decreased, no distress CV: regular AB: soft nd, BS present. Plan: Continue with Metronidazole and IVF. Work on bowel function. PT/OT eval tomorrow. Continue with supportive care. Hospital Course Summary Disclaimer: The visit summary below is not to be considered part of the above Progress Note. Hospital Course: 11/16/17 Admit to ICU under the care of Dr. Back. Patient received calcium gluconate, D50, continuous albuterol, 10 units of regular insulin and 1 amp bicarb in ED with NS 500cc bolus. Initial K+ 7.0 with decreased to 5.7. Monitor serial potassium levels. Monitor closely on telemetry with continuous pulse oximetry. Currently being treated as outpatient with Levaquin initiated 11/10/17-11/20/17 for reported cough, though family believes treatment was for UTI. Give altered mental status with history of dementia as well as HOLGER which can occur in patients taking fluoroquinolones with TRUDY-I, will discontinue Levaquin at this time. CXR in ED was unremarkable as well as CT head. Initiate respiratory cares including DuoNeb treatments QID and PRN as well as Pulmicort BID. Oxygen as indicated to maintain SAO2 >92%, weaning as able. care home reports PRN orders for oxygen though patient does not typically require daytime oxygen. Patient supposed to use CPAP at night but often refuses. ABG obtained revealed metabolic acidosis with pH 7.337 and pCO2 low at 30. Monitor serial labs and recheck labs in AM. Upon discharge, patient's cares will be returned to her PCP, Dr. Maria. Patient is a FULL CODE. 11/17/17 Initiate Metronidazole for GI coverage due to diverticulitis - Pen allergy exclude Zosyn, and wish to avoid fluoroquinolones at this time. Sodium with increase from 147 to 148 despite 1/2NS; will change to D5W at 100cc/ hr. Bumex 0.5mg x1 to waste potassium as potassium with increase to 6.2 this am. Recheck BMP this afternoon. Speech working with patient - therapeutic NPO due to decreased level of consciousness. RVR overnight - rate improved with IV diltiazem drip, Digoxin given. BP showing increase this afternoon -- restart diltiazem at home 180mg daily. Monitor BP. 11/18/17 Renal status improving - creatinine decreased to 1.9 with BUN 63. Potassium 4.3 with Sodium 143. Continue D5W but decrease to 75cc/hr - will give Bumex 0.5mg x1. Heart rate improved on home metoprolol and diltiazem. Continue metronidazole for GI coverage due to diverticulitis. Continue Speech Therapy to improve swallow function - diet being advanced. With clinical improvements can transfer to medical floor for continuation of care. 11/19/17 Renal status improving - creatinine decreased to 1.5 with BUN 45. Potassium 4.0 with Sodium 139. Urine output increased. Change IVF to 1/2NS at 50cc/hr as sodium decreasing. Will give Bumex 1mg x1. Continue metronidazole for GI coverage due to diverticulitis - WBC 12.9. Patient not reporting ab pain. Encourage oral intake as able. 11/20/17 Overall appears to be improving, although remains non-verbal. Continues on IV fluids. Was given IV Bumex yesterday. Does not appear fluid overloaded today. Weight today is at admission weight baseline. Renal function continues to improve. Liver enzymes normalized. Continue on Flagyl for GI coverage. Encourage oral intake as able.
[2017-11-20] MEDS: DONEPEZIL 10 MG TABLET PO SCH (20:42)
[2017-11-20] MEDS: LATANOPROST 0.005% EYE DROPS 2.5ml EACH EYE SCH (20:43)
[2017-11-20] MEDS: GABAPENTIN 600 MG TABLET PO SCH (20:49)
[2017-11-21] MEDS: MetroNIDAZOLE PB 500 MG/100 ML BAG IV SCH ×3 (02:08→16:51)
[2017-11-21] MEDS: OMEPRAZOLE 20 MG CAPSULE PO SCH (06:11)
[2017-11-21] MEDS: ARFORMOTEROL NEB 15mcg/2ml AEROSOL SCH ×2 (07:41→19:31)
[2017-11-21] MEDS: BUDESONIDE INH.SOLN 0.5mg/2ml NEB AEROSOL SCH ×2 (07:41→19:31)
[2017-11-21] MEDS: 1/2 NS 1,000 ML IV SCH (10:00)
--- NOTE | 2017-11-21 10:05 | Pharmacy Consult- Renal Dosing ---
Ph[facility] Consul-Renal Dosing - Laboratory Information 11/16/17 11/17/17 11/17/17 10:53 04:41 16:13 BUN 109.0 H* 96.0 H* 79.0 H* Creatinine 3.8 H 2.9 H D 2.4 H D 11/18/17 11/19/17 11/20/17 04:23 05:30 05:07 BUN 63.0 H* 45.0 H 32.0 H Creatinine 1.9 H D 1.5 H D 1.4 H D 11/21/17 04:17 BUN 27.0 H Creatinine 1.2 D - Consult Information Medications appear appropriate for renal function for today. Thanks
[2017-11-21] MEDS: CLOPIDOGREL 75 MG TABLET PO SCH (10:14)
[2017-11-21] MEDS: GABAPENTIN 600 MG TABLET PO SCH ×2 (10:15→21:56)
--- NOTE | 2017-11-21 10:27 | Progress Note ---
- Date 11/21/17 Subjective: Mrs Duran is seen this morning initially while in bed and later while bathing with nursing staff. She is awake and does answer simple questions. Nursing oats that she was more tired this morning. However, did receive Ativan overnight for agitation. She is breathing on room air without distress. Nursing staff reports that patient did eat with assistance and took all morning medications without difficulty. She does not appear to be in any acute distress or pain. Objective Vital signs: Temperature 97.3 F 11/21/17 08:00 Pulse Rate 74 11/21/17 08:00 Respiratory Rate 18 11/21/17 08:00 Blood Pressure 169/71 H 11/21/17 08:00 Pulse Oximetry 93 11/21/17 08:00 Height/Weight/BMI: Height 1.6 m Weight 69.8 kg Body Mass Index 25.8 - Constitutional Present: no acute distress, well nourished, well developed - Routine HEENT Exam Eye: Present: EOMI ENT: Present: mucous membranes moist, dentition normal - Routine Respiratory Exam Present: CTA bilaterally. Absent: wheezes - Routine Cardiovascular Exam Present: RRR, S1, S2. Absent: murmur - Routine Abdominal Exam Present: soft, normoactive bowel sounds, non distended. Absent: tenderness - Routine Extremities Exam Present: normal capillary refill - Routine Skin Exam Present: intact, dry, warm - Routine Neurological Exam Present: alert, CN II-XII intact, moving all extremities - Routine Lymphatic Exam Lymphatic: Absent: adenopathy - Routine Psychiatric Exam Present: normal affect, normal thought process, cooperative Results - Labs CBC & Chem 7: 11/21/17 04:17 11/21/17 04:17 Assessment and Plan (1) Hyperkalemia Current visit: Yes Status: Acute (2) Acute renal failure Current visit: Yes Status: Acute (3) Altered mental status Current visit: Yes Status: Acute Assessment and Plan: Assessment: Acute kidney injury (POA) Critical hyperkalemia (K 7.0), POA - chronic history of hypokalemia Altered mental status, POA Left lower quadrant abdominal pain, POA Acute diverticulosis Leukocytosis (WBC 14.7), POA Hypernatremia (Na 147), POA Transaminitis (AST 77, ALT 100), POA A-fib with pacemaker placement Hypertension Diastolic congestive heart failure CAD Hyperlipidemia Chronic kidney disease, stage III Diabetes mellitus Osteoarthritis Obstructive sleep apnea with home CPAP Dementia with history of behaviors Insomnia COPD/Asthma Constipation Peripheral neuropathy Hemorrhoids Allergic rhinitis GERD Fibromyalgia Anxiety and depression Plan Mild hypokalemia- will give a one time PO 40 Meq at noon for supplementation Overall doing good and eating with assistance Continues on Metronidazole for tx of diverticulosis- Day #5 monitor BP as it was slightly elevated this morning Hopeful for discharge in the next few days Case discussed with CM and attending, Dr Kenny Will go SNU at [place] DVT Prophylaxis: SCD's, CY [place] GI Prophylaxis: Protonix Resuscitation Status: Full Code - Physician Narrative Physician: Caro Kenny MD Narrative: Date: 11/21/17 Time: 1013 I have independently interviewed and examined patient. Patient chart reviewed. Case discussed with my TERRAZZO INSTALLER. Care plan developed with my supervision, agree with above. Patient resting in bed at the time of interview. Admitted with acute kidney injury, significant hyperkalemia with potassium level of 7.0, altered mental status, acute diverticulitis with left lower abdominal pain, history of coronary artery disease, diastolic CHF. Patient opens eyes on strong verbal and tactile stimuli. Noted to have decreased appetite although as reported by nurse , patient consumed all of her vanilla pudding. After discussing case with [facility] facility, patient does not have milk allergy which was confirmed. Patient has swelling and redness in her left great toe at MCP joint, concerning for gout flare. Uric acid requested. Physical exam: Drowsy, arousable, opens eyes however does not respond to verbal queries, in mild painful distress PERRLA, EOMI S1 and S2 heard on auscultation, no murmurs Lungs clear to auscultation bilaterally, no wheezing, no crackles Abdomen soft, nontender, positive bowel sounds Redness, tenderness with swelling in left MCP joint. No edema bilateral lower extremities. Assessment: Acute kidney injury, altered mental status, acute diverticulitis, hyperkalemia, leukocytosis, improved, atrial fibrillation status post pacemaker placement, hypertension, coronary artery disease, diastolic CHF, hyperlipidemia , [facility], diabetes mellitus type 2, obstructive sleep apnea on home CPAP, dementia, peripheral neuropathy, fibromyalgia, anxiety, GERD, COPD. Plan: We will continue Flagyl antibiotic for diverticulosis. Concern for gouty arthritis left MCP joint, uric acid level requested. We will provide colchicine 0.6 mg by mouth 1. Speech therapy, PT/OT on board. Otherwise, mental status [place], patient likely close to baseline. manager work on board with disposition arrangement. Hospital Course Summary Disclaimer: The visit summary below is not to be considered part of the above Progress Note. Hospital Course: 11/16/17 Admit to ICU under the care of Dr. Back. Patient received calcium gluconate, D50, continuous albuterol, 10 units of regular insulin and 1 amp bicarb in ED with NS 500cc bolus. Initial K+ 7.0 with decreased to 5.7. Monitor serial potassium levels. Monitor closely on telemetry with continuous pulse oximetry. Currently being treated as outpatient with Levaquin initiated 11/10/17-11/20/17 for reported cough, though family believes treatment was for UTI. Give altered mental status with history of dementia as well as HOLGER which can occur in patients taking fluoroquinolones with TRUDY-I, will discontinue Levaquin at this time. CXR in ED was unremarkable as well as CT head. Initiate respiratory cares including DuoNeb treatments QID and PRN as well as Pulmicort BID. Oxygen as indicated to maintain SAO2 >92%, weaning as able. senior care reports PRN orders for oxygen though patient does not typically require daytime oxygen. Patient supposed to use CPAP at night but often refuses. ABG obtained revealed metabolic acidosis with pH 7.337 and pCO2 low at 30. Monitor serial labs and recheck labs in AM. Upon discharge, patient's cares will be returned to her PCP, Dr. Maria. Patient is a FULL CODE. 11/17/17 Initiate Metronidazole for GI coverage due to diverticulitis - Pen allergy exclude Zosyn, and wish to avoid fluoroquinolones at this time. Sodium with increase from 147 to 148 despite 1/2NS; will change to D5W at 100cc/ hr. Bumex 0.5mg x1 to waste potassium as potassium with increase to 6.2 this am. Recheck BMP this afternoon. Speech working with patient - therapeutic NPO due to decreased level of consciousness. RVR overnight - rate improved with IV diltiazem drip, Digoxin given. BP showing increase this afternoon -- restart diltiazem at home 180mg daily. Monitor BP. 11/18/17 Renal status improving - creatinine decreased to 1.9 with BUN 63. Potassium 4.3 with Sodium 143. Continue D5W but decrease to 75cc/hr - will give Bumex 0.5mg x1. Heart rate improved on home metoprolol and diltiazem. Continue metronidazole for GI coverage due to diverticulitis. Continue Speech Therapy to improve swallow function - diet being advanced. With clinical improvements can transfer to medical floor for continuation of care. 11/19/17 Renal status improving - creatinine decreased to 1.5 with BUN 45. Potassium 4.0 with Sodium 139. Urine output increased. Change IVF to 1/2NS at 50cc/hr as sodium decreasing. Will give Bumex 1mg x1. Continue metronidazole for GI coverage due to diverticulitis - WBC 12.9. Patient not reporting ab pain. Encourage oral intake as able. 11/20/17 Overall appears to be improving, although remains non-verbal. Continues on IV fluids. Was given IV Bumex yesterday. Does not appear fluid overloaded today. Weight today is at admission weight baseline. Renal function continues to improve. Liver enzymes normalized. Continue on Flagyl for GI coverage. Encourage oral intake as able. 11/21/17 Mild hypokalemia- will give a one time PO 40 Meq at noon for supplementation Overall doing good and eating with assistance Continues on Metronidazole for tx of diverticulosis- Day #5 monitor BP as it was slightly elevated this morning Hopeful for discharge in the next few days Case discussed with CM and attending, Dr Kenny Will go SNU at [place]
[2017-11-21] MEDS ORDERED: COLCHICINE 0.6 MG TABLET PO ONE (16:45)
[2017-11-21] MEDS: LATANOPROST 0.005% EYE DROPS 2.5ml EACH EYE SCH (20:35)
[2017-11-21] MEDS: DONEPEZIL 10 MG TABLET PO SCH (21:56)
[2017-11-22] MEDS: MetroNIDAZOLE PB 500 MG/100 ML BAG IV SCH ×3 (01:16→17:37)
[2017-11-22] MEDS: OMEPRAZOLE 20 MG CAPSULE PO SCH (06:43)
[2017-11-22] MEDS: BUDESONIDE INH.SOLN 0.5mg/2ml NEB AEROSOL SCH ×2 (06:55→19:03)
[2017-11-22] MEDS: ARFORMOTEROL NEB 15mcg/2ml AEROSOL SCH ×2 (06:55→19:03)
[2017-11-22] MEDS: 1/2 NS 1,000 ML IV SCH (09:03)
[2017-11-22] MEDS: CLOPIDOGREL 75 MG TABLET PO SCH (09:05)
[2017-11-22] MEDS: GABAPENTIN 600 MG TABLET PO SCH ×2 (09:05→21:10)
--- NOTE | 2017-11-22 11:03 | Progress Note ---
- Date 11/22/17 Subjective: F/U: Acute kidney injury, Critical hyperkalemia, Altered mental status Aurelia is seen this morning while resting in bed. She briefly awakens with loud voice and stimuli but quickly falls back to sleep. Does not appear in any acute distress. She did receive Ativan last night for reported agitation. She is breathing easily on room air and remains afebrile. WBC trending down and hemoglobin stable. Nursing reports that she did not eat well last night and continues to require assistance. Left hand is noted to have some erythema and swelling along the dorsal aspect without significant warmth or red streaking. Objective Vital signs: Temperature 97.6 F 11/22/17 08:00 Pulse Rate 74 11/22/17 08:00 Respiratory Rate 18 11/22/17 08:00 Blood Pressure 133/66 11/22/17 09:15 Pulse Oximetry 96 11/22/17 08:00 Rhythm: Normal Sinus Rhythm Height/Weight/BMI: Height 5 ft 3 in Weight 155 lb 13.869 oz Body Mass Index 25.8 Comments: Sleeping. Awakens briefly. - Constitutional Present: no acute distress, well nourished, well developed, somnolent Comments: Drowsy, arousable, opens eyes briefly however does not respond to verbal queries. No apparent distress. - Routine HEENT Exam Head: Present: normocephalic, atraumatic Eye: Present: PERRL. Absent: conjunctival icterus Comments: Unable to assess. - Routine Respiratory Exam Present: CTA bilaterally. Absent: respiratory distress, wheezes - Routine Cardiovascular Exam Present: RRR, S1, S2, no murmur - Routine Abdominal Exam Present: soft, normoactive bowel sounds, non tender - Routine Extremities Exam Present: no edema (lower extremities), pulses intact Comments: Erythema with swelling along dorsal left hand/left MCP joint. - Routine Musculoskeletal Exam Musculoskeletal: Present: no clubbing or cyanosis - Routine Skin Exam Present: dry, warm Comments: Afebrile. - Routine Psychiatric Exam Absent: agitated Comments: Somnolent and drowsy. Results - Labs CBC & Chem 7: 11/22/17 04:15 11/22/17 04:15 Assessment and Plan (1) Acute renal failure Current visit: Yes Status: Acute (2) Hyperkalemia Current visit: Yes Status: Acute (3) Altered mental status Current visit: Yes Status: Acute Assessment and Plan: Assessment: Acute kidney injury (POA) Critical hyperkalemia (K 7.0), POA - chronic history of hypokalemia Altered mental status, POA Left lower quadrant abdominal pain, POA Acute diverticulosis Leukocytosis (WBC 14.7), POA Hypernatremia (Na 147), POA Transaminitis (AST 77, ALT 100), POA A-fib with pacemaker placement Hypertension Diastolic congestive heart failure CAD Hyperlipidemia Chronic kidney disease, stage III Diabetes mellitus Osteoarthritis Obstructive sleep apnea with home CPAP Dementia with history of behaviors Insomnia COPD/Asthma Constipation Peripheral neuropathy Hemorrhoids Allergic rhinitis GERD Fibromyalgia Anxiety and depression Plan Continues on Metronidazole for tx of diverticulosis- Day #6. Left dorsal hand with swelling and erythema, specifically along MCP joint. Colchicine 0.6mg PO x 1 dose given 11/21/17. Uric acid normal at 6.5. Leukocytosis slowly improving. Remains afebrile. May consider addition of treatment of possible cellulitis to left hand given suspect for prior skin puncture for attempted IV. Avoid NSAIDS given recent HOLGER. Hypokalemia resolved. Renal function improved and close to baseline. Weight trending up. Continue to monitor closely. Has required Ativan during the evenings due to agitation which is suspected to be contributing to daytime somnolence/fatigue. Poor oral intake last night and continues to require assistance with eating. Suspect close to baseline. Case management continues to work on discharge planning. Anticipate discharge in the near future. DVT Prophylaxis: SCD's, CY [place] GI Prophylaxis: Protonix Resuscitation Status: Full Code - Time spent with patient Time with patient PN: 30 minutes - Physician Narrative Physician: Caro Kenny MD Narrative: Date: 11/22/17 Time: 8092 I have independently interviewed and examined patient. Patient chart reviewed. Case discussed with my PA. Care plan developed with my supervision, agree with above. Patient resting in bed, opens eyes only on strong tactile stimuli. Does not appear in significant distress. Erythema noted on dorsal aspect of left upper extremity near the left wrist at site of previous IV line which has been removed. Patient continues to have erythema left foot MCP joint although nontender today on palpation. Uric acid normal at 6.5. Physical exam: Drowsy, arousable, opens eyes however does not respond to verbal queries, not in acute distress PERRLA, EOMI S1 and S2 heard on auscultation, no murmurs Lungs clear to auscultation bilaterally, no wheezing, no crackles Abdomen soft, nontender, positive bowel sounds Nontender erythema in left MCP joint. Erythema noted on left hand, wrist on dorsal aspect. No edema bilateral lower extremities. Assessment: Acute kidney injury, altered mental status, acute diverticulitis, hyperkalemia, leukocytosis, improved, atrial fibrillation status post pacemaker placement, hypertension, coronary artery disease, diastolic CHF, hyperlipidemia , CK [facility], diabetes mellitus type 2, obstructive sleep apnea on home CPAP, dementia, peripheral neuropathy, fibromyalgia, anxiety, GERD, COPD. Plan: We'll continue metronidazole for diverticulosis treatment. Hypokalemia resolved. Continues to have poor oral intake and requires assistance with feeding. Aspiration risk. position description manager on board, tentative plan for discharge back to custodial facility in the next few days. Concern for when necessary doses of Ativan causing increased daytime somnolence. We will discontinue Ativan. Hospital Course Summary Disclaimer: The visit summary below is not to be considered part of the above Progress Note. Hospital Course: 11/16/17 Admit to ICU under the care of Dr. Back. Patient received calcium gluconate, D50, continuous albuterol, 10 units of regular insulin and 1 amp bicarb in ED with NS 500cc bolus. Initial K+ 7.0 with decreased to 5.7. Monitor serial potassium levels. Monitor closely on telemetry with continuous pulse oximetry. Currently being treated as outpatient with Levaquin initiated 11/10/17-11/20/17 for reported cough, though family believes treatment was for UTI. Give altered mental status with history of dementia as well as HOLGER which can occur in patients taking fluoroquinolones with TRUDY-I, will discontinue Levaquin at this time. CXR in ED was unremarkable as well as CT head. Initiate respiratory cares including DuoNeb treatments QID and PRN as well as Pulmicort BID. Oxygen as indicated to maintain SAO2 >92%, weaning as able. [facility] reports PRN orders for oxygen though patient does not typically require daytime oxygen. Patient supposed to use CPAP at night but often refuses. ABG obtained revealed metabolic acidosis with pH 7.337 and pCO2 low at 30. Monitor serial labs and recheck labs in AM. Upon discharge, patient's cares will be returned to her PCP, Dr. Maria. Patient is a FULL CODE. 11/17/17 Initiate Metronidazole for GI coverage due to diverticulitis - Pen allergy exclude Zosyn, and wish to avoid fluoroquinolones at this time. Sodium with increase from 147 to 148 despite 1/2NS; will change to D5W at 100cc/ hr. Bumex 0.5mg x1 to waste potassium as potassium with increase to 6.2 this am. Recheck BMP this afternoon. Speech working with patient - therapeutic NPO due to decreased level of consciousness. RVR overnight - rate improved with IV diltiazem drip, Digoxin given. BP showing increase this afternoon -- restart diltiazem at home 180mg daily. Monitor BP. 11/18/17 Renal status improving - creatinine decreased to 1.9 with BUN 63. Potassium 4.3 with Sodium 143. Continue D5W but decrease to 75cc/hr - will give Bumex 0.5mg x1. Heart rate improved on home metoprolol and diltiazem. Continue metronidazole for GI coverage due to diverticulitis. Continue Speech Therapy to improve swallow function - diet being advanced. With clinical improvements can transfer to medical floor for continuation of care. 11/19/17 Renal status improving - creatinine decreased to 1.5 with BUN 45. Potassium 4.0 with Sodium 139. Urine output increased. Change IVF to 1/2NS at 50cc/hr as sodium decreasing. Will give Bumex 1mg x1. Continue metronidazole for GI coverage due to diverticulitis - WBC 12.9. Patient not reporting ab pain. Encourage oral intake as able. 11/20/17 Overall appears to be improving, although remains non-verbal. Continues on IV fluids. Was given IV Bumex yesterday. Does not appear fluid overloaded today. Weight today is at admission weight baseline. Renal function continues to improve. Liver enzymes normalized. Continue on Flagyl for GI coverage. Encourage oral intake as able. 11/21/17 Mild hypokalemia- will give a one time PO 40 Meq at noon for supplementation Overall doing good and eating with assistance Continues on Metronidazole for tx of diverticulosis- Day #5 monitor BP as it was slightly elevated this morning Hopeful for discharge in the next few days Case discussed with CM and attending, Dr Kenny Will go SNU at [place] 8/14/18 Continues on Metronidazole for tx of diverticulosis- Day #6. Left dorsal hand with swelling and erythema, specifically along MCP joint. Colchicine 0.6mg PO x 1 dose given 11/21/17. Uric acid normal at 6.5. Leukocytosis slowly improving. Remains afebrile. May consider addition of treatment of possible cellulitis to left hand given suspect for prior skin puncture for attempted IV. Avoid NSAIDS given recent HOLGER. Hypokalemia resolved. Renal function improved and close to baseline. Weight trending up. Continue to monitor closely. Has required Ativan during the evenings due to agitation which is suspected to be contributing to daytime somnolence/fatigue. Poor oral intake last night and continues to require assistance with eating. Suspect close to baseline. Case management continues to work on discharge planning. Anticipate discharge in the near future.
[2017-11-22] MEDS: DONEPEZIL 10 MG TABLET PO SCH (21:11)
[2017-11-22] MEDS: LATANOPROST 0.005% EYE DROPS 2.5ml EACH EYE SCH (21:11)
[2017-11-23 00:11] VITALS: TEMP 98.3
[2017-11-23] MEDS: MetroNIDAZOLE PB 500 MG/100 ML BAG IV SCH ×2 (01:33→09:30)
[2017-11-23] MEDS: OMEPRAZOLE 20 MG CAPSULE PO SCH (05:46)
[2017-11-23] MEDS: BUDESONIDE INH.SOLN 0.5mg/2ml NEB AEROSOL SCH (07:03)
[2017-11-23] MEDS: ARFORMOTEROL NEB 15mcg/2ml AEROSOL SCH (07:03)
[2017-11-23] MEDS: CLOPIDOGREL 75 MG TABLET PO SCH (09:29)
[2017-11-23] MEDS: GABAPENTIN 600 MG TABLET PO SCH (09:30)
[2017-11-23] MEDS: 1/2 NS 1,000 ML IV SCH (09:39)
--- NOTE | 2017-11-23 10:26 | Extended Care Facility Orders ---
<Sherice Aguayo V - Last Filed: 11/23/17 10:23> Admission Orders Admit to:: Group Home Allergies/Adverse Reactions: Allergies cephalexin Allergy (Intermediate, Verified 11/16/17 10:45) cefuroxime [From Ceftin] Allergy (Unknown, Verified 11/16/17 10:45) iodine Allergy (Unknown, Verified 11/16/17 10:45) Penicillins Allergy (Unknown, Verified 11/16/17 10:45) gluten Adverse Reaction (Intermediate, Verified 11/16/17 10:45) diarrhea, stomach cramps Admitting Diagnosis: HOLGER, Hyperkalemia, Somnolence Admitting Physician: Caro Kenny MD Attending Physician: Caro Kenny MD Code Status: Do Not resuscitate Anticiapted Length of Stay: 30 days or less Diet: Mechanical soft with ground meats with syrup thick liquids May use Facility Protocol or Standing Orders: Yes May have flu vaccine: Yes Evaluations/Treatment: PT, OT Group Home Certification: I certify that SNF services are required to be given on an inpatient basis because of the patient's need for long term care on a continuing basis for the condition(s) for which he/she received inpatient hospital services prior to his/her transfer to the SNF. SNF inpatient care is necessary for the following reasons: Indication for Group Home: Other (PT/OT) - Additional Information In Event of Arrest: Do Not Start CPR Referrals: Juan Maria MD [Primary Care Provider] - (Please schedule follow up apt for 1 week ) <Caro Kenny - Last Filed: 11/23/17 13:26> Admission Orders Admitting Diagnosis: HOLGER, Hyperkalemia, Somnolence Admitting Physician: Caro Kenny MD Attending Physician: Caro Kenny MD Code Status: Full Code Diet: 11/23/17 Lunch Regular Diet [DIET] Diet Modifications: Fluid Consistency: SYRNEC Food Consistency: MECSOF Other Diet Modifiers: FEEDASSIST Comment: GROUND MEATS Group Home Certification: I certify that SNF services are required to be given on an inpatient basis because of the patient's need for long term care on a continuing basis for the condition(s) for which he/she received inpatient hospital services prior to his/her transfer to the SNF. SNF inpatient care is necessary for the following reasons:
[2017-11-23] MEDS ORDERED: DOXYCYCLINE 25 MG/5 ML PO SCH (10:30)
[2017-11-23 11:12] VITALS: BP 171/74; PULSE 90
[2017-11-23 11:21] VITALS: RESP 16
--- NOTE | 2017-11-23 12:04 | Discharge Summary ---
Discharge Information Date of admission: 11/16/17 12:49 Anticipated date of discharge: 11/23/17 Attending Physician: Caro Kenny MD Primary care physician: Juan Maria MD Consults: None - Discharge Diagnosis (1) Hyperkalemia Status: Acute (2) Acute renal failure Status: Acute (3) Altered mental status Status: Acute Problems Reviewed?: Yes Acute kidney injury (POA) Critical hyperkalemia (K 7.0), POA - chronic history of hypokalemia Altered mental status, POA Left lower quadrant abdominal pain, POA Acute diverticulosis Leukocytosis (WBC 14.7), POA Hypernatremia (Na 147), POA Transaminitis (AST 77, ALT 100), POA A-fib with pacemaker placement Hypertension Diastolic congestive heart failure CAD Hyperlipidemia Chronic kidney disease, stage III Diabetes mellitus Osteoarthritis Obstructive sleep apnea with home CPAP Dementia with history of behaviors Insomnia COPD/Asthma Constipation Peripheral neuropathy Hemorrhoids Allergic rhinitis GERD Fibromyalgia Anxiety and depression - Procedures Procedures: None - Laboratory Labs: 11/23/17 04:18 11/23/17 04:18 - Microbiology None - Radiology Radiology: 11-16-17 Chest [id number] without focal pneumonia or congestive failure. CT head- No acute intracranial abnormality or hemorrhage. Renal sonogram- No hydronephrosis. CT abdomen, pelvis without contrast- 1. Acute sigmoid diverticulitis. 2. Possible infectious or inflammatory infiltrate in the left lower lobe. 11-17-17- Chest Xray- No focal pneumonia or overt congestive failure. - Pathology N/A History of Present Illness HPI: Aurelia Duran is an 87-year-old female patient of Dr. Juan Maria who current resides at [place]. jail staff reports she was being treated empirically with Levaquin for a suspected infection, though it is unclear if the source of infection was believed to be pulmonary or urinary. Reportedly over the past 24 hours, Aurelia has had a decline in her mental status with increased somnolence and questionable hypoxia prompting the snf to [place] [facility]. Upon arrival to the ED, she was barely arousable with loud voice and quickly went back to sleep. She has a known history of dementia and was unable to answer questions or contribute to the history, thus limiting the exam. Labs were obtained and revealed hypernatremia (Na 147) with critical hyperkalemia (K 7.0), elevated BUN and SCr at 109 and 3.78 respectively and leukocytosis (WBC 14.7). [place] [address] head and CXR were both unremarkable. She was given 500cc bolus of NS with 1 amp of calcium gluconate, 1 amp of D50, 10 units of regular insulin, 1 amp of bicarb and continuous albuterol for treatment of her hyperkalemia. She was also given Kayexalate 30mg rectally. Recheck of potassium following treatment was improved at 5.7. Due to her decreased level of consciousness with critical hyperkalemia and acute kidney injury, Dr. Back was consulted and was admitted to the ICU for close monitoring, continued treatment, serial labs. Objective Vital signs: Temperature 98.3 F 11/23/17 00:00 Pulse Rate 90 11/23/17 11:18 Respiratory Rate 16 11/23/17 11:18 Blood Pressure 171/74 H 11/23/17 08:00 Pulse Oximetry 94 11/23/17 11:18 Rhythm: Normal Sinus Rhythm Height/Weight/BMI: Height 1.6 m Weight 70.7 kg Body Mass Index 25.8 - Constitutional Present: no acute distress, well nourished, well developed - Routine HEENT Exam Eye: Present: EOMI ENT: Present: mucous membranes moist, dentition normal - Routine Respiratory Exam Present: CTA bilaterally. Absent: wheezes - Routine Cardiovascular Exam Present: RRR, S1, S2. Absent: murmur - Routine Abdominal Exam Present: soft, normoactive bowel sounds, non distended. Absent: tenderness - Routine Extremities Exam Present: pulses intact Comments: Swelling and mild erythema to left hand - Routine Back/Spine/Pelvis Exam Back/Spine: Present: full ROM - Routine Skin Exam Present: intact, dry, warm - Routine Neurological Exam Present: alert, CN II-XII intact, altered mental status - Routine Lymphatic Exam Lymphatic: Absent: adenopathy - Routine Psychiatric Exam Present: cooperative Hospital Course This is a general summary of the patient's hospital course. For more details refer to the complete medical record. Hospital course: 11/16/17 Admit to ICU under the care of Dr. Back. Patient received calcium gluconate, D50, continuous albuterol, 10 units of regular insulin and 1 amp bicarb in ED with NS 500cc bolus. Initial K+ 7.0 with decreased to 5.7. Monitor serial potassium levels. Monitor closely on telemetry with continuous pulse oximetry. Currently being treated as outpatient with Levaquin initiated 11/10/17-11/20/17 for reported cough, though family believes treatment was for UTI. Give altered mental status with history of dementia as well as HOLGER which can occur in patients taking fluoroquinolones with TRUDY-I, will discontinue Levaquin at this time. CXR in ED was unremarkable as well as CT head. Initiate respiratory cares including DuoNeb treatments QID and PRN as well as Pulmicort BID. Oxygen as indicated to maintain SAO2 >92%, weaning as able. jail reports PRN orders for oxygen though patient does not typically require daytime oxygen. Patient supposed to use CPAP at night but often refuses. ABG obtained revealed metabolic acidosis with pH 7.337 and pCO2 low at 30. Monitor serial labs and recheck labs in AM. Upon discharge, patient's cares will be returned to her PCP, Dr. Maria. Patient is a FULL CODE. 11/17/17 Initiate Metronidazole for GI coverage due to diverticulitis - Pen allergy exclude Zosyn, and wish to avoid fluoroquinolones at this time. Sodium with increase from 147 to 148 despite 1/2NS; will change to D5W at 100cc/ hr. Bumex 0.5mg x1 to waste potassium as potassium with increase to 6.2 this am. Recheck BMP this afternoon. Speech working with patient - therapeutic NPO due to decreased level of consciousness. RVR overnight - rate improved with IV diltiazem drip, Digoxin given. BP showing increase this afternoon -- restart diltiazem at home 180mg daily. Monitor BP. 11/18/17 Renal status improving - creatinine decreased to 1.9 with BUN 63. Potassium 4.3 with Sodium 143. Continue D5W but decrease to 75cc/hr - will give Bumex 0.5mg x1. Heart rate improved on home metoprolol and diltiazem. Continue metronidazole for GI coverage due to diverticulitis. Continue Speech Therapy to improve swallow function - diet being advanced. With clinical improvements can transfer to medical floor for continuation of care. 11/19/17 Renal status improving - creatinine decreased to 1.5 with BUN 45. Potassium 4.0 with Sodium 139. Urine output increased. Change IVF to 1/2NS at 50cc/hr as sodium decreasing. Will give Bumex 1mg x1. Continue metronidazole for GI coverage due to diverticulitis - WBC 12.9. Patient not reporting ab pain. Encourage oral intake as able. 11/20/17 Overall appears to be improving, although remains non-verbal. Continues on IV fluids. Was given IV Bumex yesterday. Does not appear fluid overloaded today. Weight today is at admission weight baseline. Renal function continues to improve. Liver enzymes normalized. Continue on Flagyl for GI coverage. Encourage oral intake as able. 11/21/17 Mild hypokalemia- will give a one time PO 40 Meq at noon for supplementation Overall doing good and eating with assistance Continues on Metronidazole for tx of diverticulosis- Day #5 monitor BP as it was slightly elevated this morning Hopeful for discharge in the next few days Case discussed with CM and attending, Dr Kenny Will go SNU at [place] 11/22/17 Continues on Metronidazole for tx of diverticulosis- Day #6. Left dorsal hand with swelling and erythema, specifically along MCP joint. Colchicine 0.6mg PO x 1 dose given 11/21/17. Uric acid normal at 6.5. Leukocytosis slowly improving. Remains afebrile. May consider addition of treatment of possible cellulitis to left hand given suspect for prior skin puncture for attempted IV. Avoid NSAIDS given recent HOLGER. Hypokalemia resolved. Renal function improved and close to baseline. Weight trending up. Continue to monitor closely. Has required Ativan during the evenings due to agitation which is suspected to be contributing to daytime somnolence/fatigue. Poor oral intake last night and continues to require assistance with eating. Suspect close to baseline. Case management continues to work on discharge planning. Anticipate discharge in the near future. 11/23/17- Discharge Aurelia is seen today in follow up. She is alert up in the chair and states that she is feeling good today. She is comfortably breathing on room air without evidence of distress. She does have some continued mild erythema to the right hand and wrist. We will continue patient on doxycycline to cover infection. Resume home Vasotec 5 milligrams twice a day for blood pressure control. 2. Monitor renal function carefully, given recent acute kidney injury. Creatinine at discharge is improved at 1.1. She will plan to return to [facility] under the primary care of Dr. Maria. Time spent with patient: discharge greater than 30 minutes Discharge Plan - Discharge Disposition Discharge Date: 11/23/17 Disposition: 03 To SNU Not [facility] (SNF) *Condition: Critical Reason For Visit (Visit label in EMR): HOLGER, Hyperkalemia, Somnolence - Discharge Medications *Discharge Medications: New Enalapril [Vasotec] 1 tab PO BID #20 tab Doxycycline Oral Liq [Vibramycin Liquid] 100 mg PO BIDWM 5 Days #10 ml Continue Albuterol Sulfate [Proair Hfa] 2 puff INH Q4HR PRN #0 PRN Reason: WHEEZING Budesonide/Formoterol Fumarate [Symbicort 160-4.5 Mcg Inhaler] 2 puff INH BID #0 Mag Hydrox/Aluminum Hyd/Simeth [Alum-Mag Hydroxide-Simeth Liq] 30 ml PO Q4H PRN #0 PRN Reason: EPIGASTRIC DISTRESS Dextran 70/Hypromellose [Artificial Tears Eye Drops] 1 drop EACH EYE QID PRN #0 PRN Reason: dry eyes Loperamide HCl [Imodium A-D] 2 mg PO QID PRN PRN Reason: Diarrhea Albuterol/Ipratropium [Duoneb] 3 ml AEROSOL Q4H PRN PRN Reason: Cough Guaifenesin/Dextromethorphan [Guaifenesin Dm Syrup] 10 ml PO Q4H PRN PRN Reason: Cough Magnesium Hydroxide [Milk of Magnesia] 30 ml PO Q12H PRN PRN Reason: Constipation Acetaminophen 650 mg PO Q4H PRN PRN Reason: Fever Hydrocortisone 2.5% Cream [Anusol-Hc 2.5% Cream] 1 applicatio RECTALLY BID PRN PRN Reason: Prn Orders guaiFENesin [Mucinex] 600 mg PO Q12H PRN PRN Reason: Congestion Bisacodyl Supp [Dulcolax] 10 mg RECTALLY DAILY PRN PRN Reason: Constipation Acetaminophen [Acetaminophen Extra Strength] 1,000 mg PO Q4H PRN PRN Reason: Pain dilTIAZem HCl [Diltiazem 24Hr ER] 180 mg PO DAILY Omeprazole [Prilosec] 20 mg PO DAILY Loratadine [Claritin] 10 mg PO DAILY Calcium 600 + D [Caltrate + D] 1 tab PO DAILY Metoprolol Tartrate [Lopressor] 25 mg PO BID Latanoprost 1 drop EACH EYE PM Gabapentin [Neurontin] 600 mg PO BID Donepezil [Aricept 10 mg] 10 mg PO HS LORazepam [Ativan] 0.5 mg PO Q6H PRN #20 tab PRN Reason: Anxiety Tramadol [Ultram] 25 mg PO Q6HR PRN #15 tab PRN Reason: Pain Clopidogrel Bisulfate [Clopidogrel] 75 mg PO DAILY #0 Nystatin 1 applicatio TOP BID PRN #0 PRN Reason: PRN ORDERS Peg 3350 238 G Bottle [Miralax] 17 gm PO DAILY PRN PRN Reason: Constipation Melatonin 6 mg PO HS Discontinued Promethazine HCl 25 mg PO Q12H PRN PRN Reason: Nausea &/Or Vomiting Levofloxacin [Levaquin] 500 mg PO DAILY Enalapril [Vasotec] 5 mg PO BID Potassium Chloride 20 meq PO BID - Discharge Packet/Instructions *Diet: Ground meats, mechanical soft with syrup thick liquids *Activity: As tolerated *Pain Management/Treatment: Ultram or tylenol as needed for pain *Wound Care: N/A Additional Instructions: Doxycycline BID for 5 days *Expected Signs/Symptoms: Continued improvement *Notify Physician if: Fever, chillds, shortness of breath, chest pain or other concerning symptoms *During Business Hours Contact: Dr Maria *After Business Hours Contact: Dr Maria *Pending Lab/Results: No Pending Lab - Referrals/Follow Up *Referrals/Follow Up: Juan Maria MD [Primary Care Provider] - (Please schedule follow up apt for 1 week ) - Patient Handouts - Dismissal Complete Discharge Instructions are:: Complete Physician Narrative - Narrative Physician: Caro Kenny MD Attestation Narrative: Date: 11/23/17 Time: 1200 I have independently interviewed and examined patient. Patient chart reviewed. Case discussed with my SAND WHEELER. Care plan developed with my supervision, agree with above. A pleasant 87-year-old female patient with history of Atrial fibrillation status post pacemaker placement, hypertension, coronary artery disease, diastolic CHF, hyperlipidemia, CKD stage III, diabetes mellitus type 2, obstructive sleep apnea on home CPAP, dementia, peripheral neuropathy, fibromyalgia, anxiety, GERD, COPD admitted with acute kidney injury, critical hyperkalemia, altered mental status, left lower quadrant abdominal pain with evidence of acute diverticulitis, leukocytosis, hypernatremia. On the day of discharge, patient resting comfortably in bed at the time of interview. Erythema in left wrist and hand has improved when compared to yesterday. Patient has some erythema on left foot MCP, nontender. We will provide course of doxycycline on discharge. Patient returned to [facility] and PCP Dr. Maria. Physical exam: Awake, alert, oriented to self and place, NAD PERRLA, EOMI S1 and S2 heard on auscultation, no murmurs Lungs clear to auscultation bilaterally, no wheezing, no crackles Abdomen soft, nontender, positive bowel sounds Nontender erythema in left MCP joint. Improved erythema noted on left hand, wrist on dorsal aspect. No edema bilateral lower extremities.
[2017-11-23 12:49] VITALS: O2SAT 96
[2017-11-23] MEDS ORDERED: DOXYCYCLINE 25 MG/5 ML PO ONE (14:30)
== END 2017-11-23 14:45 | DRG 683 ==
LOC: ED 10:34 → EDHOLD 12:49 → SUATTDRO 12:49 → CCU 13:45 → MED 11-18 15:12
PROVIDERS: ADMIT Hospitalist; ATTEND Internal Medicine